=== PATIENT | female | born 1975 | race Caucasian/White ===

== ENCOUNTER 2018-06-30 14:21 | Emergency (ER) | payer MEDICARE, MEDICAID, SELFPAY ==
[2018-06-30 14:31] VITALS: BP 161/104; PULSE 105; RESP 24; TEMP 36.1; O2SAT 94; BMI 70.4
--- NOTE | 2018-06-30 14:44 | ED.URI ---
HPI - URI/Sore Throat General Chief Complaint: Upper Respiratory Symptoms Stated Complaint: TROUBLE BREATHIG,CONGESTION Time Seen by Provider: 06/30/18 14:44 Source: patient Mode of arrival: ambulatory Limitations: no limitations History of Present Illness HPI Narrative: The patient complains of difficulty breathing. She has had dyspnea for 4 days, with a nonproductive cough. She has no sinus congestion or sore throat. She denies chest pain. She has asthma. She is on diuretics, she has morbid obesity and peripheral edema. She has no known history of CHF. She has no history of hemoptysis, she denies orthopnea. She has no associated abdominal pain. She has severe lower extremity edema, perhaps worse. She does have tenderness in both lower extremities. She denies fever chills with the above complaints. Related Data Home Medications Medication Instructions Recorded Confirmed [PROBIOTIC] 1 tab PO QDAY #0 01/18/16 05/08/18 Proventil HFA 90 mcg See Rx Instructions .ROUTE .COMPLEX 03/05/18 05/08/18 cholecalciferol (vitamin D3) 5,000 5,000 unit PO DAILY 05/08/18 05/08/18 unit capsule Previous Rx's Medication Instructions Recorded Disabled Parking Permit dev #1 02/21/16 fluticasone-salmeterol [Advair 1 puff INH BID #60 dose 04/17/16 Diskus] ipratropium-albuterol 3 ml INH Q6HP PRN #90 ea 04/17/16 propranolol 20 mg PO BID #60 tab 07/17/16 chlorthalidone 25 mg tablet See Rx Instructions PO DAILY #30 03/05/18 tab ibuprofen 800 mg tablet 800 mg PO .QDAY PRN #90 tab 03/05/18 fenofibrate 160 mg tablet 160 mg PO DAILY #30 tab 03/27/18 QUAD CANE #1 ea 05/08/18 spironolactone 25 mg tablet 25 mg PO DAILY #30 tab 05/08/18 tramadol 50 mg tablet 50 mg PO QID #40 tab 05/08/18 Allergies Allergy/AdvReac Type Severity Reaction Status Date / Time latex Allergy Rash Verified 06/30/18 14:35 oxycodone [OXYCODONE] AdvReac Intermediate Irritabilit Verified 06/30/18 14:34 y Review of Systems Review of Systems ROS Unobtainable: All systems reviewed & are unremarkable except as noted in HPI and below Constitutional Denies chills, Denies fever(s), Denies lethargy and Denies weakness Eyes Denies change in vision, Denies eye discharge and Denies irritation ENT Ears, Nose, Mouth, and Throat: Denies change in voice, Denies neck pain, Denies sinus pressure and Denies sore throat Cardiovascular Denies chest pain, Denies irregular heart rhythm, Denies lightheadedness, Denies palpitations, Reports dyspnea and Denies orthopnea Respiratory Reports cough (Nonproductive), Reports dyspnea and Denies wheezing Gastrointestinal Gastrointestinal: Denies abdominal pain, Denies change in bowel habits, Denies diarrhea, Denies nausea and Denies vomiting Musculoskeletal Denies joint swelling and Denies neck pain Integumentary/Breasts Denies erythema, Denies rash and Denies wounds Neurologic Denies weakness Endocrine Denies palpitations Allergic/Immunologic Denies wheezing [facility] Medical History Hypertension (Chronic) Migraines (Chronic) Sleep apnea (Chronic) Ovarian cyst (Resolved 03/28/15) Pneumonia (Resolved 2008) Surgical History History of laparoscopic appendectomy (Resolved 03/28/15) History of ovarian cystectomy (Resolved) History of placement of ear tubes (Resolved) History of tonsillectomy (Resolved) Family History Father No problems noted. Mother No problems noted. Grandfather No problems noted. Grandmother No problems noted. Grandfather No problems noted. Grandmother No problems noted. Sister No problems noted. Social History Smoking Status: Former smoker Tobacco: How many years used: 17 second hand exposure: No alcohol intake: former (I only drank occasionally. I haven't had anything for over 10 years. ) Family History Father No problems noted. Mother No problems noted. Grandfather No problems noted. Grandmother No problems noted. Grandfather No problems noted. Grandmother No problems noted. Sister No problems noted. Social History Smoking Status: Former smoker Tobacco: How many years used: 17 second hand exposure: No alcohol intake: former (I only drank occasionally. I haven't had anything for over 10 years. ) Exam Initial Vital Signs Initial Vital Signs: Vital Signs Temperature 97.0 F L 06/30/18 14:31 Pulse Rate 105 H 06/30/18 14:31 Respiratory Rate 24 06/30/18 14:31 Blood Pressure 161/104 H 06/30/18 14:31 Pulse Oximetry 94 06/30/18 14:31 Const General: cooperative and well developed Nutritional Appearance: well nourished Orientation: alert, awake, oriented x3 and not confused HENMT Head: normocephalic and atraumatic Nose: No nasal discharge Face and sinus: sinuses nontender and face symmetric Mouth: oral mucosae normal and moist mucous membranes Throat: posterior oropharynx normal, tonsils normal and uvula midline Neck Neck: No JVD Chest Chest: normal inspection of the chest Resp Effort & Inspection: normal respiratory effort, able to speak in complete sentences, no respiratory distress and no use of accessory muscles Auscultation: clear to auscultation bilaterally, no rales, no rhonchi and wheezes scattered wheezes Cardio Rate: regular rate Rhythm: regular rhythm Heart Sounds: no click, no gallops, no murmurs and no rubs Pulses: normal peripheral pulses GI Inspection: non-distended Palpation: soft, no hepatosplenomegaly, No guarding, No pulsatile mass and No tender Auscultation: normal bowel sounds Skin General: no rashes or lesions noted, No jaundice and No petechiae Neuro General: alert, oriented x3, gait normal and no focal motor deficits Speech: speech normal Extrem General: full ROM, no clubbing, cyanosis or edema, calf tenderness (Mild, bilateral) and edema (4+ bilateral lower extremities) Course Orders Ordered: ED Orders 06/30/18 14:38 Consult to Respiratory Therapy Evaluate & Treat 06/30/18 14:49 EKG-12 Lead Stat 06/30/18 14:51 Chest [XR chest 2V] Stat 06/30/18 14:52 US periph venous low extrem bi Stat 06/30/18 15:08 B Type Natriuretic Peptide Stat Basic Metabolic Panel Stat Complete Blood Count AUTO DIFF Stat D Dimer Stat Troponin & CK Cardiac Panel Stat Discontinued Medications Albuterol (Ventolin) 2.5 mg INH NOW PRN PRN Reason: Shortness Of Breath Or Wheezing Last Admin: 06/30/18 15:06 Dose: 2.5 mg Albuterol/Ipratropium (Duoneb) 3 ml INH NOW ONE Stop: 06/30/18 14:48 Last Admin: 06/30/18 14:54 Dose: 3 ml Amoxicillin/Clavulanate Potassium (Augmentin 875-125 Mg) 1 tab PO NOW ONE Stop: 06/30/18 17:04 Last Admin: 06/30/18 17:08 Dose: 1 tab Vital Signs - 8 hr 06/30/18 14:31 06/30/18 14:54 06/30/18 15:06 Temperature 97.0 F L Pulse Rate 105 H 96 H 96 H Respiratory Rate 24 20 20 Blood Pressure 161/104 H Blood Pressure [Right Arm] Pulse Oximetry 94 92 93 06/30/18 17:11 Temperature Pulse Rate 84 Respiratory Rate 22 Blood Pressure Blood Pressure [Right Arm] 145/68 H Pulse Oximetry 97 MDM - URI/Sore Throat Lab Data Result diagrams: 06/30/18 15:08 06/30/18 15:08 Lab Results 06/30/18 06/30/18 06/30/18 Range/Units 15:08 15:08 15:08 WBC 9.4 (4.5-11.0) X10^3/uL RBC 4.71 (4.0-5.2) X10^6/uL Hgb 12.9 (12.0-16.0) g/dL Hct 39.1 (36-46) % MCV 83.0 (80-100) fL MCH 27.4 (26-34) PG MCHC 33.1 (30-36) % RDW 15.4 H (11.6-14.8) % Plt Count 244 (150-400) X10^3/uL Neut % (Auto) 66.6 (50-75) % Lymph % (Auto) 24.3 L (25-40) % [place] % (Auto) 6.9 (3-14) % Eos % (Auto) 1.7 L (2-4) % Baso % (Auto) 0.5 (0-2) % Neut # (Auto) 6200 (3004-5459) /uL Lymph # (Auto) 2300 (6622-9664) /uL [place] # (Auto) 600 (0-900) /uL Eos # (Auto) 200 (0-450) /uL Baso # (Auto) 0 (0-100) /uL D-Dimer 324 H (<230) ng/mL Sodium 139 (137-145) mmol/L Potassium 3.8 (3.4-5.1) mmol/L Chloride 100 (98-107) mmol/L Carbon Dioxide 29 (22-32) mmol/L BUN 10 (7-17) mg/dL Creatinine 0.60 (0.52-1.04) mg/dL Estimated GFR > 60.0 (>60) mL/min BUN/Creatinine Ratio 16.7 (6-22) Glucose 125 H (70-100) mg/dL Calcium 9.3 (8.4-10.2) mg/dL Total Creatine Kinase 119 (30-135) U/L CK-MB (CK-2) 0.28 (<2.37) ng/mL CK-MB (CK-2) Rel Index 0.2 L (1.5-5.0) % Troponin I < 0.012 (0.01-0.034) ng/mL B-Natriuretic Peptide < 100 (<100) Imaging Data Chest x-ray: Radiologist's impression: [place] [address] XRay Report Signed Patient: Cady Castillo MMR#: [id number] : 1975Acct:[id number] Age/Sex: 42 / FDate of Service: 06/30/18 Loc: ED Accession Number: [id number] Procedure: XR chest 2V Ordering Provider: Niels Eason M.D. PROCEDURE: XR CHEST 2V INDICATIONS: sob, coughing, wheezing TECHNIQUE: 2 views of the chest were acquired. COMPARISON: None. FINDINGS: Surgical changes and devices: None. Lungs and pleura: Lung volumes are slightly decreased with minimal left to right streaky opacities favored to represent atelectasis. No pleural effusions or pneumothorax. Mediastinum: Mediastinal contours are normal. Heart size is normal. Bones and chest wall: No suspicious bony abnormalities. Soft tissues appear unremarkable. IMPRESSION: Slightly diminished lung volumes with minimal left greater than right streaky opacities which are favored to represent atelectasis. Developing airspace disease/pneumonia not excluded if clinically appropriate. Dictated by: Kamlesh Osman M.D. on 06/30/2018 at 15:53 Approved by: Kamlesh Osman M.D. on 06/30/2018 at 15:54 Bilateral lower extremity Doppler ultrasound:: Radiologist's impression: [address] [address] Ultrasound Report Signed Patient: Cady Castillo [facility]#: [id number] : 1975Acct:[id number] Age/Sex: 42 / FDate of Service: 06/30/18 Loc: ED Accession Number: [id number] Procedure: US periph venous low extrem bi Ordering Provider: Niels Eason M.D. PROCEDURE: US PERIPH VENOUS LOW EXTREM BI INDICATIONS: EDEMA TECHNIQUE: Real-time imaging, as well as color and pulse Doppler interrogation, were performed of the deep veins of both legs from the inguinal ligament to the popliteal fossa. COMPARISON: None. FINDINGS: The deep veins are normally compressible, and free of intraluminal thrombus. Color and pulse Doppler demonstrate normal phasic intravascular flow. There is normal augmentation response to distal compression maneuver. IMPRESSION: Negative for deep venous thrombosis of the bilateral lower extremities. Dictated by: Kamlesh Osman M.D. on 06/30/2018 at 15:49 Approved by: Kamlesh Osman M.D. on 06/30/2018 at 15:50 ECG Data Attestation: I personally reviewed and interpreted this ECG as follows: (Normal sinus rhythm rate 92 bpm. Low-voltage QRS in the precordial leads. Minimal voltage criteria for LVH. No ectopy. Normal intervals. No acute ST T wave changes.) Discharge Plan Departure Patient Disposition: Home Clinical Impression: Bronchitis, Dependent edema Discharge Date/Time: 06/30/18 17:28 Interventions: ED Discharge Assessment Last Done: 06/30/18 17:28 Instructions: DI for Acute Bronchitis Activity Restrictions/Additional Instructions: Continue your current medications. Use your inhalers as needed. Respiratory therapy will start you on incentive spirometer to help keep your lungs clear. I called in Augmentin to [facility] in [place], [place]. The medication will be ready today. Talk to your doctor about the peripheral swelling. You need medication to help decrease the swelling. Return to the ER as needed. Prescriptions: No Action Proventil HFA 90 mcg See Patient Comments .ROUTE .COMPLEX RF: 0 chlorthalidone 25 mg tablet See Rx Instructions PO DAILY Qty: 30 RF: 1 ibuprofen 800 mg tablet 800 mg PO .QDAY PRN (Reason: pain) Qty: 90 RF: 3 fenofibrate 160 mg tablet 160 mg PO DAILY Qty: 30 RF: 6 cholecalciferol (vitamin D3) 5,000 unit capsule 5,000 unit PO DAILY RF: 0 tramadol 50 mg tablet 50 mg PO QID Qty: 40 RF: 0 QUAD CANE Qty: 1 RF: 0 spironolactone 25 mg tablet 25 mg PO DAILY Qty: 30 RF: 1 [PROBIOTIC] 1 tab PO QDAY Qty: 0 RF: 0 Disabled Parking Permit Qty: 1 RF: 0 ipratropium-albuterol 3 ML solution for nebulization 3 ml INH Q6HP PRNQty: 90 RF: 1 fluticasone-salmeterol [Advair Diskus] 500 MCG/50 MCG blister with device 1 puff INH BID Qty: 60 RF: 1 propranolol 20 MG tablet 20 mg PO BID Qty: 60 RF: 12 Referrals: Mayda Mars PA-C [Primary Care Provider] -
--- NOTE | 2018-06-30 14:51 | DI.RAD.S_ITS ---
PROCEDURE: XR CHEST 2V INDICATIONS: sob, coughing, wheezing TECHNIQUE: 2 views of the chest were acquired. COMPARISON: None. FINDINGS: Surgical changes and devices: None. Lungs and pleura: Lung volumes are slightly decreased with minimal left to right streaky opacities favored to represent atelectasis. No pleural effusions or pneumothorax. Mediastinum: Mediastinal contours are normal. Heart size is normal. Bones and chest wall: No suspicious bony abnormalities. Soft tissues appear unremarkable. IMPRESSION: Slightly diminished lung volumes with minimal left greater than right streaky opacities which are favored to represent atelectasis. Developing airspace disease/pneumonia not excluded if clinically appropriate. Dictated by: Kamlesh Osman M.D. on 06/30/2018 at 15:53 Approved by: Kamlesh Osman M.D. on 06/30/2018 at 15:54
--- NOTE | 2018-06-30 14:52 | DI.US.S_ITS ---
PROCEDURE: US PERIPH VENOUS LOW EXTREM BI INDICATIONS: EDEMA TECHNIQUE: Real-time imaging, as well as color and pulse Doppler interrogation, were performed of the deep veins of both legs from the inguinal ligament to the popliteal fossa. COMPARISON: None. FINDINGS: The deep veins are normally compressible, and free of intraluminal thrombus. Color and pulse Doppler demonstrate normal phasic intravascular flow. There is normal augmentation response to distal compression maneuver. IMPRESSION: Negative for deep venous thrombosis of the bilateral lower extremities. Dictated by: Kamlesh Osman M.D. on 06/30/2018 at 15:49 Approved by: Kamlesh Osman M.D. on 06/30/2018 at 15:50
[2018-06-30 14:54] VITALS: PULSE 96; RESP 20; O2SAT 92
[2018-06-30] MEDS: ALBUTEROL/IPRATROPIUM 3 ML AMPUL INH (14:54)
[2018-06-30 15:06] VITALS: PULSE 96; RESP 20; O2SAT 93
[2018-06-30] MEDS: ALBUTEROL 2.5 MG/3 ML NEB (ADULT) INH (15:06)
[2018-06-30 15:18] LABS: Add Manual Diff / Slide Review NO; Basophils Absolute Auto 0 /uL (0-100); Basophils Percent Auto 0.5 % (0-2); Eosinophils Absolute Auto 200 /uL (0-450); Eosinophils Percent Auto 1.7 % (2-4); Hematocrit 39.1 % (36-46); Hemoglobin 12.9 g/dL (12.0-16.0); Lymphocytes Absolute Auto 2300 /uL (1100-4500); Lymphocytes Percent Auto 24.3 % (25-40); Mean Corpuscular HGB Conc 33.1 % (30-36); Mean Corpuscular Hemoglobin 27.4 PG (26-34); Monocytes Absolute Auto 600 /uL (0-900); Monocytes Percent Auto 6.9 % (3-14); Neutrophils Absolute Auto 6200 /uL (1500-7000); Neutrophils Percent Auto 66.6 % (50-75); Platelet Count 244 X10^3/uL (150-400); Red Blood Cell Count 4.71 X10^6/uL (4.0-5.2); Red Cell Distribution Width 15.4 % (11.6-14.8); White Blood Cell Count 9.4 X10^3/uL (4.5-11.0)
[2018-06-30 15:25] LABS: D Dimer 324 ng/mL (<230)
[2018-06-30 15:26] LABS: BUN Creatinine Ratio 16.7 (6-22); Blood Urea Nitrogen 10 mg/dL (7-17); Calcium 9.3 mg/dL (8.4-10.2); Carbon Dioxide 29 mmol/L (22-32); Chloride 100 mmol/L (98-107); Creatine Kinase 119 U/L (30-135); Estimated Glomerular Filt Rate > 60.0 mL/min (>60); Glucose 125 mg/dL (70-100); HEMOLYSIS < 15 (0-50); Potassium 3.8 mmol/L (3.4-5.1); Sodium 139 mmol/L (137-145)
--- NOTE | 2018-06-30 15:28 | ED_ITS ---
HPI - URI/Sore Throat General Chief Complaint: Upper Respiratory Symptoms Stated Complaint: TROUBLE BREATHIG,CONGESTION Time Seen by Provider: 06/30/18 14:44 Source: patient Mode of arrival: ambulatory Limitations: no limitations History of Present Illness HPI Narrative: The patient complains of difficulty breathing. She has had dyspnea for 4 days, with a nonproductive cough. She has no sinus congestion or sore throat. She denies chest pain. She has asthma. She is on diuretics, she has morbid obesity and peripheral edema. She has no known history of CHF. She has no history of hemoptysis, she denies orthopnea. She has no associated abdominal pain. She has severe lower extremity edema, perhaps worse. She does have tenderness in both lower extremities. She denies fever chills with the above complaints. Related Data Home Medications Medication Instructions Recorded Confirmed [PROBIOTIC] 1 tab PO QDAY #0 01/18/16 05/08/18 Proventil HFA 90 mcg See Rx Instructions .ROUTE .COMPLEX 03/05/18 05/08/18 cholecalciferol (vitamin D3) 5,000 5,000 unit PO DAILY 05/08/18 05/08/18 unit capsule Previous Rx's Medication Instructions Recorded Disabled Parking Permit dev #1 02/21/16 fluticasone-salmeterol [Advair 1 puff INH BID #60 dose 04/17/16 Diskus] ipratropium-albuterol 3 ml INH Q6HP PRN #90 ea 04/17/16 propranolol 20 mg PO BID #60 tab 07/17/16 chlorthalidone 25 mg tablet See Rx Instructions PO DAILY #30 03/05/18 tab ibuprofen 800 mg tablet 800 mg PO .QDAY PRN #90 tab 03/05/18 fenofibrate 160 mg tablet 160 mg PO DAILY #30 tab 03/27/18 QUAD CANE #1 ea 05/08/18 spironolactone 25 mg tablet 25 mg PO DAILY #30 tab 05/08/18 tramadol 50 mg tablet 50 mg PO QID #40 tab 05/08/18 Allergies Allergy/AdvReac Type Severity Reaction Status Date / Time latex Allergy Rash Verified 06/30/18 14:35 oxycodone [OXYCODONE] AdvReac Intermediate Irritabilit Verified 06/30/18 14:34 y Review of Systems Review of Systems ROS Unobtainable: All systems reviewed & are unremarkable except as noted in HPI and below Constitutional Denies chills, Denies fever(s), Denies lethargy and Denies weakness Eyes Denies change in vision, Denies eye discharge and Denies irritation ENT Ears, Nose, Mouth, and Throat: Denies change in voice, Denies neck pain, Denies sinus pressure and Denies sore throat Cardiovascular Denies chest pain, Denies irregular heart rhythm, Denies lightheadedness, Denies palpitations, Reports dyspnea and Denies orthopnea Respiratory Reports cough (Nonproductive), Reports dyspnea and Denies wheezing Gastrointestinal Gastrointestinal: Denies abdominal pain, Denies change in bowel habits, Denies diarrhea, Denies nausea and Denies vomiting Musculoskeletal Denies joint swelling and Denies neck pain Integumentary/Breasts Denies erythema, Denies rash and Denies wounds Neurologic Denies weakness Endocrine Denies palpitations Allergic/Immunologic Denies wheezing [facility] Medical History Hypertension (Chronic) Migraines (Chronic) Sleep apnea (Chronic) Ovarian cyst (Resolved 03/28/15) Pneumonia (Resolved 2008) Surgical History History of laparoscopic appendectomy (Resolved 03/28/15) History of ovarian cystectomy (Resolved) History of placement of ear tubes (Resolved) History of tonsillectomy (Resolved) Family History Father No problems noted. Mother No problems noted. Grandfather No problems noted. Grandmother No problems noted. Grandfather No problems noted. Grandmother No problems noted. Sister No problems noted. Social History Smoking Status: Former smoker Tobacco: How many years used: 17 second hand exposure: No alcohol intake: former (I only drank occasionally. I haven't had anything for over 10 years. ) Family History Father No problems noted. Mother No problems noted. Grandfather No problems noted. Grandmother No problems noted. Grandfather No problems noted. Grandmother No problems noted. Sister No problems noted. Social History Smoking Status: Former smoker Tobacco: How many years used: 17 second hand exposure: No alcohol intake: former (I only drank occasionally. I haven't had anything for over 10 years. ) Exam Initial Vital Signs Initial Vital Signs: Vital Signs Temperature 97.0 F L 06/30/18 14:31 Pulse Rate 105 H 06/30/18 14:31 Respiratory Rate 24 06/30/18 14:31 Blood Pressure 161/104 H 06/30/18 14:31 Pulse Oximetry 94 06/30/18 14:31 Const General: cooperative and well developed Nutritional Appearance: well nourished Orientation: alert, awake, oriented x3 and not confused HENMT Head: normocephalic and atraumatic Nose: No nasal discharge Face and sinus: sinuses nontender and face symmetric Mouth: oral mucosae normal and moist mucous membranes Throat: posterior oropharynx normal, tonsils normal and uvula midline Neck Neck: No JVD Chest Chest: normal inspection of the chest Resp Effort & Inspection: normal respiratory effort, able to speak in complete sentences, no respiratory distress and no use of accessory muscles Auscultation: clear to auscultation bilaterally, no rales, no rhonchi and wheezes scattered wheezes Cardio Rate: regular rate Rhythm: regular rhythm Heart Sounds: no click, no gallops, no murmurs and no rubs Pulses: normal peripheral pulses GI Inspection: non-distended Palpation: soft, no hepatosplenomegaly, No guarding, No pulsatile mass and No tender Auscultation: normal bowel sounds Skin General: no rashes or lesions noted, No jaundice and No petechiae Neuro General: alert, oriented x3, gait normal and no focal motor deficits Speech: speech normal Extrem General: full ROM, no clubbing, cyanosis or edema, calf tenderness (Mild, bilateral) and edema (4+ bilateral lower extremities) Course Orders Ordered: ED Orders 06/30/18 14:38 Consult to Respiratory Therapy Evaluate & Treat 06/30/18 14:49 EKG-12 Lead Stat 06/30/18 14:51 Chest [XR chest 2V] Stat 06/30/18 14:52 US periph venous low extrem bi Stat 06/30/18 15:08 B Type Natriuretic Peptide Stat Basic Metabolic Panel Stat Complete Blood Count AUTO DIFF Stat D Dimer Stat Troponin & CK Cardiac Panel Stat Discontinued Medications Albuterol (Ventolin) 2.5 mg INH NOW PRN PRN Reason: Shortness Of Breath Or Wheezing Last Admin: 06/30/18 15:06 Dose: 2.5 mg Albuterol/Ipratropium (Duoneb) 3 ml INH NOW ONE Stop: 06/30/18 14:48 Last Admin: 06/30/18 14:54 Dose: 3 ml Amoxicillin/Clavulanate Potassium (Augmentin 875-125 Mg) 1 tab PO NOW ONE Stop: 06/30/18 17:04 Last Admin: 06/30/18 17:08 Dose: 1 tab Vital Signs - 8 hr 06/30/18 14:31 06/30/18 14:54 06/30/18 15:06 Temperature 97.0 F L Pulse Rate 105 H 96 H 96 H Respiratory Rate 24 20 20 Blood Pressure 161/104 H Blood Pressure [Right Arm] Pulse Oximetry 94 92 93 06/30/18 17:11 Temperature Pulse Rate 84 Respiratory Rate 22 Blood Pressure Blood Pressure [Right Arm] 145/68 H Pulse Oximetry 97 MDM - URI/Sore Throat Lab Data Result diagrams: 06/30/18 15:08 06/30/18 15:08 Lab Results 06/30/18 06/30/18 06/30/18 Range/Units 15:08 15:08 15:08 WBC 9.4 (4.5-11.0) X10^3/uL RBC 4.71 (4.0-5.2) X10^6/uL Hgb 12.9 (12.0-16.0) g/dL Hct 39.1 (36-46) % MCV 83.0 (80-100) fL MCH 27.4 (26-34) PG MCHC 33.1 (30-36) % RDW 15.4 H (11.6-14.8) % Plt Count 244 (150-400) X10^3/uL Neut % (Auto) 66.6 (50-75) % Lymph % (Auto) 24.3 L (25-40) % Blair % (Auto) 6.9 (3-14) % Eos % (Auto) 1.7 L (2-4) % Baso % (Auto) 0.5 (0-2) % Neut # (Auto) 6200 (9800-4993) /uL Lymph # (Auto) 2300 (3395-1747) /uL Blair # (Auto) 600 (0-900) /uL Eos # (Auto) 200 (0-450) /uL Baso # (Auto) 0 (0-100) /uL D-Dimer 324 H (<230) ng/mL Sodium 139 (137-145) mmol/L Potassium 3.8 (3.4-5.1) mmol/L Chloride 100 (98-107) mmol/L Carbon Dioxide 29 (22-32) mmol/L BUN 10 (7-17) mg/dL Creatinine 0.60 (0.52-1.04) mg/dL Estimated GFR > 60.0 (>60) mL/min BUN/Creatinine Ratio 16.7 (6-22) Glucose 125 H (70-100) mg/dL Calcium 9.3 (8.4-10.2) mg/dL Total Creatine Kinase 119 (30-135) U/L CK-MB (CK-2) 0.28 (<2.37) ng/mL CK-MB (CK-2) Rel Index 0.2 L (1.5-5.0) % Troponin I < 0.012 (0.01-0.034) ng/mL B-Natriuretic Peptide < 100 (<100) Imaging Data Chest x-ray: Radiologist's impression: [place] [address] XRay Report Signed Patient: Cady Castillo MMR#: [id number] : 1975Acct:[id number] Age/Sex: 42 / FDate of Service: 06/30/18 Loc: ED Accession Number: [id number] Procedure: XR chest 2V Ordering Provider: Niels Eason M.D. PROCEDURE: XR CHEST 2V INDICATIONS: sob, coughing, wheezing TECHNIQUE: 2 views of the chest were acquired. COMPARISON: None. FINDINGS: Surgical changes and devices: None. Lungs and pleura: Lung volumes are slightly decreased with minimal left to right streaky opacities favored to represent atelectasis. No pleural effusions or pneumothorax. Mediastinum: Mediastinal contours are normal. Heart size is normal. Bones and chest wall: No suspicious bony abnormalities. Soft tissues appear unremarkable. IMPRESSION: Slightly diminished lung volumes with minimal left greater than right streaky opacities which are favored to represent atelectasis. Developing airspace disease/pneumonia not excluded if clinically appropriate. Dictated by: Kamlesh Osman M.D. on 06/30/2018 at 15:53 Approved by: Kamlesh Osman M.D. on 06/30/2018 at 15:54 Bilateral lower extremity Doppler ultrasound:: Radiologist's impression: [address] [address] Ultrasound Report Signed Patient: Cady Castillo [facility]#: [id number] : 1975Acct:[id number] Age/Sex: 42 / FDate of Service: 06/30/18 Loc: ED Accession Number: [id number] Procedure: US periph venous low extrem bi Ordering Provider: Niels Eason M.D. PROCEDURE: US PERIPH VENOUS LOW EXTREM BI INDICATIONS: EDEMA TECHNIQUE: Real-time imaging, as well as color and pulse Doppler interrogation, were performed of the deep veins of both legs from the inguinal ligament to the popliteal fossa. COMPARISON: None. FINDINGS: The deep veins are normally compressible, and free of intraluminal thrombus. Color and pulse Doppler demonstrate normal phasic intravascular flow. There is normal augmentation response to distal compression maneuver. IMPRESSION: Negative for deep venous thrombosis of the bilateral lower extremities. Dictated by: Kamlesh Osman M.D. on 06/30/2018 at 15:49 Approved by: Kamlesh Osman M.D. on 06/30/2018 at 15:50 ECG Data Attestation: I personally reviewed and interpreted this ECG as follows: (Normal sinus rhythm rate 92 bpm. Low-voltage QRS in the precordial leads. Minimal voltage criteria for LVH. No ectopy. Normal intervals. No acute ST T wave changes.) Discharge Plan Departure Patient Disposition: Home Clinical Impression: Bronchitis, Dependent edema Discharge Date/Time: 06/30/18 17:28 Interventions: ED Discharge Assessment Last Done: 06/30/18 17:28 Instructions: DI for Acute Bronchitis Activity Restrictions/Additional Instructions: Continue your current medications. Use your inhalers as needed. Respiratory therapy will start you on incentive spirometer to help keep your lungs clear. I called in Augmentin to [facility] in [place], [place]. The medication will be ready today. Talk to your doctor about the peripheral swelling. You need medication to help decrease the swelling. Return to the ER as needed. Prescriptions: No Action Proventil HFA 90 mcg See Patient Comments .ROUTE .COMPLEX RF: 0 chlorthalidone 25 mg tablet See Rx Instructions PO DAILY Qty: 30 RF: 1 ibuprofen 800 mg tablet 800 mg PO .QDAY PRN (Reason: pain) Qty: 90 RF: 3 fenofibrate 160 mg tablet 160 mg PO DAILY Qty: 30 RF: 6 cholecalciferol (vitamin D3) 5,000 unit capsule 5,000 unit PO DAILY RF: 0 tramadol 50 mg tablet 50 mg PO QID Qty: 40 RF: 0 QUAD CANE Qty: 1 RF: 0 spironolactone 25 mg tablet 25 mg PO DAILY Qty: 30 RF: 1 [PROBIOTIC] 1 tab PO QDAY Qty: 0 RF: 0 Disabled Parking Permit Qty: 1 RF: 0 ipratropium-albuterol 3 ML solution for nebulization 3 ml INH Q6HP PRNQty: 90 RF: 1 fluticasone-salmeterol [Advair Diskus] 500 MCG/50 MCG blister with device 1 puff INH BID Qty: 60 RF: 1 propranolol 20 MG tablet 20 mg PO BID Qty: 60 RF: 12 Referrals: Mayda Mars PA-C [Primary Care Provider] -
[2018-06-30 15:37] LABS: B Type Natriuretic Peptide < 100 (<100)
[2018-06-30 15:38] LABS: Troponin I < 0.012 ng/mL (0.01-0.034)
[2018-06-30 15:41] LABS: CKMB % Relative Index 0.2 % (1.5-5.0); Creatine Kinase MB 0.28 ng/mL (<2.37)
[2018-06-30] MEDS: AMOXICILLIN/CLAV 875/125 MG 1 TAB PO (17:08)
[2018-06-30 17:11] VITALS: BP 145/68; PULSE 84; RESP 22; O2SAT 97
== END 2018-06-30 17:28 | disposition home or self-care (01) ==
PROVIDERS: Emergency Provider Emergency Medicine; PCP Physician Assistant
DX: J40 Bronchitis, not specified as acute or chronic (principal); R60.9 Edema, unspecified; R06.09 Other forms of dyspnea; I10 Essential (primary) hypertension
CPT/HCPCS: 36415; 71046; 80048; 82550; 82553; 83880; 84484; 85025; 85379; 93005; 93010; 93970; 94640; 99282; 99285; J7613

== ENCOUNTER 2018-10-18 08:39 | Emergency (ER) | payer MEDICARE, MEDICAID, SELFPAY ==
[2018-10-18 08:40] VITALS: BP 142/98; PULSE 96; RESP 24; TEMP 36.7; O2SAT 94; BMI 74.2
--- NOTE | 2018-10-18 09:19 | ED.FEMALEGU ---
HPI - Female Genitourinary General Chief complaint: Urogenital-Female Stated complaint: bad pain in right side kidney area,nausea Time Seen by Provider: 10/18/18 09:15 Source: patient Mode of arrival: ambulatory Limitations: no limitations History of Present Illness HPI Narrative: Patient is a 43-year-old female with right flank pain. She said it started last night it comes and goes radiates to her abdomen. She has been feeling nauseated no vomiting. sHe says she has felt hot and cold at times. This is happened to her before when she has had UTI. However not been this bad. She denies any history of kidney stone Female Urogenital Radiation: R Flank Related Data Home Medications Medication Instructions Recorded Confirmed [PROBIOTIC] 1 tab PO QDAY #0 01/18/16 05/08/18 Proventil HFA 90 mcg See Rx Instructions .ROUTE .COMPLEX 03/05/18 05/08/18 cholecalciferol (vitamin D3) 5,000 5,000 unit PO DAILY 05/08/18 05/08/18 unit capsule ibuprofen 800 mg PO DAILY 10/18/18 10/18/18 Previous Rx's Medication Instructions Recorded Disabled Parking Permit dev #1 02/21/16 fluticasone propion-salmeterol 1 puff INH BID #60 dose 04/17/16 [Advair Diskus] ipratropium-albuterol 3 ml INH Q6HP PRN #90 ea 04/17/16 propranolol 20 mg PO BID #60 tab 07/17/16 chlorthalidone 25 mg tablet See Rx Instructions PO DAILY #30 03/05/18 tab fenofibrate 160 mg tablet 160 mg PO DAILY #30 tab 03/27/18 QUAD CANE #1 ea 05/08/18 spironolactone 25 mg tablet 25 mg PO DAILY #30 tab 05/08/18 tramadol 50 mg tablet 50 mg PO QID #40 tab 05/08/18 hydrocodone-acetaminophen [Skandia] 1 tab PO Q6H PRN #10 tab 10/18/18 Allergies Allergy/AdvReac Type Severity Reaction Status Date / Time latex Allergy Rash Verified 10/18/18 08:54 oxycodone [OXYCODONE] AdvReac Intermediate Irritabilit Verified 10/18/18 08:54 y Review of Systems Review of Systems ROS Unobtainable: All systems reviewed & are unremarkable except as noted in HPI and below Constitutional Reports body ache(s), Reports chills, Denies fever(s), Denies lethargy and Denies weakness Eyes Denies change in vision, Denies eye discharge, Denies irritation and Denies loss of vision ENT Ears, Nose, Mouth, and Throat: Denies change in voice, Denies neck pain and Denies sore throat Cardiovascular Denies chest pain, Denies irregular heart rhythm, Denies lightheadedness, Denies palpitations, Denies dyspnea, Denies dyspnea on exertion and Denies orthopnea Respiratory Denies cough, Denies dyspnea, Denies dyspnea on exertion and Denies wheezing Gastrointestinal Gastrointestinal: Denies abdominal pain, Denies diarrhea, Reports nausea and Denies vomiting Genitourinary Denies hematuria, Reports flank pain, Denies urinary incontinence and Denies urinary urgency Musculoskeletal Denies neck pain Integumentary/Breasts Denies pruritus, Denies erythema, Denies rash and Denies wounds Neurologic Denies loss of vision and Denies weakness Endocrine Denies palpitations Allergic/Immunologic Denies wheezing [facility] Medical History Hypertension (Chronic) Migraines (Chronic) Sleep apnea (Chronic) Ovarian cyst (Resolved 03/28/15) Pneumonia (Resolved 2008) Surgical History History of laparoscopic appendectomy (Resolved 03/28/15) History of ovarian cystectomy (Resolved) History of placement of ear tubes (Resolved) History of tonsillectomy (Resolved) Family History Father No problems noted. Mother No problems noted. Grandfather No problems noted. Grandmother No problems noted. Grandfather No problems noted. Grandmother No problems noted. Sister No problems noted. Social History Smoking Status: Former smoker Tobacco: How many years used: 17 second hand exposure: No alcohol intake: former (I only drank occasionally. I haven't had anything for over 10 years. ) Family History Father No problems noted. Mother No problems noted. Grandfather No problems noted. Grandmother No problems noted. Grandfather No problems noted. Grandmother No problems noted. Sister No problems noted. Social History Smoking Status: Former smoker Tobacco: How many years used: 17 second hand exposure: No alcohol intake: former (I only drank occasionally. I haven't had anything for over 10 years. ) Exam Initial Vital Signs Initial Vital Signs: Vital Signs Temperature 98.0 F 10/18/18 08:40 Pulse Rate 96 H 10/18/18 08:40 Respiratory Rate 24 10/18/18 08:40 Blood Pressure 142/98 H 10/18/18 08:40 Pulse Oximetry 94 10/18/18 08:40 GENERAL: Overweight female appears in pain appears in mild pain HEENT: Head atraumatic,EOMI, pupils reactive, face symmetric, CARDIOVASCULAR: Regular rate and rhythm without murmurs, rubs or gallops. RESPIRATORY: Breath sounds equal bilaterally, no wheezes rales or rhonchi. ABDOMEN: Soft, nontender. Normoactive bowel sounds all 4 quadrants. No guarding or rebound. : Right CVA tenderness EXTREMITIES: Normal range of motion, no clubbing or edema. Neurovascularly intact NEUROLOGICAL: Alert and oriented x4.Normal gait and speech. Cranial nerves II through XII grossly intact. SKIN: Warm, dry, no laceration, no petechiae, no rashes or lesions. Course Orders Ordered: ED Orders 10/18/18 10:35 Cancer Antigen 125 Stat Complete Blood Count AUTO DIFF Stat Comprehensive Metabolic Panel Stat Lipase Stat Discontinued Medications Ketorolac Tromethamine (Toradol) 30 mg IV NOW ONE Stop: 10/18/18 09:21 Last Admin: 10/18/18 10:43 Dose: 30 mg Morphine Sulfate (Morphine) 4 mg IV NOW ONE Stop: 10/18/18 12:07 Last Admin: 10/18/18 13:02 Dose: 4 mg Ondansetron HCl (Zofran) 4 mg IV NOW ONE Stop: 10/18/18 09:21 Last Admin: 10/18/18 10:43 Dose: 4 mg Vital Signs - 8 hr 10/18/18 12:30 10/18/18 13:51 Pulse Rate 78 74 Respiratory Rate 20 20 Blood Pressure [Left Wrist] 137/93 H 102/65 Pulse Oximetry 95 93 MDM - Female Genitourinary Lab Data Attestation: I reviewed the patient's lab results. Result diagrams: 10/18/18 10:35 10/18/18 10:35 Lab Results 10/18/18 10/18/18 10/18/18 Range/Units 09:25 10:35 10:35 WBC 10.4 (4.5-11.0) X10^3/uL RBC 4.98 (4.0-5.2) X10^6/uL Hgb 13.5 (12.0-16.0) g/dL Hct 40.9 (36-46) % MCV 82.0 (80-100) fL MCH 27.1 (26-34) PG MCHC 33.0 (30-36) % RDW 15.1 H (11.6-14.8) % Plt Count 241 (150-400) X10^3/uL Neut % (Auto) 74.5 (50-75) % Lymph % (Auto) 18.4 L (25-40) % Bourbon % (Auto) 5.2 (3-14) % Eos % (Auto) 1.0 L (2-4) % Baso % (Auto) 0.9 (0-2) % Neut # (Auto) 7800 H (5665-6872) /uL Lymph # (Auto) 1900 (6697-3849) /uL Bourbon # (Auto) 500 (0-900) /uL Eos # (Auto) 100 (0-450) /uL Baso # (Auto) 100 (0-100) /uL Sodium 142 (137-145) mmol/L Potassium 4.5 (3.4-5.1) mmol/L Chloride 103 (98-107) mmol/L Carbon Dioxide 28 (22-32) mmol/L BUN 14 (7-17) mg/dL Creatinine 0.70 (0.52-1.04) mg/dL Estimated GFR > 60.0 (>60) mL/min BUN/Creatinine Ratio 20.0 (6-22) Glucose 115 H (70-100) mg/dL Calcium 9.9 (8.4-10.2) mg/dL Total Bilirubin 0.9 (0.2-1.3) mg/dL AST 48 H (14-36) IU/L ALT 44 (9-52) IU/L Alkaline Phosphatase 53 (38-126) U/L Total Protein 8.1 (6.3-8.2) g/dL Albumin 4.5 (3.5-5.0) g/dL Globulin 3.6 (1.7-4.1) g/dL Albumin/Globulin Ratio 1.3 (1.0-2.8) Lipase 57 (23-300) U/L CA 125 Antigen (0-35) U/mL Urine RBC 5-10/hpf H (0-5/HPF) Urine WBC 10-30/hpf H (0-5/HPF) Ur Squamous Epith Cells 5-10 /hpf H (0-5/HPF) Amorphous Sediment 2+ Urine Bacteria Many (>30) H (None) Ur Culture Indicated? Cult not indicated 10/18/18 Range/Units 10:35 WBC (4.5-11.0) X10^3/uL RBC (4.0-5.2) X10^6/uL Hgb (12.0-16.0) g/dL Hct (36-46) % MCV (80-100) fL MCH (26-34) PG MCHC (30-36) % RDW (11.6-14.8) % Plt Count (150-400) X10^3/uL Neut % (Auto) (50-75) % Lymph % (Auto) (25-40) % Bourbon % (Auto) (3-14) % Eos % (Auto) (2-4) % Baso % (Auto) (0-2) % Neut # (Auto) (5546-5864) /uL Lymph # (Auto) (7454-6176) /uL Bourbon # (Auto) (0-900) /uL Eos # (Auto) (0-450) /uL Baso # (Auto) (0-100) /uL Sodium (137-145) mmol/L Potassium (3.4-5.1) mmol/L Chloride (98-107) mmol/L Carbon Dioxide (22-32) mmol/L BUN (7-17) mg/dL Creatinine (0.52-1.04) mg/dL Estimated GFR (>60) mL/min BUN/Creatinine Ratio (6-22) Glucose (70-100) mg/dL Calcium (8.4-10.2) mg/dL Total Bilirubin (0.2-1.3) mg/dL AST (14-36) IU/L ALT (9-52) IU/L Alkaline Phosphatase (38-126) U/L Total Protein (6.3-8.2) g/dL Albumin (3.5-5.0) g/dL Globulin (1.7-4.1) g/dL Albumin/Globulin Ratio (1.0-2.8) Lipase (23-300) U/L CA 125 Antigen 29 (0-35) U/mL Urine RBC (0-5/HPF) Urine WBC (0-5/HPF) Ur Squamous Epith Cells (0-5/HPF) Amorphous Sediment Urine Bacteria (None) Ur Culture Indicated? Point of Care Testing Test Results Negative Urine Dip Bedside Urine Glucose Negative Bedside Urine Bilirubin - Negative Bedside Urine Ketone - Negative Urine Specific Manley 1.020 Bedside Urine Occult Blood +++ Bedside Urine pH 6.0 Bedside Urine Protein +/- 15 Bedside Urine Urobilinogen - Negative Bedside Urine Nitrite - Negative Bedside Urine Leukocytes + [address] scan - abdomen: Radiologist's impression: PROCEDURE: CT KIDNEY URETER BLADDER (KUB) INDICATIONS: right flank pain TECHNIQUE: Noncontrast 5 mm thick sections acquired from the diaphragms to the symphysis. 5 mm thick coronal and sagittal reformats were then performed. For radiation dose reduction, the following was used: automated exposure control, adjustment of mA and/or kV according to patient size. COMPARISON: [facility], CT, KIDNEY/ URETER/BLADDER, 03/27/2015, 22:48. FINDINGS: Image quality: Excellent. Lung bases: There is a left lower lobe pulmonary nodule measuring up to 6 mm on series 5 image 12 which appears stable from the prior study. Linear scarring is redemonstrated in the left base. Heart size is normal. Urinary system: There is high density within the right renal collecting system consistent with multiple nonobstructing stones including calcifications in the renal pelvis. The largest aggregate calcifications measure up to 1.3 cm within an inferior pole calyx. There is perinephric stranding without hydronephrosis. There is also mild right periureteral fat stranding without abnormal dilatation. Left kidney demonstrates no left renal stones or hydronephrosis. Left ureter is normal caliber. The urinary bladder is partially distended. No calcified bladder stones. No bladder wall thickening. Other solid organs: There is hypoattenuation of the liver compatible with fatty infiltration with relative sparing along the gallbladder fossa. The gallbladder demonstrates a small dependent stones measuring up to 0.6 cm without wall thickening or pericholecystic fluid. Pancreas is normal in contours. Spleen is normal in size. No adrenal nodules. Peritoneum and bowel: Unenhanced bowel loops demonstrate normal wall thickness and caliber. No free fluid or air. There is a large cystic mass measuring up to 30.2 x 18.2 x 17.1 cm in the lower abdomen and pelvis with thick internal septations. This appears increased in size from the prior study. The mass likely originates from the left adnexa. There is a 2nd cystic septated mass which appears to originate from the right adnexa measuring up to approximately 8.4 x 8.5 x 9.8 cm. This abuts the larger mass. Nodes and vessels: No retroperitoneal or mesenteric adenopathy by size criteria. Aorta and inferior vena cava are normal in caliber. Abdominal wall: No ventral hernias. Pelvis: No free pelvic fluid. No inguinal hernias or adenopathy. Bones: No suspicious bony lesions. No vertebral body compression fractures. IMPRESSION: 1. Right nephrolithiasis without evidence of obstructive uropathy. Nonspecific right perinephric and perirenal stranding is demonstrated which may reflect sequelae of a recently passed stone or possibly a urinary tract infection. Recommend correlation with urinalysis. 2. Large septated cystic masses within the lower abdomen and pelvis likely originating from bilateral adnexa, with the largest on the left measuring up to 30.2 cm. 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 Findings were discussed with Dr. Bridges on 10/18/18 at 10:20 AM. Dictated by: Carlos Miles M.D. on 10/18/2018 at 10:13 MDM Narrative Medical decision making narrative: Dr. Gonzalez- get CA 125 due to obesity would be better if went to [facility] in [place] CA 125 is negative for chills at axilla reassuring. Ari reddy agrees with out patient follow up. I called to schedule , but there given patient's information they will call to schedule her. Images have been pushed to [place] patient is also given a copy of labs and disc. The patient does have kidney stones she likely just passed a kidney stone as well. I believe this to actually be causing her acute pain and a large cyst with found incidentally. This is unlikely to be emergent, and unlikely to be causing her pain. Patient states they are hesitant to remove her left ovary for fear of putting her into menopause. Overall her pain is improved with Toradol but it started to come back and she did get a dose of morphine. Discharge Plan Departure Patient Disposition: Home Clinical Impression: Kidney stones Ovarian cyst Qualifiers: Laterality: unspecified laterality Qualified Code(s): N83.209 - Unspecified ovarian cyst, unspecified side Discharge Date/Time: 10/18/18 13:51 Interventions: ED Discharge Assessment Last Done: 10/18/18 13:51 Instructions: DI for Kidney Stones, DI for Ovarian Cyst Activity Restrictions/Additional Instructions: *You have been diagnosed with ovarian cyst, kidney stone *What to do: It will need surgery on year ovarian cyst. [facility] should call you to scheduled follow-up appointment *Continue to take medications as directed Skandia 1 tablet every 6 hours as needed for severe pain *Follow up with your primary care provider in 2-3 days Call [phone], if you do not hear from them by Sunday afternoon *Return to ER if you should have increasing pain persistent vomiting or any new, worsening or concerning symptoms Prescriptions: New hydrocodone-acetaminophen [Skandia] 5-325 mg tablet 1 tab PO Q6H PRN (Reason: pain) Qty: 10 RF: 0 No Action Proventil HFA 90 mcg See Patient Comments .ROUTE .COMPLEX RF: 0 chlorthalidone 25 mg tablet See Rx Instructions PO DAILY Qty: 30 RF: 1 fenofibrate 160 mg tablet 160 mg PO DAILY Qty: 30 RF: 6 cholecalciferol (vitamin D3) 5,000 unit capsule 5,000 unit PO DAILY RF: 0 tramadol 50 mg tablet 50 mg PO QID Qty: 40 RF: 0 QUAD CANE Qty: 1 RF: 0 spironolactone 25 mg tablet 25 mg PO DAILY Qty: 30 RF: 1 [PROBIOTIC] 1 tab PO QDAY Qty: 0 RF: 0 Disabled Parking Permit Qty: 1 RF: 0 ipratropium-albuterol 3 ML solution for nebulization 3 ml INH Q6HP PRNQty: 90 RF: 1 fluticasone propion-salmeterol [Advair Diskus] 500 MCG/50 MCG blister with device 1 puff INH BID Qty: 60 RF: 1 propranolol 20 MG tablet 20 mg PO BID Qty: 60 RF: 12 ibuprofen 800 mg tablet 800 mg PO DAILY RF: 0 Referrals: Mayda Mars PA-C [Primary Care Provider] -
--- NOTE | 2018-10-18 09:24 | ED_ITS ---
HPI - Female Genitourinary General Chief complaint: Urogenital-Female Stated complaint: bad pain in right side kidney area,nausea Time Seen by Provider: 10/18/18 09:15 Source: patient Mode of arrival: ambulatory Limitations: no limitations History of Present Illness HPI Narrative: Patient is a 43-year-old female with right flank pain. She said it started last night it comes and goes radiates to her abdomen. She has been feeling nauseated no vomiting. sHe says she has felt hot and cold at times. This is happened to her before when she has had UTI. However not been this bad. She denies any history of kidney stone Female Urogenital Radiation: R Flank Related Data Home Medications Medication Instructions Recorded Confirmed [PROBIOTIC] 1 tab PO QDAY #0 01/18/16 05/08/18 Proventil HFA 90 mcg See Rx Instructions .ROUTE .COMPLEX 03/05/18 05/08/18 cholecalciferol (vitamin D3) 5,000 5,000 unit PO DAILY 05/08/18 05/08/18 unit capsule ibuprofen 800 mg PO DAILY 10/18/18 10/18/18 Previous Rx's Medication Instructions Recorded Disabled Parking Permit dev #1 02/21/16 fluticasone propion-salmeterol 1 puff INH BID #60 dose 04/17/16 [Advair Diskus] ipratropium-albuterol 3 ml INH Q6HP PRN #90 ea 04/17/16 propranolol 20 mg PO BID #60 tab 07/17/16 chlorthalidone 25 mg tablet See Rx Instructions PO DAILY #30 03/05/18 tab fenofibrate 160 mg tablet 160 mg PO DAILY #30 tab 03/27/18 QUAD CANE #1 ea 05/08/18 spironolactone 25 mg tablet 25 mg PO DAILY #30 tab 05/08/18 tramadol 50 mg tablet 50 mg PO QID #40 tab 05/08/18 hydrocodone-acetaminophen [Cypress] 1 tab PO Q6H PRN #10 tab 10/18/18 Allergies Allergy/AdvReac Type Severity Reaction Status Date / Time latex Allergy Rash Verified 10/18/18 08:54 oxycodone [OXYCODONE] AdvReac Intermediate Irritabilit Verified 10/18/18 08:54 y Review of Systems Review of Systems ROS Unobtainable: All systems reviewed & are unremarkable except as noted in HPI and below Constitutional Reports body ache(s), Reports chills, Denies fever(s), Denies lethargy and Denies weakness Eyes Denies change in vision, Denies eye discharge, Denies irritation and Denies loss of vision ENT Ears, Nose, Mouth, and Throat: Denies change in voice, Denies neck pain and Denies sore throat Cardiovascular Denies chest pain, Denies irregular heart rhythm, Denies lightheadedness, Denies palpitations, Denies dyspnea, Denies dyspnea on exertion and Denies orthopnea Respiratory Denies cough, Denies dyspnea, Denies dyspnea on exertion and Denies wheezing Gastrointestinal Gastrointestinal: Denies abdominal pain, Denies diarrhea, Reports nausea and Denies vomiting Genitourinary Denies hematuria, Reports flank pain, Denies urinary incontinence and Denies urinary urgency Musculoskeletal Denies neck pain Integumentary/Breasts Denies pruritus, Denies erythema, Denies rash and Denies wounds Neurologic Denies loss of vision and Denies weakness Endocrine Denies palpitations Allergic/Immunologic Denies wheezing [facility] Medical History Hypertension (Chronic) Migraines (Chronic) Sleep apnea (Chronic) Ovarian cyst (Resolved 03/28/15) Pneumonia (Resolved 2008) Surgical History History of laparoscopic appendectomy (Resolved 03/28/15) History of ovarian cystectomy (Resolved) History of placement of ear tubes (Resolved) History of tonsillectomy (Resolved) Family History Father No problems noted. Mother No problems noted. Grandfather No problems noted. Grandmother No problems noted. Grandfather No problems noted. Grandmother No problems noted. Sister No problems noted. Social History Smoking Status: Former smoker Tobacco: How many years used: 17 second hand exposure: No alcohol intake: former (I only drank occasionally. I haven't had anything for over 10 years. ) Family History Father No problems noted. Mother No problems noted. Grandfather No problems noted. Grandmother No problems noted. Grandfather No problems noted. Grandmother No problems noted. Sister No problems noted. Social History Smoking Status: Former smoker Tobacco: How many years used: 17 second hand exposure: No alcohol intake: former (I only drank occasionally. I haven't had anything for over 10 years. ) Exam Initial Vital Signs Initial Vital Signs: Vital Signs Temperature 98.0 F 10/18/18 08:40 Pulse Rate 96 H 10/18/18 08:40 Respiratory Rate 24 10/18/18 08:40 Blood Pressure 142/98 H 10/18/18 08:40 Pulse Oximetry 94 10/18/18 08:40 GENERAL: Overweight female appears in pain appears in mild pain HEENT: Head atraumatic,EOMI, pupils reactive, face symmetric, CARDIOVASCULAR: Regular rate and rhythm without murmurs, rubs or gallops. RESPIRATORY: Breath sounds equal bilaterally, no wheezes rales or rhonchi. ABDOMEN: Soft, nontender. Normoactive bowel sounds all 4 quadrants. No guarding or rebound. : Right CVA tenderness EXTREMITIES: Normal range of motion, no clubbing or edema. Neurovascularly intact NEUROLOGICAL: Alert and oriented x4.Normal gait and speech. Cranial nerves II through XII grossly intact. SKIN: Warm, dry, no laceration, no petechiae, no rashes or lesions. Course Orders Ordered: ED Orders 10/18/18 10:35 Cancer Antigen 125 Stat Complete Blood Count AUTO DIFF Stat Comprehensive Metabolic Panel Stat Lipase Stat Discontinued Medications Ketorolac Tromethamine (Toradol) 30 mg IV NOW ONE Stop: 10/18/18 09:21 Last Admin: 10/18/18 10:43 Dose: 30 mg Morphine Sulfate (Morphine) 4 mg IV NOW ONE Stop: 10/18/18 12:07 Last Admin: 10/18/18 13:02 Dose: 4 mg Ondansetron HCl (Zofran) 4 mg IV NOW ONE Stop: 10/18/18 09:21 Last Admin: 10/18/18 10:43 Dose: 4 mg Vital Signs - 8 hr 10/18/18 12:30 10/18/18 13:51 Pulse Rate 78 74 Respiratory Rate 20 20 Blood Pressure [Left Wrist] 137/93 H 102/65 Pulse Oximetry 95 93 MDM - Female Genitourinary Lab Data Attestation: I reviewed the patient's lab results. Result diagrams: 10/18/18 10:35 10/18/18 10:35 Lab Results 10/18/18 10/18/18 10/18/18 Range/Units 09:25 10:35 10:35 WBC 10.4 (4.5-11.0) X10^3/uL RBC 4.98 (4.0-5.2) X10^6/uL Hgb 13.5 (12.0-16.0) g/dL Hct 40.9 (36-46) % MCV 82.0 (80-100) fL MCH 27.1 (26-34) PG MCHC 33.0 (30-36) % RDW 15.1 H (11.6-14.8) % Plt Count 241 (150-400) X10^3/uL Neut % (Auto) 74.5 (50-75) % Lymph % (Auto) 18.4 L (25-40) % [place] % (Auto) 5.2 (3-14) % Eos % (Auto) 1.0 L (2-4) % Baso % (Auto) 0.9 (0-2) % Neut # (Auto) 7800 H (6920-6164) /uL Lymph # (Auto) 1900 (2552-4853) /uL [place] # (Auto) 500 (0-900) /uL Eos # (Auto) 100 (0-450) /uL Baso # (Auto) 100 (0-100) /uL Sodium 142 (137-145) mmol/L Potassium 4.5 (3.4-5.1) mmol/L Chloride 103 (98-107) mmol/L Carbon Dioxide 28 (22-32) mmol/L BUN 14 (7-17) mg/dL Creatinine 0.70 (0.52-1.04) mg/dL Estimated GFR > 60.0 (>60) mL/min BUN/Creatinine Ratio 20.0 (6-22) Glucose 115 H (70-100) mg/dL Calcium 9.9 (8.4-10.2) mg/dL Total Bilirubin 0.9 (0.2-1.3) mg/dL AST 48 H (14-36) IU/L ALT 44 (9-52) IU/L Alkaline Phosphatase 53 (38-126) U/L Total Protein 8.1 (6.3-8.2) g/dL Albumin 4.5 (3.5-5.0) g/dL Globulin 3.6 (1.7-4.1) g/dL Albumin/Globulin Ratio 1.3 (1.0-2.8) Lipase 57 (23-300) U/L CA 125 Antigen (0-35) U/mL Urine RBC 5-10/hpf H (0-5/HPF) Urine WBC 10-30/hpf H (0-5/HPF) Ur Squamous Epith Cells 5-10 /hpf H (0-5/HPF) Amorphous Sediment 2+ Urine Bacteria Many (>30) H (None) Ur Culture Indicated? Cult not indicated 10/18/18 Range/Units 10:35 WBC (4.5-11.0) X10^3/uL RBC (4.0-5.2) X10^6/uL Hgb (12.0-16.0) g/dL Hct (36-46) % MCV (80-100) fL MCH (26-34) PG MCHC (30-36) % RDW (11.6-14.8) % Plt Count (150-400) X10^3/uL Neut % (Auto) (50-75) % Lymph % (Auto) (25-40) % [place] % (Auto) (3-14) % Eos % (Auto) (2-4) % Baso % (Auto) (0-2) % Neut # (Auto) (1817-6004) /uL Lymph # (Auto) (0188-9956) /uL [place] # (Auto) (0-900) /uL Eos # (Auto) (0-450) /uL Baso # (Auto) (0-100) /uL Sodium (137-145) mmol/L Potassium (3.4-5.1) mmol/L Chloride (98-107) mmol/L Carbon Dioxide (22-32) mmol/L BUN (7-17) mg/dL Creatinine (0.52-1.04) mg/dL Estimated GFR (>60) mL/min BUN/Creatinine Ratio (6-22) Glucose (70-100) mg/dL Calcium (8.4-10.2) mg/dL Total Bilirubin (0.2-1.3) mg/dL AST (14-36) IU/L ALT (9-52) IU/L Alkaline Phosphatase (38-126) U/L Total Protein (6.3-8.2) g/dL Albumin (3.5-5.0) g/dL Globulin (1.7-4.1) g/dL Albumin/Globulin Ratio (1.0-2.8) Lipase (23-300) U/L CA 125 Antigen 29 (0-35) U/mL Urine RBC (0-5/HPF) Urine WBC (0-5/HPF) Ur Squamous Epith Cells (0-5/HPF) Amorphous Sediment Urine Bacteria (None) Ur Culture Indicated? Point of Care Testing Test Results Negative Urine Dip Bedside Urine Glucose Negative Bedside Urine Bilirubin - Negative Bedside Urine Ketone - Negative Urine Specific [place] 1.020 Bedside Urine Occult Blood +++ Bedside Urine pH 6.0 Bedside Urine Protein +/- 15 Bedside Urine Urobilinogen - Negative Bedside Urine Nitrite - Negative Bedside Urine Leukocytes + [address] scan - abdomen: Radiologist's impression: PROCEDURE: CT KIDNEY URETER BLADDER (KUB) INDICATIONS: right flank pain TECHNIQUE: Noncontrast 5 mm thick sections acquired from the diaphragms to the symphysis. 5 mm thick coronal and sagittal reformats were then performed. For radiation dose reduction, the following was used: automated exposure control, adjustment of mA and/or kV according to patient size. COMPARISON: [facility], CT, KIDNEY/ URETER/BLADDER, 03/27/2015, 22:48. FINDINGS: Image quality: Excellent. Lung bases: There is a left lower lobe pulmonary nodule measuring up to 6 mm on series 5 image 12 which appears stable from the prior study. Linear scarring is redemonstrated in the left base. Heart size is normal. Urinary system: There is high density within the right renal collecting system consistent with multiple nonobstructing stones including calcifications in the renal pelvis. The largest aggregate calcifications measure up to 1.3 cm within an inferior pole calyx. There is perinephric stranding without hydronephrosis. There is also mild right periureteral fat stranding without abnormal dilatation. Left kidney demonstra marivel no left renal stones or hydronephrosis. Left ureter is normal caliber. The urinary bladder is partially distended. No calcified bladder stones. No bladder wall thickening. Other solid organs: There is hypoattenuation of the liver compatible with fatty infiltration with relative sparing along the gallbladder fossa. The gallbladder demonstrates a small dependent stones measuring up to 0.6 cm without wall thickening or pericholecystic fluid. Pancreas is normal in contours. Spleen is normal in size. No adrenal nodules. Peritoneum and bowel: Unenhanced bowel loops demonstrate normal wall thickness and caliber. No free fluid or air. There is a large cystic mass measuring up to 30.2 x 18.2 x 17.1 cm in the lower abdomen and pelvis with thick internal septations. This appears increased in size from the prior study. The mass likely originates from the left adnexa. There is a 2nd cystic septated mass which appears to originate from the right adnexa measuring up to approximately 8.4 x 8.5 x 9.8 cm. This abuts the larger mass. Nodes and vessels: No retroperitoneal or mesenteric adenopathy by size criteria. Aorta and inferior vena cava are normal in caliber. Abdominal wall: No ventral hernias. Pelvis: No free pelvic fluid. No inguinal hernias or adenopathy. Bones: No suspicious bony lesions. No vertebral body compression fractures. IMPRESSION: 1. Right nephrolithiasis without evidence of obstructive uropathy. Nonspecific right perinephric and perirenal stranding is demonstrated which may reflect sequelae of a recently passed stone or possibly a urinary tract infection. Recommend correlation with urinalysis. 2. Large septated cystic masses within the lower abdomen and pelvis likely originating from bilateral adnexa, with the largest on the left measuring up to 30.2 cm. 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 Findings were discussed with Dr. Bridges on 10/18/18 at 10:20 AM. Dictated by: Carlos Miles M.D. on 10/18/2018 at 10:13 MDM Narrative Medical decision making narrative: Dr. Gonzalez- get CA 125 due to obesity would be better if went to [facility] in [place] 125 is negative for chills at axilla reassuring. Ari reddy agrees with out patient follow up. I called to schedule , but there given patient's information they will call to schedule her. Images have been pushed to [place] patient is also given a copy of labs and disc. The patient does have kidney stones she likely just passed a kidney stone as well. I believe this to actually be causing her acute pain and a large cyst with found incidentally. This is unlikely to be emergent, and unlikely to be causing her pain. Patient states they are hesitant to remove her left ovary for fear of putting her into menopause. Overall her pain is improved with Toradol but it started to come back and she did get a dose of morphine. Discharge Plan Departure Patient Disposition: Home Clinical Impression: Kidney stones Ovarian cyst Qualifiers: Laterality: unspecified laterality Qualified Code(s): N83.209 - Unspecified ovarian cyst, unspecified side Discharge Date/Time: 10/18/18 13:51 Interventions: ED Discharge Assessment Last Done: 10/18/18 13:51 Instructions: DI for Kidney Stones, DI for Ovarian Cyst Activity Restrictions/Additional Instructions: *You have been diagnosed with ovarian cyst, kidney stone *What to do: It will need surgery on year ovarian cyst. [facility] should call you to scheduled follow-up yadi ointment *Continue to take medications as directed Cypress 1 tablet every 6 hours as needed for severe pain *Follow up with your primary care provider in 2-3 days Call [phone], if you do not hear from them by Sunday afternoon *Return to ER if you should have increasing pain persistent vomiting or any new, worsening or concerning symptoms Prescriptions: New hydrocodone-acetaminophen [Cypress] 5-325 mg tablet 1 tab PO Q6H PRN (Reason: pain) Qty: 10 RF: 0 No Action Proventil HFA 90 mcg See Patient Comments .ROUTE .COMPLEX RF: 0 chlorthalidone 25 mg tablet See Rx Instructions PO DAILY Qty: 30 RF: 1 fenofibrate 160 mg tablet 160 mg PO DAILY Qty: 30 RF: 6 cholecalciferol (vitamin D3) 5,000 unit capsule 5,000 unit PO DAILY RF: 0 tramadol 50 mg tablet 50 mg PO QID Qty: 40 RF: 0 QUAD CANE Qty: 1 RF: 0 spironolactone 25 mg tablet 25 mg PO DAILY Qty: 30 RF: 1 [PROBIOTIC] 1 tab PO QDAY Qty: 0 RF: 0 Disabled Parking Permit Qty: 1 RF: 0 ipratropium-albuterol 3 ML solution for nebulization 3 ml INH Q6HP PRNQty: 90 RF: 1 fluticasone propion-salmeterol [Advair Diskus] 500 MCG/50 MCG blister with device 1 puff INH BID Qty: 60 RF: 1 propranolol 20 MG tablet 20 mg PO BID Qty: 60 RF: 12 ibuprofen 800 mg tablet 800 mg PO DAILY RF: 0 Referrals: Mayda Mars PA-C [Primary Care Provider] -
[2018-10-18 10:04] LABS: Amorphous Sediment Urine 2+; Bacteria Urine Many (>30); Culture Indicated Urine Cult Not Indicated; RBC Urine 5-10/HPF (0-5/HPF); Squamous Epithelial Cell Urine 5-10 /HPF (0-5/HPF); WBC Urine 10-30/HPF (0-5/HPF)
--- NOTE | 2018-10-18 10:27 | PC.NURSE ---
Attempts x2 for IV, unsuccessful
[2018-10-18 10:42] VITALS: BP 135/103; PULSE 72; RESP 14; O2SAT 94
[2018-10-18] MEDS: KETOROLAC 60 MG/2 ML VIAL 30 MG IV (10:43)
[2018-10-18] MEDS: ONDANSETRON 4 MG/2 ML INJ IV (10:43)
[2018-10-18 10:45] LABS: Add Manual Diff / Slide Review NO; Basophils Absolute Auto 100 /uL (0-100); Basophils Percent Auto 0.9 % (0-2); Eosinophils Absolute Auto 100 /uL (0-450); Hematocrit 40.9 % (36-46); Hemoglobin 13.5 g/dL (12.0-16.0); Lymphocytes Absolute Auto 1900 /uL (1100-4500); Lymphocytes Percent Auto 18.4 % (25-40); Mean Corpuscular Hemoglobin 27.1 PG (26-34); Monocytes Absolute Auto 500 /uL (0-900); Monocytes Percent Auto 5.2 % (3-14); Neutrophils Absolute Auto 7800 /uL (1500-7000); Neutrophils Percent Auto 74.5 % (50-75); Platelet Count 241 X10^3/uL (150-400); Red Blood Cell Count 4.98 X10^6/uL (4.0-5.2); Red Cell Distribution Width 15.1 % (11.6-14.8); White Blood Cell Count 10.4 X10^3/uL (4.5-11.0)
--- NOTE | 2018-10-18 10:54 | PC.NURSE ---
to room 3 as she is not comfortable on stretcher r/t body habitus. Very comfortable in recliner. continues to take sips po fluids.
[2018-10-18 10:58] LABS: Potassium 4.5 mmol/L (3.4-5.1)
[2018-10-18 10:59] LABS: Alanine Aminotransferase 44 IU/L (9-52); Albumin 4.5 g/dL (3.5-5.0); Albumin Globulin Ratio 1.3 (1.0-2.8); Alkaline Phosphatase 53 U/L (38-126); Aspartate Aminotransferase 48 IU/L (14-36); Bilirubin Total 0.9 mg/dL (0.2-1.3); Blood Urea Nitrogen 14 mg/dL (7-17); Calcium 9.9 mg/dL (8.4-10.2); Carbon Dioxide 28 mmol/L (22-32); Chloride 103 mmol/L (98-107); Estimated Glomerular Filt Rate > 60.0 mL/min (>60); Globulin 3.6 g/dL (1.7-4.1); Glucose 115 mg/dL (70-100); HEMOLYSIS 45 (0-50); Lipase 57 U/L (23-300); Sodium 142 mmol/L (137-145); Total Protein 8.1 g/dL (6.3-8.2)
[2018-10-18 11:29] LABS: Cancer Antigen 125 29 U/mL (0-35)
[2018-10-18 12:30] VITALS: BP 137/93; PULSE 78; RESP 20; O2SAT 95
[2018-10-18] MEDS: MORPHINE 4 MG/ML INJ IV (13:02)
[2018-10-18 13:51] VITALS: BP 102/65; PULSE 74; RESP 20; O2SAT 93
== END 2018-10-18 13:51 | disposition home or self-care (01) ==
PROVIDERS: Emergency Provider Emergency Medicine; PCP Physician Assistant
DX: N20.0 Calculus of kidney (principal); N83.209 Unspecified ovarian cyst, unspecified side
CPT/HCPCS: 36591; 74176; 80053; 81003; 81015; 81025; 83690; 85025; 86304; 96374; 96375; 99283; 99284; J1885; J2270; J2405

== ENCOUNTER 2018-12-29 17:22 | Emergency (ER) | payer MEDICARE, MEDICAID, SELFPAY ==
[2018-12-29 18:20] VITALS: BP 150/87; PULSE 72; RESP 24; TEMP 36.5; O2SAT 96; BMI 74.2
--- NOTE | 2018-12-29 18:22 | PC.NURSE ---
Attempts x2 for IV start. Un successful
--- NOTE | 2018-12-29 18:36 | ED_ITS ---
HPI - Abdominal Pain General Chief Complaint: Abdominal Pain Stated Complaint: severe nausea and extreme pain on rt side and stom Time Seen by Provider: 12/29/18 18:19 Source: patient Mode of arrival: ambulatory Limitations: no limitations History of Present Illness HPI narrative: Patient comes emergency department complaining of right-sided abdominal pain that started last night. Patient states she has been nauseated and has nearly vomited, but has had only dry heaves. Patient denies any left- sided pain. She denies any dysuria or hematuria. No diarrhea or constipation. No cough, chest pain, or shortness of breath. No fevers. Patient states she has a history of kidney stones, but this does not feel like that. Patient states that her father may have had some gallbladder issues, and also had pancreatitis, but she is not sure if the father had his gallbladder removed. Patient denies any sick contacts. No other complaints at this time. The patient has a distant history of ulcers. Related Data Home Medications Medication Instructions Recorded Confirmed [PROBIOTIC] 1 tab PO QDAY #0 01/18/16 05/08/18 Proventil HFA 90 mcg See Rx Instructions .ROUTE .COMPLEX 03/05/18 05/08/18 cholecalciferol (vitamin D3) 5,000 5,000 unit PO DAILY 05/08/18 05/08/18 unit capsule ibuprofen 800 mg PO DAILY 10/18/18 10/18/18 Previous Rx's Medication Instructions Recorded Disabled Parking Permit dev #1 02/21/16 fluticasone propion-salmeterol 1 puff INH BID #60 dose 04/17/16 [Advair Diskus] ipratropium-albuterol 3 ml INH Q6HP PRN #90 ea 04/17/16 propranolol 20 mg PO BID #60 tab 07/17/16 chlorthalidone 25 mg tablet See Rx Instructions PO DAILY #30 03/05/18 tab fenofibrate 160 mg tablet 160 mg PO DAILY #30 tab 03/27/18 QUAD CANE #1 ea 05/08/18 spironolactone 25 mg tablet 25 mg PO DAILY #30 tab 05/08/18 tramadol 50 mg tablet 50 mg PO QID #40 tab 05/08/18 hydrocodone-acetaminophen [[place]] 1 tab PO Q6H PRN #10 tab 10/18/18 ondansetron HCl 8 mg tablet 8 mg PO TID PRN #30 tab 10/21/18 ondansetron 4 mg PO Q6H PRN #10 tab 12/29/18 Allergies Allergy/AdvReac Type Severity Reaction Status Date / Time latex Allergy Rash Verified 12/29/18 18:19 oxycodone [OXYCODONE] AdvReac Intermediate Irritabilit Verified 12/29/18 18:19 y Review of Systems Review of Systems ROS Unobtainable: All systems reviewed & are unremarkable except as noted in HPI and below Constitutional Constitutional: Denies chills, Denies fatigue, Denies fever(s), Denies frequent falls, Denies lethargy and Denies weakness Eyes Eyes: Denies change in vision, Denies eye discharge, Denies irritation and Denies loss of vision ENT Ears, Nose, Mouth, and Throat: Denies change in voice, Denies dizziness, Denies neck pain, Denies sore throat and Denies throat swelling Cardiovascular Cardiovascular: Denies chest pain, Denies irregular heart rhythm, Denies lightheadedness, Denies palpitations, Denies dyspnea, Denies dyspnea on exertion and Denies orthopnea Respiratory Respiratory: Denies cough, Denies dyspnea, Denies dyspnea on exertion and Denies wheezing Gastrointestinal Gastrointestinal: Reports abdominal pain, Denies change in bowel habits, Denies diarrhea, Reports nausea and Denies vomiting Genitourinary Genitourinary: Denies hematuria, Denies flank pain, Denies urinary incontinence and Denies urinary urgency Musculoskeletal Musculoskeletal: Denies back pain, Denies muscle weakness, Denies neck pain, Denies numbness and Denies tingling Integumentary/Breasts Skin/Breast: Denies pruritus, Denies erythema, Denies rash and Denies wounds Neurologic Neurologic: Denies behavioral changes, Denies confusion, Denies dizziness, Denies frequent falls, Denies loss of vision, Denies numbness, Denies tingling and Denies weakness Psychiatric Psychiatric: Denies anxiety, Denies behavioral changes, Denies confusion, Denies depression, Denies homicidal ideation and Denies suicidal ideation Endocrine Endocrine: Denies fatigue, Denies flushing and Denies palpitations Hematologic/Lymphatic Hematologic/Lymphatic: Denies easy bruising Allergic/Immunologic Allergic/Immunologic: Denies urticaria, Denies throat swelling and Denies wh eezing [facility] Medical History Hypertension (Chronic) Migraines (Chronic) Ovarian cyst (Resolved 03/28/15) Pneumonia (Resolved 2008) Sleep apnea (Chronic) Surgical History History of laparoscopic appendectomy (Resolved 03/28/15) History of ovarian cystectomy (Resolved) History of placement of ear tubes (Resolved) History of tonsillectomy (Resolved) Family History Father No problems noted. Mother No problems noted. Grandfather No problems noted. Grandmother No problems noted. Grandfather No problems noted. Grandmother No problems noted. Sister No problems noted. Social History Smoking Status: Former smoker Tobacco: How many years used: 17 second hand exposure: No alcohol intake: former (I only drank occasionally. I haven't had anything for over 10 years. ) Family History Father No problems noted. Mother No problems noted. Grandfather No problems noted. Grandmother No problems noted. Grandfather No problems noted. Grandmother No problems noted. Sister No problems noted. Social History Smoking Status: Former smoker Tobacco: How many years used: 17 second hand exposure: No alcohol intake: former (I only drank occasionally. I haven't had anything for over 10 years. ) Exam Initial Vital Signs Initial Vital Signs: Vital Signs Temperature 97.7 F 12/29/18 18:20 Pulse Rate 72 12/29/18 18:20 Respiratory Rate 24 12/29/18 18:20 Blood Pressure 150/87 H 12/29/18 18:20 Pulse Oximetry 96 12/29/18 18:20 Const General: cooperative and well developed Nutritional Appearance: well nourished Orientation: alert, awake, oriented x3 and not confused Other: Patient appears moderately uncomfortable. HENMT Head: normocephalic and atraumatic Ears: external ears normal and TM's normal bilaterally Nose: external nose normal and No nasal discharge Face and sinus: sinuses nontender, face symmetric, no sinus tenderness and No dry mucous membranes Mouth: oral mucosae normal and moist mucous membranes Teeth and gingiva: dentition normal Throat: tonsils normal and uvula midline Eyes General: appearance normal, both eyes and all related structures Eyelids: eyelids normal Conjunctivae: conjunctivae normal Sclera: sclerae normal Pupils: PERRL EOM: EOM intact bilaterally Neck Neck: normal visual inspection, trachea midline, No lymphadenopathy, No midline deformity and No JVD Lymphatic: No lymphedema Chest Chest: normal inspection of the chest Resp Effort & Inspection: normal respiratory effort, able to speak in complete sentences, no respiratory distress and no use of accessory muscles Auscultation: clear to auscultation bilaterally, no rales, no rhonchi and no wheezes Cardio Rate: regular rate Rhythm: regular rhythm Heart Sounds: no click, no gallops, no murmurs and no rubs Pulses: normal peripheral pulses GI Inspection: non-distended, large pannus and obesity (Severe) Palpation: soft, no hepatosplenomegaly, No guarding, No pulsatile mass and tender (Moderate, right upper quadrant) Auscultation: normal bowel sounds Back/Spine/Pelvis Back: No CVA tenderness Cervical Spine: cervical ROM normal and No pain with cervical ROM Thoracic/Lumbar Spine: thoracic and lumbar spine normal to inspection Skin General: no rashes or lesions noted, No jaundice and No petechiae Neuro General: alert, oriented x3, gait normal and no focal motor deficits Speech: speech normal Extrem General: full ROM, no clubbing, cyanosis or edema, no pedal edema and no calf tenderness Psych Appearance: well kempt Mental Status: mental status grossly normal Attitude: cooperative Thought Content: normal and suicidality Judgment: judgment good Course Course Course Narrative: Patient was worked up with labs, and treated symptomatically with Zofran, Toradol, and Dilaudid. She was also worked up with abdominal ultrasound. Workup was unremarkable. Patient was found to be feeling better after symptomatic intervention. She has already had multiple CT scans, and I did not feel that further CT scans would be helpful or theodore. We have discussed home management of symptoms, as well as the usual indications for return. Orders Ordered: Discontinued Medications Hydromorphone HCl (Dilaudid) 1 mg IV NOW ONE Stop: 12/29/18 18:36 Last Admin: 12/29/18 19:43 Dose: 1 mg Documented by: KAHLIL Hydromorphone HCl (Dilaudid) 1 mg IV NOW ONE Stop: 12/29/18 20:04 Last Admin: 12/29/18 20:10 Dose: 1 mg Documented by: KAHLIL Sodium Chloride (Normal Saline 0.9%) 1,000 mls @ 1,000 mls/hr IV BOLUS ONE Stop: 12/29/18 21:01 Last Infusion: 12/29/18 21:03 Dose: 0 mls/hr Documented by: Admin: 12/29/18 20:10 Dose: 1,000 mls/hr Documented by: KAHLIL Ondansetron HCl (Zofran) 4 mg IV NOW ONE Stop: 12/29/18 18:36 Last Admin: 12/29/18 19:44 Dose: 4 mg Documented by: KAHLIL Vital Signs Vital signs: Vital Signs - 8 hr 12/29/18 18:20 Temperature 97.7 F Pulse Rate 72 Respiratory Rate 24 Blood Pressure 150/87 H Pulse Oximetry 96 MDM - Abdominal Pain Medical Records Attestation: I reviewed the patient's medical records. Lab Data Attestation: I reviewed the patient's lab results. Result diagrams: 12/29/18 19:15 12/29/18 19:15 Labs: Lab Results 12/29/18 12/29/18 Range/Units 19:15 19:15 WBC 11.2 H (4.5-11.0) X10^3/uL RBC 4.68 (4.0-5.2) X10^6/uL Hgb 12.5 (12.0-16.0) g/dL Hct 38.3 (36-46) % MCV 81.7 (80-100) fL MCH 26.8 (26-34) PG MCHC 32.8 (30-36) % RDW 15.5 H (11.6-14.8) % Plt Count 214 (150-400) X10^3/uL Neut % (Auto) 77.0 H (50-75) % Lymph % (Auto) 15.0 L (25-40) % [place] % (Auto) 6.4 (3-14) % Eos % (Auto) 0.6 L (2-4) % Baso % (Auto) 1.0 (0-2) % Neut # (Auto) 8600 H (4013-8014) /uL Lymph # (Auto) 1700 (5132-0825) /uL [place] # (Auto) 700 (0-900) /uL Eos # (Auto) 100 (0-450) /uL Baso # (Auto) 100 (0-100) /uL Sodium 140 (137-145) mmol/L Potassium 4.3 (3.4-5.1) mmol/L Chloride 104 (98-107) mmol/L Carbon Dioxide 25 (22-32) mmol/L BUN 12 (7-17) mg/dL Creatinine 0.70 (0.52-1.04) mg/dL Estimated GFR > 60.0 (>60) mL/min BUN/Creatinine Ratio 17.1 (6-22) Glucose 110 H (70-100) mg/dL Calcium 9.2 (8.4-10.2) mg/dL Total Bilirubin 0.7 (0.2-1.3) mg/dL AST 38 H (14-36) IU/L ALT 38 (9-52) IU/L Alkaline Phosphatase 49 (38-126) U/L Total Protein 6.9 (6.3-8.2) g/dL Albumin 4.0 (3.5-5.0) g/dL Globulin 2.9 (1.7-4.1) g/dL Albumin/Globulin Ratio 1.4 (1.0-2.8) Lipase 67 (23-300) U/L Imaging Data US - abdomen: Radiologist's impression: PROCEDURE: US ABDOMEN LIMITED INDICATIONS: RIGHT UPPER QUADRANT PAIN TECHNIQUE: Real-time scanning was performed of the abdominal and retroperitoneal organs, with image documentation. COMPARISON: [facility], CT, CT KIDNEY URETER BLADDER (KUB), 10/18/2018, 9:57. FINDINGS: Liver: The liver is enlarged with steatosis. Gallbladder: Gallbladder is unremarkable. Wall thickness is within normal limits measuring 2 mm. Biliary ducts: Intrahepatic bile ducts are non-dilated. Extrahepatic bile duct caliber measures 7.1 mm. Normal is 6-7 mm or less in diameter, or 10 mm or less post-cholecystectomy. Pancreas: Visualized portions of the pancreas are sonographically normal. Spleen: Spleen is normal in size and homogeneous in echotexture. Kidneys: Kidneys are normal in size and echotexture. Right kidney measures 13.5 cm long. Multiple stones are identified without obstruction. IMPRESSION: 1. Hepatomegaly steatosis. 2. Gallbladder is unremarkable. 3. Persistent appearance of right renal calcifications without obstruction. Dictated by: Christine Spain M.D. on 12/29/2018 at 21:14 Approved by: Christine Spain M.D. on 12/29/2018 at 21:15 Discharge Plan Departure Patient Disposition: Home Clinical Impression: Nausea Abdominal pain Qualifiers: Abdominal location: right upper quadrant Qualified Code(s): R10.11 - Right upper quadrant pain Discharge Date/Time: 12/29/18 21:04 Instructions: DI for Abdominal Pain-Adult Activity Restrictions/Additional Instructions: Your labs and ultrasound look good. There is no evidence of gallbladder stones or of pancreatitis. You have some infiltration of fat anterior liver, which is related to your obesity. This has caused a very slight elevation of one of your liver enzymes. This is a reversible condition with weight loss. You most likely have a viral syndrome that is causing your nausea and abdominal pain. There is no evidence of a more serious condition. The should blow over on its own in the next few days. Please take the medication prescribed, as needed for symptoms. Please follow up with your primary care physician if symptoms are not improved in the next 3 days. Prescriptions: New ondansetron 4 mg tablet,disintegrating 4 mg PO Q6H PRN (Reason: nausea and vomiting) Qty: 10 RF: 0 No Action Proventil HFA 90 mcg See Rx Instructions .ROUTE .COMPLEX RF: 0 chlorthalidone 25 mg tablet See Rx Instructions PO DAILY Qty: 30 RF: 1 fenofibrate 160 mg tablet 160 mg PO DAILY Qty: 30 RF: 6 cholecalciferol (vitamin D3) 5,000 unit capsule 5,000 unit PO DAILY RF: 0 tramadol 50 mg tablet 50 mg PO QID Qty: 40 RF: 0 (DME) QUAD CANE Qty: 1 RF: 0 spironolactone 25 mg tablet 25 mg PO DAILY Qty: 30 RF: 1 [PROBIOTIC] 1 tab PO QDAY Qty: 0 RF: 0 Disabled Parking Permit Qty: 1 RF: 0 ipratropium-albuterol 3 ML solution for nebulization 3 ml INH Q6HP PRNQty: 90 RF: 1 fluticasone propion-salmeterol [Advair Diskus] 500 MCG/50 MCG blister with device 1 puff INH BID Qty: 60 RF: 1 propranolol 20 MG tablet 20 mg PO BID Qty: 60 RF: 12 ondansetron HCl 8 mg tablet 8 mg PO TID PRN (Reason: nausea and vomiting) Qty: 30 RF: 1 ibuprofen 800 mg tablet 800 mg PO DAILY RF: 0 hydrocodone-acetaminophen [[place]] 5-325 mg tablet 1 tab PO Q6H PRN (Reason: pain) Qty: 10 RF: 0 Referrals: Mayda Mars PA-C [Primary Care Provider] -
--- NOTE | 2018-12-29 18:51 | PC.NURSE ---
attempt by another RN for IV start. Unsuccessful
--- NOTE | 2018-12-29 19:18 | DI.US.S_ITS ---
PROCEDURE: US ABDOMEN LIMITED INDICATIONS: RIGHT UPPER QUADRANT PAIN TECHNIQUE: Real-time scanning was performed of the abdominal and retroperitoneal organs, with image documentation. COMPARISON: [facility], CT, CT KIDNEY URETER BLADDER (KUB), 10/18/2018, 9:57. FINDINGS: Liver: The liver is enlarged with steatosis. Gallbladder: Gallbladder is unremarkable. Wall thickness is within normal limits measuring 2 mm. Biliary ducts: Intrahepatic bile ducts are non-dilated. Extrahepatic bile duct caliber measures 7.1 mm. Normal is 6-7 mm or less in diameter, or 10 mm or less post-cholecystectomy. Pancreas: Visualized portions of the pancreas are sonographically normal. Spleen: Spleen is normal in size and homogeneous in echotexture. Kidneys: Kidneys are normal in size and echotexture. Right kidney measures 13.5 cm long. Multiple stones are identified without obstruction. IMPRESSION: 1. Hepatomegaly steatosis. 2. Gallbladder is unremarkable. 3. Persistent appearance of right renal calcifications without obstruction. Dictated by: Christine Spain M.D. on 12/29/2018 at 21:14 Approved by: Christine Spain M.D. on 12/29/2018 at 21:15
[2018-12-29 19:33] LABS: Add Manual Diff / Slide Review NO; Basophils Absolute Auto 100 /uL (0-100); Eosinophils Absolute Auto 100 /uL (0-450); Eosinophils Percent Auto 0.6 % (2-4); Hematocrit 38.3 % (36-46); Hemoglobin 12.5 g/dL (12.0-16.0); Lymphocytes Absolute Auto 1700 /uL (1100-4500); Mean Corpuscular HGB Conc 32.8 % (30-36); Mean Corpuscular Hemoglobin 26.8 PG (26-34); Mean Corpuscular Volume 81.7 fL (80-100); Monocytes Absolute Auto 700 /uL (0-900); Monocytes Percent Auto 6.4 % (3-14); Neutrophils Absolute Auto 8600 /uL (1500-7000); Platelet Count 214 X10^3/uL (150-400); Red Blood Cell Count 4.68 X10^6/uL (4.0-5.2); Red Cell Distribution Width 15.5 % (11.6-14.8); White Blood Cell Count 11.2 X10^3/uL (4.5-11.0)
[2018-12-29] MEDS: HYDROMORPHONE 1 MG INJ IV ×2 (19:43→20:10)
[2018-12-29] MEDS: ONDANSETRON 4 MG/2 ML INJ IV (19:44)
[2018-12-29 19:48] LABS: Sodium 140 mmol/L (137-145)
[2018-12-29 19:51] LABS: Alanine Aminotransferase 38 IU/L (9-52); Albumin Globulin Ratio 1.4 (1.0-2.8); Alkaline Phosphatase 49 U/L (38-126); Aspartate Aminotransferase 38 IU/L (14-36); BUN Creatinine Ratio 17.1 (6-22); Bilirubin Total 0.7 mg/dL (0.2-1.3); Blood Urea Nitrogen 12 mg/dL (7-17); Calcium 9.2 mg/dL (8.4-10.2); Carbon Dioxide 25 mmol/L (22-32); Chloride 104 mmol/L (98-107); Estimated Glomerular Filt Rate > 60.0 mL/min (>60); Globulin 2.9 g/dL (1.7-4.1); Glucose 110 mg/dL (70-100); HEMOLYSIS 26 (0-50); Lipase 67 U/L (23-300); Potassium 4.3 mmol/L (3.4-5.1); Total Protein 6.9 g/dL (6.3-8.2)
[2018-12-29 20:06] VITALS: BP 142/62; PULSE 73; RESP 18; O2SAT 93
[2018-12-29] MEDS: SODIUM CHLORIDE 0.9% 1,000 ML 1000 ML IV (20:10)
[2018-12-29 21:04] VITALS: BP 138/52; PULSE 71; RESP 17; O2SAT 97
== END 2018-12-29 21:04 | disposition home or self-care (01) ==
PROVIDERS: Emergency Provider Emergency Medicine; PCP Physician Assistant
DX: R10.11 Right upper quadrant pain (principal); R11.0 Nausea
CPT/HCPCS: 36591; 76705; 80053; 83690; 85025; 96361; 96374; 96375; 96376; 99283; 99284; J1170; J2405

== ENCOUNTER 2019-02-06 09:30 | Emergency (ER) | payer MEDICARE, MEDICAID, OTHER, SELFPAY ==
[2019-02-06] VITALS (7 sets, daily range): BP systolic 126–142; BP diastolic 71–119; PULSE 90–135; RESP 17–24; O2SAT 92–96; BMI 74.0
--- NOTE | 2019-02-06 09:53 | ED_ITS ---
HPI - SOB/Dyspnea General Chief Complaint: Shortness of Breath/Dyspnea Stated Complaint: cp/shortness of breath x2day Time Seen by Provider: 02/06/19 09:32 Source: patient Mode of arrival: Wheelchair Limitations: no limitations History of Present Illness HPI Narrative: 43-year-old female nonsmoker with history of morbid obesity chronic bilateral lower extremity edema presents with a chief complaint of 2 days of worsening shortness of breath and pleuritic chest pain. She complains of a sharp and stabbing anterior chest pain with radiation to her back that is worse with a deep breath and palpation. She is more short of breath with exertion and with lying flat. She denies much in the way of cough. She has no fever, chills nor nausea or vomiting. She denies recent travel, injury or surgery. She denies any history of blood clot the use of exogenous estrogens but does states that because of her lower extremity edema she often does not move around much MD Complaint: shortness of breath and chest pain Onset (ago): day(s) Severity: moderate Consistency/Duration: constant Relieving factors: rest Exacerbating factors: lying flat and exertion Associated symptoms: chest pain and pain with inspiration Treatment prior to arrival: none Related Data Home oxygen amount: none Home Medications Medication Instructions Recorded Confirmed Probiotic 1 tab PO DAILY #0 01/18/16 02/06/19 Proventil HFA 90 mcg See Rx Instructions .ROUTE .COMPLEX 03/05/18 02/06/19 cholecalciferol (vitamin D3) 5,000 5,000 unit PO DAILY 05/08/18 02/06/19 unit capsule ibuprofen 800 mg PO DAILY 10/18/18 02/06/19 Disabled Parking Permit 1 dev MISCELLANEOUS DIRECTED 02/06/19 02/06/19 albuterol sulfate [Ventolin HFA] 2 puff INHALATION Q4-6H PRN 02/06/19 02/06/19 Previous Rx's Medication Instructions Recorded fluticasone propion-salmeterol 1 puff INH BID #60 dose 04/17/16 [Advair Diskus] ipratropium-albuterol 3 ml INH Q6HP PRN #90 ea 04/17/16 propranolol 20 mg PO BID #60 tab 07/17/16 chlorthalidone 25 mg tablet See Rx Instructions PO DAILY #30 03/05/18 tab fenofibrate 160 mg tablet 160 mg PO DAILY #30 tab 03/27/18 QUAD CANE #1 ea 05/08/18 spironolactone 25 mg tablet 25 mg PO DAILY #30 tab 05/08/18 tramadol 50 mg tablet 50 mg PO QID #40 tab 05/08/18 hydrocodone-acetaminophen [[place]] 1 tab PO Q6H PRN #10 tab 10/18/18 ondansetron HCl 8 mg tablet 8 mg PO TID PRN #30 tab 10/21/18 ondansetron 4 mg PO Q6H PRN #10 tab 12/29/18 Allergies Allergy/AdvReac Type Severity Reaction Status Date / Time latex Allergy Rash Verified 12/29/18 18:19 oxycodone [OXYCODONE] AdvReac Intermediate Irritabilit Verified 12/29/18 18:19 y Review of Systems Constitutional Constitutional: Denies chills, Denies fatigue, Denies fever(s), Denies frequent falls, Denies lethargy and Denies weakness Eyes Eyes: Denies change in vision, Denies eye discharge, Denies irritation and Denies loss of vision ENT Ears, Nose, Mouth, and Throat: Denies change in voice, Denies dizziness, Denies neck pain, Denies sore throat and Denies throat swelling Cardiovascular Cardiovascular: Reports chest pain, Denies irregular heart rhythm, Denies lightheadedness, Denies palpitations, Reports dyspnea, Reports dyspnea on exertion and Reports orthopnea Respiratory Respiratory: Reports dyspnea, Reports dyspnea on exertion and Denies wheezing Gastrointestinal Gastrointestinal: Denies abdominal pain, Denies change in bowel habits, Denies diarrhea, Denies nausea and Denies vomiting Genitourinary Genitourinary: Denies hematuria, Denies flank pain, Denies urinary incontinence and Denies urinary urgency Musculoskeletal Musculoskeletal: Denies back pain, Denies muscle weakness, Denies neck pain, Denies numbness and Denies tingling Integumentary/Breasts Skin/Breast: Denies pruritus, Denies erythema, Denies rash and Denies wounds Neurologic Neurologic: Denies behavioral changes, Denies confusion, Denies dizziness, Denies frequent falls, Denies loss of vision, Denies numbness, Denies tingling and Denies weakness Psychiatric Psychiatric: Denies anxiety, Denies behavioral changes, Denies confusion, Denies depression, Denies homicidal ideation and Denies suicidal ideation Endocrine Endocrine: Denies fatigue, Denies flushing and Denies palpitations Hematologic/Lymphatic Hematologic/Lymphatic: Denies easy bruising Allergic/Immunologic Allergic/Immunologic: Denies urticaria, Denies throat swelling and Denies wheezing [facility] Medical History Hypertension (Chronic) Migraines (Chronic) Ovarian cyst (Resolved 03/28/15) Pneumonia (Resolved 2008) Sleep apnea (Chronic) Surgical History History of laparoscopic appendectomy (Resolved 03/28/15) History of ovarian cystectomy (Resolved) History of placement of ear tubes (Resolved) History of tonsillectomy (Resolved) Family History Father No problems noted. Mother No problems noted. Grandfather No problems noted. Grandmother No problems noted. Grandfather No problems noted. Grandmother No problems noted. Sister No problems noted. Social History Smoking Status: Former smoker Tobacco: How many years used: 17 second hand exposure: No alcohol intake: former (I only drank occasionally. I haven't had anything for over 10 years. ) Family History Father No problems noted. Mother No problems noted. Grandfather No problems noted. Grandmother No problems noted. Grandfather No problems noted. Grandmother No problems noted. Sister No problems noted. Social History Smoking Status: Former smoker Tobacco: How many years used: 17 second hand exposure: No alcohol intake: former (I only drank occasionally. I haven't had anything for over 10 years. ) Exam Narrative Exam Narrative: GENERAL: [43] year old patient appears stated age. Morbidly obese, obviously uncomfortable, in distress with increased work of breathing, anxious HEAD: Atraumatic. Normocephalic. EYES: Pupils equal round and reactive. Extraocular motions intact. No scleral ic terus. No injection or drainage. ENT: Nose without bleeding, purulent drainage. Throat without erythema, tonsillar hypertrophy or exudate. Airway patent. NECK: Trachea midline. Non tender CARDIOVASCULAR: Tachycardic but regular rhythm without murmurs, gallops, or rubs. Sharp and stabbing anterior chest pain reproducible to palpation RESPIRATORY: Increased work of breathing but no obvious rhonchi or wheeze, there is some faint crackles in bilateral bases. GASTROINTESTINAL: Abdomen soft, non-tender, nondistended. EXTREMITIES: No edema or joint tenderness. BACK: Nontender without deformity or crepitance. No flank tenderness. NEURO: AOx3. SKIN: No rash or erythema of visible areas Initial Vital Signs Initial Vital Signs: Vital Signs Pulse Rate 101 H 02/06/19 09:36 Respiratory Rate 22 02/06/19 09:36 Pulse Oximetry 96 02/06/19 09:36 Scores ABCD2 Citation: Simplified PESI (Pulmonary Embolism Severity Index) from [address] on 02/06/2019 All calculations should be rechecked by clinician prior to use RESULT SUMMARY: High risk 8.9% risk of in the ?High? risk group (>0 points) INPUTS: Age, years ?> 0 = ?82 History of cancer ?> 0 = No History of chronic cardiopulmonary disease ?> 0 = No Heart rate, bpm ?> 1 = ?110 Systolic BP, mmHg ?> 0 = ?100 O? saturation ?> 0 = ?90% Course Course Course Narrative: immediately upon receipt of elevated troponin and BNP patient given bolus of heparin given concern for PE Orders Ordered: ED Orders 02/06/19 12:15 B Type Natriuretic Peptide Stat Complete Blood Count AUTO DIFF Stat Comprehensive Metabolic Panel Stat D Dimer Stat Lactate (Lactic Acid) Stat Lipase Stat Procalcitonin Stat Troponin & CK Cardiac Panel Stat 02/06/19 13:00 Blood Culture Stat 02/06/19 13:48 CT angio chest PE protocol Stat Discontinued Medications Heparin Sodium (Porcine) (Heparin) 7,500 unit 80 unit/kg (20161 unit) IV NOW ONE Stop: 02/06/19 14:01 Last Admin: 02/06/19 13:54 Dose: 7,500 unit Documented by: HFARRINGTO Sodium Chloride (Normal Saline 0.9%) 1,000 mls @ 150 mls/hr IV CONT CHANDA Last Admin: 02/06/19 12:14 Dose: 150 mls/hr Documented by: ARRINGTO Heparin Sodium/Dextrose (Heparin Drip) 25,000 unit in 500 mls @ 24 mls/hr IV CONT CHANDA; Protocol Last Admin: 02/06/19 14:49 Dose: 1,200 units/hr, 24 mls/hr Documented by: ARRINGTO Consultations Consultation #1: Dr. Mora ([place] [facility]) happy to accept Vital Signs Vital signs: Vital Signs - 8 hr 02/06/19 12:18 02/06/19 15:03 02/06/19 16:09 Pulse Rate 93 H 135 H 95 H Respiratory Rate 20 17 24 Blood Pressure Blood Pressure [Left Wrist] 129/82 132/119 H Pulse Oximetry 94 93 92 02/06/19 17:11 Pulse Rate 134 H Respiratory Rate 24 Blood Pressure 126/71 Blood Pressure [Left Wrist] Pulse Oximetry 96 MDM - SOB/Dyspnea Lab Data Result diagrams: 02/06/19 12:15 02/06/19 12:15 Labs: Lab Results 02/06/19 02/06/19 02/06/19 Range/Units 12:15 12:15 12:15 WBC 9.7 (4.5-11.0) X10^3/uL RBC 4.64 (4.0-5.2) X10^6/uL Hgb 12.2 (12.0-16.0) g/dL Hct 37.4 (36-46) % MCV 80.7 (80-100) fL MCH 26.4 (26-34) PG MCHC 32.7 (30-36) % RDW 15.3 H (11.6-14.8) % Plt Count 210 (150-400) X10^3/uL Neut % (Auto) 66.1 (50-75) % Lymph % (Auto) 25.7 (25-40) % Hodgeman % (Auto) 5.9 (3-14) % Eos % (Auto) 1.5 L (2-4) % Baso % (Auto) 0.8 (0-2) % Neut # (Auto) 6400 (1787-1965) /uL Lymph # (Auto) 2500 (4723-7453) /uL Hodgeman # (Auto) 600 (0-900) /uL Eos # (Auto) 100 (0-450) /uL Baso # (Auto) 100 (0-100) /uL D-Dimer 898 H (<230) ng/mL Sodium 141 (137-145) mmol/L Potassium 4.1 (3.4-5.1) mmol/L Chloride 104 (98-107) mmol/L Carbon Dioxide 26 (22-32) mmol/L BUN 10 (7-17) mg/dL Creatinine 0.60 (0.52-1.04) mg/dL Estimated GFR > 60.0 (>60) mL/min BUN/Creatinine Ratio 16.7 (6-22) Glucose 103 H (70-100) mg/dL Lactate (0.7-2.1) mmol/L Calcium 9.5 (8.4-10.2) mg/dL Total Bilirubin 0.7 (0.2-1.3) mg/dL AST 30 (14-36) IU/L ALT 31 (9-52) IU/L Alkaline Phosphatase 52 (38-126) U/L Total Creatine Kinase 70 (30-135) U/L CK-MB (CK-2) TNP CK-MB (CK-2) Rel Index TNP Troponin I 0.129 H* (0.01-0.034) ng/mL B-Natriuretic Peptide 118 H (<100) Total Protein 7.2 (6.3-8.2) g/dL Albumin 4.0 (3.5-5.0) g/dL Globulin 3.2 (1.7-4.1) g/dL Albumin/Globulin Ratio 1.3 (1.0-2.8) Lipase 50 (23-300) U/L Procalcitonin (<0.5) ng/mL 02/06/19 02/06/19 Range/Units 12:15 12:15 WBC (4.5-11.0) X10^3/uL RBC (4.0-5.2) X10^6/uL Hgb (12.0-16.0) g/dL Hct (36-46) % MCV (80-100) fL MCH (26-34) PG MCHC (30-36) % RDW (11.6-14.8) % Plt Count (150-400) X10^3/uL Neut % (Auto) (50-75) % Lymph % (Auto) (25-40) % Hodgeman % (Auto) (3-14) % Eos % (Auto) (2-4) % Baso % (Auto) (0-2) % Neut # (Auto) (9434-2931) /uL Lymph # (Auto) (2501-5448) /uL Hodgeman # (Auto) (0-900) /uL Eos # (Auto) (0-450) /uL Baso # (Auto) (0-100) /uL D-Dimer (<230) ng/mL Sodium (137-145) mmol/L Potassium (3.4-5.1) mmol/L Chloride (98-107) mmol/L Carbon Dioxide (22-32) mmol/L BUN (7-17) mg/dL Creatinine (0.52-1.04) mg/dL Estimated GFR (>60) mL/min BUN/Creatinine Ratio (6-22) Glucose (70-100) mg/dL Lactate 1.5 (0.7-2.1) mmol/L Calcium (8.4-10.2) mg/dL Total Bilirubin (0.2-1.3) mg/dL AST (14-36) IU/L ALT (9-52) IU/L Alkaline Phosphatase (38-126) U/L Total Creatine Kinase (30-135) U/L CK-MB (CK-2) CK-MB (CK-2) Rel Index Troponin I (0.01-0.034) ng/mL B-Natriuretic Peptide (<100) Total Protein (6.3-8.2) g/dL Albumin (3.5-5.0) g/dL Globulin (1.7-4.1) g/dL Albumin/Globulin Ratio (1.0-2.8) Lipase (23-300) U/L Procalcitonin < 0.05 (<0.5) ng/mL Imaging Data CT scan - chest: Radiologist's impression: [address] [address] [address] Scan Report Signed Patient: Cady Castillo [facility]#: [id number] : 1975Acct:[id number] Age/Sex: 43 / FDate of Service: 02/06/19 Loc: ED Accession Number: [id number] Procedure: CT angio chest PE protocol Ordering Provider: Bimal Britt D.O. PROCEDURE: CT ANGIO CHEST PE PROTOCOL INDICATIONS: CP, SOB, critical dimer, troponin, BNP TECHNIQUE: After the administration of intravenous contrast, 2 mm thick sections acquired from the pulmonary apices to the posterior costophrenic angles. 3-dimensional maximum intensity projection (MIP) coronal and sagittal reformats were then acquired through the thorax. For radiation dose reduction, the following was used: automated exposure control, adjustment of mA and/or kV according to patient size. COMPARISON: None. FINDINGS: Image quality: Excellent. Pulmonary arteries: Large filling defects noted in the pulmonary arteries bilate rally compatible with pulmonary emboli. No pulmonary emboli include a large saddle embolus in the right main pulmonary artery which extends into the middle lobe and lower lobe lobar, segmental and subsegmental pulmonary arteries as well as large saddle embolus in the left main pulmonary artery which extends into the left upper lobe and lobar, segmental and subsegmental pulmonary arteries. Lungs and pleura: Lungs are clear. No pleural effusions or pneumothorax. Central and peripheral airways are patent. Mediastinum: Heart is enlarged, without pericardial effusion. CT evidence of mild right heart strain noted with RV/LV ratio of 1.1. No mediastinal or hilar adenopathy. Thoracic aorta is normal in caliber and enhancement. Esophagus is normal in caliber, without hiatal hernia. Bones and chest wall: No suspicious bony lesions. Ribs and thoracic spine appear intact throughout. Thyroid gland is within normal limits.. No axillary or supraclavicular adenopathy. Abdomen: Liver is enlarged. Diffuse fatty infiltration of the liver. Spleen is enlarged. IMPRESSION: 1. Abnormal study demonstrating large bilateral pulmonary emboli with CT evidence of right heart strain. 2. Findings telephoned to Dr. Bimal Britt on 02/06/2019 at 1426 hrs PDST. Dictated by: Lia Garcia MD, PhD on 02/06/2019 at 13:19 Approved by: Lia Garcia MD, PhD on 02/06/2019 at 13:28 [facility] Narrative Medical decision making narrative: 43F in respiratory distress with large bi lateral PE and evidence of R heart strain based on biochemical markers and imaging. sPESI 1. Cannot keep patient here given large, bilateral PEs, severity of illness, potential to decompensate and potential for intervention such as catheter directed lysis. Critical Care Time Critical Care Time Critical Care Time: Yes Total Critical Care Time: 30 Attestation: The high probability of a clinically significant, sudden or life threatening deterioration of the [CV] system(s) required my full and direct attention, intervention and personal management. The aggregate critical care time was [30] minutes. This time is in addition to time spent performing reported procedures but includes the following: [x] Data Review and interpretation [x] Patient assessment and monitoring of vital signs [x] Documentation [x] Medication orders and management Discharge Plan Departure Patient Disposition: [facility] Clinical Impression: Bilateral pulmonary embolism Discharge Date/Time: 02/06/19 17:12 Prescriptions: No Action Proventil HFA 90 mcg See Rx Instructions .ROUTE .COMPLEX RF: 0 chlorthalidone 25 mg tablet See Rx Instructions PO DAILY Qty: 30 RF: 1 fenofibrate 160 mg tablet 160 mg PO DAILY Qty: 30 RF: 6 cholecalciferol (vitamin D3) 5,000 unit capsule 5,000 unit PO DAILY RF: 0 tramadol 50 mg tablet 50 mg PO QID Qty: 40 RF: 0 (DME) QUAD CANE Qty: 1 RF: 0 spironolactone 25 mg tablet 25 mg PO DAILY Qty: 30 RF: 1 Probiotic 1 tab PO DAILY Qty: 0 RF: 0 ipratropium-albuterol 3 ML solution for nebulization 3 ml INH Q6HP PRNQty: 90 RF: 1 fluticasone propion-salmeterol [Advair Diskus] 500 MCG/50 MCG blister with device 1 puff INH BID Qty: 60 RF: 1 propranolol 20 MG tablet 20 mg PO BID Qty: 60 RF: 12 ondansetron HCl 8 mg tablet 8 mg PO TID PRN (Reason: nausea and vomiting) Qty: 30 RF: 1 ondansetron 4 mg tablet,disintegrating 4 mg PO Q6H PRN (Reason: nausea and vomiting) Qty: 10 RF: 0 ibuprofen 800 mg tablet 800 mg PO DAILY RF: 0 hydrocodone-acetaminophen [[place]] 5-325 mg tablet 1 tab PO Q6H PRN (Reason: pain) Qty: 10 RF: 0 albuterol sulfate [Ventolin HFA] 90 mcg/actuation HFA aerosol inhaler 2 puff INHALATION Q4-6H PRN (Reason: Shortness Of Breath) RF: 0 Disabled Parking Permit 1 dev miscellaneous DIRECTED RF: 0 Referrals: Mayda Mars PA-C [Primary Care Provider] -
--- NOTE | 2019-02-06 10:21 | DI.RAD.S_ITS ---
PROCEDURE: XR CHEST 1V INDICATIONS: chest pain, SOB TECHNIQUE: One view of the chest was acquired. COMPARISON: [facility], CR, XR CHEST 2V, 06/30/2018, 15:42. FINDINGS: Surgical changes and devices: None. Lungs and pleura: Long volumes are low. Bilateral perihilar density is present. No pleural effusions or pneumothorax. Mediastinum: Mediastinal contours appear normal. Heart size is normal. Bones and chest wall: No suspicious bony lesions. Overlying soft tissues appear unremarkable. IMPRESSION: Low lung volumes with bilateral perihilar atelectasis versus pneumonia. Dictated by: Julissa Estrella M.D. on 02/06/2019 at 10:51 Approved by: Julissa Estrella M.D. on 02/06/2019 at 10:52
[2019-02-06] MEDS: SODIUM CHLORIDE 0.9% 1,000 ML 150 ML IV (12:14)
[2019-02-06 12:48] LABS: Add Manual Diff / Slide Review NO; Basophils Absolute Auto 100 /uL (0-100); Basophils Percent Auto 0.8 % (0-2); Eosinophils Absolute Auto 100 /uL (0-450); Eosinophils Percent Auto 1.5 % (2-4); Hematocrit 37.4 % (36-46); Hemoglobin 12.2 g/dL (12.0-16.0); Lymphocytes Absolute Auto 2500 /uL (1100-4500); Lymphocytes Percent Auto 25.7 % (25-40); Mean Corpuscular HGB Conc 32.7 % (30-36); Mean Corpuscular Hemoglobin 26.4 PG (26-34); Mean Corpuscular Volume 80.7 fL (80-100); Monocytes Absolute Auto 600 /uL (0-900); Monocytes Percent Auto 5.9 % (3-14); Neutrophils Absolute Auto 6400 /uL (1500-7000); Neutrophils Percent Auto 66.1 % (50-75); Platelet Count 210 X10^3/uL (150-400); Red Blood Cell Count 4.64 X10^6/uL (4.0-5.2); Red Cell Distribution Width 15.3 % (11.6-14.8); White Blood Cell Count 9.7 X10^3/uL (4.5-11.0)
[2019-02-06 12:58] LABS: D Dimer 898 ng/mL (<230)
[2019-02-06 13:01] LABS: Lactate (Lactic Acid) 1.5 mmol/L (0.7-2.1)
[2019-02-06 13:02] LABS: Alanine Aminotransferase 31 IU/L (9-52); Albumin Globulin Ratio 1.3 (1.0-2.8); Alkaline Phosphatase 52 U/L (38-126); Aspartate Aminotransferase 30 IU/L (14-36); BUN Creatinine Ratio 16.7 (6-22); Bilirubin Total 0.7 mg/dL (0.2-1.3); Blood Urea Nitrogen 10 mg/dL (7-17); Calcium 9.5 mg/dL (8.4-10.2); Carbon Dioxide 26 mmol/L (22-32); Chloride 104 mmol/L (98-107); Creatine Kinase 70 U/L (30-135); Estimated Glomerular Filt Rate > 60.0 mL/min (>60); Globulin 3.2 g/dL (1.7-4.1); Glucose 103 mg/dL (70-100); Lipase 50 U/L (23-300); Potassium 4.1 mmol/L (3.4-5.1); Sodium 141 mmol/L (137-145); Total Protein 7.2 g/dL (6.3-8.2)
[2019-02-06 13:08] LABS: B Type Natriuretic Peptide 118 (<100)
[2019-02-06 13:24] LABS: Procalcitonin < 0.05 ng/mL (<0.5)
[2019-02-06 13:36] LABS: HEMOLYSIS 36 (0-50)
[2019-02-06 13:38] LABS: Troponin I 0.129 ng/mL (0.01-0.034)
--- NOTE | 2019-02-06 13:48 | DI.CT.S_ITS ---
PROCEDURE: CT ANGIO CHEST PE PROTOCOL INDICATIONS: CP, SOB, critical dimer, troponin, BNP TECHNIQUE: After the administration of intravenous contrast, 2 mm thick sections acquired from the pulmonary apices to the posterior costophrenic angles. 3-dimensional maximum intensity projection (MIP) coronal and sagittal reformats were then acquired through the thorax. For radiation dose reduction, the following was used: automated exposure control, adjustment of mA and/or kV according to patient size. COMPARISON: None. FINDINGS: Image quality: Excellent. Pulmonary arteries: Large filling defects noted in the pulmonary arteries bilaterally compatible with pulmonary emboli. No pulmonary emboli include a large saddle embolus in the right main pulmonary artery which extends into the middle lobe and lower lobe lobar, segmental and subsegmental pulmonary arteries as well as large saddle embolus in the left main pulmonary artery which extends into the left upper lobe and lobar, segmental and subsegmental pulmonary arteries. Lungs and pleura: Lungs are clear. No pleural effusions or pneumothorax. Central and peripheral airways are patent. Mediastinum: Heart is enlarged, without pericardial effusion. CT evidence of mild right heart strain noted with RV/LV ratio of 1.1. No mediastinal or hilar adenopathy. Thoracic aorta is normal in caliber and enhancement. Esophagus is normal in caliber, without hiatal hernia. Bones and chest wall: No suspicious bony lesions. Ribs and thoracic spine appear intact throughout. Thyroid gland is within normal limits.. No axillary or supraclavicular adenopathy. Abdomen: Liver is enlarged. Diffuse fatty infiltration of the liver. Spleen is enlarged. IMPRESSION: 1. Abnormal study demonstrating large bilateral pulmonary emboli with CT evidence of right heart strain. 2. Findings telephoned to Dr. Bimal Britt on 02/06/2019 at 1426 hrs PDST. Dictated by: Lia Garcia MD, PhD on 02/06/2019 at 13:19 Approved by: Lia Garcia MD, PhD on 02/06/2019 at 13:28
[2019-02-06] MEDS: HEPARIN 5,000 UNIT/ML VIAL 7500 UNIT IV (13:54)
[2019-02-06] MEDS: HEPARIN DRIP 25,000 UNIT/500 ML IV.SOLN 24 UNIT IV (14:49)
--- NOTE | 2019-02-06 15:39 | PC.NURSE ---
report called to Prov. Jimmy HILL, [place]
--- NOTE | 2019-02-19 00:45 | PC.NURSE ---
Patient transferred to [facility] Heparin infused from [id number]: 24mL/hr approximately 60mL infused NS infused from 1214 until 1711: 150mL/hr approximately 750mL infused
== END 2019-02-06 17:12 | disposition short-term general hospital (02) ==
PROVIDERS: Emergency Provider Emergency Medicine; PCP Physician Assistant
DX: I26.99 Other pulmonary embolism without acute cor pulmonale (principal); R06.02 Shortness of breath; R07.9 Chest pain, unspecified
CPT/HCPCS: 36415; 71045; 71275; 80053; 82550; 83605; 83690; 83880; 84145; 84484; 85025; 85379; 87040; 93005; 96361; 96365; 96375; 99283; 99291; J1644

== ENCOUNTER → 2019-03-26 13:43 | Outpatient (CLI) | payer MEDICARE, OTHER, MEDICAID, SELFPAY ==
--- NOTE | 2019-03-26 13:45 | DI.ECHO.S_ITS ---
[facility] +---------+ [facility] +---------+ : : [address] [address] : : : : [id number] : : : : Phone: [phone] Echocardiogram Report + + :Name: NIEVES MOLINA Study Date: 03/26/2019 Height: 67 in : :[facility] Weight: 465 lb : : Gender: Female BSA: 2.9 m2 : :: 1975 Age: 43 yrs BP: 152/82 mmHg: :Reason For Study: Pulmonary- Embolism : : Performed By: [facility] Staff : :Referring: SKY BARDALES : + + Interpretation Summary 1) Mildly increased left ventricular thickness (concentric) with normal size, normal wall motion, and normal systolic function (EF 60-65%). 2) Normal right ventricular size and function. 3) No significant valvular abnormalities. 4) Hypertension present during the study (BP 152/82mmHg). 5) Compared to the Echo done , no significant change. Procedure: A two-dimensional transthoracic echocardiogram with color flow and Doppler was performed. The study quality was technically difficult. Prior echo performed on 06/08/17. The patient was in normal sinus rhythm during the exam. Left Ventricle: The left ventricle is borderline dilated. There is mild concentric left ventricular hypertrophy. Left ventricular systolic function is normal. The ejection fraction is estimated to be 60-65%. Left ventricular wall motion is normal. Right Ventricle: The right ventricle is normal in size and function. Atria: The left atrial size is normal. Right atrial size is normal. The interatrial septum is intact with no evidence for an atrial septal defect. Mitral Valve: The mitral valve is normal in structure and function. There is no mitral regurgitation noted. Aortic Valve: The aortic valve is trileaflet. The aortic valve opens well. There is no aortic valve stenosis. No aortic regurgitation is present. Tricuspid Valve: The tricuspid valve is normal in structure and function. There is trace tricuspid regurgitation. The right ventricular systolic pressure is estimated to be at least 27 mmHg based on an estimated right atrial pressure of 3 mm Hg. Pulmonic Valve: The pulmonic valve is not well visualized. There is trace pulmonic regurgitation. Great Vessels: The aortic root is normal size. The dimensions of the ascending aorta are normal. The pulmonary artery is normal size. The IVC is of normal diameter and collapses greater than 50% with a sniff. This suggests a low right atrial pressure of 3 mm Hg. Pericardium/ Pleura There is no pericardial effusion. There is no pleural effusion. MMode/2D Measurements & Calculations LVIDd: 5.1 cm LVOT diam: 2.3 cm LVIDs: 3.4 cm Ao root diam: 2.7 cm FS: 34.6 % Aortic Jxn: 2.4 cm EPSS: 0.70 cm asc Aorta Diam: 2.7 cm IVSd: 1.2 cm LVPWd: 1.2 cm LV benítez. diameter/BSA (cm/m^2): 1.8 LV sys. diameter/BSA (cm/m^2): 1.2 LA A2 area: 22.5 cm2 RA long axis: 4.9 cm LA A4 area: 16.9 cm2 RA area: 15.0 cm2 LA length (vol): 4.6 cm RA vol: 39.0 ml LA vol: 69.7 ml RA : 13.5 ml/m2 LA vol index: 24.1 ml/m2 TAPSE: 1.8 cm Doppler Measurements & Calculations Ao V2 max: 181.0 cm/sec LVOT Max Daniel: 112.2 cm/sec Ao V2 mean: 125.2 cm/sec LV V1 max P.0 mmHg Ao max P.1 mmHg LV V1 VTI: 19.4 cm Ao mean P.0 mmHg LORRI(I,D): 2.6 cm2 Ao V2 VTI: 31.0 cm LORRI(V,D): 2.5 cm2 sev ratio: 0.63 LORRI indexed to BSA (cm^2/m^2): 0.89 MV E max daniel: 66.2 cm/sec TR max daniel: 242.8 cm/sec MV A max daniel: 79.6 cm/sec TR max P.6 mmHg MV E/A: 0.83 PA V2 max: 105.2 cm/sec Med Peak E' Daniel: 7.2 cm/sec PA V2 mean: 87.1 cm/sec E/E' med: 9.2 PA mean P.2 mmHg Lat Peak E' Daniel: 13.5 cm/sec PA Accel Time: 0.08 sec E/E' lat: 4.9 E/e' average: 7.0 MV dec time: 0.12 sec SV(LVOT): 79.8 ml Reading Physician:04:09 PM
== END ==
PROVIDERS: PCP Physician Assistant; Visit Provider Physician Assistant
DX: I26.99 Other pulmonary embolism without acute cor pulmonale (principal); G47.33 Obstructive sleep apnea (adult) (pediatric)
CPT/HCPCS: 93306

== ENCOUNTER → 2019-05-22 09:18 | Outpatient (CLI) | payer MEDICARE, MEDICAID, SELFPAY | PROVIDERS: PCP Physician Assistant; Visit Provider Family Medicine | DX: I89.0 Lymphedema, not elsewhere classified (principal); L97.811 Non-pressure chronic ulcer of other part of right lower leg limited to breakdown of skin; R60.0 Localized edema; L08.9 Local infection of the skin and subcutaneous tissue, unspecified; E66.01 Morbid (severe) obesity due to excess calories; Z79.52 Long term (current) use of systemic steroids; Z79.01 Long term (current) use of anticoagulants | CPT/HCPCS: 87070; 87075; 87077; 87186; 87205; 97597; 97598; 99203; 99214 ==

== ENCOUNTER → 2019-05-26 10:14 | Outpatient (CLI) | payer MEDICARE, MEDICAID, OTHER, SELFPAY | PROVIDERS: PCP Physician Assistant; Visit Provider Family Medicine | DX: I89.0 Lymphedema, not elsewhere classified (principal); L97.811 Non-pressure chronic ulcer of other part of right lower leg limited to breakdown of skin | CPT/HCPCS: 97597; 97598; 99213 ==

== ENCOUNTER → 2019-05-28 13:51 | Outpatient (CLI) | payer MEDICARE, MEDICAID, OTHER, SELFPAY | PROVIDERS: PCP Physician Assistant; Visit Provider Family Medicine | DX: I89.0 Lymphedema, not elsewhere classified (principal); L97.811 Non-pressure chronic ulcer of other part of right lower leg limited to breakdown of skin | CPT/HCPCS: 99214 ==

== ENCOUNTER → 2019-06-02 12:38 | Outpatient (CLI) | payer MEDICARE, MEDICAID, SELFPAY | PROVIDERS: PCP Physician Assistant; Referring Provider Physician Assistant; Visit Provider Family Medicine | DX: I89.0 Lymphedema, not elsewhere classified (principal); L97.811 Non-pressure chronic ulcer of other part of right lower leg limited to breakdown of skin; E66.01 Morbid (severe) obesity due to excess calories; R60.0 Localized edema | CPT/HCPCS: 97597 ==

== ENCOUNTER → 2019-06-13 10:56 | Outpatient (CLI) | payer MEDICARE, MEDICAID, SELFPAY | PROVIDERS: PCP Family Medicine; Referring Provider Family Medicine; Visit Provider Family Medicine | DX: I89.0 Lymphedema, not elsewhere classified (principal); L97.811 Non-pressure chronic ulcer of other part of right lower leg limited to breakdown of skin; Z79.01 Long term (current) use of anticoagulants; Z79.52 Long term (current) use of systemic steroids; E66.8 Other obesity | CPT/HCPCS: 97597 ==

== ENCOUNTER → 2019-06-23 11:12 | Outpatient (CLI) | payer MEDICARE, MEDICAID, SELFPAY | PROVIDERS: PCP Family Medicine; Referring Provider Family Medicine; Visit Provider Family Medicine | DX: I89.0 Lymphedema, not elsewhere classified (principal); L97.811 Non-pressure chronic ulcer of other part of right lower leg limited to breakdown of skin; Z79.01 Long term (current) use of anticoagulants; Z79.52 Long term (current) use of systemic steroids | CPT/HCPCS: 97597; 97598; 99213 ==

== ENCOUNTER → 2019-06-30 12:11 | Outpatient (CLI) | payer MEDICARE, OTHER, MEDICAID, SELFPAY | PROVIDERS: PCP Family Medicine; Referring Provider Family Medicine; Visit Provider Family Medicine | DX: I89.0 Lymphedema, not elsewhere classified (principal) | CPT/HCPCS: 29581 ==

== ENCOUNTER → 2019-07-02 10:07 | Outpatient (CLI) | payer MEDICARE, OTHER, MEDICAID, SELFPAY | PROVIDERS: PCP Physician Assistant; Referring Provider Physician Assistant; Visit Provider Family Medicine | DX: I89.0 Lymphedema, not elsewhere classified (principal) | CPT/HCPCS: 29581 ==

== ENCOUNTER → 2019-07-04 10:02 | Outpatient (CLI) | payer MEDICARE, OTHER, MEDICAID, SELFPAY | PROVIDERS: PCP Family Medicine; Referring Provider Family Medicine; Visit Provider Family Medicine | DX: I89.0 Lymphedema, not elsewhere classified (principal) | CPT/HCPCS: 29581 ==

== ENCOUNTER → 2019-07-07 14:11 | Outpatient (CLI) | payer MEDICARE, MEDICAID, SELFPAY | PROVIDERS: PCP Family Medicine; Referring Provider Family Medicine; Visit Provider Family Medicine | DX: I89.0 Lymphedema, not elsewhere classified (principal); L97.811 Non-pressure chronic ulcer of other part of right lower leg limited to breakdown of skin; Z79.01 Long term (current) use of anticoagulants; Z79.52 Long term (current) use of systemic steroids; E66.8 Other obesity; L03.116 Cellulitis of left lower limb | CPT/HCPCS: 87070; 87075; 87077; 87147; 87186; 87205; 97597; 97598; 99213; 99214 ==

== ENCOUNTER → 2019-07-09 11:00 | Outpatient (CLI) | payer MEDICARE, OTHER, MEDICAID, SELFPAY | PROVIDERS: PCP Family Medicine; Referring Provider Family Medicine; Visit Provider Family Medicine | DX: I89.0 Lymphedema, not elsewhere classified (principal); R60.0 Localized edema | CPT/HCPCS: 29581 ==

== ENCOUNTER → 2019-07-11 11:51 | Outpatient (CLI) | payer MEDICARE, MEDICAID, SELFPAY | PROVIDERS: PCP Family Medicine; Referring Provider Family Medicine; Visit Provider Family Medicine | DX: I89.0 Lymphedema, not elsewhere classified (principal) | CPT/HCPCS: 29581 ==

== ENCOUNTER → 2019-07-16 10:41 | Outpatient (CLI) | payer MEDICARE, OTHER, MEDICAID, SELFPAY ==
[2019-07-16 11:41] LABS: Influenza A - CEPHEID Flu A NEGATIVE (NEGATIVE); Influenza B - CEPHEID Flu B NEGATIVE (NEGATIVE)
[2019-07-25 04:05] LABS: COVID19 Sendout Not Detected (Not Detected)
== END ==
PROVIDERS: PCP Family Medicine; Visit Provider Family Medicine
DX: R05 Cough (principal); R50.9 Fever, unspecified
CPT/HCPCS: 87502; 87635

== ENCOUNTER → 2019-08-07 11:06 | Outpatient (CLI) | payer MEDICARE, OTHER, MEDICAID, SELFPAY | PROVIDERS: PCP Family Medicine; Referring Provider Family Medicine; Visit Provider Family Medicine | DX: I89.0 Lymphedema, not elsewhere classified (principal); L97.811 Non-pressure chronic ulcer of other part of right lower leg limited to breakdown of skin; L08.9 Local infection of the skin and subcutaneous tissue, unspecified | CPT/HCPCS: 87070; 87077; 87147; 87185; 87186; 87205; 97597; 99214 ==

== ENCOUNTER → 2019-08-25 09:20 | Outpatient (CLI) | payer MEDICARE, MEDICAID, SELFPAY | PROVIDERS: PCP Family Medicine; Referring Provider Family Medicine; Visit Provider Family Medicine | DX: I89.0 Lymphedema, not elsewhere classified (principal); L97.811 Non-pressure chronic ulcer of other part of right lower leg limited to breakdown of skin; L08.9 Local infection of the skin and subcutaneous tissue, unspecified | CPT/HCPCS: 29581; 87070; 87075; 87077; 87186; 87205; 99213; 99214 ==

== ENCOUNTER → 2019-09-15 11:35 | Outpatient (CLI) | payer MEDICARE, MEDICAID, SELFPAY | PROVIDERS: PCP Family Medicine; Referring Provider Family Medicine; Visit Provider Family Medicine | DX: I89.0 Lymphedema, not elsewhere classified (principal); L97.811 Non-pressure chronic ulcer of other part of right lower leg limited to breakdown of skin; L08.9 Local infection of the skin and subcutaneous tissue, unspecified; R60.0 Localized edema | CPT/HCPCS: 29581; 99214 ==

== ENCOUNTER → 2019-10-06 08:50 | Outpatient (CLI) | payer MEDICARE, MEDICAID, SELFPAY ==
[2019-10-06 10:13] LABS: Add Manual Diff / Slide Review NO; Basophils Absolute Auto 100 /uL (0-100); Eosinophils Absolute Auto 100 /uL (0-450); Eosinophils Percent Auto 1.4 % (2-4); Hematocrit 36.1 % (36-46); Hemoglobin 11.8 g/dL (12.0-16.0); Lymphocytes Absolute Auto 2500 /uL (1100-4500); Lymphocytes Percent Auto 30.2 % (25-40); Mean Corpuscular HGB Conc 32.8 % (30-36); Mean Corpuscular Hemoglobin 23.6 PG (26-34); Mean Corpuscular Volume 72.1 fL (80-100); Monocytes Absolute Auto 600 /uL (0-900); Monocytes Percent Auto 6.8 % (3-14); Neutrophils Absolute Auto 5000 /uL (1500-7000); Neutrophils Percent Auto 60.6 % (50-75); Platelet Count 272 X10^3/uL (150-400); Red Blood Cell Count 5.01 X10^6/uL (4.0-5.2); Red Cell Distribution Width 18.5 % (11.6-14.8); White Blood Cell Count 8.3 X10^3/uL (4.5-11.0)
[2019-10-06 10:17] LABS: Alanine Aminotransferase 19 IU/L (<35); Albumin 4.1 g/dL (3.5-5.0); Albumin Globulin Ratio 1.1 (1.0-2.8); Alkaline Phosphatase 56 U/L (38-126); Aspartate Aminotransferase 28 IU/L (14-36); BUN Creatinine Ratio 24.6 (6-22); Bilirubin Total 0.5 mg/dL (0.2-1.3); Blood Urea Nitrogen 14 mg/dL (7-17); Calcium 9.4 mg/dL (8.4-10.2); Carbon Dioxide 23 mmol/L (22-32); Chloride 105 mmol/L (98-107); Cholesterol 179 mg/dL (140-199); Estimated Glomerular Filt Rate > 60.0 mL/min (>60); Globulin 3.7 g/dL (1.7-4.1); Glucose 108 mg/dL (70-100); HDL Cholesterol 29 mg/dL (40-60); HEMOLYSIS 16 (0-50); LDL Cholesterol Calculated 83 mg/dL (<100); Potassium 4.3 mmol/L (3.4-5.1); Sodium 139 mmol/L (137-145); Total Protein 7.8 g/dL (6.3-8.2); Triglycerides 334 mg/dL (35-150)
== END ==
PROVIDERS: PCP Family Medicine; Referring Provider Family Medicine; Visit Provider Family Medicine
DX: E66.01 Morbid (severe) obesity due to excess calories (principal); E78.1 Pure hyperglyceridemia; I10 Essential (primary) hypertension; I89.0 Lymphedema, not elsewhere classified; R73.01 Impaired fasting glucose; S81.801A Unspecified open wound, right lower leg, initial encounter; Z68.45 Body mass index [BMI] 70 or greater, adult
CPT/HCPCS: 36415; 80053; 80061; 85025

== ENCOUNTER → 2019-10-06 10:06 | Outpatient (CLI) | payer MEDICARE, MEDICAID, SELFPAY | PROVIDERS: PCP Family Medicine; Referring Provider Family Medicine; Visit Provider Family Medicine | DX: I89.0 Lymphedema, not elsewhere classified (principal); L97.811 Non-pressure chronic ulcer of other part of right lower leg limited to breakdown of skin; B96.5 Pseudomonas (aeruginosa) (mallei) (pseudomallei) as the cause of diseases classified elsewhere; E66.01 Morbid (severe) obesity due to excess calories; E78.1 Pure hyperglyceridemia; I10 Essential (primary) hypertension; R73.01 Impaired fasting glucose; Z68.45 Body mass index [BMI] 70 or greater, adult; Z79.01 Long term (current) use of anticoagulants | CPT/HCPCS: 36415; 80053; 80061; 85025; 99214 ==

== ENCOUNTER → 2019-10-27 10:25 | Outpatient (CLI) | payer MEDICARE, MEDICAID, SELFPAY | PROVIDERS: PCP Family Medicine; Referring Provider Family Medicine; Visit Provider Family Medicine | DX: I89.0 Lymphedema, not elsewhere classified (principal); L97.811 Non-pressure chronic ulcer of other part of right lower leg limited to breakdown of skin; Z79.01 Long term (current) use of anticoagulants; E66.8 Other obesity | CPT/HCPCS: 99213 ==

== ENCOUNTER → 2019-11-05 09:10 | Outpatient (CLI) | payer MEDICARE, MEDICAID, SELFPAY ==
[2019-11-05 09:59] LABS: INR 1.9 (0.9-1.3)
== END ==
PROVIDERS: PCP Family Medicine; Referring Provider Family Medicine; Visit Provider Family Medicine
DX: L08.9 Local infection of the skin and subcutaneous tissue, unspecified (principal); Z79.01 Long term (current) use of anticoagulants
CPT/HCPCS: 36415; 85610

== ENCOUNTER 2019-11-16 20:02 | Inpatient (IN) | payer MEDICARE, MEDICAID, SELFPAY ==
[2019-11-16 20:14] VITALS: BP 143/65; PULSE 101; RESP 20; TEMP 37.1; O2SAT 94; BMI 72.0
--- NOTE | 2019-11-16 21:40 | ED.WOUNDLAC ---
HPI - Wound/Laceration General Chief Complaint: Wound/Laceration Stated Complaint: lymphadema, states getting worse, dizzy,lighthead Time Seen by Provider: 11/16/19 21:00 History of Present Illness HPI narrative: Morbidly obese woman with a history of lymphedema and wound to the posterior portion of the right leg that continues to worsen, asthma and pulmonary embolism for which she is anticoagulated with Coumadin presents with worsening pain and drainage from the wound on the right leg. She finished a course of amoxicillin 4 days ago did not feel that it was all that effective however since stopping it she felt that she has gotten progressively worse. There is a open skin crack at the base of the edema medial aspect of the ankle folds that has again cracked open and is painful. Increasing redness to the ankle and heel and increasing swelling to the entire calf with increased seepage from the wound overall. She describes feeling general malaise, she is tachycardic, complains of dizziness and feeling lightheaded. She denies chest pain, cough, fevers, abdominal pain, dysuria, diarrhea. Related Data Home Medications Medication Instructions Recorded Confirmed Disabled Parking Permit 1 dev MISCELLANEOUS DIRECTED 02/06/19 10/17/19 fluticasone furoate 200 1 inhalation INHALATION DAILY 08/21/19 10/17/19 mcg-vilanterol 25 mcg/dose inhalation powder multivitamin 1 tab PO DAILY 08/21/19 10/17/19 Previous Rx's Medication Instructions Recorded ipratropium-albuterol 3 ml INH Q6HP PRN #90 ea 04/17/16 QUAD CANE #1 ea 05/08/18 propranolol 20 mg tablet 20 mg PO BID #60 tab 02/18/19 GRAB BARS FOR SHOWER #3 each 04/21/19 nystatin 100,000 unit/gram topical 1 applictn TOP TID #60 gram 08/21/19 powder warfarin 5 mg tablet 5 mg PO DAILY #60 tab 10/13/19 montelukast 10 mg tablet 10 mg PO DAILY #30 tab 11/10/19 albuterol sulfate 90 mcg/actuation 2 puff INHALATION Q4-6H PRN #18 11/12/19 aerosol inhaler gram hydrocodone 5 mg-acetaminophen 325 1 tab PO Q8H PRN #15 tab 11/12/19 mg tablet Allergies Allergy/AdvReac Type Severity Reaction Status Date / Time latex Allergy Rash Verified 10/17/19 08:57 oxycodone [OXYCODONE] AdvReac Intermediate Irritabilit Verified 10/17/19 08:57 y Review of Systems Review of Systems Narrative: Pertinent positive and negative findings as per HPI Remainder of review of systems is otherwise unremarkable for ENT: No sore throat, neck pain, ear pain CV: Chest pain, palpitations, Respiratory: Cough, wheeze, dyspnea GI: Nausea, vomiting, diarrhea, change in bowel habits, black or bloody stools : Dysuria, hematuria, flank pain MS: Muscle weakness, numbness, joint swelling or warmth Skin: Rashes, Patient History Medical History Concentric left ventricular hypertrophy (Acute ~05/2017) Hypertension (Chronic) Kidney stones (Acute) Migraines (Chronic) Moderate intermittent asthma (Inactive) Ovarian cyst (Resolved 03/28/15) Pneumonia (Resolved 2008) Severe persistent asthma (Acute) Sleep apnea (Chronic) Surgical History History of (Acute) History of esophagogastroduodenoscopy (EGD) (Acute ~04/2015) History of hernia repair (Acute) History of laparoscopic appendectomy (Resolved 03/28/15) History of ovarian cystectomy (Resolved) History of placement of ear tubes (Resolved) History of tonsillectomy (Resolved) Family History Father No problems noted. Mother Atrial fibrillation Grandfather No problems noted. Grandmother No problems noted. Grandfather No problems noted. Grandmother No problems noted. Sister No problems noted. Social History Smoking Status: Former smoker Tobacco: How many years used: 17 second hand exposure: No alcohol intake: former (I only drank occasionally. I haven't had anything for over 10 years. ) Smoking Status: Former smoker alcohol intake frequency: 0-2 drinks per day Substance Use Type: does not use Exam Narrative Exam Narrative: General: Morbidly obese woman in discomfort from the right leg Able to give a complete and coherent history. Well-nourished well-developed HEENT: Moist mucous membranes, normal sclera with reactive pupils, Neck: supple Respiratory: Lungs are clear to auscultation, no wheezing no rales no rhonchi. Full and symmetrical air movement Cardiac: Mild tachycardia but regular rate and rhythm no murmurs no bruits Abdomen: Soft, obese, nontender good bowel tones, no flank pain Neurologic: Grossly neurologically intact with no obvious asymmetries or abnormalities Extremities: No trauma, significant lymphedema bilaterally right obviously worse than the left. The entire posterior calf is covered with a nonhealing shallow ulceration with seepage. There is a slight amount of erythema around the area and the calf is swollen around that area as well. There is a 4 cm skin crack on the medial aspect of the ankle that has reopened that is not draining anything at this time. There is erythema on the posterior portion of the ankle extending onto the foot. There is no erythema extending superiorly, no lymphangitic spread and no obvious inguinal adenopathy (exam is challenging due to body habitus) Skin, no overall rashes and good perfusion distally Psych: Cooperative, appropriate insight and affect Initial Vital Signs Initial Vital Signs: Vital Signs Temperature 98.7 F 11/16/19 20:14 Pulse Rate 101 H 11/16/19 20:14 Respiratory Rate 20 11/16/19 20:14 Blood Pressure 143/65 H 11/16/19 20:14 Pulse Oximetry 94 11/16/19 20:14 Course Orders Ordered: ED Orders 11/16/19 21:29 Urinalysis and Microscopic Stat 11/16/19 21:31 C-Reactive Protein Quant Routine Complete Blood Count AUTO DIFF Stat Comprehensive Metabolic Panel Stat Lactate (Lactic Acid) Stat Partial Thromboplastin Time Routine Procalcitonin Stat Prothrombin Time INR Routine 11/16/19 21:45 Blood Culture Stat Levofloxacin (Levaquin) 750 mg in 150 mls @ 100 mls/hr IV NOW ONE Stop: 11/17/19 01:11 Discontinued Medications Hydrocodone Bitart/Acetaminophen ([place] 5/325) 1 tab PO NOW ONE Stop: 11/16/19 21:40 Last Admin: 11/16/19 21:50 Dose: 1 tab Documented by: TARUN Vancomycin HCl (Vancomycin Per Pharmacy) 1 request MISC NOW ONE Stop: 11/16/19 23:43 Vital Signs Vital signs: Vital Signs - 8 hr 11/16/19 20:14 11/16/19 23:43 Temperature 98.7 F 99.4 F Pulse Rate 101 H 89 Respiratory Rate 20 20 Blood Pressure 143/65 H 134/80 Pulse Oximetry 94 96 MDM - Wound/Laceration Medical Records Attestation: I reviewed the patient's medical records. Lab Data Attestation: I reviewed the patient's lab results. Result diagrams: 11/16/19 21:31 11/16/19 21:31 Labs: Lab Results 11/16/19 11/16/19 11/16/19 Range/Units 21:31 21:31 21:31 WBC 8.5 (4.5-11.0) X10^3/uL RBC 4.96 (4.0-5.2) X10^6/uL Hgb 12.7 (12.0-16.0) g/dL Hct 38.1 (36-46) % MCV 76.8 L (80-100) fL MCH 25.5 L (26-34) PG MCHC 33.2 (30-36) % RDW 22.2 H (11.6-14.8) % Plt Count 288 (150-400) X10^3/uL Neut % (Auto) 65.8 (50-75) % Lymph % (Auto) 26.4 (25-40) % [place] % (Auto) 5.7 (3-14) % Eos % (Auto) 1.2 L (2-4) % Baso % (Auto) 0.9 (0-2) % Neut # (Auto) 5600 (2107-2004) /uL Lymph # (Auto) 2300 (0114-9477) /uL [place] # (Auto) 500 (0-900) /uL Eos # (Auto) 100 (0-450) /uL Baso # (Auto) 100 (0-100) /uL RBC Morphology See below Anisocytosis 3+ H Sodium 138 (137-145) mmol/L Potassium 4.3 (3.4-5.1) mmol/L Chloride 103 (98-107) mmol/L Carbon Dioxide 24 (22-32) mmol/L BUN 15 (7-17) mg/dL Creatinine 0.72 (0.52-1.04) mg/dL Estimated GFR > 60.0 (>60) mL/min BUN/Creatinine Ratio 20.8 (6-22) Glucose 120 H (70-100) mg/dL Lactate (0.7-2.1) mmol/L Calcium 9.5 (8.4-10.2) mg/dL Total Bilirubin 0.4 (0.2-1.3) mg/dL AST 31 (14-36) IU/L ALT 27 (<35) IU/L Alkaline Phosphatase 66 (38-126) U/L Total Protein 7.5 (6.3-8.2) g/dL Albumin 4.3 (3.5-5.0) g/dL Globulin 3.2 (1.7-4.1) g/dL Albumin/Globulin Ratio 1.3 (1.0-2.8) Procalcitonin < 0.05 (<0.5) ng/mL COVID-19 PCR (Negative) 11/16/19 11/16/19 Range/Units 21:31 21:52 WBC (4.5-11.0) X10^3/uL RBC (4.0-5.2) X10^6/uL Hgb (12.0-16.0) g/dL Hct (36-46) % MCV (80-100) fL MCH (26-34) PG MCHC (30-36) % RDW (11.6-14.8) % Plt Count (150-400) X10^3/uL Neut % (Auto) (50-75) % Lymph % (Auto) (25-40) % [place] % (Auto) (3-14) % Eos % (Auto) (2-4) % Baso % (Auto) (0-2) % Neut # (Auto) (0019-4713) /uL Lymph # (Auto) (2689-0468) /uL [place] # (Auto) (0-900) /uL Eos # (Auto) (0-450) /uL Baso # (Auto) (0-100) /uL RBC Morphology Anisocytosis Sodium (137-145) mmol/L Potassium (3.4-5.1) mmol/L Chloride (98-107) mmol/L Carbon Dioxide (22-32) mmol/L BUN (7-17) mg/dL Creatinine (0.52-1.04) mg/dL Estimated GFR (>60) mL/min BUN/Creatinine Ratio (6-22) Glucose (70-100) mg/dL Lactate 1.7 (0.7-2.1) mmol/L Calcium (8.4-10.2) mg/dL Total Bilirubin (0.2-1.3) mg/dL AST (14-36) IU/L ALT (<35) IU/L Alkaline Phosphatase (38-126) U/L Total Protein (6.3-8.2) g/dL Albumin (3.5-5.0) g/dL Globulin (1.7-4.1) g/dL Albumin/Globulin Ratio (1.0-2.8) Procalcitonin (<0.5) ng/mL COVID-19 PCR Negative (Negative) Wound culture from 08/26 grew Pseudomonas 08/09 had Citrobacter Pseudomonas Staph aureus (MSSA) and Enterococcus 07/10 had Alcaligenes Klebsiella MSSA All bacteria are sensitive to levofloxacin with the exception of the light growth of Enterococcus noted on08/09 She recently finished a course amoxicillin on 11/12 MDM Narrative Medical decision making narrative: 44-year-old woman with morbid obesity and lymphedema with a nonhealing ulcer over the entire right posterior calf that has been problematic since February. She has had multiple courses of antibiotics and recently finished a course of amoxicillin. Continuing to worsen with seeping drainage increasing pain and swelling as well as general malaise worsening over the last couple of days. In looking at cultures that have been done since June the bacteria that have grown out include Pseudomonas twice, and SSA twice, Enterococcus twice, Citrobacter, Klebsiella and Alcaligenes. She has little resistance that is developed and all but the Enterococcus her sensitive to Levaquin. For that reason she started on Levaquin IV and vancomycin is added for secondary coverage. She is also on Coumadin and did not receive her evening dose. Knowing that Levaquin will likely increase her INR the evening dose will not be administered. She will be admitted for IV antibiotics, help with keeping her legs elevated as well as wound care. Care is reviewed with SAE Valdez. Patient is safe to transfer to the floor. Discharge Plan Departure Patient Disposition: Admitted As Inpatient Clinical Impression: Wound infection, Morbid obesity with body mass index of 70 and over in adult, Lymphedema Discharge Date/Time: 11/16/19 23:55 Admit Date/Time: 11/16/19 23:54 Admit Provider: Ayaz Villavicencio
[2019-11-16 21:46] LABS: Add Manual Diff / Slide Review NO; Basophils Absolute Auto 100 /uL (0-100); Basophils Percent Auto 0.9 % (0-2); Eosinophils Absolute Auto 100 /uL (0-450); Eosinophils Percent Auto 1.2 % (2-4); Hematocrit 38.1 % (36-46); Hemoglobin 12.7 g/dL (12.0-16.0); Lymphocytes Absolute Auto 2300 /uL (1100-4500); Lymphocytes Percent Auto 26.4 % (25-40); Mean Corpuscular HGB Conc 33.2 % (30-36); Mean Corpuscular Hemoglobin 25.5 PG (26-34); Mean Corpuscular Volume 76.8 fL (80-100); Monocytes Absolute Auto 500 /uL (0-900); Monocytes Percent Auto 5.7 % (3-14); Neutrophils Absolute Auto 5600 /uL (1500-7000); Neutrophils Percent Auto 65.8 % (50-75); Platelet Count 288 X10^3/uL (150-400); Red Blood Cell Count 4.96 X10^6/uL (4.0-5.2); Red Cell Distribution Width 22.2 % (11.6-14.8); White Blood Cell Count 8.5 X10^3/uL (4.5-11.0)
[2019-11-16] MEDS: HYDROCODONE/ACET 5/325 TABLET 1 TAB PO (21:50)
[2019-11-16 21:52] LABS: Lactate (Lactic Acid) 1.7 mmol/L (0.7-2.1)
[2019-11-16 21:55] LABS: Alanine Aminotransferase 27 IU/L (<35); Albumin 4.3 g/dL (3.5-5.0); Albumin Globulin Ratio 1.3 (1.0-2.8); Alkaline Phosphatase 66 U/L (38-126); Aspartate Aminotransferase 31 IU/L (14-36); BUN Creatinine Ratio 20.8 (6-22); Bilirubin Total 0.4 mg/dL (0.2-1.3); Blood Urea Nitrogen 15 mg/dL (7-17); Calcium 9.5 mg/dL (8.4-10.2); Carbon Dioxide 24 mmol/L (22-32); Chloride 103 mmol/L (98-107); Estimated Glomerular Filt Rate > 60.0 mL/min (>60); Globulin 3.2 g/dL (1.7-4.1); Glucose 120 mg/dL (70-100); HEMOLYSIS 17 (0-50); Potassium 4.3 mmol/L (3.4-5.1); Sodium 138 mmol/L (137-145); Total Protein 7.5 g/dL (6.3-8.2)
[2019-11-16 22:17] LABS: Procalcitonin < 0.05 ng/mL (<0.5)
[2019-11-16 22:59] LABS: Anisocytosis 3+
[2019-11-16 23:12] LABS: COVID19 -Nasal RAPID Negative (Negative)
[2019-11-16 23:43] VITALS: BP 134/80; PULSE 89; RESP 20; TEMP 37.4; O2SAT 96
[2019-11-16] MEDS: levoFLOXacin 750 MG/150 ML PIGGYBACK 100 MG IV (23:56)
[2019-11-16 23:57] LABS: INR 1.9 (0.9-1.3); Prothrombin Time 21.3 SECONDS (10.1-12.7)
[2019-11-16 23:59] LABS: PTT Partial Thromboplastin Tim 43 SECONDS (26.4-36.2)
[2019-11-17] VITALS (11 sets, daily range): BP systolic 131–161; BP diastolic 58–72; PULSE 76–91; RESP 14–26; TEMP 36.1–37.1; O2SAT 85–98; BMI 71.8
[2019-11-17 00:28] LABS: C-Reactive Protein Quant 2.1 mg/dL (<1.0)
[2019-11-17 02:02] LABS: WBC Urine None Seen (0-5/HPF)
[2019-11-17 02:04] LABS: Bilirubin Urine UA NEGATIVE (NEGATIVE); Color Urine UA YELLOW; Glucose Urine UA NEGATIVE (Negative); Ketones Urine UA NEGATIVE (NEGATIVE); Leukocyte Esterase Urine UA NEGATIVE (NEGATIVE); Nitrite Urine UA NEGATIVE (Negative); Occult Blood Urine UA 3+ (Negative); Protein Urine UA NEGATIVE (Negative); Urobilinogen Urine UA 0.2 E.U./dL (0.2)
[2019-11-17 02:06] LABS: Appearance Urine UA Slightly Cloudy
[2019-11-17 02:20] LABS: Bacteria Urine Occasional (0-1); Culture Indicated Urine Cult Not Indicated; RBC Urine >100/HPF (0-5/HPF); Squamous Epithelial Cell Urine 0-1 /HPF (0-5/HPF)
[2019-11-17] MEDS: VANCOMYCIN 2,000 MG/400 ML PIGGYBACK 200 MG IV (02:39)
[2019-11-17] MEDS: HYDROCODONE/ACET 5/325 TABLET 1 TAB PO ×2 (02:39→06:21)
--- NOTE | 2019-11-17 02:40 | P.HP_ITS ---
History of Present Illness History of Present Illness Date Patient Seen: 11/17/19 Time Patient Seen: 02:27 Chief complaint: lymphadema, states getting worse, dizzy,lighthead Narrative: Ms. Cady Castillo is a 44-year-old female with a history significant for super morbid obesity, lymphedema, concentric LV hypertrophy, bilateral pulmonary embolism on long-term anticoagulation with warfarin, hypertension, migraines, moderate persistent asthma and obstructive sleep apnea who presents to the ER with worsening lymphedema increasing and pain in the right lower extremity. The patient reports over the last 2-3 days she has developed redness swelling and more pain in the right foot. She has a chronic wound to the posterior lateral aspect of her right lower leg for which she has been seen by wound care. She reports associated symptoms of fevers and chills and dizziness and transient diarrhea that has since resolved. She has been on multiple courses of antibiotic and recently completed a course of amoxicillin. The patient reports that she works with PT and has lymphedema garments at home. The patient denies complaints of headaches, nasal congestion or sore throat. She reports no chest pain or palpitations. She has moderate persistent asthma and reports using her albuterol inhaler daily in uses albuterol Atrovent nebulizer as needed. She denies complaints of shortness of breath cough or wheezing presently. She denies complaints of epigastric or abdominal pain, nausea vomiting. She had diarrhea as noted above and denies urinary symptoms. She is presently on her menstrual cycle. Upon arrival to the ER the patient has a temperature of 99.4?, heart rate of 89, blood pressure 134/80, respirations 20 saturating 96% on room air. No imaging was completed. On laboratory analysis white count is 8.5, hemoglobin is 12.7, hematocrit of 38.1 and platelets of 288. Her electrolytes are all within normal limits. She has a BUN is 15 and creatinine 0.72. Her nonfasting glucose is 120. Her liver functions are all within normal limits she has an albumin of 4.3. Procalcitonin is less than 0.05, lactic acid is 1.7. COVID-19 screening is negative. In the ER the patient received 1 [place] 5 mg/325, levofloxacin 750 mg IV and vancomycin 1500 mg. The patient is admitted to the medicine service for cellulitis of the right lower extremity. Patient History Medical History (Updated 11/17/19 @ 04:24 by SAE Wallis) Concentric left ventricular hypertrophy (Acute ~05/2017) Hypertension (Chronic) Hypertriglyceridemia (Inactive) Kidney stones (Acute) Lymphedema (Inactive) Migraines (Chronic) Moderate persistent asthma (Acute) Ovarian cyst (Resolved 03/28/15) Pneumonia (Resolved 2008) Sleep apnea (Chronic) Wound of right lower extremity (Inactive) Surgical History History of (Acute) History of esophagogastroduodenoscopy (EGD) (Acute ~04/2015) History of hernia repair (Acute) History of laparoscopic appendectomy (Resolved 03/28/15) History of ovarian cystectomy (Resolved) History of placement of ear tubes (Resolved) History of tonsillectomy (Resolved) Family & Social History Family History Father No problems noted. Mother Atrial fibrillation Grandfather No problems noted. Grandmother No problems noted. Grandfather No problems noted. Grandmother No problems noted. Sister No problems noted. Safety & Behavioral: Feels Safe in Current Yes Environment Been Physically Hurt or No Threatened By a Person Tobacco & Substance use: Smoking Status Former smoker alcohol intake former alcohol intake frequency 0-2 drinks per day Substance Use Type does not use Meds Home Medications and Allergies Home Medications Medication Instructions Recorded Confirmed Type ipratropium-albuterol 3 ml INH Q6HP PRN #90 ea 04/17/16 11/17/19 Rx QUAD CANE #1 ea 05/08/18 11/17/19 Rx Disabled Parking Permit 1 dev MISCELLANEOUS DIRECTED 02/06/19 11/17/19 History propranolol 20 mg tablet 20 mg PO BID #60 tab 02/18/19 11/17/19 Rx GRAB BARS FOR SHOWER #3 each 04/21/19 11/17/19 Rx fluticasone furoate 200 1 inhalation INHALATION DAILY 08/21/19 11/17/19 History mcg-vilanterol 25 mcg/dose inhalation powder multivitamin 1 tab PO DAILY 08/21/19 11/17/19 History nystatin 100,000 unit/gram topical 1 applictn TOP TID #60 gram 08/21/19 11/17/19 Rx powder warfarin 5 mg tablet 5 mg PO DAILY #60 tab 10/13/19 11/17/19 Rx montelukast 10 mg tablet 10 mg PO DAILY #30 tab 11/10/19 11/17/19 Rx albuterol sulfate 90 mcg/actuation 2 puff INHALATION Q4-6H PRN #18 11/12/19 11/17/19 Rx aerosol inhaler gram hydrocodone 5 mg-acetaminophen 325 1 tab PO Q8H PRN #15 tab 11/12/19 11/17/19 Rx mg tablet Allergies Allergy/AdvReac Type Severity Reaction Status Date / Time latex Allergy Rash Verified 10/17/19 08:57 oxycodone [OXYCODONE] AdvReac Intermediate Irritabilit Verified 10/17/19 08:57 y Review of Systems Review of Systems ROS: Yes All systems reviewed with the patient and are negative except as otherwise documented Exam Vital Signs (past 8 hours): - 11/16/19 20:14 11/16/19 23:43 11/17/19 01:50 Temperature 98.7 F 99.4 F 98.8 F Pulse Rate 101 H 89 89 Respiratory Rate 20 20 18 Blood Pressure 143/65 H 134/80 161/71 H Pulse Oximetry 94 96 93 11/17/19 02:18 Temperature Pulse Rate Respiratory Rate Blood Pressure Pulse Oximetry 95 Oxygen Delivery Method Room Air Oxygen Flow Rate 0 Narrative Exam Narrative: GENERAL APPEARANCE: well developed, super morbidly obese female with BMI of 71.8, alert and conversant in no acute distress. HEENT: Normocephalic, PERRLA, conjunctiva clear, EOMs intact without nystagmus, no rhinorrhea, mucous membranes are moist and pink without lesions or exudate. NECK/THYROID: neck supple, no JVD, no thyromegaly, trachea midline. LYMPH NODES: no cervical or supraclavicular lymphadenopathy. SKIN: [place], warm and dry, skin changes bilateral lower extremities with approximately 10 cm x 8 cm excoriated area posterior lateral left lower leg weeping clear fluid, crack in the skin fold, redness and warmth the distal 3rd of the right lower extremity. HEART: regular rate and rhythm, S1-S2, systolic murmur right upper sternal border, no rubs or gallops, brisk capillary refill, severe bilateral lower extremity lymphedema. LUNGS: Breath sounds distant and clear to auscultation bilaterally, no coarseness crackles or wheezing, no cough present CHEST: Symmetrical movement, no accessory muscle use, good tidal volume. ABDOMEN: Soft, round and obese, tympanic to percussion upper dull lower abdomen, no epigastric or abdominal tenderness, no organomegaly but exam limited by body habitus, no flank or suprapubic tenderness, active bowel tones. EXTREMITIES: moves all extremities, BLE strength is 2/5, patient with difficulty lifting leg off the bed. NEUROLOGIC: AAO x4, no focal neurologic deficits, cranial nerves II-XII grossly intact, sensation grossly intact light touch, hearing grossly normal to speech. PSYCH: Good judgment, linear thought process, cooperative, appropriate with stable behavior Objective Labs Result Diagrams: 11/17/19 04:30 11/17/19 04:30 Labs: Laboratory Results - last 24 hr 11/16/19 11/16/19 11/16/19 21:31 21:31 21:31 WBC 8.5 RBC 4.96 Hgb 12.7 Hct 38.1 MCV 76.8 L MCH 25.5 L MCHC 33.2 RDW 22.2 H Plt Count 288 Neut % (Auto) 65.8 Lymph % (Auto) 26.4 [place] % (Auto) 5.7 Eos % (Auto) 1.2 L Baso % (Auto) 0.9 Neut # (Auto) 5600 Lymph # (Auto) 2300 [place] # (Auto) 500 Eos # (Auto) 100 Baso # (Auto) 100 RBC Morphology See below Anisocytosis 3+ H PT INR APTT Sodium 138 Potassium 4.3 Chloride 103 Carbon Dioxide 24 BUN 15 Creatinine 0.72 Estimated GFR > 60.0 BUN/Creatinine Ratio 20.8 Glucose 120 H Lactate Calcium 9.5 Total Bilirubin 0.4 AST 31 ALT 27 Alkaline Phosphatase 66 C-Reactive Protein Total Protein 7.5 Albumin 4.3 Globulin 3.2 Albumin/Globulin Ratio 1.3 Procalcitonin < 0.05 Urine Color Urine Appearance Urine pH Ur Specific [place] Urine Protein Urine Glucose (UA) Urine Ketones Urine Occult Blood Urine Nitrate Urine Bilirubin Urine Urobilinogen Ur Leukocyte Esterase Urine RBC Urine WBC Ur Squamous Epith Cells Urine Bacteria Ur Culture Indicated? COVID-19 PCR 11/16/19 11/16/19 11/16/19 21:31 21:31 21:31 WBC RBC Hgb Hct MCV MCH MCHC RDW Plt Count Neut % (Auto) Lymph % (Auto) [place] % (Auto) Eos % (Auto) Baso % (Auto) Neut # (Auto) Lymph # (Auto) [place] # (Auto) Eos # (Auto) Baso # (Auto) RBC Morphology Anisocytosis PT 21.3 H INR 1.9 H APTT 43 H Sodium Potassium Chloride Carbon Dioxide BUN Creatinine Estimated GFR BUN/Creatinine Ratio Glucose Lactate 1.7 Calcium Total Bilirubin AST ALT Alkaline Phosphatase C-Reactive Protein 2.1 H Total Protein Albumin Globulin Albumin/Globulin Ratio Procalcitonin Urine Color Urine Appearance Urine pH Ur Specific [place] Urine Protein Urine Glucose (UA) Urine Ketones Urine Occult Blood Urine Nitrate Urine Bilirubin Urine Urobilinogen Ur Leukocyte Esterase Urine RBC Urine WBC Ur Squamous Epith Cells Urine Bacteria Ur Culture Indicated? COVID-19 PCR 11/16/19 11/17/19 21:52 01:51 WBC RBC Hgb Hct MCV MCH MCHC RDW Plt Count Neut % (Auto) Lymph % (Auto) [place] % (Auto) Eos % (Auto) Baso % (Auto) Neut # (Auto) Lymph # (Auto) [place] # (Auto) Eos # (Auto) Baso # (Auto) RBC Morphology Anisocytosis PT INR APTT Sodium Potassium Chloride Carbon Dioxide BUN Creatinine Estimated GFR BUN/Creatinine Ratio Glucose Lactate Calcium Total Bilirubin AST ALT Alkaline Phosphatase C-Reactive Protein Total Protein Albumin Globulin Albumin/Globulin Ratio Procalcitonin Urine Color Yellow Urine Appearance Slightly cloudy Urine pH 5.0 Ur Specific [place] 1.020 Urine Protein Negative Urine Glucose (UA) Negative Urine Ketones Negative Urine Occult Blood 3+ H Urine Nitrate Negative Urine Bilirubin Negative Urine Urobilinogen 0.2 Ur Leukocyte Esterase Negative Urine RBC >100/hpf H Urine WBC None seen Ur Squamous Epith Cells 0-1 /hpf Urine Bacteria Occasional (0-1) D Ur Culture Indicated? Cult not indicated COVID-19 PCR Negative Assessment & Plan Assessment & Plan narrative: This is a 44-year-old female patient with history of super morbid obesity, hypertension with concentric LV hypertrophy, history of bilateral PE in January of 2019, migraines asthma and obstructive sleep apnea who presents to the ER for worsening lymphedema, chronic wound right lower extremity and found to have cellulitis of the right lower extremity. 1. Cellulitis right lower extremity, present on admission, active -patient with new onset redness warmth and swelling of the right lower extremity and foot over the last 2 3 days, skin is red and warm to the touch surrounding nonhealing wound described below. -white blood count is 8.5, procalcitonin is less than 0.05, and lactic acid is 1.7. Will obtain a CRP. -multiple cultures revealed: 08/26 grew Pseudomonas 4/ had Citrobacter Pseudomonas Staph aureus (MSSA) and Enterococcus 07/10 had Alcaligenes Klebsiella MSSA -Review of sensitivities finds all are sensitive to levofloxacin except for Enterococcus described as light growth. -the patient just completed a 10 day course of amoxicillin clavulanate on 11/09/2019. -ordered levofloxacin 750 mg IV daily, 1st dose administered in the ER. -ordered vancomycin pharmacy to dose, patient received 1500 mg vancomycin in the ER. -will follow CBC and CRP. 2. Nonhealing wound right lower extremity, chronic, present on admission, active -Patient is followed at the wound clinic for large nonhealing wound posterior lateral right lower leg, 8 x 10 cm weeping superficial skin breakdown without exposure underlying tissues. -will apply Silvadene thin layer and cover with Telfa daily and change as needed. -wound culture of skin cracking in the skin folds of the right lower extremity obtained in the emergency department. -requested wound care consult has an existing patient. 3. Lymphedema bilateral lower extremities, chronic, stable. -Patient with severe lymphedema bilateral lower extremities with skin discoloration changes and resulting in skin breakdown. -patient has lymphedema garments at home, requested family to bring in, until then will use Silvio wrap compression bilateral lower extremities. -request PT and OT to consult evaluate and treat for both mobility and lymphedema mobilization. 4. Moderate persistent asthma, chronic, stable. -patient without complaints of shortness of breath and has no wheezing on exam. Oxygen saturation is 90/6% on room air. -patient reports using albuterol MDI daily and albuterol Atrovent nebulizer on an as-needed basis. -requested RT to consult evaluate and treat. -will continue patient's home regimen of inhaler and nebulizer therapy. 5. Essential hypertension, chronic, stable. -blood pressure upon arrival is well controlled at 134/80. -continue present home regimen of propranolol 20 mg twice daily. 6. History of bilateral pulmonary embolism, on long-term anticoagulation, stable -patient is on warfarin 5 mg daily since large bilateral pulmonary embolism treated at [facility] in January of 2019. No complaints of chest pain or shortness of breath. -will obtain coagulation studies on admission labs since the patient has been started on levofloxacin. -will monitor INR daily with anticipation of elevation of INR with antibiotic treatment. 7. Obstructive sleep apnea, chronic, stable. -patient with LUCAS secondary to body habitus, uses CPAP at home. -requested respiratory therapy consult evaluate and treat. -ordered CPAP per protocol. 8. Supra morbid obesity, BMI 71.8, chronic, stable. -[facility]2019 patient has lost 4 lb. -patient with Betty in skin folds, ordered nystatin powder topically 3 times a day as needed. -patient is working on a dietary plan, requested dietitian consult. VTE prophylaxis: Silvio wrap bilateral lower extremities, anticoagulated on warfarin IV fluid: Saline lock Diet: Heart healthy Code status: FULL CODE, she designates her sister Sri Castillo to be her surrogate decision maker. The patient is admitted to the hospital for worsening lymphedema and nonhealing wound resulting in cellulitis. The patient is admitted as an inpatient with expected length of stay to be greater than 2 midnights. COVID-19 COVID-19 status: Negative Result date/Date tested (Pos, Neg/Pending): 11/17/19 Scores GCS Bety coma scale eye opening: Spontaneous [place] coma scale verbal response: Orientated Bety coma scale motor response: Obey commands Bety coma scale total score: 15
[2019-11-17 05:09] LABS: INR 2.2 (0.9-1.3); Prothrombin Time 25.4 SECONDS (10.1-12.7)
[2019-11-17 05:11] LABS: Add Manual Diff / Slide Review NO; Basophils Absolute Auto 100 /uL (0-100); Basophils Percent Auto 1.1 % (0-2); Eosinophils Absolute Auto 100 /uL (0-450); Eosinophils Percent Auto 1.5 % (2-4); Hematocrit 33.5 % (36-46); Hemoglobin 10.6 g/dL (12.0-16.0); Lymphocytes Absolute Auto 2200 /uL (1100-4500); Lymphocytes Percent Auto 27.5 % (25-40); Mean Corpuscular HGB Conc 31.7 % (30-36); Mean Corpuscular Hemoglobin 24.4 PG (26-34); Mean Corpuscular Volume 76.9 fL (80-100); Monocytes Absolute Auto 500 /uL (0-900); Monocytes Percent Auto 6.7 % (3-14); Neutrophils Absolute Auto 5000 /uL (1500-7000); Neutrophils Percent Auto 63.2 % (50-75); Platelet Count 225 X10^3/uL (150-400); Red Blood Cell Count 4.36 X10^6/uL (4.0-5.2); Red Cell Distribution Width 22.1 % (11.6-14.8)
[2019-11-17 05:19] LABS: BUN Creatinine Ratio 23.7 (6-22); Blood Urea Nitrogen 14 mg/dL (7-17); Calcium 8.8 mg/dL (8.4-10.2); Carbon Dioxide 26 mmol/L (22-32); Chloride 104 mmol/L (98-107); Estimated Glomerular Filt Rate > 60.0 mL/min (>60); Glucose 105 mg/dL (70-100); HEMOLYSIS 18 (0-50); Potassium 3.7 mmol/L (3.4-5.1); Sodium 137 mmol/L (137-145)
--- NOTE | 2019-11-17 05:44 | PC.NURSE ---
Admit Note-Patient brought to room 227 via WC, she was able to transfer to bed with cane and SBA. 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 Vancomycin infused, 1 [place] given for pain per prn. Placed on ETCO2 monitoring r/t sleep apnea, required 0-2L O2 while sleeping on her back to keep SpO2 >92%
[2019-11-17 05:58] LABS: Hemoglobin A1C% w Est Avg Glu 5.1 % (4.0-6.0)
[2019-11-17 06:34] LABS: Anisocytosis 3+
[2019-11-17] MEDS: NYSTATIN POWDER 15GM 1 APPLIC TOP ×3 (08:46→22:40)
[2019-11-17] MEDS: HYDROCODONE/ACET 10/325 TABLET 2 TAB PO ×2 (08:46→19:17)
[2019-11-17] MEDS: SILVER SULFADIAZINE 1% CREAM 25 GM 1 APPLIC TOP (08:47)
[2019-11-17] MEDS: SODIUM CHLORIDE 0.9% FLUSH 10 ML IV ×2 (08:47→22:38)
--- NOTE | 2019-11-17 10:57 | PC.NURSE ---
Pt c/o pain 9/10 on current pain regimen. Pt requiring dsg change to RLE and unable to tolerate due to pain. Called to Dr. Gibson. Reported pain assessment. Orders received. Post med administration pt was able to tolerate dsg change and rated pain 5/10 after dsg change completed. She states that normally pain is 7-9/10 so 5/10 pain score is tolerable. Wound was cleansed with soap and water, rinsed with sterile water, pat dry. Applied silvadene ointment and covered with telfa. Wrapped with kerlix and secured with tape. Applied coban over kerlix per pt request. Pt declined cong wraps to legs stating that her lymphedema specialist instructed her not to use them. The wound itself is erythemic/macerated. There is a moderate amount of yellow to white exudate within the erythemic borders. The odor is moderate and fungal. The wound is weeping moderately and drainage is white to sun. There are some areas of intact blistering melquiades wound. Pt states that the drainage feels acidic and graves when it drains on the macerated areas of the wound. Did call to wound clinic prior to dsg change to inquire about approximate timing of rounds. Elizabeth states that they will likely just see her in wound clinic at her previously scheduled appt on Sunday and that no changes in wound care regimen are expected. Updated Dr. Gibson on team rounds.
[2019-11-17] MEDS: VANCOMYCIN 1,500 MG/300 ML FROZ.PIGGY 200 MG IV ×2 (11:26→19:17)
[2019-11-17] MEDS: MONTELUKAST 10 MG TABLET PO (11:26)
--- NOTE | 2019-11-17 11:37 | CM.DANOTE ---
DCP Assessment: EMR reviewed: Patient is a 44 yr old female who was admitted for Cellulitis right lower extremity. Patients PCP is Dr. Crystal. CM/RN met with patient at the bedside and explained role. patient was alert and oriented x3 during CM/Rn visit. Patient stated she lives at home with her mother Heike who helps care for her. her mother does the driving, food prep and grocery shopping for the patient. Patient stated she currently goes to OP PT and OP OT during the week and has OP wound care at the wound care clinic here at [facility] PT and OT evaluations pending. I: Medicare and Medicaid P: D/C home with her mother who will help patient get to and from OP appointments for OT and PT as well as wound care once patient is stable for D/C Jaqui Holden RN Discharge Planning/Care Management CM Discharge Assessment Start: 11/17/19 11:35 Freq: Status: Active Protocol: Document 11/17/19 11:35 HS (Rec: 11/17/19 11:37 HS [id number]) Discharge Planning Assessment Assigned Farm Field Manager Jaqui Holden RN DPOA/Assigned Designee Name Heike Marquez ( Mother) Contact Information [phone] Advance Directives? No Advance Directives on File No History Provided By Patient Has Patient been admitted in last 30 No days? Prior Living Arrangements House Household Members family Type of transporation used prior to Relies on Others admit Independent with ADL's No Is patient alert and oriented? Yes Needs Assistance With Grooming,Home Chores / Shopping Caregiver for Another No Community Services used prior to Physical Therapy,Occupational admission: Therapy,Wound Care DME Already Rented / Owned FWW / Walker,Cane Patient/Family Preference OP PT Therapy,OP OT Therapy Discharge Plan Home Community Services Physical Therapy,Occupational Therapy,Wound Care Referrals Initiated None needed Whiteboard Updated in Patient Room with Yes name and ext. # of Farm Field Manager Review Status In Process Next Review Type Continued Stay Review
[2019-11-17] MEDS: ALBUTEROL/IPRATROPIUM 3 ML AMPUL INH (11:39)
--- NOTE | 2019-11-17 12:09 | PT.IIE ---
Current Diagnoses Cellulitis of right lower limb (11/16/19) Surgical History (Last Reviewed 11/17/19 @ 02:40 by SAE Wallis) History of (Acute) History of esophagogastroduodenoscopy (EGD) (Acute ~04/2015) History of hernia repair (Acute) History of laparoscopic appendectomy (Resolved 03/28/15) History of ovarian cystectomy (Resolved) History of placement of ear tubes (Resolved) History of tonsillectomy (Resolved) Medical History (Last Updated 11/17/19 @ 04:24 by SAE Wallis) Concentric left ventricular hypertrophy (Acute ~05/2017) Hypertension (Chronic) Hypertriglyceridemia (Inactive) Kidney stones (Acute) Lymphedema (Inactive) Migraines (Chronic) Moderate persistent asthma (Acute) Ovarian cyst (Resolved 03/28/15) Pneumonia (Resolved 2008) Sleep apnea (Chronic) Wound of right lower extremity (Inactive) Physical Therapy Inpatient Evaluation/Re-Eval M1 PT/OT-IP Prior Functional Status Start: 11/17/19 10:35 Freq: NEEDED Status: Active Protocol: Document 11/17/19 11:31 AW (Rec: 11/17/19 12:08 AW [id number]) Medical Review Prior Functional Status Medical History Reviewed Yes Communication WNL. Pt is an effective verbal communicator. Mobility and Gait Pt has lymphedema at baseline and is followed by outpatient PT and wound care at this hospital. She uses a SPC 100% of the time to walk household and short community distances up to ~50 feet. She often requires some assist to move her legs in and out of the bed . She states she has felt increased dizziness since Sunday night. Pt denies any falls during the last 15 years . She has fibromyalgia and bilateral knee pain (R more affected than left). Activities of Daily Living and IADL's Pt's 14 and 20-yo children assist with lower body dressing. She has been unable to shower due to her wound dressings so has been taking sponge baths. When she does shower, she uses a deep tub/ shower and stands. She uses her cane or the counter next to the toilet to assist with toilet transfers and does her best with toilet hygiene. Pt sleeps in bed or upright in a chair ~50/50. She exits the bed to her left side. Prior Functional Level (Other details) Pt has been unable to drive secondary to her R LE wound. She has an agency (unable to name) take her to PT appointments and her daughter drives her to wound care appointments. Social History Household Members family,children Living Arrangements House Number of Floors (Floors) One Floor Number of Stairs To Enter/Railing? Short threshhold to enter. Home Environment Standard Height Toilet,Tub/ Shower Home Equipment Front Wheel Walker,Straight Cane,Grab Bars In Shower Additional Social History Comment Pt lives with her mother and her 2 children - ages 14 and 20 years. Per care management note, pt's mother assists with grocery shopping and food prep. M2 PT-IP Current Condition Start: 11/17/19 10:35 Freq: NEEDED Status: Active Protocol: Document 11/17/19 11:31 AW (Rec: 11/17/19 12:08 AW [id number]) Physical Therapy Current Condition Current Condition Evaluation Date 11/17/19 Treatment Diagnosis RLE cellulitis; difficulty in walking Onset Date 11/15/19 M3 PT-IP Subjective Start: 11/17/19 10:35 Freq: NEEDED Status: Active Protocol: Document 11/17/19 11:31 AW (Rec: 11/17/19 12:08 AW [id number]) Subjective Physical Therapy Visit Type Type Initial Evaluation Visit Start Time 10:59 Visit Stop Time 11:26 Total Visit Minutes 27 Physical Therapy Visit Comments Patient Comments Pt just returned from the toilet but is willing to participate with PT Patient Goals To return home Therapy Pain Assessment Pain When Pain Assessed At Rest Pain Present Pain Present Pain Reported Location Right Lower Posterior Leg Intensity 4 Scale Used Numeric (0 - 10) Pain Management Techniques Distraction,Re-positioning M4 PT-IP Mobility and Gait Start: 11/17/19 10:35 Freq: NEEDED Status: Active Protocol: Document 11/17/19 11:31 AW (Rec: 11/17/19 12:08 AW [id number]) PT-Bed Mobility Assessment Supine to Sit Supine to Sit Minimal Assistance,1 Person Assistance Sit to Supine Sit to Supine Standby Assistance Scooting Scooting to Edge of Bed Standby Assistance Scooting Up and Down in Bed Standby Assistance PT-Transfer Assessment Sit to and From Stand Sit to and from Stand Standby Assistance,Use of Upper Extremities Equipment Transfer Assistive Device Gait Belt,Straight Cane Transfers Transfer Destination Bed,Chair Transfer Technique pt ambulated with SPC Transfer Ability Level of Assist Standby Assistance Comments Mobility Comments Pt completed supine to sit with min A x 1 to move her right leg, exiting the bed to her left side as she would at home. She was able to sit EOB with and without UE support. She completed sit to stand SBA using SPC. BP in sitting was 146/72. Pt reported mild dizziness consistent with symptoms since Sunday night which cleared within 2 minutes . Pt stood with SPC SBA and ambulated around the bed to the chair ~20 feet. She transferred to and from the chair SBA for seated rest break. She ambulated back to the left side of the bed with SPC SBA and transferred sit to supine SBA by using momentum to swing her right leg into the bed. She was able to roll side to side and bridge her hips in order to reposition herself. Pt was positioned comfortably on the bed with call light and all needs within reach. Gait Assessment Gait Gait Assistance Required: Standby Assistance Distance (Feet) 20 Assistive Devices Assistive Device Gait Belt,Straight Cane Gait Deviations General Gait Pattern Antalgic,Decreased Stride Length,Decreased Feet Clearance,Flexed Trunk,Lateral Trunk Lean,Wide Based Gait Factors Limiting Gait Function Factors Limiting Gait Function Decreased Activity Tolerance, Decreased Sensation,Decreased Strength,Pain,Poor Balance Comments Gait Comments Pt ambulated around the room 20' x 2 using SPC SBA. Her ipsilateral lean in stance phase shows increased amplitude due to B LE pain. Stair Climbing Assessment Comments Stair Climbing Comments Not assessed. Threshhold only at home. PT-Balance Assessment Sitting Balance and Reactions Static Sitting Balance Ability Good Dynamic Sitting Balance Ability Good Standing Balance and Reactions Static Standing Balance Ability Good Dynamic Standing Balance Ability Fair Device Used SPC M5 PT-IP Objective Assessments Start: 11/17/19 10:35 Freq: NEEDED Status: Active Protocol: Document 11/17/19 11:31 AW (Rec: 11/17/19 12:08 AW [id number]) Orientation Orientation/Cognition Level of Alertness Alert Orientation Name,Day of Week,Place, Situation Language Function Ability No Deficits Noted Safety Awareness Understands Safety Issues Memory Description No Deficits Noted Strength Lower Extremity Strength Assessment Bilaterally Impaired Hip 3-/5 Knee 4-/5 Ankle 4/5 Coordination Assessment Gross Coordination Gross Coordination WNL Sensation Assessment Sensation Gross Sensation Right LE Impaired,Left LE Impaired Sensation Description Hyperesthesia,Tingling Comments Sensation Comments Pt reports B LE tingling and hyperesthesia associated with fibromyalgia. M6 PT-IP Treatment Start: 11/17/19 10:35 Freq: NEEDED Status: Active Protocol: Document 11/17/19 11:31 AW (Rec: 11/17/19 12:08 AW [id number]) Physical Therapy Treatment Exercises Exercises Ankle Pumps,Gluteal Sets Education Education Provided Precautions,Safety M7 PT-IP Assessment and Plan Start: 11/17/19 10:35 Freq: NEEDED Status: Active Protocol: Document 11/17/19 11:31 AW (Rec: 11/17/19 12:08 AW [id number]) PT Summary Assessment and Plan Potential Rehabilitation Potential Good Status of Condition at Evaluation Stable Summary Impairments Pain,ROM,Strength,Balance, Sensation,Bed Mobility, Transfers,Gait,Activity Tolerance Assessment Summary Kiersten is a 44 to woman admitted with R LE wound/ cellulitis secondary to 1.5 year history of lymphedema. She is followed by PT and wound care at this hospital. At baseline, she requires some assist for bed mobility and is modified independent for short distance ambulation with a SPC. On evaluation, she required min assist for bed mobility and SBA for transfers and ambulation with SPC. She is likely near her baseline mobility status but would benefit from at least one more acute PT session to ensure safe mobility progression. Goals Bed Mobility Goal Contact Guard Assistance Transfer Goal Standby Assistance,Cane Gait Goal Standby Assistance,Cane Gait Distance 50 feet Days to Meet Goals 2 Frequency of Treatment Frequency Of Treatment Once a Day Treatment Plan Physical Therapy Treatment Plan Bed Mobility Training,Transfer Training,Gait Training, Therapeutic Exercise,Balance Retraining,Discharge Planning, Neuromuscular Re-ed,Manual Therapy Other Recommendations and Next Treatment bed mobility; ther ex for BLE Focus strength; progress gait with SPC (with chair follow as needed) Recommendations To Nursing Amount of Assist Needed 1 Person Assist Discharge Recommendations PT Discharge Recommendations Home with Assistance, Outpatient PT Other Discharge Recommendations resume OP PT for lymphedema management Transportation Needs at Discharge Private Vehicle
--- NOTE | 2019-11-17 12:38 | OT.IP.TRT ---
Current Diagnoses Cellulitis of right lower limb (11/16/19) Occupational Therapy Treatment Note M2 OT-IP Current Condition Start: 11/17/19 12:37 Freq: Status: Active Protocol: Document 11/17/19 12:37 [facility] (Rec: 11/17/19 12:46 [facility] [id number]) Occupational Therapy Current Condition Current Condition Treatment Diagnosis RLE cellulitis M3 OT- IP Subjective and Pain Start: 11/17/19 12:37 Freq: Status: Active Protocol: Document 11/17/19 12:37 [facility] (Rec: 11/17/19 12:46 [facility] [id number]) OT- Subjective Occupational Therapy Visit Type Type Treatment Note Visit Start Time 12:29 Visit Stop Time 12:38 Total Visit Minutes 9 Occupational Therapy Visit Comments Patient Comments Pt will to talk to OT regarding possible needs. Patient/Caregiver Goals TO go home when medically stable. OT Pain Assessment Pain When Pain Assessed At Rest Pain Present Pain Present Denied Pain M4 OT- IP ADL's Start: 11/17/19 12:37 Freq: Status: Active Protocol: Document 11/17/19 12:37 [facility] (Rec: 11/17/19 12:46 [facility] [id number]) OT NAM-Sruu-Vevarul General Evaluation Self-Feeding Ability Independent OT ADL-Grooming Comments OT Grooming Comments Not at this time. OT ADL-Dressing General Eval Lower Body Dressing Ability Maximum Assistance Comments OT Dressing Comments Pt states that her family assists with her LB dressing needs. Educated pt on LB dressing equipment and not interested at this time and content on her family to assist her for her needs. OT ADL-Toileting Comments OT Toileting Comments Pt states only time needing assist for toileting is when she is on her menstrual cycle. Pt states her family is able and willing to help her. Educated on toilet paper aid that may help to increase her independence and completeness, and bidet if able to afford. Pt again insistent that her family will be able to assist with all her ADL needs as needed. OT ADL-Bathing Comments OT Bathing Comments Pt sponge bath due to unable to get into the deep tub/ shower with her right leg wound. M5 OT- IP IADL's Start: 11/17/19 12:37 Freq: Status: Active Protocol: Document 11/17/19 12:37 [facility] (Rec: 11/17/19 12:46 [facility] [id number]) OT-Instrumental Activities of Daily Living Money Management Money Management No Deficits Identified Meal Preparation Meal Preparation Caregiver Provides Assist Evaporator Repairer Evaporator Repairer No Deficits Identified M9 OT- IP Assessment and Plan Start: 11/17/19 12:37 Freq: Status: Active Protocol: Document 11/17/19 12:37 [facility] (Rec: 11/17/19 12:46 [facility] [id number]) OT Summary Assessment and Plan Potential Rehabilitation Potential Good Analytic Complexity at Evaluation Low Summary Assessment Summary At this time, pt not wanting or needing OT for needs and states her family will be able to continue to assist for LB dressing, toileting , and IADL needs. Pt not wanting any LB dressing equipment or open to suggestions of toilet paper aid and/or bidet at this time. Therefore discharge pt for OT services at this time. PT to continue to follow pt for mobility needs. Discharge Recommendations OT Discharge Recommendations Home with Assistance Transportation Needs at Discharge Private Vehicle
--- NOTE | 2019-11-17 14:30 | DIET.PN ---
Dietary Progress Note Assessment: Ms. Castillo is a 44 YOF with a history significant for super morbid obesity, lymphedema, bilateral pulmonary embolism on long-term anticoagulation with warfarin, hypertension, moderate persistent asthma and obstructive sleep apnea who presents to the ER with worsening lymphedema with pain in the right lower extremity over the last 2-3 days. She has a chronic wound to her right lower leg for which she has been seen by wound care. She reports associated symptoms of fevers, chills and dizziness and diarrhea that has since resolved. She has been following a modified ketogenic diet with intermittent fasting for a few weeks and reports 4 lb weight loss. She endorses swimming regularly for exercise, but has not been able to because of lymphedema. Usual intake: Salad, lean protein, veg, fruit, eggs, some pasta. Cut out all breads and most other starches. HT: 170.18cm WT: 208kg UBW: 205kg (per pt report) BMI: 71.8 (morbid obese class III) Labs: Gluc: 120, 105 A1c: 5.1 CRP: 2.1 PT: 25.4 INR: 2.2 MNA: 13 Teddy: 15 Nutrition Diagnosis: Super morbid obesity r/t pt not ready for diet/lifestyle change aeb BMI more than normative standards (obese class III), overconsumption of high-fat and/or energy dense foods/beverages, estimated excessive energy intake, physical inactivity. Interventions: 1. Discussed barriers to weight loss. 2. Reviewed modified ketogenic meal plan and restrictions. Recommend f/u with outpatient nutrition therapy after discharge. 3. Discussed importance of physical activity for weight loss and maintenance. Pt agreeable. 4. Alli BID for wound healing. Diet Order: heart healthy (modified keto) EER: 2400 gale (12cal/kg for extreme weight loss), 166g pro (0.8g/kg) Monitoring/Evaluations: wt, PO's, lab, f/u for outpatient dietitian referral.
[2019-11-17] MEDS: WARFARIN 5 MG TABLET PO (17:05)
[2019-11-17] MEDS: levoFLOXacin 750 MG/150 ML PIGGYBACK 100 MG IV (22:38)
[2019-11-18] VITALS (8 sets, daily range): BP systolic 118–157; BP diastolic 56–67; PULSE 65–86; RESP 16–22; TEMP 36.1–36.8; O2SAT 92–97
[2019-11-18] MEDS: VANCOMYCIN 1,500 MG/300 ML FROZ.PIGGY 200 MG IV ×4 (02:37→21:08)
[2019-11-18 07:07] LABS: INR 2.2 (0.9-1.3); Prothrombin Time 25.4 SECONDS (10.1-12.7)
[2019-11-18] MEDS: HYDROCODONE/ACET 10/325 TABLET 2 TAB PO ×2 (08:12→19:24)
[2019-11-18] MEDS: SODIUM CHLORIDE 0.9% FLUSH 10 ML IV (08:13)
[2019-11-18] MEDS: MONTELUKAST 10 MG TABLET PO (08:13)
[2019-11-18] MEDS: NYSTATIN POWDER 15GM 1 APPLIC TOP ×3 (08:13→21:13)
[2019-11-18] MEDS: SILVER SULFADIAZINE 1% CREAM 25 GM 1 APPLIC TOP (08:15)
[2019-11-18] MEDS: ALBUTEROL/IPRATROPIUM 3 ML AMPUL INH (08:16)
[2019-11-18 11:50] LABS: Vancomycin Trough 11.7 ug/mL (10-20)
[2019-11-18] MEDS: PROPRANOLOL 10 MG TABLET 20 MG PO ×2 (13:42→21:52)
--- NOTE | 2019-11-18 14:02 | CM.DPC ---
DCP Continued: WENCESLAO/RN spoke with patient today about Care givers at home. patient states her mother helps her and her daughters help get her around. She utilizes par[facility]ransit for PT and OT appointments here at [facility] but needs help with rides to and from her wound care appointments. WENCESLAO/RN talked with patient about [employer] application and she stated she is interested in getting help with caregivers services. WENCESLAO/Rn sent in an expedited miller application for patient to have an assessment through home and community services. Patient updated and stated understanding that home and community services will either meet with patient here tomorrow or at home after d/c patient stated understanding. Jaqui Holden RN
[2019-11-18] MEDS: HYDROCODONE/ACET 10/325 TABLET 1 TAB PO (14:39)
--- NOTE | 2019-11-18 17:03 | PT-IP ANOTE ---
Pt not seen today due to staffing. Will follow up morning of 11/18.
--- NOTE | 2019-11-18 17:43 | P.PN_ITS ---
Subjective Subjective Date Patient Seen: 11/18/19 Interval history: Patient is a 44-year-old female admitted to the hospital with persistent lower extremity edema, right lower extremity cellulitis, and ulceration of the right posterior calf. She continues to have significant pain. However the pain medications are making her somewhat ?loopy?. She has tolerated the antibiotics without difficulty. Exam Vital Signs (past 8 hours): - 11/18/19 12:00 11/18/19 16:00 Temperature 97.9 F 97.6 F Pulse Rate 81 69 Respiratory Rate 17 20 Blood Pressure 157/67 H 135/60 Pulse Oximetry 93 97 Oxygen Delivery Method Room Air Oxygen Flow Rate 0 Narrative Exam Narrative: Morbidly obese female lying in bed in no obvious distress Lungs: Clear to auscultation Cardiac exam: Regular rate and rhythm normal S1-S2 Abdomen: Soft nontender nondistended Extremities: 4+ pitting edema bilaterally, the right posterior calf reveals an open ulcerated lesion that is wet, measures 21 x 16 cm, this does not penetrate to the bone, some area of fat identify however no muscle or bone identified Objective Labs Result Diagrams: 11/17/19 04:30 11/17/19 04:30 Labs: Laboratory Results - last 24 hr 11/18/19 11/18/19 06:47 11:15 PT 25.4 H INR 2.2 H Vancomycin Trough 11.7 Assessment & Plan Assessment & Plan narrative: Assessment & Plan narrative: This is a 44-year-old female patient with history of super morbid obesity, hypertension with concentric LV hypertrophy, history of bilateral PE in January of 2019, migraines asthma and obstructive sleep apnea who presents to the ER for worsening lymphedema, chronic wound right lower extremity and found to have cellulitis of the right lower extremity. 1. Cellulitis right lower extremity, present on admission, active -patient with new onset redness warmth and swelling of the right lower extremity and foot over the last 2 3 days, skin is red and warm to the touch surrounding nonhealing wound described below. -white blood count is 8.5, procalcitonin is less than 0.05, and lactic acid is 1.7. Will obtain a CRP. -multiple cultures revealed: / grew Pseudomonas 4/12 had Citrobacter Pseudomonas Staph aureus (MSSA) and Enterococcus 3/13 had Alcaligenes Klebsiella MSSA -repeat cultures obtained in the ED are unable to be identified -will repeat cultures this evening -based on prior sensitivities and infections will cover for both Pseudomonas and MSSA -Will refined antibiotics based on his culture and sensitivity -will place a PICC line for long-term IV antibiotic as this continues to be problematic and does not appear to heal -patient needs lymph uneven treatment which she is working on with the wound care clinic -if no significant improved would consider surgical consultation for possible intraoperative debridement of the wound 2. Nonhealing wound right lower extremity, chronic, ulcer present on admission, active -Patient is followed at the wound clinic for large nonhealing wound posterior lateral right lower leg, 8 x 10 cm weeping superficial skin breakdown without exposure underlying tissues. -will apply Silvadene thin layer and cover with Telfa daily and change as needed. -continue wound care as outlined by Dr. lane -will repeat culture as above 3. Lymphedema bilateral lower extremities, chronic, stable. -Patient with severe lymphedema bilateral lower extremities with skin discoloration changes and resulting in skin breakdown. -patient is scheduled for lymphedema clinic as an outpatient 4. Moderate persistent asthma, chronic, stable. -patient without complaints of shortness of breath and has no wheezing on exam. Oxygen saturation is 90/6% on room air. -patient reports using albuterol MDI daily and albuterol Atrovent nebulizer on an as-needed basis. -requested RT to consult evaluate and treat. -will continue patient's home regimen of inhaler and nebulizer therapy. 5. Essential hypertension, chronic, stable. -blood pressure upon arrival is well controlled at 134/80. -the patient takes propanolol for head which can improved blood pressure control as well.. 6. History of bilateral pulmonary embolism, on long-term anticoagulation, stable -patient is on warfarin 5 mg daily since large bilateral pulmonary embolism treated at [facility] in January of 2019. No complaints of chest pain or shortness of breath. -will obtain coagulation studies on admission labs since the patient has been started on levofloxacin. -will monitor INR daily with anticipation of elevation of INR with antibiotic treatment. -is the patient will be getting up PICC placement will hold Coumadin tonight, resume Coumadin at 5 mg daily after PICC placed 7. Obstructive sleep apnea, chronic, stable. -patient with LUCAS secondary to body habitus, uses CPAP at home. -requested respiratory therapy consult evaluate and treat. -ordered CPAP per protocol. 8. Supra morbid obesity, BMI 71.8, chronic, stable. -per documentation from family practice visit on 11/12/2019 patient has lost 4 lb. -patient with Betty in skin folds, ordered nystatin powder topically 3 times a day as needed. -patient is working on a dietary plan, requested dietitian consult. VTE prophylaxis: Silvio wrap bilateral lower extremities, anticoagulated on warfarin IV fluid: Saline lock Diet: Heart healthy Code status: FULL CODE, she designates her sister Sri Castillo to be her adrian rogate decision maker. The patient is admitted to the hospital for worsening lymphedema and nonhealing wound resulting in cellulitis. The patient is admitted as an inpatient with expected length of stay to be greater than 2 midnights. COVID-19 COVID-19 status: Negative Quality VTE Deep Vein Thrombosis/Pulmonary Embolism Present on Admission: Yes
[2019-11-18] MEDS: MEROPENEM 1 GM/50 ML PIGGYBACK IV (18:34)
[2019-11-19] VITALS (7 sets, daily range): BP systolic 112–130; BP diastolic 54–64; PULSE 59–68; RESP 16–21; TEMP 36.3–36.9; O2SAT 92–98
--- NOTE | 2019-11-19 00:57 | DI.RAD.S_ITS ---
PROCEDURE: XR CHEST FOR PICC 1V INDICATIONS: PICC line placement COMPARISON: [facility], CR, XR CHEST 1V, 02/06/2019, 10:32. FINDINGS: PICC was placed by the intravenous therapy team from the left side. Fluoroscopic spot film demonstrates the tip of PICC projecting to the area of left brachiocephalic vein. IMPRESSION: Tip of PICC projects to the area of left brachiocephalic vein and could be advanced approximately 8 centimeters. Dictated by: Lia Garcia MD, PhD on 11/19/2019 at 8:19 Approved by: Lia Garcia MD, PhD on 11/19/2019 at 8:20
[2019-11-19] MEDS: HYDROCODONE/ACET 10/325 TABLET 2 TAB PO (01:10)
[2019-11-19] MEDS: MEROPENEM 1 GM/50 ML PIGGYBACK IV ×2 (02:39→12:32)
[2019-11-19] MEDS: SODIUM CHLORIDE 0.9% FLUSH 10 ML IV ×2 (02:40→08:30)
[2019-11-19] MEDS: ALBUTEROL/IPRATROPIUM 3 ML AMPUL INH ×2 (02:42→08:12)
[2019-11-19] MEDS: VANCOMYCIN 1,500 MG/300 ML FROZ.PIGGY 200 MG IV (05:02)
[2019-11-19 05:31] LABS: Add Manual Diff / Slide Review NO; Basophils Absolute Auto 100 /uL (0-100); Basophils Percent Auto 1.3 % (0-2); Eosinophils Absolute Auto 100 /uL (0-450); Eosinophils Percent Auto 1.6 % (2-4); Hematocrit 32.3 % (36-46); Hemoglobin 10.2 g/dL (12.0-16.0); Lymphocytes Absolute Auto 2300 /uL (1100-4500); Lymphocytes Percent Auto 32.9 % (25-40); Mean Corpuscular HGB Conc 31.5 % (30-36); Mean Corpuscular Hemoglobin 24.2 PG (26-34); Mean Corpuscular Volume 76.7 fL (80-100); Monocytes Absolute Auto 500 /uL (0-900); Monocytes Percent Auto 7.5 % (3-14); Neutrophils Absolute Auto 4000 /uL (1500-7000); Neutrophils Percent Auto 56.7 % (50-75); Platelet Count 229 X10^3/uL (150-400); Red Blood Cell Count 4.22 X10^6/uL (4.0-5.2); Red Cell Distribution Width 22.1 % (11.6-14.8); White Blood Cell Count 7.1 X10^3/uL (4.5-11.0)
[2019-11-19 05:32] LABS: INR 2.2 (0.9-1.3); Prothrombin Time 25.4 SECONDS (10.1-12.7)
[2019-11-19 05:35] LABS: Blood Urea Nitrogen 11 mg/dL (7-17); Calcium 8.9 mg/dL (8.4-10.2); Carbon Dioxide 30 mmol/L (22-32); Chloride 102 mmol/L (98-107); Estimated Glomerular Filt Rate > 60.0 mL/min (>60); Glucose 109 mg/dL (70-100); HEMOLYSIS < 15 (0-50); Sodium 136 mmol/L (137-145)
[2019-11-19 07:08] LABS: Anisocytosis 3+
[2019-11-19] MEDS: PROPRANOLOL 10 MG TABLET 20 MG PO (08:34)
[2019-11-19] MEDS: SILVER SULFADIAZINE 1% CREAM 25 GM 1 APPLIC TOP (08:34)
[2019-11-19] MEDS: MONTELUKAST 10 MG TABLET PO (08:34)
[2019-11-19] MEDS: NYSTATIN POWDER 15GM 1 APPLIC TOP (08:35)
[2019-11-19] MEDS: ACETAMINOPHEN 325 MG TABLET 650 MG PO (08:36)
[2019-11-19] MEDS: HYDROCODONE/ACET 10/325 TABLET 1 TAB PO ×2 (09:28→10:38)
--- NOTE | 2019-11-19 10:31 | PT.IPTN ---
Current Diagnoses Cellulitis of right lower limb (11/16/19) Physical Therapy Treatment Note M2 PT-IP Current Condition Start: 11/17/19 10:35 Freq: NEEDED Status: Active Protocol: Document 11/17/19 11:31 AW (Rec: 11/17/19 12:08 AW [id number]) Physical Therapy Current Condition Current Condition Evaluation Date 11/17/19 Treatment Diagnosis RLE cellulitis; difficulty in walking Onset Date 11/15/19 M3 PT-IP Subjective Start: 11/17/19 10:35 Freq: NEEDED Status: Active Protocol: Document 11/19/19 09:58 MB (Rec: 11/19/19 10:30 MB [id number]) Subjective Physical Therapy Visit Type Type Treatment Note Visit Start Time 09:58 Visit Stop Time 10:21 Total Visit Minutes 23 Physical Therapy Visit Comments Patient Comments Rounds finishing up, PT checks on pt twice, cleared by nursing to see pt the second time. Pt on the phone upon arrival and then agreeable to PT. Therapy Pain Assessment Pain When Pain Assessed At Rest Pain Present Pain Present Pain Reported Location Right Lower Posterior Leg Intensity 7 Scale Used Numeric (0 - 10) Pain Management Techniques Distraction,Re-positioning, Timing of Activity with Medications M4 PT-IP Mobility and Gait Start: 11/17/19 10:35 Freq: NEEDED Status: Active Protocol: Document 11/19/19 09:58 MB (Rec: 11/19/19 10:30 MB [id number]) PT-Bed Mobility Assessment Supine to Sit Supine to Sit Moderate Assistance,1 Person Assistance Sit to Supine Sit to Supine Standby Assistance Scooting Scooting to Edge of Bed Standby Assistance PT-Transfer Assessment Sit to and From Stand Sit to and from Stand Contact Guard Assistance,2 Person Assistance,Use of Upper Extremities Transfer Ability Level of Assist Contact Guard Assistance Comments Mobility Comments Pt reports 6-7/10 right leg pain at rest in the bed. Her pain increases to 8/10 in right leg once standing to check orthostatics given low BP at rest and adm for light- headedness. Son assists with scooting pt's legs out to EOB and this is mod A. PT holds right arm so that forearm BP cuff does not move. Pt stands with left UE supported by sone and right supported by PT so that PT can get BP reading. Negative orthostatic BP but positive mild light-headedness getting up. Supine 116/56, 84 and standing 159/61, 97. Gait Assessment Gait Gait Assistance Required: Standby Assistance Distance (Feet) 20 Assistive Devices Assistive Device Straight Cane Gait Deviations General Gait Pattern Antalgic,Decreased Stride Length,Decreased Feet Clearance,Flexed Trunk,Lateral Trunk Lean,Wide Based Gait Factors Limiting Gait Function Factors Limiting Gait Function Decreased Activity Tolerance, Decreased Sensation,Decreased Strength,Pain,Poor Balance Comments Gait Comments Pt refuses socks, gait belt. Asks for cane. She can move sit to stand from EOB and gait train to BR for BM with superv to SBA. She is I for toileting. PT must step out to return to outpatient and nsg clears pt to stay on commode and pull help cord when done toileting. Pt agrees to pull cord and wait for nsg asst when done with toileting. PT-Balance Assessment Sitting Balance and Reactions Static Sitting Balance Ability Good Dynamic Sitting Balance Ability Good Standing Balance and Reactions Static Standing Balance Ability Fair Dynamic Standing Balance Ability Fair Device Used SPC M5 PT-IP Objective Assessments Start: 11/17/19 10:35 Freq: NEEDED Status: Active Protocol: Document 11/17/19 11:31 AW (Rec: 11/17/19 12:08 AW [id number]) Orientation Orientation/Cognition Level of Alertness Alert Orientation Name,Day of Week,Place, Situation Language Function Ability No Deficits Noted Safety Awareness Understands Safety Issues Memory Description No Deficits Noted Strength Lower Extremity Strength Assessment Bilaterally Impaired Hip 3-/5 Knee 4-/5 Ankle 4/5 Coordination Assessment Gross Coordination Gross Coordination WNL Sensation Assessment Sensation Gross Sensation Right LE Impaired,Left LE Impaired Sensation Description Hyperesthesia,Tingling Comments Sensation Comments Pt reports B LE tingling and hyperesthesia associated with fibromyalgia. M6 PT-IP Treatment Start: 11/17/19 10:35 Freq: NEEDED Status: Active Protocol: Document 11/19/19 09:58 MB (Rec: 11/19/19 10:31 MB [id number]) Physical Therapy Treatment Other Treatments Other Treatment Performed Therapeutic activities as described with bed mobility, orthostatic assessment, gait to BR and toileting M7 PT-IP Assessment and Plan Start: 11/17/19 10:35 Freq: NEEDED Status: Active Protocol: Document 11/19/19 09:58 MB (Rec: 07/22/20 10:30 MB [id number]) PT Summary Assessment and Plan Potential Rehabilitation Potential Fair Status of Condition at Evaluation Evolving Summary Impairments Pain,ROM,Strength,Balance, Sensation,Bed Mobility, Transfers,Gait,Activity Tolerance Assessment Summary Negative orthostatic testing today. Her mobility is limited but close to baseline. Plan is for her to d/c with her family. She states there are no stairs to enter home. Goals Bed Mobility Goal Contact Guard Assistance Transfer Goal Standby Assistance,Cane Gait Goal Standby Assistance,Cane Gait Distance 50 feet Days to Meet Goals 2 Frequency of Treatment Frequency Of Treatment Once a Day Treatment Plan Physical Therapy Treatment Plan Bed Mobility Training,Transfer Training,Gait Training, Therapeutic Exercise,Balance Retraining,Discharge Planning, Neuromuscular Re-ed,Manual Therapy Other Recommendations and Next Treatment bed mobility; ther ex for BLE Focus strength; progress gait with SPC (with chair follow as needed) Recommendations To Nursing Amount of Assist Needed 1 Person Assist Discharge Recommendations PT Discharge Recommendations Home with Assistance, Outpatient PT Other Discharge Recommendations resume OP PT for lymphedema management Transportation Needs at Discharge Private Vehicle
--- NOTE | 2019-11-19 11:42 | CM.DPNOTE ---
Addendum entered by PEGGY Hawk 11/19/19 14:21: ADD: Return call from [facility] stating that pt is covered for her IV-Abx for home infusion without need for prior auth and no out of pocket expense. PER confirmed with MD and calling [facility] that Dr. Roblero will follow pt after discharge for IV-Abx needs and for Merepenum 1g Q8 now for 2 weeks to start. Spoke to Rn and pt just receiving dose at 1300ish. PER got the script for orders for IV-Abx and faxed to [facility] and met with pt bedside who had just spoken to [facility] and she is agreeable with plan to d/c home with family assist and home infusion today and sister can provide transport around 1600 to home to be there in plenty of time for next dose around [phone]. SW updated RN and [facility]. PER called [facility] and updated that SNF not needed now and pt to go home. Plan: Patient to d/c home via family POV today around 1600 with [facility] to follow after d/c for next IV-Abx dosing and pt to continue with outpt Wound Clinic and PT/OT outpt. PEGGY Hawk Original Note: DCP IV-Abx planning Per MD, per Dr. Roblero Wound Consult he is recommending 3 weeks IV-Abx Merpenum 1g Q12 at discharge. Per MD, pt medically stable to d/c today to either home with infusion vs SNF. PER met bedside with pt and explained role and she confirms she lives at home with 11 yo son and preference would be home with home infusion if no out pocket expense but would be agreeable to PER making referrals to SNF and [facility] to determine best d/c plan. PER faxed clinicals and called [facility] with new referral and they will run pt's insurance and med to determine if they can get Medicare denial so that pt's Medicaid would cover the cost and will call SW back. PER called [facility] and made new referral and updated on pt needs and faxed clinicals to review as back up plan. Plan: SW to follow closely for [facility] and [facility] to review to determine home with home infusion vs SNF. PEGGY Hawk
--- NOTE | 2019-11-19 13:57 | PM.DS.1 ---
History of Present Illness History of Present Illness Date Patient Seen: 11/17/19 Chief complaint: lymphadema, states getting worse, dizzy,lighthead Narrative: Written by Ayaz QUEVEDO: Ms. Cady Castillo is a 44-year-old female with a history significant for super morbid obesity, lymphedema, concentric LV hypertrophy, bilateral pulmonary embolism on long-term anticoagulation with warfarin, hypertension, migraines, moderate persistent asthma and obstructive sleep apnea who presents to the ER with worsening lymphedema increasing and pain in the right lower extremity. The patient reports over the last 2-3 days she has developed redness swelling and more pain in the right foot. She has a chronic wound to the posterior lateral aspect of her right lower leg for which she has been seen by wound care. She reports associated symptoms of fevers and chills and dizziness and transient diarrhea that has since resolved. She has been on multiple courses of antibiotic and recently completed a course of amoxicillin. The patient reports that she works with PT and has lymphedema garments at home. The patient denies complaints of headaches, nasal congestion or sore throat. She reports no chest pain or palpitations. She has moderate persistent asthma and reports using her albuterol inhaler daily in uses albuterol Atrovent nebulizer as needed. She denies complaints of shortness of breath cough or wheezing presently. She denies complaints of epigastric or abdominal pain, nausea vomiting. She had diarrhea as noted above and denies urinary symptoms. She is presently on her menstrual cycle. Upon arrival to the ER the patient has a temperature of 99.4?, heart rate of 89, blood pressure 134/80, respirations 20 saturating 96% on room air. No imaging was completed. On laboratory analysis white count is 8.5, hemoglobin is 12.7, hematocrit of 38.1 and platelets of 288. Her electrolytes are all within normal limits. She has a BUN is 15 and creatinine 0.72. Her nonfasting glucose is 120. Her liver functions are all within normal limits she has an albumin of 4.3. Procalcitonin is less than 0.05, lactic acid is 1.7. COVID-19 screening is negative. In the ER the patient received 1 [place] 5 mg/325, levofloxacin 750 mg IV and vancomycin 1500 mg. The patient is admitted to the medicine service for cellulitis of the right lower extremity. Discharge Providers Provider Date of admission: 07/19/20 23:54 Discharge Date: 11/19/19 Primary care physician: Ivy Crystal DO Consults: 11/17/19 02:00 Consult to Dietitian, Adult Routine Comment: Reason For Exam: Super morbid obesity, BMI 72 Consult to Discharge Planning Routine Comment: Consult to Occupational Therapy Evaluate & Treat Comment: Super morbid obesity, lymphedema, impaired mobilit Physician Instructions: Evaluate and treat Consult to Physical Therapy Evaluate & Treat Comment: Super morbid obesity, lymphedema, impaired mobilit Physician Instructions: Evaluate and Treat 11/17/19 02:01 Consult to Respiratory Therapy Evaluate & Treat Comment: LUCAS, asthma Physician Instructions: Evaluate and treat 11/17/19 04:43 Consult to Wound Care Routine Comment: Current patient, RLE wound with cellulitis. Consulting Provider: [facility] Discharge provider: Roslyn Stiles DO Summary Hospital Course Discharge Diagnosis: 1. Chronic nonhealing wound of right lower extremity with surrounding cellulitis, secondary to lymphedema, present on admission. Active. 2. Moderate persistent asthma, chronic, present on admission. Stable. 3. Hypertension, chronic, present on admission. Stable. 4. History of bilateral pulmonary embolism on long-term anticoagulation, chronic, present on admission. Stable. 5. Obstructive sleep apnea, chronic, present on admission. Stable. 6. Supra morbid obesity, chronic, present on admission. Stable. Hospital Course: Cady Castillo is a 44-year-old female with a past medical history significant for super morbid obesity with secondary LUCAS on CPAP and probable OHS, hypertension with concentric LV hypertrophy, history of bilateral PE in January of 2019, migraine headaches, and asthma who presented to the ED for worsening lymphedema, chronic wound right lower extremity and surrounding cellulitis of the right lower extremity. 1. Chronic nonhealing wound of right lower extremity with surrounding cellulitis, secondary to lymphedema, present on admission. Active. -Patient with new onset erythema, warmth, and edema of right lower extremity surrounding nonhealing wound/ulceration for 2-3 days. -Initial WBC 8.5, procalcitonin is less than 0.05, and lactic acid is 1.7. -Previous multiple cultures revealed: 08/27/19 Pseudomonas 08/10/19 Citrobacter Pseudomonas, Staph aureus (MSSA) and Enterococcus 07/11/19 Alcaligenes Klebsiella MSSA -Repeat cultures obtained in the ED have no growth to date. Repeat cultures preliminarily have no growth. -Discussed case including wound care and further antibiotic treatment with wound care physician, Dr. Roblero, and will plan to cover for previous infectious organisms and continued meropenem 1 g every 8 hours for 2 weeks. Continue close outpatient wound care follow-up and lymphedema treatment with physical therapy (patient has not been compliant and has rescheduled frequently). If no significant improvement with long-term antibiotics may need to consider surgical debridement of the wound. 2. Moderate persistent asthma, chronic, present on admission. Stable. -Patient without complaints of shortness of breath or wheezing. -Continued respiratory therapy evaluation and treatment. Continued home albuterol and fluticasone inhalers. Ordered albuterol/ipratropium as needed every 6 hours for shortness of breath or wheezing. 3. Hypertension, chronic, present on admission. Stable. -Blood pressure upon arrival is well controlled at 134/80. -Continued home propanolol 20 mg twice daily. 4. History of bilateral pulmonary embolism on long-term anticoagulation, chronic, present on admission. Stable. -Patient has history of large bilateral pulmonary embolism treated at [facility] in January of 2019. No complaints of chest pain or shortness of breath. -Continued home warfarin 5 mg daily. Held warfarin day of PICC line placement and day of discharge. Continued to monitor INR closely. INR currently therapeutic at 2.2. -Recommend continued Coumadin clinic follow-up. 5. Obstructive sleep apnea, chronic, present on admission. Stable. -Patient with LUCAS and likely OHS secondary to body habitus, uses CPAP at home. -Continued respiratory therapy consult evaluation and treatment. Continued CPAP per RT protocol. 6. Supra morbid obesity, chronic, present on admission. Stable. -BMI 71.8. Per documentation from family medicine visit on 11/12/2019 the patient has lost 4 lbs. Although patient reports she is willing to change lifestyle including diet and exercise she was rather non-compliant throughout hospitalization with diet orders and discussion with wound care physician reveals that patient is noncompliant with overall care and would likely benefit from long-term nursing home for wound management. However, patient has a young 14-year-old son at home and would like to try to avoid long-term nursing home for now. -Patient with Betty intertrigo in skin folds and started and continued nystatin powder topically 3 times a day as needed. -Consulted dietitian we appreciate her time and recommendations. Exam Vital Signs (past 8 hours): - 11/19/19 08:00 11/19/19 08:12 11/19/19 08:17 Temperature 97.5 F L Pulse Rate 62 60 Respiratory Rate 19 18 Blood Pressure 122/58 L Pulse Oximetry 97 96 94 11/19/19 12:37 Temperature 98.4 F Pulse Rate 59 L Respiratory Rate 21 Blood Pressure 117/54 L Pulse Oximetry 98 Oxygen Delivery Method Room Air Oxygen Flow Rate 0 Narrative Exam Narrative: General: Middle-aged super obese female lying in bed and in no acute distress, well-developed, well-nourished, depressed mood, withdrawn, otherwise appropriately interactive. HEENT: Normocephalic, atraumatic. External ears without defect. Pupils equal, round, and reactive to light. Anicteric sclerae, moist conjunctivae, and no lid lag. Oropharynx free of erythema and cobble stoning with moist mucosa. Neck: Supple with full range of motion. No jugular venous distension. No bruits. No lymphadenopathy or thyromegaly. Cardiovascular: Regular rate and rhythm without murmurs, rubs, or gallops appreciated Pulmonary: Clear to auscultation bilaterally without crackles, wheezes, or rhonchi. Normal respiratory effort with no use of accessory muscles. Abdomen: Soft obese, panniculus, nontender, nondistended. No hepatosplenomegaly or masses appreciated. Betty intertrigo within skin folds. Extremities: No clubbing, cyanosis, or edema. Right lower extremity on posterior and distal 3rd of leg with large lesion that is indurated, erythematous, purple, and hemorrhagic appearing and now cool without warmth with serous drainage. Neurological: Cranial nerves grossly intact. Psychiatric: Depressed mood and flat affect. Withdrawn. Alert and oriented to person, place, and time. Objective Labs Result Diagrams: 11/19/19 05:00 11/19/19 05:00 Labs: Laboratory Results - last 24 hr 11/19/19 11/19/19 11/19/19 05:00 05:00 05:00 WBC 7.1 RBC 4.22 Hgb 10.2 L Hct 32.3 L MCV 76.7 L MCH 24.2 L MCHC 31.5 RDW 22.1 H Plt Count 229 Neut % (Auto) 56.7 Lymph % (Auto) 32.9 [place] % (Auto) 7.5 Eos % (Auto) 1.6 L Baso % (Auto) 1.3 Neut # (Auto) 4000 Lymph # (Auto) 2300 [place] # (Auto) 500 Eos # (Auto) 100 Baso # (Auto) 100 RBC Morphology See below Anisocytosis 3+ H PT 25.4 H INR 2.2 H Sodium 136 L Potassium 4.0 Chloride 102 Carbon Dioxide 30 BUN 11 Creatinine 0.58 Estimated GFR > 60.0 BUN/Creatinine Ratio 19.0 Glucose 109 H Calcium 8.9 Discharge Plan Discharge Plan Patient Disposition: Home Discharge comment: You are being discharged home. You have cellulitis of your right lower extremity and have been prescribed meropenem 1 g three times daily for 2 weeks. Please continue wound care dressing changes as instructed by your nurse. Please follow-up with wound care physician, Dr. Roblero, for continued treatment of your right leg. Please follow-up with physical therapy for treatment of lymphedema Sunday through as previously scheduled. Please follow-up with your primary care provider, Dr. Crystal, in the next 1 week regarding your hospitalization. Discharge orders & Medications Prescriptions: New meropenem-0.9% sodium chloride 1 gram/50 mL Piggyback 1 gm IV Q8H Qty: 42 RF: 0 clotrimazole 1 % cream 1 applictn TOP BID Qty: 14 RF: 0 Continued (DME) QUAD CANE Qty: 1 RF: 0 ipratropium-albuterol 3 ML solution for nebulization 3 ml INH Q6HP PRNQty: 90 RF: 1 warfarin 5 mg tablet 5 mg PO DAILY Qty: 60 RF: 3 montelukast 10 mg tablet 10 mg PO DAILY Qty: 30 RF: 1 propranolol 20 mg tablet 20 mg PO BID Qty: 60 RF: 5 (DME) GRAB BARS FOR SHOWER Qty: 3 RF: 0 Breo Ellipta 200-25 mcg/dose blister with device 1 inhalation INHALATION DAILY RF: 0 multivitamin Tablet 1 tab PO DAILY RF: 0 hydrocodone-acetaminophen 5-325 mg tablet 1 tab PO Q8H PRN (Reason: pain) Qty: 15 RF: 0 albuterol sulfate [Ventolin HFA] 90 mcg/actuation HFA aerosol inhaler 2 puff INHALATION Q4-6H PRN (Reason: Shortness Of Breath) Qty: 18 RF: 0 Disabled Parking Permit 1 dev miscellaneous DIRECTED RF: 0 nystatin 100,000 unit/gram powder 1 applictn TOP TID Qty: 60 RF: 3 Follow up/Referrals: Chidi Roblero MD [Physician] - 11/24/19 10:45 am Ivy Crystal DO [Primary Care Provider] - 1 Week (Office will call patient with f/u appointment) Diet/Activity/Treatments Diet: Carb-consistent/Diabetic, Low-fat, Low-sodium and Low-cholesterol Activity: Activity as tolerated with cane and physical therapy Skin/Wound/Dressing Care Report to your healthcare provider any signs of infection, such as:: chills, fever, night sweats, increased pain, unusual drainage and unusual redness Dressing: Right lower leg wound: 1. Clean wound with 0.9% saline solution and pat dry. Apply clotrimazole (antifungal cream) to wound. 2. Cut Aquacel Ag dressing to a size that is a little larger than the wound. Lay Aquacel Ag dressing directly on top of wound. 3. Secure in place with rolled gauze such as Kerlix or equivalent. 4. Retain dressings with a suitable lightweight stretch tubular bandage such as Tubifast or equivalent. 5. Change daily and prn saturation, leakage, detachment. Visit Report/Discharge Packet Instructions: DI for Cellulitis -- Adult, The Mediterranean Diet and Good Health, How To Perform RICE (Rest, Ice, Compress, Elevate) Visit Report Forms: Patient Portal/API, Stroke Signs & Symptoms Discharge Data Primary Care Provider: Ivy Crystal Discharges patient from system. Discharge Date/Time: 11/19/19 16:24 Quality VTE Deep Vein Thrombosis/Pulmonary Embolism Present on Admission: Yes
--- NOTE | 2019-11-19 16:19 | PC.NURSE ---
Patient given discharge instructions and instructed to follow up with PCP and wound care MD. Patient understands that she will be getting ABX infusions at home and doing daily or PRN dressing changes on RLE. Patient had no further questions. PICC dressing was changed and extra supplies for wound care sent with patient. Accompanied by daughter, belongings gathered and taken home by daughter.
== END 2019-11-19 16:24 | disposition home or self-care (01) | DRG 603 ==
LOC: ED 21:16 → AC 23:55 → ICU 11-17 02:10
PROVIDERS: Internal Medicine; Admitting Provider Nurse Practitioner Adult Health; Emergency Provider Emergency Medicine; PCP Family Medicine; Referring Provider Family Medicine; Visit Provider Nurse Practitioner Adult Health
DX: L03.115 Cellulitis of right lower limb (principal); Z68.45 Body mass index [BMI] 70 or greater, adult; L97.212 Non-pressure chronic ulcer of right calf with fat layer exposed; E66.01 Morbid (severe) obesity due to excess calories; J45.40 Moderate persistent asthma, uncomplicated; Z79.01 Long term (current) use of anticoagulants; I10 Essential (primary) hypertension; E78.1 Pure hyperglyceridemia; G47.33 Obstructive sleep apnea (adult) (pediatric); I89.0 Lymphedema, not elsewhere classified; Z87.891 Personal history of nicotine dependence; Z86.711 Personal history of pulmonary embolism
CPT/HCPCS: 36415; 36569; 36592; 80048; 80053; 80202; 81001; 83036; 83605; 84145; 85025; 85610; 85730; 86140; 87040; 87070; 87075; 87077; 87147; 87185; 87186; 87205; 87635; 87797; 94640; 94760; 94762; 94770; 96365; 96366; 97161; 97530; 97535; 99284; A9270; J1642; J1956

== ENCOUNTER → 2019-11-24 11:59 | Outpatient (CLI) | payer MEDICARE, MEDICAID, SELFPAY ==
[2019-11-17 02:44] VITALS: BMI 71.8
== END ==
PROVIDERS: PCP Family Medicine; Referring Provider Family Medicine; Visit Provider Family Medicine
DX: I89.0 Lymphedema, not elsewhere classified (principal); L97.811 Non-pressure chronic ulcer of other part of right lower leg limited to breakdown of skin; Z79.01 Long term (current) use of anticoagulants; E66.8 Other obesity; L03.115 Cellulitis of right lower limb
CPT/HCPCS: 99214

== ENCOUNTER → 2019-12-01 13:49 | Outpatient (CLI) | payer MEDICARE, MEDICAID, SELFPAY ==
[2019-11-17 02:44] VITALS: BMI 71.8
== END ==
PROVIDERS: PCP Family Medicine; Referring Provider Family Medicine; Visit Provider Family Medicine
DX: I89.0 Lymphedema, not elsewhere classified (principal); L97.811 Non-pressure chronic ulcer of other part of right lower leg limited to breakdown of skin; Z79.01 Long term (current) use of anticoagulants; E66.8 Other obesity; L08.9 Local infection of the skin and subcutaneous tissue, unspecified; Z79.2 Long term (current) use of antibiotics
CPT/HCPCS: 99213

== ENCOUNTER 2019-12-03 14:36 | Emergency (ER) | payer MEDICARE, MEDICAID, SELFPAY ==
[2019-11-17 02:44] VITALS: BMI 71.8
[2019-12-03 15:02] VITALS: BP 156/69; PULSE 77; RESP 20; TEMP 36.6; O2SAT 98; BMI 72.6
--- NOTE | 2019-12-03 15:08 | DI.US.S_ITS ---
PROCEDURE: US PERIPH VENOUS UP EXTREM LT INDICATIONS: PICC SWELLING TECHNIQUE: Real-time imaging, as well as color and pulse Doppler interrogation, was performed of the left upper extremity deep veins from the inferior neck to the antecubital fossa. COMPARISON: [facility], CR, XR CHEST FOR PICC 1V, 11/19/2019, 2:20. FINDINGS: The internal jugular vein, visualized portions of the subclavian vein, axillary, veins are free of intraluminal thrombus. Left basilic vein is not well seen. The brachial vein is probably seen and appears patent. The cephalic vein is patent. Where physically possible, the veins are normally compressible. Color and pulse Doppler demonstrate normal intraluminal flow, with expected phasicity and pulsatility. IMPRESSION: Limited exam due to acoustic windows. Limited visibility of the brachial vein and basilic vein is not visualized. No deep venous thrombosis is identified in the left upper extremity. Dictated by: Reid Kirby M.D. on 12/03/2019 at 16:01 Approved by: Reid Kirby M.D. on 12/03/2019 at 16:04
[2019-12-03 15:10] VITALS: PULSE 74; RESP 17; O2SAT 96
--- NOTE | 2019-12-03 15:16 | ED.UPPEXIN ---
HPI - Extremity Injury (Upper) General Chief Complaint: Shortness of Breath/Dyspnea Stated Complaint: concerns of a blood clot Time Seen by Provider: 12/03/19 14:49 Source: patient Mode of arrival: Wheelchair Limitations: no limitations History of Present Illness HPI narrative: The patient is a morbidly obese female with history of pulmonary embolisms on Coumadin presenting with left arm swelling. She is currently being treated for lymphedema of her right leg by wound care and has a PICC line in her left arm. She has noticed some swelling in her left arm for the past couple of days. She also feels like she might be more short of breath but denies any chest pain. She continues to receive IV antibiotics for her lymphedema which she says is improving MD complaint: injury to: left Onset (ago): day(s) Related Data Home Medications Medication Instructions Recorded Confirmed Disabled Parking Permit 1 dev MISCELLANEOUS DIRECTED 02/06/19 11/17/19 fluticasone furoate 200 1 inhalation INHALATION DAILY 08/21/19 11/17/19 mcg-vilanterol 25 mcg/dose inhalation powder multivitamin 1 tab PO DAILY 08/21/19 11/17/19 Previous Rx's Medication Instructions Recorded ipratropium-albuterol 3 ml INH Q6HP PRN #90 ea 04/17/16 QUAD CANE #1 ea 05/08/18 propranolol 20 mg tablet 20 mg PO BID #60 tab 02/18/19 GRAB BARS FOR SHOWER #3 each 04/21/19 warfarin 5 mg tablet 5 mg PO DAILY #60 tab 10/13/19 montelukast 10 mg tablet 10 mg PO DAILY #30 tab 11/10/19 albuterol sulfate 90 mcg/actuation 2 puff INHALATION Q4-6H PRN #18 11/12/19 aerosol inhaler gram hydrocodone 5 mg-acetaminophen 325 1 tab PO Q8H PRN #15 tab 11/12/19 mg tablet clotrimazole 1 applictn TOP BID #14 gram 11/19/19 meropenem-0.9% sodium chloride 1 gm IV Q8H #42 ea 11/19/19 nystatin 1 applictn TOP TID #60 gram 11/19/19 Allergies Allergy/AdvReac Type Severity Reaction Status Date / Time latex Allergy Rash Verified 10/17/19 08:57 oxycodone [OXYCODONE] AdvReac Intermediate Irritabilit Verified 10/17/19 08:57 y Review of Systems Review of Systems ROS Unobtainable: All systems reviewed & are unremarkable except as noted in HPI and below Constitutional Constitutional: Denies chills, Denies fever(s), Denies lethargy and Denies weakness ENT Ears, Nose, Mouth, and Throat: Denies dizziness Cardiovascular Cardiovascular: Denies chest pain, Denies syncope, Denies irregular heart rhythm, Denies lightheadedness, Denies palpitations, Reports dyspnea on exertion and Denies orthopnea Respiratory Respiratory: Denies cough, Denies hemoptysis, Denies pain on inspiration, Denies pain with cough and Reports dyspnea on exertion Gastrointestinal Gastrointestinal: Denies abdominal pain, Denies change in bowel habits, Denies diarrhea, Denies nausea and Denies vomiting Musculoskeletal Musculoskeletal: Reports as per HPI Integumentary/Breasts Skin/Breast: Denies pruritus, Denies erythema, Denies rash and Denies wounds Neurologic Neurologic: Denies dizziness, Denies syncope and Denies weakness Endocrine Endocrine: Denies palpitations Patient History Medical History Concentric left ventricular hypertrophy (Acute ~05/2017) Hypertension (Chronic) Hypertriglyceridemia (Inactive) Kidney stones (Acute) Lymphedema (Inactive) Migraines (Chronic) Moderate persistent asthma (Acute) Ovarian cyst (Resolved 03/28/15) Pneumonia (Resolved 2008) Sleep apnea (Chronic) Wound of right lower extremity (Inactive) Surgical History History of (Acute) History of esophagogastroduodenoscopy (EGD) (Acute ~04/2015) History of hernia repair (Acute) History of laparoscopic appendectomy (Resolved 03/28/15) History of ovarian cystectomy (Resolved) History of placement of ear tubes (Resolved) History of tonsillectomy (Resolved) Family History Father No problems noted. Mother Atrial fibrillation Grandfather No problems noted. Grandmother No problems noted. Grandfather No problems noted. Grandmother No problems noted. Sister No problems noted. Social History household members: family Smoking Status: Former smoker Tobacco: How many years used: 17 second hand exposure: No alcohol intake: former Smoking Status: Former smoker alcohol intake frequency: 0-2 drinks per day Substance Use Type: does not use Exam Initial Vital Signs Initial Vital Signs: Vital Signs Temperature 97.9 F 12/03/19 15:02 Pulse Rate 77 12/03/19 15:02 Respiratory Rate 20 12/03/19 15:02 Blood Pressure 156/69 H 12/03/19 15:02 Pulse Oximetry 98 12/03/19 15:02 GENERAL: Obese female in no acute distress and in no acute distress. HEENT: Head atraumatic,EOMI, pupils reactive, face symmetric, moist mucous membranes CARDIOVASCULAR: Regular rate and rhythm without murmurs, rubs or gallops. RESPIRATORY: Breath sounds equal bilaterally, no wheezes rales or rhonchi. ABDOMEN: Soft, nontender. Normoactive bowel sounds all 4 quadrants. No guarding or rebound. EXTREMITIES: Normal range of motion, no clubbing or edema. Neurovascularly intact. PICC line noted in left arm no erythema or sign of infection swelling is noted of the left arm NEUROLOGICAL: Alert and oriented x4.Normal gait and speech. Seed Packer strength equal bilaterally SKIN: Warm, dry, no laceration, no petechiae, no rashes or lesions. No erythema of left arm right leg is covered in dressing Course Orders Ordered: ED Orders 12/03/19 15:08 periph venous up extrem lt Stat 12/03/19 15:24 Basic Metabolic Panel Stat Complete Blood Count AUTO DIFF Stat Prothrombin Time INR Stat Vital Signs Vital signs: Vital Signs - 8 hr 12/03/19 15:02 12/03/19 15:10 12/03/19 15:30 Temperature 97.9 F Pulse Rate 77 74 73 Respiratory Rate 20 17 24 Blood Pressure 156/69 H Pulse Oximetry 98 96 94 12/03/19 16:00 12/03/19 16:23 12/03/19 16:30 Temperature Pulse Rate 72 75 74 Respiratory Rate 19 22 23 Blood Pressure 145/65 H Pulse Oximetry 96 95 95 MDM - Extremity Injury (Upper) Lab Data Attestation: I reviewed the patient's lab results. Result diagrams: 12/03/19 15:24 12/03/19 15:24 Labs: Lab Results 12/03/19 12/03/19 12/03/19 Range/Units 15:24 15:24 15:24 WBC 8.1 (4.5-11.0) X10^3/uL RBC 4.94 (4.0-5.2) X10^6/uL Hgb 12.4 (12.0-16.0) g/dL Hct 38.3 (36-46) % MCV 77.5 L (80-100) fL MCH 25.0 L (26-34) PG MCHC 32.3 (30-36) % RDW 21.3 H (11.6-14.8) % Plt Count 227 (150-400) X10^3/uL Neut % (Auto) 63.6 (50-75) % Lymph % (Auto) 27.3 (25-40) % [place] % (Auto) 6.4 (3-14) % Eos % (Auto) 2.6 (2-4) % Baso % (Auto) 0.1 (0-2) % Neut # (Auto) 5200 (0677-8113) /uL Lymph # (Auto) 2200 (6522-9203) /uL [place] # (Auto) 500 (0-900) /uL Eos # (Auto) 200 (0-450) /uL Baso # (Auto) 0 (0-100) /uL RBC Morphology Not Reportable Anisocytosis 1+ H PT 26.2 H (10.1-12.7) SECONDS INR 2.3 H (0.9-1.3) Sodium 137 (137-145) mmol/L Potassium 4.4 (3.4-5.1) mmol/L Chloride 102 (98-107) mmol/L Carbon Dioxide 28 (22-32) mmol/L BUN 14 (7-17) mg/dL Creatinine 0.61 (0.52-1.04) mg/dL Estimated GFR > 60.0 (>60) mL/min BUN/Creatinine Ratio 23.0 H (6-22) Glucose 97 (70-100) mg/dL Calcium 9.9 (8.4-10.2) mg/dL Imaging Data US - DVT: Radiologist's Impression: PROCEDURE: US PERIPH VENOUS UP EXTREM LT INDICATIONS: PICC SWELLING TECHNIQUE: Real-time imaging, as well as color and pulse Doppler interrogation, was performed of the left upper extremity deep veins from the inferior neck to the antecubital fossa. COMPARISON: [facility], CR, XR CHEST FOR PICC 1V, 11/19/2019, 2:20. FINDINGS: The internal jugular vein, visualized portions of the subclavian vein, axillary, veins are free of intraluminal thrombus. Left basilic vein is not well seen. The brachial vein is probably seen and appears patent. The cephalic vein is patent. Where physically possible, the veins are normally compressible. Color and pulse Doppler demonstrate normal intraluminal flow, with expected phasicity and pulsatility. IMPRESSION: Limited exam due to acoustic windows. Limited visibility of the brachial vein and basilic vein is not visualized. No deep venous thrombosis is identified in the left upper extremity. Dictated by: Reid Kirby M.D. on 12/03/2019 at 16:01 Approved by: Reid Kirby M.D. on 12/03/2019 at 16:04 [facility] Narrative Medical decision making narrative: Patient's INR is therapeutic ultrasound does not show any deep vein thrombosis although not all veins are thoroughly visualized. Arm does not appear to be infected. At this time recommend continuing Coumadin no need to pull PICC line follow-up with PCP. Discharge Plan Departure Patient Disposition: Home Clinical Impression: Left arm swelling Discharge Date/Time: 12/03/19 16:55 Activity Restrictions/Additional Instructions: *You have been diagnosed with left arm swelling *What to do: No blood clot is noted. Your Coumadin level is therapeutic and no adjustments need to be made. No sign of infection of your arm this time either no need for further antibiotics *Continue to take medications as directed *Follow up with your primary care provider in 2-3 days *Return to ER if you should have increased swelling pain, or shortness of breath or any new, worsening or concerning symptoms Prescriptions: No Action (DME) QUAD CANE Qty: 1 RF: 0 ipratropium-albuterol 3 ML solution for nebulization 3 ml INH Q6HP PRNQty: 90 RF: 1 warfarin 5 mg tablet 5 mg PO DAILY Qty: 60 RF: 3 montelukast 10 mg tablet 10 mg PO DAILY Qty: 30 RF: 1 propranolol 20 mg tablet 20 mg PO BID Qty: 60 RF: 5 (DME) GRAB BARS FOR SHOWER Qty: 3 RF: 0 Breo Ellipta 200-25 mcg/dose blister with device 1 inhalation INHALATION DAILY RF: 0 multivitamin Tablet 1 tab PO DAILY RF: 0 hydrocodone-acetaminophen 5-325 mg tablet 1 tab PO Q8H PRN (Reason: pain) Qty: 15 RF: 0 albuterol sulfate [Ventolin HFA] 90 mcg/actuation HFA aerosol inhaler 2 puff INHALATION Q4-6H PRN (Reason: Shortness Of Breath) Qty: 18 RF: 0 Disabled Parking Permit 1 dev miscellaneous DIRECTED RF: 0 meropenem-0.9% sodium chloride 1 gram/50 mL Piggyback 1 gm IV Q8H Qty: 42 RF: 0 nystatin 100,000 unit/gram powder 1 applictn TOP TID Qty: 60 RF: 3 clotrimazole 1 % cream 1 applictn TOP BID Qty: 14 RF: 0 Referrals: Ivy Crystal DO [Primary Care Provider] -
[2019-12-03 15:30] VITALS: PULSE 73; RESP 24; O2SAT 94
[2019-12-03 15:30] LABS: Add Manual Diff / Slide Review NO; Basophils Absolute Auto 0 /uL (0-100); Basophils Percent Auto 0.1 % (0-2); Eosinophils Absolute Auto 200 /uL (0-450); Eosinophils Percent Auto 2.6 % (2-4); Hematocrit 38.3 % (36-46); Hemoglobin 12.4 g/dL (12.0-16.0); Lymphocytes Absolute Auto 2200 /uL (1100-4500); Lymphocytes Percent Auto 27.3 % (25-40); Mean Corpuscular HGB Conc 32.3 % (30-36); Mean Corpuscular Volume 77.5 fL (80-100); Monocytes Absolute Auto 500 /uL (0-900); Monocytes Percent Auto 6.4 % (3-14); Neutrophils Absolute Auto 5200 /uL (1500-7000); Neutrophils Percent Auto 63.6 % (50-75); Platelet Count 227 X10^3/uL (150-400); Red Blood Cell Count 4.94 X10^6/uL (4.0-5.2); Red Cell Distribution Width 21.3 % (11.6-14.8); White Blood Cell Count 8.1 X10^3/uL (4.5-11.0)
[2019-12-03 15:37] LABS: INR 2.3 (0.9-1.3); Prothrombin Time 26.2 SECONDS (10.1-12.7)
[2019-12-03 15:42] LABS: Blood Urea Nitrogen 14 mg/dL (7-17); Calcium 9.9 mg/dL (8.4-10.2); Carbon Dioxide 28 mmol/L (22-32); Chloride 102 mmol/L (98-107); Estimated Glomerular Filt Rate > 60.0 mL/min (>60); Glucose 97 mg/dL (70-100); HEMOLYSIS 16 (0-50); Potassium 4.4 mmol/L (3.4-5.1); Sodium 137 mmol/L (137-145)
[2019-12-03 15:43] LABS: Anisocytosis 1+
[2019-12-03 16:00] VITALS: PULSE 72; RESP 19; O2SAT 96
[2019-12-03 16:23] VITALS: BP 145/65; PULSE 75; RESP 22; O2SAT 95
[2019-12-03 16:30] VITALS: PULSE 74; RESP 23; O2SAT 95
== END 2019-12-03 16:55 | disposition home or self-care (01) ==
PROVIDERS: Emergency Provider Emergency Medicine; PCP Family Medicine
DX: R22.32 Localized swelling, mass and lump, left upper limb (principal); E66.01 Morbid (severe) obesity due to excess calories; Z79.01 Long term (current) use of anticoagulants; Z86.711 Personal history of pulmonary embolism
CPT/HCPCS: 36415; 80048; 85025; 85610; 93971; 99284; J1642

== ENCOUNTER → 2019-12-09 12:51 | Outpatient (CLI) | payer MEDICARE, MEDICAID, SELFPAY ==
[2019-11-17 02:44] VITALS: BMI 71.8
== END ==
PROVIDERS: PCP Family Medicine; Referring Provider Family Medicine; Visit Provider Family Medicine
DX: I89.0 Lymphedema, not elsewhere classified (principal); L97.811 Non-pressure chronic ulcer of other part of right lower leg limited to breakdown of skin; Z79.01 Long term (current) use of anticoagulants; E66.8 Other obesity; R19.7 Diarrhea, unspecified
CPT/HCPCS: 97597; 97598; 99213

== ENCOUNTER → 2019-12-16 13:17 | Outpatient (CLI) | payer MEDICARE, MEDICAID, SELFPAY ==
[2019-11-17 02:44] VITALS: BMI 71.8
== END ==
PROVIDERS: PCP Family Medicine; Referring Provider Family Medicine; Visit Provider Family Medicine
DX: I89.0 Lymphedema, not elsewhere classified (principal)
CPT/HCPCS: 87070; 87075; 87077; 87147; 87186; 87205; 99214

== ENCOUNTER 2019-12-16 14:26 | Emergency (ER) | payer MEDICARE, MEDICAID, SELFPAY ==
[2019-11-17 02:44] VITALS: BMI 71.8
[2019-12-16] VITALS (14 sets, daily range): BP systolic 113–150; BP diastolic 54–93; PULSE 74–82; RESP 17–25; TEMP 36.6; O2SAT 90–95
--- NOTE | 2019-12-16 14:55 | DI.RAD.S_ITS ---
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 Please wait for call. TECHNIQUE: One view of the chest was acquired. COMPARISON: [facility], ELVIRA, XR CHEST FOR PICC 1V, 11/19/2019, 2:20. [facility], CR, XR CHEST 1V, 02/06/2019, 10:32. FINDINGS: Surgical changes and devices: Right-sided PICC with the catheter tip terminating at the lower 3rd of the SVC. Left-sided PICC has been removed. Visualized lungs and pleura: Decrease in the perihilar opacity visualized. No pleural effusions or pneumothorax. Mediastinum: Mediastinal contours appear normal. Heart size is normal. Bones and chest wall: No suspicious bony lesions. Overlying soft tissues appear unremarkable. IMPRESSION: Right-sided PICC terminates in the lower 3rd of the SVC. No pneumothorax. Dictated by: Reid Kirby M.D. on 12/16/2019 at 16:50 Approved by: Reid Kirby M.D. on 12/16/2019 at 16:51
[2019-12-16 17:02] LABS: Add Manual Diff / Slide Review NO; Basophils Absolute Auto 100 /uL (0-100); Basophils Percent Auto 1.2 % (0-2); Eosinophils Absolute Auto 100 /uL (0-450); Eosinophils Percent Auto 1.6 % (2-4); Hematocrit 39.1 % (36-46); Hemoglobin 12.6 g/dL (12.0-16.0); Lymphocytes Absolute Auto 2100 /uL (1100-4500); Lymphocytes Percent Auto 25.1 % (25-40); Mean Corpuscular HGB Conc 32.3 % (30-36); Mean Corpuscular Hemoglobin 25.3 PG (26-34); Mean Corpuscular Volume 78.3 fL (80-100); Monocytes Absolute Auto 500 /uL (0-900); Monocytes Percent Auto 6.1 % (3-14); Neutrophils Absolute Auto 5600 /uL (1500-7000); Platelet Count 251 X10^3/uL (150-400); Red Blood Cell Count 4.99 X10^6/uL (4.0-5.2); White Blood Cell Count 8.5 X10^3/uL (4.5-11.0)
[2019-12-16 17:10] LABS: INR 2.5 (0.9-1.3); Prothrombin Time 28.6 SECONDS (10.1-12.7)
[2019-12-16 17:12] LABS: PTT Partial Thromboplastin Tim 46 SECONDS (26.4-36.2)
[2019-12-16 17:17] LABS: Alanine Aminotransferase 32 IU/L (<35); Albumin 4.3 g/dL (3.5-5.0); Albumin Globulin Ratio 1.2 (1.0-2.8); Alkaline Phosphatase 60 U/L (38-126); Aspartate Aminotransferase 34 IU/L (14-36); Bilirubin Total 0.5 mg/dL (0.2-1.3); Blood Urea Nitrogen 12 mg/dL (7-17); Calcium 9.7 mg/dL (8.4-10.2); Carbon Dioxide 29 mmol/L (22-32); Chloride 101 mmol/L (98-107); Estimated Glomerular Filt Rate > 60.0 mL/min (>60); Globulin 3.5 g/dL (1.7-4.1); Glucose 96 mg/dL (70-100); HEMOLYSIS < 15 (0-50); Lactate (Lactic Acid) 1.3 mmol/L (0.7-2.1); Lipase 68 U/L (23-300); Potassium 4.2 mmol/L (3.4-5.1); Sodium 138 mmol/L (137-145); Total Protein 7.8 g/dL (6.3-8.2)
[2019-12-16 17:39] LABS: Procalcitonin < 0.05 ng/mL (<0.5)
[2019-12-16 18:07] LABS: Amorphous Sediment Urine 1+; Bacteria Urine Few (2-10); RBC Urine 10-30/HPF (0-5/HPF); Squamous Epithelial Cell Urine 1-5 /HPF (0-5/HPF); WBC Urine 5-10/HPF (0-5/HPF)
[2019-12-16 18:08] LABS: Culture Indicated Urine Specimen Cultured; Mucus Urine 1+ (Negative)
--- NOTE | 2019-12-16 18:11 | ED_ITS ---
HPI - Skin/Abscess/Foreign Bdy General Chief complaint: Skin/Abscess/Foreign Body Stated complaint: wound that isn't healing,lymphodema Time Seen by Provider: 12/16/19 18:02 Source: patient Mode of arrival: Ambulatory Limitations: no limitations History of Present Illness HPI narrative: Patient is a 44-year-old female. Obese. To 110 kg. Was sent to the emergency department today from her wound care clinic visit for concerns of recurrent/worsening of cellulitis in the posterior aspect of her right lower extremity. Patient has been dealing with a cellulitis in this area for the past several months. Has had multiple cultures of the area that have grown out multiple different bacteria to include Klebsiella, Citrobacter, Pseudomonas among others. Most recently she was admitted to our facility here from 11/16 through 11/19 2019 where she was subsequently discharged home with 2 weeks of IV meropenem through a PICC line. She completed this course of antibiotics. She has been followed by wound care. She has been off antibiotics now for approximately 1 week. Her PICC line was subsequently removed. She has been using triple antibiotic ointment over the area. Over the past several days she has developed severe wound pain, increasing edema, redness and drainage and warmth from the area. This is similar to what she had experienced prior to at last admission. Patient denies any fevers. 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 Related Data Home Medications Medication Instructions Recorded Confirmed Disabled Parking Permit 1 dev MISCELLANEOUS DIRECTED 02/06/19 12/16/19 fluticasone furoate 200 1 inhalation INHALATION DAILY 08/21/19 12/16/19 mcg-vilanterol 25 mcg/dose inhalation powder multivitamin 1 tab PO DAILY 08/21/19 12/16/19 ipratropium-albuterol 3 ml INH Q6HP PRN 12/16/19 12/16/19 warfarin See Rx Instructions .ROUTE .COMPLEX 12/16/19 12/16/19 Previous Rx's Medication Instructions Recorded QUAD CANE #1 ea 05/08/18 propranolol 20 mg tablet 20 mg PO BID #60 tab 02/18/19 GRAB BARS FOR SHOWER #3 each 04/21/19 montelukast 10 mg tablet 10 mg PO DAILY #30 tab 11/10/19 albuterol sulfate 90 mcg/actuation 2 puff INHALATION Q4-6H PRN #18 11/12/19 aerosol inhaler gram hydrocodone 5 mg-acetaminophen 325 1 tab PO Q8H PRN #15 tab 11/12/19 mg tablet clotrimazole 1 applictn TOP BID #14 gram 11/19/19 nystatin 1 applictn TOP TID #60 gram 11/19/19 Allergies Allergy/AdvReac Type Severity Reaction Status Date / Time latex Allergy Rash Verified 10/17/19 08:57 oxycodone [OXYCODONE] AdvReac Intermediate Irritabilit Verified 10/17/19 08:57 y Review of Systems Constitutional Constitutional: Denies fever(s) ENT Ears, Nose, Mouth, and Throat: Denies sore throat Cardiovascular Cardiovascular: Denies chest pain and Denies dyspnea Respiratory Respiratory: Denies dyspnea Gastrointestinal Gastrointestinal: Denies abdominal pain, Denies nausea and Denies vomiting Musculoskeletal Comments: Right leg pain Integumentary/Breasts Comments: Redness and swelling right lower extremity Neurologic Neurologic: Denies behavioral changes Psychiatric Psychiatric: Denies behavioral changes Hematologic/Lymphatic Comments: Is on anticoagulation secondary to history of pulmonary embolism Allergic/Immunologic Allergic/Immunologic: Denies urticaria Patient History Medical History Concentric left ventricular hypertrophy (Acute ~05/2017) Hypertension (Chronic) Hypertriglyceridemia (Inactive) Kidney stones (Acute) Lymphedema (Inactive) Migraines (Chronic) Moderate persistent asthma (Acute) Ovarian cyst (Resolved 03/28/15) Pneumonia (Resolved 2008) Restrictive lung disease (Acute) Sleep apnea (Chronic) Wound of right lower extremity (Inactive) Surgical History History of (Acute) History of esophagogastroduodenoscopy (EGD) (Acute ~04/2015) History of hernia repair (Acute) History of laparoscopic appendectomy (Resolved 03/28/15) History of ovarian cystectomy (Resolved) History of placement of ear tubes (Resolved) History of tonsillectomy (Resolved) Family History Father No problems noted. Mother Atrial fibrillation Grandfather No problems noted. Grandmother No problems noted. Grandfather No problems noted. Grandmother No problems noted. Sister No problems noted. Social History household members: family Smoking Status: Former smoker Tobacco: How many years used: 17 second hand exposure: No alcohol intake: former Smoking Status: Former smoker alcohol intake frequency: other Substance Use Type: does not use Exam Initial Vital Signs Initial Vital Signs: Vital Signs Temperature 97.9 F 12/16/19 14:31 Pulse Rate 79 12/16/19 14:31 Respiratory Rate 18 12/16/19 14:31 Blood Pressure 113/54 L 12/16/19 14:31 Pulse Oximetry 95 12/16/19 14:31 Const General: cooperative Nutritional Appearance: obese Limitations: mental status not altered HENMT Head: normal to inspection and normocephalic Resp Effort & Inspection: normal respiratory effort Cardio Rate: regular rate GI Inspection: non-distended Palpation: soft Skin Other: Patient has a wound approximately 10 cm x 15 cm on the posterior distal aspect of the right lower extremity over the area of the Achilles tendon. There is excoriation, warmth, drainage and surrounding erythema. Neuro General: patient alert, patient awake and patient oriented x3 Speech: speech normal Sensory Exam: no sensory deficits noted Extrem General: capillary refill normal Psych Appearance: grossly normal Course Orders Ordered: ED Orders 12/16/19 14:54 RT Consult Eval and Treat Now 12/16/19 14:55 XR chest for PICC 1V Stat 12/16/19 16:45 Complete Blood Count AUTO DIFF Stat Comprehensive Metabolic Panel Stat Lactate (Lactic Acid) Stat Lipase Stat Partial Thromboplastin Time Stat Procalcitonin Stat Prothrombin Time INR Stat 12/16/19 17:22 Urine Culture Stat Urine Microscopic Stat 12/16/19 18:14 Blood Culture Stat Discontinued Medications Hydromorphone HCl (Dilaudid) 1 mg IV NOW ONE Stop: 12/16/19 19:45 Last Admin: 12/16/19 19:54 Dose: 1 mg Documented by: SYLVAIN Meropenem (Merrem) 1 gm in 50 mls @ 100 mls/hr IV NOW ONE Stop: 12/16/19 18:48 Last Infusion: 12/16/19 19:14 Dose: 0 mls/hr Documented by: Admin: 12/16/19 18:31 Dose: 100 mls/hr Documented by: GLEN Morphine Sulfate (Morphine) 4 mg IV NOW ONE Stop: 12/16/19 23:17 Last Admin: 12/16/19 23:28 Dose: 4 mg Documented by: SYLVAIN Vital Signs Vital signs: Vital Signs - 8 hr 12/16/19 18:27 12/16/19 18:30 12/16/19 18:31 Pulse Rate 79 76 77 Respiratory Rate 17 23 21 Blood Pressure 137/63 Pulse Oximetry 95 95 95 12/16/19 19:00 12/16/19 19:30 12/16/19 20:00 Pulse Rate 78 75 77 Respiratory Rate 23 25 H 22 Blood Pressure 123/74 126/85 124/93 H Pulse Oximetry 94 94 91 12/16/19 20:30 12/16/19 21:00 Pulse Rate 74 78 Respiratory Rate 24 22 Blood Pressure 135/61 136/90 Pulse Oximetry 91 92 MDM - Skin/Abscess/Foreign Bdy Medical Records Attestation: I reviewed the patient's medical records. Lab Data Attestation: I reviewed the patient's lab results. Result diagrams: 12/16/19 16:45 12/16/19 16:45 Labs: Lab Results 12/16/19 12/16/19 12/16/19 Range/Units 16:45 16:45 16:45 WBC 8.5 (4.5-11.0) X10^3/uL RBC 4.99 (4.0-5.2) X10^6/uL Hgb 12.6 (12.0-16.0) g/dL Hct 39.1 (36-46) % MCV 78.3 L (80-100) fL MCH 25.3 L (26-34) PG MCHC 32.3 (30-36) % RDW 20.0 H (11.6-14.8) % Plt Count 251 (150-400) X10^3/uL Neut % (Auto) 66.0 (50-75) % Lymph % (Auto) 25.1 (25-40) % Moffat % (Auto) 6.1 (3-14) % Eos % (Auto) 1.6 L (2-4) % Baso % (Auto) 1.2 (0-2) % Neut # (Auto) 5600 (3723-6659) /uL Lymph # (Auto) 2100 (1499-2446) /uL Moffat # (Auto) 500 (0-900) /uL Eos # (Auto) 100 (0-450) /uL Baso # (Auto) 100 (0-100) /uL PT 28.6 H (10.1-12.7) SECONDS INR 2.5 H (0.9-1.3) APTT 46 H D (26.4-36.2) SECONDS Sodium (137-145) mmol/L Potassium (3.4-5.1) mmol/L Chloride (98-107) mmol/L Carbon Dioxide (22-32) mmol/L BUN (7-17) mg/dL Creatinine (0.52-1.04) mg/dL Estimated GFR (>60) mL/min BUN/Creatinine Ratio (6-22) Glucose (70-100) mg/dL Lactate (0.7-2.1) mmol/L Calcium (8.4-10.2) mg/dL Total Bilirubin (0.2-1.3) mg/dL AST (14-36) IU/L ALT (<35) IU/L Alkaline Phosphatase (38-126) U/L Total Protein (6.3-8.2) g/dL Albumin (3.5-5.0) g/dL Globulin (1.7-4.1) g/dL Albumin/Globulin Ratio (1.0-2.8) Lipase (23-300) U/L Procalcitonin < 0.05 (<0.5) ng/mL Urine RBC (0-5/HPF) Urine WBC (0-5/HPF) Ur Squamous Epith Cells (0-5/HPF) Amorphous Sediment Urine Bacteria (None) Urine Mucus (Negative) Ur Culture Indicated? COVID-19 PCR (Negative) 12/16/19 12/16/19 12/16/19 Range/Units 16:45 16:45 17:22 WBC (4.5-11.0) X10^3/uL RBC (4.0-5.2) X10^6/uL Hgb (12.0-16.0) g/dL Hct (36-46) % MCV (80-100) fL MCH (26-34) PG MCHC (30-36) % RDW (11.6-14.8) % Plt Count (150-400) X10^3/uL Neut % (Auto) (50-75) % Lymph % (Auto) (25-40) % Moffat % (Auto) (3-14) % Eos % (Auto) (2-4) % Baso % (Auto) (0-2) % Neut # (Auto) (7985-7889) /uL Lymph # (Auto) (1284-8506) /uL Moffat # (Auto) (0-900) /uL Eos # (Auto) (0-450) /uL Baso # (Auto) (0-100) /uL PT (10.1-12.7) SECONDS INR (0.9-1.3) APTT (26.4-36.2) SECONDS Sodium 138 (137-145) mmol/L Potassium 4.2 (3.4-5.1) mmol/L Chloride 101 (98-107) mmol/L Carbon Dioxide 29 (22-32) mmol/L BUN 12 (7-17) mg/dL Creatinine 0.63 (0.52-1.04) mg/dL Estimated GFR > 60.0 (>60) mL/min BUN/Creatinine Ratio 19.0 (6-22) Glucose 96 (70-100) mg/dL Lactate 1.3 (0.7-2.1) mmol/L Calcium 9.7 (8.4-10.2) mg/dL Total Bilirubin 0.5 (0.2-1.3) mg/dL AST 34 (14-36) IU/L ALT 32 (<35) IU/L Alkaline Phosphatase 60 (38-126) U/L Total Protein 7.8 (6.3-8.2) g/dL Albumin 4.3 (3.5-5.0) g/dL Globulin 3.5 (1.7-4.1) g/dL Albumin/Globulin Ratio 1.2 (1.0-2.8) Lipase 68 (23-300) U/L Procalcitonin (<0.5) ng/mL Urine RBC 10-30/hpf H (0-5/HPF) Urine WBC 5-10/hpf H (0-5/HPF) Ur Squamous Epith Cells 1-5 /hpf (0-5/HPF) Amorphous Sediment 1+ Urine Bacteria Few (2-10) H (None) Urine Mucus 1+ H (Negative) Ur Culture Indicated? Specimen cultured COVID-19 PCR (Negative) 12/16/19 Range/Units 18:35 WBC (4.5-11.0) X10^3/uL RBC (4.0-5.2) X10^6/uL Hgb (12.0-16.0) g/dL Hct (36-46) % MCV (80-100) fL MCH (26-34) PG MCHC (30-36) % RDW (11.6-14.8) % Plt Count (150-400) X10^3/uL Neut % (Auto) (50-75) % Lymph % (Auto) (25-40) % Moffat % (Auto) (3-14) % Eos % (Auto) (2-4) % Baso % (Auto) (0-2) % Neut # (Auto) (5018-0648) /uL Lymph # (Auto) (7374-0262) /uL Moffat # (Auto) (0-900) /uL Eos # (Auto) (0-450) /uL Baso # (Auto) (0-100) /uL PT (10.1-12.7) SECONDS INR (0.9-1.3) APTT (26.4-36.2) SECONDS Sodium (137-145) mmol/L Potassium (3.4-5.1) mmol/L Chloride (98-107) mmol/L Carbon Dioxide (22-32) mmol/L BUN (7-17) mg/dL Creatinine (0.52-1.04) mg/dL Estimated GFR (>60) mL/min BUN/Creatinine Ratio (6-22) Glucose (70-100) mg/dL Lactate (0.7-2.1) mmol/L Calcium (8.4-10.2) mg/dL Total Bilirubin (0.2-1.3) mg/dL AST (14-36) IU/L ALT (<35) IU/L Alkaline Phosphatase (38-126) U/L Total Protein (6.3-8.2) g/dL Albumin (3.5-5.0) g/dL Globulin (1.7-4.1) g/dL Albumin/Globulin Ratio (1.0-2.8) Lipase (23-300) U/L Procalcitonin (<0.5) ng/mL Urine RBC (0-5/HPF) Urine WBC (0-5/HPF) Ur Squamous Epith Cells (0-5/HPF) Amorphous Sediment Urine Bacteria (None) Urine Mucus (Negative) Ur Culture Indicated? COVID-19 PCR Negative (Negative) Urine Dip Bedside Urine Glucose Negative Bedside Urine Bilirubin - Negative Bedside Urine Ketone - Negative Urine Specific [place] 1.020 Bedside Urine Occult Blood +++ Bedside Urine pH 5.5 Bedside Urine Protein - Negative Bedside Urine Urobilinogen - Negative Bedside Urine Nitrite - Negative Bedside Urine Leukocytes +/- 15 Esterase MDM Narrative Medical decision making narrative: Patient is afebrile, has no leukocytosis, normal lactate, COVID-19 negative. She is not tachycardic. She does have what appears to be cellulitis on the posterior aspect her right lower extremity. We were able to place a right-sided PICC line. Given the reports of improvement of her symptoms with meropenem in the past patient was administered a dose of this medication. Blood cultures were obtained. I discussed the case with Dr Stiles with Internal Medicine at this facility who stated that the patient should be transferred to a facility that has infectious disease. I discussed the case wit h Infectious Disease on-call provider at [facility] who agreed that the patient should be evaluated by infectious disease given the fact this is the 2nd incident of an infection that required meropenem however [facility] has no bed availability and they do not for see any availability in a reasonable amount of time. We contacted [facility] who also stated that they had no bed availability. I then discussed the case with Dr Reed hospitalist at [facility] who agreed to accept the patient in transport I did discuss the transfer with the patient. Discussed the need for consultation with Infectious Disease. Patient expressed understanding agreemen t. Patient is stable for transport. All of her prior cultures performed at this facility, discharge summary from her last hospital stay, note from marine habitat resource specialist from today are all included in information packet sent to receiving facility Discharge Plan Departure Patient Disposition: [facility] Clinical Impression: Cellulitis Prescriptions: No Action (DME) QUAD CANE Qty: 1 RF: 0 montelukast 10 mg tablet 10 mg PO DAILY Qty: 30 RF: 1 propranolol 20 mg tablet 20 mg PO BID Qty: 60 RF: 5 (DME) GRAB BARS FOR SHOWER Qty: 3 RF: 0 Breo Ellipta 200-25 mcg/dose blister with device 1 inhalation INHALATION DAILY RF: 0 multivitamin Tablet 1 tab PO DAILY RF: 0 hydrocodone-acetaminophen 5-325 mg tablet 1 tab PO Q8H PRN (Reason: pain) Qty: 15 RF: 0 albuterol sulfate [Ventolin HFA] 90 mcg/actuation HFA aerosol inhaler 2 puff INHALATION Q4-6H PRN (Reason: Shortness Of Breath) Qty: 18 RF: 0 Disabled Parking Permit 1 dev miscellaneous DIRECTED RF: 0 nystatin 100,000 unit/gram powder 1 applictn TOP TID Qty: 60 RF: 3 clotrimazole 1 % cream 1 applictn TOP BID Qty: 14 RF: 0 ipratropium-albuterol 3 ML solution for nebulization 3 ml INH Q6HP PRN (Reason: wheezing/ shortness of breath) RF: 0 warfarin 5 mg tablet See Rx Instructions .ROUTE .COMPLEX RF: 0 Referrals: Ivy Crystal DO [Primary Care Provider] -
[2019-12-16] MEDS: MEROPENEM 1 GM/50 ML PIGGYBACK IV (18:31)
[2019-12-16] MEDS: HYDROMORPHONE 1 MG INJ IV (19:54)
[2019-12-16 20:02] LABS: COVID19 -Nasal RAPID Negative (Negative)
[2019-12-16] MEDS: MORPHINE 4 MG/ML INJ IV (23:28)
== END 2019-12-17 00:25 | disposition short-term general hospital (02) ==
PROVIDERS: Emergency Medicine; Emergency Provider Emergency Medicine; PCP Family Medicine
DX: L03.115 Cellulitis of right lower limb (principal); Z11.59 Encounter for screening for other viral diseases; E66.9 Obesity, unspecified; Z95.828 Presence of other vascular implants and grafts; I89.0 Lymphedema, not elsewhere classified
CPT/HCPCS: 36569; 80053; 81003; 81015; 83605; 83690; 84145; 85025; 85610; 85730; 87040; 87070; 87077; 87086; 87147; 87186; 87205; 87635; 96365; 96375; 99214; 99283; 99285; J1170; J2270

== ENCOUNTER → 2019-12-29 15:03 | Outpatient (CLI) | payer MEDICARE, MEDICAID, SELFPAY ==
[2019-11-17 02:44] VITALS: BMI 71.8
== END ==
PROVIDERS: PCP Family Medicine; Referring Provider Family Medicine; Visit Provider Family Medicine
DX: I89.0 Lymphedema, not elsewhere classified (principal); L97.811 Non-pressure chronic ulcer of other part of right lower leg limited to breakdown of skin; Z79.01 Long term (current) use of anticoagulants; E66.8 Other obesity; Z79.2 Long term (current) use of antibiotics; L08.9 Local infection of the skin and subcutaneous tissue, unspecified
CPT/HCPCS: 99213; 99214

== ENCOUNTER → 2020-01-07 10:24 | Outpatient (CLI) | payer MEDICARE, MEDICAID, SELFPAY ==
[2019-11-17 02:44] VITALS: BMI 71.8
== END ==
PROVIDERS: PCP Family Medicine; Referring Provider Family Medicine; Visit Provider Family Medicine
DX: I89.0 Lymphedema, not elsewhere classified (principal); L97.811 Non-pressure chronic ulcer of other part of right lower leg limited to breakdown of skin; L08.9 Local infection of the skin and subcutaneous tissue, unspecified; Z79.01 Long term (current) use of anticoagulants; Z79.2 Long term (current) use of antibiotics
CPT/HCPCS: 99212; 99213

== ENCOUNTER → 2020-01-12 12:07 | Outpatient (ROUT) | payer MEDICARE, MEDICAID, SELFPAY ==
[2019-11-17 02:44] VITALS: BMI 71.8
[2020-01-12 12:26] LABS: Add Manual Diff / Slide Review NO; Basophils Absolute Auto 100 /uL (0-100); Basophils Percent Auto 0.8 % (0-2); Eosinophils Absolute Auto 200 /uL (0-450); Eosinophils Percent Auto 2.3 % (2-4); Hematocrit 36.4 % (36-46); Hemoglobin 11.6 g/dL (12.0-16.0); Lymphocytes Absolute Auto 1600 /uL (1100-4500); Lymphocytes Percent Auto 20.5 % (25-40); Mean Corpuscular Hemoglobin 25.6 PG (26-34); Mean Corpuscular Volume 80.2 fL (80-100); Monocytes Absolute Auto 500 /uL (0-900); Monocytes Percent Auto 6.5 % (3-14); Neutrophils Absolute Auto 5600 /uL (1500-7000); Neutrophils Percent Auto 69.9 % (50-75); Platelet Count 247 X10^3/uL (150-400); Red Blood Cell Count 4.54 X10^6/uL (4.0-5.2); Red Cell Distribution Width 16.9 % (11.6-14.8)
[2020-01-12 12:46] LABS: Prothrombin Time 22.4 SECONDS (10.1-12.7)
[2020-01-12 12:47] LABS: BUN Creatinine Ratio 22.6 (6-22); Blood Urea Nitrogen 12 mg/dL (7-17); Calcium 9.3 mg/dL (8.4-10.2); Carbon Dioxide 31 mmol/L (22-32); Chloride 101 mmol/L (98-107); Estimated Glomerular Filt Rate > 60.0 mL/min (>60); Glucose 106 mg/dL (70-100); HEMOLYSIS < 15 (0-50); Potassium 4.4 mmol/L (3.4-5.1); Sodium 141 mmol/L (137-145)
== END ==
PROVIDERS: PCP Family Medicine; Visit Provider Internal Medicine Infectious Disease
DX: L03.115 Cellulitis of right lower limb (principal)
CPT/HCPCS: 80048; 85025; 85610

== ENCOUNTER → 2020-01-15 09:53 | Outpatient (CLI) | payer MEDICARE, MEDICAID, SELFPAY ==
[2019-11-17 02:44] VITALS: BMI 71.8
== END ==
PROVIDERS: PCP Family Medicine; Referring Provider Family Medicine; Visit Provider Family Medicine
DX: I89.0 Lymphedema, not elsewhere classified (principal); L97.811 Non-pressure chronic ulcer of other part of right lower leg limited to breakdown of skin
CPT/HCPCS: 99214

== ENCOUNTER → 2020-02-03 10:01 | Outpatient (CLI) | payer MEDICARE, MEDICAID, SELFPAY ==
[2019-11-17 02:44] VITALS: BMI 71.8
== END ==
PROVIDERS: PCP Family Medicine; Referring Provider Family Medicine; Visit Provider Family Medicine
DX: I89.0 Lymphedema, not elsewhere classified (principal); L97.811 Non-pressure chronic ulcer of other part of right lower leg limited to breakdown of skin; L08.9 Local infection of the skin and subcutaneous tissue, unspecified; Z79.01 Long term (current) use of anticoagulants; E66.8 Other obesity; Z79.2 Long term (current) use of antibiotics
CPT/HCPCS: 99213; 99215

== ENCOUNTER → 2020-02-25 11:20 | Outpatient (CLI) | payer MEDICARE, MEDICAID, SELFPAY ==
[2019-11-17 02:44] VITALS: BMI 71.8
== END ==
PROVIDERS: PCP Family Medicine; Referring Provider Family Medicine; Visit Provider Family Medicine
DX: I89.0 Lymphedema, not elsewhere classified (principal); L97.811 Non-pressure chronic ulcer of other part of right lower leg limited to breakdown of skin; Z79.01 Long term (current) use of anticoagulants; E66.8 Other obesity; Z79.2 Long term (current) use of antibiotics; T36.8X5A Adverse effect of other systemic antibiotics, initial encounter
CPT/HCPCS: 99213

== ENCOUNTER → 2020-03-17 09:34 | Outpatient (CLI) | payer MEDICARE, MEDICAID, SELFPAY ==
[2019-11-17 02:44] VITALS: BMI 71.8
== END ==
PROVIDERS: PCP Family Medicine; Referring Provider Family Medicine; Visit Provider Family Medicine
DX: I89.0 Lymphedema, not elsewhere classified (principal); L97.811 Non-pressure chronic ulcer of other part of right lower leg limited to breakdown of skin; Z79.01 Long term (current) use of anticoagulants; E66.8 Other obesity
CPT/HCPCS: 97597

== ENCOUNTER → 2020-04-08 09:02 | Outpatient (CLI) | payer MEDICARE, MEDICAID, SELFPAY ==
[2019-11-17 02:44] VITALS: BMI 71.8
== END ==
PROVIDERS: PCP Family Medicine; Referring Provider Family Medicine; Visit Provider Family Medicine
DX: I89.0 Lymphedema, not elsewhere classified (principal); R60.0 Localized edema
CPT/HCPCS: 99213

== ENCOUNTER → 2020-04-10 12:05 | Outpatient (CLI) | payer MEDICARE, MEDICAID, SELFPAY ==
[2019-11-17 02:44] VITALS: BMI 71.8
[2020-04-10 13:40] LABS: Add Manual Diff / Slide Review NO; Basophils Absolute Auto 100 /uL (0-100); Eosinophils Absolute Auto 100 /uL (0-450); Eosinophils Percent Auto 1.6 % (2-4); Lymphocytes Absolute Auto 1900 /uL (1100-4500); Lymphocytes Percent Auto 23.5 % (25-40); Mean Corpuscular HGB Conc 33.3 % (30-36); Mean Corpuscular Hemoglobin 27.5 PG (26-34); Mean Corpuscular Volume 82.4 fL (80-100); Monocytes Absolute Auto 600 /uL (0-900); Monocytes Percent Auto 6.8 % (3-14); Neutrophils Absolute Auto 5600 /uL (1500-7000); Neutrophils Percent Auto 67.1 % (50-75); Platelet Count 238 X10^3/uL (150-400); Red Cell Distribution Width 16.5 % (11.6-14.8); White Blood Cell Count 8.3 X10^3/uL (4.5-11.0)
[2020-04-10 13:56] LABS: Alanine Aminotransferase 30 IU/L (<35); Albumin 4.4 g/dL (3.5-5.0); Albumin Globulin Ratio 1.2 (1.0-2.8); Alkaline Phosphatase 57 U/L (38-126); Aspartate Aminotransferase 36 IU/L (14-36); BUN Creatinine Ratio 19.6 (6-22); Bilirubin Total 0.6 mg/dL (0.2-1.3); Blood Urea Nitrogen 11 mg/dL (7-17); Calcium 9.7 mg/dL (8.4-10.2); Carbon Dioxide 25 mmol/L (22-32); Chloride 104 mmol/L (98-107); Estimated Glomerular Filt Rate > 60.0 mL/min (>60); Globulin 3.6 g/dL (1.7-4.1); Glucose 128 mg/dL (70-100); HEMOLYSIS < 15 (0-50); INR 1.5 (0.9-1.3); Prothrombin Time 17.6 SECONDS (10.1-12.7); Sodium 139 mmol/L (137-145)
== END ==
PROVIDERS: PCP Family Medicine; Referring Provider Family Medicine; Visit Provider Family Medicine
DX: T14.8XXA Other injury of unspecified body region, initial encounter (principal); Z51.81 Encounter for therapeutic drug level monitoring; L08.9 Local infection of the skin and subcutaneous tissue, unspecified; Z79.01 Long term (current) use of anticoagulants; B37.2 Candidiasis of skin and nail; E66.01 Morbid (severe) obesity due to excess calories; Z68.45 Body mass index [BMI] 70 or greater, adult; I10 Essential (primary) hypertension; R73.01 Impaired fasting glucose; D50.9 Iron deficiency anemia, unspecified
CPT/HCPCS: 36415; 80053; 85025; 85610

== ENCOUNTER 2020-04-12 10:30 | Outpatient (RCR) | payer MEDICARE, MEDICAID, SELFPAY ==
--- NOTE | 2019-07-03 15:14 | PT.OPPOC ---
Physical, Occupational & Speech Therapy At [facility] Current Diagnoses Lymphedema, not elsewhere classified (07/03/19) Pain in right lower leg (07/03/19) Pain in left lower leg (07/03/19) Difficulty in walking, not elsewhere classified (07/03/19) Weakness (07/03/19) Visit Care Team Role Provider Type Ivy Crystal DO Primary Care Provider Physician Specialty: Family Practice Address: [address] [place] [address], [address], [address] Email: [email or web address] Chidi Roblero MD Attending Provider Physician Referring Provider Specialty: Wound Care Address: [address] [place] [address], [address] Email: [email or web address] Plan Of Care PT-OP-T Assessment and Plan Start: 07/03/19 10:30 Freq: Status: Active Protocol: Document 07/03/19 10:36 SAK (Rec: 07/06/19 14:41 SAK [id number]) Physical Therapy Assessment Rehab Potential Rehabilitation Potential Good Evaluation Complexity Number of Personal Factors/Comorbidities 1-2 Number of Body Systems Impaired 3 Clinical Presentation at Evaluation Evolving Impairments Impairments Activity Tolerance,Edema,Pain, Strength Other Concerns Barriers to Rehabilitation Low activity level Fibromyalgia, hernia, arthritis Goals 4 Impairment weakness bilateral LE's Outreach Librarian Goal (LTG) Patient to demonstrate improvement in LE strength to at least 4/5 throughout LTG Duration 10/04/19 3 Impairment difficulty walking community distances Custodial Goal (LTG) Patient able to consistently ambulate community distances wearing appropriate compression to bilateral LEs LTG Duration 10/04/19 2 Impairment pain bilateral LE's Outreach Librarian Goal (LTG) Decrease pain to no greater than 3/10 with decrease in lymphedema. LTG Duration 10/04/19 1 Impairment function-limiting lymphedema bilateral LE's Short Term Goal (STG) Educate patient in all aspects of lymphedema self-care including self-bandaging, skin care, self-MLD, exercise. STG Duration 07/17/19 Custodial Goal (LTG) Decrease edema to stable level to allow patient to be able to be fit with appropriate compression for home management. Patient to be independent with all components of self-care to include skin care, self MLD, exercise, and compression use. LTG Duration 10/04/19 Assessment Summary Assessment Patient presents to PT with 1 1/2 year history of progressively worsening edema, no treatment beneficial so far. Has tried to wear compression stockings but reports they are difficult to don and don't seem to help much. At this time she has a wound on the back of her right LE which has occurred due to the chronic lymphedema and her mobility is very limited. She would benefit from physical therapy to help her decrease her lymphedema and learn to self-manage at home addressing all PT goals as noted above. Due to the current shape of her legs feel she may require custom compression stockings and/or compression alternatives such as Circ Aid or Ready Wrap. garments, will depend on amount of reduction we are able to achieve in her legs. She also may benefit from use of a home lymphedema pump. Physical Therapy Plan Frequency and Duration Frequency of Treatment 4x/Week Duration of Treatment 8 wks Plan of Care Start Date 07/03/19 Plan of Care End Date 10/04/19 Therapeutic Interventions Therapeutic Interventions Lymphedema Management,Self- Care/Home Management, Therapeutic Exercises Next Visit Focus/Plan Next Note Type Treatment Note Next Visit Plan Initiate MLD, discuss tolerance to bandaging with short stretch bandages last session, lymphedema wrapping if tolerated, lymphedema exercises, skin care. Plan of Care Dates Plan of Care Start Date 07/03/19 Plan of Care End Date 10/04/19 Electronically Signed by: Julia Herrera, PT 07/06/19 [id number] Please Sign and Return: I have reviewed this Plan of Care and certify that the skilled therapy services above are required to meet the patient?s needs. Physician Signature Date Printed Name and Credentials Clinical Instructor Signature Printed Name and Credentials
--- NOTE | 2019-07-03 15:14 | PT.OIE ---
Current Diagnoses Lymphedema, not elsewhere classified (07/03/19) Pain in right lower leg (07/03/19) Pain in left lower leg (07/03/19) Difficulty in walking, not elsewhere classified (07/03/19) Weakness (07/03/19) Past Medical History (Last Reviewed 02/06/19 @ 15:25 by Bimal Britt DO) Hypertension (Chronic) Migraines (Chronic) Ovarian cyst (Resolved 03/28/15) Pneumonia (Resolved 2008) Sleep apnea (Chronic) Past Surgical History (Last Reviewed 02/06/19 @ 15:25 by Bimal Britt DO) History of laparoscopic appendectomy (Resolved 03/28/15) History of ovarian cystectomy (Resolved) History of placement of ear tubes (Resolved) History of tonsillectomy (Resolved) Visit Care Team Role Provider Type Ivy Crystal DO Primary Care Provider Physician Specialty: Family Practice Address: [address] [place] [address], [address], [facility] Email: [email or web address] Chidi Roblero MD Attending Provider Physician Referring Provider Specialty: Wound Care Address: [address] [place] [address], [facility] Email: [email or web address] Physical Therapy Initial Evaluation PT-OP-A Visit Information Start: 07/03/19 10:30 Freq: Status: Active Protocol: Document 07/03/19 10:36 SAK (Rec: 07/03/19 12:00 SAK [id number]) Out-Patient Physical Therapy Visit Information Visit Information Visit Type Initial Evaluation Visit Start Time 09:00 Visit Stop Time 10:30 Total Visit Minutes 90 Visit Number 1 Number of ANTIQUE DEALER Visits 0 Evaluation Information Evaluation Date 07/03/19 Precautions Precautions wound right LE PT-OP-B Current Condition Start: 07/03/19 10:30 Freq: Status: Active Protocol: Document 07/03/19 10:36 SAK (Rec: 07/03/19 12:00 SAK [id number]) Current Condition History of Current Condition Onset Date 1 1/2 years Current Complaints bilateral LE's History of Current Condition Prior to 1 1/2 years ago, legs would swell sometimes but it would go down, never stayed. Gradual worsening, swelling would stay longer periods of time, then got to the point didn't go away, just got worse and worse. States physician kept putting her on diuretics, not helpful. In ER in January for wound posterior right LE; continues with wound care department at [facility]. Has PE, on Warfarin. History of hernia surgery, appendix removal, 2 C sections , several ovarian cysts states noone wants to touch it. Right ovary removed due to a cyst. Compression stockings hard to get on and she states they don't seem to be helpful, not sure of compression level , doesn't have stockings with her this date. Very limited mobility, reports difficult to get to the bathroom at times. Prior Treatments and Tests diuretics compression stockings Treatment Goals Patient/Caregiver Goals Decrease swelling, be able to self-managel. Prior Functional Status Baseline Function- ADL's Independent Baseline Function- Mobility Independent Baseline Function- Gait independent no device Baseline Function- Recreation/Hobbies no limitations Current Functional Impairments (Reported) Functional Limitations- ADL's takes increased time Functional Limitations- Mobility/Gait decreased tolerance due to heaviness of her legs as well as pain Functional Limitations- Work/School unable Functional Limitations- Recreation/ limited to seated Hobbies Personal Factors Other Personal Factors That May Effect PMH: fibromyalgia Therapy/Recovery PT-OP-C Subjective Start: 07/03/19 10:30 Freq: Status: Active Protocol: Document 07/03/19 10:36 [facility] (Rec: 07/06/19 14:41 [facility] [id number]) OP-PT Pain Assessment Pain Assessment Grid Paper Pain Assessment Grid Completed Yes Location bilateral LE Intensity 6 PT-OP-E Functional Tests Start: 07/03/19 10:30 Freq: Status: Active Protocol: Document 07/03/19 10:36 [facility] (Rec: 07/06/19 14:41 [facility] [id number]) Functional Tests 2 Minute Walk Test Distance 75 ft PT-OP-J Posture/Palpation/Skin Start: 07/03/19 10:30 Freq: Status: Active Protocol: Document 07/03/19 10:36 [facility] (Rec: 07/06/19 14:41 [facility] [id number]) Palpation Assessment Location bilateral LE Palpation Findings Edema,Soft Tissue Tightness Palpation Details Fibrosis bilateral distal LE's between knee and ankles, though difficult to fully assess due to Coban on right LE Skin Assessment Other Assessments Skin Assessment Comments Right LE covered with Coban from knee to foot by wound care, not removed this date Mild hemosideran staining noted on left lower leg. PT-OP-K Range of Motion Start: 07/03/19 10:30 Freq: Status: Active Protocol: Document 07/03/19 10:36 [facility] (Rec: 07/06/19 14:41 [facility] [id number]) Hip Goniometric Range of Motion Hip ernestine Hip ROM WFL Yes Knee Goniometric Range of Motion Knee ernestine Knee ROM WFL Yes Ankle and Foot Goniometric Range of Motion Ankle and Foot ernestine Ankle/Foot ROM WFL Yes PT-OP-M Strength Start: 07/03/19 10:30 Freq: Status: Active Protocol: Document 07/03/19 10:36 [facility] (Rec: 07/06/19 14:41 [facility] [id number]) Hip Strength Hip Manual Muscle Testing ernestine Flexion (L2) 3- Fair- Extension (S1) 3- Fair- Abduction 3 Fair External Rotation 3+ Fair+ Internal Rotation 3+ Fair+ Knee Strength Knee Manual Muscle Testing erenstine Flexion (S2) 4- Good- Extension (L3) 4- Good- Ankle/Foot Strength Ankle and Foot Manual Muscle Testing ernestine Dorsiflexion (L4) 4 Good Plantarflexion (S1) 4 Good PT-OP-N Lymphedema Start: 07/03/19 10:30 Freq: Status: Active Protocol: Document 07/03/19 10:36 [facility] (Rec: 07/06/19 14:41 [facility] [id number]) Lymphedema Measurements Lower Extremity Circumference Measurements Left Affected MT Heads 28 cm Medial Malleolus 28.7 cm 10 cm From Medial Malleolus 39.8 cm 20 cm From Medial Malleolus 45.6 cm 30 cm From Medial Malleolus 67 cm 40 cm From Medial Malleolus 72.8 cm 50 cm From Medial Malleolus 69.2 cm 60 cm From Medial Malleolus 86 cm 70 cm From Medial Malleolus 90.1 cm 80 cm From Medial Malleolus 90 cm Right Affected MT Heads 28 cm Medial Malleolus 37.3 cm 10 cm From Medial Malleolus 59.2 cm 20 cm From Medial Malleolus 73.2 cm 30 cm From Medial Malleolus 80.4 cm 40 cm From Medial Malleolus 75.5 cm 50 cm From Medial Malleolus 86.4 cm 60 cm From Medial Malleolus 87.6 cm 70 cm From Medial Malleolus 90 cm Comments Lymphedema Comments midfoot 28.1 cm right, 28.7 cm left toes mildly swollen bilaterally. PT-OP-Q Treatments Start: 07/03/19 10:30 Freq: Status: Active Protocol: Document 07/03/19 10:36 [facility] (Rec: 07/06/19 14:41 [facility] [id number]) Lymphedema Treatment Lymphedema Wrapping Body Location right LE Materials Artiflex and Comprilan right LE, extra Artiflex at achilles and back of knee Sequential Lymphedema Exercises Comments Biodex recumbant elliptical x 5 min Patient Education Lymphedema Pathology verbal instructtion Lymphedema Prevention verbal instruction Lymphedema Precautions verbal instruction Compression Garments verbal discussion including showing patient compression alternatives PT-OP-T Assessment and Plan Start: 07/03/19 10:30 Freq: Status: Active Protocol: Document 07/03/19 10:36 [facility] (Rec: 07/06/19 14:41 [facility] [id number]) Physical Therapy Assessment Rehab Potential Rehabilitation Potential Good Evaluation Complexity Number of Personal Factors/Comorbidities 1-2 Number of Body Systems Impaired 3 Clinical Presentation at Evaluation Evolving Impairments Impairments Activity Tolerance,Edema,Pain, Strength Other Concerns Barriers to Rehabilitation Low activity level Fibromyalgia, hernia, arthritis Goals 4 Impairment weakness bilateral LE's Residential Goal (LTG) Patient to demonstrate improvement in LE strength to at least 4/5 throughout LTG Duration 10/04/19 3 Impairment difficulty walking community distances Hospital Nurse Goal (LTG) Patient able to consistently ambulate community distances wearing appropriate compression to bilateral LEs LTG Duration 10/04/19 2 Impairment pain bilateral LE's Hospital Nurse Goal (LTG) Decrease pain to no greater than 3/10 with decrease in lymphedema. LTG Duration 10/04/19 1 Impairment function-limiting lymphedema bilateral LE's Short Term Goal (STG) Educate patient in all aspects of lymphedema self-care including self-bandaging, skin care, self-MLD, exercise. STG Duration 07/17/19 Hospital Nurse Goal (LTG) Decrease edema to stable level to allow patient to be able to be fit with appropriate compression for home management. Patient to be independent with all components of self-care to include skin care, self MLD, exercise, and compression use. LTG Duration 10/04/19 Assessment Summary Assessment Patient presents to PT with 1 1/2 year history of progressively worsening edema, no treatment beneficial so far. Has tried to wear compression stockings but reports they are difficult to don and don't seem to help much. At this time she has a wound on the back of her right LE which has occurred due to the chronic lymphedema and her mobility is very limited. She would benefit from physical therapy to help her decrease her lymphedema and learn to self-manage at home addressing all PT goals as noted above. Due to the current shape of her legs feel she may require custom compression stockings and/or compression alternatives such as Circ Aid or Ready Wrap. garments, will depend on amount of reduction we are able to achieve in her legs. She also may benefit from use of a home lymphedema pump. Physical Therapy Plan Frequency and Duration Frequency of Treatment 4x/Week Duration of Treatment 8 wks Plan of Care Start Date 07/03/19 Plan of Care End Date 10/04/19 Therapeutic Interventions Therapeutic Interventions Lymphedema Management,Self- Care/Home Management, Therapeutic Exercises Next Visit Focus/Plan Next Note Type Treatment Note Next Visit Plan Initiate MLD, discuss tolerance to bandaging with short stretch bandages last session, lymphedema wrapping if tolerated, lymphedema exercises, skin care.
--- NOTE | 2019-07-06 14:42 | PT.OIE ---
Current Diagnoses Lymphedema, not elsewhere classified (07/03/19) Pain in right lower leg (07/03/19) Pain in left lower leg (07/03/19) Difficulty in walking, not elsewhere classified (07/03/19) Weakness (07/03/19) Past Medical History (Last Reviewed 02/06/19 @ 15:25 by Bimal Britt DO) Hypertension (Chronic) Migraines (Chronic) Ovarian cyst (Resolved 03/28/15) Pneumonia (Resolved 2008) Sleep apnea (Chronic) Past Surgical History (Last Reviewed 02/06/19 @ 15:25 by Bimal Britt DO) History of laparoscopic appendectomy (Resolved 03/28/15) History of ovarian cystectomy (Resolved) History of placement of ear tubes (Resolved) History of tonsillectomy (Resolved) Visit Care Team Role Provider Type Ivy Crystal DO Primary Care Provider Physician Specialty: Family Practice Address: [address] [place] [address], [address], [facility] Email: [email or web address] Chidi Roblero MD Attending Provider Physician Referring Provider Specialty: Wound Care Address: [address] [place] [address], [facility] Email: [email or web address] Physical Therapy Initial Evaluation PT-OP-A Visit Information Start: 07/03/19 10:30 Freq: Status: Active Protocol: Document 07/03/19 10:36 [facility] (Rec: 07/03/19 12:00 [facility] [id number]) Out-Patient Physical Therapy Visit Information Visit Information Visit Type Initial Evaluation Visit Start Time 09:00 Visit Stop Time 10:30 Total Visit Minutes 90 Visit Number 1 Number of CENTER RECEPTIONIST Visits 0 Evaluation Information Evaluation Date 07/03/19 Precautions Precautions wound right LE PT-OP-B Current Condition Start: 07/03/19 10:30 Freq: Status: Active Protocol: Document 07/03/19 10:36 [facility] (Rec: 07/03/19 12:00 [facility] [id number]) Current Condition History of Current Condition Onset Date 1 1/2 years Current Complaints bilateral LE's History of Current Condition Prior to 1 1/2 years ago, legs would swell sometimes but it would go down, never stayed. Gradual worsening, swelling would stay longer periods of time, then got to the point didn't go away, just got worse and worse. States physician kept putting her on diuretics, not helpful. In ER in January for wound posterior right LE; continues with wound care department at [facility]. Has PE, on Warfarin. History of hernia surgery, appendix removal, 2 C sections , several ovarian cysts states noone wants to touch it. Right ovary removed due to a cyst. Compression stockings hard to get on and she states they don't seem to be helpful, not sure of compression level , doesn't have stockings with her this date. Very limited mobility, reports difficult to get to the bathroom at times. Prior Treatments and Tests diuretics compression stockings Treatment Goals Patient/Caregiver Goals Decrease swelling, be able to self-managel. Prior Functional Status Baseline Function- ADL's Independent Baseline Function- Mobility Independent Baseline Function- Gait independent no device Baseline Function- Recreation/Hobbies no limitations Current Functional Impairments (Reported) Functional Limitations- ADL's takes increased time Functional Limitations- Mobility/Gait decreased tolerance due to heaviness of her legs as well as pain Functional Limitations- Work/School unable Functional Limitations- Recreation/ limited to seated Hobbies Personal Factors Other Personal Factors That May Effect PMH: fibromyalgia Therapy/Recovery PT-OP-C Subjective Start: 07/03/19 10:30 Freq: Status: Active Protocol: Document 07/03/19 10:36 [facility] (Rec: 07/06/19 14:41 [facility] [id number]) OP-PT Pain Assessment Pain Assessment Grid Paper Pain Assessment Grid Completed Yes Location bilateral LE Intensity 6 PT-OP-E Functional Tests Start: 07/03/19 10:30 Freq: Status: Active Protocol: Document 07/03/19 10:36 [facility] (Rec: 07/06/19 14:41 [facility] [id number]) Functional Tests 2 Minute Walk Test Distance 75 ft PT-OP-J Posture/Palpation/Skin Start: 07/03/19 10:30 Freq: Status: Active Protocol: Document 07/03/19 10:36 [facility] (Rec: 07/06/19 14:41 [facility] [id number]) Palpation Assessment Location bilateral LE Palpation Findings Edema,Soft Tissue Tightness Palpation Details Fibrosis bilateral distal LE's between knee and ankles, though difficult to fully assess due to Coban on right LE Skin Assessment Other Assessments Skin Assessment Comments Right LE covered with Coban from knee to foot by wound care, not removed this date Mild hemosideran staining noted on left lower leg. PT-OP-K Range of Motion Start: 07/03/19 10:30 Freq: Status: Active Protocol: Document 07/03/19 10:36 [facility] (Rec: 07/06/19 14:41 [facility] [id number]) Hip Goniometric Range of Motion Hip ernestine Hip ROM WFL Yes Knee Goniometric Range of Motion Knee ernestine Knee ROM WFL Yes Ankle and Foot Goniometric Range of Motion Ankle and Foot ernestine Ankle/Foot ROM WFL Yes PT-OP-M Strength Start: 07/03/19 10:30 Freq: Status: Active Protocol: Document 07/03/19 10:36 [facility] (Rec: 07/06/19 14:41 [facility] [id number]) Hip Strength Hip Manual Muscle Testing ernestine Flexion (L2) 3- Fair- Extension (S1) 3- Fair- Abduction 3 Fair External Rotation 3+ Fair+ Internal Rotation 3+ Fair+ Knee Strength Knee Manual Muscle Testing ernestine Flexion (S2) 4- Good- Extension (L3) 4- Good- Ankle/Foot Strength Ankle and Foot Manual Muscle Testing ernestine Dorsiflexion (L4) 4 Good Plantarflexion (S1) 4 Good PT-OP-N Lymphedema Start: 07/03/19 10:30 Freq: Status: Active Protocol: Document 07/03/19 10:36 [facility] (Rec: 07/06/19 14:41 [facility] [id number]) Lymphedema Measurements Lower Extremity Circumference Measurements Left Affected MT Heads 28 cm Medial Malleolus 28.7 cm 10 cm From Medial Malleolus 39.8 cm 20 cm From Medial Malleolus 45.6 cm 30 cm From Medial Malleolus 67 cm 40 cm From Medial Malleolus 72.8 cm 50 cm From Medial Malleolus 69.2 cm 60 cm From Medial Malleolus 86 cm 70 cm From Medial Malleolus 90.1 cm 80 cm From Medial Malleolus 90 cm Right Affected MT Heads 28 cm Medial Malleolus 37.3 cm 10 cm From Medial Malleolus 59.2 cm 20 cm From Medial Malleolus 73.2 cm 30 cm From Medial Malleolus 80.4 cm 40 cm From Medial Malleolus 75.5 cm 50 cm From Medial Malleolus 86.4 cm 60 cm From Medial Malleolus 87.6 cm 70 cm From Medial Malleolus 90 cm Comments Lymphedema Comments midfoot 28.1 cm right, 28.7 cm left toes mildly swollen bilaterally. PT-OP-Q Treatments Start: 07/03/19 10:30 Freq: Status: Active Protocol: Document 07/03/19 10:36 [facility] (Rec: 07/06/19 14:41 [facility] [id number]) Lymphedema Treatment Lymphedema Wrapping Body Location right LE Materials Artiflex and Comprilan right LE, extra Artiflex at achilles and back of knee Sequential Lymphedema Exercises Comments Biodex recumbant elliptical x 5 min Patient Education Lymphedema Pathology verbal instructtion Lymphedema Prevention verbal instruction Lymphedema Precautions verbal instruction Compression Garments verbal discussion including showing patient compression alternatives PT-OP-T Assessment and Plan Start: 07/03/19 10:30 Freq: Status: Active Protocol: Document 07/03/19 10:36 [facility] (Rec: 07/06/19 14:41 [facility] [id number]) Physical Therapy Assessment Rehab Potential Rehabilitation Potential Good Evaluation Complexity Number of Personal Factors/Comorbidities 1-2 Number of Body Systems Impaired 3 Clinical Presentation at Evaluation Evolving Impairments Impairments Activity Tolerance,Edema,Pain, Strength Other Concerns Barriers to Rehabilitation Low activity level Fibromyalgia, hernia, arthritis Goals 4 Impairment weakness bilateral LE's Mcfp Goal (LTG) Patient to demonstrate improvement in LE strength to at least 4/5 throughout LTG Duration 10/04/19 3 Impairment difficulty walking community distances Data Entry Processor Goal (LTG) Patient able to consistently ambulate community distances wearing appropriate compression to bilateral LEs LTG Duration 10/04/19 2 Impairment pain bilateral LE's Data Entry Processor Goal (LTG) Decrease pain to no greater than 3/10 with decrease in lymphedema. LTG Duration 10/04/19 1 Impairment function-limiting lymphedema bilateral LE's Short Term Goal (STG) Educate patient in all aspects of lymphedema self-care including self-bandaging, skin care, self-MLD, exercise. STG Duration 07/17/19 Data Entry Processor Goal (LTG) Decrease edema to stable level to allow patient to be able to be fit with appropriate compression for home management. Patient to be independent with all components of self-care to include skin care, self MLD, exercise, and compression use. LTG Duration 10/04/19 Assessment Summary Assessment Patient presents to PT with 1 1/2 year history of progressively worsening edema, no treatment beneficial so far. Has tried to wear compression stockings but reports they are difficult to don and don't seem to help much. At this time she has a wound on the back of her right LE which has occurred due to the chronic lymphedema and her mobility is very limited. She would benefit from physical therapy to help her decrease her lymphedema and learn to self-manage at home addressing all PT goals as noted above. Due to the current shape of her legs feel she may require custom compression stockings and/or compression alternatives such as Circ Aid or Ready Wrap. garments, will depend on amount of reduction we are able to achieve in her legs. She also may benefit from use of a home lymphedema pump. Physical Therapy Plan Frequency and Duration Frequency of Treatment 4x/Week Duration of Treatment 8 wks Plan of Care Start Date 07/03/19 Plan of Care End Date 10/04/19 Therapeutic Interventions Therapeutic Interventions Lymphedema Management,Self- Care/Home Management, Therapeutic Exercises Next Visit Focus/Plan Next Note Type Treatment Note Next Visit Plan Initiate MLD, discuss tolerance to bandaging with short stretch bandages last session, lymphedema wrapping if tolerated, lymphedema exercises, skin care.
--- NOTE | 2019-07-06 14:42 | PT.OPPOC ---
Physical, Occupational & Speech Therapy At [facility] Current Diagnoses Lymphedema, not elsewhere classified (07/03/19) Pain in right lower leg (07/03/19) Pain in left lower leg (07/03/19) Difficulty in walking, not elsewhere classified (07/03/19) Weakness (07/03/19) Visit Care Team Role Provider Type Ivy Crystal DO Primary Care Provider Physician Specialty: Family Practice Address: [address] [place] [address], [address], [address] Email: [email or web address] Chidi Roblero MD Attending Provider Physician Referring Provider Specialty: Wound Care Address: [address] [place] [address], [address] Email: [email or web address] Plan Of Care PT-OP-T Assessment and Plan Start: 07/03/19 10:30 Freq: Status: Active Protocol: Document 07/03/19 10:36 [facility] (Rec: 07/06/19 14:41 [facility] [id number]) Physical Therapy Assessment Rehab Potential Rehabilitation Potential Good Evaluation Complexity Number of Personal Factors/Comorbidities 1-2 Number of Body Systems Impaired 3 Clinical Presentation at Evaluation Evolving Impairments Impairments Activity Tolerance,Edema,Pain, Strength Other Concerns Barriers to Rehabilitation Low activity level Fibromyalgia, hernia, arthritis Goals 4 Impairment weakness bilateral LE's Sweeper Operator Highways Goal (LTG) Patient to demonstrate improvement in LE strength to at least 4/5 throughout LTG Duration 10/04/19 3 Impairment difficulty walking community distances [facility] Goal (LTG) Patient able to consistently ambulate community distances wearing appropriate compression to bilateral LEs LTG Duration 10/04/19 2 Impairment pain bilateral LE's Sweeper Operator Highways Goal (LTG) Decrease pain to no greater than 3/10 with decrease in lymphedema. LTG Duration 10/04/19 1 Impairment function-limiting lymphedema bilateral LE's Short Term Goal (STG) Educate patient in all aspects of lymphedema self-care including self-bandaging, skin care, self-MLD, exercise. STG Duration 07/17/19 [facility] Goal (LTG) Decrease edema to stable level to allow patient to be able to be fit with appropriate compression for home management. Patient to be independent with all components of self-care to include skin care, self MLD, exercise, and compression use. LTG Duration 10/04/19 Assessment Summary Assessment Patient presents to PT with 1 1/2 year history of progressively worsening edema, no treatment beneficial so far. Has tried to wear compression stockings but reports they are difficult to don and don't seem to help much. At this time she has a wound on the back of her right LE which has occurred due to the chronic lymphedema and her mobility is very limited. She would benefit from physical therapy to help her decrease her lymphedema and learn to self-manage at home addressing all PT goals as noted above. Due to the current shape of her legs feel she may require custom compression stockings and/or compression alternatives such as Circ Aid or Ready Wrap. garments, will depend on amount of reduction we are able to achieve in her legs. She also may benefit from use of a home lymphedema pump. Physical Therapy Plan Frequency and Duration Frequency of Treatment 4x/Week Duration of Treatment 8 wks Plan of Care Start Date 07/03/19 Plan of Care End Date 10/04/19 Therapeutic Interventions Therapeutic Interventions Lymphedema Management,Self- Care/Home Management, Therapeutic Exercises Next Visit Focus/Plan Next Note Type Treatment Note Next Visit Plan Initiate MLD, discuss tolerance to bandaging with short stretch bandages last session, lymphedema wrapping if tolerated, lymphedema exercises, skin care. Plan of Care Dates Plan of Care Start Date 07/03/19 Plan of Care End Date 10/04/19 Electronically Signed by: Julia Herrera, PT 07/06/19 [id number] Please Sign and Return: I have reviewed this Plan of Care and certify that the skilled therapy services above are required to meet the patient?s needs. Physician Signature Date Printed Name and Credentials Clinical Instructor Signature Printed Name and Credentials
--- NOTE | 2019-09-23 18:13 | PT.OTN ---
Current Diagnoses Lymphedema, not elsewhere classified (09/23/19) Pain in right lower leg (09/23/19) Pain in left lower leg (09/23/19) Difficulty in walking, not elsewhere classified (09/23/19) Weakness (09/23/19) Physical Therapy Treatment Note PT-OP-A Visit Information Start: 07/03/19 10:30 Freq: Status: Active Protocol: Document 09/23/19 16:01 [facility] (Rec: 09/23/19 17:20 [facility] [id number]) Out-Patient Physical Therapy Visit Information Visit Information Visit Type Treatment Note Visit Start Time 16:00 Visit Stop Time 17:16 Total Visit Minutes 75 Visit Number 2 Number of MANAGER FLEET Visits 0 Precautions Precautions wound right LE PT-OP-B Current Condition Start: 07/03/19 10:30 Freq: Status: Active Protocol: Document 07/03/19 10:36 [facility] (Rec: 07/03/19 12:00 [facility] [id number]) Current Condition History of Current Condition Onset Date 1 1/2 years Current Complaints bilateral LE's History of Current Condition Prior to 1 1/2 years ago, legs would swell sometimes but it would go down, never stayed. Gradual worsening, swelling would stay longer periods of time, then got to the point didn't go away, just got worse and worse. States physician kept putting her on diuretics, not helpful. In ER in January for wound posterior right LE; continues with wound care department at [facility]. Has PE, on Warfarin. History of hernia surgery, appendix removal, 2 C sections , several ovarian cysts states noone wants to touch it. Right ovary removed due to a cyst. Compression stockings hard to get on and she states they don't seem to be helpful, not sure of compression level , doesn't have stockings with her this date. Very limited mobility, reports difficult to get to the bathroom at times. Prior Treatments and Tests diuretics compression stockings Treatment Goals Patient/Caregiver Goals Decrease swelling, be able to self-managel. Prior Functional Status Baseline Function- ADL's Independent Baseline Function- Mobility Independent Baseline Function- Gait independent no device Baseline Function- Recreation/Hobbies no limitations Current Functional Impairments (Reported) Functional Limitations- ADL's takes increased time Functional Limitations- Mobility/Gait decreased tolerance due to heaviness of her legs as well as pain Functional Limitations- Work/School unable Functional Limitations- Recreation/ limited to seated Hobbies Personal Factors Other Personal Factors That May Effect PMH: fibromyalgia Therapy/Recovery PT-OP-C Subjective Start: 07/03/19 10:30 Freq: Status: Active Protocol: Document 09/23/19 16:01 [facility] (Rec: 09/23/19 17:20 [facility] [id number]) OP-PT Subjective Patient Comments Patient Comments Reports her wound status and drainage has gotten worse, is not healing. Has been on multiple antibiotics both topical and internal. LE lymphedema wraps didn't even make it home, slid down, forgot to bring wraps. Coban on right foot and distal lower leg, otherwise no compression . PT-OP-E Functional Tests Start: 07/03/19 10:30 Freq: Status: Active Protocol: Document 07/03/19 10:36 [facility] (Rec: 07/06/19 14:41 [facility] [id number]) Functional Tests 2 Minute Walk Test Distance 75 ft PT-OP-J Posture/Palpation/Skin Start: 07/03/19 10:30 Freq: Status: Active Protocol: Document 07/03/19 10:36 [facility] (Rec: 07/06/19 14:41 [facility] [id number]) Palpation Assessment Location bilateral LE Palpation Findings Edema,Soft Tissue Tightness Palpation Details Fibrosis bilateral distal LE's between knee and ankles, though difficult to fully assess due to Coban on right LE Skin Assessment Other Assessments Skin Assessment Comments Right LE covered with Coban from knee to foot by wound care, not removed this date Mild hemosideran staining noted on left lower leg. PT-OP-K Range of Motion Start: 07/03/19 10:30 Freq: Status: Active Protocol: Document 07/03/19 10:36 [facility] (Rec: 07/06/19 14:41 [facility] [id number]) Hip Goniometric Range of Motion Hip ernestine Hip ROM WFL Yes Knee Goniometric Range of Motion Knee ernestine Knee ROM WFL Yes Ankle and Foot Goniometric Range of Motion Ankle and Foot ernestine Ankle/Foot ROM WFL Yes PT-OP-M Strength Start: 07/03/19 10:30 Freq: Status: Active Protocol: Document 07/03/19 10:36 [facility] (Rec: 07/06/19 14:41 [facility] [id number]) Hip Strength Hip Manual Muscle Testing ernestine Flexion (L2) 3- Fair- Extension (S1) 3- Fair- Abduction 3 Fair External Rotation 3+ Fair+ Internal Rotation 3+ Fair+ Knee Strength Knee Manual Muscle Testing ernestine Flexion (S2) 4- Good- Extension (L3) 4- Good- Ankle/Foot Strength Ankle and Foot Manual Muscle Testing ernestine Dorsiflexion (L4) 4 Good Plantarflexion (S1) 4 Good PT-OP-N Lymphedema Start: 07/03/19 10:30 Freq: Status: Active Protocol: Document 07/03/19 10:36 [facility] (Rec: 07/06/19 14:41 [facility] [id number]) Lymphedema Measurements Lower Extremity Circumference Measurements Left Affected MT Heads 28 cm Medial Malleolus 28.7 cm 10 cm From Medial Malleolus 39.8 cm 20 cm From Medial Malleolus 45.6 cm 30 cm From Medial Malleolus 67 cm 40 cm From Medial Malleolus 72.8 cm 50 cm From Medial Malleolus 69.2 cm 60 cm From Medial Malleolus 86 cm 70 cm From Medial Malleolus 90.1 cm 80 cm From Medial Malleolus 90 cm Right Affected MT Heads 28 cm Medial Malleolus 37.3 cm 10 cm From Medial Malleolus 59.2 cm 20 cm From Medial Malleolus 73.2 cm 30 cm From Medial Malleolus 80.4 cm 40 cm From Medial Malleolus 75.5 cm 50 cm From Medial Malleolus 86.4 cm 60 cm From Medial Malleolus 87.6 cm 70 cm From Medial Malleolus 90 cm Comments Lymphedema Comments midfoot 28.1 cm right, 28.7 cm left toes mildly swollen bilaterally. PT-OP-Q Treatments Start: 07/03/19 10:30 Freq: Status: Active Protocol: Document 09/23/19 16:01 [facility] (Rec: 09/23/19 18:10 [facility] [id number]) Lymphedema Treatment Manual Lymphatic Drainage Location Trunk and right LE Duration 40 Lymphedema Wrapping Body Location ernestine LE's Materials Tubigrip (patient didn't bring wraps previously issued, and c/o sliding down, may try again next session). Right LE: size K (Coban on foot and lower leg) Left LE: size G for foot, size J for lower leg Patient Education Lymphedema Pathology issued written handout Lymphedema Prevention issued written handout Lymphedema Precautions issued written handout Compression Garments discussion PT-OP-T Assessment and Plan Start: 07/03/19 10:30 Freq: Status: Active Protocol: Document 09/23/19 16:01 [facility] (Rec: 09/23/19 18:10 [facility] [id number]) Physical Therapy Assessment Goals 4 Impairment weakness bilateral LE's Senior Care Goal (LTG) Patient to demonstrate improvement in LE strength to at least 4/5 throughout LTG Duration 10/04/19 3 Impairment difficulty walking community distances Senior Care Goal (LTG) Patient able to consistently ambulate community distances wearing appropriate compression to bilateral LEs LTG Duration 10/04/19 2 Impairment pain bilateral LE's Senior Care Goal (LTG) Decrease pain to no greater than 3/10 with decrease in lymphedema. LTG Duration 10/04/19 1 Impairment function-limiting lymphedema bilateral LE's Short Term Goal (STG) Educate patient in all aspects of lymphedema self-care including self-bandaging, skin care, self-MLD, exercise. STG Duration 07/17/19 Senior Care Goal (LTG) Decrease edema to stable level to allow patient to be able to be fit with appropriate compression for home management. Patient to be independent with all components of self-care to include skin care, self MLD, exercise, and compression use. LTG Duration 10/04/19 Assessment Summary Assessment No progress due to patient on hold due to Covid19 with PT clinic shut-down. Returned for PT today with worsening edema and multiple medical issues complicating her edema and overall function. She has very low activity tolerance, obesity, asthma, ovarian cysts , right LE wound, hernia, has very poor tolerance for exercise or activity. Physical Therapy Plan Frequency and Duration Frequency of Treatment 4x/Week Duration of Treatment 8 wks Plan of Care Start Date 07/03/19 Plan of Care End Date 10/04/19 Therapeutic Interventions Therapeutic Interventions Lymphedema Management,Self- Care/Home Management, Therapeutic Exercises Next Visit Focus/Plan Next Note Type Treatment Note Next Visit Plan Continue lymphedema management , Review lymphedema materials issued to patient, further discussion of compression options, feel compression alternative may be best option though cost may be prohibitive.
--- NOTE | 2019-09-30 17:18 | PT.OTN ---
Current Diagnoses Lymphedema, not elsewhere classified (09/30/19) Pain in right lower leg (09/30/19) Pain in left lower leg (09/30/19) Difficulty in walking, not elsewhere classified (09/30/19) Weakness (09/30/19) Physical Therapy Treatment Note PT-OP-A Visit Information Start: 07/03/19 10:30 Freq: Status: Active Protocol: Document 09/30/19 09:44 SAK (Rec: 09/30/19 09:56 SAK [id number]) Out-Patient Physical Therapy Visit Information Visit Information Visit Type Treatment Note Visit Start Time 09:45 Visit Stop Time 11:15 Total Visit Minutes 90 Visit Number 3 Number of [employer] MANAGER Visits 0 Evaluation Information Evaluation Date 07/03/19 Precautions Precautions wound right LE PT-OP-B Current Condition Start: 07/03/19 10:30 Freq: Status: Active Protocol: Document 07/03/19 10:36 SAK (Rec: 07/03/19 12:00 SAK [id number]) Current Condition History of Current Condition Onset Date 1 1/2 years Current Complaints bilateral LE's History of Current Condition Prior to 1 1/2 years ago, legs would swell sometimes but it would go down, never stayed. Gradual worsening, swelling would stay longer periods of time, then got to the point didn't go away, just got worse and worse. States physician kept putting her on diuretics, not helpful. In ER in January for wound posterior right LE; continues with wound care department at [facility]. Has PE, on Warfarin. History of hernia surgery, appendix removal, 2 C sections , several ovarian cysts states noone wants to touch it. Right ovary removed due to a cyst. Compression stockings hard to get on and she states they don't seem to be helpful, not sure of compression level , doesn't have stockings with her this date. Very limited mobility, reports difficult to get to the bathroom at times. Prior Treatments and Tests diuretics compression stockings Treatment Goals Patient/Caregiver Goals Decrease swelling, be able to self-managel. Prior Functional Status Baseline Function- ADL's Independent Baseline Function- Mobility Independent Baseline Function- Gait independent no device Baseline Function- Recreation/Hobbies no limitations Current Functional Impairments (Reported) Functional Limitations- ADL's takes increased time Functional Limitations- Mobility/Gait decreased tolerance due to heaviness of her legs as well as pain Functional Limitations- Work/School unable Functional Limitations- Recreation/ limited to seated Hobbies Personal Factors Other Personal Factors That May Effect PMH: fibromyalgia Therapy/Recovery PT-OP-C Subjective Start: 07/03/19 10:30 Freq: Status: Active Protocol: Document 09/30/19 09:44 SAK (Rec: 09/30/19 09:56 SAK [id number]) OP-PT Subjective Patient Comments Patient Comments Has been prescribed a new, topical antibiotic for her right LE wound. Tried to do more exercises as instructed. Did not get through all the information issued last session regarding lymphedema exercises and other information. Did not call [facility] yet regarding compression options. PT-OP-E Functional Tests Start: 07/03/19 10:30 Freq: Status: Active Protocol: Document 07/03/19 10:36 [facility] (Rec: 07/06/19 14:41 [facility] [id number]) Functional Tests 2 Minute Walk Test Distance 75 ft PT-OP-J Posture/Palpation/Skin Start: 07/03/19 10:30 Freq: Status: Active Protocol: Document 07/03/19 10:36 [facility] (Rec: 07/06/19 14:41 [facility] [id number]) Palpation Assessment Location bilateral LE Palpation Findings Edema,Soft Tissue Tightness Palpation Details Fibrosis bilateral distal LE's between knee and ankles, though difficult to fully assess due to Coban on right LE Skin Assessment Other Assessments Skin Assessment Comments Right LE covered with Coban from knee to foot by wound care, not removed this date Mild hemosideran staining noted on left lower leg. PT-OP-K Range of Motion Start: 07/03/19 10:30 Freq: Status: Active Protocol: Document 07/03/19 10:36 [facility] (Rec: 07/06/19 14:41 [facility] [id number]) Hip Goniometric Range of Motion Hip ernestine Hip ROM WFL Yes Knee Goniometric Range of Motion Knee ernestine Knee ROM WFL Yes Ankle and Foot Goniometric Range of Motion Ankle and Foot ernestine Ankle/Foot ROM WFL Yes PT-OP-M Strength Start: 07/03/19 10:30 Freq: Status: Active Protocol: Document 07/03/19 10:36 SAK (Rec: 07/06/19 14:41 [facility] [id number]) Hip Strength Hip Manual Muscle Testing ernestine Flexion (L2) 3- Fair- Extension (S1) 3- Fair- Abduction 3 Fair External Rotation 3+ Fair+ Internal Rotation 3+ Fair+ Knee Strength Knee Manual Muscle Testing ernestine Flexion (S2) 4- Good- Extension (L3) 4- Good- Ankle/Foot Strength Ankle and Foot Manual Muscle Testing ernestine Dorsiflexion (L4) 4 Good Plantarflexion (S1) 4 Good PT-OP-N Lymphedema Start: 07/03/19 10:30 Freq: Status: Active Protocol: Document 07/03/19 10:36 [facility] (Rec: 07/06/19 14:41 [facility] [id number]) Lymphedema Measurements Lower Extremity Circumference Measurements Left Affected MT Heads 28 cm Medial Malleolus 28.7 cm 10 cm From Medial Malleolus 39.8 cm 20 cm From Medial Malleolus 45.6 cm 30 cm From Medial Malleolus 67 cm 40 cm From Medial Malleolus 72.8 cm 50 cm From Medial Malleolus 69.2 cm 60 cm From Medial Malleolus 86 cm 70 cm From Medial Malleolus 90.1 cm 80 cm From Medial Malleolus 90 cm Right Affected MT Heads 28 cm Medial Malleolus 37.3 cm 10 cm From Medial Malleolus 59.2 cm 20 cm From Medial Malleolus 73.2 cm 30 cm From Medial Malleolus 80.4 cm 40 cm From Medial Malleolus 75.5 cm 50 cm From Medial Malleolus 86.4 cm 60 cm From Medial Malleolus 87.6 cm 70 cm From Medial Malleolus 90 cm Comments Lymphedema Comments midfoot 28.1 cm right, 28.7 cm left toes mildly swollen bilaterally. PT-OP-Q Treatments Start: 07/03/19 10:30 Freq: Status: Active Protocol: Document 09/30/19 09:44 [facility] (Rec: 09/30/19 09:56 [facility] [id number]) Lymphedema Treatment Manual Lymphatic Drainage Location Trunk and right LE Duration 40 Lymphedema Wrapping Body Location ernestine LE's Materials right: Tubigrip size J lower leg, size G for foot (no wrapping due to patient needing to change her dressing on her wound when she gets home after PT today. (given wrapping materials and has instructions for self-wrapping ) left: Artiflex and Comprilan toes to knee Patient Education Compression Garments given picture, discussed compression alternative Other finances will be a limiting factor for purchasing compression garment PT-OP-T Assessment and Plan Start: 07/03/19 10:30 Freq: Status: Active Protocol: Document 09/30/19 09:44 EDGAR (Rec: 09/30/19 09:56 [facility] [id number]) Physical Therapy Assessment Other Concerns Barriers to Rehabilitation Low activity level Fibromyalgia, hernia, arthritis Goals 4 Impairment weakness bilateral LE's [facility] Goal (LTG) Patient to demonstrate improvement in LE strength to at least 4/5 throughout 09/30/19: No progress due to Covid19 LTG Duration 12/29/19 3 Impairment difficulty walking community distances [facility] Goal (LTG) Patient able to consistently ambulate community distances wearing appropriate compression to bilateral LEs 09/30/19: no progress due to patient on hold due to Covid19 LTG Duration 12/29/19 2 Impairment pain bilateral LE's [facility] Goal (LTG) Decrease pain to no greater than 3/10 with decrease in lymphedema. 09/30/19: no progress due to patient on hold due to Covid19 LTG Duration 12/29/19 1 Impairment function-limiting lymphedema bilateral LE's Short Term Goal (STG) Educate patient in all aspects of lymphedema self-care including self-bandaging, skin care, self-MLD, exercise. 09/30/19: good goal progress STG Duration 10/14/19 [facility] Goal (LTG) Decrease edema to stable level to allow patient to be able to be fit with appropriate compression for home management. Patient to be independent with all components of self-care to include skin care, self MLD, exercise, and compression use. LTG Duration 11/30/19 Assessment Summary Assessment No progress due to patient on hold due to Covid19 with PT clinic shut-down. Returned for PT today with worsening edema and multiple medical issues complicating her edema and overall function. She has very low activity tolerance, obesity, asthma, ovarian cysts , right LE wound, hernia, has very poor tolerance for exercise or activity Physical Therapy Plan Frequency and Duration Frequency of Treatment 3x/Week Duration of Treatment 12 wks Plan of Care Start Date 09/30/19 Plan of Care End Date 12/29/19 Therapeutic Interventions Therapeutic Interventions Lymphedema Management,Self- Care/Home Management, Therapeutic Exercises Next Visit Focus/Plan Next Note Type Treatment Note Next Visit Plan Continue lymphedema management , Review lymphedema materials issued to patient, further discussion of compression options, feel compression alternative may be best option though cost may be prohibitive.
--- NOTE | 2019-10-07 17:32 | PT.OTN ---
Current Diagnoses Lymphedema, not elsewhere classified (10/07/19) Pain in right lower leg (10/07/19) Pain in left lower leg (10/07/19) Difficulty in walking, not elsewhere classified (10/07/19) Weakness (10/07/19) Physical Therapy Treatment Note PT-OP-A Visit Information Start: 07/03/19 10:30 Freq: Status: Active Protocol: Document 10/07/19 17:20 [facility] (Rec: 10/07/19 17:32 [facility] [id number]) Out-Patient Physical Therapy Visit Information Visit Information Visit Type Treatment Note Visit Start Time 13:00 Visit Stop Time 14:30 Total Visit Minutes 90 Visit Number 4 Number of GAME ADVISOR Visits 0 Evaluation Information Evaluation Date 07/03/19 Precautions Precautions wound right LE PT-OP-B Current Condition Start: 07/03/19 10:30 Freq: Status: Active Protocol: Document 07/03/19 10:36 SAK (Rec: 07/03/19 12:00 [facility] [id number]) Current Condition History of Current Condition Onset Date 1 1/2 years Current Complaints bilateral LE's History of Current Condition Prior to 1 1/2 years ago, legs would swell sometimes but it would go down, never stayed. Gradual worsening, swelling would stay longer periods of time, then got to the point didn't go away, just got worse and worse. States physician kept putting her on diuretics, not helpful. In ER in January for wound posterior right LE; continues with wound care department at [facility]. Has PE, on Warfarin. History of hernia surgery, appendix removal, 2 C sections , several ovarian cysts states noone wants to touch it. Right ovary removed due to a cyst. Compression stockings hard to get on and she states they don't seem to be helpful, not sure of compression level , doesn't have stockings with her this date. Very limited mobility, reports difficult to get to the bathroom at times. Prior Treatments and Tests diuretics compression stockings Treatment Goals Patient/Caregiver Goals Decrease swelling, be able to self-managel. Prior Functional Status Baseline Function- ADL's Independent Baseline Function- Mobility Independent Baseline Function- Gait independent no device Baseline Function- Recreation/Hobbies no limitations Current Functional Impairments (Reported) Functional Limitations- ADL's takes increased time Functional Limitations- Mobility/Gait decreased tolerance due to heaviness of her legs as well as pain Functional Limitations- Work/School unable Functional Limitations- Recreation/ limited to seated Hobbies Personal Factors Other Personal Factors That May Effect PMH: fibromyalgia Therapy/Recovery PT-OP-C Subjective Start: 07/03/19 10:30 Freq: Status: Active Protocol: Document 10/07/19 17:20 SAK (Rec: 10/07/19 17:32 [facility] [id number]) OP-PT Subjective Patient Comments Patient Comments Patient reports her daughter has been unable to wrap her leg or help much even with putting tubigrip on her due to having some strange neurological symptoms including tremors and falls which resulted in ER visit and a referral to a neurologist. Patient comes to PT with 1 layer tubigrip right lower leg but not foot, nothing on left LE. PT-OP-E Functional Tests Start: 07/03/19 10:30 Freq: Status: Active Protocol: Document 07/03/19 10:36 [facility] (Rec: 07/06/19 14:41 [facility] [id number]) Functional Tests 2 Minute Walk Test Distance 75 ft PT-OP-J Posture/Palpation/Skin Start: 07/03/19 10:30 Freq: Status: Active Protocol: Document 07/03/19 10:36 [facility] (Rec: 07/06/19 14:41 [facility] [id number]) Palpation Assessment Location bilateral LE Palpation Findings Edema,Soft Tissue Tightness Palpation Details Fibrosis bilateral distal LE's between knee and ankles, though difficult to fully assess due to Coban on right LE Skin Assessment Other Assessments Skin Assessment Comments Right LE covered with Coban from knee to foot by wound care, not removed this date Mild hemosideran staining noted on left lower leg. PT-OP-K Range of Motion Start: 07/03/19 10:30 Freq: Status: Active Protocol: Document 07/03/19 10:36 SAK (Rec: 07/06/19 14:41 [facility] [id number]) Hip Goniometric Range of Motion Hip ernestine Hip ROM WFL Yes Knee Goniometric Range of Motion Knee ernestine Knee ROM WFL Yes Ankle and Foot Goniometric Range of Motion Ankle and Foot ernestine Ankle/Foot ROM WFL Yes PT-OP-M Strength Start: 07/03/19 10:30 Freq: Status: Active Protocol: Document 07/03/19 10:36 SAK (Rec: 07/06/19 14:41 [facility] [id number]) Hip Strength Hip Manual Muscle Testing ernestine Flexion (L2) 3- Fair- Extension (S1) 3- Fair- Abduction 3 Fair External Rotation 3+ Fair+ Internal Rotation 3+ Fair+ Knee Strength Knee Manual Muscle Testing ernestine Flexion (S2) 4- Good- Extension (L3) 4- Good- Ankle/Foot Strength Ankle and Foot Manual Muscle Testing ernestine Dorsiflexion (L4) 4 Good Plantarflexion (S1) 4 Good PT-OP-N Lymphedema Start: 07/03/19 10:30 Freq: Status: Active Protocol: Document 07/03/19 10:36 [facility] (Rec: 07/06/19 14:41 [facility] [id number]) Lymphedema Measurements Lower Extremity Circumference Measurements Left Affected MT Heads 28 cm Medial Malleolus 28.7 cm 10 cm From Medial Malleolus 39.8 cm 20 cm From Medial Malleolus 45.6 cm 30 cm From Medial Malleolus 67 cm 40 cm From Medial Malleolus 72.8 cm 50 cm From Medial Malleolus 69.2 cm 60 cm From Medial Malleolus 86 cm 70 cm From Medial Malleolus 90.1 cm 80 cm From Medial Malleolus 90 cm Right Affected MT Heads 28 cm Medial Malleolus 37.3 cm 10 cm From Medial Malleolus 59.2 cm 20 cm From Medial Malleolus 73.2 cm 30 cm From Medial Malleolus 80.4 cm 40 cm From Medial Malleolus 75.5 cm 50 cm From Medial Malleolus 86.4 cm 60 cm From Medial Malleolus 87.6 cm 70 cm From Medial Malleolus 90 cm Comments Lymphedema Comments midfoot 28.1 cm right, 28.7 cm left toes mildly swollen bilaterally. PT-OP-Q Treatments Start: 07/03/19 10:30 Freq: Status: Active Protocol: Document 10/07/19 17:20 [facility] (Rec: 10/07/19 17:32 [facility] [id number]) Cardio Equipment Recumbent Stepper (Sci-Fit) Duration (Minutes) 3 Resistance 1 Seat Position 9 Self-Care/Home Management Treatment Education Other Education Need for consistent compression Need for increased exercise and activity at home Compression garment for right LE should be covered due to wound. Lymphedema Treatment Manual Lymphatic Drainage Location Trunk and right LE Duration 40 Comments *was going to do trial pneumatic pump but unable due to pump sleeve not large enough Lymphedema Wrapping Body Location ernestine LE's Materials right: Artiflex and Comprilan toes to knee left: Tubigrip size J lower leg, size G for foot (due to time constraints.) Sequential Lymphedema Exercises Location bilateral LE's Comments 10 reps ea Patient Education Compression Garments discussion PT-OP-T Assessment and Plan Start: 07/03/19 10:30 Freq: Status: Active Protocol: Document 10/07/19 17:20 [facility] (Rec: 10/07/19 17:32 [facility] [id number]) Physical Therapy Assessment Goals 4 Impairment weakness bilateral LE's [employer] Goal (LTG) Patient to demonstrate improvement in LE strength to at least 4/5 throughout 09/30/19: No progress due to Covid19 LTG Duration 12/29/19 3 Impairment difficulty walking community distances [employer] Goal (LTG) Patient able to consistently ambulate community distances wearing appropriate compression to bilateral LEs 09/30/19: no progress due to patient on hold due to Covid19 LTG Duration 12/29/19 2 Impairment pain bilateral LE's [employer] Goal (LTG) Decrease pain to no greater than 3/10 with decrease in lymphedema. 09/30/19: no progress due to patient on hold due to Covid19 LTG Duration 12/29/19 1 Impairment function-limiting lymphedema bilateral LE's Short Term Goal (STG) Educate patient in all aspects of lymphedema self-care including self-bandaging, skin care, self-MLD, exercise. 09/30/19: good goal progress STG Duration 10/14/19 [employer] Goal (LTG) Decrease edema to stable level to allow patient to be able to be fit with appropriate compression for home management. Patient to be independent with all components of self-care to include skin care, self MLD, exercise, and compression use. LTG Duration 11/30/19 Assessment Summary Assessment Patient poorly compliant with compression due to low activity tolerance and daughter unable to help. Unable to use pneumatic pump due to size of patient's leg. Patient's weight 472.6 today. Poor tolerance for Sci-Fit recumbant elliptical today due to c/o knee pain Physical Therapy Plan Frequency and Duration Frequency of Treatment 3x/Week Duration of Treatment 12 wks Plan of Care Start Date 09/30/19 Plan of Care End Date 12/29/19 Therapeutic Interventions Therapeutic Interventions Lymphedema Management,Self- Care/Home Management, Therapeutic Exercises Next Visit Focus/Plan Next Note Type Treatment Note Next Visit Plan Primary focus will be compression with wrapping of both LE's including toes. Contact [facility] with patient measurements and discuss compression options and insurance coverage possibilities due to financial constraints of patient.
--- NOTE | 2019-10-09 16:27 | PT.OTN ---
Current Diagnoses Lymphedema, not elsewhere classified (10/09/19) Pain in right lower leg (10/09/19) Pain in left lower leg (10/09/19) Difficulty in walking, not elsewhere classified (10/09/19) Weakness (10/09/19) Physical Therapy Treatment Note PT-OP-A Visit Information Start: 07/03/19 10:30 Freq: Status: Active Protocol: Document 10/09/19 16:15 SAK (Rec: 10/09/19 16:27 [facility] [id number]) Out-Patient Physical Therapy Visit Information Visit Information Visit Type Treatment Note Visit Start Time 13:00 Visit Stop Time 14:30 Total Visit Minutes 90 Visit Number 5 Number of HEAD USHER Visits 0 Evaluation Information Evaluation Date 07/03/19 Precautions Precautions wound right LE PT-OP-B Current Condition Start: 07/03/19 10:30 Freq: Status: Active Protocol: Document 07/03/19 10:36 SAK (Rec: 07/03/19 12:00 [facility] [id number]) Current Condition History of Current Condition Onset Date 1 1/2 years Current Complaints bilateral LE's History of Current Condition Prior to 1 1/2 years ago, legs would swell sometimes but it would go down, never stayed. Gradual worsening, swelling would stay longer periods of time, then got to the point didn't go away, just got worse and worse. States physician kept putting her on diuretics, not helpful. In ER in January for wound posterior right LE; continues with wound care department at [facility]. Has PE, on Warfarin. History of hernia surgery, appendix removal, 2 C sections , several ovarian cysts states noone wants to touch it. Right ovary removed due to a cyst. Compression stockings hard to get on and she states they don't seem to be helpful, not sure of compression level , doesn't have stockings with her this date. Very limited mobility, reports difficult to get to the bathroom at times. Prior Treatments and Tests diuretics compression stockings Treatment Goals Patient/Caregiver Goals Decrease swelling, be able to self-managel. Prior Functional Status Baseline Function- ADL's Independent Baseline Function- Mobility Independent Baseline Function- Gait independent no device Baseline Function- Recreation/Hobbies no limitations Current Functional Impairments (Reported) Functional Limitations- ADL's takes increased time Functional Limitations- Mobility/Gait decreased tolerance due to heaviness of her legs as well as pain Functional Limitations- Work/School unable Functional Limitations- Recreation/ limited to seated Hobbies Personal Factors Other Personal Factors That May Effect PMH: fibromyalgia Therapy/Recovery PT-OP-C Subjective Start: 07/03/19 10:30 Freq: Status: Active Protocol: Document 10/09/19 16:15 SAK (Rec: 10/09/19 16:27 SAK [id number]) OP-PT Subjective Patient Comments Patient Comments Reports she felt her leg reduced in size with the lymphedema wraps, had to remove after 1 day due to drainage from wound, daughter didn't feel comfortable rewrapping, though able to do wound dressing covered by Coban PT-OP-E Functional Tests Start: 07/03/19 10:30 Freq: Status: Active Protocol: Document 07/03/19 10:36 SAK (Rec: 07/06/19 14:41 [facility] [id number]) Functional Tests 2 Minute Walk Test Distance 75 ft PT-OP-J Posture/Palpation/Skin Start: 07/03/19 10:30 Freq: Status: Active Protocol: Document 07/03/19 10:36 SAK (Rec: 07/06/19 14:41 [facility] [id number]) Palpation Assessment Location bilateral LE Palpation Findings Edema,Soft Tissue Tightness Palpation Details Fibrosis bilateral distal LE's between knee and ankles, though difficult to fully assess due to Coban on right LE Skin Assessment Other Assessments Skin Assessment Comments Right LE covered with Coban from knee to foot by wound care, not removed this date Mild hemosideran staining noted on left lower leg. PT-OP-K Range of Motion Start: 07/03/19 10:30 Freq: Status: Active Protocol: Document 07/03/19 10:36 SAK (Rec: 07/06/19 14:41 [facility] [id number]) Hip Goniometric Range of Motion Hip erik Hip ROM WFL Yes Knee Goniometric Range of Motion Knee erik Knee ROM WFL Yes Ankle and Foot Goniometric Range of Motion Ankle and Foot erik Ankle/Foot ROM WFL Yes PT-OP-M Strength Start: 07/03/19 10:30 Freq: Status: Active Protocol: Document 07/03/19 10:36 SAK (Rec: 07/06/19 14:41 [facility] [id number]) Hip Strength Hip Manual Muscle Testing erik Flexion (L2) 3- Fair- Extension (S1) 3- Fair- Abduction 3 Fair External Rotation 3+ Fair+ Internal Rotation 3+ Fair+ Knee Strength Knee Manual Muscle Testing erik Flexion (S2) 4- Good- Extension (L3) 4- Good- Ankle/Foot Strength Ankle and Foot Manual Muscle Testing erik Dorsiflexion (L4) 4 Good Plantarflexion (S1) 4 Good PT-OP-N Lymphedema Start: 07/03/19 10:30 Freq: Status: Active Protocol: Document 07/03/19 10:36 [facility] (Rec: 07/06/19 14:41 [facility] [id number]) Lymphedema Measurements Lower Extremity Circumference Measurements Left Affected MT Heads 28 cm Medial Malleolus 28.7 cm 10 cm From Medial Malleolus 39.8 cm 20 cm From Medial Malleolus 45.6 cm 30 cm From Medial Malleolus 67 cm 40 cm From Medial Malleolus 72.8 cm 50 cm From Medial Malleolus 69.2 cm 60 cm From Medial Malleolus 86 cm 70 cm From Medial Malleolus 90.1 cm 80 cm From Medial Malleolus 90 cm Right Affected MT Heads 28 cm Medial Malleolus 37.3 cm 10 cm From Medial Malleolus 59.2 cm 20 cm From Medial Malleolus 73.2 cm 30 cm From Medial Malleolus 80.4 cm 40 cm From Medial Malleolus 75.5 cm 50 cm From Medial Malleolus 86.4 cm 60 cm From Medial Malleolus 87.6 cm 70 cm From Medial Malleolus 90 cm Comments Lymphedema Comments midfoot 28.1 cm right, 28.7 cm left toes mildly swollen bilaterally. PT-OP-Q Treatments Start: 07/03/19 10:30 Freq: Status: Active Protocol: Document 10/09/19 16:15 [facility] (Rec: 10/09/19 16:27 [facility] [id number]) Cardio Equipment Recumbent Stepper (Sci-Fit) Other didn't feel up to trying due to asthma attack Lymphedema Treatment Manual Lymphatic Drainage Location Trunk and erik LE Duration 40 Lymphedema Wrapping Body Location erik LE's Materials Erik: toe wraps, Artiflex and Comprilan toes to knee Sequential Lymphedema Exercises Location bilateral LE's Comments 10 reps ea PT-OP-T Assessment and Plan Start: 07/03/19 10:30 Freq: Status: Active Protocol: Document 10/09/19 16:15 EDGAR (Rec: 10/09/19 16:27 [facility] [id number]) Physical Therapy Assessment Other Concerns Barriers to Rehabilitation Low activity level Fibromyalgia, hernia, arthritis, asthma Goals 4 Impairment weakness bilateral LE's Employee Relations Director Goal (LTG) Patient to demonstrate improvement in LE strength to at least 4/5 throughout 09/30/19: No progress due to Covid19 LTG Duration 12/29/19 3 Impairment difficulty walking community distances Snf Goal (LTG) Patient able to consistently ambulate community distances wearing appropriate compression to bilateral LEs 09/30/19: no progress due to patient on hold due to Covid19 LTG Duration 12/29/19 2 Impairment pain bilateral LE's Employee Relations Director Goal (LTG) Decrease pain to no greater than 3/10 with decrease in lymphedema. 09/30/19: no progress due to patient on hold due to Covid19 LTG Duration 12/29/19 1 Impairment function-limiting lymphedema bilateral LE's Short Term Goal (STG) Educate patient in all aspects of lymphedema self-care including self-bandaging, skin care, self-MLD, exercise. 09/30/19: good goal progress STG Duration 10/14/19 Employee Relations Director Goal (LTG) Decrease edema to stable level to allow patient to be able to be fit with appropriate compression for home management. Patient to be independent with all components of self-care to include skin care, self MLD, exercise, and compression use. LTG Duration 11/30/19 Assessment Summary Assessment patient pleased she was able to transfer sit to supine without assist for her right LE today. Some decrease in right LE measurements, Tubigrip not adequat for left LE and showing some increase, lymphedema wrapping done on left leg as well today. Physical Therapy Plan Frequency and Duration Frequency of Treatment 3x/Week Duration of Treatment 12 wks Plan of Care Start Date 09/30/19 Plan of Care End Date 12/29/19 Therapeutic Interventions Therapeutic Interventions Lymphedema Management,Self- Care/Home Management, Therapeutic Exercises Next Visit Focus/Plan Next Note Type Treatment Note Next Visit Plan Send full measurements erik LE' s to [facility], continue Lymphedema management. Train daughter to do lymphedema wrapping as possible.
--- NOTE | 2019-10-14 16:56 | PT.OTN ---
Current Diagnoses Lymphedema, not elsewhere classified (10/14/19) Pain in right lower leg (10/14/19) Pain in left lower leg (10/14/19) Difficulty in walking, not elsewhere classified (10/14/19) Weakness (10/14/19) Physical Therapy Treatment Note PT-OP-A Visit Information Start: 07/03/19 10:30 Freq: Status: Active Protocol: Document 10/14/19 12:57 SAK (Rec: 10/14/19 13:10 SAK [id number]) Out-Patient Physical Therapy Visit Information Visit Information Visit Type Treatment Note Visit Start Time 13:00 Visit Stop Time 14:30 Total Visit Minutes 90 Visit Number 6 Number of OIL AND GAS WELL TREATMENT OPERATOR Visits 0 Evaluation Information Evaluation Date 07/03/19 Precautions Precautions wound right LE PT-OP-B Current Condition Start: 07/03/19 10:30 Freq: Status: Active Protocol: Document 07/03/19 10:36 SAK (Rec: 07/03/19 12:00 SAK [id number]) Current Condition History of Current Condition Onset Date 1 1/2 years Current Complaints bilateral LE's History of Current Condition Prior to 1 1/2 years ago, legs would swell sometimes but it would go down, never stayed. Gradual worsening, swelling would stay longer periods of time, then got to the point didn't go away, just got worse and worse. States physician kept putting her on diuretics, not helpful. In ER in January for wound posterior right LE; continues with wound care department at [facility]. Has PE, on Warfarin. History of hernia surgery, appendix removal, 2 C sections , several ovarian cysts states noone wants to touch it. Right ovary removed due to a cyst. Compression stockings hard to get on and she states they don't seem to be helpful, not sure of compression level , doesn't have stockings with her this date. Very limited mobility, reports difficult to get to the bathroom at times. Prior Treatments and Tests diuretics compression stockings Treatment Goals Patient/Caregiver Goals Decrease swelling, be able to self-managel. Prior Functional Status Baseline Function- ADL's Independent Baseline Function- Mobility Independent Baseline Function- Gait independent no device Baseline Function- Recreation/Hobbies no limitations Current Functional Impairments (Reported) Functional Limitations- ADL's takes increased time Functional Limitations- Mobility/Gait decreased tolerance due to heaviness of her legs as well as pain Functional Limitations- Work/School unable Functional Limitations- Recreation/ limited to seated Hobbies Personal Factors Other Personal Factors That May Effect PMH: fibromyalgia Therapy/Recovery PT-OP-C Subjective Start: 07/03/19 10:30 Freq: Status: Active Protocol: Document 10/14/19 12:57 SAK (Rec: 10/14/19 13:10 SAK [id number]) OP-PT Subjective Patient Comments Patient Comments Reports poor sleep due to pain and continued drainage right LE. Has hard time leavingwraps on for very long, becomes saturated with drainage. Reports her daughter not home much to wrap her LE's. Hasn't heard from [facility] yet. PT-OP-E Functional Tests Start: 07/03/19 10:30 Freq: Status: Active Protocol: Document 07/03/19 10:36 SAK (Rec: 07/06/19 14:41 [facility] [id number]) Functional Tests 2 Minute Walk Test Distance 75 ft PT-OP-J Posture/Palpation/Skin Start: 07/03/19 10:30 Freq: Status: Active Protocol: Document 07/03/19 10:36 SAK (Rec: 07/06/19 14:41 [facility] [id number]) Palpation Assessment Location bilateral LE Palpation Findings Edema,Soft Tissue Tightness Palpation Details Fibrosis bilateral distal LE's between knee and ankles, though difficult to fully assess due to Coban on right LE Skin Assessment Other Assessments Skin Assessment Comments Right LE covered with Coban from knee to foot by wound care, not removed this date Mild hemosideran staining noted on left lower leg. PT-OP-K Range of Motion Start: 07/03/19 10:30 Freq: Status: Active Protocol: Document 07/03/19 10:36 SAK (Rec: 07/06/19 14:41 [facility] [id number]) Hip Goniometric Range of Motion Hip erik Hip ROM WFL Yes Knee Goniometric Range of Motion Knee erik Knee ROM WFL Yes Ankle and Foot Goniometric Range of Motion Ankle and Foot erik Ankle/Foot ROM WFL Yes PT-OP-M Strength Start: 07/03/19 10:30 Freq: Status: Active Protocol: Document 07/03/19 10:36 SAK (Rec: 07/06/19 14:41 [facility] [id number]) Hip Strength Hip Manual Muscle Testing erik Flexion (L2) 3- Fair- Extension (S1) 3- Fair- Abduction 3 Fair External Rotation 3+ Fair+ Internal Rotation 3+ Fair+ Knee Strength Knee Manual Muscle Testing erik Flexion (S2) 4- Good- Extension (L3) 4- Good- Ankle/Foot Strength Ankle and Foot Manual Muscle Testing erik Dorsiflexion (L4) 4 Good Plantarflexion (S1) 4 Good PT-OP-N Lymphedema Start: 07/03/19 10:30 Freq: Status: Active Protocol: Document 07/03/19 10:36 [facility] (Rec: 07/06/19 14:41 [facility] [id number]) Lymphedema Measurements Lower Extremity Circumference Measurements Left Affected MT Heads 28 cm Medial Malleolus 28.7 cm 10 cm From Medial Malleolus 39.8 cm 20 cm From Medial Malleolus 45.6 cm 30 cm From Medial Malleolus 67 cm 40 cm From Medial Malleolus 72.8 cm 50 cm From Medial Malleolus 69.2 cm 60 cm From Medial Malleolus 86 cm 70 cm From Medial Malleolus 90.1 cm 80 cm From Medial Malleolus 90 cm Right Affected MT Heads 28 cm Medial Malleolus 37.3 cm 10 cm From Medial Malleolus 59.2 cm 20 cm From Medial Malleolus 73.2 cm 30 cm From Medial Malleolus 80.4 cm 40 cm From Medial Malleolus 75.5 cm 50 cm From Medial Malleolus 86.4 cm 60 cm From Medial Malleolus 87.6 cm 70 cm From Medial Malleolus 90 cm Comments Lymphedema Comments midfoot 28.1 cm right, 28.7 cm left toes mildly swollen bilaterally. PT-OP-Q Treatments Start: 07/03/19 10:30 Freq: Status: Active Protocol: Document 10/14/19 12:57 [facility] (Rec: 10/14/19 13:10 [facility] [id number]) Cardio Equipment Recumbent Stepper (Sci-Fit) Other didn't feel up to trying due to asthma attack Self-Care/Home Management Treatment Education Other Education Need for consistent compression Need for increased exercise and activity at home Lymphedema Treatment Manual Lymphatic Drainage Location Trunk and erik LE Duration 40 Lymphedema Wrapping Body Location erik LE's Materials Erik: toe wraps, Artiflex and Comprilan toes to knee Sequential Lymphedema Exercises Location bilateral LE's Comments 10 reps ea PT-OP-T Assessment and Plan Start: 07/03/19 10:30 Freq: Status: Active Protocol: Document 10/14/19 12:57 EDGAR (Rec: 10/14/19 16:56 [facility] [id number]) Physical Therapy Assessment Other Concerns Barriers to Rehabilitation Low activity level Fibromyalgia, hernia, arthritis, asthma Goals 4 Impairment weakness bilateral LE's Personnel Clerks Supervisor Goal (LTG) Patient to demonstrate improvement in LE strength to at least 4/5 throughout 09/30/19: No progress due to Covid19 LTG Duration 12/29/19 3 Impairment difficulty walking community distances Jail Goal (LTG) Patient able to consistently ambulate community distances wearing appropriate compression to bilateral LEs 09/30/19: no progress due to patient on hold due to Covid19 LTG Duration 12/29/19 2 Impairment pain bilateral LE's Personnel Clerks Supervisor Goal (LTG) Decrease pain to no greater than 3/10 with decrease in lymphedema. 09/30/19: no progress due to patient on hold due to Covid19 LTG Duration 12/29/19 1 Impairment function-limiting lymphedema bilateral LE's Short Term Goal (STG) Educate patient in all aspects of lymphedema self-care including self-bandaging, skin care, self-MLD, exercise. 09/30/19: good goal progress STG Duration 10/14/19 Personnel Clerks Supervisor Goal (LTG) Decrease edema to stable level to allow patient to be able to be fit with appropriate compression for home management. Patient to be independent with all components of self-care to include skin care, self MLD, exercise, and compression use. LTG Duration 11/30/19 Assessment Summary Assessment Patient weight 474.7 today. Poor ability to comply with consistent compression of LE's at home. Poor sleep, patient not feeling well and verbalizes frustration with her lack of healing and difficulty with compression at home. Physical Therapy Plan Frequency and Duration Frequency of Treatment 3x/Week Duration of Treatment 12 wks Plan of Care Start Date 09/30/19 Plan of Care End Date 12/29/19 Therapeutic Interventions Therapeutic Interventions Lymphedema Management,Self- Care/Home Management, Therapeutic Exercises Next Visit Focus/Plan Next Note Type Treatment Note Next Visit Plan Patient to contact [facility] as she hasn't heard back yet. Discuss patient case with physician regarding lack of ability to comply at home.
--- NOTE | 2019-10-16 11:34 | PT-OP ANOTE ---
cancelled PT appointment
--- NOTE | 2019-10-21 12:12 | PT.OTN ---
Current Diagnoses Lymphedema, not elsewhere classified (10/21/19) Pain in right lower leg (10/21/19) Pain in left lower leg (10/21/19) Difficulty in walking, not elsewhere classified (10/21/19) Weakness (10/21/19) Physical Therapy Treatment Note PT-OP-A Visit Information Start: 07/03/19 10:30 Freq: Status: Active Protocol: Document 10/21/19 10:31 SAK (Rec: 10/21/19 10:43 SAK [id number]) Out-Patient Physical Therapy Visit Information Visit Information Visit Type Treatment Note Precautions Precautions wound right LE PT-OP-B Current Condition Start: 07/03/19 10:30 Freq: Status: Active Protocol: Document 07/03/19 10:36 SAK (Rec: 07/03/19 12:00 SAK [id number]) Current Condition History of Current Condition Onset Date 1 1/2 years Current Complaints bilateral LE's History of Current Condition Prior to 1 1/2 years ago, legs would swell sometimes but it would go down, never stayed. Gradual worsening, swelling would stay longer periods of time, then got to the point didn't go away, just got worse and worse. States physician kept putting her on diuretics, not helpful. In ER in January for wound posterior right LE; continues with wound care department at [facility]. Has PE, on Warfarin. History of hernia surgery, appendix removal, 2 C sections , several ovarian cysts states noone wants to touch it. Right ovary removed due to a cyst. Compression stockings hard to get on and she states they don't seem to be helpful, not sure of compression level , doesn't have stockings with her this date. Very limited mobility, reports difficult to get to the bathroom at times. Prior Treatments and Tests diuretics compression stockings Treatment Goals Patient/Caregiver Goals Decrease swelling, be able to self-managel. Prior Functional Status Baseline Function- ADL's Independent Baseline Function- Mobility Independent Baseline Function- Gait independent no device Baseline Function- Recreation/Hobbies no limitations Current Functional Impairments (Reported) Functional Limitations- ADL's takes increased time Functional Limitations- Mobility/Gait decreased tolerance due to heaviness of her legs as well as pain Functional Limitations- Work/School unable Functional Limitations- Recreation/ limited to seated Hobbies Personal Factors Other Personal Factors That May Effect PMH: fibromyalgia Therapy/Recovery PT-OP-C Subjective Start: 07/03/19 10:30 Freq: Status: Active Protocol: Document 10/21/19 10:31 SAK (Rec: 10/21/19 10:43 SAK [id number]) OP-PT Subjective Patient Comments Patient Comments Doing intermittant fasting and modified Keto diet. Weight down to 470.3. Saw GP, was anemic, put on iron pills. Helping get a case technician for her insurance. Was put on Vicodin for pain; takes at night PRN. Tylenol during day . Ran out of supplies for her dressing her leg. Has been using compression (Tubigrip) on both. PT-OP-E Functional Tests Start: 07/03/19 10:30 Freq: Status: Active Protocol: Document 07/03/19 10:36 SAK (Rec: 07/06/19 14:41 [facility] [id number]) Functional Tests 2 Minute Walk Test Distance 75 ft PT-OP-J Posture/Palpation/Skin Start: 07/03/19 10:30 Freq: Status: Active Protocol: Document 07/03/19 10:36 SAK (Rec: 07/06/19 14:41 [facility] [id number]) Palpation Assessment Location bilateral LE Palpation Findings Edema,Soft Tissue Tightness Palpation Details Fibrosis bilateral distal LE's between knee and ankles, though difficult to fully assess due to Coban on right LE Skin Assessment Other Assessments Skin Assessment Comments Right LE covered with Coban from knee to foot by wound care, not removed this date Mild hemosideran staining noted on left lower leg. PT-OP-K Range of Motion Start: 07/03/19 10:30 Freq: Status: Active Protocol: Document 07/03/19 10:36 SAK (Rec: 07/06/19 14:41 [facility] [id number]) Hip Goniometric Range of Motion Hip erik Hip ROM WFL Yes Knee Goniometric Range of Motion Knee erik Knee ROM WFL Yes Ankle and Foot Goniometric Range of Motion Ankle and Foot erik Ankle/Foot ROM WFL Yes PT-OP-M Strength Start: 07/03/19 10:30 Freq: Status: Active Protocol: Document 07/03/19 10:36 SAK (Rec: 07/06/19 14:41 [facility] [id number]) Hip Strength Hip Manual Muscle Testing erik Flexion (L2) 3- Fair- Extension (S1) 3- Fair- Abduction 3 Fair External Rotation 3+ Fair+ Internal Rotation 3+ Fair+ Knee Strength Knee Manual Muscle Testing erik Flexion (S2) 4- Good- Extension (L3) 4- Good- Ankle/Foot Strength Ankle and Foot Manual Muscle Testing erik Dorsiflexion (L4) 4 Good Plantarflexion (S1) 4 Good PT-OP-N Lymphedema Start: 07/03/19 10:30 Freq: Status: Active Protocol: Document 07/03/19 10:36 [facility] (Rec: 07/06/19 14:41 [facility] [id number]) Lymphedema Measurements Lower Extremity Circumference Measurements Left Affected MT Heads 28 cm Medial Malleolus 28.7 cm 10 cm From Medial Malleolus 39.8 cm 20 cm From Medial Malleolus 45.6 cm 30 cm From Medial Malleolus 67 cm 40 cm From Medial Malleolus 72.8 cm 50 cm From Medial Malleolus 69.2 cm 60 cm From Medial Malleolus 86 cm 70 cm From Medial Malleolus 90.1 cm 80 cm From Medial Malleolus 90 cm Right Affected MT Heads 28 cm Medial Malleolus 37.3 cm 10 cm From Medial Malleolus 59.2 cm 20 cm From Medial Malleolus 73.2 cm 30 cm From Medial Malleolus 80.4 cm 40 cm From Medial Malleolus 75.5 cm 50 cm From Medial Malleolus 86.4 cm 60 cm From Medial Malleolus 87.6 cm 70 cm From Medial Malleolus 90 cm Comments Lymphedema Comments midfoot 28.1 cm right, 28.7 cm left toes mildly swollen bilaterally. PT-OP-Q Treatments Start: 07/03/19 10:30 Freq: Status: Active Protocol: Document 10/21/19 10:31 [facility] (Rec: 10/21/19 10:43 [facility] [id number]) Self-Care/Home Management Treatment Education Other Education Patient took video of PT doing LE wrapping for instruction of daughter due to her not being able to come for appointments with her mother due to work schedule Lymphedema Treatment Manual Lymphatic Drainage Location Trunk and erik LE Duration 40 Lymphedema Wrapping Body Location erik LE's Materials Erik: toe wraps, Artiflex and Comprilan toes to knee Sequential Lymphedema Exercises Location bilateral LE's Comments 10 reps ea Patient Education Compression Garments patient to return call from [facility]; PT spoke with Hellen at [employer] yesterday PT-OP-R Modalities Start: 07/03/19 10:30 Freq: Status: Active Protocol: Document 10/21/19 10:31 SAK (Rec: 10/21/19 12:08 [facility] [id number]) Compression Pump Treatment Treatment Location Left Leg Pressure Amount (mmHg) (mmHG) 45 Inflation Time (Seconds) 10 Deflation Time (Seconds) 10 Treatment Duration (minutes) 30 Treatment Tolerance Good Treatment Comments patient right LE too large to fit even with mash tub cooker. Pump used during MLD to right LE. PT-OP-T Assessment and Plan Start: 07/03/19 10:30 Freq: Status: Active Protocol: Document 10/21/19 10:31 SAK (Rec: 10/21/19 10:43 [facility] [id number]) Physical Therapy Assessment Other Concerns Barriers to Rehabilitation Low activity level Fibromyalgia, hernia, arthritis, asthma Goals 4 Impairment weakness bilateral LE's Medical Staffing Coordinator Goal (LTG) Patient to demonstrate improvement in LE strength to at least 4/5 throughout 09/30/19: No progress due to Covid19 LTG Duration 12/29/19 3 Impairment difficulty walking community distances Long-Term Goal (LTG) Patient able to consistently ambulate community distances wearing appropriate compression to bilateral LEs 09/30/19: no progress due to patient on hold due to Covid19 LTG Duration 12/29/19 2 Impairment pain bilateral LE's Medical Staffing Coordinator Goal (LTG) Decrease pain to no greater than 3/10 with decrease in lymphedema. 09/30/19: no progress due to patient on hold due to Covid19 LTG Duration 12/29/19 1 Impairment function-limiting lymphedema bilateral LE's Short Term Goal (STG) Educate patient in all aspects of lymphedema self-care including self-bandaging, skin care, self-MLD, exercise. 09/30/19: good goal progress STG Duration 10/14/19 Long-Term Goal (LTG) Decrease edema to stable level to allow patient to be able to be fit with appropriate compression for home management. Patient to be independent with all components of self-care to include skin care, self MLD, exercise, and compression use. LTG Duration 11/30/19 Assessment Summary Assessment Patient weight down to 470.3 today, reports trying to compression on more. Circumferential measurements decreased bilateral LE's today . Physical Therapy Plan Frequency and Duration Frequency of Treatment 3x/Week Duration of Treatment 12 wks Plan of Care Start Date 09/30/19 Plan of Care End Date 12/29/19 Therapeutic Interventions Therapeutic Interventions Lymphedema Management,Self- Care/Home Management, Therapeutic Exercises Next Visit Focus/Plan Next Note Type Treatment Note Next Visit Plan Continue lymphedema management , assess daughter's ability to wrap pt LE's at home with use of video from today. Work to schedule patient for intensive daily PT x 2 wks to further decrease lymphedema and facilitate her being fit with appropriate compression garment.
--- NOTE | 2019-10-28 12:29 | PT.OTN ---
Current Diagnoses Lymphedema, not elsewhere classified (10/28/19) Pain in right lower leg (10/28/19) Pain in left lower leg (10/28/19) Difficulty in walking, not elsewhere classified (10/28/19) Weakness (10/28/19) Physical Therapy Treatment Note PT-OP-A Visit Information Start: 07/03/19 10:30 Freq: Status: Active Protocol: Document 10/28/19 12:24 [facility] (Rec: 10/28/19 12:29 [facility] [id number]) Out-Patient Physical Therapy Visit Information Visit Information Visit Type Treatment Note Visit Start Time 10:30 Visit Stop Time 12:00 Total Visit Minutes 90 Visit Number 8 Number of WOODENWARE ASSEMBLER Visits 0 Evaluation Information Evaluation Date 07/03/19 Precautions Precautions wound right LE PT-OP-B Current Condition Start: 07/03/19 10:30 Freq: Status: Active Protocol: Document 07/03/19 10:36 SAK (Rec: 07/03/19 12:00 [facility] [id number]) Current Condition History of Current Condition Onset Date 1 1/2 years Current Complaints bilateral LE's History of Current Condition Prior to 1 1/2 years ago, legs would swell sometimes but it would go down, never stayed. Gradual worsening, swelling would stay longer periods of time, then got to the point didn't go away, just got worse and worse. States physician kept putting her on diuretics, not helpful. In ER in January for wound posterior right LE; continues with wound care department at [facility]. Has PE, on Warfarin. History of hernia surgery, appendix removal, 2 C sections , several ovarian cysts states noone wants to touch it. Right ovary removed due to a cyst. Compression stockings hard to get on and she states they don't seem to be helpful, not sure of compression level , doesn't have stockings with her this date. Very limited mobility, reports difficult to get to the bathroom at times. Prior Treatments and Tests diuretics compression stockings Treatment Goals Patient/Caregiver Goals Decrease swelling, be able to self-managel. Prior Functional Status Baseline Function- ADL's Independent Baseline Function- Mobility Independent Baseline Function- Gait independent no device Baseline Function- Recreation/Hobbies no limitations Current Functional Impairments (Reported) Functional Limitations- ADL's takes increased time Functional Limitations- Mobility/Gait decreased tolerance due to heaviness of her legs as well as pain Functional Limitations- Work/School unable Functional Limitations- Recreation/ limited to seated Hobbies Personal Factors Other Personal Factors That May Effect PMH: fibromyalgia Therapy/Recovery PT-OP-C Subjective Start: 07/03/19 10:30 Freq: Status: Active Protocol: Document 10/28/19 12:24 SAK (Rec: 10/28/19 12:29 [facility] [id number]) OP-PT Subjective Patient Comments Patient Comments Weight 470.1. Wound care yesterday, another culture taken. States her daughter tried the wrapping of her leg 1x and had difficulty, son tried 1x and did better, stayed on 24hrs. Used video from last session. Didn't wrap yesterday due to wound care, fatigue, family busy. Hasn't been able to connect yet with [employer] regarding compresison garment. PT-OP-E Functional Tests Start: 07/03/19 10:30 Freq: Status: Active Protocol: Document 07/03/19 10:36 [facility] (Rec: 07/06/19 14:41 [facility] [id number]) Functional Tests 2 Minute Walk Test Distance 75 ft PT-OP-J Posture/Palpation/Skin Start: 07/03/19 10:30 Freq: Status: Active Protocol: Document 07/03/19 10:36 SAK (Rec: 07/06/19 14:41 [facility] [id number]) Palpation Assessment Location bilateral LE Palpation Findings Edema,Soft Tissue Tightness Palpation Details Fibrosis bilateral distal LE's between knee and ankles, though difficult to fully assess due to Coban on right LE Skin Assessment Other Assessments Skin Assessment Comments Right LE covered with Coban from knee to foot by wound care, not removed this date Mild hemosideran staining noted on left lower leg. PT-OP-K Range of Motion Start: 07/03/19 10:30 Freq: Status: Active Protocol: Document 07/03/19 10:36 SAK (Rec: 07/06/19 14:41 [facility] [id number]) Hip Goniometric Range of Motion Hip erik Hip ROM WFL Yes Knee Goniometric Range of Motion Knee erik Knee ROM WFL Yes Ankle and Foot Goniometric Range of Motion Ankle and Foot erik Ankle/Foot ROM WFL Yes PT-OP-M Strength Start: 07/03/19 10:30 Freq: Status: Active Protocol: Document 07/03/19 10:36 [facility] (Rec: 07/06/19 14:41 [facility] [id number]) Hip Strength Hip Manual Muscle Testing erik Flexion (L2) 3- Fair- Extension (S1) 3- Fair- Abduction 3 Fair External Rotation 3+ Fair+ Internal Rotation 3+ Fair+ Knee Strength Knee Manual Muscle Testing erik Flexion (S2) 4- Good- Extension (L3) 4- Good- Ankle/Foot Strength Ankle and Foot Manual Muscle Testing erik Dorsiflexion (L4) 4 Good Plantarflexion (S1) 4 Good PT-OP-N Lymphedema Start: 07/03/19 10:30 Freq: Status: Active Protocol: Document 07/03/19 10:36 [facility] (Rec: 07/06/19 14:41 [facility] [id number]) Lymphedema Measurements Lower Extremity Circumference Measurements Left Affected MT Heads 28 cm Medial Malleolus 28.7 cm 10 cm From Medial Malleolus 39.8 cm 20 cm From Medial Malleolus 45.6 cm 30 cm From Medial Malleolus 67 cm 40 cm From Medial Malleolus 72.8 cm 50 cm From Medial Malleolus 69.2 cm 60 cm From Medial Malleolus 86 cm 70 cm From Medial Malleolus 90.1 cm 80 cm From Medial Malleolus 90 cm Right Affected MT Heads 28 cm Medial Malleolus 37.3 cm 10 cm From Medial Malleolus 59.2 cm 20 cm From Medial Malleolus 73.2 cm 30 cm From Medial Malleolus 80.4 cm 40 cm From Medial Malleolus 75.5 cm 50 cm From Medial Malleolus 86.4 cm 60 cm From Medial Malleolus 87.6 cm 70 cm From Medial Malleolus 90 cm Comments Lymphedema Comments midfoot 28.1 cm right, 28.7 cm left toes mildly swollen bilaterally. PT-OP-Q Treatments Start: 07/03/19 10:30 Freq: Status: Active Protocol: Document 10/28/19 12:24 [facility] (Rec: 10/28/19 12:29 [facility] [id number]) Cardio Equipment Recumbent Stepper (Sci-Fit) Other didn't feel up to trying due to fatigue Lymphedema Treatment Manual Lymphatic Drainage Location Trunk and erik LE Duration 40 Lymphedema Wrapping Body Location erik LE's Materials Erik: toe wraps, Artiflex and Comprilan toes to knee Sequential Lymphedema Exercises Location bilateral LE's Comments 10 reps ea Patient Education Compression Garments patient to email [employer] ( already left phone message) PT-OP-R Modalities Start: 07/03/19 10:30 Freq: Status: Active Protocol: Document 10/28/19 12:24 [facility] (Rec: 10/28/19 12:29 [facility] [id number]) Compression Pump Treatment Treatment Location Left Leg Pressure Amount (mmHg) (mmHG) 45 Inflation Time (Seconds) 10 Deflation Time (Seconds) 10 Treatment Duration (minutes) 30 Treatment Tolerance Good Treatment Comments patient right LE too large to fit even with trip follower. Pump used during MLD to right LE. PT-OP-T Assessment and Plan Start: 07/03/19 10:30 Freq: Status: Active Protocol: Document 10/28/19 12:24 [facility] (Rec: 10/28/19 12:29 [facility] [id number]) Physical Therapy Assessment Other Concerns Barriers to Rehabilitation Low activity level Fibromyalgia, hernia, arthritis, asthma Goals 4 Impairment weakness bilateral LE's Wrong Address Clerk Goal (LTG) Patient to demonstrate improvement in LE strength to at least 4/5 throughout 09/30/19: No progress due to Covid19 LTG Duration 12/29/19 3 Impairment difficulty walking community distances Wrong Address Clerk Goal (LTG) Patient able to consistently ambulate community distances wearing appropriate compression to bilateral LEs 09/30/19: no progress due to patient on hold due to Covid19 LTG Duration 12/29/19 2 Impairment pain bilateral LE's [facility] Goal (LTG) Decrease pain to no greater than 3/10 with decrease in lymphedema. 09/30/19: no progress due to patient on hold due to Covid19 LTG Duration 12/29/19 1 Impairment function-limiting lymphedema bilateral LE's Short Term Goal (STG) Educate patient in all aspects of lymphedema self-care including self-bandaging, skin care, self-MLD, exercise. 09/30/19: good goal progress STG Duration 10/14/19 [facility] Goal (LTG) Decrease edema to stable level to allow patient to be able to be fit with appropriate compression for home management. Patient to be independent with all components of self-care to include skin care, self MLD, exercise, and compression use. LTG Duration 11/30/19 Assessment Summary Assessment No significant change in circumferential measurements today ( see paper chart), patient not wrapped consistently. Physical Therapy Plan Frequency and Duration Frequency of Treatment 3x/Week Duration of Treatment 12 wks Plan of Care Start Date 09/30/19 Plan of Care End Date 12/29/19 Therapeutic Interventions Therapeutic Interventions Lymphedema Management,Self- Care/Home Management, Therapeutic Exercises Next Visit Focus/Plan Next Note Type Treatment Note Next Visit Plan Continue lymphedema management , assess daughter's ability to wrap pt LE's at home with use of video from today. Work to schedule patient for intensive daily PT x 2 wks to further decrease lymphedema and facilitate her being fit with appropriate compression garment.
--- NOTE | 2019-11-03 16:20 | PT.OTN ---
Current Diagnoses Lymphedema, not elsewhere classified (11/03/19) Pain in right lower leg (11/03/19) Pain in left lower leg (11/03/19) Difficulty in walking, not elsewhere classified (11/03/19) Weakness (11/03/19) Physical Therapy Treatment Note PT-OP-A Visit Information Start: 07/03/19 10:30 Freq: Status: Active Protocol: Document 11/03/19 13:48 SAK (Rec: 11/03/19 14:01 SAK [id number]) Out-Patient Physical Therapy Visit Information Visit Information Visit Type Treatment Note Visit Start Time 13:45 Visit Stop Time 15:15 Total Visit Minutes 90 Visit Number 9 Number of CONSTRUCTION SERVICES TECHNICIAN Visits 0 Evaluation Information Evaluation Date 07/03/19 Precautions Precautions wound right LE PT-OP-B Current Condition Start: 07/03/19 10:30 Freq: Status: Active Protocol: Document 07/03/19 10:36 SAK (Rec: 07/03/19 12:00 SAK [id number]) Current Condition History of Current Condition Onset Date 1 1/2 years Current Complaints bilateral LE's History of Current Condition Prior to 1 1/2 years ago, legs would swell sometimes but it would go down, never stayed. Gradual worsening, swelling would stay longer periods of time, then got to the point didn't go away, just got worse and worse. States physician kept putting her on diuretics, not helpful. In ER in January for wound posterior right LE; continues with wound care department at [facility]. Has PE, on Warfarin. History of hernia surgery, appendix removal, 2 C sections , several ovarian cysts states noone wants to touch it. Right ovary removed due to a cyst. Compression stockings hard to get on and she states they don't seem to be helpful, not sure of compression level , doesn't have stockings with her this date. Very limited mobility, reports difficult to get to the bathroom at times. Prior Treatments and Tests diuretics compression stockings Treatment Goals Patient/Caregiver Goals Decrease swelling, be able to self-managel. Prior Functional Status Baseline Function- ADL's Independent Baseline Function- Mobility Independent Baseline Function- Gait independent no device Baseline Function- Recreation/Hobbies no limitations Current Functional Impairments (Reported) Functional Limitations- ADL's takes increased time Functional Limitations- Mobility/Gait decreased tolerance due to heaviness of her legs as well as pain Functional Limitations- Work/School unable Functional Limitations- Recreation/ limited to seated Hobbies Personal Factors Other Personal Factors That May Effect PMH: fibromyalgia Therapy/Recovery PT-OP-C Subjective Start: 07/03/19 10:30 Freq: Status: Active Protocol: Document 11/03/19 13:48 SAK (Rec: 11/03/19 14:01 SAK [id number]) OP-PT Subjective Patient Comments Patient Comments Put on an oral antibiotic, wound continues to drain copiously. Has been unable to get her leg wrapped. 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 Has made contact with Hellen at [facility] regarding garments. Requests no wrapping of toes, too uncomfortable. PT-OP-E Functional Tests Start: 07/03/19 10:30 Freq: Status: Active Protocol: Document 07/03/19 10:36 SAK (Rec: 07/06/19 14:41 [facility] [id number]) Functional Tests 2 Minute Walk Test Distance 75 ft PT-OP-J Posture/Palpation/Skin Start: 07/03/19 10:30 Freq: Status: Active Protocol: Document 07/03/19 10:36 SAK (Rec: 07/06/19 14:41 [facility] [id number]) Palpation Assessment Location bilateral LE Palpation Findings Edema,Soft Tissue Tightness Palpation Details Fibrosis bilateral distal LE's between knee and ankles, though difficult to fully assess due to Coban on right LE Skin Assessment Other Assessments Skin Assessment Comments Right LE covered with Coban from knee to foot by wound care, not removed this date Mild hemosideran staining noted on left lower leg. PT-OP-K Range of Motion Start: 07/03/19 10:30 Freq: Status: Active Protocol: Document 07/03/19 10:36 SAK (Rec: 07/06/19 14:41 [facility] [id number]) Hip Goniometric Range of Motion Hip erik Hip ROM WFL Yes Knee Goniometric Range of Motion Knee erik Knee ROM WFL Yes Ankle and Foot Goniometric Range of Motion Ankle and Foot erik Ankle/Foot ROM WFL Yes PT-OP-M Strength Start: 07/03/19 10:30 Freq: Status: Active Protocol: Document 07/03/19 10:36 SAK (Rec: 07/06/19 14:41 [facility] [id number]) Hip Strength Hip Manual Muscle Testing erik Flexion (L2) 3- Fair- Extension (S1) 3- Fair- Abduction 3 Fair External Rotation 3+ Fair+ Internal Rotation 3+ Fair+ Knee Strength Knee Manual Muscle Testing erik Flexion (S2) 4- Good- Extension (L3) 4- Good- Ankle/Foot Strength Ankle and Foot Manual Muscle Testing erik Dorsiflexion (L4) 4 Good Plantarflexion (S1) 4 Good PT-OP-N Lymphedema Start: 07/03/19 10:30 Freq: Status: Active Protocol: Document 07/03/19 10:36 [facility] (Rec: 07/06/19 14:41 [facility] [id number]) Lymphedema Measurements Lower Extremity Circumference Measurements Left Affected MT Heads 28 cm Medial Malleolus 28.7 cm 10 cm From Medial Malleolus 39.8 cm 20 cm From Medial Malleolus 45.6 cm 30 cm From Medial Malleolus 67 cm 40 cm From Medial Malleolus 72.8 cm 50 cm From Medial Malleolus 69.2 cm 60 cm From Medial Malleolus 86 cm 70 cm From Medial Malleolus 90.1 cm 80 cm From Medial Malleolus 90 cm Right Affected MT Heads 28 cm Medial Malleolus 37.3 cm 10 cm From Medial Malleolus 59.2 cm 20 cm From Medial Malleolus 73.2 cm 30 cm From Medial Malleolus 80.4 cm 40 cm From Medial Malleolus 75.5 cm 50 cm From Medial Malleolus 86.4 cm 60 cm From Medial Malleolus 87.6 cm 70 cm From Medial Malleolus 90 cm Comments Lymphedema Comments midfoot 28.1 cm right, 28.7 cm left toes mildly swollen bilaterally. PT-OP-Q Treatments Start: 07/03/19 10:30 Freq: Status: Active Protocol: Document 11/03/19 13:48 [facility] (Rec: 11/03/19 14:01 [facility] [id number]) Cardio Equipment Recumbent Stepper (Sci-Fit) Other unable due to time Lymphedema Treatment Manual Lymphatic Drainage Location Trunk and erik LE Duration 40 Lymphedema Wrapping Body Location erik LE's Materials Erik: toe wraps, Artiflex and Comprilan MTP to knees Sequential Lymphedema Exercises Location bilateral LE's Comments 10 reps ea Patient Education Compression Garments patient to follow-up, make appointment with [facility] Other Other Kinesiotape fan technique for edema reduction anterior right lower leg. PT-OP-R Modalities Start: 07/03/19 10:30 Freq: Status: Active Protocol: Document 11/03/19 13:48 SAK (Rec: 11/03/19 14:01 SAK [id number]) Compression Pump Treatment Treatment Location Left Leg Pressure Amount (mmHg) (mmHG) 45 Inflation Time (Seconds) 10 Deflation Time (Seconds) 10 Treatment Duration (minutes) 30 Treatment Tolerance Good Treatment Comments patient right LE too large to fit even with gyroscopic instrument tester. Pump used during MLD to right LE. PT-OP-T Assessment and Plan Start: 07/03/19 10:30 Freq: Status: Active Protocol: Document 11/03/19 13:48 [facility] (Rec: 11/03/19 14:01 SAK [id number]) Physical Therapy Assessment Other Concerns Barriers to Rehabilitation Low activity level Fibromyalgia, hernia, arthritis, asthma Goals 4 Impairment weakness bilateral LE's Penitentiary Goal (LTG) Patient to demonstrate improvement in LE strength to at least 4/5 throughout 09/30/19: No progress due to Covid19 LTG Duration 12/29/19 3 Impairment difficulty walking community distances It Consulting Manager Goal (LTG) Patient able to consistently ambulate community distances wearing appropriate compression to bilateral LEs 09/30/19: no progress due to patient on hold due to Covid19 LTG Duration 12/29/19 2 Impairment pain bilateral LE's It Consulting Manager Goal (LTG) Decrease pain to no greater than 3/10 with decrease in lymphedema. 09/30/19: no progress due to patient on hold due to Covid19 LTG Duration 12/29/19 1 Impairment function-limiting lymphedema bilateral LE's Short Term Goal (STG) Educate patient in all aspects of lymphedema self-care including self-bandaging, skin care, self-MLD, exercise. 09/30/19: good goal progress STG Duration 10/14/19 It Consulting Manager Goal (LTG) Decrease edema to stable level to allow patient to be able to be fit with appropriate compression for home management. Patient to be independent with all components of self-care to include skin care, self MLD, exercise, and compression use. LTG Duration 11/30/19 Assessment Summary Assessment Patient demonstrated improved walking today, compliant with HEP. Continues to struggle with getting wrapped at home, encouraged if nothing else at least get right LE wrapped, use tubigrip on left. Trial kinesiotape today to right lower leg Physical Therapy Plan Frequency and Duration Frequency of Treatment 3x/Week Duration of Treatment 12 wks Plan of Care Start Date 09/30/19 Plan of Care End Date 12/29/19 Therapeutic Interventions Therapeutic Interventions Lymphedema Management,Self- Care/Home Management, Therapeutic Exercises
--- NOTE | 2019-11-06 09:08 | PT-OP ANOTE ---
patient cancelled PT apointment
--- NOTE | 2019-11-10 16:38 | PT.OTN ---
Current Diagnoses Lymphedema, not elsewhere classified (11/10/19) Pain in right lower leg (11/10/19) Pain in left lower leg (11/10/19) Difficulty in walking, not elsewhere classified (11/10/19) Weakness (11/10/19) Physical Therapy Treatment Note PT-OP-A Visit Information Start: 07/03/19 10:30 Freq: Status: Active Protocol: Document 11/10/19 16:32 [facility] (Rec: 11/10/19 16:38 [facility] [id number]) Out-Patient Physical Therapy Visit Information Visit Information Visit Type Treatment Note Visit Start Time 13:45 Visit Stop Time 15:15 Total Visit Minutes 90 Visit Number 10 Number of ENGLISH LANGUAGE LEARNER TEACHER Visits 0 Evaluation Information Evaluation Date 07/03/19 Precautions Precautions wound right LE PT-OP-B Current Condition Start: 07/03/19 10:30 Freq: Status: Active Protocol: Document 07/03/19 10:36 SAK (Rec: 07/03/19 12:00 [facility] [id number]) Current Condition History of Current Condition Onset Date 1 1/2 years Current Complaints bilateral LE's History of Current Condition Prior to 1 1/2 years ago, legs would swell sometimes but it would go down, never stayed. Gradual worsening, swelling would stay longer periods of time, then got to the point didn't go away, just got worse and worse. States physician kept putting her on diuretics, not helpful. In ER in January for wound posterior right LE; continues with wound care department at [facility]. Has PE, on Warfarin. History of hernia surgery, appendix removal, 2 C sections , several ovarian cysts states noone wants to touch it. Right ovary removed due to a cyst. Compression stockings hard to get on and she states they don't seem to be helpful, not sure of compression level , doesn't have stockings with her this date. Very limited mobility, reports difficult to get to the bathroom at times. Prior Treatments and Tests diuretics compression stockings Treatment Goals Patient/Caregiver Goals Decrease swelling, be able to self-managel. Prior Functional Status Baseline Function- ADL's Independent Baseline Function- Mobility Independent Baseline Function- Gait independent no device Baseline Function- Recreation/Hobbies no limitations Current Functional Impairments (Reported) Functional Limitations- ADL's takes increased time Functional Limitations- Mobility/Gait decreased tolerance due to heaviness of her legs as well as pain Functional Limitations- Work/School unable Functional Limitations- Recreation/ limited to seated Hobbies Personal Factors Other Personal Factors That May Effect PMH: fibromyalgia Therapy/Recovery PT-OP-C Subjective Start: 07/03/19 10:30 Freq: Status: Active Protocol: Document 11/10/19 16:32 SAK (Rec: 11/10/19 16:38 SAK [id number]) OP-PT Subjective Patient Comments Patient Comments Patient reports she has an appointment with her GP this week to discuss the leg wound, any further options. Has appointment with Hellen Dang for consultation regarding compression garment 11/15/19. States her son tried wrapping her legs 1x since last seen but had difficulty. PT-OP-E Functional Tests Start: 07/03/19 10:30 Freq: Status: Active Protocol: Document 07/03/19 10:36 [facility] (Rec: 07/06/19 14:41 [facility] [id number]) Functional Tests 2 Minute Walk Test Distance 75 ft PT-OP-J Posture/Palpation/Skin Start: 07/03/19 10:30 Freq: Status: Active Protocol: Document 07/03/19 10:36 [facility] (Rec: 07/06/19 14:41 [facility] [id number]) Palpation Assessment Location bilateral LE Palpation Findings Edema,Soft Tissue Tightness Palpation Details Fibrosis bilateral distal LE's between knee and ankles, though difficult to fully assess due to Coban on right LE Skin Assessment Other Assessments Skin Assessment Comments Right LE covered with Coban from knee to foot by wound care, not removed this date Mild hemosideran staining noted on left lower leg. PT-OP-K Range of Motion Start: 07/03/19 10:30 Freq: Status: Active Protocol: Document 07/03/19 10:36 [facility] (Rec: 07/06/19 14:41 [facility] [id number]) Hip Goniometric Range of Motion Hip erik Hip ROM WFL Yes Knee Goniometric Range of Motion Knee erik Knee ROM WFL Yes Ankle and Foot Goniometric Range of Motion Ankle and Foot erik Ankle/Foot ROM WFL Yes PT-OP-M Strength Start: 07/03/19 10:30 Freq: Status: Active Protocol: Document 07/03/19 10:36 [facility] (Rec: 07/06/19 14:41 [facility] [id number]) Hip Strength Hip Manual Muscle Testing erik Flexion (L2) 3- Fair- Extension (S1) 3- Fair- Abduction 3 Fair External Rotation 3+ Fair+ Internal Rotation 3+ Fair+ Knee Strength Knee Manual Muscle Testing erik Flexion (S2) 4- Good- Extension (L3) 4- Good- Ankle/Foot Strength Ankle and Foot Manual Muscle Testing erik Dorsiflexion (L4) 4 Good Plantarflexion (S1) 4 Good PT-OP-N Lymphedema Start: 07/03/19 10:30 Freq: Status: Active Protocol: Document 07/03/19 10:36 [facility] (Rec: 07/06/19 14:41 [facility] [id number]) Lymphedema Measurements Lower Extremity Circumference Measurements Left Affected MT Heads 28 cm Medial Malleolus 28.7 cm 10 cm From Medial Malleolus 39.8 cm 20 cm From Medial Malleolus 45.6 cm 30 cm From Medial Malleolus 67 cm 40 cm From Medial Malleolus 72.8 cm 50 cm From Medial Malleolus 69.2 cm 60 cm From Medial Malleolus 86 cm 70 cm From Medial Malleolus 90.1 cm 80 cm From Medial Malleolus 90 cm Right Affected MT Heads 28 cm Medial Malleolus 37.3 cm 10 cm From Medial Malleolus 59.2 cm 20 cm From Medial Malleolus 73.2 cm 30 cm From Medial Malleolus 80.4 cm 40 cm From Medial Malleolus 75.5 cm 50 cm From Medial Malleolus 86.4 cm 60 cm From Medial Malleolus 87.6 cm 70 cm From Medial Malleolus 90 cm Comments Lymphedema Comments midfoot 28.1 cm right, 28.7 cm left toes mildly swollen bilaterally. PT-OP-Q Treatments Start: 07/03/19 10:30 Freq: Status: Active Protocol: Document 11/10/19 16:32 [facility] (Rec: 11/10/19 16:38 [facility] [id number]) Cardio Equipment Recumbent Stepper (Sci-Fit) Duration (Minutes) 3 Resistance 1 Seat Position 13 Other stopped due to left knee pain Lymphedema Treatment Manual Lymphatic Drainage Location Trunk and right LE Duration 40 Comments Sequential pneumatic pump to left LE during MLD to right LE . Lymphedema Wrapping Body Location erik LE's Materials Erik: Artiflex and Comprilan MTP to knees (refuses toe wraps or wraps above knees) Sequential Lymphedema Exercises Location bilateral LE's Comments 10 reps ea PT-OP-R Modalities Start: 07/03/19 10:30 Freq: Status: Active Protocol: Document 11/10/19 16:32 SAK (Rec: 11/10/19 16:38 SAK [id number]) Compression Pump Treatment Treatment Location Left Leg Pressure Amount (mmHg) (mmHG) 45 Inflation Time (Seconds) 10 Deflation Time (Seconds) 10 Treatment Duration (minutes) 30 Treatment Tolerance Good Treatment Comments patient right LE too large to fit 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 Pump used during MLD to right LE. PT-OP-T Assessment and Plan Start: 07/03/19 10:30 Freq: Status: Active Protocol: Document 11/10/19 16:32 SAK (Rec: 11/10/19 16:38 [facility] [id number]) Physical Therapy Assessment Other Concerns Barriers to Rehabilitation Low activity level Fibromyalgia, hernia, arthritis, asthma, lack of lymphedema wrapping at home. Goals 4 Impairment weakness bilateral LE's Bondactor Machine Operator Goal (LTG) Patient to demonstrate improvement in LE strength to at least 4/5 throughout 09/30/19: No progress due to Covid19 LTG Duration 12/29/19 3 Impairment difficulty walking community distances Bondactor Machine Operator Goal (LTG) Patient able to consistently ambulate community distances wearing appropriate compression to bilateral LEs 09/30/19: no progress due to patient on hold due to Covid19 LTG Duration 12/29/19 2 Impairment pain bilateral LE's Bondactor Machine Operator Goal (LTG) Decrease pain to no greater than 3/10 with decrease in lymphedema. 09/30/19: no progress due to patient on hold due to Covid19 LTG Duration 12/29/19 1 Impairment function-limiting lymphedema bilateral LE's Short Term Goal (STG) Educate patient in all aspects of lymphedema self-care including self-bandaging, skin care, self-MLD, exercise. 09/30/19: good goal progress STG Duration 10/14/19 Bondactor Machine Operator Goal (LTG) Decrease edema to stable level to allow patient to be able to be fit with appropriate compression for home management. Patient to be independent with all components of self-care to include skin care, self MLD, exercise, and compression use. LTG Duration 11/30/19 Assessment Summary Assessment Patient having more difficulty walking today, pain left knee which limited ability to tolerate recumbant elliptical. Only trial of wrapping 1x at home since she was last seen. Physical Therapy Plan Frequency and Duration Frequency of Treatment 3x/Week Duration of Treatment 12 wks Plan of Care Start Date 09/30/19 Plan of Care End Date 12/29/19 Therapeutic Interventions Therapeutic Interventions Lymphedema Management,Self- Care/Home Management, Therapeutic Exercises
--- NOTE | 2019-11-24 16:45 | PT.OTN ---
Current Diagnoses Lymphedema, not elsewhere classified (11/24/19) Pain in right lower leg (11/24/19) Pain in left lower leg (11/24/19) Difficulty in walking, not elsewhere classified (11/24/19) Weakness (11/24/19) Physical Therapy Treatment Note PT-OP-A Visit Information Start: 07/03/19 10:30 Freq: Status: Active Protocol: Document 11/24/19 13:01 SAK (Rec: 11/24/19 13:11 SAK [id number]) Out-Patient Physical Therapy Visit Information Visit Information Visit Type Treatment Note Visit Start Time 13:00 Visit Stop Time 14:28 Total Visit Minutes 88 Visit Number 11 Number of RESIDENTIAL PROPERTY TAX APPRAISER Visits 0 Evaluation Information Evaluation Date 07/03/19 Precautions Precautions wound right LE PT-OP-B Current Condition Start: 07/03/19 10:30 Freq: Status: Active Protocol: Document 07/03/19 10:36 SAK (Rec: 07/03/19 12:00 SAK [id number]) Current Condition History of Current Condition Onset Date 1 1/2 years Current Complaints bilateral LE's History of Current Condition Prior to 1 1/2 years ago, legs would swell sometimes but it would go down, never stayed. Gradual worsening, swelling would stay longer periods of time, then got to the point didn't go away, just got worse and worse. States physician kept putting her on diuretics, not helpful. In ER in January for wound posterior right LE; continues with wound care department at [facility]. Has PE, on Warfarin. History of hernia surgery, appendix removal, 2 C sections , several ovarian cysts states noone wants to touch it. Right ovary removed due to a cyst. Compression stockings hard to get on and she states they don't seem to be helpful, not sure of compression level , doesn't have stockings with her this date. Very limited mobility, reports difficult to get to the bathroom at times. Prior Treatments and Tests diuretics compression stockings Treatment Goals Patient/Caregiver Goals Decrease swelling, be able to self-managel. Prior Functional Status Baseline Function- ADL's Independent Baseline Function- Mobility Independent Baseline Function- Gait independent no device Baseline Function- Recreation/Hobbies no limitations Current Functional Impairments (Reported) Functional Limitations- ADL's takes increased time Functional Limitations- Mobility/Gait decreased tolerance due to heaviness of her legs as well as pain Functional Limitations- Work/School unable Functional Limitations- Recreation/ limited to seated Hobbies Personal Factors Other Personal Factors That May Effect PMH: fibromyalgia Therapy/Recovery PT-OP-C Subjective Start: 07/03/19 10:30 Freq: Status: Active Protocol: Document 11/24/19 13:01 SAK (Rec: 11/24/19 13:11 SAK [id number]) OP-PT Subjective Patient Comments Patient Comments Went into hospital 11/17/19 due to cellulitis right LE. In hospital 3 days. On IV antibiotics. Just was at wound care just prior to PT today. Obtained compression wraps knee high, foot componenet right too big and has been reordered. Didn't have any compression while in hospital. Weight decreased to 466. PT-OP-E Functional Tests Start: 07/03/19 10:30 Freq: Status: Active Protocol: Document 07/03/19 10:36 SAK (Rec: 07/06/19 14:41 [facility] [id number]) Functional Tests 2 Minute Walk Test Distance 75 ft PT-OP-J Posture/Palpation/Skin Start: 07/03/19 10:30 Freq: Status: Active Protocol: Document 07/03/19 10:36 [facility] (Rec: 07/06/19 14:41 [facility] [id number]) Palpation Assessment Location bilateral LE Palpation Findings Edema,Soft Tissue Tightness Palpation Details Fibrosis bilateral distal LE's between knee and ankles, though difficult to fully assess due to Coban on right LE Skin Assessment Other Assessments Skin Assessment Comments Right LE covered with Coban from knee to foot by wound care, not removed this date Mild hemosideran staining noted on left lower leg. PT-OP-K Range of Motion Start: 07/03/19 10:30 Freq: Status: Active Protocol: Document 07/03/19 10:36 SAK (Rec: 07/06/19 14:41 [facility] [id number]) Hip Goniometric Range of Motion Hip ernestine Hip ROM WFL Yes Knee Goniometric Range of Motion Knee ernestine Knee ROM WFL Yes Ankle and Foot Goniometric Range of Motion Ankle and Foot ernestine Ankle/Foot ROM WFL Yes PT-OP-M Strength Start: 07/03/19 10:30 Freq: Status: Active Protocol: Document 07/03/19 10:36 SAK (Rec: 07/06/19 14:41 SAK [id number]) Hip Strength Hip Manual Muscle Testing ernestine Flexion (L2) 3- Fair- Extension (S1) 3- Fair- Abduction 3 Fair External Rotation 3+ Fair+ Internal Rotation 3+ Fair+ Knee Strength Knee Manual Muscle Testing ernestine Flexion (S2) 4- Good- Extension (L3) 4- Good- Ankle/Foot Strength Ankle and Foot Manual Muscle Testing ernestine Dorsiflexion (L4) 4 Good Plantarflexion (S1) 4 Good PT-OP-N Lymphedema Start: 07/03/19 10:30 Freq: Status: Active Protocol: Document 11/24/19 13:01 [facility] (Rec: 11/24/19 16:45 [facility] [id number]) Lymphedema Measurements Lower Extremity Circumference Measurements Left Affected MT Heads 26 cm Medial Malleolus 36.2 cm 10 cm From Medial Malleolus 49.8 cm 20 cm From Medial Malleolus 66.2 cm 30 cm From Medial Malleolus 72.2 cm 40 cm From Medial Malleolus 76.3 cm Right Affected MT Heads 28 cm Medial Malleolus 39.2 cm 10 cm From Medial Malleolus 54.5 cm 20 cm From Medial Malleolus 69.9 cm 30 cm From Medial Malleolus 78.7 cm 40 cm From Medial Malleolus 73.1 cm PT-OP-Q Treatments Start: 07/03/19 10:30 Freq: Status: Active Protocol: Document 11/24/19 13:01 [facility] (Rec: 11/24/19 13:11 [facility] [id number]) Lymphedema Treatment Manual Lymphatic Drainage Location Trunk and bilateral LE's Duration 65 Lymphedema Wrapping Materials applied Size F tubigrip to right foot, compression alternative wrap to right lower leg, left lower leg and left foot Sequential Lymphedema Exercises Location bilateral LE's Comments 10 reps ea Other Other circumferential measurements bilateral LE's application of lotion bilateral LE's: Phytoplex for skin care PT-OP-R Modalities Start: 07/03/19 10:30 Freq: Status: Active Protocol: Document 11/10/19 16:32 [facility] (Rec: 11/10/19 16:38 [facility] [id number]) Compression Pump Treatment Treatment Location Left Leg Pressure Amount (mmHg) (mmHG) 45 Inflation Time (Seconds) 10 Deflation Time (Seconds) 10 Treatment Duration (minutes) 30 Treatment Tolerance Good Treatment Comments patient right LE too large to fit even with watch parts inspector. Pump used during MLD to right LE. PT-OP-T Assessment and Plan Start: 07/03/19 10:30 Freq: Status: Active Protocol: Document 11/24/19 13:01 EDGAR (Rec: 11/24/19 13:11 [facility] [id number]) Physical Therapy Assessment Other Concerns Barriers to Rehabilitation Low activity level Fibromyalgia, hernia, arthritis, asthma, lack of lymphedema wrapping at home. Goals 4 Impairment weakness bilateral LE's Fpc Goal (LTG) Patient to demonstrate improvement in LE strength to at least 4/5 throughout 09/30/19: No progress due to Covid19 LTG Duration 12/29/19 3 Impairment difficulty walking community distances Fpc Goal (LTG) Patient able to consistently ambulate community distances wearing appropriate compression to bilateral LEs 09/30/19: no progress due to patient on hold due to Covid19 LTG Duration 12/29/19 2 Impairment pain bilateral LE's Fpc Goal (LTG) Decrease pain to no greater than 3/10 with decrease in lymphedema. 09/30/19: no progress due to patient on hold due to Covid19 LTG Duration 12/29/19 1 Impairment function-limiting lymphedema bilateral LE's Short Term Goal (STG) Educate patient in all aspects of lymphedema self-care including self-bandaging, skin care, self-MLD, exercise. 09/30/19: good goal progress STG Duration 10/14/19 Fpc Goal (LTG) Decrease edema to stable level to allow patient to be able to be fit with appropriate compression for home management. Patient to be independent with all components of self-care to include skin care, self MLD, exercise, and compression use. LTG Duration 11/30/19 Assessment Summary Assessment Decreased circumference bilateral LE's, good fit of bilateral lower leg and left foot wrap. New wrap was ordered for right foot. Physical Therapy Plan Frequency and Duration Frequency of Treatment 3x/Week Duration of Treatment 12 wks Plan of Care Start Date 09/30/19 Plan of Care End Date 12/29/19 Therapeutic Interventions Therapeutic Interventions Lymphedema Management,Self- Care/Home Management, Therapeutic Exercises
--- NOTE | 2019-11-25 16:56 | PT.OTN ---
Current Diagnoses Lymphedema, not elsewhere classified (11/25/19) Pain in right lower leg (11/25/19) Pain in left lower leg (11/25/19) Difficulty in walking, not elsewhere classified (11/25/19) Weakness (11/25/19) Physical Therapy Treatment Note PT-OP-A Visit Information Start: 07/03/19 10:30 Freq: Status: Active Protocol: Document 11/25/19 16:35 SAK (Rec: 11/25/19 16:45 [facility] [id number]) Out-Patient Physical Therapy Visit Information Visit Information Visit Type Treatment Note Visit Start Time 13:00 Visit Stop Time 14:30 Total Visit Minutes 90 Visit Number 12 Number of AGRICULTURAL PURCHASING AGENT Visits 0 Evaluation Information Evaluation Date 11/25/19 Precautions Precautions wound right LE PT-OP-B Current Condition Start: 07/03/19 10:30 Freq: Status: Active Protocol: Document 07/03/19 10:36 SAK (Rec: 07/03/19 12:00 [facility] [id number]) Current Condition History of Current Condition Onset Date 1 1/2 years Current Complaints bilateral LE's History of Current Condition Prior to 1 1/2 years ago, legs would swell sometimes but it would go down, never stayed. Gradual worsening, swelling would stay longer periods of time, then got to the point didn't go away, just got worse and worse. States physician kept putting her on diuretics, not helpful. In ER in January for wound posterior right LE; continues with wound care department at [facility]. Has PE, on Warfarin. History of hernia surgery, appendix removal, 2 C sections , several ovarian cysts states noone wants to touch it. Right ovary removed due to a cyst. Compression stockings hard to get on and she states they don't seem to be helpful, not sure of compression level , doesn't have stockings with her this date. Very limited mobility, reports difficult to get to the bathroom at times. Prior Treatments and Tests diuretics compression stockings Treatment Goals Patient/Caregiver Goals Decrease swelling, be able to self-managel. Prior Functional Status Baseline Function- ADL's Independent Baseline Function- Mobility Independent Baseline Function- Gait independent no device Baseline Function- Recreation/Hobbies no limitations Current Functional Impairments (Reported) Functional Limitations- ADL's takes increased time Functional Limitations- Mobility/Gait decreased tolerance due to heaviness of her legs as well as pain Functional Limitations- Work/School unable Functional Limitations- Recreation/ limited to seated Hobbies Personal Factors Other Personal Factors That May Effect PMH: fibromyalgia Therapy/Recovery PT-OP-C Subjective Start: 07/03/19 10:30 Freq: Status: Active Protocol: Document 11/25/19 16:35 SAK (Rec: 11/25/19 16:45 [facility] [id number]) OP-PT Subjective Patient Comments Patient Comments No new c/o. reports improved ability to be compliant with compression alternative wraps (Solaris ready-wrap) vs short stretch bandages. Pleased she sees some progress with her lymphedema. PT-OP-E Functional Tests Start: 07/03/19 10:30 Freq: Status: Active Protocol: Document 07/03/19 10:36 SAK (Rec: 07/06/19 14:41 [facility] [id number]) Functional Tests 2 Minute Walk Test Distance 75 ft PT-OP-J Posture/Palpation/Skin Start: 07/03/19 10:30 Freq: Status: Active Protocol: Document 07/03/19 10:36 [facility] (Rec: 07/06/19 14:41 [facility] [id number]) Palpation Assessment Location bilateral LE Palpation Findings Edema,Soft Tissue Tightness Palpation Details Fibrosis bilateral distal LE's between knee and ankles, though difficult to fully assess due to Coban on right LE Skin Assessment Other Assessments Skin Assessment Comments Right LE covered with Coban from knee to foot by wound care, not removed this date Mild hemosideran staining noted on left lower leg. PT-OP-K Range of Motion Start: 07/03/19 10:30 Freq: Status: Active Protocol: Document 07/03/19 10:36 SAK (Rec: 07/06/19 14:41 [facility] [id number]) Hip Goniometric Range of Motion Hip ernestine Hip ROM WFL Yes Knee Goniometric Range of Motion Knee ernestine Knee ROM WFL Yes Ankle and Foot Goniometric Range of Motion Ankle and Foot ernestine Ankle/Foot ROM WFL Yes PT-OP-M Strength Start: 07/03/19 10:30 Freq: Status: Active Protocol: Document 07/03/19 10:36 SAK (Rec: 07/06/19 14:41 [facility] [id number]) Hip Strength Hip Manual Muscle Testing ernestine Flexion (L2) 3- Fair- Extension (S1) 3- Fair- Abduction 3 Fair External Rotation 3+ Fair+ Internal Rotation 3+ Fair+ Knee Strength Knee Manual Muscle Testing ernestine Flexion (S2) 4- Good- Extension (L3) 4- Good- Ankle/Foot Strength Ankle and Foot Manual Muscle Testing ernestine Dorsiflexion (L4) 4 Good Plantarflexion (S1) 4 Good PT-OP-N Lymphedema Start: 07/03/19 10:30 Freq: Status: Active Protocol: Document 11/25/19 16:35 [facility] (Rec: 11/25/19 16:45 [facility] [id number]) Lymphedema Measurements Lower Extremity Circumference Measurements Left Affected MT Heads 26.5 cm Medial Malleolus 36.3 cm 10 cm From Medial Malleolus 44.5 cm 20 cm From Medial Malleolus 68.3 cm 30 cm From Medial Malleolus 73.5 cm 40 cm From Medial Malleolus 74.8 cm Right Affected MT Heads 27.7 cm Medial Malleolus 40.2 cm 10 cm From Medial Malleolus 56.2 cm 20 cm From Medial Malleolus 72.7 cm 30 cm From Medial Malleolus 79 cm 40 cm From Medial Malleolus 72.9 cm PT-OP-Q Treatments Start: 07/03/19 10:30 Freq: Status: Active Protocol: Document 11/25/19 16:35 [facility] (Rec: 11/25/19 16:45 [facility] [id number]) Cardio Equipment Recumbent Stepper (Sci-Fit) Duration (Minutes) 5 Resistance 1 Seat Position 13 Lymphedema Treatment Manual Lymphatic Drainage Location Trunk and bilateral LE's Duration 65 Lymphedema Wrapping Materials applied Size F tubigrip to right foot, compression alternative wrap to right lower leg, left lower leg and left foot Sequential Lymphedema Exercises Location bilateral LE's Comments 10 reps ea Other Other circumferential measurements bilateral LE's application of lotion bilateral LE's: Phytoplex for skin care PT-OP-R Modalities Start: 07/03/19 10:30 Freq: Status: Active Protocol: Document 11/10/19 16:32 SAK (Rec: 11/10/19 16:38 [facility] [id number]) Compression Pump Treatment Treatment Location Left Leg Pressure Amount (mmHg) (mmHG) 45 Inflation Time (Seconds) 10 Deflation Time (Seconds) 10 Treatment Duration (minutes) 30 Treatment Tolerance Good Treatment Comments patient right LE too large to fit even with associate creative director. Pump used during MLD to right LE. PT-OP-T Assessment and Plan Start: 07/03/19 10:30 Freq: Status: Active Protocol: Document 11/25/19 16:35 [facility] (Rec: 11/25/19 16:45 [facility] [id number]) Physical Therapy Assessment Other Concerns Barriers to Rehabilitation Low activity level Fibromyalgia, hernia, arthritis, asthma, lack of lymphedema wrapping at home. Goals 4 Impairment weakness bilateral LE's Pull Socket Assembler Goal (LTG) Patient to demonstrate improvement in LE strength to at least 4/5 throughout 09/30/19: No progress due to Covid19 11/24/28: Goal progress, improvement in exercise tolerance LTG Duration 12/29/19 3 Impairment difficulty walking community distances Alf Goal (LTG) Patient able to consistently ambulate community distances wearing appropriate compression to bilateral LEs 09/30/19: no progress due to patient on hold due to Covid19 11/25/19:min improvement LTG Duration 12/29/19 2 Impairment pain bilateral LE's Pull Socket Assembler Goal (LTG) Decrease pain to no greater than 3/10 with decrease in lymphedema. 09/30/19: no progress due to patient on hold due to Covid19 11/25/19: mild goal progress LTG Duration 12/29/19 1 Impairment function-limiting lymphedema bilateral LE's Short Term Goal (STG) Educate patient in all aspects of lymphedema self-care including self-bandaging, skin care, self-MLD, exercise. 09/30/19: good goal progress 11/25/19: patient has now obtained Solaris ready-wrap compression alternatives with good tolerance, now able to be compliant with application of compression. Relies on children to help with application and with skin care due to obesity. Pull Socket Assembler Goal (LTG) Decrease edema to stable level to allow patient to be able to be fit with appropriate compression for home management. Patient to be independent with all components of self-care to include skin care, self MLD, exercise, and compression use. 11/25/19: good goal progress, especially with use of Solaris Ready-wrap LTG Duration 12/29/19 Assessment Summary Assessment Lymphedema showing improvement . Patient able to tolerate increased ther ex today; 5 min on Sci-Fit recumbant elliptical, added ther ex supine during MLD. noted improvement in dorsal foot swelling today. Good compliance to compression bilateral LE's now with use of Solaris ready-wraps, awaiting correct size for right foot so continues with use of Tubigrip Patient has 1 week left on IV antibiotics s/p diagnosis of cellulitis. Physical Therapy Plan Frequency and Duration Frequency of Treatment 3x/Week Duration of Treatment 12 wks Plan of Care Start Date 09/30/19 Plan of Care End Date 12/29/19 Therapeutic Interventions Therapeutic Interventions Lymphedema Management,Self- Care/Home Management, Therapeutic Exercises Next Visit Focus/Plan Next Note Type Treatment Note Next Visit Plan Continue lymphedema management for maximal reduction and facilitate patient obtaining long-term compression garments .
--- NOTE | 2019-11-26 16:25 | PT.OTN ---
Current Diagnoses Lymphedema, not elsewhere classified (11/26/19) Pain in right lower leg (11/26/19) Pain in left lower leg (11/26/19) Difficulty in walking, not elsewhere classified (11/26/19) Weakness (11/26/19) Physical Therapy Treatment Note PT-OP-A Visit Information Start: 07/03/19 10:30 Freq: Status: Active Protocol: Document 11/26/19 14:36 SAK (Rec: 11/26/19 14:38 SAK [id number]) Out-Patient Physical Therapy Visit Information Visit Information Visit Type Treatment Note Visit Note patient late due to construction traffic Visit Start Time 13:15 Visit Stop Time 14:30 Total Visit Minutes 75 Visit Number 12 Number of SENIOR GRADUATE ADVISOR Visits 0 Evaluation Information Evaluation Date 11/25/19 Precautions Precautions wound right LE PT-OP-B Current Condition Start: 07/03/19 10:30 Freq: Status: Active Protocol: Document 07/03/19 10:36 SAK (Rec: 07/03/19 12:00 SAK [id number]) Current Condition History of Current Condition Onset Date 1 1/2 years Current Complaints bilateral LE's History of Current Condition Prior to 1 1/2 years ago, legs would swell sometimes but it would go down, never stayed. Gradual worsening, swelling would stay longer periods of time, then got to the point didn't go away, just got worse and worse. States physician kept putting her on diuretics, not helpful. In ER in January for wound posterior right LE; continues with wound care department at [facility]. Has PE, on Warfarin. History of hernia surgery, appendix removal, 2 C sections , several ovarian cysts states noone wants to touch it. Right ovary removed due to a cyst. Compression stockings hard to get on and she states they don't seem to be helpful, not sure of compression level , doesn't have stockings with her this date. Very limited mobility, reports difficult to get to the bathroom at times. Prior Treatments and Tests diuretics compression stockings Treatment Goals Patient/Caregiver Goals Decrease swelling, be able to self-managel. Prior Functional Status Baseline Function- ADL's Independent Baseline Function- Mobility Independent Baseline Function- Gait independent no device Baseline Function- Recreation/Hobbies no limitations Current Functional Impairments (Reported) Functional Limitations- ADL's takes increased time Functional Limitations- Mobility/Gait decreased tolerance due to heaviness of her legs as well as pain Functional Limitations- Work/School unable Functional Limitations- Recreation/ limited to seated Hobbies Personal Factors Other Personal Factors That May Effect PMH: fibromyalgia Therapy/Recovery PT-OP-C Subjective Start: 07/03/19 10:30 Freq: Status: Active Protocol: Document 11/26/19 14:36 SAK (Rec: 11/26/19 16:24 SAK [id number]) OP-PT Subjective Patient Comments Patient Comments reports her son is getting good at applying the compression wraps. Open to trying toe and distal foot wrap to better compress distal foot on left. Still awaiting ankle component of her Solaris ready-wrap. PT-OP-E Functional Tests Start: 07/03/19 10:30 Freq: Status: Active Protocol: Document 07/03/19 10:36 SAK (Rec: 07/06/19 14:41 [facility] [id number]) Functional Tests 2 Minute Walk Test Distance 75 ft PT-OP-J Posture/Palpation/Skin Start: 07/03/19 10:30 Freq: Status: Active Protocol: Document 07/03/19 10:36 SAK (Rec: 07/06/19 14:41 [facility] [id number]) Palpation Assessment Location bilateral LE Palpation Findings Edema,Soft Tissue Tightness Palpation Details Fibrosis bilateral distal LE's between knee and ankles, though difficult to fully assess due to Coban on right LE Skin Assessment Other Assessments Skin Assessment Comments Right LE covered with Coban from knee to foot by wound care, not removed this date Mild hemosideran staining noted on left lower leg. PT-OP-K Range of Motion Start: 07/03/19 10:30 Freq: Status: Active Protocol: Document 07/03/19 10:36 SAK (Rec: 07/06/19 14:41 [facility] [id number]) Hip Goniometric Range of Motion Hip ernestine Hip ROM WFL Yes Knee Goniometric Range of Motion Knee ernestine Knee ROM WFL Yes Ankle and Foot Goniometric Range of Motion Ankle and Foot ernestine Ankle/Foot ROM WFL Yes PT-OP-M Strength Start: 07/03/19 10:30 Freq: Status: Active Protocol: Document 07/03/19 10:36 SAK (Rec: 07/06/19 14:41 [facility] [id number]) Hip Strength Hip Manual Muscle Testing ernestine Flexion (L2) 3- Fair- Extension (S1) 3- Fair- Abduction 3 Fair External Rotation 3+ Fair+ Internal Rotation 3+ Fair+ Knee Strength Knee Manual Muscle Testing ernestine Flexion (S2) 4- Good- Extension (L3) 4- Good- Ankle/Foot Strength Ankle and Foot Manual Muscle Testing ernestine Dorsiflexion (L4) 4 Good Plantarflexion (S1) 4 Good PT-OP-N Lymphedema Start: 07/03/19 10:30 Freq: Status: Active Protocol: Document 11/25/19 16:35 [facility] (Rec: 11/25/19 16:45 [facility] [id number]) Lymphedema Measurements Lower Extremity Circumference Measurements Left Affected MT Heads 26.5 cm Medial Malleolus 36.3 cm 10 cm From Medial Malleolus 44.5 cm 20 cm From Medial Malleolus 68.3 cm 30 cm From Medial Malleolus 73.5 cm 40 cm From Medial Malleolus 74.8 cm Right Affected MT Heads 27.7 cm Medial Malleolus 40.2 cm 10 cm From Medial Malleolus 56.2 cm 20 cm From Medial Malleolus 72.7 cm 30 cm From Medial Malleolus 79 cm 40 cm From Medial Malleolus 72.9 cm PT-OP-Q Treatments Start: 07/03/19 10:30 Freq: Status: Active Protocol: Document 11/26/19 14:36 [facility] (Rec: 11/26/19 16:24 [facility] [id number]) Cardio Equipment Recumbent Stepper (Sci-Fit) Duration (Minutes) 2 Resistance 1 Seat Position 13 Lymphedema Treatment Manual Lymphatic Drainage Location Trunk and bilateral LE's Duration 60 Lymphedema Wrapping Materials applied elastic 1 bandages to left toes and distal foot, Size F tubigrip to ernestine feet, size G ankle to right mid lower calf compression alternative wrap (Solaris ready wrap) to right lower leg, left lower leg and left foot. Sequential Lymphedema Exercises Location bilateral LE's Comments 10 reps ea Other Other application of lotion bilateral LE's: Phytoplex for skin care PT-OP-R Modalities Start: 07/03/19 10:30 Freq: Status: Active Protocol: Document 11/10/19 16:32 [facility] (Rec: 11/10/19 16:38 [facility] [id number]) Compression Pump Treatment Treatment Location Left Leg Pressure Amount (mmHg) (mmHG) 45 Inflation Time (Seconds) 10 Deflation Time (Seconds) 10 Treatment Duration (minutes) 30 Treatment Tolerance Good Treatment Comments patient right LE too large to fit even with paperhanger pipe. Pump used during MLD to right LE. PT-OP-T Assessment and Plan Start: 07/03/19 10:30 Freq: Status: Active Protocol: Document 11/26/19 14:36 SAK (Rec: 11/26/19 14:38 SAK [id number]) Physical Therapy Assessment Other Concerns Barriers to Rehabilitation Low activity level Fibromyalgia, hernia, arthritis, asthma, lack of lymphedema wrapping at home. Goals 4 Impairment weakness bilateral LE's Miner Assistant Goal (LTG) Patient to demonstrate improvement in LE strength to at least 4/5 throughout 09/30/19: No progress due to Covid19 11/24/28: Goal progress, improvement in exercise tolerance LTG Duration 12/29/19 3 Impairment difficulty walking community distances Miner Assistant Goal (LTG) Patient able to consistently ambulate community distances wearing appropriate compression to bilateral LEs 09/30/19: no progress due to patient on hold due to Covid19 11/25/19:min improvement LTG Duration 12/29/19 2 Impairment pain bilateral LE's Miner Assistant Goal (LTG) Decrease pain to no greater than 3/10 with decrease in lymphedema. 09/30/19: no progress due to patient on hold due to Covid19 11/25/19: mild goal progress LTG Duration 12/29/19 1 Impairment function-limiting lymphedema bilateral LE's Short Term Goal (STG) Educate patient in all aspects of lymphedema self-care including self-bandaging, skin care, self-MLD, exercise. 09/30/19: good goal progress 11/25/19: patient has now obtained Solaris ready-wrap compression alternatives with good tolerance, now able to be compliant with application of compression. Relies on children to help with application and with skin care due to obesity. Care Home Goal (LTG) Decrease edema to stable level to allow patient to be able to be fit with appropriate compression for home management. Patient to be independent with all components of self-care to include skin care, self MLD, exercise, and compression use. 11/25/19: good goal progress, especially with use of Solaris Ready-wrap LTG Duration 12/29/19 Assessment Summary Assessment Did not measure today due to time constraints, will measure circumference tomorrow. Due to no ankle component of right compression wraps added additional Tubigrip size G at ankle and lower calf. Wrapped toes and distal foot to better capture dorsal foot edema. Low tolerance for Sci- Fit due to pain, but patient willing to do 2 min. Physical Therapy Plan Frequency and Duration Frequency of Treatment 4x/Week Duration of Treatment 2 wks Therapeutic Interventions Therapeutic Interventions Lymphedema Management,Self- Care/Home Management, Therapeutic Exercises Next Visit Focus/Plan Next Note Type Treatment Note Next Visit Plan Continue lymphedema management for maximal reduction and facilitate patient obtaining long-term compression garments .
--- NOTE | 2019-11-27 13:26 | PT.OTN ---
Current Diagnoses Lymphedema, not elsewhere classified (11/27/19) Pain in right lower leg (11/27/19) Pain in left lower leg (11/27/19) Difficulty in walking, not elsewhere classified (11/27/19) Weakness (11/27/19) Physical Therapy Treatment Note PT-OP-A Visit Information Start: 07/03/19 10:30 Freq: Status: Active Protocol: Document 11/27/19 10:35 SAK (Rec: 11/27/19 10:46 SAK [id number]) Out-Patient Physical Therapy Visit Information Visit Information Visit Type Treatment Note Visit Start Time 10:30 Visit Stop Time 12:00 Total Visit Minutes 90 Visit Number 13 Number of HARVEST WORKER FIELD CROP Visits 0 Evaluation Information Evaluation Date 11/25/19 Precautions Precautions wound right LE PT-OP-B Current Condition Start: 07/03/19 10:30 Freq: Status: Active Protocol: Document 07/03/19 10:36 SAK (Rec: 07/03/19 12:00 SAK [id number]) Current Condition History of Current Condition Onset Date 1 1/2 years Current Complaints bilateral LE's History of Current Condition Prior to 1 1/2 years ago, legs would swell sometimes but it would go down, never stayed. Gradual worsening, swelling would stay longer periods of time, then got to the point didn't go away, just got worse and worse. States physician kept putting her on diuretics, not helpful. In ER in January for wound posterior right LE; continues with wound care department at [facility]. Has PE, on Warfarin. History of hernia surgery, appendix removal, 2 C sections , several ovarian cysts states noone wants to touch it. Right ovary removed due to a cyst. Compression stockings hard to get on and she states they don't seem to be helpful, not sure of compression level , doesn't have stockings with her this date. Very limited mobility, reports difficult to get to the bathroom at times. Prior Treatments and Tests diuretics compression stockings Treatment Goals Patient/Caregiver Goals Decrease swelling, be able to self-managel. Prior Functional Status Baseline Function- ADL's Independent Baseline Function- Mobility Independent Baseline Function- Gait independent no device Baseline Function- Recreation/Hobbies no limitations Current Functional Impairments (Reported) Functional Limitations- ADL's takes increased time Functional Limitations- Mobility/Gait decreased tolerance due to heaviness of her legs as well as pain Functional Limitations- Work/School unable Functional Limitations- Recreation/ limited to seated Hobbies Personal Factors Other Personal Factors That May Effect PMH: fibromyalgia Therapy/Recovery PT-OP-C Subjective Start: 07/03/19 10:30 Freq: Status: Active Protocol: Document 11/26/19 14:36 SAK (Rec: 11/26/19 16:24 [facility] [id number]) OP-PT Subjective Patient Comments Patient Comments reports her son is getting good at applying the compression wraps. Open to trying toe and distal foot wrap to better compress distal foot on left. Still awaiting ankle component of her Solaris ready-wrap. PT-OP-E Functional Tests Start: 07/03/19 10:30 Freq: Status: Active Protocol: Document 07/03/19 10:36 SAK (Rec: 07/06/19 14:41 [facility] [id number]) Functional Tests 2 Minute Walk Test Distance 75 ft PT-OP-J Posture/Palpation/Skin Start: 07/03/19 10:30 Freq: Status: Active Protocol: Document 07/03/19 10:36 SAK (Rec: 07/06/19 14:41 [facility] [id number]) Palpation Assessment Location bilateral LE Palpation Findings Edema,Soft Tissue Tightness Palpation Details Fibrosis bilateral distal LE's between knee and ankles, though difficult to fully assess due to Coban on right LE Skin Assessment Other Assessments Skin Assessment Comments Right LE covered with Coban from knee to foot by wound care, not removed this date Mild hemosideran staining noted on left lower leg. PT-OP-K Range of Motion Start: 07/03/19 10:30 Freq: Status: Active Protocol: Document 07/03/19 10:36 SAK (Rec: 07/06/19 14:41 [facility] [id number]) Hip Goniometric Range of Motion Hip ernestine Hip ROM WFL Yes Knee Goniometric Range of Motion Knee ernestine Knee ROM WFL Yes Ankle and Foot Goniometric Range of Motion Ankle and Foot ernestine Ankle/Foot ROM WFL Yes PT-OP-M Strength Start: 07/03/19 10:30 Freq: Status: Active Protocol: Document 07/03/19 10:36 SAK (Rec: 07/06/19 14:41 [facility] [id number]) Hip Strength Hip Manual Muscle Testing ernestine Flexion (L2) 3- Fair- Extension (S1) 3- Fair- Abduction 3 Fair External Rotation 3+ Fair+ Internal Rotation 3+ Fair+ Knee Strength Knee Manual Muscle Testing ernestine Flexion (S2) 4- Good- Extension (L3) 4- Good- Ankle/Foot Strength Ankle and Foot Manual Muscle Testing ernestine Dorsiflexion (L4) 4 Good Plantarflexion (S1) 4 Good PT-OP-N Lymphedema Start: 07/03/19 10:30 Freq: Status: Active Protocol: Document 11/25/19 16:35 [facility] (Rec: 11/25/19 16:45 [facility] [id number]) Lymphedema Measurements Lower Extremity Circumference Measurements Left Affected MT Heads 26.5 cm Medial Malleolus 36.3 cm 10 cm From Medial Malleolus 44.5 cm 20 cm From Medial Malleolus 68.3 cm 30 cm From Medial Malleolus 73.5 cm 40 cm From Medial Malleolus 74.8 cm Right Affected MT Heads 27.7 cm Medial Malleolus 40.2 cm 10 cm From Medial Malleolus 56.2 cm 20 cm From Medial Malleolus 72.7 cm 30 cm From Medial Malleolus 79 cm 40 cm From Medial Malleolus 72.9 cm PT-OP-Q Treatments Start: 07/03/19 10:30 Freq: Status: Active Protocol: Document 11/27/19 10:35 [facility] (Rec: 11/27/19 10:46 [facility] [id number]) Cardio Equipment Recumbent Stepper (Sci-Fit) Duration (Minutes) 3 Resistance 1 Seat Position 13 Lymphedema Treatment Manual Lymphatic Drainage Location Trunk and bilateral LE's Duration 60 Lymphedema Wrapping Materials applied elastic 1 bandages to left toes and distal foot, Size F tubigrip to ernestine feet, size G ankle to right mid lower calf compression alternative wrap (Solaris ready wrap) to right lower leg, left lower leg and left foot. Sequential Lymphedema Exercises Location bilateral LE's Comments 10 reps ea Other Other application of lotion bilateral LE's: Phytoplex for skin care PT-OP-R Modalities Start: 07/03/19 10:30 Freq: Status: Active Protocol: Document 11/10/19 16:32 SAK (Rec: 11/10/19 16:38 SAK [id number]) Compression Pump Treatment Treatment Location Left Leg Pressure Amount (mmHg) (mmHG) 45 Inflation Time (Seconds) 10 Deflation Time (Seconds) 10 Treatment Duration (minutes) 30 Treatment Tolerance Good Treatment Comments patient right LE too large to fit even with senior sql server database developer. Pump used during MLD to right LE. PT-OP-T Assessment and Plan Start: 07/03/19 10:30 Freq: Status: Active Protocol: Document 11/27/19 10:35 SAK (Rec: 11/27/19 10:46 [facility] [id number]) Physical Therapy Assessment Other Concerns Barriers to Rehabilitation Low activity level Fibromyalgia, hernia, arthritis, asthma, lack of lymphedema wrapping at home. Goals 4 Impairment weakness bilateral LE's Machine Inker Goal (LTG) Patient to demonstrate improvement in LE strength to at least 4/5 throughout 09/30/19: No progress due to Covid19 11/24/28: Goal progress, improvement in exercise tolerance LTG Duration 12/29/19 3 Impairment difficulty walking community distances Machine Inker Goal (LTG) Patient able to consistently ambulate community distances wearing appropriate compression to bilateral LEs 09/30/19: no progress due to patient on hold due to Covid19 11/25/19:min improvement LTG Duration 12/29/19 2 Impairment pain bilateral LE's Intermediate Goal (LTG) Decrease pain to no greater than 3/10 with decrease in lymphedema. 09/30/19: no progress due to patient on hold due to Covid19 11/25/19: mild goal progress LTG Duration 12/29/19 1 Impairment function-limiting lymphedema bilateral LE's Short Term Goal (STG) Educate patient in all aspects of lymphedema self-care including self-bandaging, skin care, self-MLD, exercise. 09/30/19: good goal progress 11/25/19: patient has now obtained Solaris ready-wrap compression alternatives with good tolerance, now able to be compliant with application of compression. Relies on children to help with application and with skin care due to obesity. Machine Inker Goal (LTG) Decrease edema to stable level to allow patient to be able to be fit with appropriate compression for home management. Patient to be independent with all components of self-care to include skin care, self MLD, exercise, and compression use. 11/25/19: good goal progress, especially with use of Solaris Ready-wrap LTG Duration 12/29/19 Assessment Summary Assessment Noting decrease in fibrosis in patient calves. Circumferential measurements decreased significantly, good progress. Knee pain limited Sci-Fit to 3 min. Physical Therapy Plan Frequency and Duration Frequency of Treatment 4x/Week Duration of Treatment 2 wks Therapeutic Interventions Therapeutic Interventions Lymphedema Management,Self- Care/Home Management, Therapeutic Exercises Next Visit Focus/Plan Next Note Type Treatment Note Next Visit Plan Continue lymphedema management for maximal reduction and facilitate patient obtaining long-term compression garments .
--- NOTE | 2019-12-01 16:57 | PT.OTN ---
Current Diagnoses Lymphedema, not elsewhere classified (12/01/19) Pain in right lower leg (12/01/19) Pain in left lower leg (12/01/19) Difficulty in walking, not elsewhere classified (12/01/19) Weakness (12/01/19) Physical Therapy Treatment Note PT-OP-A Visit Information Start: 07/03/19 10:30 Freq: Status: Active Protocol: Document 12/01/19 16:44 SAK (Rec: 12/01/19 16:57 [facility] [id number]) Out-Patient Physical Therapy Visit Information Visit Information Visit Type Treatment Note Visit Start Time 14:30 Visit Stop Time 16:02 Total Visit Minutes 92 Visit Number 14 Number of SFDC DEVELOPER Visits 0 Evaluation Information Evaluation Date 11/25/19 Precautions Precautions wound right LE PT-OP-B Current Condition Start: 07/03/19 10:30 Freq: Status: Active Protocol: Document 07/03/19 10:36 SAK (Rec: 07/03/19 12:00 SAK [id number]) Current Condition History of Current Condition Onset Date 1 1/2 years Current Complaints bilateral LE's History of Current Condition Prior to 1 1/2 years ago, legs would swell sometimes but it would go down, never stayed. Gradual worsening, swelling would stay longer periods of time, then got to the point didn't go away, just got worse and worse. States physician kept putting her on diuretics, not helpful. In ER in January for wound posterior right LE; continues with wound care department at [facility]. Has PE, on Warfarin. History of hernia surgery, appendix removal, 2 C sections , several ovarian cysts states noone wants to touch it. Right ovary removed due to a cyst. Compression stockings hard to get on and she states they don't seem to be helpful, not sure of compression level , doesn't have stockings with her this date. Very limited mobility, reports difficult to get to the bathroom at times. Prior Treatments and Tests diuretics compression stockings Treatment Goals Patient/Caregiver Goals Decrease swelling, be able to self-managel. Prior Functional Status Baseline Function- ADL's Independent Baseline Function- Mobility Independent Baseline Function- Gait independent no device Baseline Function- Recreation/Hobbies no limitations Current Functional Impairments (Reported) Functional Limitations- ADL's takes increased time Functional Limitations- Mobility/Gait decreased tolerance due to heaviness of her legs as well as pain Functional Limitations- Work/School unable Functional Limitations- Recreation/ limited to seated Hobbies Personal Factors Other Personal Factors That May Effect PMH: fibromyalgia Therapy/Recovery PT-OP-C Subjective Start: 07/03/19 10:30 Freq: Status: Active Protocol: Document 12/01/19 16:44 SAK (Rec: 12/01/19 16:57 SAK [id number]) OP-PT Subjective Patient Comments Patient Comments States she feels more swollen over the past couple days, has not yet received ankle and foot component of her Solaris Ready Wraps. Unsure of reason for increase in edema, reports good compliance to compression, exercises, no change in diet or activity. Does report feeling very hot with weather. PT-OP-E Functional Tests Start: 07/03/19 10:30 Freq: Status: Active Protocol: Document 07/03/19 10:36 [facility] (Rec: 07/06/19 14:41 [facility] [id number]) Functional Tests 2 Minute Walk Test Distance 75 ft PT-OP-J Posture/Palpation/Skin Start: 07/03/19 10:30 Freq: Status: Active Protocol: Document 07/03/19 10:36 [facility] (Rec: 07/06/19 14:41 [facility] [id number]) Palpation Assessment Location bilateral LE Palpation Findings Edema,Soft Tissue Tightness Palpation Details Fibrosis bilateral distal LE's between knee and ankles, though difficult to fully assess due to Coban on right LE Skin Assessment Other Assessments Skin Assessment Comments Right LE covered with Coban from knee to foot by wound care, not removed this date Mild hemosideran staining noted on left lower leg. PT-OP-K Range of Motion Start: 07/03/19 10:30 Freq: Status: Active Protocol: Document 07/03/19 10:36 [facility] (Rec: 07/06/19 14:41 [facility] [id number]) Hip Goniometric Range of Motion Hip ernestine Hip ROM WFL Yes Knee Goniometric Range of Motion Knee ernestine Knee ROM WFL Yes Ankle and Foot Goniometric Range of Motion Ankle and Foot ernestine Ankle/Foot ROM WFL Yes PT-OP-M Strength Start: 07/03/19 10:30 Freq: Status: Active Protocol: Document 07/03/19 10:36 SAK (Rec: 07/06/19 14:41 [facility] [id number]) Hip Strength Hip Manual Muscle Testing ernestine Flexion (L2) 3- Fair- Extension (S1) 3- Fair- Abduction 3 Fair External Rotation 3+ Fair+ Internal Rotation 3+ Fair+ Knee Strength Knee Manual Muscle Testing ernestine Flexion (S2) 4- Good- Extension (L3) 4- Good- Ankle/Foot Strength Ankle and Foot Manual Muscle Testing ernestine Dorsiflexion (L4) 4 Good Plantarflexion (S1) 4 Good PT-OP-N Lymphedema Start: 07/03/19 10:30 Freq: Status: Active Protocol: Document 12/01/19 16:44 [facility] (Rec: 12/01/19 16:57 [facility] [id number]) Lymphedema Measurements Lower Extremity Circumference Measurements Left Affected MT Heads 26.9 cm Medial Malleolus 38.1 cm 10 cm From Medial Malleolus 45.1 cm 20 cm From Medial Malleolus 67.7 cm 30 cm From Medial Malleolus 72.4 cm 40 cm From Medial Malleolus 76.2 cm Right Affected MT Heads 27.5 cm Medial Malleolus 26.7 cm 10 cm From Medial Malleolus 39.4 cm 20 cm From Medial Malleolus 55.6 cm 30 cm From Medial Malleolus 71.6 cm 40 cm From Medial Malleolus 79.8 cm 50 cm From Medial Malleolus 75.2 cm PT-OP-Q Treatments Start: 07/03/19 10:30 Freq: Status: Active Protocol: Document 12/01/19 16:44 [facility] (Rec: 12/01/19 16:57 [facility] [id number]) Cardio Equipment Recumbent Stepper (Sci-Fit) Duration (Minutes) 4 Resistance 1 Seat Position 15 Other unable to tolerate closer distance d/t left knee pain Therapeutic Exercises Supine Exercises hamstring stretch Reps/Minutes 2x30 Comments manual Lymphedema Treatment Manual Lymphatic Drainage Location Trunk and bilateral LE's Duration 60 Lymphedema Wrapping Body Location ernestine LE's Materials elastic 1 bandages bilateral toes and distal feet, size F tubigrip ernestine feet, size H ankle to left mid lower calf, foot ankle Solaris Ready wrap applied to right as trial, lower leg Ready wraps applied bilateral LE's Sequential Lymphedema Exercises Location bilateral LE's Comments 10 reps ea Other Other application of lotion bilateral LE's: Phytoplex for skin care Patient given [facility] clinic information as possible option for medical weight loss. Instrsucted patient in increasing activity level at home for increased muscle pump for lymphedema control. 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 Pump used during MLD to right LE. PT-OP-T Assessment and Plan Start: 07/03/19 10:30 Freq: Status: Active Protocol: Document 12/01/19 16:44 SAK (Rec: 12/01/19 16:57 [facility] [id number]) Physical Therapy Assessment Other Concerns Barriers to Rehabilitation Low activity level Fibromyalgia, hernia, arthritis, asthma, obesity Goals 4 Impairment weakness bilateral LE's Piggery Worker Goal (LTG) Patient to demonstrate improvement in LE strength to at least 4/5 throughout 09/30/19: No progress due to Covid19 11/24/28: Goal progress, improvement in exercise tolerance LTG Duration 12/29/19 3 Impairment difficulty walking community distances [facility] Goal (LTG) Patient able to consistently ambulate community distances wearing appropriate compression to bilateral LEs 09/30/19: no progress due to patient on hold due to Covid19 11/25/19:min improvement LTG Duration 12/29/19 2 Impairment pain bilateral LE's [facility] Goal (LTG) Decrease pain to no greater than 3/10 with decrease in lymphedema. 09/30/19: no progress due to patient on hold due to Covid19 11/25/19: mild goal progress LTG Duration 12/29/19 1 Impairment function-limiting lymphedema bilateral LE's Short Term Goal (STG) Educate patient in all aspects of lymphedema self-care including self-bandaging, skin care, self-MLD, exercise. 09/30/19: good goal progress 11/25/19: patient has now obtained Solaris ready-wrap compression alternatives with good tolerance, now able to be compliant with application of compression. Relies on children to help with application and with skin care due to obesity. Piggery Worker Goal (LTG) Decrease edema to stable level to allow patient to be able to be fit with appropriate compression for home management. Patient to be independent with all components of self-care to include skin care, self MLD, exercise, and compression use. 11/25/19: good goal progress, especially with use of Solaris Ready-wrap LTG Duration 12/29/19 Assessment Summary Assessment Increase in circumferential measurements noted today, cause uncertain, though still awaiting ankle/foot comoponent of the Solaris Ready Wraps for right foot and ankle Physical Therapy Plan Frequency and Duration Frequency of Treatment 4x/Week Duration of Treatment 2 wks Therapeutic Interventions Therapeutic Interventions Lymphedema Management,Self- Care/Home Management, Therapeutic Exercises Next Visit Focus/Plan Next Note Type Treatment Note Next Visit Plan Continue daily treatments 3 more sessions, then decrease to 2x/wk. Help patient find compression tights recommend vikram length to further facilitate lymphatic flow out of LE's. Problem solve foot and ankle compression as await Ready wraps.
--- NOTE | 2019-12-02 10:57 | PT.OTN ---
Current Diagnoses Lymphedema, not elsewhere classified (12/02/19) Pain in right lower leg (12/02/19) Pain in left lower leg (12/02/19) Difficulty in walking, not elsewhere classified (12/02/19) Weakness (12/02/19) Physical Therapy Treatment Note PT-OP-A Visit Information Start: 07/03/19 10:30 Freq: Status: Active Protocol: Document 12/02/19 10:49 SAK (Rec: 12/02/19 10:57 [facility] [id number]) Out-Patient Physical Therapy Visit Information Visit Information Visit Type Treatment Note Visit Start Time 09:00 Visit Stop Time 10:30 Total Visit Minutes 90 Visit Number 15 Number of AMUSEMENT OR RECREATION CARD CHECKER Visits 0 Evaluation Information Evaluation Date 11/25/19 Precautions Precautions wound right LE PT-OP-B Current Condition Start: 07/03/19 10:30 Freq: Status: Active Protocol: Document 07/03/19 10:36 SAK (Rec: 07/03/19 12:00 [facility] [id number]) Current Condition History of Current Condition Onset Date 1 1/2 years Current Complaints bilateral LE's History of Current Condition Prior to 1 1/2 years ago, legs would swell sometimes but it would go down, never stayed. Gradual worsening, swelling would stay longer periods of time, then got to the point didn't go away, just got worse and worse. States physician kept putting her on diuretics, not helpful. In ER in January for wound posterior right LE; continues with wound care department at [facility]. Has PE, on Warfarin. History of hernia surgery, appendix removal, 2 C sections , several ovarian cysts states noone wants to touch it. Right ovary removed due to a cyst. Compression stockings hard to get on and she states they don't seem to be helpful, not sure of compression level , doesn't have stockings with her this date. Very limited mobility, reports difficult to get to the bathroom at times. Prior Treatments and Tests diuretics compression stockings Treatment Goals Patient/Caregiver Goals Decrease swelling, be able to self-managel. Prior Functional Status Baseline Function- ADL's Independent Baseline Function- Mobility Independent Baseline Function- Gait independent no device Baseline Function- Recreation/Hobbies no limitations Current Functional Impairments (Reported) Functional Limitations- ADL's takes increased time Functional Limitations- Mobility/Gait decreased tolerance due to heaviness of her legs as well as pain Functional Limitations- Work/School unable Functional Limitations- Recreation/ limited to seated Hobbies Personal Factors Other Personal Factors That May Effect PMH: fibromyalgia Therapy/Recovery PT-OP-C Subjective Start: 07/03/19 10:30 Freq: Status: Active Protocol: Document 12/02/19 10:49 SAK (Rec: 12/02/19 10:57 SAK [id number]) OP-PT Subjective Patient Comments Patient Comments Some better after yesterday. Hasn't received foot/ankle component of wrap yet, tubigrip did not work well. PT-OP-E Functional Tests Start: 07/03/19 10:30 Freq: Status: Active Protocol: Document 07/03/19 10:36 SAK (Rec: 07/06/19 14:41 SAK [id number]) Functional Tests 2 Minute Walk Test Distance 75 ft PT-OP-J Posture/Palpation/Skin Start: 07/03/19 10:30 Freq: Status: Active Protocol: Document 07/03/19 10:36 SAK (Rec: 07/06/19 14:41 [facility] [id number]) Palpation Assessment Location bilateral LE Palpation Findings Edema,Soft Tissue Tightness Palpation Details Fibrosis bilateral distal LE's between knee and ankles, though difficult to fully assess due to Coban on right LE Skin Assessment Other Assessments Skin Assessment Comments Right LE covered with Coban from knee to foot by wound care, not removed this date Mild hemosideran staining noted on left lower leg. PT-OP-K Range of Motion Start: 07/03/19 10:30 Freq: Status: Active Protocol: Document 07/03/19 10:36 SAK (Rec: 07/06/19 14:41 [facility] [id number]) Hip Goniometric Range of Motion Hip ernestine Hip ROM WFL Yes Knee Goniometric Range of Motion Knee ernestine Knee ROM WFL Yes Ankle and Foot Goniometric Range of Motion Ankle and Foot ernestine Ankle/Foot ROM WFL Yes PT-OP-M Strength Start: 07/03/19 10:30 Freq: Status: Active Protocol: Document 07/03/19 10:36 SAK (Rec: 07/06/19 14:41 SAK [id number]) Hip Strength Hip Manual Muscle Testing ernestine Flexion (L2) 3- Fair- Extension (S1) 3- Fair- Abduction 3 Fair External Rotation 3+ Fair+ Internal Rotation 3+ Fair+ Knee Strength Knee Manual Muscle Testing ernestine Flexion (S2) 4- Good- Extension (L3) 4- Good- Ankle/Foot Strength Ankle and Foot Manual Muscle Testing ernestine Dorsiflexion (L4) 4 Good Plantarflexion (S1) 4 Good PT-OP-N Lymphedema Start: 07/03/19 10:30 Freq: Status: Active Protocol: Document 12/01/19 16:44 [facility] (Rec: 12/01/19 16:57 [facility] [id number]) Lymphedema Measurements Lower Extremity Circumference Measurements Left Affected MT Heads 26.9 cm Medial Malleolus 38.1 cm 10 cm From Medial Malleolus 45.1 cm 20 cm From Medial Malleolus 67.7 cm 30 cm From Medial Malleolus 72.4 cm 40 cm From Medial Malleolus 76.2 cm Right Affected MT Heads 27.5 cm Medial Malleolus 26.7 cm 10 cm From Medial Malleolus 39.4 cm 20 cm From Medial Malleolus 55.6 cm 30 cm From Medial Malleolus 71.6 cm 40 cm From Medial Malleolus 79.8 cm 50 cm From Medial Malleolus 75.2 cm PT-OP-Q Treatments Start: 07/03/19 10:30 Freq: Status: Active Protocol: Document 12/02/19 10:49 [facility] (Rec: 12/02/19 10:57 [facility] [id number]) Cardio Equipment Recumbent Stepper (Sci-Fit) Other increased supine ex instead Therapeutic Exercises Supine Exercises hamstring stretch Reps/Minutes 2x30 Comments manual Lymphedema Treatment Manual Lymphatic Drainage Location Trunk and bilateral LE's Duration 60 Comments knees on 12 roll Lymphedema Wrapping Body Location ernestine LE's Materials Right: Tricofix, toe wraps, Artiflex and Comprilan toes to above ankle, Solaris Ready wrap Left: Tricofix, Tubigrip F to foot, Solaris Ready wrap toes to knee Sequential Lymphedema Exercises Location bilateral LE's Comments 10 reps ea added SAQ, assisted hip abd Compression Garment Assessment Compression Garment Assessment Details Recommended patient obtain vikram length compression tights to facilitate further lymphatic flow; found on [employer] up to 5XL Other Other application of lotion bilateral LE's: Phytoplex for skin care Patient given [facility] clinic information as possible option for medical weight loss. Instrsucted patient in increasing activity level at home for increased muscle pump for lymphedema control. 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 Pump used during MLD to right LE. PT-OP-T Assessment and Plan Start: 07/03/19 10:30 Freq: Status: Active Protocol: Document 12/02/19 10:49 SAK (Rec: 12/02/19 10:57 SAK [id number]) Physical Therapy Assessment Other Concerns Barriers to Rehabilitation Low activity level Fibromyalgia, hernia, arthritis, asthma, obesity Goals 4 Impairment weakness bilateral LE's [facility] Goal (LTG) Patient to demonstrate improvement in LE strength to at least 4/5 throughout 09/30/19: No progress due to Covid19 11/24/28: Goal progress, improvement in exercise tolerance LTG Duration 12/29/19 3 Impairment difficulty walking community distances [facility] Goal (LTG) Patient able to consistently ambulate community distances wearing appropriate compression to bilateral LEs 09/30/19: no progress due to patient on hold due to Covid19 11/25/19:min improvement LTG Duration 12/29/19 2 Impairment pain bilateral LE's Senior Java 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 09/30/19: no progress due to patient on hold due to Covid19 11/25/19: mild goal progress LTG Duration 12/29/19 1 Impairment function-limiting lymphedema bilateral LE's Short Term Goal (STG) Educate patient in all aspects of lymphedema self-care including self-bandaging, skin care, self-MLD, exercise. 09/30/19: good goal progress 11/25/19: patient has now obtained Solaris ready-wrap compression alternatives with good tolerance, now able to be compliant with application of compression. Relies on children to help with application and with skin care due to obesity. Senior Java Programmer Goal (LTG) Decrease edema to stable level to allow patient to be able to be fit with appropriate compression for home management. Patient to be independent with all components of self-care to include skin care, self MLD, exercise, and compression use. 11/25/19: good goal progress, especially with use of Solaris Ready-wrap LTG Duration 12/29/19 Assessment Summary Assessment Increase in circumferential measurements noted today, cause uncertain, though still awaiting ankle/foot comoponent of the Solaris Ready Wraps for right foot and ankle Physical Therapy Plan Frequency and Duration Frequency of Treatment 4x/Week Duration of Treatment 2 wks Therapeutic Interventions Therapeutic Interventions Lymphedema Management,Self- Care/Home Management, Therapeutic Exercises Next Visit Focus/Plan Next Note Type Treatment Note Next Visit Plan Assess response to Artiflex and Comprilan application today with ready wraps. Continue daily treatments 2 more sessions, then decrease to 2x/wk. Help patient find compression tights recommend vikram length to further facilitate lymphatic flow out of LE's.
--- NOTE | 2019-12-03 14:46 | PT-OP ANOTE ---
cancelled PT appointment due to problems with pic line. Showed up for appointment, but prior to PT wound care nurse assessed left UE and recommended ER. PT transported patient to ER via w/c.
--- NOTE | 2019-12-04 17:24 | PT.OTN ---
Current Diagnoses Lymphedema, not elsewhere classified (12/04/19) Pain in right lower leg (12/04/19) Pain in left lower leg (12/04/19) Difficulty in walking, not elsewhere classified (12/04/19) Weakness (12/04/19) Physical Therapy Treatment Note PT-OP-A Visit Information Start: 07/03/19 10:30 Freq: Status: Active Protocol: Document 12/04/19 09:00 SAK (Rec: 12/04/19 17:23 [facility] [id number]) Out-Patient Physical Therapy Visit Information Visit Information Visit Type Treatment Note Visit Start Time 09:00 Visit Stop Time 10:30 Total Visit Minutes 90 Visit Number 16 Number of LIVESTOCK RANCH HAND Visits 0 Evaluation Information Evaluation Date 11/25/19 Precautions Precautions wound right LE PT-OP-B Current Condition Start: 07/03/19 10:30 Freq: Status: Active Protocol: Document 07/03/19 10:36 SAK (Rec: 07/03/19 12:00 [facility] [id number]) Current Condition History of Current Condition Onset Date 1 1/2 years Current Complaints bilateral LE's History of Current Condition Prior to 1 1/2 years ago, legs would swell sometimes but it would go down, never stayed. Gradual worsening, swelling would stay longer periods of time, then got to the point didn't go away, just got worse and worse. States physician kept putting her on diuretics, not helpful. In ER in January for wound posterior right LE; continues with wound care department at [facility]. Has PE, on Warfarin. History of hernia surgery, appendix removal, 2 C sections , several ovarian cysts states noone wants to touch it. Right ovary removed due to a cyst. Compression stockings hard to get on and she states they don't seem to be helpful, not sure of compression level , doesn't have stockings with her this date. Very limited mobility, reports difficult to get to the bathroom at times. Prior Treatments and Tests diuretics compression stockings Treatment Goals Patient/Caregiver Goals Decrease swelling, be able to self-managel. Prior Functional Status Baseline Function- ADL's Independent Baseline Function- Mobility Independent Baseline Function- Gait independent no device Baseline Function- Recreation/Hobbies no limitations Current Functional Impairments (Reported) Functional Limitations- ADL's takes increased time Functional Limitations- Mobility/Gait decreased tolerance due to heaviness of her legs as well as pain Functional Limitations- Work/School unable Functional Limitations- Recreation/ limited to seated Hobbies Personal Factors Other Personal Factors That May Effect PMH: fibromyalgia Therapy/Recovery PT-OP-C Subjective Start: 07/03/19 10:30 Freq: Status: Active Protocol: Document 12/04/19 09:00 SAK (Rec: 12/04/19 17:23 [facility] [id number]) OP-PT Subjective Patient Comments Patient Comments Patient reports nothing was done for her left UE; no clot found, no other diagnosis. Advised to follow-up with her physician regarding her left UE. Disappointed to have missed her PT appointment yesterday. PT-OP-E Functional Tests Start: 07/03/19 10:30 Freq: Status: Active Protocol: Document 07/03/19 10:36 [facility] (Rec: 07/06/19 14:41 [facility] [id number]) Functional Tests 2 Minute Walk Test Distance 75 ft PT-OP-J Posture/Palpation/Skin Start: 07/03/19 10:30 Freq: Status: Active Protocol: Document 07/03/19 10:36 [facility] (Rec: 07/06/19 14:41 [facility] [id number]) Palpation Assessment Location bilateral LE Palpation Findings Edema,Soft Tissue Tightness Palpation Details Fibrosis bilateral distal LE's between knee and ankles, though difficult to fully assess due to Coban on right LE Skin Assessment Other Assessments Skin Assessment Comments Right LE covered with Coban from knee to foot by wound care, not removed this date Mild hemosideran staining noted on left lower leg. PT-OP-K Range of Motion Start: 07/03/19 10:30 Freq: Status: Active Protocol: Document 07/03/19 10:36 [facility] (Rec: 07/06/19 14:41 [facility] [id number]) Hip Goniometric Range of Motion Hip ernestine Hip ROM WFL Yes Knee Goniometric Range of Motion Knee ernestine Knee ROM WFL Yes Ankle and Foot Goniometric Range of Motion Ankle and Foot ernestine Ankle/Foot ROM WFL Yes PT-OP-M Strength Start: 07/03/19 10:30 Freq: Status: Active Protocol: Document 07/03/19 10:36 [facility] (Rec: 07/06/19 14:41 [facility] [id number]) Hip Strength Hip Manual Muscle Testing ernestien Flexion (L2) 3- Fair- Extension (S1) 3- Fair- Abduction 3 Fair External Rotation 3+ Fair+ Internal Rotation 3+ Fair+ Knee Strength Knee Manual Muscle Testing ernestine Flexion (S2) 4- Good- Extension (L3) 4- Good- Ankle/Foot Strength Ankle and Foot Manual Muscle Testing ernestine Dorsiflexion (L4) 4 Good Plantarflexion (S1) 4 Good PT-OP-N Lymphedema Start: 07/03/19 10:30 Freq: Status: Active Protocol: Document 12/01/19 16:44 [facility] (Rec: 12/01/19 16:57 [facility] [id number]) Lymphedema Measurements Lower Extremity Circumference Measurements Left Affected MT Heads 26.9 cm Medial Malleolus 38.1 cm 10 cm From Medial Malleolus 45.1 cm 20 cm From Medial Malleolus 67.7 cm 30 cm From Medial Malleolus 72.4 cm 40 cm From Medial Malleolus 76.2 cm Right Affected MT Heads 27.5 cm Medial Malleolus 26.7 cm 10 cm From Medial Malleolus 39.4 cm 20 cm From Medial Malleolus 55.6 cm 30 cm From Medial Malleolus 71.6 cm 40 cm From Medial Malleolus 79.8 cm 50 cm From Medial Malleolus 75.2 cm PT-OP-Q Treatments Start: 07/03/19 10:30 Freq: Status: Active Protocol: Document 12/04/19 09:00 [facility] (Rec: 12/04/19 17:23 [facility] [id number]) Cardio Equipment Recumbent Stepper (Sci-Fit) Duration (Minutes) 6 Resistance 1 Seat Position 15 Lymphedema Treatment Manual Lymphatic Drainage Location Trunk and bilateral LE's Duration 60 Comments knees on 12 roll Lymphedema Wrapping Body Location ernestine LE's Materials Right: Tricofix, toe wraps, Artiflex and Comprilan toes to above ankle, Solaris Ready wrap Left: Tricofix, Tubigrip F to foot, Solaris Ready wrap toes to knee Sequential Lymphedema Exercises Location bilateral LE's Comments 10 reps ea added SAQ, assisted hip abd Compression Garment Assessment Compression Garment Assessment Details Recommended patient obtain vikram length compression tights to facilitate further lymphatic flow; found on [employer] up to 5XL Other Other application of lotion bilateral LE's: Phytoplex for skin care Patient given [facility] clinic information as possible option for medical weight loss. Instrsucted patient in increasing activity level at home for increased muscle pump for lymphedema control. PT-OP-R Modalities Start: 07/03/19 10:30 Freq: Status: Active Protocol: Document 11/10/19 16:32 SAK (Rec: 11/10/19 16:38 [facility] [id number]) Compression Pump Treatment Treatment Location Left Leg Pressure Amount (mmHg) (mmHG) 45 Inflation Time (Seconds) 10 Deflation Time (Seconds) 10 Treatment Duration (minutes) 30 Treatment Tolerance Good Treatment Comments patient right LE too large to fit even with legal coordinator. Pump used during MLD to right LE. PT-OP-T Assessment and Plan Start: 07/03/19 10:30 Freq: Status: Active Protocol: Document 12/04/19 09:00 [facility] (Rec: 12/04/19 17:23 [facility] [id number]) Physical Therapy Assessment Other Concerns Barriers to Rehabilitation Low activity level Fibromyalgia, hernia, arthritis, asthma, obesity Goals 4 Impairment weakness bilateral LE's Mcc Goal (LTG) Patient to demonstrate improvement in LE strength to at least 4/5 throughout 09/30/19: No progress due to Covid19 11/24/28: Goal progress, improvement in exercise tolerance LTG Duration 12/29/19 3 Impairment difficulty walking community distances Mcc Goal (LTG) Patient able to consistently ambulate community distances wearing appropriate compression to bilateral LEs 09/30/19: no progress due to patient on hold due to Covid19 11/25/19:min improvement LTG Duration 12/29/19 2 Impairment pain bilateral LE's Coordinator Of Library Services Goal (LTG) Decrease pain to no greater than 3/10 with decrease in lymphedema. 09/30/19: no progress due to patient on hold due to Covid19 11/25/19: mild goal progress LTG Duration 12/29/19 1 Impairment function-limiting lymphedema bilateral LE's Short Term Goal (STG) Educate patient in all aspects of lymphedema self-care including self-bandaging, skin care, self-MLD, exercise. 09/30/19: good goal progress 11/25/19: patient has now obtained Solaris ready-wrap compression alternatives with good tolerance, now able to be compliant with application of compression. Relies on children to help with application and with skin care due to obesity. Coordinator Of Library Services Goal (LTG) Decrease edema to stable level to allow patient to be able to be fit with appropriate compression for home management. Patient to be independent with all components of self-care to include skin care, self MLD, exercise, and compression use. 11/25/19: good goal progress, especially with use of Solaris Ready-wrap LTG Duration 12/29/19 Assessment Summary Assessment Decrease in circumferential measurements bilateral LE's today. Good progress. Physical Therapy Plan Frequency and Duration Frequency of Treatment 2x/wk Duration of Treatment 12 Plan of Care Start Date 09/30/19 Plan of Care End Date 12/29/19 Therapeutic Interventions Therapeutic Interventions Lymphedema Management,Self- Care/Home Management, Therapeutic Exercises Next Visit Focus/Plan Next Note Type Treatment Note Next Visit Plan Returning to 2x/wk PT at this time. Depending on progress may need to do another round of daily treatments x 2 wks, will assess progress.
--- NOTE | 2019-12-09 16:28 | PT.OTN ---
Current Diagnoses Lymphedema, not elsewhere classified (12/09/19) Pain in right lower leg (12/09/19) Pain in left lower leg (12/09/19) Difficulty in walking, not elsewhere classified (12/09/19) Weakness (12/09/19) Physical Therapy Treatment Note PT-OP-A Visit Information Start: 07/03/19 10:30 Freq: Status: Active Protocol: Document 12/09/19 16:20 [facility] (Rec: 12/09/19 16:26 [facility] [id number]) Out-Patient Physical Therapy Visit Information Visit Information Visit Type Treatment Note Visit Start Time 14:35 Visit Stop Time 16:10 Total Visit Minutes 95 Visit Number 17 Number of LEAD INFRASTRUCTURE ARCHITECT Visits 0 Evaluation Information Evaluation Date 11/25/19 Precautions Precautions wound right LE PT-OP-B Current Condition Start: 07/03/19 10:30 Freq: Status: Active Protocol: Document 07/03/19 10:36 [facility] (Rec: 07/03/19 12:00 [facility] [id number]) Current Condition History of Current Condition Onset Date 1 1/2 years Current Complaints bilateral LE's History of Current Condition Prior to 1 1/2 years ago, legs would swell sometimes but it would go down, never stayed. Gradual worsening, swelling would stay longer periods of time, then got to the point didn't go away, just got worse and worse. States physician kept putting her on diuretics, not helpful. In ER in January for wound posterior right LE; continues with wound care department at [facility]. Has PE, on Warfarin. History of hernia surgery, appendix removal, 2 C sections , several ovarian cysts states noone wants to touch it. Right ovary removed due to a cyst. Compression stockings hard to get on and she states they don't seem to be helpful, not sure of compression level , doesn't have stockings with her this date. Very limited mobility, reports difficult to get to the bathroom at times. Prior Treatments and Tests diuretics compression stockings Treatment Goals Patient/Caregiver Goals Decrease swelling, be able to self-managel. Prior Functional Status Baseline Function- ADL's Independent Baseline Function- Mobility Independent Baseline Function- Gait independent no device Baseline Function- Recreation/Hobbies no limitations Current Functional Impairments (Reported) Functional Limitations- ADL's takes increased time Functional Limitations- Mobility/Gait decreased tolerance due to heaviness of her legs as well as pain Functional Limitations- Work/School unable Functional Limitations- Recreation/ limited to seated Hobbies Personal Factors Other Personal Factors That May Effect PMH: fibromyalgia Therapy/Recovery PT-OP-C Subjective Start: 07/03/19 10:30 Freq: Status: Active Protocol: Document 12/09/19 16:20 [facility] (Rec: 12/09/19 16:26 [facility] [id number]) OP-PT Subjective Patient Comments Patient Comments Patient reports doing better today with swelling, but right LE very sore because she just finished in wound care and they did some debridement. Still hasn't gotten compression for right ankle yet. PT-OP-E Functional Tests Start: 07/03/19 10:30 Freq: Status: Active Protocol: Document 07/03/19 10:36 [facility] (Rec: 07/06/19 14:41 [facility] [id number]) Functional Tests 2 Minute Walk Test Distance 75 ft PT-OP-J Posture/Palpation/Skin Start: 07/03/19 10:30 Freq: Status: Active Protocol: Document 07/03/19 10:36 [facility] (Rec: 07/06/19 14:41 [facility] [id number]) Palpation Assessment Location bilateral LE Palpation Findings Edema,Soft Tissue Tightness Palpation Details Fibrosis bilateral distal LE's between knee and ankles, though difficult to fully assess due to Coban on right LE Skin Assessment Other Assessments Skin Assessment Comments Right LE covered with Coban from knee to foot by wound care, not removed this date Mild hemosideran staining noted on left lower leg. PT-OP-K Range of Motion Start: 07/03/19 10:30 Freq: Status: Active Protocol: Document 07/03/19 10:36 [facility] (Rec: 07/06/19 14:41 [facility] [id number]) Hip Goniometric Range of Motion Hip ernestine Hip ROM WFL Yes Knee Goniometric Range of Motion Knee ernestine Knee ROM WFL Yes Ankle and Foot Goniometric Range of Motion Ankle and Foot ernestine Ankle/Foot ROM WFL Yes PT-OP-M Strength Start: 07/03/19 10:30 Freq: Status: Active Protocol: Document 07/03/19 10:36 [facility] (Rec: 07/06/19 14:41 [facility] [id number]) Hip Strength Hip Manual Muscle Testing ernestine Flexion (L2) 3- Fair- Extension (S1) 3- Fair- Abduction 3 Fair External Rotation 3+ Fair+ Internal Rotation 3+ Fair+ Knee Strength Knee Manual Muscle Testing ernestine Flexion (S2) 4- Good- Extension (L3) 4- Good- Ankle/Foot Strength Ankle and Foot Manual Muscle Testing ernestine Dorsiflexion (L4) 4 Good Plantarflexion (S1) 4 Good PT-OP-N Lymphedema Start: 07/03/19 10:30 Freq: Status: Active Protocol: Document 12/09/19 14:35 [facility] (Rec: 12/09/19 16:28 [facility] [id number]) Lymphedema Measurements Lower Extremity Circumference Measurements Left Affected MT Heads 24.2 cm Medial Malleolus 32.4 cm 10 cm From Medial Malleolus 44.1 cm 20 cm From Medial Malleolus 64 cm 30 cm From Medial Malleolus 66.2 cm 40 cm From Medial Malleolus 75.1 cm Right Affected MT Heads 26.5 cm Medial Malleolus 38.4 cm 10 cm From Medial Malleolus 48.3 cm 20 cm From Medial Malleolus 68 cm 30 cm From Medial Malleolus 74.8 cm 40 cm From Medial Malleolus 69.9 cm PT-OP-Q Treatments Start: 07/03/19 10:30 Freq: Status: Active Protocol: Document 12/09/19 16:20 [facility] (Rec: 12/09/19 16:26 [facility] [id number]) Cardio Equipment Recumbent Stepper (Sci-Fit) Duration (Minutes) 5 Resistance 1 Seat Position 15 Lymphedema Treatment Manual Lymphatic Drainage Location Trunk and bilateral LE's Duration 60 Comments knees on 12 roll Lymphedema Wrapping Body Location ernestine LE's Materials Right: Tricofix, toe wraps, Artiflex and Comprilan toes to above ankle, Solaris Ready wrap Left: Tricofix, Tubigrip F to foot, Solaris Ready wrap toes to knee Sequential Lymphedema Exercises Location bilateral LE's Comments 10 reps ea added SAQ, assisted hip abd Compression Garment Assessment Compression Garment Assessment Details Patient continues to try to find best vikram length compression for her; exploring online. Other Other application of lotion bilateral LE's: Phytoplex for skin care Patient given [facility] clinic information as possible option for medical weight loss. Instrsucted patient in increasing activity level at home for increased muscle pump for lymphedema control. PT-OP-R Modalities Start: 07/03/19 10:30 Freq: Status: Active Protocol: Document 11/10/19 16:32 [facility] (Rec: 11/10/19 16:38 [facility] [id number]) Compression Pump Treatment Treatment Location Left Leg Pressure Amount (mmHg) (mmHG) 45 Inflation Time (Seconds) 10 Deflation Time (Seconds) 10 Treatment Duration (minutes) 30 Treatment Tolerance Good Treatment Comments patient right LE too large to fit even with student. Pump used during MLD to right LE. PT-OP-T Assessment and Plan Start: 07/03/19 10:30 Freq: Status: Active Protocol: Document 12/09/19 16:20 [facility] (Rec: 12/09/19 16:26 [facility] [id number]) Physical Therapy Assessment Other Concerns Barriers to Rehabilitation Low activity level Fibromyalgia, hernia, arthritis, asthma, obesity Goals 4 Impairment weakness bilateral LE's Cane Burner Goal (LTG) Patient to demonstrate improvement in LE strength to at least 4/5 throughout 09/30/19: No progress due to Covid19 11/24/28: Goal progress, improvement in exercise tolerance LTG Duration 12/29/19 3 Impairment difficulty walking community distances Cane Burner Goal (LTG) Patient able to consistently ambulate community distances wearing appropriate compression to bilateral LEs 09/30/19: no progress due to patient on hold due to Covid19 11/25/19:min improvement LTG Duration 12/29/19 2 Impairment pain bilateral LE's Cane Burner Goal (LTG) Decrease pain to no greater than 3/10 with decrease in lymphedema. 09/30/19: no progress due to patient on hold due to Covid19 11/25/19: mild goal progress LTG Duration 12/29/19 1 Impairment function-limiting lymphedema bilateral LE's Short Term Goal (STG) Educate patient in all aspects of lymphedema self-care including self-bandaging, skin care, self-MLD, exercise. 09/30/19: good goal progress 11/25/19: patient has now obtained Solaris ready-wrap compression alternatives with good tolerance, now able to be compliant with application of compression. Relies on children to help with application and with skin care due to obesity. Snf Goal (LTG) Decrease edema to stable level to allow patient to be able to be fit with appropriate compression for home management. Patient to be independent with all components of self-care to include skin care, self MLD, exercise, and compression use. 11/25/19: good goal progress, especially with use of Solaris Ready-wrap LTG Duration 12/29/19 Assessment Summary Assessment Good reduction in circumferential measurements noted today, continues to progress. Tolerating increased exercise. Physical Therapy Plan Frequency and Duration Frequency of Treatment 2x/wk Duration of Treatment 12 Plan of Care Start Date 09/30/19 Plan of Care End Date 12/29/19 Therapeutic Interventions Therapeutic Interventions Lymphedema Management,Self- Care/Home Management, Therapeutic Exercises Next Visit Focus/Plan Next Note Type Treatment Note Next Visit Plan Returning to 2x/wk PT at this time. Depending on progress may need to do another round of daily treatments x 2 wks, will assess progress.
--- NOTE | 2019-12-11 12:20 | PT.OTN ---
Current Diagnoses Lymphedema, not elsewhere classified (12/11/19) Pain in right lower leg (12/11/19) Pain in left lower leg (12/11/19) Difficulty in walking, not elsewhere classified (12/11/19) Weakness (12/11/19) Physical Therapy Treatment Note PT-OP-A Visit Information Start: 07/03/19 10:30 Freq: Status: Active Protocol: Document 12/11/19 11:14 [facility] (Rec: 12/11/19 11:36 [facility] [id number]) Out-Patient Physical Therapy Visit Information Visit Information Visit Type Treatment Note Visit Start Time 11:14 Visit Stop Time 12:03 Total Visit Minutes 49 Visit Number [address] Visits 0 Evaluation Information Evaluation Date 11/25/19 Precautions Precautions wound right LE PT-OP-B Current Condition Start: 07/03/19 10:30 Freq: Status: Active Protocol: Document 07/03/19 10:36 [facility] (Rec: 07/03/19 12:00 [facility] [id number]) Current Condition History of Current Condition Onset Date 1 1/2 years Current Complaints bilateral LE's History of Current Condition Prior to 1 1/2 years ago, legs would swell sometimes but it would go down, never stayed. Gradual worsening, swelling would stay longer periods of time, then got to the point didn't go away, just got worse and worse. States physician kept putting her on diuretics, not helpful. In ER in January for wound posterior right LE; continues with wound care department at [facility]. Has PE, on Warfarin. History of hernia surgery, appendix removal, 2 C sections , several ovarian cysts states noone wants to touch it. Right ovary removed due to a cyst. Compression stockings hard to get on and she states they don't seem to be helpful, not sure of compression level , doesn't have stockings with her this date. Very limited mobility, reports difficult to get to the bathroom at times. Prior Treatments and Tests diuretics compression stockings Treatment Goals Patient/Caregiver Goals Decrease swelling, be able to self-managel. Prior Functional Status Baseline Function- ADL's Independent Baseline Function- Mobility Independent Baseline Function- Gait independent no device Baseline Function- Recreation/Hobbies no limitations Current Functional Impairments (Reported) Functional Limitations- ADL's takes increased time Functional Limitations- Mobility/Gait decreased tolerance due to heaviness of her legs as well as pain Functional Limitations- Work/School unable Functional Limitations- Recreation/ limited to seated Hobbies Personal Factors Other Personal Factors That May Effect PMH: fibromyalgia Therapy/Recovery PT-OP-C Subjective Start: 07/03/19 10:30 Freq: Status: Active Protocol: Document 12/11/19 11:14 [facility] (Rec: 12/11/19 11:36 [facility] [id number]) OP-PT Subjective Patient Comments Patient Comments No new c/o, didn't realize today was shorter scheduled treatment. Finally able to talk with Hellen from [facility] who will check about ankle foot compression. Limited with activity by right knee pain but willing to try some standing today PT-OP-E Functional Tests Start: 07/03/19 10:30 Freq: Status: Active Protocol: Document 07/03/19 10:36 [facility] (Rec: 07/06/19 14:41 [facility] [id number]) Functional Tests 2 Minute Walk Test Distance 75 ft PT-OP-J Posture/Palpation/Skin Start: 07/03/19 10:30 Freq: Status: Active Protocol: Document 07/03/19 10:36 [facility] (Rec: 07/06/19 14:41 [facility] [id number]) Palpation Assessment Location bilateral LE Palpation Findings Edema,Soft Tissue Tightness Palpation Details Fibrosis bilateral distal LE's between knee and ankles, though difficult to fully assess due to Coban on right LE Skin Assessment Other Assessments Skin Assessment Comments Right LE covered with Coban from knee to foot by wound care, not removed this date Mild hemosideran staining noted on left lower leg. PT-OP-K Range of Motion Start: 07/03/19 10:30 Freq: Status: Active Protocol: Document 07/03/19 10:36 [facility] (Rec: 07/06/19 14:41 [facility] [id number]) Hip Goniometric Range of Motion Hip ernestine Hip ROM WFL Yes Knee Goniometric Range of Motion Knee ernestine Knee ROM WFL Yes Ankle and Foot Goniometric Range of Motion Ankle and Foot ernestine Ankle/Foot ROM WFL Yes PT-OP-M Strength Start: 07/03/19 10:30 Freq: Status: Active Protocol: Document 07/03/19 10:36 [facility] (Rec: 07/06/19 14:41 [facility] [id number]) Hip Strength Hip Manual Muscle Testing ernestine Flexion (L2) 3- Fair- Extension (S1) 3- Fair- Abduction 3 Fair External Rotation 3+ Fair+ Internal Rotation 3+ Fair+ Knee Strength Knee Manual Muscle Testing ernestine Flexion (S2) 4- Good- Extension (L3) 4- Good- Ankle/Foot Strength Ankle and Foot Manual Muscle Testing ernestine Dorsiflexion (L4) 4 Good Plantarflexion (S1) 4 Good PT-OP-N Lymphedema Start: 07/03/19 10:30 Freq: Status: Active Protocol: Document 12/09/19 14:35 [facility] (Rec: 12/09/19 16:28 [facility] [id number]) Lymphedema Measurements Lower Extremity Circumference Measurements Left Affected MT Heads 24.2 cm Medial Malleolus 32.4 cm 10 cm From Medial Malleolus 44.1 cm 20 cm From Medial Malleolus 64 cm 30 cm From Medial Malleolus 66.2 cm 40 cm From Medial Malleolus 75.1 cm Right Affected MT Heads 26.5 cm Medial Malleolus 38.4 cm 10 cm From Medial Malleolus 48.3 cm 20 cm From Medial Malleolus 68 cm 30 cm From Medial Malleolus 74.8 cm 40 cm From Medial Malleolus 69.9 cm PT-OP-Q Treatments Start: 07/03/19 10:30 Freq: Status: Active Protocol: Document 12/11/19 11:14 [facility] (Rec: 12/11/19 11:36 [facility] [id number]) Cardio Equipment Recumbent Stepper (Sci-Fit) Duration (Minutes) 5 Resistance 1 Seat Position 13 Therapeutic Exercises Sitting Exercises LAQ Reps/Minutes 5x2 Comments (modified with slider sheet right) seated crunch Reps/Minutes 10x hip ab/ad Reps/Minutes 10x Standing Exercises sidestep Reps/Minutes 5'x2 walk in [address] Reps/Minutes 10x heel toe raise Reps/Minutes 10x Comments small amplitude Other Exercises walk Equipment Used straight cane Reps/Minutes 65' Lymphedema Treatment Lymphedema Wrapping Body Location ernestine LE's Materials Right: Tricofix, toe wraps, Artiflex and Comprilan toes to above ankle, Solaris Ready wrap Left: Tricofix, Tubigrip F to foot, Solaris Ready wrap toes to knee Sequential Lymphedema Exercises Location bilateral LE's Comments 10 reps ea Compression Garment Assessment Compression Garment Assessment Details Patient continues to try to find best vikram length compression for her; exploring online. Other Other application of lotion bilateral LE's: Phytoplex for skin care Patient given [facility] clinic information as possible option for medical weight loss. Instrsucted patient in increasing activity level at home for increased muscle pump for lymphedema control. 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 Pump used during MLD to right LE. PT-OP-T Assessment and Plan Start: 07/03/19 10:30 Freq: Status: Active Protocol: Document 12/11/19 11:14 [facility] (Rec: 12/11/19 11:36 [facility] [id number]) Physical Therapy Assessment Other Concerns Barriers to Rehabilitation Low activity level Fibromyalgia, hernia, arthritis, asthma, obesity Goals 4 Impairment weakness bilateral LE's Edge Brusher Goal (LTG) Patient to demonstrate improvement in LE strength to at least 4/5 throughout 09/30/19: No progress due to Covid19 11/24/28: Goal progress, improvement in exercise tolerance LTG Duration 12/29/19 3 Impairment difficulty walking community distances Shelter Goal (LTG) Patient able to consistently ambulate community distances wearing appropriate compression to bilateral LEs 09/30/19: no progress due to patient on hold due to Covid19 11/25/19:min improvement LTG Duration 12/29/19 2 Impairment pain bilateral LE's Edge Brusher Goal (LTG) Decrease pain to no greater than 3/10 with decrease in lymphedema. 09/30/19: no progress due to patient on hold due to Covid19 11/25/19: mild goal progress LTG Duration 12/29/19 1 Impairment function-limiting lymphedema bilateral LE's Short Term Goal (STG) Educate patient in all aspects of lymphedema self-care including self-bandaging, skin care, self-MLD, exercise. 09/30/19: good goal progress 11/25/19: patient has now obtained Solaris ready-wrap compression alternatives with good tolerance, now able to be compliant with application of compression. Relies on children to help with application and with skin care due to obesity. Edge Brusher Goal (LTG) Decrease edema to stable level to allow patient to be able to be fit with appropriate compression for home management. Patient to be independent with all components of self-care to include skin care, self MLD, exercise, and compression use. 11/25/19: good goal progress, especially with use of Solaris Ready-wrap LTG Duration 12/29/19 Assessment Summary Assessment no measurements taken today due to shortened treatment, increased emphasis on exercise . Patient highly motivated to continue with ther ex to improve strength, activity tolerance, and lymphatic flow. Physical Therapy Plan Frequency and Duration Frequency of Treatment 2x/wk Duration of Treatment 12 Plan of Care Start Date 09/30/19 Plan of Care End Date 12/29/19 Therapeutic Interventions Therapeutic Interventions Lymphedema Management,Self- Care/Home Management, Therapeutic Exercises Next Visit Focus/Plan Next Note Type Treatment Note Next Visit Plan No PT next week due to therapist gone. Patient has multiple medical appointments as well. Will resume the following week.
--- NOTE | 2019-12-29 16:00 | PT.OTRE ---
Current Diagnoses Lymphedema, not elsewhere classified (12/29/19) Pain in right lower leg (12/29/19) Pain in left lower leg (12/29/19) Difficulty in walking, not elsewhere classified (12/29/19) Weakness (12/29/19) Past Medical History (Last Updated 12/22/19 @ 14:01 by Ivy Crystal DO) Concentric left ventricular hypertrophy (Acute ~05/2017) Hypertension (Chronic) Hypertriglyceridemia (Inactive) Kidney stones (Acute) Lymphedema (Acute) Migraines (Chronic) Moderate persistent asthma (Acute) Ovarian cyst (Resolved 03/28/15) Pneumonia (Resolved 2008) Restrictive lung disease (Acute) Sleep apnea (Chronic) Wound of right lower extremity (Inactive) Surgical History (Last Reviewed 12/16/19 @ 23:21 by Ernesto Foreman DO) History of (Acute) History of esophagogastroduodenoscopy (EGD) (Acute ~04/2015) History of hernia repair (Acute) History of laparoscopic appendectomy (Resolved 03/28/15) History of ovarian cystectomy (Resolved) History of placement of ear tubes (Resolved) History of tonsillectomy (Resolved) Visit Care Team Role Provider Type Ivy Crystal DO Primary Care Provider Physician Specialty: Family Practice Address: [address] [place] [address], [address], [address] Email: [email or web address] Chidi Roblero MD Attending Provider Physician Referring Provider Specialty: Wound Care Address: [address] [place] [address], [address] Email: [email or web address] Physical Therapy Re-Evaluation PT-OP-A Visit Information Start: 07/03/19 10:30 Freq: Status: Active Protocol: Document 12/29/19 16:19 [facility] (Rec: 12/29/19 16:26 [facility] [id number]) Out-Patient Physical Therapy Visit Information Visit Information Visit Type Treatment Note Visit Start Time 14:30 Visit Stop Time 16:05 Total Visit Minutes 95 Visit Number 19 Evaluation Information Evaluation Date 11/25/19 PT-OP-B Current Condition Start: 07/03/19 10:30 Freq: Status: Active Protocol: Document 07/03/19 10:36 [facility] (Rec: 07/03/19 12:00 [facility] [id number]) Current Condition History of Current Condition Onset Date 1 1/2 years Current Complaints bilateral LE's History of Current Condition Prior to 1 1/2 years ago, legs would swell sometimes but it would go down, never stayed. Gradual worsening, swelling would stay longer periods of time, then got to the point didn't go away, just got worse and worse. States physician kept putting her on diuretics, not helpful. In ER in January for wound posterior right LE; continues with wound care department at [facility]. Has PE, on Warfarin. History of hernia surgery, appendix removal, 2 C sections , several ovarian cysts states noone wants to touch it. Right ovary removed due to a cyst. Compression stockings hard to get on and she states they don't seem to be helpful, not sure of compression level , doesn't have stockings with her this date. Very limited mobility, reports difficult to get to the bathroom at times. Prior Treatments and Tests diuretics compression stockings Treatment Goals Patient/Caregiver Goals Decrease swelling, be able to self-managel. Prior Functional Status Baseline Function- ADL's Independent Baseline Function- Mobility Independent Baseline Function- Gait independent no device Baseline Function- Recreation/Hobbies no limitations Current Functional Impairments (Reported) Functional Limitations- ADL's takes increased time Functional Limitations- Mobility/Gait decreased tolerance due to heaviness of her legs as well as pain Functional Limitations- Work/School unable Functional Limitations- Recreation/ limited to seated Hobbies Personal Factors Other Personal Factors That May Effect PMH: fibromyalgia Therapy/Recovery PT-OP-C Subjective Start: 07/03/19 10:30 Freq: Status: Active Protocol: Document 12/29/19 16:19 [facility] (Rec: 12/29/19 16:26 [facility] [id number]) OP-PT Subjective Patient Comments Patient Comments States she had a rough weekend , is seeing infectious disease specialist tomorrow in [place]. Very painful and swollen. Just finished with wound care. PT-OP-E Functional Tests Start: 07/03/19 10:30 Freq: Status: Active Protocol: Document 07/03/19 10:36 [facility] (Rec: 07/06/19 14:41 [facility] [id number]) Functional Tests 2 Minute Walk Test Distance 75 ft PT-OP-J Posture/Palpation/Skin Start: 07/03/19 10:30 Freq: Status: Active Protocol: Document 07/03/19 10:36 [facility] (Rec: 07/06/19 14:41 [facility] [id number]) Palpation Assessment Location bilateral LE Palpation Findings Edema,Soft Tissue Tightness Palpation Details Fibrosis bilateral distal LE's between knee and ankles, though difficult to fully assess due to Coban on right LE Skin Assessment Other Assessments Skin Assessment Comments Right LE covered with Coban from knee to foot by wound care, not removed this date Mild hemosideran staining noted on left lower leg. PT-OP-K Range of Motion Start: 07/03/19 10:30 Freq: Status: Active Protocol: Document 07/03/19 10:36 [facility] (Rec: 07/06/19 14:41 [facility] [id number]) Hip Goniometric Range of Motion Hip Measured in Degrees ernestine Hip ROM WFL Yes Knee Goniometric Range of Motion Knee Measured in Degrees ernestine Knee ROM WFL Yes Ankle and Foot Goniometric Range of Motion Ankle and Foot Measured in Degrees ernestine Ankle/Foot ROM WFL Yes PT-OP-M Strength Start: 07/03/19 10:30 Freq: Status: Active Protocol: Document 07/03/19 10:36 [facility] (Rec: 07/06/19 14:41 [facility] [id number]) Hip Strength Hip Manual Muscle Testing ernestine Flexion (L2) 3- Fair- Extension (S1) 3- Fair- Abduction 3 Fair External Rotation 3+ Fair+ Internal Rotation 3+ Fair+ Knee Strength Knee Manual Muscle Testing ernestine Flexion (S2) 4- Good- Extension (L3) 4- Good- Ankle/Foot Strength Ankle and Foot Manual Muscle Testing ernestine Dorsiflexion (L4) 4 Good Plantarflexion (S1) 4 Good PT-OP-N Lymphedema Start: 07/03/19 10:30 Freq: Status: Active Protocol: Document 12/29/19 16:19 [facility] (Rec: 12/29/19 16:26 [facility] [id number]) Lymphedema Measurements Lower Extremity Circumference Measurements Left Affected MT Heads 24.5 cm Medial Malleolus 37.9 cm 10 cm From Medial Malleolus 45.7 cm 20 cm From Medial Malleolus 65 cm 30 cm From Medial Malleolus 73.4 cm 40 cm From Medial Malleolus 77.9 cm Right Affected MT Heads 27.7 cm Medial Malleolus 40.9 cm 10 cm From Medial Malleolus 56.4 cm 20 cm From Medial Malleolus 73.4 cm 30 cm From Medial Malleolus 81.5 cm 40 cm From Medial Malleolus 81 cm PT-OP-Q Treatments Start: 07/03/19 10:30 Freq: Status: Active Protocol: Document 12/29/19 16:19 [facility] (Rec: 12/29/19 16:26 [facility] [id number]) Cardio Equipment Recumbent Stepper (Sci-Fit) Other refused; too painful and fatigued today. Lymphedema Treatment Lymphedema Wrapping Body Location ernestine LE's Materials Right: Tricofix, toe wraps, Artiflex and Comprilan toes to knee due to increase in swelling Left: Tricofix, toe wraps, Tubigrip F to foot, Solaris Ready wrap toes to knee Sequential Lymphedema Exercises Location bilateral LE's Comments 10 reps ea Compression Garment Assessment Compression Garment Assessment Details has ordered vikram tights Other Other application of lotion bilateral LE's: Phytoplex for skin care PT-OP-R Modalities Start: 07/03/19 10:30 Freq: Status: Active Protocol: Document 11/10/19 16:32 [facility] (Rec: 11/10/19 16:38 [facility] [id number]) Compression Pump Treatment Treatment Location Left Leg Pressure Amount (mmHg) (mmHG) 45 Inflation Time (Seconds) 10 Deflation Time (Seconds) 10 Treatment Duration (minutes) 30 Treatment Tolerance Good Treatment Comments patient right LE too large to fit even with client relation specialist. Pump used during MLD to right LE. PT-OP-T Assessment and Plan Start: 07/03/19 10:30 Freq: Status: Active Protocol: Document 12/29/19 16:19 [facility] (Rec: 12/29/19 16:26 [facility] [id number]) Physical Therapy Assessment Other Concerns Barriers to Rehabilitation Low activity level Fibromyalgia, hernia, arthritis, asthma, obesity Goals 4 Impairment weakness bilateral LE's Director Building Goal (LTG) Patient to demonstrate improvement in LE strength to at least 4/5 throughout 09/30/19: No progress due to Covid19 11/24/28: Goal progress, improvement in exercise tolerance 12/29/19: Had been making gains but due to recent exacerbation with cellulitis, activity level very limited again, unable to tolerate MMT. LTG Duration 03/31/20 3 Impairment difficulty walking community distances Care Home Goal (LTG) Patient able to consistently ambulate community distances wearing appropriate compression to bilateral LEs 09/30/19: no progress due to patient on hold due to Covid19 11/25/19:min improvement 12/29/19: Had been making improvements until recent cellulitis with lymphedema exacerbation, legs heavy, minimal ability to ambulate LTG Duration 03/31/20 2 Impairment pain bilateral LE's Care Home Goal (LTG) Decrease pain to no greater than 3/10 with decrease in lymphedema. 09/30/19: no progress due to patient on hold due to Covid19 11/25/19: mild goal progress 12/29/19: again worsened due to recent cellulitis with increased pain LTG Duration 03/31/20 1 Impairment function-limiting lymphedema bilateral LE's Short Term Goal (STG) Educate patient in all aspects of lymphedema self-care including self-bandaging, skin care, self-MLD, exercise. 09/30/19: good goal progress 11/25/19: patient has now obtained Solaris ready-wrap compression alternatives with good tolerance, now able to be compliant with application of compression. Relies on children to help with application and with skin care due to obesity. 12/29/19: good goal progress with use of compression alternatives, though still awaiting delievery of appropriate size foot component right. STG Duration 01/28/20 Care Home Goal (LTG) Decrease edema to stable level to allow patient to be able to be fit with appropriate compression for home management. Patient to be independent with all components of self-care to include skin care, self MLD, exercise, and compression use. 11/25/19: good goal progress, especially with use of Solaris Ready-wrap 12/29/19: good goal progress though with adjustments needing to be made due to recent exacerbation LTG Duration 03/31/20 Assessment Summary Assessment Minimal changes in LE circumference, patient continues on antibiotics and sees infectious disease specialist tomorrow. Patient had been making good progress toward all goals, but with recent cellulitis with exacerbation of lymphedema, status in all goals has declined with patient having difficulty functioning and self-managing. Physical Therapy Plan Frequency and Duration Frequency of Treatment 2x/wk Duration of Treatment 12 Plan of Care Start Date 12/29/19 Plan of Care End Date 03/31/20 Therapeutic Interventions Therapeutic Interventions Lymphedema Management,Self- Care/Home Management, Therapeutic Exercises Next Visit Focus/Plan Next Note Type Treatment Note Next Visit Plan continue lymphedema management pending any further recommendations from infectious disease specialist.
--- NOTE | 2019-12-29 16:00 | PT.OPPOC ---
Physical, Occupational & Speech Therapy At [facility] Current Diagnoses Lymphedema, not elsewhere classified (12/29/19) Pain in right lower leg (12/29/19) Pain in left lower leg (12/29/19) Difficulty in walking, not elsewhere classified (12/29/19) Weakness (12/29/19) Visit Care Team Role Provider Type Ivy Crystal DO Primary Care Provider Physician Specialty: Family Practice Address: [address] [place] [address], [address], [address] Email: [email or web address] Chidi Roblero MD Attending Provider Physician Referring Provider Specialty: Wound Care Address: [address] [place] [address], [address] Email: [email or web address] Plan Of Care PT-OP-T Assessment and Plan Start: 07/03/19 10:30 Freq: Status: Active Protocol: Document 12/29/19 16:19 [facility] (Rec: 12/29/19 16:26 [facility] [id number]) Physical Therapy Assessment Other Concerns Barriers to Rehabilitation Low activity level Fibromyalgia, hernia, arthritis, asthma, obesity Goals 4 Impairment weakness bilateral LE's Tool Or Die Drawing Checker Goal (LTG) Patient to demonstrate improvement in LE strength to at least 4/5 throughout 09/30/19: No progress due to Covid19 11/24/28: Goal progress, improvement in exercise tolerance 12/29/19: Had been making gains but due to recent exacerbation with cellulitis, activity level very limited again, unable to tolerate MMT. LTG Duration 03/31/20 3 Impairment difficulty walking community distances [facility]pc Goal (LTG) Patient able to consistently ambulate community distances wearing appropriate compression to bilateral LEs 09/30/19: no progress due to patient on hold due to Covid19 11/25/19:min improvement 12/29/19: Had been making improvements until recent cellulitis with lymphedema exacerbation, legs heavy, minimal ability to ambulate LTG Duration 03/31/20 2 Impairment pain bilateral LE's Fpc Goal (LTG) Decrease pain to no greater than 3/10 with decrease in lymphedema. 09/30/19: no progress due to patient on hold due to Covid19 11/25/19: mild goal progress 12/29/19: again worsened due to recent cellulitis with increased pain LTG Duration 03/31/20 1 Impairment function-limiting lymphedema bilateral LE's Short Term Goal (STG) Educate patient in all aspects of lymphedema self-care including self-bandaging, skin care, self-MLD, exercise. 09/30/19: good goal progress 11/25/19: patient has now obtained Solaris ready-wrap compression alternatives with good tolerance, now able to be compliant with application of compression. Relies on children to help with application and with skin care due to obesity. 12/29/19: good goal progress with use of compression alternatives, though still awaiting delievery of appropriate size foot component right. STG Duration 01/28/20 [facility]pc Goal (LTG) Decrease edema to stable level to allow patient to be able to be fit with appropriate compression for home management. Patient to be independent with all components of self-care to include skin care, self MLD, exercise, and compression use. 11/25/19: good goal progress, especially with use of Solaris Ready-wrap 12/29/19: good goal progress though with adjustments needing to be made due to recent exacerbation LTG Duration 03/31/20 Assessment Summary Assessment Minimal changes in LE circumference, patient continues on antibiotics and sees infectious disease specialist tomorrow. Patient had been making good progress toward all goals, but with recent cellulitis with exacerbation of lymphedema, status in all goals has declined with patient having difficulty functioning and self-managing. Physical Therapy Plan Frequency and Duration Frequency of Treatment 2x/wk Duration of Treatment 12 Plan of Care Start Date 12/29/19 Plan of Care End Date 03/31/20 Therapeutic Interventions Therapeutic Interventions Lymphedema Management,Self- Care/Home Management, Therapeutic Exercises Next Visit Focus/Plan Next Note Type Treatment Note Next Visit Plan continue lymphedema management pending any further recommendations from infectious disease specialist. Plan of Care Dates Plan of Care Start Date 12/29/19 Plan of Care End Date 03/31/20 Electronically Signed by: Julia Herrera, PT 01/01/20 0812 Please Sign and Return: I have reviewed this Plan of Care and certify that the skilled therapy services above are required to meet the patient?s needs. Physician Signature Date Printed Name and Credentials Clinical Instructor Signature Printed Name and Credentials
--- NOTE | 2019-12-29 16:00 | PT.OPPOC ---
Physical, Occupational & Speech Therapy At [facility] Current Diagnoses Lymphedema, not elsewhere classified (12/29/19) Pain in right lower leg (12/29/19) Pain in left lower leg (12/29/19) Difficulty in walking, not elsewhere classified (12/29/19) Weakness (12/29/19) Visit Care Team Role Provider Type Ivy Crystal DO Primary Care Provider Physician Specialty: Family Practice Address: [address] [place] [address], [address], [address] Email: [email or web address] Chidi Roblero MD Attending Provider Physician Referring Provider Specialty: Wound Care Address: [address] [place] [address], [address] Email: [email or web address] Plan Of Care PT-OP-T Assessment and Plan Start: 07/03/19 10:30 Freq: Status: Active Protocol: Document 12/29/19 16:19 [facility] (Rec: 12/29/19 16:26 [facility] [id number]) Physical Therapy Assessment Other Concerns Barriers to Rehabilitation Low activity level Fibromyalgia, hernia, arthritis, asthma, obesity Goals 4 Impairment weakness bilateral LE's Respiratory Care Program Director Goal (LTG) Patient to demonstrate improvement in LE strength to at least 4/5 throughout 09/30/19: No progress due to Covid19 11/24/28: Goal progress, improvement in exercise tolerance 12/29/19: Had been making gains but due to recent exacerbation with cellulitis, activity level very limited again, unable to tolerate MMT. LTG Duration 03/31/20 3 Impairment difficulty walking community distances Senior Living Goal (LTG) Patient able to consistently ambulate community distances wearing appropriate compression to bilateral LEs 09/30/19: no progress due to patient on hold due to Covid19 11/25/19:min improvement 12/29/19: Had been making improvements until recent cellulitis with lymphedema exacerbation, legs heavy, minimal ability to ambulate LTG Duration 03/31/20 2 Impairment pain bilateral LE's Senior Living Goal (LTG) Decrease pain to no greater than 3/10 with decrease in lymphedema. 09/30/19: no progress due to patient on hold due to Covid19 11/25/19: mild goal progress 12/29/19: again worsened due to recent cellulitis with increased pain LTG Duration 03/31/20 1 Impairment function-limiting lymphedema bilateral LE's Short Term Goal (STG) Educate patient in all aspects of lymphedema self-care including self-bandaging, skin care, self-MLD, exercise. 09/30/19: good goal progress 11/25/19: patient has now obtained Solaris ready-wrap compression alternatives with good tolerance, now able to be compliant with application of compression. Relies on children to help with application and with skin care due to obesity. 12/29/19: good goal progress with use of compression alternatives, though still awaiting delievery of appropriate size foot component right. STG Duration 01/28/20 Senior Living Goal (LTG) Decrease edema to stable level to allow patient to be able to be fit with appropriate compression for home management. Patient to be independent with all components of self-care to include skin care, self MLD, exercise, and compression use. 11/25/19: good goal progress, especially with use of Solaris Ready-wrap 12/29/19: good goal progress though with adjustments needing to be made due to recent exacerbation LTG Duration 03/31/20 Assessment Summary Assessment Minimal changes in LE circumference, patient continues on antibiotics and sees infectious disease specialist tomorrow. Patient had been making good progress toward all goals, but with recent cellulitis with exacerbation of lymphedema, status in all goals has declined with patient having difficulty functioning and self-managing. Physical Therapy Plan Frequency and Duration Frequency of Treatment 2x/wk Duration of Treatment 12 Plan of Care Start Date 12/29/19 Plan of Care End Date 03/31/20 Therapeutic Interventions Therapeutic Interventions Lymphedema Management,Self- Care/Home Management, Therapeutic Exercises Next Visit Focus/Plan Next Note Type Treatment Note Next Visit Plan continue lymphedema management pending any further recommendations from infectious disease specialist. Plan of Care Dates Plan of Care Start Date 12/29/19 Plan of Care End Date 03/31/20 Electronically Signed by: Julia Herrera, PT 01/01/20 0810 Please Sign and Return: I have reviewed this Plan of Care and certify that the skilled therapy services above are required to meet the patient?s needs. Physician Signature Date Printed Name and Credentials Clinical Instructor Signature Printed Name and Credentials
--- NOTE | 2019-12-29 16:26 | PT.OTN ---
Current Diagnoses Lymphedema, not elsewhere classified (12/29/19) Pain in right lower leg (12/29/19) Pain in left lower leg (12/29/19) Difficulty in walking, not elsewhere classified (12/29/19) Weakness (12/29/19) Physical Therapy Treatment Note PT-OP-A Visit Information Start: 07/03/19 10:30 Freq: Status: Active Protocol: Document 12/29/19 16:19 SAK (Rec: 12/29/19 16:26 [facility] [id number]) Out-Patient Physical Therapy Visit Information Visit Information Visit Type Treatment Note Visit Start Time 14:30 Visit Stop Time 16:05 Total Visit Minutes 95 Visit Number 19 Evaluation Information Evaluation Date 11/25/19 PT-OP-B Current Condition Start: 07/03/19 10:30 Freq: Status: Active Protocol: Document 07/03/19 10:36 SAK (Rec: 07/03/19 12:00 [facility] [id number]) Current Condition History of Current Condition Onset Date 1 1/2 years Current Complaints bilateral LE's History of Current Condition Prior to 1 1/2 years ago, legs would swell sometimes but it would go down, never stayed. Gradual worsening, swelling would stay longer periods of time, then got to the point didn't go away, just got worse and worse. States physician kept putting her on diuretics, not helpful. In ER in January for wound posterior right LE; continues with wound care department at [facility]. Has PE, on Warfarin. History of hernia surgery, appendix removal, 2 C sections , several ovarian cysts states noone wants to touch it. Right ovary removed due to a cyst. Compression stockings hard to get on and she states they don't seem to be helpful, not sure of compression level , doesn't have stockings with her this date. Very limited mobility, reports difficult to get to the bathroom at times. Prior Treatments and Tests diuretics compression stockings Treatment Goals Patient/Caregiver Goals Decrease swelling, be able to self-managel. Prior Functional Status Baseline Function- ADL's Independent Baseline Function- Mobility Independent Baseline Function- Gait independent no device Baseline Function- Recreation/Hobbies no limitations Current Functional Impairments (Reported) Functional Limitations- ADL's takes increased time Functional Limitations- Mobility/Gait decreased tolerance due to heaviness of her legs as well as pain Functional Limitations- Work/School unable Functional Limitations- Recreation/ limited to seated Hobbies Personal Factors Other Personal Factors That May Effect PMH: fibromyalgia Therapy/Recovery PT-OP-C Subjective Start: 07/03/19 10:30 Freq: Status: Active Protocol: Document 12/29/19 16:19 SAK (Rec: 12/29/19 16:26 [facility] [id number]) OP-PT Subjective Patient Comments Patient Comments States she had a rough weekend , is seeing infectious disease specialist tomorrow in [place]. Very painful and swollen. Just finished with wound care. PT-OP-E Functional Tests Start: 07/03/19 10:30 Freq: Status: Active Protocol: Document 07/03/19 10:36 SAK (Rec: 07/06/19 14:41 [facility] [id number]) Functional Tests 2 Minute Walk Test Distance 75 ft PT-OP-J Posture/Palpation/Skin Start: 07/03/19 10:30 Freq: Status: Active Protocol: Document 07/03/19 10:36 [facility] (Rec: 07/06/19 14:41 [facility] [id number]) Palpation Assessment Location bilateral LE Palpation Findings Edema,Soft Tissue Tightness Palpation Details Fibrosis bilateral distal LE's between knee and ankles, though difficult to fully assess due to Coban on right LE Skin Assessment Other Assessments Skin Assessment Comments Right LE covered with Coban from knee to foot by wound care, not removed this date Mild hemosideran staining noted on left lower leg. PT-OP-K Range of Motion Start: 07/03/19 10:30 Freq: Status: Active Protocol: Document 07/03/19 10:36 [facility] (Rec: 07/06/19 14:41 [facility] [id number]) Hip Goniometric Range of Motion Hip ernestine Hip ROM WFL Yes Knee Goniometric Range of Motion Knee ernestine Knee ROM WFL Yes Ankle and Foot Goniometric Range of Motion Ankle and Foot ernestine Ankle/Foot ROM WFL Yes PT-OP-M Strength Start: 07/03/19 10:30 Freq: Status: Active Protocol: Document 07/03/19 10:36 SAK (Rec: 07/06/19 14:41 [facility] [id number]) Hip Strength Hip Manual Muscle Testing ernestine Flexion (L2) 3- Fair- Extension (S1) 3- Fair- Abduction 3 Fair External Rotation 3+ Fair+ Internal Rotation 3+ Fair+ Knee Strength Knee Manual Muscle Testing ernestine Flexion (S2) 4- Good- Extension (L3) 4- Good- Ankle/Foot Strength Ankle and Foot Manual Muscle Testing ernestine Dorsiflexion (L4) 4 Good Plantarflexion (S1) 4 Good PT-OP-N Lymphedema Start: 07/03/19 10:30 Freq: Status: Active Protocol: Document 12/29/19 16:19 [facility] (Rec: 12/29/19 16:26 [facility] [id number]) Lymphedema Measurements Lower Extremity Circumference Measurements Left Affected MT Heads 24.5 cm Medial Malleolus 37.9 cm 10 cm From Medial Malleolus 45.7 cm 20 cm From Medial Malleolus 65 cm 30 cm From Medial Malleolus 73.4 cm 40 cm From Medial Malleolus 77.9 cm Right Affected MT Heads 27.7 cm Medial Malleolus 40.9 cm 10 cm From Medial Malleolus 56.4 cm 20 cm From Medial Malleolus 73.4 cm 30 cm From Medial Malleolus 81.5 cm 40 cm From Medial Malleolus 81 cm PT-OP-Q Treatments Start: 07/03/19 10:30 Freq: Status: Active Protocol: Document 12/29/19 16:19 [facility] (Rec: 12/29/19 16:26 [facility] [id number]) Cardio Equipment Recumbent Stepper (Sci-Fit) Other refused; too painful and fatigued today. Lymphedema Treatment Lymphedema Wrapping Body Location ernestine LE's Materials Right: Tricofix, toe wraps, Artiflex and Comprilan toes to knee due to increase in swelling Left: Tricofix, toe wraps, Tubigrip F to foot, Solaris Ready wrap toes to knee Sequential Lymphedema Exercises Location bilateral LE's Comments 10 reps ea Compression Garment Assessment Compression Garment Assessment Details has ordered vikram tights Other Other application of lotion bilateral LE's: Phytoplex for skin care PT-OP-R Modalities Start: 07/03/19 10:30 Freq: Status: Active Protocol: Document 11/10/19 16:32 SAK (Rec: 11/10/19 16:38 [facility] [id number]) Compression Pump Treatment Treatment Location Left Leg Pressure Amount (mmHg) (mmHG) 45 Inflation Time (Seconds) 10 Deflation Time (Seconds) 10 Treatment Duration (minutes) 30 Treatment Tolerance Good Treatment Comments patient right LE too large to fit even with licensed architect. Pump used during MLD to right LE. PT-OP-T Assessment and Plan Start: 07/03/19 10:30 Freq: Status: Active Protocol: Document 12/29/19 16:19 [facility] (Rec: 12/29/19 16:26 [facility] [id number]) Physical Therapy Assessment Other Concerns Barriers to Rehabilitation Low activity level Fibromyalgia, hernia, arthritis, asthma, obesity Goals 4 Impairment weakness bilateral LE's [place] Goal (LTG) Patient to demonstrate improvement in LE strength to at least 4/5 throughout 09/30/19: No progress due to Covid19 11/24/28: Goal progress, improvement in exercise tolerance LTG Duration 12/29/19 3 Impairment difficulty walking community distances [facility] Goal (LTG) Patient able to consistently ambulate community distances wearing appropriate compression to bilateral LEs 09/30/19: no progress due to patient on hold due to Covid19 11/25/19:min improvement LTG Duration 12/29/19 2 Impairment pain bilateral LE's [place] Goal (LTG) Decrease pain to no greater than 3/10 with decrease in lymphedema. 09/30/19: no progress due to patient on hold due to Covid19 11/25/19: mild goal progress LTG Duration 12/29/19 1 Impairment function-limiting lymphedema bilateral LE's Short Term Goal (STG) Educate patient in all aspects of lymphedema self-care including self-bandaging, skin care, self-MLD, exercise. 09/30/19: good goal progress 11/25/19: patient has now obtained Solaris ready-wrap compression alternatives with good tolerance, now able to be compliant with application of compression. Relies on children to help with application and with skin care due to obesity. [facility] Goal (LTG) Decrease edema to stable level to allow patient to be able to be fit with appropriate compression for home management. Patient to be independent with all components of self-care to include skin care, self MLD, exercise, and compression use. 11/25/19: good goal progress, especially with use of Solaris Ready-wrap LTG Duration 12/29/19 Assessment Summary Assessment Minimal changes in LE circumference, patient continues on antibiotics and sees infectious disease specialist tomorrow. Physical Therapy Plan Frequency and Duration Frequency of Treatment 2x/wk Duration of Treatment 12 Plan of Care Start Date 09/30/19 Plan of Care End Date 12/29/19 Therapeutic Interventions Therapeutic Interventions Lymphedema Management,Self- Care/Home Management, Therapeutic Exercises Next Visit Focus/Plan Next Note Type Treatment Note Next Visit Plan continue lymphedema management pending any further recommendations from infectious disease specialist.
--- NOTE | 2020-01-01 13:26 | PT.OTN ---
Current Diagnoses Lymphedema, not elsewhere classified (01/01/20) Pain in right lower leg (01/01/20) Pain in left lower leg (01/01/20) Difficulty in walking, not elsewhere classified (01/01/20) Weakness (01/01/20) Physical Therapy Treatment Note PT-OP-A Visit Information Start: 07/03/19 10:30 Freq: Status: Active Protocol: Document 01/01/20 13:10 SAK (Rec: 01/01/20 13:26 [facility] [id number]) Out-Patient Physical Therapy Visit Information Visit Information Visit Type Treatment Note Visit Start Time 11:15 Visit Stop Time 12:30 Total Visit Minutes 75 Visit Number 20 Evaluation Information Evaluation Date 11/25/19 PT-OP-B Current Condition Start: 07/03/19 10:30 Freq: Status: Active Protocol: Document 07/03/19 10:36 SAK (Rec: 07/03/19 12:00 [facility] [id number]) Current Condition History of Current Condition Onset Date 1 1/2 years Current Complaints bilateral LE's History of Current Condition Prior to 1 1/2 years ago, legs would swell sometimes but it would go down, never stayed. Gradual worsening, swelling would stay longer periods of time, then got to the point didn't go away, just got worse and worse. States physician kept putting her on diuretics, not helpful. In ER in January for wound posterior right LE; continues with wound care department at [facility]. Has PE, on Warfarin. History of hernia surgery, appendix removal, 2 C sections , several ovarian cysts states noone wants to touch it. Right ovary removed due to a cyst. Compression stockings hard to get on and she states they don't seem to be helpful, not sure of compression level , doesn't have stockings with her this date. Very limited mobility, reports difficult to get to the bathroom at times. Prior Treatments and Tests diuretics compression stockings Treatment Goals Patient/Caregiver Goals Decrease swelling, be able to self-managel. Prior Functional Status Baseline Function- ADL's Independent Baseline Function- Mobility Independent Baseline Function- Gait independent no device Baseline Function- Recreation/Hobbies no limitations Current Functional Impairments (Reported) Functional Limitations- ADL's takes increased time Functional Limitations- Mobility/Gait decreased tolerance due to heaviness of her legs as well as pain Functional Limitations- Work/School unable Functional Limitations- Recreation/ limited to seated Hobbies Personal Factors Other Personal Factors That May Effect PMH: fibromyalgia Therapy/Recovery PT-OP-C Subjective Start: 07/03/19 10:30 Freq: Status: Active Protocol: Document 01/01/20 13:10 [facility] (Rec: 01/01/20 13:26 [facility] [id number]) OP-PT Subjective Patient Comments Patient Comments Patient states she saw the infectious disease physician Dr. Montoya yesterday and felt good about the visit. Going to continue on current antibiotic for 2 weeks then follow up with him; he was indicating a need for long- term antibiotic possibly over the course of 1 year. No other recommendations for PT. Encouraged patient to continue with PT, compression, exercise,elevation. States she received the 5XL tights she ordered but they did not work for her. Will need to look at other options. PT-OP-E Functional Tests Start: 07/03/19 10:30 Freq: Status: Active Protocol: Document 07/03/19 10:36 [facility] (Rec: 07/06/19 14:41 [facility] [id number]) Functional Tests 2 Minute Walk Test Distance 75 ft PT-OP-J Posture/Palpation/Skin Start: 07/03/19 10:30 Freq: Status: Active Protocol: Document 07/03/19 10:36 [facility] (Rec: 07/06/19 14:41 [facility] [id number]) Palpation Assessment Location bilateral LE Palpation Findings Edema,Soft Tissue Tightness Palpation Details Fibrosis bilateral distal LE's between knee and ankles, though difficult to fully assess due to Coban on right LE Skin Assessment Other Assessments Skin Assessment Comments Right LE covered with Coban from knee to foot by wound care, not removed this date Mild hemosideran staining noted on left lower leg. PT-OP-K Range of Motion Start: 07/03/19 10:30 Freq: Status: Active Protocol: Document 07/03/19 10:36 [facility] (Rec: 07/06/19 14:41 [facility] [id number]) Hip Goniometric Range of Motion Hip erik Hip ROM WFL Yes Knee Goniometric Range of Motion Knee erik Knee ROM WFL Yes Ankle and Foot Goniometric Range of Motion Ankle and Foot erik Ankle/Foot ROM WFL Yes PT-OP-M Strength Start: 07/03/19 10:30 Freq: Status: Active Protocol: Document 07/03/19 10:36 [facility] (Rec: 07/06/19 14:41 [facility] [id number]) Hip Strength Hip Manual Muscle Testing erik Flexion (L2) 3- Fair- Extension (S1) 3- Fair- Abduction 3 Fair External Rotation 3+ Fair+ Internal Rotation 3+ Fair+ Knee Strength Knee Manual Muscle Testing erik Flexion (S2) 4- Good- Extension (L3) 4- Good- Ankle/Foot Strength Ankle and Foot Manual Muscle Testing erik Dorsiflexion (L4) 4 Good Plantarflexion (S1) 4 Good PT-OP-N Lymphedema Start: 07/03/19 10:30 Freq: Status: Active Protocol: Document 01/01/20 13:10 [facility] (Rec: 01/01/20 13:26 [facility] [id number]) Lymphedema Measurements Lower Extremity Circumference Measurements Left Affected MT Heads 24.7 cm Medial Malleolus 36.7 cm 10 cm From Medial Malleolus 45.4 cm 20 cm From Medial Malleolus 67 cm 30 cm From Medial Malleolus 75.7 cm 40 cm From Medial Malleolus 75.9 cm Right Affected MT Heads 28.1 cm Medial Malleolus 39.7 cm 10 cm From Medial Malleolus 55.7 cm 20 cm From Medial Malleolus 73 cm 30 cm From Medial Malleolus 83.9 cm 40 cm From Medial Malleolus 80.4 cm PT-OP-Q Treatments Start: 07/03/19 10:30 Freq: Status: Active Protocol: Document 01/01/20 13:10 [facility] (Rec: 01/01/20 13:26 [facility] [id number]) Cardio Equipment Recumbent Stepper (Sci-Fit) Duration (Minutes) 4 Resistance 1 Seat Position 13 Lymphedema Treatment Manual Lymphatic Drainage Location Erik LE's Lymphedema Wrapping Body Location erik LE's Materials Right: Tricofix, toe wraps, Artiflex and Comprilan toes to knee due to increase in swelling Left: Tricofix, toe wraps, Tubigrip F to foot, Solaris Ready wrap toes to knee Sequential Lymphedema Exercises Location bilateral LE's Comments 10 reps ea Compression Garment Assessment Compression Garment Assessment Details María tights did not work. Need to explore other options. May need to consider toe caps due to difficulty with reducing distal foot lymphedema Other Other application of lotion bilateral LE's: Phytoplex for skin care PT-OP-R Modalities Start: 07/03/19 10:30 Freq: Status: Active Protocol: Document 11/10/19 16:32 [facility] (Rec: 11/10/19 16:38 [facility] [id number]) Compression Pump Treatment Treatment Location Left Leg Pressure Amount (mmHg) (mmHG) 45 Inflation Time (Seconds) 10 Deflation Time (Seconds) 10 Treatment Duration (minutes) 30 Treatment Tolerance Good Treatment Comments patient right LE too large to fit even with honey grader and blender. Pump used during MLD to right LE. PT-OP-T Assessment and Plan Start: 07/03/19 10:30 Freq: Status: Active Protocol: Document 01/01/20 13:10 [facility] (Rec: 01/01/20 13:26 [facility] [id number]) Physical Therapy Assessment Other Concerns Barriers to Rehabilitation Low activity level Fibromyalgia, hernia, arthritis, asthma, obesity Goals 4 Impairment weakness bilateral LE's [employer] Goal (LTG) Patient to demonstrate improvement in LE strength to at least 4/5 throughout 09/30/19: No progress due to Covid19 11/24/28: Goal progress, improvement in exercise tolerance 12/29/19: Had been making gains but due to recent exacerbation with cellulitis, activity level very limited again, unable to tolerate MMT. LTG Duration 03/31/20 3 Impairment difficulty walking community distances [employer] Chair Goal (LTG) Patient able to consistently ambulate community distances wearing appropriate compression to bilateral LEs 09/30/19: no progress due to patient on hold due to Covid19 11/25/19:min improvement 12/29/19: Had been making improvements until recent cellulitis with lymphedema exacerbation, legs heavy, minimal ability to ambulate LTG Duration 03/31/20 2 Impairment pain bilateral LE's [facility] Goal (LTG) Decrease pain to no greater than 3/10 with decrease in lymphedema. 09/30/19: no progress due to patient on hold due to Covid19 11/25/19: mild goal progress 12/29/19: again worsened due to recent cellulitis with increased pain LTG Duration 03/31/20 1 Impairment function-limiting lymphedema bilateral LE's Short Term Goal (STG) Educate patient in all aspects of lymphedema self-care including self-bandaging, skin care, self-MLD, exercise. 09/30/19: good goal progress 11/25/19: patient has now obtained Solaris ready-wrap compression alternatives with good tolerance, now able to be compliant with application of compression. Relies on children to help with application and with skin care due to obesity. 12/29/19: good goal progress with use of compression alternatives, though still awaiting delievery of appropriate size foot component right. STG Duration 01/28/20 [employer] Chair Goal (LTG) Decrease edema to stable level to allow patient to be able to be fit with appropriate compression for home management. Patient to be independent with all components of self-care to include skin care, self MLD, exercise, and compression use. 11/25/19: good goal progress, especially with use of Solaris Ready-wrap 12/29/19: good goal progress though with adjustments needing to be made due to recent exacerbation LTG Duration 03/31/20 Assessment Summary Assessment Patient circumferential measurements with variable changes throughout her LE's. Decision to put left foot component of Solaris Ready wrap compression alternative on right foot due to greater need and inability to adequately use short stretch bandages to wrap right foot at home. Continues to await delivery of foot component for right. Physical Therapy Plan Frequency and Duration Frequency of Treatment 2x/wk Duration of Treatment 12 Plan of Care Start Date 12/29/19 Plan of Care End Date 03/31/20 Therapeutic Interventions Therapeutic Interventions Lymphedema Management,Self- Care/Home Management, Therapeutic Exercises Next Visit Focus/Plan Next Note Type Treatment Note Next Visit Plan Next PT visit, lymphedema specialist gone so PT will focus on ther ex to improve strength, mobility, activity and facilitate lymphatic flow. Patient to continue with self-management, wound care next week.
--- NOTE | 2020-01-07 12:20 | PT.OTN ---
Current Diagnoses Lymphedema, not elsewhere classified (01/07/20) Pain in right lower leg (01/07/20) Pain in left lower leg (01/07/20) Difficulty in walking, not elsewhere classified (01/07/20) Weakness (01/07/20) Physical Therapy Treatment Note PT-OP-A Visit Information Start: 07/03/19 10:30 Freq: Status: Active Protocol: Document 01/07/20 12:04 AW (Rec: 01/07/20 12:20 AW [id number]) Out-Patient Physical Therapy Visit Information Visit Information Visit Type Treatment Note Visit Note Pt seen for ther ex only today . No lymphedema treatment this session. Visit Start Time 09:00 Visit Stop Time 09:45 Total Visit Minutes 45 Visit Number 21 Evaluation Information Evaluation Date 11/25/19 PT-OP-B Current Condition Start: 07/03/19 10:30 Freq: Status: Active Protocol: Document 07/03/19 10:36 SAK (Rec: 07/03/19 12:00 SAK [id number]) Current Condition History of Current Condition Onset Date 1 1/2 years Current Complaints bilateral LE's History of Current Condition Prior to 1 1/2 years ago, legs would swell sometimes but it would go down, never stayed. Gradual worsening, swelling would stay longer periods of time, then got to the point didn't go away, just got worse and worse. States physician kept putting her on diuretics, not helpful. In ER in January for wound posterior right LE; continues with wound care department at [facility]. Has PE, on Warfarin. History of hernia surgery, appendix removal, 2 C sections , several ovarian cysts states noone wants to touch it. Right ovary removed due to a cyst. Compression stockings hard to get on and she states they don't seem to be helpful, not sure of compression level , doesn't have stockings with her this date. Very limited mobility, reports difficult to get to the bathroom at times. Prior Treatments and Tests diuretics compression stockings Treatment Goals Patient/Caregiver Goals Decrease swelling, be able to self-managel. Prior Functional Status Baseline Function- ADL's Independent Baseline Function- Mobility Independent Baseline Function- Gait independent no device Baseline Function- Recreation/Hobbies no limitations Current Functional Impairments (Reported) Functional Limitations- ADL's takes increased time Functional Limitations- Mobility/Gait decreased tolerance due to heaviness of her legs as well as pain Functional Limitations- Work/School unable Functional Limitations- Recreation/ limited to seated Hobbies Personal Factors Other Personal Factors That May Effect PMH: fibromyalgia Therapy/Recovery PT-OP-C Subjective Start: 07/03/19 10:30 Freq: Status: Active Protocol: Document 01/07/20 12:04 AW (Rec: 01/07/20 12:20 AW [id number]) OP-PT Subjective Patient Comments Patient Comments Pt states she has been sleeping poorly. With her bed broken, she has been sleeping upright in a chair and has difficulty getting comfortable . Her right shoulder continues to bother her. PT-OP-E Functional Tests Start: 07/03/19 10:30 Freq: Status: Active Protocol: Document 07/03/19 10:36 SAK (Rec: 07/06/19 14:41 SAK [id number]) Functional Tests 2 Minute Walk Test Distance 75 ft PT-OP-J Posture/Palpation/Skin Start: 07/03/19 10:30 Freq: Status: Active Protocol: Document 07/03/19 10:36 SAK (Rec: 07/06/19 14:41 SAK [id number]) Palpation Assessment Location bilateral LE Palpation Findings Edema,Soft Tissue Tightness Palpation Details Fibrosis bilateral distal LE's between knee and ankles, though difficult to fully assess due to Coban on right LE Skin Assessment Other Assessments Skin Assessment Comments Right LE covered with Coban from knee to foot by wound care, not removed this date Mild hemosideran staining noted on left lower leg. PT-OP-K Range of Motion Start: 07/03/19 10:30 Freq: Status: Active Protocol: Document 07/03/19 10:36 SAK (Rec: 07/06/19 14:41 SAK [id number]) Hip Goniometric Range of Motion Hip ernestine Hip ROM WFL Yes Knee Goniometric Range of Motion Knee ernestine Knee ROM WFL Yes Ankle and Foot Goniometric Range of Motion Ankle and Foot ernestine Ankle/Foot ROM WFL Yes PT-OP-M Strength Start: 07/03/19 10:30 Freq: Status: Active Protocol: Document 07/03/19 10:36 SAK (Rec: 07/06/19 14:41 SAK [id number]) Hip Strength Hip Manual Muscle Testing ernestine Flexion (L2) 3- Fair- Extension (S1) 3- Fair- Abduction 3 Fair External Rotation 3+ Fair+ Internal Rotation 3+ Fair+ Knee Strength Knee Manual Muscle Testing ernestine Flexion (S2) 4- Good- Extension (L3) 4- Good- Ankle/Foot Strength Ankle and Foot Manual Muscle Testing ernestine Dorsiflexion (L4) 4 Good Plantarflexion (S1) 4 Good PT-OP-N Lymphedema Start: 07/03/19 10:30 Freq: Status: Active Protocol: Document 01/01/20 13:10 SAK (Rec: 01/01/20 13:26 SAK [id number]) Lymphedema Measurements Lower Extremity Circumference Measurements Left Affected MT Heads 24.7 cm Medial Malleolus 36.7 cm 10 cm From Medial Malleolus 45.4 cm 20 cm From Medial Malleolus 67 cm 30 cm From Medial Malleolus 75.7 cm 40 cm From Medial Malleolus 75.9 cm Right Affected MT Heads 28.1 cm Medial Malleolus 39.7 cm 10 cm From Medial Malleolus 55.7 cm 20 cm From Medial Malleolus 73 cm 30 cm From Medial Malleolus 83.9 cm 40 cm From Medial Malleolus 80.4 cm PT-OP-Q Treatments Start: 07/03/19 10:30 Freq: Status: Active Protocol: Document 01/07/20 12:04 AW (Rec: 01/07/20 12:20 AW [id number]) Cardio Equipment Recumbent Stepper (Sci-Fit) Other unable to tolerate today Therapeutic Exercises Supine Exercises heel slides Supine Exercise Name heel slides Side bilateral Reps/Minutes 5 reps x 2 sets Comments PT assist for RLE hip abduction Supine Exercise Name hip abduction Side bilateral Reps/Minutes 6 reps x 2 sets Comments PT assist for RLE glute sets Supine Exercise Name glute sets Side bilateral Reps/Minutes 5 sec hold x 10; 2 sets quad sets Supine Exercise Name quad sets Side bilateral Reps/Minutes 5 sec hold x 10; 3 sets ankle inversion/eversion Supine Exercise Name ankle inversion/eversion Side bilateral Resistance manual Reps/Minutes 10 reps x 3 ankle pumps Supine Exercise Name ankle pumps Side bilateral Resistance manual Reps/Minutes 10 reps x 3 diaphragmatic breathing Supine Exercise Name diaphragmatic breathing Reps/Minutes 5 min total Comments cues for rate and depth Sitting Exercises trunk rotation Side bilateral Reps/Minutes 8 reps each direction Comments cues for deep breathing hip ab/ad Sitting Exercise Name adduction Side bilateral Resistance manual Reps/Minutes 10x PT-OP-R Modalities Start: 07/03/19 10:30 Freq: Status: Active Protocol: Document 11/10/19 16:32 SAK (Rec: 11/10/19 16:38 SAK [id number]) Compression Pump Treatment Treatment Location Left Leg Pressure Amount (mmHg) (mmHG) 45 Inflation Time (Seconds) 10 Deflation Time (Seconds) 10 Treatment Duration (minutes) 30 Treatment Tolerance Good Treatment Comments patient right LE too large to fit even with director audience marketing. Pump used during MLD to right LE. PT-OP-T Assessment and Plan Start: 07/03/19 10:30 Freq: Status: Active Protocol: Document 01/07/20 12:04 AW (Rec: 01/07/20 12:20 AW [id number]) Physical Therapy Assessment Other Concerns Barriers to Rehabilitation Low activity level Fibromyalgia, hernia, arthritis, asthma, obesity Goals 4 Impairment weakness bilateral LE's Long-Term Goal (LTG) Patient to demonstrate improvement in LE strength to at least 4/5 throughout 09/30/19: No progress due to Covid19 11/24/28: Goal progress, improvement in exercise tolerance 12/29/19: Had been making gains but due to recent exacerbation with cellulitis, activity level very limited again, unable to tolerate MMT. LTG Duration 03/31/20 3 Impairment difficulty walking community distances Long-Term Goal (LTG) Patient able to consistently ambulate community distances wearing appropriate compression to bilateral LEs 09/30/19: no progress due to patient on hold due to Covid19 11/25/19:min improvement 12/29/19: Had been making improvements until recent cellulitis with lymphedema exacerbation, legs heavy, minimal ability to ambulate LTG Duration 03/31/20 2 Impairment pain bilateral LE's Long-Term Goal (LTG) Decrease pain to no greater than 3/10 with decrease in lymphedema. 09/30/19: no progress due to patient on hold due to Covid19 11/25/19: mild goal progress 12/29/19: again worsened due to recent cellulitis with increased pain LTG Duration 03/31/20 1 Impairment function-limiting lymphedema bilateral LE's Short Term Goal (STG) Educate patient in all aspects of lymphedema self-care including self-bandaging, skin care, self-MLD, exercise. 09/30/19: good goal progress 11/25/19: patient has now obtained Solaris ready-wrap compression alternatives with good tolerance, now able to be compliant with application of compression. Relies on children to help with application and with skin care due to obesity. 12/29/19: good goal progress with use of compression alternatives, though still awaiting delievery of appropriate size foot component right. STG Duration 01/28/20 Investment Banking Manager Goal (LTG) Decrease edema to stable level to allow patient to be able to be fit with appropriate compression for home management. Patient to be independent with all components of self-care to include skin care, self MLD, exercise, and compression use. 11/25/19: good goal progress, especially with use of Solaris Ready-wrap 12/29/19: good goal progress though with adjustments needing to be made due to recent exacerbation LTG Duration 03/31/20 Assessment Summary Assessment Pt tolerated supine and seated ther ex with concurrent cold pack to right shoulder. Heavy focus today on diaphragmatic breathing as a stand alone exercise and throughout ther ex activities. Physical Therapy Plan Frequency and Duration Frequency of Treatment 2x/wk Duration of Treatment 12 Plan of Care Start Date 12/29/19 Plan of Care End Date 03/31/20 Therapeutic Interventions Therapeutic Interventions Lymphedema Management,Self- Care/Home Management, Therapeutic Exercises Next Visit Focus/Plan Next Note Type Treatment Note Next Visit Plan continue lymphedema management
--- NOTE | 2020-01-13 15:13 | PT.OTN ---
Current Diagnoses Lymphedema, not elsewhere classified (01/13/20) Pain in right lower leg (01/13/20) Pain in left lower leg (01/13/20) Difficulty in walking, not elsewhere classified (01/13/20) Weakness (01/13/20) Physical Therapy Treatment Note PT-OP-A Visit Information Start: 07/03/19 10:30 Freq: Status: Active Protocol: Document 01/13/20 15:07 SAK (Rec: 01/13/20 15:13 [facility] [id number]) Out-Patient Physical Therapy Visit Information Visit Information Visit Type Treatment Note Visit Start Time 10:30 Visit Stop Time 12:05 Total Visit Minutes 95 Visit Number 22 Evaluation Information Evaluation Date 11/25/19 PT-OP-B Current Condition Start: 07/03/19 10:30 Freq: Status: Active Protocol: Document 07/03/19 10:36 SAK (Rec: 07/03/19 12:00 SAK [id number]) Current Condition History of Current Condition Onset Date 1 1/2 years Current Complaints bilateral LE's History of Current Condition Prior to 1 1/2 years ago, legs would swell sometimes but it would go down, never stayed. Gradual worsening, swelling would stay longer periods of time, then got to the point didn't go away, just got worse and worse. States physician kept putting her on diuretics, not helpful. In ER in January for wound posterior right LE; continues with wound care department at [facility]. Has PE, on Warfarin. History of hernia surgery, appendix removal, 2 C sections , several ovarian cysts states noone wants to touch it. Right ovary removed due to a cyst. Compression stockings hard to get on and she states they don't seem to be helpful, not sure of compression level , doesn't have stockings with her this date. Very limited mobility, reports difficult to get to the bathroom at times. Prior Treatments and Tests diuretics compression stockings Treatment Goals Patient/Caregiver Goals Decrease swelling, be able to self-managel. Prior Functional Status Baseline Function- ADL's Independent Baseline Function- Mobility Independent Baseline Function- Gait independent no device Baseline Function- Recreation/Hobbies no limitations Current Functional Impairments (Reported) Functional Limitations- ADL's takes increased time Functional Limitations- Mobility/Gait decreased tolerance due to heaviness of her legs as well as pain Functional Limitations- Work/School unable Functional Limitations- Recreation/ limited to seated Hobbies Personal Factors Other Personal Factors That May Effect PMH: fibromyalgia Therapy/Recovery PT-OP-C Subjective Start: 07/03/19 10:30 Freq: Status: Active Protocol: Document 01/13/20 15:07 [facility] (Rec: 01/13/20 15:13 [facility] [id number]) OP-PT Subjective Patient Comments Patient Comments Patient reports she sees infectious disease specialist tomorrow in [place]. States her swelling is worse, has still gotten foot component of her compression wrap for right foot. C/o increased swelling, has developed another wound on her right leg . Hopeful infectious disease specialist will be helpful. States PT session with exercise only very difficulty for her last session, did not tolerate well. c/o increased pain. PT-OP-E Functional Tests Start: 07/03/19 10:30 Freq: Status: Active Protocol: Document 07/03/19 10:36 [facility] (Rec: 07/06/19 14:41 [facility] [id number]) Functional Tests 2 Minute Walk Test Distance 75 ft PT-OP-J Posture/Palpation/Skin Start: 07/03/19 10:30 Freq: Status: Active Protocol: Document 07/03/19 10:36 [facility] (Rec: 07/06/19 14:41 [facility] [id number]) Palpation Assessment Location bilateral LE Palpation Findings Edema,Soft Tissue Tightness Palpation Details Fibrosis bilateral distal LE's between knee and ankles, though difficult to fully assess due to Coban on right LE Skin Assessment Other Assessments Skin Assessment Comments Right LE covered with Coban from knee to foot by wound care, not removed this date Mild hemosideran staining noted on left lower leg. PT-OP-K Range of Motion Start: 07/03/19 10:30 Freq: Status: Active Protocol: Document 07/03/19 10:36 [facility] (Rec: 07/06/19 14:41 [facility] [id number]) Hip Goniometric Range of Motion Hip ernestine Hip ROM WFL Yes Knee Goniometric Range of Motion Knee ernestine Knee ROM WFL Yes Ankle and Foot Goniometric Range of Motion Ankle and Foot ernestine Ankle/Foot ROM WFL Yes PT-OP-M Strength Start: 07/03/19 10:30 Freq: Status: Active Protocol: Document 07/03/19 10:36 [facility] (Rec: 07/06/19 14:41 [facility] [id number]) Hip Strength Hip Manual Muscle Testing ernestine Flexion (L2) 3- Fair- Extension (S1) 3- Fair- Abduction 3 Fair External Rotation 3+ Fair+ Internal Rotation 3+ Fair+ Knee Strength Knee Manual Muscle Testing ernestine Flexion (S2) 4- Good- Extension (L3) 4- Good- Ankle/Foot Strength Ankle and Foot Manual Muscle Testing ernestine Dorsiflexion (L4) 4 Good Plantarflexion (S1) 4 Good PT-OP-N Lymphedema Start: 07/03/19 10:30 Freq: Status: Active Protocol: Document 01/01/20 13:10 [facility] (Rec: 01/01/20 13:26 [facility] [id number]) Lymphedema Measurements Lower Extremity Circumference Measurements Left Affected MT Heads 24.7 cm Medial Malleolus 36.7 cm 10 cm From Medial Malleolus 45.4 cm 20 cm From Medial Malleolus 67 cm 30 cm From Medial Malleolus 75.7 cm 40 cm From Medial Malleolus 75.9 cm Right Affected MT Heads 28.1 cm Medial Malleolus 39.7 cm 10 cm From Medial Malleolus 55.7 cm 20 cm From Medial Malleolus 73 cm 30 cm From Medial Malleolus 83.9 cm 40 cm From Medial Malleolus 80.4 cm PT-OP-Q Treatments Start: 07/03/19 10:30 Freq: Status: Active Protocol: Document 01/13/20 15:07 [facility] (Rec: 01/13/20 15:13 [facility] [id number]) Cardio Equipment Recumbent Stepper (Sci-Fit) Duration (Minutes) 4 Resistance 1 Seat Position 13 PT-OP-R Modalities Start: 07/03/19 10:30 Freq: Status: Active Protocol: Document 11/10/19 16:32 [facility] (Rec: 11/10/19 16:38 [facility] [id number]) Compression Pump Treatment Treatment Location Left Leg Pressure Amount (mmHg) (mmHG) 45 Inflation Time (Seconds) 10 Deflation Time (Seconds) 10 Treatment Duration (minutes) 30 Treatment Tolerance Good Treatment Comments patient right LE too large to fit even with insurance sales executive. Pump used during MLD to right LE. PT-OP-T Assessment and Plan Start: 07/03/19 10:30 Freq: Status: Active Protocol: Document 01/13/20 15:07 [facility] (Rec: 01/13/20 15:13 [facility] [id number]) Physical Therapy Assessment Other Concerns Barriers to Rehabilitation Low activity level Fibromyalgia, hernia, arthritis, asthma, obesity Goals 4 Impairment weakness bilateral LE's Halfway Goal (LTG) Patient to demonstrate improvement in LE strength to at least 4/5 throughout 09/30/19: No progress due to Covid19 11/24/28: Goal progress, improvement in exercise tolerance 12/29/19: Had been making gains but due to recent exacerbation with cellulitis, activity level very limited again, unable to tolerate MMT. LTG Duration 03/31/20 3 Impairment difficulty walking community distances Tooth Inspector Goal (LTG) Patient able to consistently ambulate community distances wearing appropriate compression to bilateral LEs 09/30/19: no progress due to patient on hold due to Covid19 11/25/19:min improvement 12/29/19: Had been making improvements until recent cellulitis with lymphedema exacerbation, legs heavy, minimal ability to ambulate LTG Duration 03/31/20 2 Impairment pain bilateral LE's Tooth Inspector Goal (LTG) Decrease pain to no greater than 3/10 with decrease in lymphedema. 09/30/19: no progress due to patient on hold due to Covid19 11/25/19: mild goal progress 12/29/19: again worsened due to recent cellulitis with increased pain LTG Duration 03/31/20 1 Impairment function-limiting lymphedema bilateral LE's Short Term Goal (STG) Educate patient in all aspects of lymphedema self-care including self-bandaging, skin care, self-MLD, exercise. 09/30/19: good goal progress 11/25/19: patient has now obtained Solaris ready-wrap compression alternatives with good tolerance, now able to be compliant with application of compression. Relies on children to help with application and with skin care due to obesity. 12/29/19: good goal progress with use of compression alternatives, though still awaiting delievery of appropriate size foot component right. STG Duration 01/28/20 Halfway Goal (LTG) Decrease edema to stable level to allow patient to be able to be fit with appropriate compression for home management. Patient to be independent with all components of self-care to include skin care, self MLD, exercise, and compression use. 11/25/19: good goal progress, especially with use of Solaris Ready-wrap 12/29/19: good goal progress though with adjustments needing to be made due to recent exacerbation LTG Duration 03/31/20 Physical Therapy Plan Frequency and Duration Frequency of Treatment 2x/wk Duration of Treatment 12 Plan of Care Start Date 12/29/19 Plan of Care End Date 03/31/20 Therapeutic Interventions Therapeutic Interventions Lymphedema Management,Self- Care/Home Management, Therapeutic Exercises Next Visit Focus/Plan Next Note Type Treatment Note Next Visit Plan continue lymphedema management pending any further recommendations from infectious disease specialist.
--- NOTE | 2020-01-15 13:26 | PT.OTN ---
Current Diagnoses Lymphedema, not elsewhere classified (01/15/20) Pain in right lower leg (01/15/20) Pain in left lower leg (01/15/20) Difficulty in walking, not elsewhere classified (01/15/20) Weakness (01/15/20) Physical Therapy Treatment Note PT-OP-A Visit Information Start: 07/03/19 10:30 Freq: Status: Active Protocol: Document 01/15/20 10:31 SAK (Rec: 01/15/20 10:48 SAK [id number]) Out-Patient Physical Therapy Visit Information Visit Information Visit Type Treatment Note Visit Start Time 10:30 Visit Stop Time 12:00 Total Visit Minutes 90 Visit Number 22 Evaluation Information Evaluation Date 11/25/19 PT-OP-B Current Condition Start: 07/03/19 10:30 Freq: Status: Active Protocol: Document 07/03/19 10:36 SAK (Rec: 07/03/19 12:00 SAK [id number]) Current Condition History of Current Condition Onset Date 1 1/2 years Current Complaints bilateral LE's History of Current Condition Prior to 1 1/2 years ago, legs would swell sometimes but it would go down, never stayed. Gradual worsening, swelling would stay longer periods of time, then got to the point didn't go away, just got worse and worse. States physician kept putting her on diuretics, not helpful. In ER in January for wound posterior right LE; continues with wound care department at [facility]. Has PE, on Warfarin. History of hernia surgery, appendix removal, 2 C sections , several ovarian cysts states noone wants to touch it. Right ovary removed due to a cyst. Compression stockings hard to get on and she states they don't seem to be helpful, not sure of compression level , doesn't have stockings with her this date. Very limited mobility, reports difficult to get to the bathroom at times. Prior Treatments and Tests diuretics compression stockings Treatment Goals Patient/Caregiver Goals Decrease swelling, be able to self-managel. Prior Functional Status Baseline Function- ADL's Independent Baseline Function- Mobility Independent Baseline Function- Gait independent no device Baseline Function- Recreation/Hobbies no limitations Current Functional Impairments (Reported) Functional Limitations- ADL's takes increased time Functional Limitations- Mobility/Gait decreased tolerance due to heaviness of her legs as well as pain Functional Limitations- Work/School unable Functional Limitations- Recreation/ limited to seated Hobbies Personal Factors Other Personal Factors That May Effect PMH: fibromyalgia Therapy/Recovery PT-OP-C Subjective Start: 07/03/19 10:30 Freq: Status: Active Protocol: Document 01/15/20 10:31 SAK (Rec: 01/15/20 10:48 SAK [id number]) OP-PT Subjective Patient Comments Patient Comments Infectious disease specialist going to put her on a different antibiotic, hasn't been able to start yet. New bed doesn't come until 01/20/20 so continues to not be able to elevate her legs. Goes back to infectious disease doctor 03/01/20. I feel broken, has had 4 medical appointments in 4 days. Had to take 2 pain meds yesterday. PT-OP-E Functional Tests Start: 07/03/19 10:30 Freq: Status: Active Protocol: Document 07/03/19 10:36 SAK (Rec: 07/06/19 14:41 SAK [id number]) Functional Tests 2 Minute Walk Test Distance 75 ft PT-OP-J Posture/Palpation/Skin Start: 07/03/19 10:30 Freq: Status: Active Protocol: Document 07/03/19 10:36 SAK (Rec: 07/06/19 14:41 SAK [id number]) Palpation Assessment Location bilateral LE Palpation Findings Edema,Soft Tissue Tightness Palpation Details Fibrosis bilateral distal LE's between knee and ankles, though difficult to fully assess due to Coban on right LE Skin Assessment Other Assessments Skin Assessment Comments Right LE covered with Coban from knee to foot by wound care, not removed this date Mild hemosideran staining noted on left lower leg. PT-OP-K Range of Motion Start: 07/03/19 10:30 Freq: Status: Active Protocol: Document 07/03/19 10:36 SAK (Rec: 07/06/19 14:41 SAK [id number]) Hip Goniometric Range of Motion Hip erik Hip ROM WFL Yes Knee Goniometric Range of Motion Knee erik Knee ROM WFL Yes Ankle and Foot Goniometric Range of Motion Ankle and Foot erik Ankle/Foot ROM WFL Yes PT-OP-M Strength Start: 07/03/19 10:30 Freq: Status: Active Protocol: Document 07/03/19 10:36 SAK (Rec: 07/06/19 14:41 SAK [id number]) Hip Strength Hip Manual Muscle Testing erik Flexion (L2) 3- Fair- Extension (S1) 3- Fair- Abduction 3 Fair External Rotation 3+ Fair+ Internal Rotation 3+ Fair+ Knee Strength Knee Manual Muscle Testing erik Flexion (S2) 4- Good- Extension (L3) 4- Good- Ankle/Foot Strength Ankle and Foot Manual Muscle Testing erik Dorsiflexion (L4) 4 Good Plantarflexion (S1) 4 Good PT-OP-N Lymphedema Start: 07/03/19 10:30 Freq: Status: Active Protocol: Document 01/15/20 10:31 [facility] (Rec: 01/15/20 13:21 [facility] [id number]) Lymphedema Measurements Comments Lymphedema Comments no measurements today as patient has not obtained new bed and bed frame yet, not able to elevate legs, does not appear to be any significant change PT-OP-Q Treatments Start: 07/03/19 10:30 Freq: Status: Active Protocol: Document 01/15/20 10:31 [facility] (Rec: 01/15/20 13:25 [facility] [id number]) Cardio Equipment Recumbent Stepper (Sci-Fit) Duration (Minutes) 3 Resistance 1 Seat Position 13 Lymphedema Treatment Manual Lymphatic Drainage Location Erik LE's Lymphedema Wrapping Body Location erik LE's PT-OP-R Modalities Start: 07/03/19 10:30 Freq: Status: Active Protocol: Document 11/10/19 16:32 [facility] (Rec: 11/10/19 16:38 [facility] [id number]) Compression Pump Treatment Treatment Location Left Leg Pressure Amount (mmHg) (mmHG) 45 Inflation Time (Seconds) 10 Deflation Time (Seconds) 10 Treatment Duration (minutes) 30 Treatment Tolerance Good Treatment Comments patient right LE too large to fit even with bean weigher. Pump used during MLD to right LE. PT-OP-T Assessment and Plan Start: 07/03/19 10:30 Freq: Status: Active Protocol: Document 01/15/20 10:31 [facility] (Rec: 01/15/20 10:48 [facility] [id number]) Physical Therapy Assessment Goals 4 Impairment weakness bilateral LE's Half-Way Goal (LTG) Patient to demonstrate improvement in LE strength to at least 4/5 throughout 09/30/19: No progress due to Covid19 7/28/29: Goal progress, improvement in exercise tolerance 12/29/19: Had been making gains but due to recent exacerbation with cellulitis, activity level very limited again, unable to tolerate MMT. LTG Duration 03/31/20 3 Impairment difficulty walking community distances [employer] Operator Goal (LTG) Patient able to consistently ambulate community distances wearing appropriate compression to bilateral LEs 09/30/19: no progress due to patient on hold due to Covid19 11/25/19:min improvement 12/29/19: Had been making improvements until recent cellulitis with lymphedema exacerbation, legs heavy, minimal ability to ambulate LTG Duration 03/31/20 2 Impairment pain bilateral LE's Half-Way Goal (LTG) Decrease pain to no greater than 3/10 with decrease in lymphedema. 09/30/19: no progress due to patient on hold due to Covid19 11/25/19: mild goal progress 12/29/19: again worsened due to recent cellulitis with increased pain LTG Duration 03/31/20 1 Impairment function-limiting lymphedema bilateral LE's Short Term Goal (STG) Educate patient in all aspects of lymphedema self-care including self-bandaging, skin care, self-MLD, exercise. 09/30/19: good goal progress 11/25/19: patient has now obtained Solaris ready-wrap compression alternatives with good tolerance, now able to be compliant with application of compression. Relies on children to help with application and with skin care due to obesity. 12/29/19: good goal progress with use of compression alternatives, though still awaiting delievery of appropriate size foot component right. STG Duration 01/28/20 Half-Way Goal (LTG) Decrease edema to stable level to allow patient to be able to be fit with appropriate compression for home management. Patient to be independent with all components of self-care to include skin care, self MLD, exercise, and compression use. 11/25/19: good goal progress, especially with use of Solaris Ready-wrap 12/29/19: good goal progress though with adjustments needing to be made due to recent exacerbation LTG Duration 03/31/20 Physical Therapy Plan Frequency and Duration Frequency of Treatment 2x/wk Duration of Treatment 12 Plan of Care Start Date 12/29/19 Plan of Care End Date 03/31/20 Therapeutic Interventions Therapeutic Interventions Lymphedema Management,Manual Therapy,Patient/Caregiver Education,Self-Care/Home Management,Soft Tissue Mobilization,Therapeutic Exercises
--- NOTE | 2020-01-20 16:11 | PT.OTN ---
Current Diagnoses Lymphedema, not elsewhere classified (01/20/20) Pain in right lower leg (01/20/20) Pain in left lower leg (01/20/20) Difficulty in walking, not elsewhere classified (01/20/20) Weakness (01/20/20) Physical Therapy Treatment Note PT-OP-A Visit Information Start: 07/03/19 10:30 Freq: Status: Active Protocol: Document 01/20/20 15:52 SAK (Rec: 01/20/20 16:10 [facility] [id number]) Out-Patient Physical Therapy Visit Information Visit Information Visit Type Treatment Note Visit Start Time 10:30 Visit Stop Time 12:02 Total Visit Minutes 92 Visit Number 24 Evaluation Information Evaluation Date 11/25/19 PT-OP-B Current Condition Start: 07/03/19 10:30 Freq: Status: Active Protocol: Document 07/03/19 10:36 SAK (Rec: 07/03/19 12:00 [facility] [id number]) Current Condition History of Current Condition Onset Date 1 1/2 years Current Complaints bilateral LE's History of Current Condition Prior to 1 1/2 years ago, legs would swell sometimes but it would go down, never stayed. Gradual worsening, swelling would stay longer periods of time, then got to the point didn't go away, just got worse and worse. States physician kept putting her on diuretics, not helpful. In ER in January for wound posterior right LE; continues with wound care department at [facility]. Has PE, on Warfarin. History of hernia surgery, appendix removal, 2 C sections , several ovarian cysts states noone wants to touch it. Right ovary removed due to a cyst. Compression stockings hard to get on and she states they don't seem to be helpful, not sure of compression level , doesn't have stockings with her this date. Very limited mobility, reports difficult to get to the bathroom at times. Prior Treatments and Tests diuretics compression stockings Treatment Goals Patient/Caregiver Goals Decrease swelling, be able to self-managel. Prior Functional Status Baseline Function- ADL's Independent Baseline Function- Mobility Independent Baseline Function- Gait independent no device Baseline Function- Recreation/Hobbies no limitations Current Functional Impairments (Reported) Functional Limitations- ADL's takes increased time Functional Limitations- Mobility/Gait decreased tolerance due to heaviness of her legs as well as pain Functional Limitations- Work/School unable Functional Limitations- Recreation/ limited to seated Hobbies Personal Factors Other Personal Factors That May Effect PMH: fibromyalgia Therapy/Recovery PT-OP-C Subjective Start: 07/03/19 10:30 Freq: Status: Active Protocol: Document 01/20/20 15:52 SAK (Rec: 01/20/20 16:10 [facility] [id number]) OP-PT Subjective Patient Comments Patient Comments Patient reports bedframe being put up tonight, finally received foot component of ready wrap. Feels swelling keeps getting worse as she is constantly sitting, unable to fully lay down, has been sleeping on love seat which is too small. Having a hard time walking today. PT-OP-E Functional Tests Start: 07/03/19 10:30 Freq: Status: Active Protocol: Document 07/03/19 10:36 [facility] (Rec: 07/06/19 14:41 [facility] [id number]) Functional Tests 2 Minute Walk Test Distance 75 ft PT-OP-J Posture/Palpation/Skin Start: 07/03/19 10:30 Freq: Status: Active Protocol: Document 07/03/19 10:36 [facility] (Rec: 07/06/19 14:41 [facility] [id number]) Palpation Assessment Location bilateral LE Palpation Findings Edema,Soft Tissue Tightness Palpation Details Fibrosis bilateral distal LE's between knee and ankles, though difficult to fully assess due to Coban on right LE Skin Assessment Other Assessments Skin Assessment Comments Right LE covered with Coban from knee to foot by wound care, not removed this date Mild hemosideran staining noted on left lower leg. PT-OP-K Range of Motion Start: 07/03/19 10:30 Freq: Status: Active Protocol: Document 07/03/19 10:36 [facility] (Rec: 07/06/19 14:41 [facility] [id number]) Hip Goniometric Range of Motion Hip erik Hip ROM WFL Yes Knee Goniometric Range of Motion Knee erik Knee ROM WFL Yes Ankle and Foot Goniometric Range of Motion Ankle and Foot erik Ankle/Foot ROM WFL Yes PT-OP-M Strength Start: 07/03/19 10:30 Freq: Status: Active Protocol: Document 07/03/19 10:36 [facility] (Rec: 07/06/19 14:41 [facility] [id number]) Hip Strength Hip Manual Muscle Testing erik Flexion (L2) 3- Fair- Extension (S1) 3- Fair- Abduction 3 Fair External Rotation 3+ Fair+ Internal Rotation 3+ Fair+ Knee Strength Knee Manual Muscle Testing erik Flexion (S2) 4- Good- Extension (L3) 4- Good- Ankle/Foot Strength Ankle and Foot Manual Muscle Testing erik Dorsiflexion (L4) 4 Good Plantarflexion (S1) 4 Good PT-OP-N Lymphedema Start: 07/03/19 10:30 Freq: Status: Active Protocol: Document 01/20/20 15:52 [facility] (Rec: 01/20/20 16:10 [facility] [id number]) Lymphedema Measurements Lower Extremity Circumference Measurements Left Affected MT Heads 27.7 cm Medial Malleolus 38.2 cm 10 cm From Medial Malleolus 45.1 cm 20 cm From Medial Malleolus 67.9 cm 30 cm From Medial Malleolus 74.9 cm 40 cm From Medial Malleolus 81.6 cm Right Affected MT Heads 26.3 cm Medial Malleolus 38.3 cm 10 cm From Medial Malleolus 58.4 cm 20 cm From Medial Malleolus 76.3 cm 30 cm From Medial Malleolus 85.9 cm 40 cm From Medial Malleolus 80.9 cm Comments Lymphedema Comments Increase in edema except for reduction right foot due to wearing ready-wrap. PT-OP-Q Treatments Start: 07/03/19 10:30 Freq: Status: Active Protocol: Document 01/20/20 15:52 [facility] (Rec: 01/20/20 16:10 [facility] [id number]) Cardio Equipment Recumbent Stepper (Sci-Fit) Other unable Lymphedema Treatment Manual Lymphatic Drainage Location Erik LE's Lymphedema Wrapping Body Location erik LE's Materials Erik: Size F Tubigrip toes to ankle, Size K ankle to knee, bilateral foot and lower leg ready wraps Sequential Lymphedema Exercises Location bilateral LE's Comments 10 reps ea Compression Garment Assessment Compression Garment Assessment Details States she has some stretchy jeans she previously wore, she will try as we further research other options for upper leg and abdominal compression to facilitate lymphatic flow. Ready-wrap fit to left foot ( too small for right) Other Other application of lotion bilateral LE's: Phytoplex for skin care PT-OP-R Modalities Start: 07/03/19 10:30 Freq: Status: Active Protocol: Document 11/10/19 16:32 [facility] (Rec: 11/10/19 16:38 [facility] [id number]) Compression Pump Treatment Treatment Location Left Leg Pressure Amount (mmHg) (mmHG) 45 Inflation Time (Seconds) 10 Deflation Time (Seconds) 10 Treatment Duration (minutes) 30 Treatment Tolerance Good Treatment Comments patient right LE too large to fit even with senior it architect. Pump used during MLD to right LE. PT-OP-T Assessment and Plan Start: 07/03/19 10:30 Freq: Status: Active Protocol: Document 01/20/20 15:52 [facility] (Rec: 01/20/20 16:10 [facility] [id number]) Physical Therapy Assessment Other Concerns Barriers to Rehabilitation Low activity level Fibromyalgia, hernia, arthritis, asthma, obesity Goals 4 Impairment weakness bilateral LE's Usp Goal (LTG) Patient to demonstrate improvement in LE strength to at least 4/5 throughout 09/30/19: No progress due to Covid19 11/24/28: Goal progress, improvement in exercise tolerance 12/29/19: Had been making gains but due to recent exacerbation with cellulitis, activity level very limited again, unable to tolerate MMT. LTG Duration 03/31/20 3 Impairment difficulty walking community distances Cell Stripper Final Goal (LTG) Patient able to consistently ambulate community distances wearing appropriate compression to bilateral LEs 09/30/19: no progress due to patient on hold due to Covid19 11/25/19:min improvement 12/29/19: Had been making improvements until recent cellulitis with lymphedema exacerbation, legs heavy, minimal ability to ambulate LTG Duration 03/31/20 2 Impairment pain bilateral LE's Cell Stripper Final Goal (LTG) Decrease pain to no greater than 3/10 with decrease in lymphedema. 09/30/19: no progress due to patient on hold due to Covid19 11/25/19: mild goal progress 12/29/19: again worsened due to recent cellulitis with increased pain LTG Duration 03/31/20 1 Impairment function-limiting lymphedema bilateral LE's Short Term Goal (STG) Educate patient in all aspects of lymphedema self-care including self-bandaging, skin care, self-MLD, exercise. 09/30/19: good goal progress 11/25/19: patient has now obtained Solaris ready-wrap compression alternatives with good tolerance, now able to be compliant with application of compression. Relies on children to help with application and with skin care due to obesity. 12/29/19: good goal progress with use of compression alternatives, though still awaiting delievery of appropriate size foot component right. STG Duration 01/28/20 Cell Stripper Final Goal (LTG) Decrease edema to stable level to allow patient to be able to be fit with appropriate compression for home management. Patient to be independent with all components of self-care to include skin care, self MLD, exercise, and compression use. 11/25/19: good goal progress, especially with use of Solaris Ready-wrap 12/29/19: good goal progress though with adjustments needing to be made due to recent exacerbation LTG Duration 03/31/20 Assessment Summary Assessment Worsened lymphedema bilateral LE's except for right foot reduction due to wearing ready -wrap foot component. Feel increase in lymphedema due to LE's in constant dependent position past few weeks. Patient will be able to sleep in her bed tonight. Also has received 2nd ready wrap for foot, so has full set bilaterally which should help. She has not yet been able to use compression on upper legs , has previously refused to be wrapped, but verbalized being open to this today. Postponed due to patient reporting previously able to wear stretchy jeans and found them helpful and easier to don and doff, didn't slide down as with wraps. Will continue to try to find upper leg compression alternative including potentially bike shorts. Physical Therapy Plan Frequency and Duration Frequency of Treatment 2x/wk Duration of Treatment 12 Plan of Care Start Date 12/29/19 Plan of Care End Date 03/31/20 Therapeutic Interventions Therapeutic Interventions Lymphedema Management,Manual Therapy,Patient/Caregiver Education,Self-Care/Home Management,Soft Tissue Mobilization,Therapeutic Exercises Next Visit Focus/Plan Next Note Type Treatment Note Next Visit Plan Circumferential measurements, assure good fit of ready wraps , continue complete decongestive therapy for lymphedema, evaluate response to use of jeans for upper leg compression and explore other options including wrapping.
--- NOTE | 2020-01-27 16:40 | PT.OTN ---
Current Diagnoses Lymphedema, not elsewhere classified (01/27/20) Pain in right lower leg (01/27/20) Pain in left lower leg (01/27/20) Difficulty in walking, not elsewhere classified (01/27/20) Weakness (01/27/20) Physical Therapy Treatment Note PT-OP-A Visit Information Start: 07/03/19 10:30 Freq: Status: Active Protocol: Document 01/27/20 10:31 SAK (Rec: 01/27/20 10:34 SAK [id number]) Out-Patient Physical Therapy Visit Information Visit Information Visit Type Treatment Note Visit Start Time 10:30 Visit Stop Time 12:02 Total Visit Minutes 92 Visit Number 25 Evaluation Information Evaluation Date 11/25/19 PT-OP-B Current Condition Start: 07/03/19 10:30 Freq: Status: Active Protocol: Document 07/03/19 10:36 SAK (Rec: 07/03/19 12:00 SAK [id number]) Current Condition History of Current Condition Onset Date 1 1/2 years Current Complaints bilateral LE's History of Current Condition Prior to 1 1/2 years ago, legs would swell sometimes but it would go down, never stayed. Gradual worsening, swelling would stay longer periods of time, then got to the point didn't go away, just got worse and worse. States physician kept putting her on diuretics, not helpful. In ER in January for wound posterior right LE; continues with wound care department at [facility]. Has PE, on Warfarin. History of hernia surgery, appendix removal, 2 C sections , several ovarian cysts states noone wants to touch it. Right ovary removed due to a cyst. Compression stockings hard to get on and she states they don't seem to be helpful, not sure of compression level , doesn't have stockings with her this date. Very limited mobility, reports difficult to get to the bathroom at times. Prior Treatments and Tests diuretics compression stockings Treatment Goals Patient/Caregiver Goals Decrease swelling, be able to self-managel. Prior Functional Status Baseline Function- ADL's Independent Baseline Function- Mobility Independent Baseline Function- Gait independent no device Baseline Function- Recreation/Hobbies no limitations Current Functional Impairments (Reported) Functional Limitations- ADL's takes increased time Functional Limitations- Mobility/Gait decreased tolerance due to heaviness of her legs as well as pain Functional Limitations- Work/School unable Functional Limitations- Recreation/ limited to seated Hobbies Personal Factors Other Personal Factors That May Effect PMH: fibromyalgia Therapy/Recovery PT-OP-C Subjective Start: 07/03/19 10:30 Freq: Status: Active Protocol: Document 01/27/20 10:31 SAK (Rec: 01/27/20 10:34 SAK [id number]) OP-PT Subjective Patient Comments Patient Comments Sees infectious disease specialist 01/30/20, wound care next 02/02/20. Doesn't feel wound healing. Did get bed frame, getting new mattress ; feels swelling maybe a little better, legs a little squishy. New foot wrap needs adjusting. Agreeable to try Coban on toes today. Hasn't gotten in touch with Hellen at [facility] or found any other tights on her own for compression of thighs due to pocketing of lymphedema now in her thighs due to her prior refusal to be wrapped. Now open to trial of wrapping one leg today. PT-OP-E Functional Tests Start: 07/03/19 10:30 Freq: Status: Active Protocol: Document 07/03/19 10:36 [facility] (Rec: 07/06/19 14:41 [facility] [id number]) Functional Tests 2 Minute Walk Test Distance 75 ft PT-OP-J Posture/Palpation/Skin Start: 07/03/19 10:30 Freq: Status: Active Protocol: Document 07/03/19 10:36 [facility] (Rec: 07/06/19 14:41 [facility] [id number]) Palpation Assessment Location bilateral LE Palpation Findings Edema,Soft Tissue Tightness Palpation Details Fibrosis bilateral distal LE's between knee and ankles, though difficult to fully assess due to Coban on right LE Skin Assessment Other Assessments Skin Assessment Comments Right LE covered with Coban from knee to foot by wound care, not removed this date Mild hemosideran staining noted on left lower leg. PT-OP-K Range of Motion Start: 07/03/19 10:30 Freq: Status: Active Protocol: Document 07/03/19 10:36 [facility] (Rec: 07/06/19 14:41 [facility] [id number]) Hip Goniometric Range of Motion Hip erik Hip ROM WFL Yes Knee Goniometric Range of Motion Knee erik Knee ROM WFL Yes Ankle and Foot Goniometric Range of Motion Ankle and Foot erik Ankle/Foot ROM WFL Yes PT-OP-M Strength Start: 07/03/19 10:30 Freq: Status: Active Protocol: Document 07/03/19 10:36 [facility] (Rec: 07/06/19 14:41 [facility] [id number]) Hip Strength Hip Manual Muscle Testing erik Flexion (L2) 3- Fair- Extension (S1) 3- Fair- Abduction 3 Fair External Rotation 3+ Fair+ Internal Rotation 3+ Fair+ Knee Strength Knee Manual Muscle Testing erik Flexion (S2) 4- Good- Extension (L3) 4- Good- Ankle/Foot Strength Ankle and Foot Manual Muscle Testing erik Dorsiflexion (L4) 4 Good Plantarflexion (S1) 4 Good PT-OP-N Lymphedema Start: 07/03/19 10:30 Freq: Status: Active Protocol: Document 01/20/20 15:52 [facility] (Rec: 01/20/20 16:10 [facility] [id number]) Lymphedema Measurements Lower Extremity Circumference Measurements Left Affected MT Heads 27.7 cm Medial Malleolus 38.2 cm 10 cm From Medial Malleolus 45.1 cm 20 cm From Medial Malleolus 67.9 cm 30 cm From Medial Malleolus 74.9 cm 40 cm From Medial Malleolus 81.6 cm Right Affected MT Heads 26.3 cm Medial Malleolus 38.3 cm 10 cm From Medial Malleolus 58.4 cm 20 cm From Medial Malleolus 76.3 cm 30 cm From Medial Malleolus 85.9 cm 40 cm From Medial Malleolus 80.9 cm Comments Lymphedema Comments Increase in edema except for reduction right foot due to wearing ready-wrap. PT-OP-Q Treatments Start: 07/03/19 10:30 Freq: Status: Active Protocol: Document 01/27/20 10:31 [facility] (Rec: 01/27/20 10:34 [facility] [id number]) Cardio Equipment Recumbent Stepper (Sci-Fit) Duration (Minutes) 3 Resistance 1 Seat Position 13 Lymphedema Treatment Manual Lymphatic Drainage Location Erik LE's Lymphedema Wrapping Body Location erik LE's Materials Erik:1 Coban for toe wraps, Size F Tubigrip toes to ankle, Size K ankle to knee, bilateral foot and lower leg ready wraps. Right thigh: Artiflex and Comprilan knee to groin. Sequential Lymphedema Exercises Location bilateral LE's Comments 10 reps ea Compression Garment Assessment Compression Garment Assessment Details States she has some stretchy jeans she previously wore, she will try as we further research other options for upper leg and abdominal compression to facilitate lymphatic flow. Ready-wrap fit to left foot ( too small for right) Patient Education Compression Garments patient to follow-up, make appointment with [facility] Other Discuss upper thigh compression options with [facility] Other Other application of lotion bilateral LE's: Phytoplex for skin care PT-OP-R Modalities Start: 07/03/19 10:30 Freq: Status: Active Protocol: Document 11/10/19 16:32 [facility] (Rec: 11/10/19 16:38 [facility] [id number]) Compression Pump Treatment Treatment Location Left Leg Pressure Amount (mmHg) (mmHG) 45 Inflation Time (Seconds) 10 Deflation Time (Seconds) 10 Treatment Duration (minutes) 30 Treatment Tolerance Good Treatment Comments patient right LE too large to fit even with scorer single. Pump used during MLD to right LE. PT-OP-T Assessment and Plan Start: 07/03/19 10:30 Freq: Status: Active Protocol: Document 01/27/20 10:31 [facility] (Rec: 01/27/20 10:34 [facility] [id number]) Physical Therapy Assessment Other Concerns Barriers to Rehabilitation Low activity level Fibromyalgia, hernia, arthritis, asthma, obesity Goals 4 Impairment weakness bilateral LE's Pen[facility]entiary Goal (LTG) Patient to demonstrate improvement in LE strength to at least 4/5 throughout 09/30/19: No progress due to Covid19 11/24/28: Goal progress, improvement in exercise tolerance 12/29/19: Had been making gains but due to recent exacerbation with cellulitis, activity level very limited again, unable to tolerate MMT. LTG Duration 03/31/20 3 Impairment difficulty walking community distances Roving Or Yarn Color Checker Goal (LTG) Patient able to consistently ambulate community distances wearing appropriate compression to bilateral LEs 09/30/19: no progress due to patient on hold due to Covid19 11/25/19:min improvement 12/29/19: Had been making improvements until recent cellulitis with lymphedema exacerbation, legs heavy, minimal ability to ambulate LTG Duration 03/31/20 2 Impairment pain bilateral LE's [facility]iary Goal (LTG) Decrease pain to no greater than 3/10 with decrease in lymphedema. 09/30/19: no progress due to patient on hold due to Covid19 11/25/19: mild goal progress 12/29/19: again worsened due to recent cellulitis with increased pain LTG Duration 03/31/20 1 Impairment function-limiting lymphedema bilateral LE's Short Term Goal (STG) Educate patient in all aspects of lymphedema self-care including self-bandaging, skin care, self-MLD, exercise. 09/30/19: good goal progress 11/25/19: patient has now obtained Solaris ready-wrap compression alternatives with good tolerance, now able to be compliant with application of compression. Relies on children to help with application and with skin care due to obesity. 12/29/19: good goal progress with use of compression alternatives, though still awaiting delievery of appropriate size foot component right. STG Duration 01/28/20 [facility]iary Goal (LTG) Decrease edema to stable level to allow patient to be able to be fit with appropriate compression for home management. Patient to be independent with all components of self-care to include skin care, self MLD, exercise, and compression use. 11/25/19: good goal progress, especially with use of Solaris Ready-wrap 12/29/19: good goal progress though with adjustments needing to be made due to recent exacerbation LTG Duration 03/31/20 Assessment Summary Assessment Noted reduction in lymphedema in lower legs, but appears to be pocketing now in thighs; patient encouraged to consult with [facility] regarding compression options. She has worn her stretchy jeans a few times, but not consistently, thinks they may have been some helpful. Physical Therapy Plan Frequency and Duration Frequency of Treatment 2x/wk Duration of Treatment 12 Plan of Care Start Date 12/29/19 Plan of Care End Date 03/31/20 Therapeutic Interventions Therapeutic Interventions Lymphedema Management,Manual Therapy,Patient/Caregiver Education,Self-Care/Home Management,Soft Tissue Mobilization,Therapeutic Exercises Next Visit Focus/Plan Next Note Type Treatment Note Next Visit Plan Evaluate response to wrapping of right knee to thigh, follow -up regarding any discussions with [facility] regarding compression for thighs, to facilitate further lymphatic flow out of legs, healing of wounds, improved mobility. Circumferential measurements of thighs.
--- NOTE | 2020-02-10 08:08 | PT-OP ANOTE ---
cancelled due to ill-upset stomach
--- NOTE | 2020-03-02 14:20 | PT.OTN ---
Current Diagnoses Lymphedema, not elsewhere classified (03/02/20) Pain in right lower leg (03/02/20) Pain in left lower leg (03/02/20) Difficulty in walking, not elsewhere classified (03/02/20) Weakness (03/02/20) Physical Therapy Treatment Note PT-OP-A Visit Information Start: 07/03/19 10:30 Freq: Status: Active Protocol: Document 03/02/20 08:58 SAK (Rec: 03/02/20 09:13 SAK [id number]) Out-Patient Physical Therapy Visit Information Visit Information Visit Type Treatment Note Visit Start Time 09:00 Visit Stop Time 10:25 Total Visit Minutes 85 Visit Number 26 Evaluation Information Evaluation Date 11/25/19 PT-OP-B Current Condition Start: 07/03/19 10:30 Freq: Status: Active Protocol: Document 07/03/19 10:36 SAK (Rec: 07/03/19 12:00 SAK [id number]) Current Condition History of Current Condition Onset Date 1 1/2 years Current Complaints bilateral LE's History of Current Condition Prior to 1 1/2 years ago, legs would swell sometimes but it would go down, never stayed. Gradual worsening, swelling would stay longer periods of time, then got to the point didn't go away, just got worse and worse. States physician kept putting her on diuretics, not helpful. In ER in January for wound posterior right LE; continues with wound care department at [facility]. Has PE, on Warfarin. History of hernia surgery, appendix removal, 2 C sections , several ovarian cysts states noone wants to touch it. Right ovary removed due to a cyst. Compression stockings hard to get on and she states they don't seem to be helpful, not sure of compression level , doesn't have stockings with her this date. Very limited mobility, reports difficult to get to the bathroom at times. Prior Treatments and Tests diuretics compression stockings Treatment Goals Patient/Caregiver Goals Decrease swelling, be able to self-managel. Prior Functional Status Baseline Function- ADL's Independent Baseline Function- Mobility Independent Baseline Function- Gait independent no device Baseline Function- Recreation/Hobbies no limitations Current Functional Impairments (Reported) Functional Limitations- ADL's takes increased time Functional Limitations- Mobility/Gait decreased tolerance due to heaviness of her legs as well as pain Functional Limitations- Work/School unable Functional Limitations- Recreation/ limited to seated Hobbies Personal Factors Other Personal Factors That May Effect PMH: fibromyalgia Therapy/Recovery PT-OP-C Subjective Start: 07/03/19 10:30 Freq: Status: Active Protocol: Document 03/02/20 08:58 SAK (Rec: 03/02/20 09:13 SAK [id number]) OP-PT Subjective Patient Comments Patient Comments Hasn't been able to get any tights, wearing stretchy jeans most of the time, feels they are helpful in combination with compression alternatives. Weight 464.9 last week, weight down. wound has stopped draining. Doing antibiotics for another week through infectious disease specialist. Will take one week off of antibiotics and see how she does. Patient reports she doesn't think she can afford any more compression items until after the new year as she has new bed to pay for. PT-OP-E Functional Tests Start: 07/03/19 10:30 Freq: Status: Active Protocol: Document 07/03/19 10:36 [facility] (Rec: 07/06/19 14:41 [facility] [id number]) Functional Tests 2 Minute Walk Test Distance 75 ft PT-OP-J Posture/Palpation/Skin Start: 07/03/19 10:30 Freq: Status: Active Protocol: Document 07/03/19 10:36 [facility] (Rec: 07/06/19 14:41 [facility] [id number]) Palpation Assessment Location bilateral LE Palpation Findings Edema,Soft Tissue Tightness Palpation Details Fibrosis bilateral distal LE's between knee and ankles, though difficult to fully assess due to Coban on right LE Skin Assessment Other Assessments Skin Assessment Comments Right LE covered with Coban from knee to foot by wound care, not removed this date Mild hemosideran staining noted on left lower leg. PT-OP-K Range of Motion Start: 07/03/19 10:30 Freq: Status: Active Protocol: Document 07/03/19 10:36 [facility]AK (Rec: 07/06/19 14:41 [facility] [id number]) Hip Goniometric Range of Motion Hip erik Hip ROM WFL Yes Knee Goniometric Range of Motion Knee erik Knee ROM WFL Yes Ankle and Foot Goniometric Range of Motion Ankle and Foot erik Ankle/Foot ROM WFL Yes PT-OP-M Strength Start: 07/03/19 10:30 Freq: Status: Active Protocol: Document 07/03/19 10:36 [facility] (Rec: 07/06/19 14:41 [facility] [id number]) Hip Strength Hip Manual Muscle Testing erik Flexion (L2) 3- Fair- Extension (S1) 3- Fair- Abduction 3 Fair External Rotation 3+ Fair+ Internal Rotation 3+ Fair+ Knee Strength Knee Manual Muscle Testing erik Flexion (S2) 4- Good- Extension (L3) 4- Good- Ankle/Foot Strength Ankle and Foot Manual Muscle Testing erik Dorsiflexion (L4) 4 Good Plantarflexion (S1) 4 Good PT-OP-N Lymphedema Start: 07/03/19 10:30 Freq: Status: Active Protocol: Document 01/20/20 15:52 [facility] (Rec: 01/20/20 16:10 [facility] [id number]) Lymphedema Measurements Lower Extremity Circumference Measurements Left Affected MT Heads 27.7 cm Medial Malleolus 38.2 cm 10 cm From Medial Malleolus 45.1 cm 20 cm From Medial Malleolus 67.9 cm 30 cm From Medial Malleolus 74.9 cm 40 cm From Medial Malleolus 81.6 cm Right Affected MT Heads 26.3 cm Medial Malleolus 38.3 cm 10 cm From Medial Malleolus 58.4 cm 20 cm From Medial Malleolus 76.3 cm 30 cm From Medial Malleolus 85.9 cm 40 cm From Medial Malleolus 80.9 cm Comments Lymphedema Comments Increase in edema except for reduction right foot due to wearing ready-wrap. PT-OP-Q Treatments Start: 07/03/19 10:30 Freq: Status: Active Protocol: Document 03/02/20 08:58 [facility] (Rec: 03/02/20 09:13 [facility] [id number]) Cardio Equipment Recumbent Stepper (Sci-Fit) Duration (Minutes) 3 Resistance 1 Seat Position 12 Other stopped due to knee pain. Lymphedema Treatment Manual Lymphatic Drainage Location Erik LE's Lymphedema Wrapping Body Location erik LE's Materials Erik:3 Coban for foot ankle compression, Size F Tubigrip toes to ankle, Size K ankle to knee, bilateral foot and lower leg ready wraps. Sequential Lymphedema Exercises Location bilateral LE's Comments 10 reps ea Other Other application of lotion bilateral LE's: Phytoplex for skin care PT-OP-R Modalities Start: 07/03/19 10:30 Freq: Status: Active Protocol: Document 11/10/19 16:32 [facility] (Rec: 11/10/19 16:38 [facility] [id number]) Compression Pump Treatment Treatment Location Left Leg Pressure Amount (mmHg) (mmHG) 45 Inflation Time (Seconds) 10 Deflation Time (Seconds) 10 Treatment Duration (minutes) 30 Treatment Tolerance Good Treatment Comments patient right LE too large to fit even with circuit breaker supervisor. Pump used during MLD to right LE. PT-OP-T Assessment and Plan Start: 07/03/19 10:30 Freq: Status: Active Protocol: Document 03/02/20 08:58 [facility] (Rec: 03/02/20 09:13 [facility] [id number]) Physical Therapy Assessment Goals 4 Impairment weakness bilateral LE's [facility] Goal (LTG) Patient to demonstrate improvement in LE strength to at least 4/5 throughout 09/30/19: No progress due to Covid19 11/24/28: Goal progress, improvement in exercise tolerance 12/29/19: Had been making gains but due to recent exacerbation with cellulitis, activity level very limited again, unable to tolerate MMT. LTG Duration 03/31/20 3 Impairment difficulty walking community distances [facility] Goal (LTG) Patient able to consistently ambulate community distances wearing appropriate compression to bilateral LEs 09/30/19: no progress due to patient on hold due to Covid19 11/25/19:min improvement 12/29/19: Had been making improvements until recent cellulitis with lymphedema exacerbation, legs heavy, minimal ability to ambulate LTG Duration 03/31/20 2 Impairment pain bilateral LE's Applied Mathematician Goal (LTG) Decrease pain to no greater than 3/10 with decrease in lymphedema. 09/30/19: no progress due to patient on hold due to Covid19 11/25/19: mild goal progress 12/29/19: again worsened due to recent cellulitis with increased pain LTG Duration 03/31/20 1 Impairment function-limiting lymphedema bilateral LE's Short Term Goal (STG) Educate patient in all aspects of lymphedema self-care including self-bandaging, skin care, self-MLD, exercise. 09/30/19: good goal progress 11/25/19: patient has now obtained Solaris ready-wrap compression alternatives with good tolerance, now able to be compliant with application of compression. Relies on children to help with application and with skin care due to obesity. 12/29/19: good goal progress with use of compression alternatives, though still awaiting delievery of appropriate size foot component right. STG Duration 01/28/20 [facility] Goal (LTG) Decrease edema to stable level to allow patient to be able to be fit with appropriate compression for home management. Patient to be independent with all components of self-care to include skin care, self MLD, exercise, and compression use. 11/25/19: good goal progress, especially with use of Solaris Ready-wrap 12/29/19: good goal progress though with adjustments needing to be made due to recent exacerbation LTG Duration 03/31/20 Assessment Summary Assessment Reduced lymphedema right LE, stable in left LE. Determine if Coban on foot and ankle sufficient or needs to return to use of ready wraps. Improved speed of gait. Physical Therapy Plan Frequency and Duration Frequency of Treatment 2x/wk Duration of Treatment 12 Plan of Care Start Date 12/29/19 Plan of Care End Date 03/31/20 Therapeutic Interventions Therapeutic Interventions Lymphedema Management,Manual Therapy,Patient/Caregiver Education,Self-Care/Home Management,Soft Tissue Mobilization,Therapeutic Exercises Next Visit Focus/Plan Next Note Type Treatment Note Next Visit Plan Continue lymphedema management .
--- NOTE | 2020-03-08 13:21 | PT.OTN ---
Current Diagnoses Lymphedema, not elsewhere classified (03/08/20) Pain in right lower leg (03/08/20) Pain in left lower leg (03/08/20) Difficulty in walking, not elsewhere classified (03/08/20) Weakness (03/08/20) Physical Therapy Treatment Note PT-OP-A Visit Information Start: 07/03/19 10:30 Freq: Status: Active Protocol: Document 03/08/20 13:11 SAK (Rec: 03/08/20 13:20 [facility] [id number]) Out-Patient Physical Therapy Visit Information Visit Information Visit Type Treatment Note Visit Start Time 10:30 Visit Stop Time 11:58 Total Visit Minutes 88 Visit Number 27 Evaluation Information Evaluation Date 11/25/19 PT-OP-B Current Condition Start: 07/03/19 10:30 Freq: Status: Active Protocol: Document 07/03/19 10:36 SAK (Rec: 07/03/19 12:00 SAK [id number]) Current Condition History of Current Condition Onset Date 1 1/2 years Current Complaints bilateral LE's History of Current Condition Prior to 1 1/2 years ago, legs would swell sometimes but it would go down, never stayed. Gradual worsening, swelling would stay longer periods of time, then got to the point didn't go away, just got worse and worse. States physician kept putting her on diuretics, not helpful. In ER in January for wound posterior right LE; continues with wound care department at [facility]. Has PE, on Warfarin. History of hernia surgery, appendix removal, 2 C sections , several ovarian cysts states noone wants to touch it. Right ovary removed due to a cyst. Compression stockings hard to get on and she states they don't seem to be helpful, not sure of compression level , doesn't have stockings with her this date. Very limited mobility, reports difficult to get to the bathroom at times. Prior Treatments and Tests diuretics compression stockings Treatment Goals Patient/Caregiver Goals Decrease swelling, be able to self-managel. Prior Functional Status Baseline Function- ADL's Independent Baseline Function- Mobility Independent Baseline Function- Gait independent no device Baseline Function- Recreation/Hobbies no limitations Current Functional Impairments (Reported) Functional Limitations- ADL's takes increased time Functional Limitations- Mobility/Gait decreased tolerance due to heaviness of her legs as well as pain Functional Limitations- Work/School unable Functional Limitations- Recreation/ limited to seated Hobbies Personal Factors Other Personal Factors That May Effect PMH: fibromyalgia Therapy/Recovery PT-OP-C Subjective Start: 07/03/19 10:30 Freq: Status: Active Protocol: Document 03/08/20 13:11 SAK (Rec: 03/08/20 13:21 [facility] [id number]) OP-PT Subjective Patient Comments Patient Comments Patient upset over mother having heart attack over the weekend and having spots found on her lungs. Not able to do as much exercise over the weekend. Patient Reported Progress Improving PT-OP-E Functional Tests Start: 07/03/19 10:30 Freq: Status: Active Protocol: Document 07/03/19 10:36 SAK (Rec: 07/06/19 14:41 [facility] [id number]) Functional Tests 2 Minute Walk Test Distance 75 ft PT-OP-J Posture/Palpation/Skin Start: 07/03/19 10:30 Freq: Status: Active Protocol: Document 07/03/19 10:36 SAK (Rec: 07/06/19 14:41 [facility] [id number]) Palpation Assessment Location bilateral LE Palpation Findings Edema,Soft Tissue Tightness Palpation Details Fibrosis bilateral distal LE's between knee and ankles, though difficult to fully assess due to Coban on right LE Skin Assessment Other Assessments Skin Assessment Comments Right LE covered with Coban from knee to foot by wound care, not removed this date Mild hemosideran staining noted on left lower leg. PT-OP-K Range of Motion Start: 07/03/19 10:30 Freq: Status: Active Protocol: Document 07/03/19 10:36 [facility] (Rec: 07/06/19 14:41 [facility] [id number]) Hip Goniometric Range of Motion Hip erik Hip ROM WFL Yes Knee Goniometric Range of Motion Knee erik Knee ROM WFL Yes Ankle and Foot Goniometric Range of Motion Ankle and Foot erik Ankle/Foot ROM WFL Yes PT-OP-M Strength Start: 07/03/19 10:30 Freq: Status: Active Protocol: Document 07/03/19 10:36 SAK (Rec: 07/06/19 14:41 [facility] [id number]) Hip Strength Hip Manual Muscle Testing erik Flexion (L2) 3- Fair- Extension (S1) 3- Fair- Abduction 3 Fair External Rotation 3+ Fair+ Internal Rotation 3+ Fair+ Knee Strength Knee Manual Muscle Testing erik Flexion (S2) 4- Good- Extension (L3) 4- Good- Ankle/Foot Strength Ankle and Foot Manual Muscle Testing erik Dorsiflexion (L4) 4 Good Plantarflexion (S1) 4 Good PT-OP-N Lymphedema Start: 07/03/19 10:30 Freq: Status: Active Protocol: Document 01/20/20 15:52 [facility] (Rec: 01/20/20 16:10 [facility] [id number]) Lymphedema Measurements Lower Extremity Circumference Measurements Left Affected MT Heads 27.7 cm Medial Malleolus 38.2 cm 10 cm From Medial Malleolus 45.1 cm 20 cm From Medial Malleolus 67.9 cm 30 cm From Medial Malleolus 74.9 cm 40 cm From Medial Malleolus 81.6 cm Right Affected MT Heads 26.3 cm Medial Malleolus 38.3 cm 10 cm From Medial Malleolus 58.4 cm 20 cm From Medial Malleolus 76.3 cm 30 cm From Medial Malleolus 85.9 cm 40 cm From Medial Malleolus 80.9 cm Comments Lymphedema Comments Increase in edema except for reduction right foot due to wearing ready-wrap. PT-OP-Q Treatments Start: 07/03/19 10:30 Freq: Status: Active Protocol: Document 03/08/20 13:11 [facility] (Rec: 03/08/20 13:20 [facility] [id number]) Cardio Equipment Recumbent Stepper (Sci-Fit) Duration (Minutes) 4 Resistance 1 Seat Position 12 Other stopped due to knee pain. Lymphedema Treatment Manual Lymphatic Drainage Location Erik LE's Lymphedema Wrapping Body Location erik LE's Materials Erik:3 Coban for foot ankle compression, Size K tubigrip calf to knee ankle with Artiflex and 1/2' black foam ankle to mid , bilateral foot and lower leg ready wraps. Sequential Lymphedema Exercises Location bilateral LE's Comments 10 reps ea Other Other application of lotion bilateral LE's: Phytoplex for skin care PT-OP-R Modalities Start: 07/03/19 10:30 Freq: Status: Active Protocol: Document 11/10/19 16:32 SAK (Rec: 11/10/19 16:38 [facility] [id number]) Compression Pump Treatment Treatment Location Left Leg Pressure Amount (mmHg) (mmHG) 45 Inflation Time (Seconds) 10 Deflation Time (Seconds) 10 Treatment Duration (minutes) 30 Treatment Tolerance Good Treatment Comments patient right LE too large to fit even with enrollment specialist. Pump used during MLD to right LE. PT-OP-T Assessment and Plan Start: 07/03/19 10:30 Freq: Status: Active Protocol: Document 03/08/20 13:11 [facility] (Rec: 03/08/20 13:20 [facility] [id number]) Physical Therapy Assessment Assessment Summary Assessment Improved edema today, patient feels Coban helpful for feet, ankles and lower legs. Trial black foam under Tubigrip to prevent Tubigrip from sliding into speces between skin folds . Physical Therapy Plan Frequency and Duration Frequency of Treatment 2x/wk Duration of Treatment 12 Plan of Care Start Date 12/29/19 Plan of Care End Date 03/31/20 Therapeutic Interventions Therapeutic Interventions Lymphedema Management,Manual Therapy,Patient/Caregiver Education,Self-Care/Home Management,Soft Tissue Mobilization,Therapeutic Exercises Next Visit Focus/Plan Next Note Type Treatment Note Next Visit Plan Assess response to use of black foam today. Continue lymphedema management.
--- NOTE | 2020-03-16 09:20 | PT.OTN ---
Current Diagnoses Lymphedema, not elsewhere classified (03/15/20) Pain in right lower leg (03/15/20) Pain in left lower leg (03/15/20) Difficulty in walking, not elsewhere classified (03/15/20) Weakness (03/15/20) Physical Therapy Treatment Note PT-OP-A Visit Information Start: 07/03/19 10:30 Freq: Status: Active Protocol: Document 03/15/20 10:31 SAK (Rec: 03/15/20 11:16 SAK [id number]) Out-Patient Physical Therapy Visit Information Visit Information Visit Type Treatment Note Visit Start Time 10:30 Visit Stop Time 11:58 Total Visit Minutes 88 Visit Number 28 Evaluation Information Evaluation Date 11/25/19 PT-OP-B Current Condition Start: 07/03/19 10:30 Freq: Status: Active Protocol: Document 07/03/19 10:36 SAK (Rec: 07/03/19 12:00 SAK [id number]) Current Condition History of Current Condition Onset Date 1 1/2 years Current Complaints bilateral LE's History of Current Condition Prior to 1 1/2 years ago, legs would swell sometimes but it would go down, never stayed. Gradual worsening, swelling would stay longer periods of time, then got to the point didn't go away, just got worse and worse. States physician kept putting her on diuretics, not helpful. In ER in January for wound posterior right LE; continues with wound care department at [facility]. Has PE, on Warfarin. History of hernia surgery, appendix removal, 2 C sections , several ovarian cysts states noone wants to touch it. Right ovary removed due to a cyst. Compression stockings hard to get on and she states they don't seem to be helpful, not sure of compression level , doesn't have stockings with her this date. Very limited mobility, reports difficult to get to the bathroom at times. Prior Treatments and Tests diuretics compression stockings Treatment Goals Patient/Caregiver Goals Decrease swelling, be able to self-managel. Prior Functional Status Baseline Function- ADL's Independent Baseline Function- Mobility Independent Baseline Function- Gait independent no device Baseline Function- Recreation/Hobbies no limitations Current Functional Impairments (Reported) Functional Limitations- ADL's takes increased time Functional Limitations- Mobility/Gait decreased tolerance due to heaviness of her legs as well as pain Functional Limitations- Work/School unable Functional Limitations- Recreation/ limited to seated Hobbies Personal Factors Other Personal Factors That May Effect PMH: fibromyalgia Therapy/Recovery PT-OP-C Subjective Start: 07/03/19 10:30 Freq: Status: Active Protocol: Document 03/15/20 10:31 SAK (Rec: 03/15/20 11:16 SAK [id number]) OP-PT Subjective Patient Comments Patient Comments Mother diagnosed with lung cancer, things stressful at home. Right foot did well with the extra foam, left one swelled up more. Bottom of both feet right greater than left being rubbed raw by compression wraps. States she has ordered some tights for compression of knees, upper legs, and abdomen as has been recommended. PT-OP-E Functional Tests Start: 07/03/19 10:30 Freq: Status: Active Protocol: Document 07/03/19 10:36 SAK (Rec: 07/06/19 14:41 [facility] [id number]) Functional Tests 2 Minute Walk Test Distance 75 ft PT-OP-J Posture/Palpation/Skin Start: 07/03/19 10:30 Freq: Status: Active Protocol: Document 07/03/19 10:36 SAK (Rec: 07/06/19 14:41 [facility] [id number]) Palpation Assessment Location bilateral LE Palpation Findings Edema,Soft Tissue Tightness Palpation Details Fibrosis bilateral distal LE's between knee and ankles, though difficult to fully assess due to Coban on right LE Skin Assessment Other Assessments Skin Assessment Comments Right LE covered with Coban from knee to foot by wound care, not removed this date Mild hemosideran staining noted on left lower leg. PT-OP-K Range of Motion Start: 07/03/19 10:30 Freq: Status: Active Protocol: Document 07/03/19 10:36 SAK (Rec: 07/06/19 14:41 [facility] [id number]) Hip Goniometric Range of Motion Hip erik Hip ROM WFL Yes Knee Goniometric Range of Motion Knee erik Knee ROM WFL Yes Ankle and Foot Goniometric Range of Motion Ankle and Foot erik Ankle/Foot ROM WFL Yes PT-OP-M Strength Start: 07/03/19 10:30 Freq: Status: Active Protocol: Document 07/03/19 10:36 SAK (Rec: 07/06/19 14:41 [facility] [id number]) Hip Strength Hip Manual Muscle Testing erik Flexion (L2) 3- Fair- Extension (S1) 3- Fair- Abduction 3 Fair External Rotation 3+ Fair+ Internal Rotation 3+ Fair+ Knee Strength Knee Manual Muscle Testing erik Flexion (S2) 4- Good- Extension (L3) 4- Good- Ankle/Foot Strength Ankle and Foot Manual Muscle Testing erik Dorsiflexion (L4) 4 Good Plantarflexion (S1) 4 Good PT-OP-N Lymphedema Start: 07/03/19 10:30 Freq: Status: Active Protocol: Document 01/20/20 15:52 [facility] (Rec: 01/20/20 16:10 [facility] [id number]) Lymphedema Measurements Lower Extremity Circumference Measurements Left Affected MT Heads 27.7 cm Medial Malleolus 38.2 cm 10 cm From Medial Malleolus 45.1 cm 20 cm From Medial Malleolus 67.9 cm 30 cm From Medial Malleolus 74.9 cm 40 cm From Medial Malleolus 81.6 cm Right Affected MT Heads 26.3 cm Medial Malleolus 38.3 cm 10 cm From Medial Malleolus 58.4 cm 20 cm From Medial Malleolus 76.3 cm 30 cm From Medial Malleolus 85.9 cm 40 cm From Medial Malleolus 80.9 cm Comments Lymphedema Comments Increase in edema except for reduction right foot due to wearing ready-wrap. PT-OP-Q Treatments Start: 07/03/19 10:30 Freq: Status: Active Protocol: Document 03/15/20 10:31 [facility] (Rec: 03/15/20 11:16 [facility] [id number]) Cardio Equipment Recumbent Stepper (Sci-Fit) Duration (Minutes) 4 Resistance 1 Seat Position 12 Other stopped due to knee pain. Lymphedema Treatment Manual Lymphatic Drainage Location Erik LE's Lymphedema Wrapping Body Location erik LE's Materials Erik:3 Coban for foot ankle compression, Size K soft tubigrip calf to knee ankle with Artiflex and 1/2' black foam ankle to mid , bilateral foot and lower leg ready wraps . Sequential Lymphedema Exercises Location bilateral LE's Comments 10 reps ea Compression Garment Assessment Compression Garment Assessment Details Don't feel patient getting adequate compression at times with wraps due to children donning. She needs compression at knees and above and have repeatedly discussed this. She has been wearing a pair of stretchy jeans at times which are somewhat helpful. She has ordered another pair of tights for trial (first fit poorly). 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 Pump used during MLD to right LE. PT-OP-T Assessment and Plan Start: 07/03/19 10:30 Freq: Status: Active Protocol: Document 03/15/20 10:31 [facility] (Rec: 03/15/20 11:16 [facility] [id number]) Physical Therapy Assessment Goals 4 Impairment weakness bilateral LE's Detention Goal (LTG) Patient to demonstrate improvement in LE strength to at least 4/5 throughout 09/30/19: No progress due to Covid19 11/24/28: Goal progress, improvement in exercise tolerance 12/29/19: Had been making gains but due to recent exacerbation with cellulitis, activity level very limited again, unable to tolerate MMT. LTG Duration 03/31/20 3 Impairment difficulty walking community distances [employer] Manager Architect Goal (LTG) Patient able to consistently ambulate community distances wearing appropriate compression to bilateral LEs 09/30/19: no progress due to patient on hold due to Covid19 11/25/19:min improvement 12/29/19: Had been making improvements until recent cellulitis with lymphedema exacerbation, legs heavy, minimal ability to ambulate LTG Duration 03/31/20 2 Impairment pain bilateral LE's [employer] Manager Architect Goal (LTG) Decrease pain to no greater than 3/10 with decrease in lymphedema. 09/30/19: no progress due to patient on hold due to Covid19 11/25/19: mild goal progress 12/29/19: again worsened due to recent cellulitis with increased pain LTG Duration 03/31/20 1 Impairment function-limiting lymphedema bilateral LE's Short Term Goal (STG) Educate patient in all aspects of lymphedema self-care including self-bandaging, skin care, self-MLD, exercise. 09/30/19: good goal progress 11/25/19: patient has now obtained [employer] ready-wrap compression alternatives with good tolerance, now able to be compliant with application of compression. Relies on children to help with application and with skin care due to obesity. 12/29/19: good goal progress with use of compression alternatives, though still awaiting delievery of appropriate size foot component right. STG Duration 01/28/20 Detention Goal (LTG) Decrease edema to stable level to allow patient to be able to be fit with appropriate compression for home management. Patient to be independent with all components of self-care to include skin care, self MLD, exercise, and compression use. 11/25/19: good goal progress, especially with use of [employer] Ready-wrap 12/29/19: good goal progress though with adjustments needing to be made due to recent exacerbation LTG Duration 03/31/20 Assessment Summary Assessment Measurements decreased in feet , but increased upper calves. Patient given further cues for helping her children to do better job wrapping at feet and ankles. Don't feel patient getting adequate compression at times with wraps due to children performing and donning. She needs compression at knees and above and have repeatedly discussed this. She has been wearing a pair of stretchy jeans at times which are somewhat helpful. She has ordered another pair of tights for trial (first fit poorly). Refuses lymphedema wraps above knees. Physical Therapy Plan Frequency and Duration Frequency of Treatment 2x/wk Duration of Treatment 12 Plan of Care Start Date 12/29/19 Plan of Care End Date 03/31/20 Therapeutic Interventions Therapeutic Interventions Lymphedema Management,Manual Therapy,Patient/Caregiver Education,Self-Care/Home Management,Soft Tissue Mobilization,Therapeutic Exercises Next Visit Focus/Plan Next Note Type Treatment Note Next Visit Plan Further problem solving of compression. Continue lymphedema management.
--- NOTE | 2020-03-17 15:10 | PT.OTN ---
Current Diagnoses Lymphedema, not elsewhere classified (03/17/20) Pain in right lower leg (03/17/20) Pain in left lower leg (03/17/20) Difficulty in walking, not elsewhere classified (03/17/20) Weakness (03/17/20) Physical Therapy Treatment Note PT-OP-A Visit Information Start: 07/03/19 10:30 Freq: Status: Active Protocol: Document 03/17/20 10:30 SAK (Rec: 03/17/20 10:43 SAK [id number]) Out-Patient Physical Therapy Visit Information Visit Information Visit Type Treatment Note Visit Start Time 10:30 Visit Stop Time 12:00 Total Visit Minutes 90 Visit Number 29 Evaluation Information Evaluation Date 11/25/19 PT-OP-B Current Condition Start: 07/03/19 10:30 Freq: Status: Active Protocol: Document 07/03/19 10:36 SAK (Rec: 07/03/19 12:00 SAK [id number]) Current Condition History of Current Condition Onset Date 1 1/2 years Current Complaints bilateral LE's History of Current Condition Prior to 1 1/2 years ago, legs would swell sometimes but it would go down, never stayed. Gradual worsening, swelling would stay longer periods of time, then got to the point didn't go away, just got worse and worse. States physician kept putting her on diuretics, not helpful. In ER in January for wound posterior right LE; continues with wound care department at [facility]. Has PE, on Warfarin. History of hernia surgery, appendix removal, 2 C sections , several ovarian cysts states noone wants to touch it. Right ovary removed due to a cyst. Compression stockings hard to get on and she states they don't seem to be helpful, not sure of compression level , doesn't have stockings with her this date. Very limited mobility, reports difficult to get to the bathroom at times. Prior Treatments and Tests diuretics compression stockings Treatment Goals Patient/Caregiver Goals Decrease swelling, be able to self-managel. Prior Functional Status Baseline Function- ADL's Independent Baseline Function- Mobility Independent Baseline Function- Gait independent no device Baseline Function- Recreation/Hobbies no limitations Current Functional Impairments (Reported) Functional Limitations- ADL's takes increased time Functional Limitations- Mobility/Gait decreased tolerance due to heaviness of her legs as well as pain Functional Limitations- Work/School unable Functional Limitations- Recreation/ limited to seated Hobbies Personal Factors Other Personal Factors That May Effect PMH: fibromyalgia Therapy/Recovery PT-OP-C Subjective Start: 07/03/19 10:30 Freq: Status: Active Protocol: Document 03/17/20 10:30 SAK (Rec: 03/17/20 10:43 SAK [id number]) OP-PT Subjective Patient Comments Patient Comments Hasn't ordered biker shorts yet. Just was at wound care; special wash for back of leg prescribed, no lotion on back of leg had to have sore debrided on right LE. Need to watch feet as irritated and concerned about opening up. Had pic line removed. Requests no Coban on toes as made them swell. PT-OP-E Functional Tests Start: 07/03/19 10:30 Freq: Status: Active Protocol: Document 07/03/19 10:36 SAK (Rec: 07/06/19 14:41 [facility] [id number]) Functional Tests 2 Minute Walk Test Distance 75 ft PT-OP-J Posture/Palpation/Skin Start: 07/03/19 10:30 Freq: Status: Active Protocol: Document 07/03/19 10:36 SAK (Rec: 07/06/19 14:41 [facility] [id number]) Palpation Assessment Location bilateral LE Palpation Findings Edema,Soft Tissue Tightness Palpation Details Fibrosis bilateral distal LE's between knee and ankles, though difficult to fully assess due to Coban on right LE Skin Assessment Other Assessments Skin Assessment Comments Right LE covered with Coban from knee to foot by wound care, not removed this date Mild hemosideran staining noted on left lower leg. PT-OP-K Range of Motion Start: 07/03/19 10:30 Freq: Status: Active Protocol: Document 07/03/19 10:36 SAK (Rec: 07/06/19 14:41 [facility] [id number]) Hip Goniometric Range of Motion Hip erik Hip ROM WFL Yes Knee Goniometric Range of Motion Knee erik Knee ROM WFL Yes Ankle and Foot Goniometric Range of Motion Ankle and Foot erik Ankle/Foot ROM WFL Yes PT-OP-M Strength Start: 07/03/19 10:30 Freq: Status: Active Protocol: Document 07/03/19 10:36 SAK (Rec: 07/06/19 14:41 [facility] [id number]) Hip Strength Hip Manual Muscle Testing erik Flexion (L2) 3- Fair- Extension (S1) 3- Fair- Abduction 3 Fair External Rotation 3+ Fair+ Internal Rotation 3+ Fair+ Knee Strength Knee Manual Muscle Testing erik Flexion (S2) 4- Good- Extension (L3) 4- Good- Ankle/Foot Strength Ankle and Foot Manual Muscle Testing erik Dorsiflexion (L4) 4 Good Plantarflexion (S1) 4 Good PT-OP-N Lymphedema Start: 07/03/19 10:30 Freq: Status: Active Protocol: Document 01/20/20 15:52 [facility] (Rec: 01/20/20 16:10 [facility] [id number]) Lymphedema Measurements Lower Extremity Circumference Measurements Left Affected MT Heads 27.7 cm Medial Malleolus 38.2 cm 10 cm From Medial Malleolus 45.1 cm 20 cm From Medial Malleolus 67.9 cm 30 cm From Medial Malleolus 74.9 cm 40 cm From Medial Malleolus 81.6 cm Right Affected MT Heads 26.3 cm Medial Malleolus 38.3 cm 10 cm From Medial Malleolus 58.4 cm 20 cm From Medial Malleolus 76.3 cm 30 cm From Medial Malleolus 85.9 cm 40 cm From Medial Malleolus 80.9 cm Comments Lymphedema Comments Increase in edema except for reduction right foot due to wearing ready-wrap. PT-OP-Q Treatments Start: 07/03/19 10:30 Freq: Status: Active Protocol: Document 03/17/20 10:30 [facility] (Rec: 03/17/20 15:10 [facility] [id number]) Lymphedema Treatment Manual Lymphatic Drainage Location Erik LE's Lymphedema Wrapping Body Location erik LE's Materials Erik:3 Coban for foot ankle compression, Size K soft tubigrip calf to knee ankle with Artiflex and 1/2' black foam ankle to mid , bilateral foot and lower leg ready wraps . Sequential Lymphedema Exercises Location bilateral LE's Comments 10 reps ea Compression Garment Assessment Compression Garment Assessment Details Don't feel patient getting adequate compression at times with wraps due to children donning. She needs compression at knees and above and have repeatedly discussed this. She has been wearing a pair of stretchy jeans at times which are somewhat helpful. She has ordered another pair of tights for trial (first fit poorly). 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 Pump used during MLD to right LE. PT-OP-T Assessment and Plan Start: 07/03/19 10:30 Freq: Status: Active Protocol: Document 03/17/20 10:30 [facility] (Rec: 03/17/20 10:43 [facility] [id number]) Physical Therapy Assessment Goals 4 Impairment weakness bilateral LE's Insurance Claim Auditor Goal (LTG) Patient to demonstrate improvement in LE strength to at least 4/5 throughout 09/30/19: No progress due to Covid19 11/24/28: Goal progress, improvement in exercise tolerance 12/29/19: Had been making gains but due to recent exacerbation with cellulitis, activity level very limited again, unable to tolerate MMT. LTG Duration 03/31/20 3 Impairment difficulty walking community distances Insurance Claim Auditor Goal (LTG) Patient able to consistently ambulate community distances wearing appropriate compression to bilateral LEs 09/30/19: no progress due to patient on hold due to Covid19 11/25/19:min improvement 12/29/19: Had been making improvements until recent cellulitis with lymphedema exacerbation, legs heavy, minimal ability to ambulate LTG Duration 03/31/20 2 Impairment pain bilateral LE's Insurance Claim Auditor Goal (LTG) Decrease pain to no greater than 3/10 with decrease in lymphedema. 09/30/19: no progress due to patient on hold due to Covid19 11/25/19: mild goal progress 12/29/19: again worsened due to recent cellulitis with increased pain LTG Duration 03/31/20 1 Impairment function-limiting lymphedema bilateral LE's Short Term Goal (STG) Educate patient in all aspects of lymphedema self-care including self-bandaging, skin care, self-MLD, exercise. 09/30/19: good goal progress 11/25/19: patient has now obtained Solaris ready-wrap compression alternatives with good tolerance, now able to be compliant with application of compression. Relies on children to help with application and with skin care due to obesity. 12/29/19: good goal progress with use of compression alternatives, though still awaiting delievery of appropriate size foot component right. STG Duration 01/28/20 M[facility] Goal (LTG) Decrease edema to stable level to allow patient to be able to be fit with appropriate compression for home management. Patient to be independent with all components of self-care to include skin care, self MLD, exercise, and compression use. 11/25/19: good goal progress, especially with use of Solaris Ready-wrap 12/29/19: good goal progress though with adjustments needing to be made due to recent exacerbation LTG Duration 03/31/20 Physical Therapy Plan Frequency and Duration Frequency of Treatment 2x/wk Duration of Treatment 12 Plan of Care Start Date 12/29/19 Plan of Care End Date 03/31/20 Therapeutic Interventions Therapeutic Interventions Lymphedema Management,Manual Therapy,Patient/Caregiver Education,Self-Care/Home Management,Soft Tissue Mobilization,Therapeutic Exercises Next Visit Focus/Plan Next Note Type Treatment Note Next Visit Plan Continue lymphedema management
--- NOTE | 2020-03-22 13:29 | PT.OTN ---
Current Diagnoses Lymphedema, not elsewhere classified (03/22/20) Pain in right lower leg (03/22/20) Pain in left lower leg (03/22/20) Difficulty in walking, not elsewhere classified (03/22/20) Weakness (03/22/20) Physical Therapy Treatment Note PT-OP-A Visit Information Start: 07/03/19 10:30 Freq: Status: Active Protocol: Document 03/22/20 13:10 [facility] (Rec: 03/22/20 13:20 [facility] [id number]) Out-Patient Physical Therapy Visit Information Visit Information Visit Type Treatment Note Visit Start Time 10:30 Visit Stop Time 12:02 Total Visit Minutes 92 Visit Number 30 Evaluation Information Evaluation Date 11/25/19 PT-OP-B Current Condition Start: 07/03/19 10:30 Freq: Status: Active Protocol: Document 07/03/19 10:36 SAK (Rec: 07/03/19 12:00 SAK [id number]) Current Condition History of Current Condition Onset Date 1 1/2 years Current Complaints bilateral LE's History of Current Condition Prior to 1 1/2 years ago, legs would swell sometimes but it would go down, never stayed. Gradual worsening, swelling would stay longer periods of time, then got to the point didn't go away, just got worse and worse. States physician kept putting her on diuretics, not helpful. In ER in January for wound posterior right LE; continues with wound care department at [facility]. Has PE, on Warfarin. History of hernia surgery, appendix removal, 2 C sections , several ovarian cysts states noone wants to touch it. Right ovary removed due to a cyst. Compression stockings hard to get on and she states they don't seem to be helpful, not sure of compression level , doesn't have stockings with her this date. Very limited mobility, reports difficult to get to the bathroom at times. Prior Treatments and Tests diuretics compression stockings Treatment Goals Patient/Caregiver Goals Decrease swelling, be able to self-managel. Prior Functional Status Baseline Function- ADL's Independent Baseline Function- Mobility Independent Baseline Function- Gait independent no device Baseline Function- Recreation/Hobbies no limitations Current Functional Impairments (Reported) Functional Limitations- ADL's takes increased time Functional Limitations- Mobility/Gait decreased tolerance due to heaviness of her legs as well as pain Functional Limitations- Work/School unable Functional Limitations- Recreation/ limited to seated Hobbies Personal Factors Other Personal Factors That May Effect PMH: fibromyalgia Therapy/Recovery PT-OP-C Subjective Start: 07/03/19 10:30 Freq: Status: Active Protocol: Document 03/22/20 13:10 [facility] (Rec: 03/22/20 13:20 [facility] [id number]) OP-PT Subjective Patient Comments Patient Comments Has been trying to order biker shorts, difficulty with web site. PT-OP-E Functional Tests Start: 07/03/19 10:30 Freq: Status: Active Protocol: Document 07/03/19 10:36 SAK (Rec: 07/06/19 14:41 [facility] [id number]) Functional Tests 2 Minute Walk Test Distance 75 ft PT-OP-J Posture/Palpation/Skin Start: 07/03/19 10:30 Freq: Status: Active Protocol: Document 07/03/19 10:36 [facility] (Rec: 07/06/19 14:41 [facility] [id number]) Palpation Assessment Location bilateral LE Palpation Findings Edema,Soft Tissue Tightness Palpation Details Fibrosis bilateral distal LE's between knee and ankles, though difficult to fully assess due to Coban on right LE Skin Assessment Other Assessments Skin Assessment Comments Right LE covered with Coban from knee to foot by wound care, not removed this date Mild hemosideran staining noted on left lower leg. PT-OP-K Range of Motion Start: 07/03/19 10:30 Freq: Status: Active Protocol: Document 07/03/19 10:36 [facility] (Rec: 07/06/19 14:41 [facility] [id number]) Hip Goniometric Range of Motion Hip erik Hip ROM WFL Yes Knee Goniometric Range of Motion Knee erik Knee ROM WFL Yes Ankle and Foot Goniometric Range of Motion Ankle and Foot erik Ankle/Foot ROM WFL Yes PT-OP-M Strength Start: 07/03/19 10:30 Freq: Status: Active Protocol: Document 07/03/19 10:36 [facility] (Rec: 07/06/19 14:41 [facility] [id number]) Hip Strength Hip Manual Muscle Testing erik Flexion (L2) 3- Fair- Extension (S1) 3- Fair- Abduction 3 Fair External Rotation 3+ Fair+ Internal Rotation 3+ Fair+ Knee Strength Knee Manual Muscle Testing erik Flexion (S2) 4- Good- Extension (L3) 4- Good- Ankle/Foot Strength Ankle and Foot Manual Muscle Testing erik Dorsiflexion (L4) 4 Good Plantarflexion (S1) 4 Good PT-OP-N Lymphedema Start: 07/03/19 10:30 Freq: Status: Active Protocol: Document 03/22/20 13:10 [facility] (Rec: 03/22/20 13:23 [facility] [id number]) Lymphedema Measurements Lower Extremity Circumference Measurements Left Affected MT Heads 25.3 cm Mid-foot 25.5 cm Medial Malleolus 37.3 cm 10 cm From Medial Malleolus 42.8 cm 20 cm From Medial Malleolus 66.9 cm 30 cm From Medial Malleolus 74 cm 40 cm From Medial Malleolus 81 cm Right Affected MT Heads 25 cm Mid-foot 24.9 cm Medial Malleolus 33.6 cm 10 cm From Medial Malleolus 57 cm 20 cm From Medial Malleolus 73.4 cm 30 cm From Medial Malleolus 77 cm 40 cm From Medial Malleolus 82.6 cm PT-OP-Q Treatments Start: 07/03/19 10:30 Freq: Status: Active Protocol: Document 03/22/20 13:10 [facility] (Rec: 03/22/20 13:20 [facility] [id number]) Cardio Equipment Recumbent Stepper (Sci-Fit) Duration (Minutes) 5 Resistance 1 Seat Position 12 Other stopped due to fatigue Lymphedema Treatment Manual Lymphatic Drainage Location Erik LE's Lymphedema Wrapping Body Location erik LE's Materials toe wraps, Erik:3 Coban and size F tubigrip for foot ankle compression ,Size H tubigrip bilateral foot and lower leg ready wraps. 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 Pump used during MLD to right LE. PT-OP-T Assessment and Plan Start: 07/03/19 10:30 Freq: Status: Active Protocol: Document 03/22/20 13:10 [facility] (Rec: 03/22/20 13:20 [facility] [id number]) Physical Therapy Assessment Goals 4 Impairment weakness bilateral LE's Longterm Goal (LTG) Patient to demonstrate improvement in LE strength to at least 4/5 throughout 09/30/19: No progress due to Covid19 11/24/28: Goal progress, improvement in exercise tolerance 12/29/19: Had been making gains but due to recent exacerbation with cellulitis, activity level very limited again, unable to tolerate MMT. 03/22/20: Good day today, first time since cellulitis treatment appears to be increasing functional strength and activity tolerance LTG Duration 03/31/20 3 Impairment difficulty walking community distances Longterm Goal (LTG) Patient able to consistently ambulate community distances wearing appropriate compression to bilateral LEs 09/30/19: no progress due to patient on hold due to Covid19 11/25/19:min improvement 12/29/19: Had been making improvements until recent cellulitis with lymphedema exacerbation, legs heavy, minimal ability to ambulate 03/22/20: Starting to improve again s/p cellulitis treatment . LTG Duration 03/31/20 2 Impairment pain bilateral LE's Display Decorator Goal (LTG) Decrease pain to no greater than 3/10 with decrease in lymphedema. 09/30/19: no progress due to patient on hold due to Covid19 11/25/19: mild goal progress 12/29/19: again worsened due to recent cellulitis with increased pain 03/22/20: pain 4-5/10 LTG Duration 03/31/20 1 Impairment function-limiting lymphedema bilateral LE's Short Term Goal (STG) Educate patient in all aspects of lymphedema self-care including self-bandaging, skin care, self-MLD, exercise. 09/30/19: good goal progress 11/25/19: patient has now obtained Solaris ready-wrap compression alternatives with good tolerance, now able to be compliant with application of compression. Relies on children to help with application and with skin care due to obesity. 12/29/19: good goal progress with use of compression alternatives, though still awaiting delievery of appropriate size foot component right. STG Duration 01/28/20 Display Decorator Goal (LTG) Decrease edema to stable level to allow patient to be able to be fit with appropriate compression for home management. Patient to be independent with all components of self-care to include skin care, self MLD, exercise, and compression use. 11/25/19: good goal progress, especially with use of Solaris Ready-wrap 12/29/19: good goal progress though with adjustments needing to be made due to recent exacerbation 03/23/20: Continue to make modifications for best tolerance, ability of family to wrap. Patient has continued to refuse wrapping of knees and thighs but is ordering compression capris for more proximal compression to facilitate lymphatic flow. LTG Duration 03/31/20 Assessment Summary Assessment Patient able to increase to 5 min on Sci-Fit and increase ther ex reps. Able to lift right UE up onto treatment table independently today for first time in months. decrease in measurements at feet and ankles today. Continues to need compression at knees and proximally but due to financial constrains and now difficulty with website has been unable to obtain. Hoping to be able to order this week which should assist with lymphatic flow. Physical Therapy Plan Frequency and Duration Frequency of Treatment 2x/wk Duration of Treatment 12 Plan of Care Start Date 12/29/19 Plan of Care End Date 03/31/20 Therapeutic Interventions Therapeutic Interventions Lymphedema Management,Manual Therapy,Patient/Caregiver Education,Self-Care/Home Management,Soft Tissue Mobilization,Therapeutic Exercises Next Visit Focus/Plan Next Note Type Treatment Note Next Visit Plan Continue lymphedema management . Patient to order vikram tights.
--- NOTE | 2020-03-24 10:54 | PT.OTN ---
Current Diagnoses Lymphedema, not elsewhere classified (03/24/20) Pain in right lower leg (03/24/20) Pain in left lower leg (03/24/20) Difficulty in walking, not elsewhere classified (03/24/20) Weakness (03/24/20) Physical Therapy Treatment Note PT-OP-A Visit Information Start: 07/03/19 10:30 Freq: Status: Active Protocol: Document 03/24/20 09:07 SAK (Rec: 03/24/20 09:14 SAK [id number]) Out-Patient Physical Therapy Visit Information Visit Information Visit Type Treatment Note Visit Start Time 10:30 Visit Stop Time 11:59 Total Visit Minutes 89 Visit Number 31 Evaluation Information Evaluation Date 11/25/19 PT-OP-B Current Condition Start: 07/03/19 10:30 Freq: Status: Active Protocol: Document 07/03/19 10:36 SAK (Rec: 07/03/19 12:00 SAK [id number]) Current Condition History of Current Condition Onset Date 1 1/2 years Current Complaints bilateral LE's History of Current Condition Prior to 1 1/2 years ago, legs would swell sometimes but it would go down, never stayed. Gradual worsening, swelling would stay longer periods of time, then got to the point didn't go away, just got worse and worse. States physician kept putting her on diuretics, not helpful. In ER in January for wound posterior right LE; continues with wound care department at [facility]. Has PE, on Warfarin. History of hernia surgery, appendix removal, 2 C sections , several ovarian cysts states noone wants to touch it. Right ovary removed due to a cyst. Compression stockings hard to get on and she states they don't seem to be helpful, not sure of compression level , doesn't have stockings with her this date. Very limited mobility, reports difficult to get to the bathroom at times. Prior Treatments and Tests diuretics compression stockings Treatment Goals Patient/Caregiver Goals Decrease swelling, be able to self-managel. Prior Functional Status Baseline Function- ADL's Independent Baseline Function- Mobility Independent Baseline Function- Gait independent no device Baseline Function- Recreation/Hobbies no limitations Current Functional Impairments (Reported) Functional Limitations- ADL's takes increased time Functional Limitations- Mobility/Gait decreased tolerance due to heaviness of her legs as well as pain Functional Limitations- Work/School unable Functional Limitations- Recreation/ limited to seated Hobbies Personal Factors Other Personal Factors That May Effect PMH: fibromyalgia Therapy/Recovery PT-OP-C Subjective Start: 07/03/19 10:30 Freq: Status: Active Protocol: Document 03/24/20 09:07 SAK (Rec: 03/24/20 09:14 SAK [id number]) OP-PT Subjective Patient Comments Patient Comments No new c/o. Dealing with her mother's needs and illness. PT-OP-E Functional Tests Start: 07/03/19 10:30 Freq: Status: Active Protocol: Document 07/03/19 10:36 SAK (Rec: 07/06/19 14:41 SAK [id number]) Functional Tests 2 Minute Walk Test Distance 75 ft PT-OP-J Posture/Palpation/Skin Start: 07/03/19 10:30 Freq: Status: Active Protocol: Document 07/03/19 10:36 SAK (Rec: 07/06/19 14:41 [facility] [id number]) Palpation Assessment Location bilateral LE Palpation Findings Edema,Soft Tissue Tightness Palpation Details Fibrosis bilateral distal LE's between knee and ankles, though difficult to fully assess due to Coban on right LE Skin Assessment Other Assessments Skin Assessment Comments Right LE covered with Coban from knee to foot by wound care, not removed this date Mild hemosideran staining noted on left lower leg. PT-OP-K Range of Motion Start: 07/03/19 10:30 Freq: Status: Active Protocol: Document 07/03/19 10:36 SAK (Rec: 07/06/19 14:41 [facility] [id number]) Hip Goniometric Range of Motion Hip erik Hip ROM WFL Yes Knee Goniometric Range of Motion Knee erik Knee ROM WFL Yes Ankle and Foot Goniometric Range of Motion Ankle and Foot erik Ankle/Foot ROM WFL Yes PT-OP-M Strength Start: 07/03/19 10:30 Freq: Status: Active Protocol: Document 07/03/19 10:36 SAK (Rec: 07/06/19 14:41 [facility] [id number]) Hip Strength Hip Manual Muscle Testing erik Flexion (L2) 3- Fair- Extension (S1) 3- Fair- Abduction 3 Fair External Rotation 3+ Fair+ Internal Rotation 3+ Fair+ Knee Strength Knee Manual Muscle Testing erik Flexion (S2) 4- Good- Extension (L3) 4- Good- Ankle/Foot Strength Ankle and Foot Manual Muscle Testing erik Dorsiflexion (L4) 4 Good Plantarflexion (S1) 4 Good PT-OP-N Lymphedema Start: 07/03/19 10:30 Freq: Status: Active Protocol: Document 03/24/20 09:07 [facility] (Rec: 03/24/20 10:53 [facility] [id number]) Lymphedema Measurements Lower Extremity Circumference Measurements Left Affected MT Heads 23.9 cm Mid-foot 23.9 cm Medial Malleolus 30.5 cm 10 cm From Medial Malleolus 42.4 cm 20 cm From Medial Malleolus 64 cm 30 cm From Medial Malleolus 68.3 cm 40 cm From Medial Malleolus 79.3 cm Right Affected MT Heads 25 cm Mid-foot 24.2 cm Medial Malleolus 32.9 cm 10 cm From Medial Malleolus 51.4 cm 20 cm From Medial Malleolus 71.3 cm 30 cm From Medial Malleolus 74.8 cm 40 cm From Medial Malleolus 80.2 cm PT-OP-Q Treatments Start: 07/03/19 10:30 Freq: Status: Active Protocol: Document 03/24/20 09:07 [facility] (Rec: 03/24/20 09:14 [facility] [id number]) Cardio Equipment Recumbent Stepper (Sci-Fit) Duration (Minutes) 5 Resistance 1 Seat Position 12 Other stopped due to fatigue, pain. 5 min 12 sec Lymphedema Treatment Manual Lymphatic Drainage Location Erik LE's Lymphedema Wrapping Body Location erik LE's Materials toe wraps, erik gauze wrap Erik: 3 Coban and size F tubigrip for foot ankle compression , Size J tubigrip left lower leg and Size K tubigrip right lower leg Sequential Lymphedema Exercises Location bilateral LE's Comments 20 reps ea Patient Education Other Remove Coban and wraps if anterior left ankle becomes too sore, monitor skin due to irritation, bruised appearance . Other Other application of lotion bilateral LE's: Cetaphil for skin care PT-OP-R Modalities Start: 07/03/19 10:30 Freq: Status: Active Protocol: Document 11/10/19 16:32 [facility] (Rec: 11/10/19 16:38 [facility] [id number]) Compression Pump Treatment Treatment Location Left Leg Pressure Amount (mmHg) (mmHG) 45 Inflation Time (Seconds) 10 Deflation Time (Seconds) 10 Treatment Duration (minutes) 30 Treatment Tolerance Good Treatment Comments patient right LE too large to fit even with manager corporate communications. Pump used during MLD to right LE. PT-OP-T Assessment and Plan Start: 07/03/19 10:30 Freq: Status: Active Protocol: Document 03/24/20 09:07 EDGAR (Rec: 03/24/20 09:14 [facility] [id number]) Physical Therapy Assessment Goals 4 Impairment weakness bilateral LE's Assisted Goal (LTG) Patient to demonstrate improvement in LE strength to at least 4/5 throughout 09/30/19: No progress due to Covid19 11/24/28: Goal progress, improvement in exercise tolerance 12/29/19: Had been making gains but due to recent exacerbation with cellulitis, activity level very limited again, unable to tolerate MMT. 03/22/20: Good day today, first time since cellulitis treatment appears to be increasing functional strength and activity tolerance LTG Duration 03/31/20 3 Impairment difficulty walking community distances Directory Operator Goal (LTG) Patient able to consistently ambulate community distances wearing appropriate compression to bilateral LEs 09/30/19: no progress due to patient on hold due to Covid19 11/25/19:min improvement 12/29/19: Had been making improvements until recent cellulitis with lymphedema exacerbation, legs heavy, minimal ability to ambulate 03/22/20: Starting to improve again s/p cellulitis treatment . LTG Duration 03/31/20 2 Impairment pain bilateral LE's Assisted Goal (LTG) Decrease pain to no greater than 3/10 with decrease in lymphedema. 09/30/19: no progress due to patient on hold due to Covid19 11/25/19: mild goal progress 12/29/19: again worsened due to recent cellulitis with increased pain 03/22/20: pain 4-5/10 LTG Duration 03/31/20 1 Impairment function-limiting lymphedema bilateral LE's Short Term Goal (STG) Educate patient in all aspects of lymphedema self-care including self-bandaging, skin care, self-MLD, exercise. 09/30/19: good goal progress 11/25/19: patient has now obtained Solaris ready-wrap compression alternatives with good tolerance, now able to be compliant with application of compression. Relies on children to help with application and with skin care due to obesity. 12/29/19: good goal progress with use of compression alternatives, though still awaiting delievery of appropriate size foot component right. STG Duration 01/28/20 Assisted Goal (LTG) Decrease edema to stable level to allow patient to be able to be fit with appropriate compression for home management. Patient to be independent with all components of self-care to include skin care, self MLD, exercise, and compression use. 11/25/19: good goal progress, especially with use of Solaris Ready-wrap 12/29/19: good goal progress though with adjustments needing to be made due to recent exacerbation 03/23/20: Continue to make modifications for best tolerance, ability of family to wrap. Patient has continued to refuse wrapping of knees and thighs but is ordering compression capris for more proximal compression to facilitate lymphatic flow. LTG Duration 03/31/20 Assessment Summary Assessment Best Le circumferential mesurements ever with patient leaving most of wraps on. Did note some skin irritation/ bruising anterior left ankle with patient instructed to remove Coban wrap by end of day if not sooner if remains tender. Physical Therapy Plan Frequency and Duration Frequency of Treatment 2x/wk Duration of Treatment 12 Plan of Care Start Date 12/29/19 Plan of Care End Date 03/31/20 Therapeutic Interventions Therapeutic Interventions Lymphedema Management,Manual Therapy,Patient/Caregiver Education,Self-Care/Home Management,Soft Tissue Mobilization,Therapeutic Exercises Next Visit Focus/Plan Next Note Type Treatment Note Next Visit Plan Continue lymphedema management . Patient to order vikram tights or understands we will need to use lymphedema wraps on thighs
--- NOTE | 2020-03-30 08:11 | PT-OP ANOTE ---
cancelled due to ill.
--- NOTE | 2020-04-01 10:36 | PT-OP ANOTE ---
cancelled due to ill
--- NOTE | 2020-04-06 14:24 | PT.OTN ---
Current Diagnoses Lymphedema, not elsewhere classified (04/06/20) Pain in right lower leg (04/06/20) Pain in left lower leg (04/06/20) Difficulty in walking, not elsewhere classified (04/06/20) Weakness (04/06/20) Physical Therapy Treatment Note PT-OP-A Visit Information Start: 07/03/19 10:30 Freq: Status: Active Protocol: Document 04/06/20 10:33 SAK (Rec: 04/06/20 10:58 SAK [id number]) Out-Patient Physical Therapy Visit Information Visit Information Visit Type Treatment Note Visit Start Time 10:32 Visit Stop Time 12:02 Total Visit Minutes 90 Visit Number 32 Evaluation Information Evaluation Date 11/25/19 PT-OP-B Current Condition Start: 07/03/19 10:30 Freq: Status: Active Protocol: Document 07/03/19 10:36 SAK (Rec: 07/03/19 12:00 SAK [id number]) Current Condition History of Current Condition Onset Date 1 1/2 years Current Complaints bilateral LE's History of Current Condition Prior to 1 1/2 years ago, legs would swell sometimes but it would go down, never stayed. Gradual worsening, swelling would stay longer periods of time, then got to the point didn't go away, just got worse and worse. States physician kept putting her on diuretics, not helpful. In ER in January for wound posterior right LE; continues with wound care department at [facility]. Has PE, on Warfarin. History of hernia surgery, appendix removal, 2 C sections , several ovarian cysts states noone wants to touch it. Right ovary removed due to a cyst. Compression stockings hard to get on and she states they don't seem to be helpful, not sure of compression level , doesn't have stockings with her this date. Very limited mobility, reports difficult to get to the bathroom at times. Prior Treatments and Tests diuretics compression stockings Treatment Goals Patient/Caregiver Goals Decrease swelling, be able to self-managel. Prior Functional Status Baseline Function- ADL's Independent Baseline Function- Mobility Independent Baseline Function- Gait independent no device Baseline Function- Recreation/Hobbies no limitations Current Functional Impairments (Reported) Functional Limitations- ADL's takes increased time Functional Limitations- Mobility/Gait decreased tolerance due to heaviness of her legs as well as pain Functional Limitations- Work/School unable Functional Limitations- Recreation/ limited to seated Hobbies Personal Factors Other Personal Factors That May Effect PMH: fibromyalgia Therapy/Recovery PT-OP-C Subjective Start: 07/03/19 10:30 Freq: Status: Active Protocol: Document 04/06/20 10:33 SAK (Rec: 04/06/20 10:58 SAK [id number]) OP-PT Subjective Patient Comments Patient Comments Patient reports sinus issues due to allergies, felt horrible last week. Is looking at a pair of thigh high compression stockings to order online; the vikram length tights she was previously looking at aren't available until April. Wants to show PT for approval. PT-OP-E Functional Tests Start: 07/03/19 10:30 Freq: Status: Active Protocol: Document 07/03/19 10:36 SAK (Rec: 07/06/19 14:41 [facility] [id number]) Functional Tests 2 Minute Walk Test Distance 75 ft PT-OP-J Posture/Palpation/Skin Start: 07/03/19 10:30 Freq: Status: Active Protocol: Document 07/03/19 10:36 SAK (Rec: 07/06/19 14:41 [facility] [id number]) Palpation Assessment Location bilateral LE Palpation Findings Edema,Soft Tissue Tightness Palpation Details Fibrosis bilateral distal LE's between knee and ankles, though difficult to fully assess due to Coban on right LE Skin Assessment Other Assessments Skin Assessment Comments Right LE covered with Coban from knee to foot by wound care, not removed this date Mild hemosideran staining noted on left lower leg. PT-OP-K Range of Motion Start: 07/03/19 10:30 Freq: Status: Active Protocol: Document 07/03/19 10:36 [facility] (Rec: 07/06/19 14:41 [facility] [id number]) Hip Goniometric Range of Motion Hip erik Hip ROM WFL Yes Knee Goniometric Range of Motion Knee erik Knee ROM WFL Yes Ankle and Foot Goniometric Range of Motion Ankle and Foot erik Ankle/Foot ROM WFL Yes PT-OP-M Strength Start: 07/03/19 10:30 Freq: Status: Active Protocol: Document 07/03/19 10:36 SAK (Rec: 07/06/19 14:41 [facility] [id number]) Hip Strength Hip Manual Muscle Testing erik Flexion (L2) 3- Fair- Extension (S1) 3- Fair- Abduction 3 Fair External Rotation 3+ Fair+ Internal Rotation 3+ Fair+ Knee Strength Knee Manual Muscle Testing erik Flexion (S2) 4- Good- Extension (L3) 4- Good- Ankle/Foot Strength Ankle and Foot Manual Muscle Testing erik Dorsiflexion (L4) 4 Good Plantarflexion (S1) 4 Good PT-OP-N Lymphedema Start: 07/03/19 10:30 Freq: Status: Active Protocol: Document 04/06/20 10:33 [facility] (Rec: 04/06/20 14:24 [facility] [id number]) Lymphedema Measurements Lower Extremity Circumference Measurements Left Affected MT Heads 24.5 cm Mid-foot 24.3 cm Medial Malleolus 35.8 cm 10 cm From Medial Malleolus 52.4 cm 20 cm From Medial Malleolus 66.2 cm 30 cm From Medial Malleolus 70.4 cm 40 cm From Medial Malleolus 81.6 cm Right Affected MT Heads 25.3 cm Mid-foot 24.9 cm Medial Malleolus 36.2 cm 10 cm From Medial Malleolus 60 cm 20 cm From Medial Malleolus 75.5 cm 30 cm From Medial Malleolus 74.9 cm 40 cm From Medial Malleolus 80.5 cm PT-OP-Q Treatments Start: 07/03/19 10:30 Freq: Status: Active Protocol: Document 04/06/20 10:33 [facility] (Rec: 04/06/20 14:24 [facility] [id number]) Lymphedema Treatment Manual Lymphatic Drainage Location Erik LE's Lymphedema Wrapping Body Location erik LE's Materials toe wraps, erik gauze wrap Erik: 3 Coban and size F tubigrip for foot ankle compression , Size J tubigrip left lower leg and Size K tubigrip right lower leg Sequential Lymphedema Exercises Location bilateral LE's Comments 20 reps ea Compression Garment Assessment Compression Garment Assessment Details Compression stockings patient looking at are 20-30 mmHg; advised patient 30-40 mm HG would be even better, but patient unable to find off the shelf at that compression level. The 20-30 may be better tolerated but not as effective. Other Other application of lotion bilateral LE's: Cetaphil for skin care PT-OP-R Modalities Start: 07/03/19 10:30 Freq: Status: Active Protocol: Document 11/10/19 16:32 SAK (Rec: 11/10/19 16:38 [facility] [id number]) Compression Pump Treatment Treatment Location Left Leg Pressure Amount (mmHg) (mmHG) 45 Inflation Time (Seconds) 10 Deflation Time (Seconds) 10 Treatment Duration (minutes) 30 Treatment Tolerance Good Treatment Comments patient right LE too large to fit even with senior research engineer. Pump used during MLD to right LE. PT-OP-T Assessment and Plan Start: 07/03/19 10:30 Freq: Status: Active Protocol: Document 04/06/20 10:33 [facility] (Rec: 04/06/20 10:58 [facility] [id number]) Physical Therapy Assessment Goals 4 Impairment weakness bilateral LE's [facility] Goal (LTG) Patient to demonstrate improvement in LE strength to at least 4/5 throughout 09/30/19: No progress due to Covid19 11/24/28: Goal progress, improvement in exercise tolerance 12/29/19: Had been making gains but due to recent exacerbation with cellulitis, activity level very limited again, unable to tolerate MMT. 03/22/20: Good day today, first time since cellulitis treatment appears to be increasing functional strength and activity tolerance LTG Duration 03/31/20 3 Impairment difficulty walking community distances [facility] Goal (LTG) Patient able to consistently ambulate community distances wearing appropriate compression to bilateral LEs 09/30/19: no progress due to patient on hold due to Covid19 11/25/19:min improvement 12/29/19: Had been making improvements until recent cellulitis with lymphedema exacerbation, legs heavy, minimal ability to ambulate 03/22/20: Starting to improve again s/p cellulitis treatment . LTG Duration 03/31/20 2 Impairment pain bilateral LE's [facility] Goal (LTG) Decrease pain to no greater than 3/10 with decrease in lymphedema. 09/30/19: no progress due to patient on hold due to Covid19 11/25/19: mild goal progress 12/29/19: again worsened due to recent cellulitis with increased pain 03/22/20: pain 4-5/10 LTG Duration 03/31/20 1 Impairment function-limiting lymphedema bilateral LE's Short Term Goal (STG) Educate patient in all aspects of lymphedema self-care including self-bandaging, skin care, self-MLD, exercise. 09/30/19: good goal progress 11/25/19: patient has now obtained Solaris ready-wrap compression alternatives with good tolerance, now able to be compliant with application of compression. Relies on children to help with application and with skin care due to obesity. 12/29/19: good goal progress with use of compression alternatives, though still awaiting delievery of appropriate size foot component right. STG Duration 01/28/20 [facility] Goal (LTG) Decrease edema to stable level to allow patient to be able to be fit with appropriate compression for home management. Patient to be independent with all components of self-care to include skin care, self MLD, exercise, and compression use. 11/25/19: good goal progress, especially with use of Solaris Ready-wrap 12/29/19: good goal progress though with adjustments needing to be made due to recent exacerbation 03/23/20: Continue to make modifications for best tolerance, ability of family to wrap. Patient has continued to refuse wrapping of knees and thighs but is ordering compression capris for more proximal compression to facilitate lymphatic flow. LTG Duration 03/31/20 Assessment Summary Assessment Patient measurements bilateral LE's increased after week with no PT. Wound remains closed, No redness. No recumbent elliptical due to patient not feeling well. Physical Therapy Plan Frequency and Duration Frequency of Treatment 2x/wk Duration of Treatment 12 Plan of Care Start Date 12/29/19 Plan of Care End Date 03/31/20 Therapeutic Interventions Therapeutic Interventions Lymphedema Management,Manual Therapy,Patient/Caregiver Education,Self-Care/Home Management,Soft Tissue Mobilization,Therapeutic Exercises Next Visit Focus/Plan Next Note Type Treatment Note Next Visit Plan Patient to order thigh-high compression stockings today. Evaluate fit if received. Continue lymphedema management . Resume recumbent elliptical if tolerated.
--- NOTE | 2020-04-08 15:46 | PT.OTN ---
Current Diagnoses Lymphedema, not elsewhere classified (04/08/20) Pain in right lower leg (04/08/20) Pain in left lower leg (04/08/20) Difficulty in walking, not elsewhere classified (04/08/20) Weakness (04/08/20) Physical Therapy Treatment Note PT-OP-A Visit Information Start: 07/03/19 10:30 Freq: Status: Active Protocol: Document 04/08/20 10:31 SAK (Rec: 04/08/20 10:44 SAK [id number]) Out-Patient Physical Therapy Visit Information Visit Information Visit Type Treatment Note Visit Start Time 10:32 Visit Stop Time 12:02 Total Visit Minutes 88 Visit Number 33 Evaluation Information Evaluation Date 11/25/19 PT-OP-B Current Condition Start: 07/03/19 10:30 Freq: Status: Active Protocol: Document 07/03/19 10:36 SAK (Rec: 07/03/19 12:00 SAK [id number]) Current Condition History of Current Condition Onset Date 1 1/2 years Current Complaints bilateral LE's History of Current Condition Prior to 1 1/2 years ago, legs would swell sometimes but it would go down, never stayed. Gradual worsening, swelling would stay longer periods of time, then got to the point didn't go away, just got worse and worse. States physician kept putting her on diuretics, not helpful. In ER in January for wound posterior right LE; continues with wound care department at [facility]. Has PE, on Warfarin. History of hernia surgery, appendix removal, 2 C sections , several ovarian cysts states noone wants to touch it. Right ovary removed due to a cyst. Compression stockings hard to get on and she states they don't seem to be helpful, not sure of compression level , doesn't have stockings with her this date. Very limited mobility, reports difficult to get to the bathroom at times. Prior Treatments and Tests diuretics compression stockings Treatment Goals Patient/Caregiver Goals Decrease swelling, be able to self-managel. Prior Functional Status Baseline Function- ADL's Independent Baseline Function- Mobility Independent Baseline Function- Gait independent no device Baseline Function- Recreation/Hobbies no limitations Current Functional Impairments (Reported) Functional Limitations- ADL's takes increased time Functional Limitations- Mobility/Gait decreased tolerance due to heaviness of her legs as well as pain Functional Limitations- Work/School unable Functional Limitations- Recreation/ limited to seated Hobbies Personal Factors Other Personal Factors That May Effect PMH: fibromyalgia Therapy/Recovery PT-OP-C Subjective Start: 07/03/19 10:30 Freq: Status: Active Protocol: Document 04/08/20 10:31 SAK (Rec: 04/08/20 10:44 SAK [id number]) OP-PT Subjective Patient Comments Patient Comments Just was at wound care, has been discharged wound healed. Weight decreased by 6 lbs. No longer taking antibiotics. Unsure about her mother's cancer treatment and surgery, may have to cancel some appointments. PT-OP-E Functional Tests Start: 07/03/19 10:30 Freq: Status: Active Protocol: Document 07/03/19 10:36 SAK (Rec: 07/06/19 14:41 [facility] [id number]) Functional Tests 2 Minute Walk Test Distance 75 ft PT-OP-J Posture/Palpation/Skin Start: 07/03/19 10:30 Freq: Status: Active Protocol: Document 07/03/19 10:36 SAK (Rec: 07/06/19 14:41 [facility] [id number]) Palpation Assessment Location bilateral LE Palpation Findings Edema,Soft Tissue Tightness Palpation Details Fibrosis bilateral distal LE's between knee and ankles, though difficult to fully assess due to Coban on right LE Skin Assessment Other Assessments Skin Assessment Comments Right LE covered with Coban from knee to foot by wound care, not removed this date Mild hemosideran staining noted on left lower leg. PT-OP-K Range of Motion Start: 07/03/19 10:30 Freq: Status: Active Protocol: Document 07/03/19 10:36 SAK (Rec: 07/06/19 14:41 [facility] [id number]) Hip Goniometric Range of Motion Hip erik Hip ROM WFL Yes Knee Goniometric Range of Motion Knee erik Knee ROM WFL Yes Ankle and Foot Goniometric Range of Motion Ankle and Foot erik Ankle/Foot ROM WFL Yes PT-OP-M Strength Start: 07/03/19 10:30 Freq: Status: Active Protocol: Document 07/03/19 10:36 SAK (Rec: 07/06/19 14:41 [facility] [id number]) Hip Strength Hip Manual Muscle Testing erik Flexion (L2) 3- Fair- Extension (S1) 3- Fair- Abduction 3 Fair External Rotation 3+ Fair+ Internal Rotation 3+ Fair+ Knee Strength Knee Manual Muscle Testing erik Flexion (S2) 4- Good- Extension (L3) 4- Good- Ankle/Foot Strength Ankle and Foot Manual Muscle Testing erik Dorsiflexion (L4) 4 Good Plantarflexion (S1) 4 Good PT-OP-N Lymphedema Start: 07/03/19 10:30 Freq: Status: Active Protocol: Document 04/06/20 10:33 SAK (Rec: 04/06/20 14:24 [facility] [id number]) Lymphedema Measurements Lower Extremity Circumference Measurements Left Affected MT Heads 24.5 cm Mid-foot 24.3 cm Medial Malleolus 35.8 cm 10 cm From Medial Malleolus 52.4 cm 20 cm From Medial Malleolus 66.2 cm 30 cm From Medial Malleolus 70.4 cm 40 cm From Medial Malleolus 81.6 cm Right Affected MT Heads 25.3 cm Mid-foot 24.9 cm Medial Malleolus 36.2 cm 10 cm From Medial Malleolus 60 cm 20 cm From Medial Malleolus 75.5 cm 30 cm From Medial Malleolus 74.9 cm 40 cm From Medial Malleolus 80.5 cm PT-OP-Q Treatments Start: 07/03/19 10:30 Freq: Status: Active Protocol: Document 04/08/20 10:31 [facility] (Rec: 04/08/20 10:44 [facility] [id number]) Cardio Equipment Recumbent Stepper (Sci-Fit) Resistance 1 Seat Position 12 Other stopped due to fatigue, pain. 5 min 35 sec Lymphedema Treatment Manual Lymphatic Drainage Location Erik LE's Lymphedema Wrapping Body Location erik LE's Materials toe wraps, erik gauze wrap Erik: 3 Coban and size F tubigrip for foot ankle compression , Size J tubigrip left lower leg and Size K tubigrip right lower leg Sequential Lymphedema Exercises Location bilateral LE's Comments 20 reps ea Compression Garment Assessment Compression Garment Assessment Details Arrived at patient's home after she left for her appointment today, should be waiting for her when she returns home. Other Other application of lotion bilateral LE's: Cetaphil for skin care PT-OP-R Modalities Start: 07/03/19 10:30 Freq: Status: Active Protocol: Document 11/10/19 16:32 EDGAR (Rec: 11/10/19 16:38 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 Pump used during MLD to right LE. PT-OP-T Assessment and Plan Start: 07/03/19 10:30 Freq: Status: Active Protocol: Document 04/08/20 10:31 [facility] (Rec: 04/08/20 10:44 [facility] [id number]) Physical Therapy Assessment Goals 4 Impairment weakness bilateral LE's Prison Goal (LTG) Patient to demonstrate improvement in LE strength to at least 4/5 throughout 09/30/19: No progress due to Covid19 11/24/28: Goal progress, improvement in exercise tolerance 12/29/19: Had been making gains but due to recent exacerbation with cellulitis, activity level very limited again, unable to tolerate MMT. 03/22/20: Good day today, first time since cellulitis treatment appears to be increasing functional strength and activity tolerance 04/08/20: ankles 5/5, knees 4- /5, hips 3-/5. Good progress LTG Duration 07/08/19 3 Impairment difficulty walking community distances Apartment Locator Goal (LTG) Patient able to consistently ambulate community distances wearing appropriate compression to bilateral LEs 09/30/19: no progress due to patient on hold due to Covid19 11/25/19:min improvement 12/29/19: Had been making improvements until recent cellulitis with lymphedema exacerbation, legs heavy, minimal ability to ambulate 03/22/20: Starting to improve again s/p cellulitis treatment . 04/08/20: Able to walk 75' without rest using single point cane today, improving pace, no need for wheelchair as previously LTG Duration 07/08/19 2 Impairment pain bilateral LE's Prison Goal (LTG) Decrease pain to no greater than 3/10 with decrease in lymphedema. 09/30/19: no progress due to patient on hold due to Covid19 11/25/19: mild goal progress 12/29/19: again worsened due to recent cellulitis with increased pain 03/22/20: pain 4-5/10 04/08/20: pain persists at 4-5 /10 LTG Duration 07/08/19 1 Impairment function-limiting lymphedema bilateral LE's Short Term Goal (STG) Educate patient in all aspects of lymphedema self-care including self-bandaging, skin care, self-MLD, exercise. 09/30/19: good goal progress 11/25/19: patient has now obtained Solaris ready-wrap compression alternatives with good tolerance, now able to be compliant with application of compression. Relies on children to help with application and with skin care due to obesity. 12/29/19: good goal progress with use of compression alternatives, though still awaiting delievery of appropriate size foot component right. STG Duration 06/06/19 Apartment Locator Goal (LTG) Decrease edema to stable level to allow patient to be able to be fit with appropriate compression for home management. Patient to be independent with all components of self-care to include skin care, self MLD, exercise, and compression use. 11/25/19: good goal progress, especially with use of Solaris Ready-wrap 12/29/19: good goal progress though with adjustments needing to be made due to recent exacerbation 03/23/20: Continue to make modifications for best tolerance, ability of family to wrap. Patient has continued to refuse wrapping of knees and thighs but is ordering compression capris for more proximal compression to facilitate lymphatic flow. 04/08/20: Wound has healed right LE, circumferential measurements decreased. Has compression alternative wraps for toes to knees, but needs proximal compression as well, has thigh-high compression stockings that were arriving today. Unable to obtain compression capris yet due to supply chain issues LTG Duration 07/08/19 Assessment Summary Assessment Decreased circumferential measurements bilateral LE's, improved gait, decrease in weight by 6#. Skin integrity improved. Will try thigh-high compression stockings that arrived today. Still needs compression higher into upper thigh and abdomen. Patient continues to benefit from skilled PT for lymphedema management and strengthening. Physical Therapy Plan Frequency and Duration Frequency of Treatment 20 visits Duration of Treatment 12 weeks Plan of Care Start Date 04/06/20 Plan of Care End Date 07/07/20 Therapeutic Interventions Therapeutic Interventions Lymphedema Management,Manual Therapy,Patient/Caregiver Education,Self-Care/Home Management,Soft Tissue Mobilization,Therapeutic Exercises Next Visit Focus/Plan Next Note Type Treatment Note Next Visit Plan Assess fit of compression stockings, progress ther ex, lymphedema management.
--- NOTE | 2020-04-08 15:46 | PT.OPPOC ---
Physical, Occupational & Speech Therapy At [facility] Current Diagnoses Lymphedema, not elsewhere classified (04/08/20) Pain in right lower leg (04/08/20) Pain in left lower leg (04/08/20) Difficulty in walking, not elsewhere classified (04/08/20) Weakness (04/08/20) Visit Care Team Role Provider Type Ivy Crystal DO Primary Care Provider Physician Specialty: Family Practice Address: [address] [place] [address], [address], [address] Email: [email or web address] Chidi Roblero MD Attending Provider Physician Referring Provider Specialty: Wound Care Address: [address] [place] [address], [address] Email: [email or web address] Plan Of Care PT-OP-T Assessment and Plan Start: 07/03/19 10:30 Freq: Status: Active Protocol: Document 04/08/20 10:31 SAK (Rec: 04/08/20 10:44 [facility] [id number]) Physical Therapy Assessment Goals 4 Impairment weakness bilateral LE's Custodial Goal (LTG) Patient to demonstrate improvement in LE strength to at least 4/5 throughout 09/30/19: No progress due to Covid19 11/24/28: Goal progress, improvement in exercise tolerance 12/29/19: Had been making gains but due to recent exacerbation with cellulitis, activity level very limited again, unable to tolerate MMT. 03/22/20: Good day today, first time since cellulitis treatment appears to be increasing functional strength and activity tolerance 04/08/20: ankles 5/5, knees 4- /5, hips 3-/5. Good progress LTG Duration 07/08/19 3 Impairment difficulty walking community distances Director Hardware Goal (LTG) Patient able to consistently ambulate community distances wearing appropriate compression to bilateral LEs 09/30/19: no progress due to patient on hold due to Covid19 11/25/19:min improvement 12/29/19: Had been making improvements until recent cellulitis with lymphedema exacerbation, legs heavy, minimal ability to ambulate 03/22/20: Starting to improve again s/p cellulitis treatment . 04/08/20: Able to walk 75' without rest using single point cane today, improving pace, no need for wheelchair as previously LTG Duration 07/08/19 2 Impairment pain bilateral LE's Custodial Goal (LTG) Decrease pain to no greater than 3/10 with decrease in lymphedema. 09/30/19: no progress due to patient on hold due to Covid19 11/25/19: mild goal progress 12/29/19: again worsened due to recent cellulitis with increased pain 03/22/20: pain 4-5/10 04/08/20: pain persists at 4-5 /10 LTG Duration 07/08/19 1 Impairment function-limiting lymphedema bilateral LE's Short Term Goal (STG) Educate patient in all aspects of lymphedema self-care including self-bandaging, skin care, self-MLD, exercise. 09/30/19: good goal progress 11/25/19: patient has now obtained Solaris ready-wrap compression alternatives with good tolerance, now able to be compliant with application of compression. Relies on children to help with application and with skin care due to obesity. 12/29/19: good goal progress with use of compression alternatives, though still awaiting delievery of appropriate size foot component right. STG Duration 06/06/19 Custodial Goal (LTG) Decrease edema to stable level to allow patient to be able to be fit with appropriate compression for home management. Patient to be independent with all components of self-care to include skin care, self MLD, exercise, and compression use. 11/25/19: good goal progress, especially with use of Solaris Ready-wrap 12/29/19: good goal progress though with adjustments needing to be made due to recent exacerbation 03/23/20: Continue to make modifications for best tolerance, ability of family to wrap. Patient has continued to refuse wrapping of knees and thighs but is ordering compression capris for more proximal compression to facilitate lymphatic flow. 04/08/20: Wound has healed right LE, circumferential measurements decreased. Has compression alternative wraps for toes to knees, but needs proximal compression as well, has thigh-high compression stockings that were arriving today. Unable to obtain compression capris yet due to supply chain issues LTG Duration 07/08/19 Assessment Summary Assessment Decreased circumferential measurements bilateral LE's, improved gait, decrease in weight by 6#. Skin integrity improved. Will try thigh-high compression stockings that arrived today. Still needs compression higher into upper thigh and abdomen. Patient continues to benefit from skilled PT for lymphedema management and strengthening. Physical Therapy Plan Frequency and Duration Frequency of Treatment 20 visits Duration of Treatment 12 weeks Plan of Care Start Date 04/06/20 Plan of Care End Date 07/07/20 Therapeutic Interventions Therapeutic Interventions Lymphedema Management,Manual Therapy,Patient/Caregiver Education,Self-Care/Home Management,Soft Tissue Mobilization,Therapeutic Exercises Next Visit Focus/Plan Next Note Type Treatment Note Next Visit Plan Assess fit of compression stockings, progress ther ex, lymphedema management. Plan of Care Dates Plan of Care Start Date 04/06/20 Plan of Care End Date 07/07/20 Electronically Signed by: Julia Herrera, PT 04/08/20 [id number] Please Sign and Return: I have reviewed this Plan of Care and certify that the skilled therapy services above are required to meet the patient?s needs. Physician Signature Date Printed Name and Credentials Clinical Instructor Signature Printed Name and Credentials
--- NOTE | 2020-04-12 14:28 | PT.OTN ---
Current Diagnoses Lymphedema, not elsewhere classified (04/12/20) Pain in right lower leg (04/12/20) Pain in left lower leg (04/12/20) Difficulty in walking, not elsewhere classified (04/12/20) Weakness (04/12/20) Physical Therapy Treatment Note PT-OP-A Visit Information Start: 07/03/19 10:30 Freq: Status: Active Protocol: Document 04/12/20 10:39 SAK (Rec: 04/12/20 10:43 SAK [id number]) Out-Patient Physical Therapy Visit Information Visit Information Visit Type Treatment Note Visit Start Time 10:32 Visit Stop Time 12:02 Total Visit Minutes 90 Visit Number 34 PT-OP-B Current Condition Start: 07/03/19 10:30 Freq: Status: Active Protocol: Document 07/03/19 10:36 SAK (Rec: 07/03/19 12:00 SAK [id number]) Current Condition History of Current Condition Onset Date 1 1/2 years Current Complaints bilateral LE's History of Current Condition Prior to 1 1/2 years ago, legs would swell sometimes but it would go down, never stayed. Gradual worsening, swelling would stay longer periods of time, then got to the point didn't go away, just got worse and worse. States physician kept putting her on diuretics, not helpful. In ER in January for wound posterior right LE; continues with wound care department at [facility]. Has PE, on Warfarin. History of hernia surgery, appendix removal, 2 C sections , several ovarian cysts states noone wants to touch it. Right ovary removed due to a cyst. Compression stockings hard to get on and she states they don't seem to be helpful, not sure of compression level , doesn't have stockings with her this date. Very limited mobility, reports difficult to get to the bathroom at times. Prior Treatments and Tests diuretics compression stockings Treatment Goals Patient/Caregiver Goals Decrease swelling, be able to self-managel. Prior Functional Status Baseline Function- ADL's Independent Baseline Function- Mobility Independent Baseline Function- Gait independent no device Baseline Function- Recreation/Hobbies no limitations Current Functional Impairments (Reported) Functional Limitations- ADL's takes increased time Functional Limitations- Mobility/Gait decreased tolerance due to heaviness of her legs as well as pain Functional Limitations- Work/School unable Functional Limitations- Recreation/ limited to seated Hobbies Personal Factors Other Personal Factors That May Effect PMH: fibromyalgia Therapy/Recovery PT-OP-C Subjective Start: 07/03/19 10:30 Freq: Status: Active Protocol: Document 04/12/20 10:39 SAK (Rec: 04/12/20 10:43 SAK [id number]) OP-PT Subjective Patient Comments Patient Comments Compression stockings able to get did not fit well, painful, increased swelling in ankles, unable to wear. States feeling frustrated. PT-OP-E Functional Tests Start: 07/03/19 10:30 Freq: Status: Active Protocol: Document 07/03/19 10:36 SAK (Rec: 07/06/19 14:41 SAK [id number]) Functional Tests 2 Minute Walk Test Distance 75 ft PT-OP-J Posture/Palpation/Skin Start: 07/03/19 10:30 Freq: Status: Active Protocol: Document 07/03/19 10:36 SAK (Rec: 07/06/19 14:41 SAK [id number]) Palpation Assessment Location bilateral LE Palpation Findings Edema,Soft Tissue Tightness Palpation Details Fibrosis bilateral distal LE's between knee and ankles, though difficult to fully assess due to Coban on right LE Skin Assessment Other Assessments Skin Assessment Comments Right LE covered with Coban from knee to foot by wound care, not removed this date Mild hemosideran staining noted on left lower leg. PT-OP-K Range of Motion Start: 07/03/19 10:30 Freq: Status: Active Protocol: Document 07/03/19 10:36 SAK (Rec: 07/06/19 14:41 SAK [id number]) Hip Goniometric Range of Motion Hip erik Hip ROM WFL Yes Knee Goniometric Range of Motion Knee erik Knee ROM WFL Yes Ankle and Foot Goniometric Range of Motion Ankle and Foot erik Ankle/Foot ROM WFL Yes PT-OP-M Strength Start: 07/03/19 10:30 Freq: Status: Active Protocol: Document 07/03/19 10:36 SAK (Rec: 07/06/19 14:41 [facility] [id number]) Hip Strength Hip Manual Muscle Testing erik Flexion (L2) 3- Fair- Extension (S1) 3- Fair- Abduction 3 Fair External Rotation 3+ Fair+ Internal Rotation 3+ Fair+ Knee Strength Knee Manual Muscle Testing erik Flexion (S2) 4- Good- Extension (L3) 4- Good- Ankle/Foot Strength Ankle and Foot Manual Muscle Testing erik Dorsiflexion (L4) 4 Good Plantarflexion (S1) 4 Good PT-OP-N Lymphedema Start: 07/03/19 10:30 Freq: Status: Active Protocol: Document 04/06/20 10:33 SAK (Rec: 04/06/20 14:24 SAK [id number]) Lymphedema Measurements Lower Extremity Circumference Measurements Left Affected MT Heads 24.5 cm Mid-foot 24.3 cm Medial Malleolus 35.8 cm 10 cm From Medial Malleolus 52.4 cm 20 cm From Medial Malleolus 66.2 cm 30 cm From Medial Malleolus 70.4 cm 40 cm From Medial Malleolus 81.6 cm Right Affected MT Heads 25.3 cm Mid-foot 24.9 cm Medial Malleolus 36.2 cm 10 cm From Medial Malleolus 60 cm 20 cm From Medial Malleolus 75.5 cm 30 cm From Medial Malleolus 74.9 cm 40 cm From Medial Malleolus 80.5 cm PT-OP-Q Treatments Start: 07/03/19 10:30 Freq: Status: Active Protocol: Document 04/12/20 10:39 SAK (Rec: 04/12/20 10:43 SAK [id number]) Cardio Equipment Recumbent Stepper (Sci-Fit) Duration (Minutes) 6 Resistance 1 Seat Position 12 Other stopped due to fatigue, pain. 5 min 35 sec Lymphedema Treatment Manual Lymphatic Drainage Comments Not done due to time constraints; doing more extensive LE wrapping Lymphedema Wrapping Body Location erik LE's Materials toe wraps, erik gauze wrap Erik: 3 Coban for foot ankle compression ,Size J tubigrip left lower leg and Size K tubigrip right lower leg, plus on right Artiflex and Comprilan (3 12 cm rolls) knee to upper thigh for further facilitation of lymphatic clearing. Sequential Lymphedema Exercises Location bilateral LE's Comments 20 reps ea Compression Garment Assessment Compression Garment Assessment Details Patient advised to consult further with [facility] or try [facility] to consult regarding compression for thighs and potentially abdomen as recommended by PT. Other Other application of lotion bilateral LE's: Cetaphil for skin care PT-OP-R Modalities Start: 07/03/19 10:30 Freq: Status: Active Protocol: Document 11/10/19 16:32 [facility] (Rec: 11/10/19 16:38 [facility] [id number]) Compression Pump Treatment Treatment Location Left Leg Pressure Amount (mmHg) (mmHG) 45 Inflation Time (Seconds) 10 Deflation Time (Seconds) 10 Treatment Duration (minutes) 30 Treatment Tolerance Good Treatment Comments patient right LE too large to fit even with finishing machine tender. Pump used during MLD to right LE. PT-OP-T Assessment and Plan Start: 07/03/19 10:30 Freq: Status: Active Protocol: Document 04/12/20 10:39 [facility] (Rec: 04/12/20 10:43 [facility] [id number]) Physical Therapy Assessment Goals 4 Impairment weakness bilateral LE's Senior Care Goal (LTG) Patient to demonstrate improvement in LE strength to at least 4/5 throughout 09/30/19: No progress due to Covid19 11/24/28: Goal progress, improvement in exercise tolerance 12/29/19: Had been making gains but due to recent exacerbation with cellulitis, activity level very limited again, unable to tolerate MMT. 03/22/20: Good day today, first time since cellulitis treatment appears to be increasing functional strength and activity tolerance 04/08/20: ankles 5/5, knees 4- /5, hips 3-/5. Good progress LTG Duration 07/08/19 3 Impairment difficulty walking community distances Interpreter Deaf Goal (LTG) Patient able to consistently ambulate community distances wearing appropriate compression to bilateral LEs 09/30/19: no progress due to patient on hold due to Covid19 11/25/19:min improvement 12/29/19: Had been making improvements until recent cellulitis with lymphedema exacerbation, legs heavy, minimal ability to ambulate 03/22/20: Starting to improve again s/p cellulitis treatment . 04/08/20: Able to walk 75' without rest using single point cane today, improving pace, no need for wheelchair as previously LTG Duration 07/08/19 2 Impairment pain bilateral LE's Interpreter Deaf Goal (LTG) Decrease pain to no greater than 3/10 with decrease in lymphedema. 09/30/19: no progress due to patient on hold due to Covid19 11/25/19: mild goal progress 12/29/19: again worsened due to recent cellulitis with increased pain 03/22/20: pain 4-5/10 04/08/20: pain persists at 4-5 /10 LTG Duration 07/08/19 1 Impairment function-limiting lymphedema bilateral LE's Short Term Goal (STG) Educate patient in all aspects of lymphedema self-care including self-bandaging, skin care, self-MLD, exercise. 09/30/19: good goal progress 11/25/19: patient has now obtained Solaris ready-wrap compression alternatives with good tolerance, now able to be compliant with application of compression. Relies on children to help with application and with skin care due to obesity. 12/29/19: good goal progress with use of compression alternatives, though still awaiting delievery of appropriate size foot component right. STG Duration 06/06/19 Interpreter Deaf Goal (LTG) Decrease edema to stable level to allow patient to be able to be fit with appropriate compression for home management. Patient to be independent with all components of self-care to include skin care, self MLD, exercise, and compression use. 11/25/19: good goal progress, especially with use of Solaris Ready-wrap 12/29/19: good goal progress though with adjustments needing to be made due to recent exacerbation 03/23/20: Continue to make modifications for best tolerance, ability of family to wrap. Patient has continued to refuse wrapping of knees and thighs but is ordering compression capris for more proximal compression to facilitate lymphatic flow. 04/08/20: Wound has healed right LE, circumferential measurements decreased. Has compression alternative wraps for toes to knees, but needs proximal compression as well, has thigh-high compression stockings that were arriving today. Unable to obtain compression capris yet due to supply chain issues LTG Duration 07/08/19 Assessment Summary Assessment Poor fit of thigh high compression stockings as anticipated, with circumferential measurements increased bilaterally all measurements except feet. Patient finally agreeable to being wrapped with combination compression alternatives and short stretch bandages toes to thighs on right. If goes well, will do trial on left as well. Physical Therapy Plan Frequency and Duration Frequency of Treatment 20 visits Duration of Treatment 12 weeks Plan of Care Start Date 04/06/20 Plan of Care End Date 07/07/20 Therapeutic Interventions Therapeutic Interventions Lymphedema Management,Manual Therapy,Patient/Caregiver Education,Self-Care/Home Management,Soft Tissue Mobilization,Therapeutic Exercises Next Visit Focus/Plan Next Note Type Treatment Note Next Visit Plan Assess tolerance to wrapping above the knee. Patient to consult with [facility] or [facility] regarding knee and above knee compression. progress ther ex, lymphedema management.
--- NOTE | 2020-04-15 10:39 | PT-OP ANOTE ---
Cancelled due to mother's illness (cancer)
--- NOTE | 2020-08-23 15:03 | PT.OPDS ---
Current Diagnoses Lymphedema, not elsewhere classified (04/12/20) Pain in right lower leg (04/12/20) Pain in left lower leg (04/12/20) Difficulty in walking, not elsewhere classified (04/12/20) Weakness (04/12/20) Visit Care Team Role Provider Type Ivy Crystal DO Primary Care Provider Physician Specialty: Family Practice Address: [address] [place] [address], [address], [place], [address] Email: [email or web address] Chidi Roblero MD Attending Provider Physician Referring Provider Specialty: Wound Care Address: [address] [place] [address], [place], [address] Email: [email or web address] Visit Number Visit Number [id number] Discharge Summary PT-OP-B Current Condition Start: 07/03/19 10:30 Freq: Status: Active Protocol: Document 07/03/19 10:36 SAK (Rec: 07/03/19 12:00 SAK [id number]) Current Condition History of Current Condition Onset Date 1 1/2 years Current Complaints bilateral LE's History of Current Condition Prior to 1 1/2 years ago, legs would swell sometimes but it would go down, never stayed. Gradual worsening, swelling would stay longer periods of time, then got to the point didn't go away, just got worse and worse. [facility] physician kept putting her on diuretics, not helpful. In ER in January for wound posterior right LE; continues with wound care department at [facility]. Has PE, on Warfarin. History of hernia surgery, appendix removal, 2 C sections , several ovarian cysts states noone wants to touch it. Right ovary removed due to a cyst. Compression stockings hard to get on and she states they don't seem to be helpful, not sure of compression level , doesn't have stockings with her this date. Very limited mobility, reports difficult to get to the bathroom at times. Prior Treatments and Tests diuretics compression stockings Treatment Goals Patient/Caregiver Goals Decrease swelling, be able to self-managel. Prior Functional Status Baseline Function- ADL's Independent Baseline Function- Mobility Independent Baseline Function- Gait independent no device Baseline Function- Recreation/Hobbies no limitations Current Functional Impairments (Reported) Functional Limitations- ADL's takes increased time Functional Limitations- Mobility/Gait decreased tolerance due to heaviness of her legs as well as pain Functional Limitations- Work/School unable Functional Limitations- Recreation/ limited to seated Hobbies Personal Factors Other Personal Factors That May Effect PMH: fibromyalgia Therapy/Recovery PT-OP-C Subjective Start: 07/03/19 10:30 Freq: Status: Active Protocol: Document 04/12/20 10:39 SAK (Rec: 04/12/20 10:43 SAK [id number]) OP-PT Subjective Patient Comments Patient Comments Compression stockings able to get did not fit well, painful, increased swelling in ankles, unable to wear. States feeling frustrated. PT-OP-E Functional Tests Start: 07/03/19 10:30 Freq: Status: Active Protocol: Document 07/03/19 10:36 SAK (Rec: 07/06/19 14:41 [facility] [id number]) Functional Tests 2 Minute Walk Test Distance 75 ft PT-OP-J Posture/Palpation/Skin Start: 07/03/19 10:30 Freq: Status: Active Protocol: Document 07/03/19 10:36 SAK (Rec: 07/06/19 14:41 [facility] [id number]) Palpation Assessment Location bilateral LE Palpation Findings Edema,Soft Tissue Tightness Palpation Details Fibrosis bilateral distal LE's between knee and ankles, though difficult to fully assess due to [place] on right LE Skin Assessment Other Assessments Skin Assessment Comments Right LE covered with [place] from knee to foot by wound care, not removed this date Mild hemosideran staining noted on left lower leg. PT-OP-K Range of Motion Start: 07/03/19 10:30 Freq: Status: Active Protocol: Document 07/03/19 10:36 SAK (Rec: 07/06/19 14:41 [facility] [id number]) Hip Goniometric Range of Motion Hip ernestine Hip ROM WFL Yes Knee Goniometric Range of Motion Knee ernestine Knee ROM WFL Yes Ankle and Foot Goniometric Range of Motion Ankle and Foot ernestine Ankle/Foot ROM WFL Yes PT-OP-M Strength Start: 07/03/19 10:30 Freq: Status: Active Protocol: Document 07/03/19 10:36 SAK (Rec: 07/06/19 14:41 SAK [id number]) Hip Strength Hip Manual Muscle Testing ernestine Flexion (L2) 3- Fair- Extension (S1) 3- Fair- Abduction 3 Fair External Rotation 3+ Fair+ Internal Rotation 3+ Fair+ Knee Strength Knee Manual Muscle Testing ernestine Flexion (S2) 4- Good- Extension (L3) 4- Good- Ankle/Foot Strength Ankle and Foot Manual Muscle Testing ernestine Dorsiflexion (L4) 4 Good Plantarflexion (S1) 4 Good PT-OP-N Lymphedema Start: 07/03/19 10:30 Freq: Status: Active Protocol: Document 04/12/20 10:39 [facility] (Rec: 04/12/20 14:33 [facility] [id number]) Lymphedema Measurements Lower Extremity Circumference Measurements Left Affected MT Heads 23.7 cm Mid-foot 24.2 cm Medial Malleolus 37.4 cm 10 cm From Medial Malleolus 44.7 cm 20 cm From Medial Malleolus 67.5 cm 30 cm From Medial Malleolus 71.8 cm 40 cm From Medial Malleolus 81.8 cm Right Affected [place] 24.8 cm Mid-foot 25.3 cm Medial Malleolus 36.1 cm 10 cm From Medial Malleolus 56.5 cm 20 cm From Medial Malleolus 70.3 cm 30 cm From Medial Malleolus 76.4 cm 40 cm From Medial Malleolus 87.3 cm PT-OP-T Assessment and Plan Start: 07/03/19 10:30 Freq: Status: Active Protocol: Document 08/23/20 15:02 [facility] (Rec: 08/23/20 15:03 [facility] [id number]) Physical Therapy Plan Discharge Physical Therapy Discharge Reasons No Longer Attending PT Discharge Comments see above
== END 2020-08-24 14:25 | disposition home or self-care (01) ==
LOC: PHYS 10:30
PROVIDERS: PCP Family Medicine; Referring Provider Family Medicine; Visit Provider Family Medicine
DX: I89.0 Lymphedema, not elsewhere classified (principal); R53.1 Weakness; M79.662 Pain in left lower leg; M79.661 Pain in right lower leg; R26.2 Difficulty in walking, not elsewhere classified
CPT/HCPCS: 97110; 97140; 97161; 97535

== ENCOUNTER → 2020-04-26 12:34 | Outpatient (CLI) | payer MEDICARE, MEDICAID, SELFPAY ==
[2019-11-17 02:44] VITALS: BMI 71.8
--- NOTE | 2020-04-26 12:36 | DI.RAD.S_ITS ---
PROCEDURE: XR SHOULDER RT MIN 2V INDICATIONS: RT Shoulder pain TECHNIQUE: 3 views of the shoulder were acquired. COMPARISON: None. FINDINGS: Bones: No fractures or dislocations. No suspicious bony lesions. Visualized ribs appear intact. Soft tissues: No suspicious soft tissue calcifications. IMPRESSION: No trauma found. Dictated by: Saud Grimm M.D. on 04/26/2020 at 14:05 Approved by: Saud Grimm M.D. on 04/26/2020 at 14:06
== END ==
PROVIDERS: PCP Family Medicine; Referring Provider Family Medicine; Visit Provider Family Medicine
DX: M25.511 Pain in right shoulder (principal)
CPT/HCPCS: 73030

== ENCOUNTER 2020-05-13 17:55 | Emergency (ER) | payer MEDICARE, MEDICAID, SELFPAY ==
[2019-11-17 02:44] VITALS: BMI 71.8
--- NOTE | 2020-05-13 18:03 | ED_ITS ---
HPI - GI Bleed General Chief complaint: Abdominal Pain Stated complaint: blood in stool, stomach pain, nausea Time Seen by Provider: 05/13/20 17:59 Source: patient and family Mode of arrival: Ambulatory Limitations: no limitations History of Present Illness HPI Narrative: 44F former smoker with history of lymphedema, pulmonary embolism, on Coumadin presents with a family friend and a chief complaint of 3 days of e pisodic lower abdominal cramping and pain along with bright red stool in the toilet. She denies any history of the same. She denies any melena or coffee- ground emesis. She has had nausea but denies any vomiting. She denies any heavy drinking. She has not had a colonoscopy in over 20 years. She states that about a week ago she had a few days of constipation but no significant straining and thinks had return to normal until 3 days ago when she started the above-stated issues. By and large her pain is better with rest and worsens with movement. She's had no fever or chills. She denies dizziness, weakness, or lightheadedness. MD complaint: gross hematochezia Onset (ago): day(s) Pain Consistency: intermittent Severity: moderate Relieving factors: rest Exacerbating factors: bowel movement and movement Context: anticoagulant use Associated symptoms: abdominal pain and nausea Treatments Prior to Arrival: none Related Data Home Medications Medication Instructions Recorded Confirmed Disabled Parking Permit 1 dev MISCELLANEOUS DIRECTED 02/06/19 05/10/20 fluticasone furoate 200 1 inhalation INHALATION DAILY 08/21/19 05/10/20 mcg-vilanterol 25 mcg/dose inhalation powder multivitamin 1 tab PO DAILY 08/21/19 05/10/20 ipratropium-albuterol 3 ml INH Q6HP PRN 12/16/19 05/10/20 loratadine 10 mg capsule 10 mg PO DAILY 04/26/20 05/10/20 Previous Rx's Medication Instructions Recorded QUAD CANE #1 ea 05/08/18 propranolol 20 mg tablet 20 mg PO BID #60 tab 02/18/19 GRAB BARS FOR SHOWER #3 each 04/21/19 albuterol sulfate 90 mcg/actuation 2 puff INHALATION Q4-6H PRN #18 11/12/19 aerosol inhaler gram clotrimazole 1 applictn TOP BID #14 gram 11/19/19 nystatin 1 applictn TOP TID #60 gram 11/19/19 ondansetron 4 mg disintegrating 4 mg PO Q6H PRN #20 tab 12/22/19 tablet montelukast 10 mg tablet 10 mg PO DAILY #30 tab 03/18/20 hydrocodone 5 mg-acetaminophen 325 1 tab PO Q8H PRN #30 tab 04/28/20 mg tablet fluconazole 150 mg tablet 150 mg PO QWEEK #4 tab 05/03/20 warfarin 5 mg tablet See Rx Instructions .ROUTE 05/03/20 .COMPLEX #90 tab ciprofloxacin 0.3 %-dexamethasone 4 drp EAR-RIGHT BID #7.5 ml 05/04/20 0.1 % ear drops,suspension [id number]-tgipefjjc-nproxpsxo 3.5 4 drp EAR-RIGHT BID #10 ml 05/05/20 mg-10,000 unit/mL-1 % ear drops,susp Allergies Allergy/AdvReac Type Severity Reaction Status Date / Time latex Allergy Rash Verified 05/10/20 11:44 oxycodone [OXYCODONE] AdvReac Intermediate Irritabilit Verified 05/10/20 11:44 y Review of Systems Constitutional Constitutional: Denies chills, Denies fatigue, Denies fever(s), Denies frequent falls, Denies lethargy and Denies weakness Eyes Eyes: Denies change in vision, Denies eye discharge, Denies irritation and Denies loss of vision ENT Ears, Nose, Mouth, and Throat: Denies change in voice, Denies dizziness, Denies neck pain, Denies sore throat and Denies throat swelling Cardiovascular Cardiovascular: Denies chest pain, Denies irregular heart rhythm, Denies lightheadedness, Denies palpitations, Denies dyspnea, Denies dyspnea on exertion and Denies orthopnea Respiratory Respiratory: Denies cough, Denies dyspnea, Denies dyspnea on exertion and Denies wheezing Gastrointestinal Gastrointestinal: Reports abdominal pain, Reports hematochezia, Denies change in bowel habits, Denies diarrhea, Reports nausea and Denies vomiting Musculoskeletal Musculoskeletal: Denies neck pain and Denies numbness Integumentary/Breasts Skin/Breast: Denies pruritus, Denies erythema, Denies rash and Denies wounds Neurologic Neurologic: Denies behavioral changes, Denies confusion, Denies dizziness, Denies frequent falls, Denies loss of vision, Denies numbness and Denies weakness Psychiatric Psychiatric: Denies anxiety, Denies behavioral changes, Denies confusion, Denies depression, Denies homicidal ideation and Denies suicidal ideation Endocrine Endocrine: Denies fatigue, Denies flushing and Denies palpitations Hematologic/Lymphatic Hematologic/Lymphatic: Denies easy bruising Allergic/Immunologic Allergic/Immunologic: Denies urticaria, Denies throat swelling and Denies wheezing Patient History Medical History Adnexal mass Concentric left ventricular hypertrophy (~05/2017) Hypertension Hypertriglyceridemia Kidney stones Lymphedema Migraines Moderate persistent asthma Ovarian cyst (03/28/15) Pneumonia (2008) Restrictive lung disease Sleep apnea Wound infection Wound of right lower extremity Surgical History History of History of esophagogastroduodenoscopy (EGD) (~04/2015) History of hernia repair History of laparoscopic appendectomy (03/28/15) History of ovarian cystectomy History of placement of ear tubes History of tonsillectomy Family History Father No problems noted. Mother Atrial fibrillation Grandfather No problems noted. Grandmother No problems noted. Grandfather No problems noted. Grandmother No problems noted. Sister No problems noted. Social History household members: family Smoking Status: Former smoker Tobacco: How many years used: 17 second hand exposure: No alcohol intake: former Smoking Status: Former smoker alcohol intake frequency: other Substance Use Type: does not use Exam Narrative Exam Narrative: GENERAL: [44] year old patient appears stated age. Well- nourished, well-developed patient, in mild distress. BMI 72 HEAD: Atraumatic. Normocephalic. EYES: Pupils equal round and reactive. Extraocular motions intact. ENT: Nose without bleeding, purulent drainage. Throat without erythema, tonsillar hypertrophy or exudate. Airway patent. NECK: Trachea midline. Non tender CARDIOVASCULAR: Regular rate and rhythm, no murmurs RESPIRATORY: Clear to auscultation. Breath sounds equal bilaterally GASTROINTESTINAL: Abdomen soft, tender across the lower abdomen, nondistended. Bowel sounds present in all 4 quadrants EXTREMITIES: Significant edema B/L BACK: Nontender without deformity or crepitance. No flank tenderness. NEURO: AOx3. SKIN: No rash or erythema of visible areas Initial Vital Signs Initial Vital Signs: Vital Signs Temperature 98.3 F 05/13/20 18:11 Pulse Rate 82 05/13/20 18:11 Respiratory Rate 20 05/13/20 18:11 Blood Pressure 164/105 H 05/13/20 18:11 Pulse Oximetry 97 05/13/20 18:11 Course Orders Ordered: ED Orders 05/13/20 19:15 Complete Blood Count AUTO DIFF Stat Comprehensive Metabolic Panel Stat Lipase Stat Prothrombin Time INR Stat 05/13/20 20:40 CT abdomen pelvis w con Stat Discontinued Medications Hydromorphone HCl (Hydromorphone 0.5 Mg Inj) 0.5 mg IV NOW ONE Stop: 05/13/20 18:57 Last Admin: 05/13/20 19:09 Dose: 0.5 mg Documented by: HEMALATHA Hydromorphone HCl (Hydromorphone 0.5 Mg Inj) 0.5 mg IV NOW ONE Stop: 05/13/20 21:13 Last Admin: 05/13/20 21:16 Dose: 0.5 mg Documented by: HEMALATHA Sodium Chloride (Normal Saline 0.9%) 1,000 mls @ 150 mls/hr IV CONT CHANDA Last Infusion: 05/13/20 22:50 Dose: 150 mls/hr Documented by: Admin: 05/13/20 19:08 Dose: 150 mls/hr Documented by: HEMALATHA Ondansetron HCl (Ondansetron 4 Mg/2 Ml Inj) 4 mg IV NOW ONE Stop: 05/13/20 18:57 Last Admin: 05/13/20 19:10 Dose: 4 mg Documented by: HEMALATHA Pantoprazole Sodium (Pantoprazole 40 Mg Vial) 40 mg IV NOW ONE Stop: 05/13/20 18:57 Last Admin: 05/13/20 19:14 Dose: 40 mg Documented by: HEMALATHA Vital Signs Vital signs: Vital Signs - 8 hr 05/13/20 18:11 05/13/20 23:07 Temperature 98.3 F 97.7 F Pulse Rate 82 69 Respiratory Rate 20 18 Blood Pressure 164/105 H 117/70 Pulse Oximetry 97 98 MDM - GI Bleed Lab Data Result diagrams: 05/13/20 19:15 05/13/20 19:15 Labs: Lab Results 05/13/20 05/13/20 05/13/20 Range/Units 19:15 19:15 19:15 WBC 8.4 (4.5-11.0) X10^3/uL RBC 5.27 H (4.0-5.2) X10^6/uL Hgb 14.7 (12.0-16.0) g/dL Hct 43.6 (36-46) % MCV 82.7 (80-100) fL MCH 27.8 (26-34) PG MCHC 33.6 (30-36) % RDW 15.4 H (11.6-14.8) % Plt Count 245 (150-400) X10^3/uL Neut % (Auto) 64.4 (50-75) % Lymph % (Auto) 27.1 (25-40) % [place] % (Auto) 5.3 (3-14) % Eos % (Auto) 1.5 L (2-4) % Baso % (Auto) 1.7 (0-2) % Neut # (Auto) 5400 (4741-0813) /uL Lymph # (Auto) 2300 (3202-4534) /uL [place] # (Auto) 500 (0-900) /uL Eos # (Auto) 100 (0-450) /uL Baso # (Auto) 100 (0-100) /uL PT 20.6 H (10.1-12.7) SECONDS INR 1.8 H (0.9-1.3) Sodium 137 (137-145) mmol/L Potassium 4.3 (3.4-5.1) mmol/L Chloride 103 (98-107) mmol/L Carbon Dioxide 27 (22-32) mmol/L BUN 12 (7-17) mg/dL Creatinine 0.57 (0.52-1.04) mg/dL Estimated GFR > 60.0 (>60) mL/min BUN/Creatinine Ratio 21.1 (6-22) Glucose 100 (70-100) mg/dL Calcium 9.8 (8.4-10.2) mg/dL Total Bilirubin 0.6 (0.2-1.3) mg/dL AST 32 (14-36) IU/L ALT 22 (<35) IU/L Alkaline Phosphatase 57 (38-126) U/L Total Protein 8.1 (6.3-8.2) g/dL Albumin 4.5 (3.5-5.0) g/dL Globulin 3.6 (1.7-4.1) g/dL Albumin/Globulin Ratio 1.3 (1.0-2.8) Lipase 75 (23-300) U/L Urine Dip Bedside Urine Glucose Negative Bedside Urine Bilirubin - Negative Bedside Urine Ketone - Negative Urine Specific [place] 1.020 Bedside Urine Occult Blood +++ Bedside Urine pH 5.5 Bedside Urine Protein - Negative Bedside Urine Urobilinogen - Negative Bedside Urine Nitrite + Positive Bedside Urine Leukocytes + [address] scan - abdomen/pelvis: Radiologist's Impression: [address] [id number] Scan ReportSigned Patient: Cady Castillo MMR#: [id number]: [id number]:[id number]/Sex: 44 / FDate of Service: 05/13/20Loc: EDAccession Number: [id number] Procedure: CT abdomen pelvis w con Ordering Provider: Bimal Britt D.O. PROCEDURE: CT ABDOMEN PELVIS W CON INDICATIONS: severe lower abdominal pain TECHNIQUE: After the administration of intravenous contrast, 5 mm thick sections acquired from the diaphragm to the symphysis. 5 mm coronal and sagittal reformats were acquired. For radiation dose reduction, the following was used: automated exposure control, adjustment of mA and/or kV according to patient size. COMPARISON: [facility], CT, CT KIDNEY URETER BLADDER (KUB), 10/18/2018, 9:57. FINDINGS: Image quality: Excellent. ABDOMEN: Lung bases: Lung bases are clear. Heart size is normal. Solid organs: Liver is normal in size and enhancement. Mild, diffuse fatty infiltration of the liver. Gallbladder is partially contracted, but within normal limits. Biliary system is non dilated. Pancreas enhances normally. Spleen is normal in size and enhancement. No adrenal nodules. Kidneys demonstrate normal size and enhancement. 1.1 centimeter stone noted in the right renal pelvis. 2 millimeter nonobstructing stone in the lower pole of the right kidney. No left-sided renal stones or hydronephrosis. Peritoneum and bowel: Bowel loops demonstrate normal wall thickness and caliber. Diverticulum involving 2nd portion of duodenum is stable. No free fluid or air. Multi-septated cystic mass involving the pelvis likely rising from the left adnexa has increased in size measuring 32.4 by 19.4 by 17.1 centimeters. Cystic mass likely [place] from the right adnexa is not significantly changed measuring 8.3 by 8.3 by 9.1 centimeters. Nodes and vessels: No retroperitoneal or mesenteric adenopathy by size criteria. Aorta and inferior vena cava are normal in size. Miscellaneous: Fat containing lower pelvic ventral midline hernia. PELVIS: Genitourinary: Bladder wall thickness is normal. Miscellaneous: No inguinal hernias or adenopathy. Bones: No suspicious bony lesions. No vertebral body compression fractures. Spine degenerative disc disease and facet arthropathy. IMPRESSION: 1. Large cystic masses involving the lower pelvis redemonstrated. Cystic mass likely rising from the left adnexa has increased in size compared to October 18, 2018. Cystic mass likely arising from the right adnexa is not significantly changed compared to the prior exam. Cystic masses remain suspicious for cystic ovarian neoplasms including serous and mucinous cystadenoma and cystadenocarcinoma. Recommend gynecology consultation. 2. 1.1 centimeter right renal pelvis renal stone. No hydronephrosis. 3. Hepatic steatosis. Dictated by: Lia Garcai MD, PhD on 05/13/2020 at 21:50 Approved by: Lia Garcia MD, PhD on 05/13/2020 at 21:50 [facility] [place] Narrative Medical decision making narrative: Multiple etiologies for patient's symptoms considered including: [Diverticular bleed versus diverticulitis versus Coumadin problem versus other] Patient's symptoms improved over duration of stay with above-stated therapies. No alterations in INR, given relatively benign findings on exam and with labs as well as sub therapeutic monitoring. Patient encouraged to follow-up closely with PCP Findings and discharge diagnosis discussed with patient/family followed by verbalization of understanding Return precautions discussed with patient/family whom verbalize understanding. Discharge Plan Departure Patient Disposition: Home Clinical Impression: Bright red rectal bleeding, Right shoulder pain Abdominal pain Qualifiers: Abdominal location: lower abdomen, unspecified Qualified Code(s): R10.30 - Lower abdominal pain, unspecified Instructions: DI for Abdominal Pain-Adult, DI for Rectal Bleeding Activity Restrictions/Additional Instructions: *You have been diagnosed with [abdominal pain and rectal bleeding, he had very reassuring lab work and imaging does not show any new findings] *What to do: *Take medications as directed *Follow up with your primary care provider in 2-3 days, call for an appointment. Let them know you were seen in the Emergency Department and that we ask that you be seen in follow up *Return to ER if you should have any new, worsening or concerning symptoms Prescriptions: No Action (DME) QUAD CANE Qty: 1 RF: 0 montelukast 10 mg tablet 10 mg PO DAILY Qty: 30 RF: 1 hydrocodone-acetaminophen 5-325 mg tablet 1 tab PO Q8H PRN (Reason: pain) Qty: 30 RF: 0 fluconazole 150 mg tablet 150 mg PO QWEEK Qty: 4 RF: 0 warfarin 5 mg tablet See Rx Instructions .ROUTE .COMPLEX Qty: 90 RF: 0 ciprofloxacin-dexamethasone 0.3-0.1 % drops,suspension 4 drp EAR-RIGHT BID Qty: 7.5 RF: 0 kitynrkb-ahqxlewgd-WG 3.5-10,000-1 mg/mL-unit/mL-% drops,suspension 4 drp EAR-RIGHT BID Qty: 10 RF: 0 propranolol 20 mg tablet 20 mg PO BID Qty: 60 RF: 5 (DME) GRAB BARS FOR SHOWER Qty: 3 RF: 0 ondansetron 4 mg tablet,disintegrating 4 mg PO Q6H PRN (Reason: nausea and vomiting) Qty: 20 RF: 0 loratadine 10 mg capsule 10 mg PO DAILY RF: 0 Breo Ellipta 200-25 mcg/dose blister with device 1 inhalation INHALATION DAILY RF: 0 multivitamin Tablet 1 tab PO DAILY RF: 0 albuterol sulfate [Ventolin HFA] 90 mcg/actuation HFA aerosol inhaler 2 puff INHALATION Q4-6H PRN (Reason: Shortness Of Breath) Qty: 18 RF: 0 Disabled Parking Permit 1 dev miscellaneous DIRECTED RF: 0 nystatin 100,000 unit/gram powder 1 applictn TOP TID Qty: 60 RF: 3 clotrimazole 1 % cream 1 applictn TOP BID Qty: 14 RF: 0 ipratropium-albuterol 3 ML solution for nebulization 3 ml INH Q6HP PRN (Reason: wheezing/ shortness of breath) RF: 0 Referrals: Ivy Crystal DO [Primary Care Provider] -
[2020-05-13 18:11] VITALS: BP 164/105; PULSE 82; RESP 20; TEMP 36.8; O2SAT 97; BMI 72.0
[2020-05-13] MEDS: SODIUM CHLORIDE 0.9% 1,000 ML 150 ML IV (19:08)
[2020-05-13] MEDS: HYDROMORPHONE 0.5 MG INJ IV ×2 (19:09→21:16)
[2020-05-13] MEDS: ONDANSETRON 4 MG/2 ML INJ IV (19:10)
[2020-05-13] MEDS: PANTOPRAZOLE 40 MG VIAL IV (19:14)
[2020-05-13 19:22] LABS: Add Manual Diff / Slide Review NO; Basophils Absolute Auto 100 /uL (0-100); Basophils Percent Auto 1.7 % (0-2); Eosinophils Absolute Auto 100 /uL (0-450); Eosinophils Percent Auto 1.5 % (2-4); Hematocrit 43.6 % (36-46); Hemoglobin 14.7 g/dL (12.0-16.0); Lymphocytes Absolute Auto 2300 /uL (1100-4500); Lymphocytes Percent Auto 27.1 % (25-40); Mean Corpuscular HGB Conc 33.6 % (30-36); Mean Corpuscular Hemoglobin 27.8 PG (26-34); Mean Corpuscular Volume 82.7 fL (80-100); Monocytes Absolute Auto 500 /uL (0-900); Monocytes Percent Auto 5.3 % (3-14); Neutrophils Absolute Auto 5400 /uL (1500-7000); Neutrophils Percent Auto 64.4 % (50-75); Platelet Count 245 X10^3/uL (150-400); Red Blood Cell Count 5.27 X10^6/uL (4.0-5.2); Red Cell Distribution Width 15.4 % (11.6-14.8); White Blood Cell Count 8.4 X10^3/uL (4.5-11.0)
[2020-05-13 19:35] LABS: INR 1.8 (0.9-1.3); Prothrombin Time 20.6 SECONDS (10.1-12.7)
[2020-05-13 19:43] LABS: Alanine Aminotransferase 22 IU/L (<35); Albumin 4.5 g/dL (3.5-5.0); Albumin Globulin Ratio 1.3 (1.0-2.8); Alkaline Phosphatase 57 U/L (38-126); Aspartate Aminotransferase 32 IU/L (14-36); BUN Creatinine Ratio 21.1 (6-22); Bilirubin Total 0.6 mg/dL (0.2-1.3); Blood Urea Nitrogen 12 mg/dL (7-17); Calcium 9.8 mg/dL (8.4-10.2); Carbon Dioxide 27 mmol/L (22-32); Chloride 103 mmol/L (98-107); Estimated Glomerular Filt Rate > 60.0 mL/min (>60); Globulin 3.6 g/dL (1.7-4.1); Glucose 100 mg/dL (70-100); HEMOLYSIS 42 (0-50); Lipase 75 U/L (23-300); Potassium 4.3 mmol/L (3.4-5.1); Sodium 137 mmol/L (137-145); Total Protein 8.1 g/dL (6.3-8.2)
--- NOTE | 2020-05-13 20:40 | DI.CT.S_ITS ---
PROCEDURE: CT ABDOMEN PELVIS W CON INDICATIONS: severe lower abdominal pain TECHNIQUE: After the administration of intravenous contrast, 5 mm thick sections acquired from the diaphragm to the symphysis. 5 mm coronal and sagittal reformats were acquired. For radiation dose reduction, the following was used: automated exposure control, adjustment of mA and/or kV according to patient size. COMPARISON: [facility], CT, CT KIDNEY URETER BLADDER (KUB), 10/18/2018, 9:57. FINDINGS: Image quality: Excellent. ABDOMEN: Lung bases: Lung bases are clear. Heart size is normal. Solid organs: Liver is normal in size and enhancement. Mild, diffuse fatty infiltration of the liver. Gallbladder is partially contracted, but within normal limits. Biliary system is non dilated. Pancreas enhances normally. Spleen is normal in size and enhancement. No adrenal nodules. Kidneys demonstrate normal size and enhancement. 1.1 centimeter stone noted in the right renal pelvis. 2 millimeter nonobstructing stone in the lower pole of the right kidney. No left-sided renal stones or hydronephrosis. Peritoneum and bowel: Bowel loops demonstrate normal wall thickness and caliber. Diverticulum involving 2nd portion of duodenum is stable. No free fluid or air. Multi-septated cystic mass involving the pelvis likely rising from the left adnexa has increased in size measuring 32.4 by 19.4 by 17.1 centimeters. Cystic mass likely [place] from the right adnexa is not significantly changed measuring 8.3 by 8.3 by 9.1 centimeters. Nodes and vessels: No retroperitoneal or mesenteric adenopathy by size criteria. Aorta and inferior vena cava are normal in size. Miscellaneous: Fat containing lower pelvic ventral midline hernia. PELVIS: Genitourinary: Bladder wall thickness is normal. Miscellaneous: No inguinal hernias or adenopathy. Bones: No suspicious bony lesions. No vertebral body compression fractures. Spine degenerative disc disease and facet arthropathy. IMPRESSION: 1. Large cystic masses involving the lower pelvis redemonstrated. Cystic mass likely rising from the left adnexa has increased in size compared to October 18, 2018. Cystic mass likely arising from the right adnexa is not significantly changed compared to the prior exam. Cystic masses remain suspicious for cystic ovarian neoplasms including serous and mucinous cystadenoma and cystadenocarcinoma. Recommend gynecology consultation. 2. 1.1 centimeter right renal pelvis renal stone. No hydronephrosis. 3. Hepatic steatosis. Dictated by: Lia Garcia MD, PhD on 05/13/2020 at 21:50 Approved by: Lia Garcia MD, PhD on 05/13/2020 at 21:50
[2020-05-13 23:07] VITALS: BP 117/70; PULSE 69; RESP 18; TEMP 36.5; O2SAT 98
== END 2020-05-13 23:04 | disposition home or self-care (01) ==
PROVIDERS: Emergency Provider Emergency Medicine; PCP Family Medicine
DX: K62.5 Hemorrhage of anus and rectum (principal); M25.511 Pain in right shoulder; R10.30 Lower abdominal pain, unspecified; Z87.2 Personal history of diseases of the skin and subcutaneous tissue; I26.99 Other pulmonary embolism without acute cor pulmonale; Z79.01 Long term (current) use of anticoagulants; I10 Essential (primary) hypertension
CPT/HCPCS: 36415; 74177; 80053; 81003; 83690; 85025; 85610; 96361; 96374; 96375; 96376; 99283; 99284; C9113; J1170; J2405

== ENCOUNTER → 2020-05-15 15:51 | Outpatient (CLI) | payer MEDICARE, MEDICAID, SELFPAY ==
[2019-11-17 02:44] VITALS: BMI 71.8
[2020-05-15 21:08] LABS: Appearance Urine UA Cloudy; Color Urine UA Yellow; Glucose Urine UA NEGATIVE (Negative); Ketones Urine UA NEGATIVE (NEGATIVE); Occult Blood Urine UA 3+ (Negative); Protein Urine UA TRACE (Negative); Specific Gravity Urine UA 1.025 (1.000-1.035)
[2020-05-15 21:09] LABS: Bacteria Urine Many (>30); Bilirubin Urine UA Negative (NEGATIVE); Culture Indicated Urine Specimen Cultured; Leukocyte Esterase Urine UA 2+ (NEGATIVE); Nitrite Urine UA POSITIVE (Negative); RBC Urine 30-100/HPF (0-5/HPF); Squamous Epithelial Cell Urine 1-5 /HPF (0-5/HPF); Urobilinogen Urine UA 0.2 E.U./dL (0.2); WBC Urine 30-100/HPF (0-5/HPF)
== END ==
PROVIDERS: PCP Family Medicine; Referring Provider Family Medicine; Visit Provider Family Medicine
DX: R10.30 Lower abdominal pain, unspecified (principal); N39.0 Urinary tract infection, site not specified
CPT/HCPCS: 81001; 87077; 87086; 87186

== ENCOUNTER → 2020-08-28 11:35 | Outpatient (CLI) | payer MEDICARE, MEDICAID, SELFPAY ==
[2019-11-17 02:44] VITALS: BMI 71.8
[2020-08-28 12:59] LABS: Add Manual Diff / Slide Review NO; Basophils Absolute Auto 100 /uL (0-100); Basophils Percent Auto 0.9 % (0-2); Eosinophils Absolute Auto 100 /uL (0-450); Eosinophils Percent Auto 1.4 % (2-4); Hematocrit 36.6 % (36-46); Lymphocytes Absolute Auto 2000 /uL (1100-4500); Lymphocytes Percent Auto 26.9 % (25-40); Mean Corpuscular HGB Conc 32.8 % (30-36); Mean Corpuscular Hemoglobin 25.6 PG (26-34); Monocytes Absolute Auto 500 /uL (0-900); Monocytes Percent Auto 6.3 % (3-14); Neutrophils Absolute Auto 4700 /uL (1500-7000); Neutrophils Percent Auto 64.5 % (50-75); Platelet Count 242 X10^3/uL (150-400); Red Cell Distribution Width 16.1 % (11.6-14.8); White Blood Cell Count 7.3 X10^3/uL (4.5-11.0)
[2020-08-28 13:10] LABS: Alanine Aminotransferase 22 IU/L (<35); Albumin 4.3 g/dL (3.5-5.0); Albumin Globulin Ratio 1.2 (1.0-2.8); Alkaline Phosphatase 66 U/L (38-126); Aspartate Aminotransferase 32 IU/L (14-36); BUN Creatinine Ratio 19.6 (6-22); Bilirubin Total 0.4 mg/dL (0.2-1.3); Blood Urea Nitrogen 11 mg/dL (7-17); Calcium 9.7 mg/dL (8.4-10.2); Carbon Dioxide 25 mmol/L (22-32); Chloride 104 mmol/L (98-107); Cholesterol 179 mg/dL (140-199); Estimated Glomerular Filt Rate > 60.0 mL/min (>60); Globulin 3.5 g/dL (1.7-4.1); Glucose 110 mg/dL (70-100); HDL Cholesterol 30 mg/dL (40-60); HEMOLYSIS < 15 (0-50); LDL Cholesterol Calculated 77 mg/dL (<100); Potassium 4.3 mmol/L (3.4-5.1); Sodium 139 mmol/L (137-145); Total Protein 7.8 g/dL (6.3-8.2); Triglycerides 361 mg/dL (35-150)
== END ==
PROVIDERS: PCP Family Medicine; Referring Provider Family Medicine; Visit Provider Family Medicine
DX: D50.9 Iron deficiency anemia, unspecified (principal); K76.0 Fatty (change of) liver, not elsewhere classified; R73.01 Impaired fasting glucose; I10 Essential (primary) hypertension; E66.01 Morbid (severe) obesity due to excess calories; Z68.45 Body mass index [BMI] 70 or greater, adult; D50.8 Other iron deficiency anemias
CPT/HCPCS: 36415; 80053; 80061; 85025

== ENCOUNTER → 2020-09-08 11:42 | Outpatient (CLI) | payer MEDICARE, MEDICAID, SELFPAY ==
[2019-11-17 02:44] VITALS: BMI 71.8
[2020-09-08 12:24] LABS: COVID19 -Nasal RAPID Negative (Negative)
== END ==
PROVIDERS: PCP Family Medicine; Referring Provider Internal Medicine; Visit Provider Internal Medicine
DX: Z20.822 Contact with and (suspected) exposure to COVID-19 (principal)
CPT/HCPCS: 87635

== ENCOUNTER → 2020-09-08 11:44 | Outpatient (CLI) | payer MEDICARE, MEDICAID, SELFPAY ==
[2019-11-17 02:44] VITALS: BMI 71.8
--- NOTE | 2020-09-15 08:42 | PM.PFT.1 ---
Pulmonary Function Test Referral & Results Date Patient Seen: 09/08/20 Requesting provider: Ivy Crystal Results: The spirometry demonstrates an FVC of 1.30 L which is 32% of predicted. The FEV1 was measured at 0.96 L which is 29% of predicted. The FEV1/FVC ratio was 74 which is 90% of predicted. Following the administration of bronchodilator there was no appreciable change. Lung volumes show an SVC of 1.49 L which is 40% of predicted. Patient was unable to do a diffusing capacity The maximum voluntary ventilation was severely reduced Interpretation: This study demonstrates severe obstructive lung disease with FEV1 of less than 1 L as above. There is no evidence of benefit following bronchodilator There is also moderately severe restrictive lung disease based on severe reduction in lung volumes There is a severe reduction in maximum voluntary ventilation Overall this suggest an element of perhaps restrictive lung disease in addition to the obstructive lung disease Compared to PFTs performed in September 2013, current study is significantly worse with prior FEV1 being 2.28 L current being less than 1 L as above. Clinical correlation suggested
== END ==
PROVIDERS: PCP Family Medicine; Referring Provider Family Medicine; Visit Provider Family Medicine
DX: I27.82 Chronic pulmonary embolism (principal); Z20.822 Contact with and (suspected) exposure to COVID-19
CPT/HCPCS: 87635; 94060

== ENCOUNTER → 2020-09-09 09:51 | Outpatient (CLI) | payer MEDICARE, MEDICAID, SELFPAY ==
[2019-11-17 02:44] VITALS: BMI 71.8
== END ==
PROVIDERS: PCP Family Medicine; Referring Provider Family Medicine; Visit Provider Family Medicine
DX: I89.0 Lymphedema, not elsewhere classified (principal); L97.811 Non-pressure chronic ulcer of other part of right lower leg limited to breakdown of skin; R60.0 Localized edema; L08.9 Local infection of the skin and subcutaneous tissue, unspecified
CPT/HCPCS: 11042; 87070; 87075; 87077; 87147; 87186; 87205; 99213; 99214

== ENCOUNTER → 2020-09-23 10:42 | Outpatient (CLI) | payer MEDICARE, MEDICAID, SELFPAY ==
[2019-11-17 02:44] VITALS: BMI 71.8
== END ==
PROVIDERS: PCP Family Medicine; Referring Provider Family Medicine; Visit Provider Family Medicine
DX: I89.0 Lymphedema, not elsewhere classified (principal); L97.211 Non-pressure chronic ulcer of right calf limited to breakdown of skin; R60.0 Localized edema; L08.9 Local infection of the skin and subcutaneous tissue, unspecified; B95.61 Methicillin susceptible Staphylococcus aureus infection as the cause of diseases classified elsewhere; R63.4 Abnormal weight loss; R63.0 Anorexia; R53.83 Other fatigue
CPT/HCPCS: 11042; 87070; 87075; 87077; 87147; 87186; 87205; 99214

== ENCOUNTER → 2020-09-25 11:26 | Outpatient (CLI) | payer MEDICARE, MEDICAID, SELFPAY ==
[2019-11-17 02:44] VITALS: BMI 71.8
[2020-09-25 13:06] LABS: Add Manual Diff / Slide Review NO; Basophils Absolute Auto 100 /uL (0-100); Basophils Percent Auto 0.9 % (0-2); Eosinophils Absolute Auto 100 /uL (0-450); Hematocrit 40.8 % (36-46); Hemoglobin 13.1 g/dL (12.0-16.0); Lymphocytes Absolute Auto 2000 /uL (1100-4500); Lymphocytes Percent Auto 27.7 % (25-40); Mean Corpuscular HGB Conc 32.2 % (30-36); Mean Corpuscular Hemoglobin 24.8 PG (26-34); Mean Corpuscular Volume 76.9 fL (80-100); Monocytes Absolute Auto 300 /uL (0-900); Monocytes Percent Auto 4.8 % (3-14); Neutrophils Absolute Auto 4700 /uL (1500-7000); Neutrophils Percent Auto 64.6 % (50-75); Platelet Count 216 X10^3/uL (150-400); Red Cell Distribution Width 16.2 % (11.6-14.8); White Blood Cell Count 7.3 X10^3/uL (4.5-11.0)
[2020-09-25 13:11] LABS: Reticulocyte Count, Percent 2.1 % (1.06-2.63)
[2020-09-25 13:17] LABS: HEMOLYSIS < 15 (0-50); Iron 59 ug/dL (37-170)
[2020-09-25 13:25] LABS: Alanine Aminotransferase 16 IU/L (<35); Albumin 4.3 g/dL (3.5-5.0); Albumin Globulin Ratio 1.3 (1.0-2.8); Alkaline Phosphatase 59 U/L (38-126); Aspartate Aminotransferase 25 IU/L (14-36); BUN Creatinine Ratio 26.4 (6-22); Bilirubin Total 0.6 mg/dL (0.2-1.3); Blood Urea Nitrogen 14 mg/dL (7-17); Calcium 9.9 mg/dL (8.4-10.2); Carbon Dioxide 25 mmol/L (22-32); Chloride 104 mmol/L (98-107); Estimated Glomerular Filt Rate > 60.0 mL/min (>60); Globulin 3.3 g/dL (1.7-4.1); Glucose 117 mg/dL (70-100); HEMOLYSIS < 15 (0-50); Lactate Dehydrogenase 446 U/L (313-618); Potassium 3.9 mmol/L (3.4-5.1); Sodium 139 mmol/L (137-145); Total Protein 7.6 g/dL (6.3-8.2)
[2020-09-25 13:29] LABS: Percent Iron Saturation 13 % (15-50); Total Iron Binding Capacity 445 ug/dL (265-497); Transferrin 348 mg/dL (206-381)
[2020-09-25 13:48] LABS: Thyroid Stimulating Hormone 1.88 uIU/mL (0.47-4.68)
[2020-09-25 13:54] LABS: Ferritin 12 ng/mL (6-137)
[2020-09-25 14:19] LABS: Erythrocyte Sedimentation Rate 23 MM/HR (0-20)
[2020-09-25 14:23] LABS: Folate 4.4 ng/mL (2.76-20.0); Vitamin B12 302 pg/mL (239-931)
[2020-09-26 20:32] LABS: Haptoglobin 220 mg/dL (42-296)
== END ==
PROVIDERS: PCP Family Medicine; Referring Provider Family Medicine; Visit Provider Family Medicine
DX: R63.4 Abnormal weight loss (principal); R71.8 Other abnormality of red blood cells; R53.83 Other fatigue; R63.0 Anorexia; G25.81 Restless legs syndrome
CPT/HCPCS: 36415; 80053; 82607; 82728; 82746; 83010; 83540; 83550; 83615; 84443; 85025; 85045; 85651; 86140

== ENCOUNTER → 2020-10-05 11:20 | Outpatient (CLI) | payer MEDICARE, MEDICAID, SELFPAY ==
[2019-11-17 02:44] VITALS: BMI 71.8
--- NOTE | 2020-10-05 11:30 | DI.CT.S_ITS ---
PROCEDURE: CT CHEST ABD PEL WO CON INDICATIONS: worsening PFTs TECHNIQUE: After the administration of oral contrast, 5 mm thick sections acquired from the lung apices to the symphysis pubis. 5 mm thick coronal and sagittal reformats acquired, with additional 7 mm coronal MIP reformats through the lungs. For radiation dose reduction, the following was used: automated exposure control, adjustment of mA and/or kV according to patient size. COMPARISON: [facility], CT, CT ABDOMEN PELVIS W CON, 05/13/2020, 20:48. FINDINGS: Image quality: Significantly limited by the absence of oral and intravenous contrast.. CHEST: Lungs and pleura: No acute pulmonary opacities. No pleural effusions or pneumothorax. Central and peripheral airways are patent are normal in caliber. Mediastinum: Heart size is normal. No pericardial effusion. No mediastinal adenopathy by CT size criteria. Thoracic aorta and central pulmonary arteries are normal in size. Esophagus is normal in caliber. No hiatal hernia. Chest wall: No axillary or supraclavicular adenopathy by size criteria. Thyroid gland appears normal where well visualized.. ABDOMEN: Solid organs: Liver is normal in size. Gallbladder appears normal . Pancreas is normal in contours. Spleen is normal in size. No adrenal nodules. Both kidneys are normal in size, without hydronephrosis or nephrolithiasis on the left.. A previously present 14 mm calculus is a again seen at the right renal pelvis, without definite obstruction. Peritoneum and bowel: Small and large bowel loops are normal in caliber and wall thickness. No free fluid or air. Nodes and vessels: No retroperitoneal or mesenteric adenopathy by size criteria. Aorta and inferior vena cava are normal in size. Miscellaneous: No ventral hernias. PELVIS: Genitourinary: Bladder wall thickness is normal. A large pelvic cystic and solid mass has diminished in size, with reference to the study from 05/13/20. This mass had measured up to 32 cm transverse and 17.5 cm AP and now measures 20.5 cm transverse and 11 point 1 cm AP. An ovoid cystic component of this mass is present at the right pericolic gutter at the axial level of the iliac crest. This had been previously present. Also, an additional mass effect from this structure has not developed, with displacement of bowel loops and the bladder below mildly from anatomic positioning. This also was previously present. Miscellaneous: No inguinal hernias or adenopathy. Bones: No suspicious bony lesions. No vertebral body compression fractures. IMPRESSION: Interval reduction in size of a large pelvic cystic and solid mass identified and detailed most recently 05/13/20. Both benign and malignant cystic lesions of the ovary should be considered as the likely cause. Gynecological consultation is recommended despite interval reduction in size of the large mass if this has not yet been performed.. 14 mm calculus at the renal pelvis on the right, without right-sided urinary tract obstruction at this time. This also was previously present. Dictated by: Saud Grimm M.D. on 10/05/2020 at 14:21 Approved by: Saud Grimm M.D. on 10/05/2020 at 14:39
== END ==
PROVIDERS: PCP Family Medicine; Referring Provider Family Medicine; Visit Provider Family Medicine
DX: J45.50 Severe persistent asthma, uncomplicated (principal); J98.4 Other disorders of lung; R19.00 Intra-abdominal and pelvic swelling, mass and lump, unspecified site; N20.0 Calculus of kidney
CPT/HCPCS: 71250; 74176

== ENCOUNTER → 2020-10-13 13:20 | Outpatient (CLI) | payer MEDICARE, MEDICAID, SELFPAY ==
[2019-11-17 02:44] VITALS: BMI 71.8
== END ==
PROVIDERS: PCP Family Medicine; Referring Provider Family Medicine; Visit Provider Family Medicine
DX: I89.0 Lymphedema, not elsewhere classified (principal); R63.4 Abnormal weight loss; R53.83 Other fatigue; L85.9 Epidermal thickening, unspecified; R60.0 Localized edema
CPT/HCPCS: 29581; 99183; 99213

== ENCOUNTER → 2022-05-27 10:12 | Outpatient (CLI) | payer MEDICARE, MEDICAID, SELFPAY ==
[2019-11-17 02:44] VITALS: BMI 71.8
[2022-05-27 11:48] LABS: Add Manual Diff / Slide Review NO; Basophils Absolute Auto 100 /uL (0-100); Basophils Percent Auto 1.1 % (0-2); Eosinophils Absolute Auto 100 /uL (0-450); Eosinophils Percent Auto 1.5 % (2-4); Hematocrit 36.5 % (36-46); Hemoglobin 11.2 g/dL (12.0-16.0); Hemoglobin A1C% w Est Avg Glu 5.6 % (4.0-6.0); Lymphocytes Absolute Auto 1800 /uL (1100-4500); Lymphocytes Percent Auto 22.5 % (25-40); Mean Corpuscular HGB Conc 30.7 % (30-36); Mean Corpuscular Volume 68.5 fL (80-100); Monocytes Absolute Auto 500 /uL (0-900); Monocytes Percent Auto 5.9 % (3-14); Neutrophils Absolute Auto 5600 /uL (1500-7000); Platelet Count 261 X10^3/uL (150-400); Red Blood Cell Count 5.32 X10^6/uL (4.0-5.2); Red Cell Distribution Width 19.8 % (11.6-14.8); White Blood Cell Count 8.1 X10^3/uL (4.5-11.0)
[2022-05-27 11:50] LABS: Alanine Aminotransferase 19 IU/L (<35); Albumin 4.3 g/dL (3.5-5.0); Albumin Globulin Ratio 1.3 (1.0-2.8); Alkaline Phosphatase 64 U/L (38-126); Aspartate Aminotransferase 23 IU/L (14-36); BUN Creatinine Ratio 18.6 (6-22); Bilirubin Total 0.7 mg/dL (0.2-1.3); Blood Urea Nitrogen 11 mg/dL (7-17); Calcium 9.1 mg/dL (8.4-10.2); Carbon Dioxide 23 mmol/L (22-32); Chloride 102 mmol/L (98-107); Cholesterol 184 mg/dL (140-199); Estimated Glomerular Filt Rate > 60 mL/min (>60); Globulin 3.4 g/dL (1.7-4.1); Glucose 104 mg/dL (70-100); HDL Cholesterol 33 mg/dL (40-60); HEMOLYSIS < 15 (0-50); LDL Cholesterol Calculated 89 mg/dL (<100); Potassium 4.2 mmol/L (3.4-5.1); Sodium 139 mmol/L (137-145); Total Protein 7.7 g/dL (6.3-8.2); Triglycerides 310 mg/dL (35-150)
[2022-05-27 12:06] LABS: Free T4, Direct Thyroxine 1.28 ng/dL (0.78-2.19)
[2022-05-27 12:20] LABS: Thyroid Stimulating Hormone 2.44 uIU/mL (0.47-4.68)
[2022-05-27 13:30] LABS: Microcytosis 2+
[2022-05-27 13:31] LABS: Anisocytosis 2+
== END ==
PROVIDERS: PCP Family Medicine; Referring Provider Family Medicine; Visit Provider Family Medicine
DX: I10 Essential (primary) hypertension (principal); R73.01 Impaired fasting glucose; I27.82 Chronic pulmonary embolism; J45.50 Severe persistent asthma, uncomplicated; M47.817 Spondylosis without myelopathy or radiculopathy, lumbosacral region; N83.209 Unspecified ovarian cyst, unspecified side
CPT/HCPCS: 36415; 80053; 80061; 83036; 84439; 84443; 85025

== ENCOUNTER → 2022-06-22 10:47 | Outpatient (CLI) | payer MEDICARE, MEDICAID, SELFPAY ==
[2019-11-17 02:44] VITALS: BMI 71.8
[2022-06-22 11:40] LABS: Add Manual Diff / Slide Review NO; Basophils Absolute Auto 100 /uL (0-100); Basophils Percent Auto 0.8 % (0-2); Eosinophils Absolute Auto 100 /uL (0-450); Eosinophils Percent Auto 1.2 % (2-4); Hematocrit 36.4 % (36-46); Hemoglobin 11.1 g/dL (12.0-16.0); Lymphocytes Absolute Auto 2300 /uL (1100-4500); Lymphocytes Percent Auto 25.7 % (25-40); Mean Corpuscular HGB Conc 30.6 % (30-36); Mean Corpuscular Hemoglobin 20.9 PG (26-34); Mean Corpuscular Volume 68.4 fL (80-100); Monocytes Absolute Auto 600 /uL (0-900); Monocytes Percent Auto 6.2 % (3-14); Neutrophils Absolute Auto 5900 /uL (1500-7000); Neutrophils Percent Auto 66.1 % (50-75); Platelet Count 273 X10^3/uL (150-400); Red Blood Cell Count 5.33 X10^6/uL (4.0-5.2); Red Cell Distribution Width 19.7 % (11.6-14.8); White Blood Cell Count 8.9 X10^3/uL (4.5-11.0)
[2022-06-22 11:53] LABS: Appearance Urine UA CLOUDY; Bilirubin Urine UA NEGATIVE (NEGATIVE); Color Urine UA YELLOW; Glucose Urine UA NEGATIVE (Negative); Ketones Urine UA NEGATIVE (NEGATIVE); Leukocyte Esterase Urine UA 2+ (NEGATIVE); Nitrite Urine UA POSITIVE (Negative); Occult Blood Urine UA TRACE-INTACT (Negative); Protein Urine UA NEGATIVE (Negative); Specific Gravity Urine UA >=1.030 (1.000-1.035); Urobilinogen Urine UA 0.2 E.U./dL (0.2)
[2022-06-22 12:04] LABS: Erythrocyte Sedimentation Rate 49 MM/HR (0-20); HEMOLYSIS < 15 (0-50); Iron 45 ug/dL (37-170)
[2022-06-22 12:10] LABS: Rheumatoid Factor < 8.6 IU/mL (<12.0)
[2022-06-22 12:12] LABS: Hypochromasia 1+; Microcytosis 1+
[2022-06-22 12:15] LABS: Percent Iron Saturation 10 % (15-50); Total Iron Binding Capacity 471 ug/dL (265-497); Transferrin 338 mg/dL (206-381)
[2022-06-22 12:27] LABS: Bacteria Urine Many (>30); Culture Indicated Urine Specimen Cultured; RBC Urine 1-5/HPF (0-5/HPF); Squamous Epithelial Cell Urine 10-30 /HPF (0-5/HPF); WBC Urine >100/HPF (0-5/HPF)
[2022-06-22 12:51] LABS: Vitamin B12 250 pg/mL (239-931)
[2022-06-26 12:06] LABS: ANA Screen, IFA Negative (.)
[2022-06-26 18:29] LABS: CCP Antibodies IgG/IgA 7 units (0-19)
== END ==
PROVIDERS: PCP Family Medicine; Referring Provider Family Medicine; Visit Provider Family Medicine
DX: D50.9 Iron deficiency anemia, unspecified (principal); I26.99 Other pulmonary embolism without acute cor pulmonale; N94.89 Other specified conditions associated with female genital organs and menstrual cycle; M79.7 Fibromyalgia
CPT/HCPCS: 36415; 81001; 82607; 83540; 83550; 85025; 85651; 86038; 86200; 86430; 87077; 87086; 87186

== ENCOUNTER → 2022-07-10 12:15 | Outpatient (CLI) | payer MEDICARE, MEDICAID, SELFPAY ==
[2019-11-17 02:44] VITALS: BMI 71.8
--- NOTE | 2022-07-10 12:17 | DI.RAD.S_ITS ---
PROCEDURE: XR KNEE RT 3V INDICATIONS: RIGHT KNEE PAIN TECHNIQUE: 3 views of the knee were acquired. COMPARISON: [facility], , KNEE 3V RIGHT, 12/10/2014, 9:35. FINDINGS: Bones: Moderately severe medial compartment joint space loss. Prominent medial and lateral compartment marginal spurring and mild patellofemoral compartment spurs. Soft tissues: No joint effusion. No suspicious soft tissue calcifications. No chondrocalcinosis. IMPRESSION: 1. Progressive, moderately severe tricompartment osteoarthritic changes, most severe in the medial compartment. Dictated by: Rossy Mora M.D. on 07/10/2022 at 14:38 Approved by: Rossy Mora M.D. on 07/10/2022 at 14:39
--- NOTE | 2022-07-10 12:17 | DI.RAD.S_ITS ---
PROCEDURE: XR KNEE LT 3V INDICATIONS: LEFT KNEE PAIN TECHNIQUE: 3 views of the knee were acquired. COMPARISON: [facility], , KNEE 3V LEFT, 12/10/2014, 9:35. [facility], , KNEE 3V RIGHT, 12/10/2014, 9:35. FINDINGS: Bones: There is severe medial compartment joint space loss with prominent marginal spurs, progressed since the prior study. Lateral compartment spurring has also progressed. Mild patellofemoral compartment spurring is new. There may be new subcortical cystic changes along the medial aspect of the medial tibial plateau. Soft tissues: No joint effusion. No suspicious soft tissue calcifications. IMPRESSION: 1. Tricompartment osteoarthritic changes, most significant in the medial compartment have progressed since the prior study, now severe. Dictated by: Rossy Mora M.D. on 07/10/2022 at 14:36 Approved by: Rossy Mora M.D. on 07/10/2022 at 14:38
--- NOTE | 2022-07-10 12:17 | DI.RAD.S_ITS ---
PROCEDURE: XR LUMBAR SPINE MIN 4V INDICATIONS: LOW BACK PAIN TECHNIQUE: 5 views of the lumbar spine were acquired, including bilateral oblique views. COMPARISON: [facility], , L-SPINE 2-3 VIEWS, 12/10/2014, 9:35. FINDINGS: Suboptimal imaging due to patient body habitus. Bones: 5 nonrib-bearing vertebrae are present. There is normal bony alignment. No vertebral body compression fractures. Normal lumbar disc spacing. Mild lower thoracic degenerative endplate spurring. No suspicious bony lesions. Soft tissues: Overlying bowel gas pattern is normal. No suspicious soft tissue calcifications. Oblique images: No pars defects. IMPRESSION: 1. Normal lumbar vertebral body height and alignment without pars defects on oblique images. Dictated by: Rossy Mora M.D. on 07/10/2022 at 14:40 Approved by: Rossy Mora M.D. on 07/10/2022 at 14:41
== END ==
PROVIDERS: PCP Family Medicine; Referring Provider Anesthesiology; Visit Provider Anesthesiology
DX: M17.0 Bilateral primary osteoarthritis of knee (principal); M54.50 Low back pain, unspecified; M25.562 Pain in left knee; M25.561 Pain in right knee; G89.29 Other chronic pain
CPT/HCPCS: 72110; 73562; 99214

== ENCOUNTER 2022-08-18 19:29 | Emergency (ER) | payer MEDICARE, MEDICAID, SELFPAY ==
[2019-11-17 02:44] VITALS: BMI 71.8
[2022-08-18 19:30] VITALS: BP 133/82; PULSE 96; RESP 18; TEMP 36.5; O2SAT 94; BMI 71.2
--- NOTE | 2022-08-18 22:06 | ED_ITS ---
HPI - Extremity Injury (Lower) General Chief Complaint: Extremity Injury, Lower Stated Complaint: Bilat knee pain, acute on chronic Time Seen by Provider: 08/18/22 21:27 Source: patient and EMS Mode of arrival: EMS History of Present Illness HPI Narrative: 47-year-old female who has chronic bilateral knee pain and arthritis and fibromyalgia. 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 Has known arthritis. States that today she started having increasing pain in her right knee. She states that it hurts so bad that she could not get up off of the toilet. Her left knee is hurting but she thinks that is because she is had to change how she walks because of the pain in her right knee. It was not 1 specific incident although when she was trying to get up off toilet she felt a ?pop? in her right leg. She is a cane to walk at baseline. Related Data Home Medications Medication Instructions Recorded Confirmed multivitamin 1 tab PO DAILY 08/21/19 07/10/22 ipratropium 0.5 mg-albuterol 3 mg 3 ml INH Q6HP PRN wheezing/ 12/16/19 07/10/22 (2.5 mg base)/3 mL nebulization shortness of breath soln loratadine 10 mg capsule 10 mg PO DAILY 04/26/20 07/10/22 doxycycline monohydrate 100 mg 100 mg PO BID 09/25/20 07/10/22 capsule Previous Rx's Medication Instructions Recorded QUAD CANE #1 ea 05/08/18 GRAB BARS FOR SHOWER #3 ea 04/21/19 nystatin 100,000 unit/gram topical 1 applictn topical TID #60 grams 11/19/19 powder [id number] 3.5 4 drp EAR-RIGHT BID #10 mL 05/05/20 mg-10,000 unit/mL-1 % ear drops,susp ondansetron 4 mg disintegrating 4 mg PO Q6H PRN nausea and 12/06/20 tablet vomiting #20 tabs albuterol sulfate 90 mcg/actuation 2 puff inhalation Q4-6H PRN 11/02/21 aerosol inhaler (Ventolin HFA) Shortness Of Breath #18 grams fluticasone furoate 200 1 inh inhalation DAILY #60 ea 11/02/21 mcg-vilanterol 25 mcg/dose inhalation powder (Breo Ellipta) montelukast 10 mg tablet 10 mg PO DAILY #90 tabs 11/02/21 propranolol 20 mg tablet 20 mg PO BID #60 tabs 11/02/21 Disabled Parking Permit #1 ea 05/24/22 hydrocodone 5 mg-acetaminophen 325 1 tab PO Q8H PRN pain #30 tabs 05/25/22 mg tablet diclofenac sodium 1 % topical gel 4 g topical QID #100 grams 07/10/22 Allergies Allergy/AdvReac Type Severity Reaction Status Date / Time shellfish derived Allergy Intermediate Rash Verified 08/18/22 19:39 latex Allergy Rash Verified 08/18/22 19:39 oxycodone [OXYCODONE] AdvReac Intermediate Irritabilit Verified 08/18/22 19:39 y Review of Systems Constitutional Constitutional: Reports system reviewed and no additional complaints, except as documented Musculoskeletal Musculoskeletal: Reports system reviewed and no additional complaints, except as documented Integumentary/Breasts Skin/Breast: Reports system reviewed and no additional complaints, except as documented Neurologic Neurologic: Reports system reviewed and no additional complaints, except as documented Patient History Medical History Adnexal mass Asthma Concentric left ventricular hypertrophy (~05/2017) Fibromyalgia Hypertension Hypertriglyceridemia Inflamed acrochordon Kidney stones Low back pain Lymphedema Migraines Moderate persistent asthma Ovarian cyst (03/28/15) Pneumonia (2008) RBC microcytosis Restless legs Restrictive lung disease Sleep apnea Strain of right biceps muscle Tympanic membrane perforation, nontraumatic UTI (urinary tract infection) Wound infection Wound of right lower extremity Surgical History History of History of esophagogastroduodenoscopy (EGD) (~04/2015) History of hernia repair History of laparoscopic appendectomy (03/28/15) History of ovarian cystectomy History of placement of ear tubes History of tonsillectomy Family History Father No problems noted. Mother Atrial fibrillation Grandfather No problems noted. Grandmother No problems noted. Grandfather No problems noted. Grandmother No problems noted. Sister No problems noted. Son Dyskeratosis congenita Social History household members: family Smoking Status: Former smoker Tobacco: How many years used: 17 second hand exposure: No alcohol intake: former Smoking Status: Former smoker alcohol intake frequency: other Substance Use Type: does not use Exam Initial Vital Signs Initial Vital Signs: Vital Signs Temperature 97.7 F 08/18/22 19:30 Pulse Rate 96 H 08/18/22 19:30 Respiratory Rate 18 08/18/22 19:30 Blood Pressure 133/82 08/18/22 19:30 Pulse Oximetry 94 08/18/22 19:30 Oxygen Delivery Method Room Air 08/18/22 19:30 HENMT Head: normal to inspection and normocephalic Skin General: no rashes or lesions noted Extrem Other: Difficult to examine the knee given her weight. There are no gross deformities. Course Orders Ordered: ED Orders 08/18/22 22:07 XR knee RT 1to2V Stat Discontinued Medications Hydrocodone Bitart/Acetaminophen (Hydrocodone/Acet 5/325 Tablet) 1 tab PO NOW ONE Stop: 08/18/22 22:08 Last Admin: 08/18/22 22:41 Dose: 1 tab Documented By: SRINI Hydrocodone Bitart/Acetaminophen (Hydrocodone/Acet 5/325 Prepack) 1 bottle MISC SEEINSTR ONE Stop: 08/18/22 22:47 Last Admin: 08/18/22 23:22 Dose: 1 bottle Documented By: SRINI Vital Signs Vital signs: Vital Signs - 8 hr 08/18/22 19:30 Temperature 97.7 F Pulse Rate 96 H Respiratory Rate 18 Blood Pressure 133/82 Pulse Oximetry 94 Oxygen Delivery Method Room Air MDM - Extremity Injury (Lower) Imaging Data Extremity x-ray #1: Radiologist's Impression: PROCEDURE:? XR KNEE RT 1TO2V ? INDICATIONS:? R knee pain after hearing a POP ? TECHNIQUE:? 2 views of the knee were acquired.? ? COMPARISON:? [facility], [place], XR KNEE RT 3V, 07[facility]10[facility]2022[facility] 12:17[facility], [facility]17[facility], 9:35. ? FINDINGS:? ? Bones:? Moderate to severe degenerative changes, particularly the medial compartment.? No displaced fracture or dislocation.? Evaluation is limited by body habitus. ? Soft tissues:? Lateral view is suboptimal to see the suprapatellar region. ? ? IMPRESSION:? Suboptimal two view radiographs without acute abnormality.? If there is high concern for further derangement, consider MRI evaluation. ? Moderate to severe degenerative changes.? MDM Narrative Medical decision making narrative: X-ray of the right knee does not show any acute pathology. Low suspicion for fracture. Low suspicion for infection. Low suspicion for gout. No skin changes over the area. Unfortunately other than trying to control the symptoms there is not much more we can do for her out of the emergency department. There is no indication for admission the hospital. She was able to stand from the wheelchair and move to the bed. Informed her that she can put weight on her legs despite the fact that it does hurt her. She does not need to follow-up with her primary doctor and also her clock and watch hands painter. Discharge Plan Departure Patient Disposition: Home Clinical Impression: Arthritis Instructions: How to Choose and Use a Walker, DI for Arthritis Activity Restrictions/Additional Instructions: The x-ray today did not show any signs of a fracture. Despite the discomfort you can walk on your knees as tolerated. You are going to need to follow-up with your primary care doctor, physical therapist and clock and watch hands painter. You may need to get a referral from your primary doctor to see Orthopedic surgery. Continue to take the rest of your medications as directed. Prescriptions: No Action (DME) QUAD CANE Qty: 1 0RF Dose Instruction: As directed Rx Instructions: Use to assist with walking [id number] 3.5-10,000-1 mg/mL-unit/mL-% drops,suspension 4 drp EAR-RIGHT BID Qty: 10 0RF ondansetron 4 mg tablet,disintegrating 4 mg PO Q6H PRN (Reason: nausea and vomiting) Qty: 20 1RF (DME) Disabled Parking Permit See Rx Instructions .Route .MEDSUPPLY Qty: 1 0RF Rx Instructions: I find this patient to be medically disabled and qualified for disabled parking as indicated, and signed, on the accompanying application hydrocodone-acetaminophen 5-325 mg tablet 1 tab PO Q8H PRN (Reason: pain) Qty: 30 0RF (DME) GRAB BARS FOR SHOWER Qty: 3 0RF Rx Instructions: 3 Grab bars needed for shower to prevent falls loratadine 10 mg capsule 10 mg PO DAILY doxycycline monohydrate 100 mg capsule 100 mg PO BID multivitamin Tablet 1 tab PO DAILY albuterol sulfate [Ventolin HFA] 90 mcg/actuation HFA aerosol inhaler 2 puff INHALATION Q4-6H PRN (Reason: Shortness Of Breath) Qty: 18 3RF Breo Ellipta 200-25 mcg/dose blister with device 1 inh INHALATION DAILY Qty: 60 5RF montelukast 10 mg tablet 10 mg PO DAILY Qty: 90 1RF propranolol 20 mg tablet 20 mg PO BID Qty: 60 5RF nystatin 100,000 unit/gram powder 1 applictn TOP TID Qty: 60 3RF Rx Instructions: Apply up to 3 times daily prn to underarms and in the a.m. to leg creases ipratropium-albuterol 3 ML solution for nebulization 3 ml INH Q6HP PRN (Reason: wheezing/ shortness of breath) diclofenac sodium 1 % gel 4 g topical QID Qty: 100 2RF Rx Instructions: apply to single knee, ankle, foot; for foot includes sole/toes/top of foot Referrals: Bandar Rees DO [Primary Care Provider] - Stand Alone Forms: Patient Portal/API
--- NOTE | 2022-08-18 22:07 | DI.RAD.S_ITS ---
PROCEDURE: XR KNEE RT 1TO2V INDICATIONS: R knee pain after hearing a POP TECHNIQUE: 2 views of the knee were acquired. COMPARISON: [facility], [place], XR KNEE RT 3V, 07/10/2022, 12:17. [facility], CR, XR KNEE LT 3V, 07/10/2022, 12:17. [facility], CR, KNEE 3V RIGHT, 12/10/2014, 9:35. FINDINGS: Bones: Moderate to severe degenerative changes, particularly the medial compartment. No displaced fracture or dislocation. Evaluation is limited by body habitus. Soft tissues: Lateral view is suboptimal to see the suprapatellar region. IMPRESSION: Suboptimal two view radiographs without acute abnormality. If there is high concern for further derangement, consider MRI evaluation. Moderate to severe degenerative changes. Dictated by: Shiv Babcock M.D. on 08/18/2022 at 22:37 Approved by: Shiv Babcock M.D. on 08/18/2022 at 22:38
[2022-08-18] MEDS: HYDROCODONE/ACET 5/325 TABLET 1 TAB PO (22:41)
[2022-08-18] MEDS: HYDROCODONE/ACET 5/325 PREPACK 1 BOTTLE MISC (23:22)
== END 2022-08-18 23:24 | disposition home or self-care (01) ==
PROVIDERS: Emergency Provider Emergency Medicine; PCP Family Medicine
DX: M17.0 Bilateral primary osteoarthritis of knee (principal)
CPT/HCPCS: 73560; 99283

== ENCOUNTER → 2022-09-02 10:41 | Outpatient (CLI) | payer MEDICARE, MEDICAID, SELFPAY ==
[2019-11-17 02:44] VITALS: BMI 71.8
--- NOTE | 2022-09-02 10:43 | DI.MRI.S_ITS ---
PROCEDURE: MR KNEE RT WO CON INDICATIONS: Progressive R knee pain TECHNIQUE: Noncontrast sagittal PD fast spin echo and T2 fast spin echo with fat saturation, sagittal 3-D FLASH with fat saturation; coronal T1 spin echo and PD fast spin echo with fat saturation, and axial PD fast spin echo with fat saturation through the knee. COMPARISON: [facility], CR, XR KNEE RT 3V, 07/10/2022, 12:17. FINDINGS: Image quality: Degraded by body habitus Menisci: Medial extrusion of the medial meniscus. Linear oblique high T2 signal intensity within the inner, middle, and peripheral thirds of the medial meniscal body, demonstrating inferior articular surface extension, indicating oblique tearing. There appears to be in anteroposterior bucket-handle type tear of the lateral meniscus with anterior displacement of the posterior horn. Cruciate ligaments: The anterior and posterior cruciate ligaments appear intact. Medial structures: The medial collateral ligament appears intact. Visualized portions of the pes anserinus tendons appear normal. No abnormal bursal fluid. Lateral structures: The lateral collateral ligament, long and short heads of the biceps femoris tendon appear intact. The popliteus tendon appears normal. Iliotibial band appears normal. Anterior structures: The quadriceps and patellar tendons appear intact. Patellar alignment is normal. No femoral trochlear dysplasia or ventral trochlear prominence. No edema in the infrapatellar fat pad. Bones and cartilage: No bone marrow contusions or fractures. Diffuse red marrow reconversion. Severe tricompartmental periarticular osteophyte formation. Severe articular cartilage loss diffusely overlies the weight-bearing aspects of the medial femoral condyle and medial tibial plateau. Severe articular cartilage loss overlies the posterior weight-bearing aspects of the lateral femoral condyle and lateral tibial plateau. Articular cartilage fibrillation overlies the medial and lateral patellar facets. Joint space: There is a small knee joint effusion and a trace Rodriguez's cyst. Normal appearing synovial plicae are incidentally noted. IMPRESSION: 1. Tricompartmental osteoarthritis with associated articular cartilage loss. 2. Medial meniscal tearing. 3. Anteroposterior bucket-handle type tear of lateral meniscus. 4. Knee joint effusion and Rodriguez's cyst. Dictated by: Julissa Estrella M.D. on 09/04/2022 at 10:08 Approved by: Julissa Estrella M.D. on 09/04/2022 at 10:11
== END ==
PROVIDERS: PCP Family Medicine; Referring Provider Family Medicine; Visit Provider Family Medicine
DX: S83.241A Other tear of medial meniscus, current injury, right knee, initial encounter (principal); S83.251A Bucket-handle tear of lateral meniscus, current injury, right knee, initial encounter; M25.561 Pain in right knee; M17.11 Unilateral primary osteoarthritis, right knee; M71.21 Synovial cyst of popliteal space [Baker], right knee
CPT/HCPCS: 73721

== ENCOUNTER 2023-03-30 13:33 | Emergency (ER) | payer MEDICARE, MEDICAID, SELFPAY ==
[2022-12-28 16:36] VITALS: BMI 71.8
[2023-03-30 13:41] VITALS: BP 141/67; PULSE 87; RESP 18; TEMP 36.2; O2SAT 96
[2023-03-30 13:49] VITALS: BMI 69.3
[2023-03-30 14:18] LABS: Basophils Absolute Auto 100 /uL (0-100); Basophils Percent Auto 0.7 % (0-2); Eosinophils Absolute Auto 100 /uL (0-450); Eosinophils Percent Auto 1.1 % (2-4); Hemoglobin 8.5 g/dL (12.0-16.0); Lymphocytes Absolute Auto 1600 /uL (1100-4500); Lymphocytes Percent Auto 14.1 % (25-40); Mean Corpuscular HGB Conc 30.5 % (30-36); Mean Corpuscular Hemoglobin 20.1 PG (26-34); Mean Corpuscular Volume 65.8 fL (80-100); Monocytes Absolute Auto 900 /uL (0-900); Monocytes Percent Auto 7.6 % (3-14); Neutrophils Absolute Auto 9000 /uL (1500-7000); Neutrophils Percent Auto 76.5 % (50-75); Platelet Count 211 X10^3/uL (150-400); Red Blood Cell Count 4.25 X10^6/uL (4.0-5.2); Red Cell Distribution Width 20.7 % (11.6-14.8); White Blood Cell Count 11.7 X10^3/uL (4.5-11.0)
[2023-03-30 14:21] LABS: Add Manual Diff / Slide Review SLIDE REVIEW
[2023-03-30 14:28] LABS: Alanine Aminotransferase 16 IU/L (<35); Albumin 3.8 g/dL (3.5-5.0); Albumin Globulin Ratio 1.1 (1.0-2.8); Alkaline Phosphatase 56 U/L (38-126); Aspartate Aminotransferase 20 IU/L (14-36); BUN Creatinine Ratio 20.8 (6-22); Bilirubin Total 0.6 mg/dL (0.2-1.3); Blood Urea Nitrogen 11 mg/dL (7-17); Calcium 9.6 mg/dL (8.4-10.2); Carbon Dioxide 27 mmol/L (22-32); Chloride 102 mmol/L (98-107); Estimated Glomerular Filt Rate > 60 mL/min (>60); Globulin 3.4 g/dL (1.7-4.1); Glucose 116 mg/dL (70-100); HEMOLYSIS < 15 (0-50); Lipase 44 U/L (23-300); Sodium 136 mmol/L (137-145); Total Protein 7.2 g/dL (6.3-8.2)
[2023-03-30 14:32] LABS: Anisocytosis 2+
--- NOTE | 2023-03-30 14:49 | ED_ITS ---
HPI - General Adult General Chief complaint: Abdominal Pain Stated complaint: SHARP R/ABD PAIN,NAUSEA Time Seen by Provider: 03/30/23 13:52 Source: patient Mode of arrival: Wheelchair History of Present Illness HPI narrative: Patient is a 47-year-old female. Has had a , appendectomy and has had her right ovary removed secondary to cysts. Is here for evaluation of right- sided abdominal pain. Is also having nausea. Has had diarrhea for the past week and a half. Having bowel movements does not change the pain. She is had kidney stones in the past but feels that this is not necessarily like prior stones. His quite a bit of nausea. Vomited 1 time. No fevers. She has tried nausea medication at home. Related Data Home Medications Medication Instructions Recorded Confirmed multivitamin 1 tab PO DAILY 08/21/19 01/11/23 Previous Rx's Medication Instructions Recorded QUAD CANE #1 ea 05/08/18 GRAB BARS FOR SHOWER #3 ea 04/21/19 nystatin 100,000 unit/gram topical 1 applictn topical TID #60 grams 11/19/19 powder [id number] 3.5 4 drp EAR-RIGHT BID #10 mL 05/05/20 mg-10,000 unit/mL-1 % ear drops,susp ondansetron 4 mg disintegrating 4 mg PO Q6H PRN nausea and 12/06/20 tablet vomiting #20 tabs fluticasone furoate 200 1 inh inhalation DAILY #60 ea 11/02/21 mcg-vilanterol 25 mcg/dose inhalation powder (Breo Ellipta) Disabled Parking Permit #1 ea 05/24/22 gabapentin 100 mg capsule 100 mg PO BID #180 caps 11/22/22 fluticasone 250 mcg-salmeterol 50 1 inh inhalation BID #60 ea 01/11/23 mcg/dose blistr powdr for inhalation (Advair Diskus) albuterol sulfate 90 mcg/actuation 2 puff inhalation Q4-6H PRN 02/26/23 aerosol inhaler (Ventolin HFA) Shortness Of Breath #18 grams hydrocodone 5 mg-acetaminophen 325 1 tab PO BID PRN pain #60 tabs 03/14/23 mg tablet loratadine 10 mg capsule 10 mg PO DAILY #90 caps 03/14/23 methocarbamol 500 mg tablet 500 mg PO TID PRN mm spasm #60 tabs 03/14/23 montelukast 10 mg tablet 10 mg PO DAILY #90 tabs 03/14/23 nebulizer #1 ea 03/14/23 omeprazole 20 mg capsule,delayed 20 mg PO DAILY #90 caps 03/14/23 release ondansetron HCl 8 mg tablet 8 mg PO Q12H PRN nausea and 03/14/23 vomiting #20 tabs propranolol 20 mg tablet 20 mg PO BID #60 tabs 03/14/23 ipratropium 0.5 mg-albuterol 3 mg 3 ml inhalation Q6HP PRN wheezing/ 03/20/23 (2.5 mg base)/3 mL nebulization shortness of breath #90 mL soln cephalexin 500 mg capsule 500 mg PO BID 5 days #10 caps 03/30/23 Allergies Allergy/AdvReac Type Severity Reaction Status Date / Time shellfish derived Allergy Intermediate Rash Verified 03/30/23 13:41 latex Allergy Rash Verified 03/30/23 13:41 oxycodone [OXYCODONE] AdvReac Intermediate Irritabilit Verified 03/30/23 13:41 y Review of Systems Review of Systems ROS Unobtainable: All systems reviewed & are unremarkable except as noted in HPI and below Patient History Medical History Reflux esophagitis Osteoarthritis of knees, bilateral Knee pain, bilateral Lateral meniscus tear Medial meniscus tear Low back pain Asthma Restless legs RBC microcytosis Fibromyalgia Inflamed acrochordon Strain of right biceps muscle Tympanic membrane perforation, nontraumatic UTI (urinary tract infection) Adnexal mass Restrictive lung disease Moderate persistent asthma Wound infection Concentric left ventricular hypertrophy (~05/2017) Kidney stones Wound of right lower extremity Lymphedema Ovarian cyst (03/28/15) Pneumonia (2008) Hypertension Migraines Sleep apnea Hypertriglyceridemia Surgical History History of esophagogastroduodenoscopy (EGD) (~04/2015) History of History of hernia repair History of laparoscopic appendectomy (03/28/15) History of ovarian cystectomy History of placement of ear tubes History of tonsillectomy Family History Father No problems noted. Mother Atrial fibrillation Grandfather No problems noted. Grandmother No problems noted. Grandfather No problems noted. Grandmother No problems noted. Sister No problems noted. Son Dyskeratosis congenita Social History household members: family Smoking Status: Former smoker Tobacco: How many years used: 17 second hand exposure: No alcohol intake: former Smoking Status: Former smoker alcohol intake frequency: other Substance Use Type: does not use Exam Initial Vital Signs Initial Vital Signs: Vital Signs Temperature 97.1 F L 03/30/23 13:41 Pulse Rate 87 03/30/23 13:41 Respiratory Rate 18 03/30/23 13:41 Blood Pressure 141/67 H 03/30/23 13:41 Pulse Oximetry 96 03/30/23 13:41 Oxygen Delivery Method Room Air 03/30/23 13:41 HENMT Head: normal to inspection and normocephalic Resp Effort & Inspection: normal respiratory effort Auscultation: clear to auscultation bilaterally Cardio Rate: regular rate Rhythm: regular rhythm GI Inspection: normal to inspection and non-distended Palpation: soft, No firm, No guarding and tender (Right-sided abdomen) Neuro General: patient alert, patient awake and moves all extremities Extrem General: capillary refill normal Course Orders Ordered: ED Orders 03/30/23 14:08 Complete Blood Count AUTO DIFF Stat Comprehensive Metabolic Panel Stat Lipase Stat 03/30/23 14:37 Urinalysis and Microscopic Stat Urine Culture Stat 03/30/23 14:52 CT abdomen pelvis w con Stat Discontinued Medications Cephalexin HCl (Cephalexin 250 Mg Capsule) 500 mg PO NOW ONE Stop: 03/30/23 16:11 Last Admin: 03/30/23 16:22 Dose: 500 mg Documented By: TATYANA Morphine Sulfate (Morphine 4 Mg/Ml Inj) 4 mg IV NOW ONE Stop: 03/30/23 14:52 Last Admin: 03/30/23 15:24 Dose: 4 mg Documented By: KENNY Ondansetron HCl (Ondansetron 4 Mg Odt) 4 mg PO NOW PRN PRN Reason: Nausea And Vomiting Ondansetron HCl (Ondansetron 4 Mg/2 Ml Inj) 4 mg IV NOW PRN PRN Reason: Nausea And Vomiting Ondansetron HCl (Ondansetron 4 Mg/2 Ml Inj) 4 mg IV NOW ONE Stop: 03/30/23 14:52 Last Admin: 03/30/23 15:24 Dose: 4 mg Documented By: [facility] Vital Signs Vital signs: Vital Signs - 8 hr 03/30/23 13:41 03/30/23 15:27 03/30/23 15:30 Temperature 97.1 F L Pulse Rate 87 84 84 Respiratory Rate 18 Blood Pressure 141/67 H Pulse Oximetry 96 94 91 Oxygen Delivery Method Room Air 03/30/23 15:35 03/30/23 15:35 03/30/23 16:33 Temperature Pulse Rate 86 89 Respiratory Rate 12 Blood Pressure 135/62 135/63 Pulse Oximetry 89 L 96 Oxygen Delivery Method Medical Decision Making Lab Data Lab results reviewed: Yes I reviewed the patient's lab results. 03/30/23 14:08 03/30/23 14:08 Labs: Lab Results 03/30/23 03/30/23 Range/Units 14:08 14:37 WBC 11.7 H (4.5-11.0) X10^3/uL RBC 4.25 (4.0-5.2) X10^6/uL Hgb 8.5 L (12.0-16.0) g/dL Hct 28.0 L (36-46) % MCV 65.8 L (80-100) fL MCH 20.1 L (26-34) PG MCHC 30.5 (30-36) % RDW 20.7 H (11.6-14.8) % Plt Count 211 (150-400) X10^3/uL Neut % (Auto) 76.5 H (50-75) % Lymph % (Auto) 14.1 L (25-40) % [place] % (Auto) 7.6 (3-14) % Eos % (Auto) 1.1 L (2-4) % Baso % (Auto) 0.7 (0-2) % Neut # (Auto) 9000 H (4769-7789) /uL Lymph # (Auto) 1600 (1367-4379) /uL [place] # (Auto) 900 (0-900) /uL Eos # (Auto) 100 (0-450) /uL Baso # (Auto) 100 (0-100) /uL RBC Morphology See below Anisocytosis 2+ H Sodium 136 L (137-145) mmol/L Potassium 4.0 (3.4-5.1) mmol/L Chloride 102 (98-107) mmol/L Carbon Dioxide 27 (22-32) mmol/L BUN 11 (7-17) mg/dL Creatinine 0.53 (0.52-1.04) mg/dL Estimated GFR > 60 (>60) mL/min BUN/Creatinine Ratio 20.8 (6-22) Glucose 116 H (70-100) mg/dL Calcium 9.6 (8.4-10.2) mg/dL Total Bilirubin 0.6 (0.2-1.3) mg/dL AST 20 (14-36) IU/L ALT 16 (<35) IU/L Alkaline Phosphatase 56 (38-126) U/L Total Protein 7.2 (6.3-8.2) g/dL Albumin 3.8 (3.5-5.0) g/dL Globulin 3.4 (1.7-4.1) g/dL Albumin/Globulin Ratio 1.1 (1.0-2.8) Lipase 44 (23-300) U/L Urine Color Yellow Urine Appearance Cloudy Urine pH 6.5 (4.5-8.0) Ur Specific [place] 1.020 (1.000-1.035) Urine Protein 1+ H (Negative) Urine Glucose (UA) Negative (Negative) g/dL Urine Ketones Negative (NEGATIVE) Urine Occult Blood 3+ H (Negative) Urine Nitrate Positive H (Negative) Urine Bilirubin Negative (NEGATIVE) Urine Urobilinogen 0.2 (0.2) E.U./dL Ur Leukocyte Esterase 2+ H (NEGATIVE) Urine RBC 5-10/hpf H (0-5/HPF) Urine WBC 30-100/hpf H (0-5/HPF) Ur Squamous Epith Cells 1-5 /hpf D (0-5/HPF) Urine Bacteria Many (>30) H (None) Ur Culture Indicated? Specimen cultured Point of Care Testing Test Results Negative Point of care testing: Point of Care Testing Test Results Negative Imaging Data CT scan - abdomen/pelvis: Radiologist's Impression: PROCEDURE: CT ABDOMEN PELVIS W CON INDICATIONS: Right-sided flank/abdominal pain. The patient reports prior right ovarian resection, no in large multi cystic left ovarian mass, prior appendectomy. TECHNIQUE: After the administration of intravenous contrast, axial sections acquired from the lung bases to the pubic symphysis. Coronal and sagittal reformats were performed. For radiation dose reduction, the following was used: automated exposure control, adjustment of mA and/or kV according to patient size. COMPARISON: [facility], CT, CT ABDOMEN PELVIS W CON, 05/13/2020, 20:48. FINDINGS: Image quality: Excellent. Lung bases: Unremarkable. Heart: No significant findings. ABDOMEN: Liver: Diffuse mildly heterogeneous fatty infiltration, hepatomegaly measuring up to 32 cm craniocaudad.. Gallbladder: Unremarkable. Biliary ducts: Unremarkable. Pancreas: Unremarkable. Spleen: Mildly enlarged at 13 cm craniocaudad.. Adrenal Glands: Unremarkable. Kidneys and Ureters: Unremarkable except for a punctate lower 3rd right renal collecting system calculus, nonobstructive. Stomach and Bowel: Stomach, small bowel loops, and colon are unremarkable. Peritoneum: No abnormal intraperitoneal fluid. No free air. Ventral Wall: No hernias. Abdominal Nodes: No retroperitoneal or mesenteric adenopathy by size criteria. Vessels: Aorta and inferior vena cava are normal in size. PELVIS: Pelvic Organs: The large multi cystic right adnexal mass has been resected between the comparison study 05/13/20 and the current study. The large multi cystic and partially solid left adnexal mass is again noted. No definite interval enlargement.. Bladder: Unremarkable. Pelvic Nodes: No enlarged lymph nodes. Miscellaneous: A previously present midline low pelvic ventral omental herniation is again seen, into the ventral pannus. No sign of incarceration or strangulation of the involved omentum. Bones: Unremarkable. IMPRESSION: A definite acute process is not found. The patient reported prior appendectomy and resection of a large multi cystic mass from the right adnexa. The large multi cystic mass at the left adnexa remains. No definite enlargement of that area of abnormality is seen. No CT evidence of inflammatory process or neoplasm at the right lower quadrant. Prominent hepatomegaly and fatty infiltration, with the liver measuring up to 32 cm craniocaudad. Mild splenomegaly. No ascites or varices are found. MDM Narrative Medical decision making narrative: Patient does have a nitrite positive urine. His urinating frequently but this is not necessarily new for her. Is having some nausea but no vomiting. CT scan shows no acute pathology. She has had her appendix removed. No signs of kidney stone. Plan will be to treat her with antibiotics. First dose given here in the emergency department. I have low suspicion for pyelo. Will discharge patient home with return precautions. She expressed understanding and agreement. Discharge Plan Departure Patient Disposition: Home Clinical Impression: Abdominal pain, UTI (urinary tract infection) Instructions: DI for Urinary Tract Infection (UTI), DI for Abdominal Pain-Adult Activity Restrictions/Additional Instructions: I do recommend that you take the antibiotics as directed. Continue to take the rest of your medications as directed as well. Contact your primary provider for a follow-up. Return to the emergency department for new symptoms. Prescriptions: New cephalexin 500 mg capsule 500 mg PO BID 5 Days Qty: 10 0RF No Action (DME) QUAD CANE Qty: 1 0RF Dose Instruction: As directed Rx Instructions: Use to assist with walking [id number]-[id number] 3.5-10,000-1 mg/mL-unit/mL-% drops,suspension 4 drp EAR-RIGHT BID Qty: 10 0RF ondansetron 4 mg tablet,disintegrating 4 mg PO Q6H PRN (Reason: nausea and vomiting) Qty: 20 1RF (DME) Disabled Parking Permit See Rx Instructions .Route .MEDSUPPLY Qty: 1 0RF Rx Instructions: I find this patient to be medically disabled and qualified for disabled parking as indicated, and signed, on the accompanying application albuterol sulfate [Ventolin HFA] 90 mcg/actuation HFA aerosol inhaler 2 puff INHALATION Q4-6H PRN (Reason: Shortness Of Breath) Qty: 18 3RF ipratropium-albuterol 0.5 mg-3 mg(2.5 mg base)/3 mL solution for nebulization 3 ml inhalation Q6HP PRN (Reason: wheezing/ shortness of breath) Qty: 90 1RF (DME) GRAB BARS FOR SHOWER Qty: 3 0RF Rx Instructions: 3 Grab bars needed for shower to prevent falls multivitamin Tablet 1 tab PO DAILY Breo Ellipta 200-25 mcg/dose blister with device 1 inh INHALATION DAILY Qty: 60 5RF gabapentin 100 mg capsule 100 mg PO BID Qty: 180 2RF Rx Instructions: 1 PO QHS x3 days If tolerated, 1 PO BID x3 days If tolerated, 1 PO TID hydrocodone-acetaminophen 5-325 mg tablet 1 tab PO BID PRN (Reason: pain) Qty: 60 0RF methocarbamol 500 mg tablet 500 mg PO TID PRN (Reason: mm spasm) Qty: 60 3RF Rx Instructions: due for appt with PCP 02/08/23 (DME) nebulizer See Rx Instructions .Route .MEDSUPPLY Qty: 1 0RF Rx Instructions: Nebulizer and equipment #1, 0 refills Albuterol 2.5 mg/3 mL 1 vial 2 times daily as needed # 60, 11 refills propranolol 20 mg tablet 20 mg PO BID Qty: 60 5RF montelukast 10 mg tablet 10 mg PO DAILY Qty: 90 1RF loratadine 10 mg capsule 10 mg PO DAILY Qty: 90 1RF omeprazole 20 mg capsule,delayed release(DR/EC) 20 mg PO DAILY Qty: 90 1RF ondansetron HCl 8 mg tablet 8 mg PO Q12H PRN (Reason: nausea and vomiting) Qty: 20 1RF nystatin 100,000 unit/gram powder 1 applictn TOP TID Qty: 60 3RF Rx Instructions: Apply up to 3 times daily prn to underarms and in the a.m. to leg creases fluticasone propion-salmeterol [Advair Diskus] 250-50 mcg/dose blister with device 1 inh inhalation BID Qty: 60 5RF Referrals: Bandar Rees DO [Primary Care Provider] - Stand Alone Forms: Patient Portal/API
[2023-03-30 14:51] LABS: Appearance Urine UA CLOUDY; Bilirubin Urine UA NEGATIVE (NEGATIVE); Color Urine UA YELLOW; Glucose Urine UA NEGATIVE (Negative); Ketones Urine UA NEGATIVE (NEGATIVE); Leukocyte Esterase Urine UA 2+ (NEGATIVE); Nitrite Urine UA POSITIVE (Negative); Occult Blood Urine UA 3+ (Negative); Protein Urine UA 1+ (Negative); Urobilinogen Urine UA 0.2 E.U./dL (0.2)
[2023-03-30 14:52] LABS: pH Urine UA 6.5 (4.5-8.0)
--- NOTE | 2023-03-30 14:52 | DI.CT.S_ITS ---
PROCEDURE: CT ABDOMEN PELVIS W CON INDICATIONS: Right-sided flank/abdominal pain. The patient reports prior right ovarian resection, no in large multi cystic left ovarian mass, prior appendectomy. TECHNIQUE: After the administration of intravenous contrast, axial sections acquired from the lung bases to the pubic symphysis. Coronal and sagittal reformats were performed. For radiation dose reduction, the following was used: automated exposure control, adjustment of mA and/or kV according to patient size. COMPARISON: [facility], CT, CT ABDOMEN PELVIS W CON, 05/13/2020, 20:48. FINDINGS: Image quality: Excellent. Lung bases: Unremarkable. Heart: No significant findings. ABDOMEN: Liver: Diffuse mildly heterogeneous fatty infiltration, hepatomegaly measuring up to 32 cm craniocaudad.. Gallbladder: Unremarkable. Biliary ducts: Unremarkable. Pancreas: Unremarkable. Spleen: Mildly enlarged at 13 cm craniocaudad.. Adrenal Glands: Unremarkable. Kidneys and Ureters: Unremarkable except for a punctate lower 3rd right renal collecting system calculus, nonobstructive. Stomach and Bowel: Stomach, small bowel loops, and colon are unremarkable. Peritoneum: No abnormal intraperitoneal fluid. No free air. Ventral Wall: No hernias. Abdominal Nodes: No retroperitoneal or mesenteric adenopathy by size criteria. Vessels: Aorta and inferior vena cava are normal in size. PELVIS: Pelvic Organs: The large multi cystic right adnexal mass has been resected between the comparison study 05/13/20 and the current study. The large multi cystic and partially solid left adnexal mass is again noted. No definite interval enlargement.. Bladder: Unremarkable. Pelvic Nodes: No enlarged lymph nodes. Miscellaneous: A previously present midline low pelvic ventral omental herniation is again seen, into the ventral pannus. No sign of incarceration or strangulation of the involved omentum. Bones: Unremarkable. IMPRESSION: A definite acute process is not found. The patient reported prior appendectomy and resection of a large multi cystic mass from the right adnexa. The large multi cystic mass at the left adnexa remains. No definite enlargement of that area of abnormality is seen. No CT evidence of inflammatory process or neoplasm at the right lower quadrant. Prominent hepatomegaly and fatty infiltration, with the liver measuring up to 32 cm craniocaudad. Mild splenomegaly. No ascites or varices are found. Dictated by: Saud Grimm M.D. on 03/30/2023 at 15:39 Approved by: Saud Grimm M.D. on 03/30/2023 at 15:46
[2023-03-30 15:02] LABS: Bacteria Urine Many (>30); Culture Indicated Urine Specimen Cultured; RBC Urine 5-10/HPF (0-5/HPF); Squamous Epithelial Cell Urine 1-5 /HPF (0-5/HPF); WBC Urine 30-100/HPF (0-5/HPF)
[2023-03-30] MEDS: ONDANSETRON 4 MG/2 ML INJ IV (15:24)
[2023-03-30] MEDS: MORPHINE 4 MG/ML INJ IV (15:24)
[2023-03-30 15:27] VITALS: PULSE 84; O2SAT 94
[2023-03-30 15:30] VITALS: PULSE 84; O2SAT 91
[2023-03-30 15:35] VITALS: BP 135/62; PULSE 86; O2SAT 89
[2023-03-30] MEDS: cephALEXin 250 MG CAPSULE 500 MG PO (16:22)
[2023-03-30 16:33] VITALS: BP 135/63; PULSE 89; RESP 12; O2SAT 96
== END 2023-03-30 16:36 | disposition home or self-care (01) ==
PROVIDERS: Emergency Provider Emergency Medicine; PCP Family Medicine
DX: N39.0 Urinary tract infection, site not specified (principal); R10.9 Unspecified abdominal pain
CPT/HCPCS: 36415; 74177; 80053; 81001; 81025; 83690; 85025; 87077; 87086; 87186; 96374; 96375; 99284; J2270; J2405

== ENCOUNTER → 2023-04-25 11:13 | Outpatient (CLI) | payer MEDICARE, MEDICAID, SELFPAY ==
[2022-12-28 16:36] VITALS: BMI 71.8
== END ==
PROVIDERS: PCP Family Medicine; Visit Provider Physician Assistant
DX: R30.0 Dysuria (principal)
CPT/HCPCS: 87077; 87086; 87186

== ENCOUNTER → 2023-05-03 10:43 | Outpatient (CLI) | payer MEDICARE, MEDICAID, SELFPAY ==
[2022-12-28 16:36] VITALS: BMI 71.8
== END ==
PROVIDERS: PCP Family Medicine; Visit Provider Family Medicine
DX: N39.0 Urinary tract infection, site not specified (principal)
CPT/HCPCS: 87086

== ENCOUNTER 2023-05-07 18:39 | Inpatient (IN) | payer MEDICARE, MEDICAID, SELFPAY ==
[2022-12-28 16:36] VITALS: BMI 71.8
[2023-05-07] VITALS (11 sets, daily range): BP systolic 137–169; BP diastolic 61–86; PULSE 78–92; RESP 13–24; TEMP 37.6; O2SAT 92–95; BMI 68.7
--- NOTE | 2023-05-07 18:47 | DI.RAD.S_ITS ---
PROCEDURE: XR CHEST 1V INDICATIONS: Shortness of breath TECHNIQUE: One view of the chest was acquired. COMPARISON: [facility], CR, XR CHEST FOR PICC 1V, 12/16/2019, 15:38. [facility], CR, XR CHEST FOR PICC 1V, 11/19/2019, 2:20. FINDINGS: Surgical changes and devices: None. Lungs and pleura: Lungs are clear. No pleural effusions or pneumothorax. Mediastinum: Mediastinal contours appear normal. Heart size is normal. Bones and chest wall: No suspicious bony lesions. Overlying soft tissues appear unremarkable. IMPRESSION: No acute cardiopulmonary abnormality is seen. Dictated by: Amilcar Chapman M.D. on 05/07/2023 at 19:13 Approved by: Amilcar Chapman M.D. on 05/07/2023 at 19:14
[2023-05-07 19:13] LABS: Hematocrit 31.4 % (36-46); Hemoglobin 9.7 g/dL (12.0-16.0); Mean Corpuscular HGB Conc 30.9 % (30-36); Mean Corpuscular Volume 64.7 fL (80-100); Platelet Count 285 X10^3/uL (150-400); Red Blood Cell Count 4.86 X10^6/uL (4.0-5.2); Red Cell Distribution Width 20.7 % (11.6-14.8); White Blood Cell Count 10.9 X10^3/uL (4.5-11.0)
[2023-05-07 19:19] LABS: Add Manual Diff / Slide Review YES
[2023-05-07 19:20] LABS: INR 1.2 (0.9-1.3); Prothrombin Time 14.3 SECONDS (9.4-12.5)
[2023-05-07 19:23] LABS: Lactate (Lactic Acid) 1.2 mmol/L (0.7-2.1)
[2023-05-07 19:24] LABS: Alanine Aminotransferase 18 IU/L (<35); Albumin 4.3 g/dL (3.5-5.0); Albumin Globulin Ratio 1.2 (1.0-2.8); Alkaline Phosphatase 61 U/L (38-126); Aspartate Aminotransferase 28 IU/L (14-36); BUN Creatinine Ratio 23.4 (6-22); Blood Urea Nitrogen 11 mg/dL (7-17); Calcium 9.8 mg/dL (8.4-10.2); Carbon Dioxide 27 mmol/L (22-32); Chloride 100 mmol/L (98-107); Estimated Glomerular Filt Rate > 60 mL/min (>60); Globulin 3.7 g/dL (1.7-4.1); Glucose 115 mg/dL (70-100); HEMOLYSIS 34 (0-50); Potassium 4.5 mmol/L (3.4-5.1); Sodium 136 mmol/L (137-145)
[2023-05-07 19:33] LABS: Anisocytosis 2+; Microcytosis 2+; Neutrophils Absolute Manual 8720 /uL (3000-5900); Total Cells Counted 100
[2023-05-07 19:34] LABS: Polychromasia 1+
[2023-05-07 19:35] LABS: NT-proBNP (BNP-Adult 18+) 41 pg/mL (<125); Troponin I < 0.012 ng/mL (0.01-0.034)
[2023-05-07 22:16] LABS: Influenza A - CEPHEID Flu A NEGATIVE (NEGATIVE); Influenza B - CEPHEID Flu B NEGATIVE (NEGATIVE); Respiratory Syncytial Virus Negative (Negative)
[2023-05-07] MEDS: ALBUTEROL 2.5 MG/3 ML NEB (ADULT) INH (22:18)
[2023-05-07 22:19] LABS: COVID-19 CEPHEID 4-PLEX PCR Negative (Negative)
--- NOTE | 2023-05-07 22:42 | ED_ITS ---
HPI - URI/Sore Throat General Chief Complaint: Upper Respiratory Symptoms Stated Complaint: TROUBLE BREATHING/SORE THROAT/COUGH Time Seen by Provider: 05/07/23 22:41 Source: patient and family Mode of arrival: Ambulatory History of Present Illness HPI Narrative: Patient 47-year-old female history of appendectomy, morbid obesity BMI 69, was a, chronic pain, fibromyalgia, lymphedema persistent asthma presenting today with shortness of breath. She reports that this came on quite quickly. She had a quite take a deep breath. She overall does not feel good she feels nauseous at times difficulty breathing no significant fever. No prior hospitalizations or intubations. She has not on home oxygen. She reports a normal oxygen is about 96% whenever she goes to the doctor Related Data Home Medications Medication Instructions Recorded Confirmed multivitamin 1 tab PO DAILY 08/21/19 05/08/23 naproxen 500 mg tablet 500 mg PO BID PRN Pain (Scale 05/08/23 05/08/23 Score 4-6) [id number]-[id number] 3.5 4 drp EAR-RIGHT BID PRN Pain 05/08/23 05/08/23 mg-10,000 unit/mL-1 % ear (Scale Score 4-6) drops,susp nystatin 100,000 unit/gram topical 1 applictn topical TID PRN Rash 05/08/23 05/08/23 powder Previous Rx's Medication Instructions Recorded QUAD CANE #1 ea 05/08/18 GRAB BARS FOR SHOWER #3 ea 04/21/19 Disabled Parking Permit #1 ea 05/24/22 albuterol sulfate 90 mcg/actuation 2 puff inhalation Q4-6H PRN 02/26/23 aerosol inhaler (Ventolin HFA) Shortness Of Breath #18 grams loratadine 10 mg capsule 10 mg PO DAILY #90 caps 03/14/23 methocarbamol 500 mg tablet 500 mg PO TID PRN mm spasm #60 tabs 03/14/23 montelukast 10 mg tablet 10 mg PO DAILY #90 tabs 03/14/23 nebulizer #1 ea 03/14/23 omeprazole 20 mg capsule,delayed 20 mg PO DAILY #90 caps 03/14/23 release ondansetron HCl 8 mg tablet 8 mg PO Q12H PRN nausea and 03/14/23 vomiting #20 tabs propranolol 20 mg tablet 20 mg PO BID #60 tabs 03/14/23 ipratropium 0.5 mg-albuterol 3 mg 3 ml inhalation Q6HP PRN wheezing/ 03/20/23 (2.5 mg base)/3 mL nebulization shortness of breath #90 mL soln prochlorperazine maleate 10 mg 10 mg PO TID PRN nausea and 04/05/23 tablet (Compazine) vomiting #30 tabs hydrocodone 5 mg-acetaminophen 325 1 tab PO BID PRN pain #60 tabs 04/19/23 mg tablet Allergies Allergy/AdvReac Type Severity Reaction Status Date / Time shellfish derived Allergy Intermediate Rash Verified 05/03/23 10:52 latex Allergy Rash Verified 05/03/23 10:52 oxycodone [OXYCODONE] AdvReac Intermediate Irritabilit Verified 05/03/23 10:52 y Patient History Medical History Diarrhea Reflux esophagitis Osteoarthritis of knees, bilateral Knee pain, bilateral Lateral meniscus tear Medial meniscus tear Low back pain Asthma Restless legs RBC microcytosis Fibromyalgia Inflamed acrochordon Strain of right biceps muscle Tympanic membrane perforation, nontraumatic UTI (urinary tract infection) Adnexal mass Restrictive lung disease Moderate persistent asthma Wound infection Concentric left ventricular hypertrophy (~05/2017) Kidney stones Wound of right lower extremity Lymphedema Ovarian cyst (03/28/15) Pneumonia (2008) Hypertension Migraines Sleep apnea Hypertriglyceridemia Surgical History History of esophagogastroduodenoscopy (EGD) (~04/2015) History of History of hernia repair History of laparoscopic appendectomy (03/28/15) History of ovarian cystectomy History of placement of ear tubes History of tonsillectomy Family History Father No problems noted. Mother Atrial fibrillation Grandfather No problems noted. Grandmother No problems noted. Grandfather No problems noted. Grandmother No problems noted. Sister No problems noted. Son Dyskeratosis congenita Social History household members: family Smoking Status: Former smoker Tobacco: How many years used: 17 second hand exposure: No alcohol intake: former Smoking Status: Former smoker alcohol intake frequency: other Substance Use Type: does not use Exam Initial Vital Signs Initial Vital Signs: Vital Signs Temperature 99.6 F 05/07/23 18:42 Pulse Rate 90 05/07/23 18:42 Respiratory Rate 24 05/07/23 18:42 Blood Pressure 154/72 H 05/07/23 18:42 Pulse Oximetry 93 05/07/23 18:42 Oxygen Delivery Method Room Air 05/07/23 18:42 GENERAL: Morbid obesity 47-year-old female appears to not feel well BMI 69 HEENT: Head atraumatic,EOMI, pupils reactive, face symmetric, moist mucous membranes CARDIOVASCULAR: Regular rate and rhythm without murmurs, rubs or gallops. RESPIRATORY: Significantly decreased breath sounds bilaterally, mild tachypnea ABDOMEN: Soft, nontender. Normoactive bowel sounds all 4 quadrants. No guarding or rebound. EXTREMITIES: Normal range of motion, no clubbing or edema. Neurovascularly intact NEUROLOGICAL: Alert and oriented x4. SKIN: Warm, dry, no laceration, no petechiae, no rashes or lesions. Course Orders Ordered: ED Orders 05/07/23 21:30 Covid-19 + FLU A/B + RSV - PCR Stat Acetaminophen (Acetaminophen 325 Mg Tablet) 650 mg PO Q6H PRN PRN Reason: Fever/Mild Pain (1-3) Hydrocodone Bitart/Acetaminophen (Hydrocodone/Acet 5/325 Tablet) 1 tab PO BID PRN PRN Reason: pain Last Admin: 05/08/23 05:36 Dose: 1 tab Documented By: MS Al Hydrox/Mg Hydrox/Simethicone (Mag Hydrox/Alum/Simeth 30 Ml Udc) 30 ml PO Q6HR PRN PRN Reason: Dyspepsia Albuterol (Albuterol 2.5 Mg/3 Ml Neb (Adult)) 2.5 mg INH Q4HRWA CHANDA Albuterol (Albuterol 2.5 Mg/3 Ml Neb (Adult)) 2.5 mg INH Q2HR PRN PRN Reason: Shortness Of Breath Albuterol/Ipratropium (Albuterol/Ipratropium 3 Ml Ampul) 3 ml INH QID CHANDA Budesonide (Budesonide 0.5 Mg/2 Ml Neb) 0.5 mg INH RTBID [facility] Enoxaparin Sodium (Enoxaparin 40 Mg/0.4 Ml Syringe) 40 mg SUBCUT DAILY [facility] Gabapentin (Gabapentin 100 Mg Capsule) 100 mg PO BID [facility] Loratadine (Loratadine 10 Mg Tablet) 10 mg PO DAILY [facility] Methylprednisolone (Methylprednisolone 125 Mg/2 Ml Vial) 80 mg IV Q12H [facility] Montelukast Sodium (Montelukast 10 Mg Tablet) 10 mg PO DAILY [facility] Naloxone HCl (Naloxone 0.4 Mg/Ml Vial) 0.2 mg IV Q2MIN PRN PRN Reason: Opiate Reversal N (Prochlorperazine Maleate [Compazine] 10 Mg Tablet) 10 mg PO TID PRN PRN Reason: nausea and vomiting Ondansetron HCl (Ondansetron 4 Mg Odt) 4 mg PO Q8HR PRN PRN Reason: Nausea And Vomiting Pantoprazole Sodium (Pantoprazole Dr 20 Mg Tablet) 20 mg PO DAILY [facility] Propranolol HCl (Propranolol 10 Mg Tablet) 20 mg PO BID [facility] Discontinued Medications Albuterol (Albuterol 2.5 Mg/3 Ml Neb (Adult)) 2.5 mg INH NOW ONE Stop: 05/07/23 21:31 Last Admin: 05/07/23 22:18 Dose: 2.5 mg Documented By: EVER Albuterol (Albuterol 2.5 Mg/3 Ml Neb (Adult)) 10 mg INH NOW ONE Stop: 05/07/23 23:02 Last Admin: 05/07/23 23:50 Dose: 10 mg Documented By: LAILA Methylprednisolone (Methylprednisolone 125 Mg/2 Ml Vial) 125 mg IV NOW ONE Stop: 05/07/23 23:02 Last Admin: 05/07/23 23:08 Dose: 125 mg Documented By: EVER Non-Formulary Medication (Fluticasone Propion-Salmeterol [Advair Diskus]) 1 inhalation INHALATION BID [facility] Vital Signs Vital signs: Vital Signs - 8 hr 05/07/23 22:30 05/07/23 22:30 05/07/23 23:00 Pulse Rate 79 92 H Respiratory Rate 17 22 Blood Pressure 155/67 H Pulse Oximetry 94 Oxygen Delivery Method Room Air Oxygen Flow Rate 05/07/23 23:01 05/07/23 23:01 05/07/23 23:30 Pulse Rate 89 81 Respiratory Rate 17 17 Blood Pressure 162/61 H Pulse Oximetry 95 94 Oxygen Delivery Method Room Air Oxygen Flow Rate 05/07/23 23:31 05/07/23 23:31 05/07/23 23:39 Pulse Rate 90 Respiratory Rate 16 Blood Pressure 169/68 H 154/68 H Pulse Oximetry 94 Oxygen Delivery Method Room Air Oxygen Flow Rate 05/07/23 23:39 05/08/23 00:00 05/08/23 00:01 Pulse Rate 83 82 Respiratory Rate 16 Blood Pressure 173/74 H Pulse Oximetry 93 91 Oxygen Delivery Method Room Air Nasal Cannula Oxygen Flow Rate 2 05/08/23 00:01 05/08/23 00:30 05/08/23 00:31 Pulse Rate 83 92 H 94 H Respiratory Rate 19 18 19 Blood Pressure Pulse Oximetry 92 92 Oxygen Delivery Method Nasal Cannula Nasal Cannula Oxygen Flow Rate 2 2 05/08/23 00:31 05/08/23 01:00 05/08/23 01:22 Pulse Rate 102 H 102 H Respiratory Rate Blood Pressure 172/79 H Pulse Oximetry Oxygen Delivery Method Oxygen Flow Rate 05/08/23 01:22 05/08/23 01:30 05/08/23 01:30 Pulse Rate 101 H Respiratory Rate 13 Blood Pressure 141/64 H 146/65 H Pulse Oximetry 92 Oxygen Delivery Method Nasal Cannula Oxygen Flow Rate 2 05/08/23 02:00 05/08/23 02:00 05/08/23 02:03 Pulse Rate 100 H Respiratory Rate 23 Blood Pressure 149/66 H Pulse Oximetry 91 94 Oxygen Delivery Method Nasal Cannula Nasal Cannula Oxygen Flow Rate 2 3 05/08/23 02:30 05/08/23 02:34 05/08/23 02:34 Pulse Rate 86 93 H Respiratory Rate 17 19 Blood Pressure 147/76 H Pulse Oximetry 92 94 Oxygen Delivery Method Nasal Cannula Nasal Cannula Oxygen Flow Rate 3 3 05/08/23 03:00 05/08/23 03:30 Pulse Rate 95 H 87 Respiratory Rate 21 19 Blood Pressure Pulse Oximetry 92 Oxygen Delivery Method Nasal Cannula Oxygen Flow Rate 3 MDM - URI/Sore Throat Lab Data 05/07/23 19:00 05/07/23 19:00 Labs: Lab Results 05/07/23 05/07/23 Range/Units 19:00 21:30 WBC 10.9 (4.5-11.0) X10^3/uL RBC 4.86 (4.0-5.2) X10^6/uL Hgb 9.7 L (12.0-16.0) g/dL Hct 31.4 L (36-46) % MCV 64.7 L (80-100) fL MCH 20.0 L (26-34) PG MCHC 30.9 (30-36) % RDW 20.7 H (11.6-14.8) % Plt Count 285 (150-400) X10^3/uL Neut % (Auto) Not Reportable Lymph % (Auto) Not Reportable Anderson % (Auto) Not Reportable Eos % (Auto) Not Reportable Baso % (Auto) Not Reportable Lymph # (Auto) Not Reportable Anderson # (Auto) Not Reportable Baso # (Auto) Not Reportable Total Counted 100 Seg Neutrophils % 78.0 H (38-70) % Band Neutrophils % 2.0 L (3-7) % Lymphocytes % (Manual) 16.0 L (25-45) % Monocytes % (Manual) 3.0 (2-11) % Eosinophils % (Manual) 1.0 L (2-4) % Neutrophils # (Manual) 8720 H (0699-5751) /uL RBC Morphology See below Polychromasia 1+ H Anisocytosis 2+ H Microcytosis 2+ H PT 14.3 H (9.4-12.5) SECONDS INR 1.2 (0.9-1.3) Sodium 136 L (137-145) mmol/L Potassium 4.5 (3.4-5.1) mmol/L Chloride 100 (98-107) mmol/L Carbon Dioxide 27 (22-32) mmol/L BUN 11 (7-17) mg/dL Creatinine 0.47 L (0.52-1.04) mg/dL Estimated GFR > 60 (>60) mL/min BUN/Creatinine Ratio 23.4 H (6-22) Glucose 115 H (70-100) mg/dL Lactate 1.2 (0.7-2.1) mmol/L Calcium 9.8 (8.4-10.2) mg/dL Total Bilirubin 1.0 (0.2-1.3) mg/dL AST 28 (14-36) IU/L ALT 18 (<35) IU/L Alkaline Phosphatase 61 (38-126) U/L Troponin I < 0.012 (0.01-0.034) ng/mL NT-Pro-B Natriuret Pep 41 (<125) pg/mL Total Protein 8.0 (6.3-8.2) g/dL Albumin 4.3 (3.5-5.0) g/dL Globulin 3.7 (1.7-4.1) g/dL Albumin/Globulin Ratio 1.2 (1.0-2.8) SARS-CoV-2 (PCR) Negative (Negative) Influenza A (RT-PCR) Flu a negative (NEGATIVE) Influenza B (RT-PCR) Flu b negative (NEGATIVE) RSV (PCR) Negative (Negative) Imaging Data Chest x-ray: Radiologist's Impression: PROCEDURE: XR CHEST 1V INDICATIONS: Shortness of breath TECHNIQUE: One view of the chest was acquired. COMPARISON: [facility], CR, XR CHEST FOR PICC 1V, 12/16/2019, 15:38. [facility], CR, XR CHEST FOR PICC 1V, 11/19/2019, 2:20. FINDINGS: Surgical changes and devices: None. Lungs and pleura: Lungs are clear. No pleural effusions or pneumothorax. Mediastinum: Mediastinal contours appear normal. Heart size is normal. Bones and chest wall: No suspicious bony lesions. Overlying soft tissues appear unremarkable. IMPRESSION: No acute cardiopulmonary abnormality is seen. Dictated by: Amilcar Chapman M.D. on 05/07/2023 at 19:13 ECG Data Interpretation: Normal sinus rhythm rate 89 VT interval 170 QRS 86 QTC [address] changes T-wave inversion noted in lead 3 only similar to previous EKGs in 2019 MDM Narrative Medical decision making narrative: Patient 47-year-old female history of morbid obesity asthma presenting today with increasing cough and shortness breath. She is noted to be quite tight on exam was difficulty breathing. She did improve with nebulizer treatments and steroids. However oxygen level remains low 89-91% which is lower than her normal. She ambulated got very short of breath could not make it to the door not quite hypoxic but not able to get around Blood work reviewed: No leukocytosis anemia stable hemoglobin 9.7 hematocrit 31.4, no electrolyte abnormality or JORDEN troponin negative BNP 41, respiratory panel negative Patient presents today with upper respiratory like symptoms she has a history of asthma she is mildly hypoxic 89-91% both at rest and with exertion. She received multiple albuterol treatments including 10 mg albuterol treatment and steroids. Patient has a history of asthma she has both obstructive and restrictive lung disease according to family. She reports that her normal oxygenation level is 96%. She is morbidly obese which may be contributing to her shortness of breath. She did improve with treatments no obvious pneumonia no fever or leukocytosis. She does have some mild productive sputum. Very low suspicion for pulmonary embolism due to asthma history and improvement with albuterol. EKG does not show any changes and she has a negative troponin low suspicion for coronary artery disease. BNP is negative no history of congestive heart failure. Dr. Cali, updated on symtpoms and test results. Discharge Plan Departure Patient Disposition: Admitted as Observation Clinical Impression: Asthma exacerbation Admit Date/Time: 05/08/23 03:31 Admit Provider: Tawanda Akers
[2023-05-07] MEDS: methylPREDNISolone 125 MG/2 ML VIAL IV (23:08)
[2023-05-07] MEDS: ALBUTEROL 2.5 MG/3 ML NEB (ADULT) 10 MG INH (23:50)
[2023-05-08] VITALS (21 sets, daily range): BP systolic 107–173; BP diastolic 40–79; PULSE 72–102; RESP 13–24; TEMP 35.7–36.9; O2SAT 91–96; BMI 68.7
--- NOTE | 2023-05-08 01:13 | PC.NURSE ---
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 o2Sats fluctuated between 91-93 when resting after ambulating, O2 SATs decreased to 88-89 with ambulation. MD and RN notified.
--- NOTE | 2023-05-08 03:59 | P.HP_ITS ---
History of Present Illness History of Present Illness Date Patient Seen: 05/08/23 Chief complaint: TROUBLE BREATHING/SORE THROAT/COUGH Narrative: 47 y/o with PMH of asthma, since 10 years ago, on singulair, inhaled steroid and albuterol, presented to ED with severe exacerbation, hypoxemic, and failed to improve sufficiently even after multiple bronchodilator nebs and iv steroid. [facility] Medical History Diarrhea Reflux esophagitis Osteoarthritis of knees, bilateral Knee pain, bilateral Lateral meniscus tear Medial meniscus tear Low back pain Asthma Restless legs RBC microcytosis Fibromyalgia Inflamed acrochordon Strain of right biceps muscle Tympanic membrane perforation, nontraumatic UTI (urinary tract infection) Adnexal mass Restrictive lung disease Moderate persistent asthma Wound infection Concentric left ventricular hypertrophy (~05/2017) Kidney stones Wound of right lower extremity Lymphedema Ovarian cyst (03/28/15) Pneumonia (2008) Hypertension Migraines Sleep apnea Hypertriglyceridemia Surgical History History of esophagogastroduodenoscopy (EGD) (~04/2015) History of History of hernia repair History of laparoscopic appendectomy (03/28/15) History of ovarian cystectomy History of placement of ear tubes History of tonsillectomy Family History Father No problems noted. Mother Atrial fibrillation Grandfather No problems noted. Grandmother No problems noted. Grandfather No problems noted. Grandmother No problems noted. Sister No problems noted. Son Dyskeratosis congenita Social History household members: family Smoking Status: Former smoker Tobacco: How many years used: 17 second hand exposure: No alcohol intake: former Meds Home Medications and Allergies Home Medications Medication Instructions Recorded Confirmed Type QUAD CANE #1 ea 05/08/18 05/08/23 Rx GRAB BARS FOR SHOWER #3 ea 04/21/19 05/08/23 Rx multivitamin 1 tab PO DAILY 08/21/19 05/08/23 History Disabled Parking Permit #1 ea 05/24/22 05/08/23 Rx albuterol sulfate 90 mcg/actuation 2 puff inhalation Q4-6H PRN 02/26/23 05/08/23 Rx aerosol inhaler (Ventolin HFA) Shortness Of Breath #18 grams loratadine 10 mg capsule 10 mg PO DAILY #90 caps 03/14/23 05/08/23 Rx methocarbamol 500 mg tablet 500 mg PO TID PRN mm spasm #60 tabs 03/14/23 05/08/23 Rx montelukast 10 mg tablet 10 mg PO DAILY #90 tabs 03/14/23 05/08/23 Rx nebulizer #1 ea 03/14/23 05/08/23 Rx omeprazole 20 mg capsule,delayed 20 mg PO DAILY #90 caps 03/14/23 05/08/23 Rx release ondansetron HCl 8 mg tablet 8 mg PO Q12H PRN nausea and 03/14/23 05/08/23 Rx vomiting #20 tabs propranolol 20 mg tablet 20 mg PO BID #60 tabs 03/14/23 05/08/23 Rx ipratropium 0.5 mg-albuterol 3 mg 3 ml inhalation Q6HP PRN wheezing/ 03/20/23 05/08/23 Rx (2.5 mg base)/3 mL nebulization shortness of breath #90 mL soln prochlorperazine maleate 10 mg 10 mg PO TID PRN nausea and 04/05/23 05/08/23 Rx tablet (Compazine) vomiting #30 tabs hydrocodone 5 mg-acetaminophen 325 1 tab PO BID PRN pain #60 tabs 04/19/23 05/08/23 Rx mg tablet naproxen 500 mg tablet 500 mg PO BID PRN Pain (Scale 05/08/23 05/08/23 History Score 4-6) [id number]-[id number]-[id number] 3.5 4 drp EAR-RIGHT BID PRN Pain 05/08/23 05/08/23 History mg-10,000 unit/mL-1 % ear (Scale Score 4-6) drops,susp nystatin 100,000 unit/gram topical 1 applictn topical TID PRN Rash 05/08/23 05/08/23 History powder Allergies Allergy/AdvReac Type Severity Reaction Status Date / Time shellfish derived Allergy Intermediate Rash Verified 05/03/23 10:52 latex Allergy Rash Verified 05/03/23 10:52 oxycodone [OXYCODONE] AdvReac Intermediate Irritabilit Verified 05/03/23 10:52 y Review of Systems Constitutional Comments: w/o fever or chills Cardiovascular Comments: w/o palpitations or chest pain Respiratory Comments: severe shortness of breath, wheezing Musculoskeletal Comments: chronic muscle aches impaired mobility, walks with a quadricane Exam Vital Signs (past 8 hours): - 05/07/23 21:42 05/07/23 21:43 05/07/23 21:43 Pulse Rate 82 83 Respiratory Rate 17 19 Blood Pressure 137/86 Pulse Oximetry 93 92 Oxygen Delivery Method Room Air Room Air Oxygen Flow Rate 05/07/23 21:50 05/07/23 22:00 05/07/23 22:00 Pulse Rate 78 80 Respiratory Rate 18 13 Blood Pressure 147/65 H Pulse Oximetry 93 92 Oxygen Delivery Method Room Air Room Air Oxygen Flow Rate 05/07/23 22:30 05/07/23 22:30 05/07/23 23:00 Pulse Rate 79 92 H Respiratory Rate 17 22 Blood Pressure 155/67 H Pulse Oximetry 94 Oxygen Delivery Method Room Air Oxygen Flow Rate 05/07/23 23:01 05/07/23 23:01 05/07/23 23:30 Pulse Rate 89 81 Respiratory Rate 17 17 Blood Pressure 162/61 H Pulse Oximetry 95 94 Oxygen Delivery Method Room Air Oxygen Flow Rate 05/07/23 23:31 05/07/23 23:31 05/07/23 23:39 Pulse Rate 90 Respiratory Rate 16 Blood Pressure 169/68 H 154/68 H Pulse Oximetry 94 Oxygen Delivery Method Room Air Oxygen Flow Rate 05/07/23 23:39 05/08/23 00:00 05/08/23 00:01 Pulse Rate 83 82 Respiratory Rate 16 Blood Pressure 173/74 H Pulse Oximetry 93 91 Oxygen Delivery Method Room Air Nasal Cannula Oxygen Flow Rate 2 05/08/23 00:01 05/08/23 00:30 05/08/23 00:31 Pulse Rate 83 92 H 94 H Respiratory Rate 19 18 19 Blood Pressure Pulse Oximetry 92 92 Oxygen Delivery Method Nasal Cannula Nasal Cannula Oxygen Flow Rate 2 2 05/08/23 00:31 05/08/23 01:00 05/08/23 01:22 Pulse Rate 102 H 102 H Respiratory Rate Blood Pressure 172/79 H Pulse Oximetry Oxygen Delivery Method Oxygen Flow Rate 05/08/23 01:22 05/08/23 01:30 05/08/23 01:30 Pulse Rate 101 H Respiratory Rate 13 Blood Pressure 141/64 H 146/65 H Pulse Oximetry 92 Oxygen Delivery Method Nasal Cannula Oxygen Flow Rate 2 05/08/23 02:00 05/08/23 02:00 05/08/23 02:03 Pulse Rate 100 H Respiratory Rate 23 Blood Pressure 149/66 H Pulse Oximetry 91 94 Oxygen Delivery Method Nasal Cannula Nasal Cannula Oxygen Flow Rate 2 3 05/08/23 02:30 05/08/23 02:34 05/08/23 02:34 Pulse Rate 86 93 H Respiratory Rate 17 19 Blood Pressure 147/76 H Pulse Oximetry 92 94 Oxygen Delivery Method Nasal Cannula Nasal Cannula Oxygen Flow Rate 3 3 05/08/23 03:00 05/08/23 03:30 Pulse Rate 95 H 87 Respiratory Rate 21 19 Blood Pressure Pulse Oximetry 92 Oxygen Delivery Method Nasal Cannula Oxygen Flow Rate 3 Oxygen Delivery Method Nasal Cannula Oxygen Flow Rate 3 Const Other: in no distress obese HENUT Other: oral crowding Eyes Other: eomi Neck Other: thick, short Resp Other: tachypneic, wheezy Cardio Other: RRR Extrem Other: b/l lymphedema Psych Other: appropriate mood and affect, lucid Objective Labs 05/07/23 19:00 05/07/23 19:00 Labs: Laboratory Results - last 24 hr 05/07/23 05/07/23 19:00 21:30 WBC 10.9 RBC 4.86 Hgb 9.7 L Hct 31.4 L MCV 64.7 L MCH 20.0 L MCHC 30.9 RDW 20.7 H Plt Count 285 Neut % (Auto) Not Reportable Lymph % (Auto) Not Reportable Harper % (Auto) Not Reportable Eos % (Auto) Not Reportable Baso % (Auto) Not Reportable Lymph # (Auto) Not Reportable Harper # (Auto) Not Reportable Baso # (Auto) Not Reportable Total Counted 100 Seg Neutrophils % 78.0 H Band Neutrophils % 2.0 L Lymphocytes % (Manual) 16.0 L Monocytes % (Manual) 3.0 Eosinophils % (Manual) 1.0 L Neutrophils # (Manual) 8720 H RBC Morphology See below Polychromasia 1+ H Anisocytosis 2+ H Microcytosis 2+ H PT 14.3 H INR 1.2 Sodium 136 L Potassium 4.5 Chloride 100 Carbon Dioxide 27 BUN 11 Creatinine 0.47 L Estimated GFR > 60 BUN/Creatinine Ratio 23.4 H Glucose 115 H Lactate 1.2 Calcium 9.8 Total Bilirubin 1.0 AST 28 ALT 18 Alkaline Phosphatase 61 Troponin I < 0.012 NT-Pro-B Natriuret Pep 41 Total Protein 8.0 Albumin 4.3 Globulin 3.7 Albumin/Globulin Ratio 1.2 SARS-CoV-2 (PCR) Negative Influenza A (RT-PCR) Flu a negative Influenza B (RT-PCR) Flu b negative RSV (PCR) Negative Assessment & Plan Assessment and plan (1) Asthma exacerbation: Status: Acute Plan: Solumedrol, DuoNeb, albuterol (2) Acute hypoxic respiratory failure: Status: Acute Plan: O2, wean when possible (3) Morbid obesity: Status: Acute Plan: denies LUCAS Obesity Hypoventilation in DD (4) Reflux esophagitis: Qualifiers: Esophagitis bleeding: without hemorrhage Qualified Code(s): K21.00 - Gastro-esophageal reflux disease with esophagitis, without bleeding Status: Acute Plan: PPI (5) Fibromyalgia: Status: Acute Plan: Neurontin (6) Hypertension: Qualifiers: Hypertension type: primary hypertension Qualified Code(s): I10 - Essential (primary) hypertension Status: Chronic Plan: Propranolol
[2023-05-08] MEDS: HYDROCODONE/ACET 5/325 TABLET 1 TAB PO ×2 (05:36→16:30)
--- NOTE | 2023-05-08 07:44 | PM.HP.1 ---
History of Present Illness History of Present Illness Date Patient Seen: 05/08/23 Chief complaint: TROUBLE BREATHING/SORE THROAT/COUGH Narrative: From overnight provider: 47 y/o with PMH of asthma, since 10 years ago, on singulair, inhaled steroid and albuterol, presented to ED with severe exacerbation, hypoxemic, and failed to improve sufficiently even after multiple bronchodilator nebs and iv steroid. Patient tachy and on 3L O2. CTA ordered to rule out PE. Returned showing R-sided subsegmental PE's and R middle and upper lobe bronchopneumonia. Spoke with patient about findings and she reports she was previously on warfarin 5 years ago for PE's but took herself off because it became too much of a hassle to get INR checks. Said her mother had PE's before she . Never had testing for thrombophilias. [facility] Medical History Diarrhea Reflux esophagitis Osteoarthritis of knees, bilateral Knee pain, bilateral Lateral meniscus tear Medial meniscus tear Low back pain Asthma Restless legs RBC microcytosis Fibromyalgia Inflamed acrochordon Strain of right biceps muscle Tympanic membrane perforation, nontraumatic UTI (urinary tract infection) Adnexal mass Restrictive lung disease Moderate persistent asthma Wound infection Concentric left ventricular hypertrophy (~05/2017) Kidney stones Wound of right lower extremity Lymphedema Ovarian cyst (03/28/15) Pneumonia (2008) Hypertension Migraines Sleep apnea Hypertriglyceridemia Surgical History History of esophagogastroduodenoscopy (EGD) (~04/2015) History of History of hernia repair History of laparoscopic appendectomy (03/28/15) History of ovarian cystectomy History of placement of ear tubes History of tonsillectomy Family History Father No problems noted. Mother Atrial fibrillation Grandfather No problems noted. Grandmother No problems noted. Grandfather No problems noted. Grandmother No problems noted. Sister No problems noted. Son Dyskeratosis congenita Social History household members: family Smoking Status: Former smoker Tobacco: How many years used: 17 second hand exposure: No alcohol intake: former Meds Home Medications and Allergies Home Medications Medication Instructions Recorded Confirmed Type QUAD CANE #1 ea 05/08/18 05/08/23 Rx GRAB BARS FOR SHOWER #3 ea 04/21/19 05/08/23 Rx multivitamin 1 tab PO DAILY 08/21/19 05/08/23 History Disabled Parking Permit #1 ea 05/24/22 05/08/23 Rx albuterol sulfate 90 mcg/actuation 2 puff inhalation Q4-6H PRN 02/26/23 05/08/23 Rx aerosol inhaler (Ventolin HFA) Shortness Of Breath #18 grams loratadine 10 mg capsule 10 mg PO DAILY #90 caps 03/14/23 05/08/23 Rx methocarbamol 500 mg tablet 500 mg PO TID PRN mm spasm #60 tabs 03/14/23 05/08/23 Rx montelukast 10 mg tablet 10 mg PO DAILY #90 tabs 03/14/23 05/08/23 Rx nebulizer #1 ea 03/14/23 05/08/23 Rx omeprazole 20 mg capsule,delayed 20 mg PO DAILY #90 caps 03/14/23 05/08/23 Rx release ondansetron HCl 8 mg tablet 8 mg PO Q12H PRN nausea and 03/14/23 05/08/23 Rx vomiting #20 tabs propranolol 20 mg tablet 20 mg PO BID #60 tabs 03/14/23 05/08/23 Rx ipratropium 0.5 mg-albuterol 3 mg 3 ml inhalation Q6HP PRN wheezing/ 03/20/23 05/08/23 Rx (2.5 mg base)/3 mL nebulization shortness of breath #90 mL soln prochlorperazine maleate 10 mg 10 mg PO TID PRN nausea and 04/05/23 05/08/23 Rx tablet (Compazine) vomiting #30 tabs hydrocodone 5 mg-acetaminophen 325 1 tab PO BID PRN pain #60 tabs 04/19/23 05/08/23 Rx mg tablet naproxen 500 mg tablet 500 mg PO BID PRN Pain (Scale 05/08/23 05/08/23 History Score 4-6) [id number] 3.5 4 drp EAR-RIGHT BID PRN Pain 05/08/23 05/08/23 History mg-10,000 unit/mL-1 % ear (Scale Score 4-6) drops,susp nystatin 100,000 unit/gram topical 1 applictn topical TID PRN Rash 05/08/23 05/08/23 History powder Allergies Allergy/AdvReac Type Severity Reaction Status Date / Time shellfish derived Allergy Intermediate Rash Verified 05/03/23 10:52 latex Allergy Rash Verified 05/03/23 10:52 oxycodone [OXYCODONE] AdvReac Intermediate Irritabilit Verified 05/03/23 10:52 y Review of Systems Constitutional Comments: w/o fever or chills Cardiovascular Comments: w/o palpitations or chest pain Respiratory Comments: severe shortness of breath, wheezing Musculoskeletal Comments: chronic muscle aches impaired mobility, walks with a quadricane Exam Vital Signs (past 8 hours): - 05/08/23 00:00 05/08/23 00:01 05/08/23 00:01 Temperature Pulse Rate 82 83 Respiratory Rate 16 19 Blood Pressure 173/74 H Pulse Oximetry 91 Oxygen Delivery Method Nasal Cannula Oxygen Flow Rate 2 05/08/23 00:30 05/08/23 00:31 05/08/23 00:31 Temperature Pulse Rate 92 H 94 H Respiratory Rate 18 19 Blood Pressure 172/79 H Pulse Oximetry 92 92 Oxygen Delivery Method Nasal Cannula Nasal Cannula Oxygen Flow Rate 2 2 05/08/23 01:00 05/08/23 01:22 05/08/23 01:22 Temperature Pulse Rate 102 H 102 H Respiratory Rate Blood Pressure 141/64 H Pulse Oximetry Oxygen Delivery Method Oxygen Flow Rate 05/08/23 01:30 05/08/23 01:30 05/08/23 02:00 Temperature Pulse Rate 101 H 100 H Respiratory Rate 13 23 Blood Pressure 146/65 H Pulse Oximetry 92 91 Oxygen Delivery Method Nasal Cannula Nasal Cannula Oxygen Flow Rate 2 2 05/08/23 02:00 05/08/23 02:03 05/08/23 02:30 Temperature Pulse Rate 86 Respiratory Rate 17 Blood Pressure 149/66 H Pulse Oximetry 94 92 Oxygen Delivery Method Nasal Cannula Nasal Cannula Oxygen Flow Rate 3 3 05/08/23 02:34 05/08/23 02:34 05/08/23 03:00 Temperature Pulse Rate 93 H 95 H Respiratory Rate 19 21 Blood Pressure 147/76 H Pulse Oximetry 94 Oxygen Delivery Method Nasal Cannula Oxygen Flow Rate 3 05/08/23 03:30 05/08/23 03:50 05/08/23 04:20 Temperature 98.4 F Pulse Rate 87 91 H Respiratory Rate 19 24 Blood Pressure 138/59 L Pulse Oximetry 92 96 Oxygen Delivery Method Nasal Cannula Nasal Cannula Oxygen Flow Rate 3 3 Oxygen Delivery Method Nasal Cannula Oxygen Flow Rate 3 Const Other: in no distress morbidly obese HENFL Other: oral crowding Eyes Other: eomi Neck Other: thick, short Resp Other: tachypneic, wheezy Cardio Other: RRR Extrem Other: b/l lymphedema Psych Other: appropriate mood and affect, lucid Objective Labs 05/07/23 19:00 05/07/23 19:00 Labs: Laboratory Results - last 24 hr 05/07/23 05/07/23 19:00 21:30 WBC 10.9 RBC 4.86 Hgb 9.7 L Hct 31.4 L MCV 64.7 L MCH 20.0 L MCHC 30.9 RDW 20.7 H Plt Count 285 Neut % (Auto) Not Reportable Lymph % (Auto) Not Reportable Drew % (Auto) Not Reportable Eos % (Auto) Not Reportable Baso % (Auto) Not Reportable Lymph # (Auto) Not Reportable Drew # (Auto) Not Reportable Baso # (Auto) Not Reportable Total Counted 100 Seg Neutrophils % 78.0 H Band Neutrophils % 2.0 L Lymphocytes % (Manual) 16.0 L Monocytes % (Manual) 3.0 Eosinophils % (Manual) 1.0 L Neutrophils # (Manual) 8720 H RBC Morphology See below Polychromasia 1+ H Anisocytosis 2+ H Microcytosis 2+ H PT 14.3 H INR 1.2 Sodium 136 L Potassium 4.5 Chloride 100 Carbon Dioxide 27 BUN 11 Creatinine 0.47 L Estimated GFR > 60 BUN/Creatinine Ratio 23.4 H Glucose 115 H Lactate 1.2 Calcium 9.8 Total Bilirubin 1.0 AST 28 ALT 18 Alkaline Phosphatase 61 Troponin I < 0.012 NT-Pro-B Natriuret Pep 41 Total Protein 8.0 Albumin 4.3 Globulin 3.7 Albumin/Globulin Ratio 1.2 SARS-CoV-2 (PCR) Negative Influenza A (RT-PCR) Flu a negative Influenza B (RT-PCR) Flu b negative RSV (PCR) Negative Assessment & Plan Assessment and plan (1) Acute pulmonary embolism: Status: Acute Plan: CTPA showed R subsegmental PE's, no heart strain patient reports h/o PE 5 years ago patient previously on warfarin, which she hates and will never take again start eliquis 10mg BID, pharmacy reviewed and despite BMI of 68 no adjustment needed ordered Factor V Leiden blood test given her mother also had PE's and (2) Bronchopneumonia: Status: Acute Plan: CT chest showed R pneumonia start rocephin and azithro (3) Asthma exacerbation: Status: Acute Plan: Solumedrol, DuoNeb, albuterol (4) Acute hypoxic respiratory failure: Status: Acute Plan: on 2L O2, wean when possible (5) Morbid obesity: Status: Acute Plan: denies LUCAS Obesity Hypoventilation in DD (6) Reflux esophagitis: Qualifiers: Esophagitis bleeding: without hemorrhage Qualified Code(s): K21.00 - Gastro-esophageal reflux disease with esophagitis, without bleeding Status: Acute Plan: PPI (7) Fibromyalgia: Status: Acute Plan: Neurontin (8) Hypertension: Qualifiers: Hypertension type: primary hypertension Qualified Code(s): I10 - Essential (primary) hypertension Status: Chronic Plan: Propranolol
--- NOTE | 2023-05-08 07:48 | DI.CT.S_ITS ---
PROCEDURE: CT ANGIO CHEST PE PROTOCOL INDICATIONS: r/o PE TECHNIQUE: After the administration of intravenous contrast, 2 mm thick sections acquired from the pulmonary apices to the posterior costophrenic angles. 3-dimensional maximum intensity projection (MIP) coronal and sagittal reformats were then acquired through the thorax. For radiation dose reduction, the following was used: automated exposure control, adjustment of mA and/or kV according to patient size. COMPARISON: [facility], CT, CT ANGIO CHEST PE PROTOCOL, 02/06/2019, 13:56. FINDINGS: Image quality: Diagnostic. Pulmonary arteries: A few filling defects within the segmental to subsegmental pulmonary arteries of the right lung. Lower Neck: No enlarged lymph nodes. Thyroid: No thyroid nodules which require sonographic follow up, per consensus guidelines. Axillae: No enlarged lymph nodes. Chest Wall: Left breast nodularity measuring 1.1 centimeter. Right breast nodularity with biopsy marker measuring 1.4 centimeter. Bones: Unremarkable. Lungs and Pleura: No pneumothorax or pleural effusions. Centrilobular nodules in the right upper lobe and right middle lobe. Bronchial thickening. Heart: Heart size is normal. No pericardial effusion. Marked coronary artery calcifications for age. Thoracic Vessels: No aortic aneurysm. Mediastinum and Laina: No enlarged lymph nodes. Esophagus: No wall thickening. No hiatal hernia. Upper Abdomen: Hepatic steatosis. IMPRESSION: Small volume segmental to subsegmental right-sided pulmonary emboli. No evidence of infarct or heart strain. Centrilobular nodules in the right middle lobe and right upper lobe. Findings probably indicate early bronchopneumonia or less likely aspiration. Marked coronary artery calcifications for age. Consider cardiology referral. Bilateral breast nodules. Recommend referral to a diagnostic breast Center. Case discussed with Dr. Lui at 8:59 a.m. On 05/08/2023. Dictated by: Amilcar Chapman M.D. on 05/08/2023 at 8:23 Approved by: Amilcar Chapman M.D. on 05/08/2023 at 8:59
[2023-05-08] MEDS: LORATADINE 10 MG TABLET PO (08:26)
[2023-05-08] MEDS: PROPRANOLOL 10 MG TABLET 20 MG PO (08:26)
[2023-05-08] MEDS: GABAPENTIN 100 MG CAPSULE PO ×2 (08:27→20:11)
[2023-05-08] MEDS: ENOXAPARIN 40 MG/0.4 ML SYRINGE SUBCUT (08:27)
[2023-05-08] MEDS: methylPREDNISolone 125 MG/2 ML VIAL 80 MG IV ×2 (08:27→20:10)
[2023-05-08] MEDS: MONTELUKAST 10 MG TABLET PO (08:27)
[2023-05-08] MEDS: PANTOPRAZOLE DR 20 MG TABLET PO (08:27)
[2023-05-08] MEDS: ALBUTEROL/IPRATROPIUM 3 ML AMPUL INH ×3 (09:00→17:26)
[2023-05-08] MEDS: BUDESONIDE 0.5 MG/2 ML NEB INH (09:00)
[2023-05-08] MEDS: cefTRIAXone 2,000 MG in SODIUM CHLORIDE 0.9% 100 ML 200 MG IV (09:55)
[2023-05-08] MEDS: AZITHROMYCIN 250 MG TABLET 500 MG PO (09:55)
[2023-05-08] MEDS: ENOXAPARIN 100 MG/ML SYRINGE SUBCUT (16:19)
[2023-05-08] MEDS: ENOXAPARIN 60 MG/0.6 ML SYRINGE SUBCUT (16:19)
--- NOTE | 2023-05-08 17:26 | CM.DANOTE ---
DCP Assessment Note Pt is a 47yo F here following shortness of breath, PMH of asthma, found to be developing pneumonia and have PEs. PCP Bandar Rees Payer Medicare and Medicaid. PANAMA HAT SMEARER reviewed EMR. Per provider, likely here a few days. Per RN, no obvious CM needs identified at this time. Per chart review, lives at home with sister Kiana in [place]. PANAMA HAT SMEARER unable to meet with pt due to triaging needs. CM team will continue to follow. Likely home with family support when medically stable. PEGGY Dumas Discharge Planning/Care Management CM Discharge Assessment Start: 05/08/23 17:23 Freq: Status: Active Protocol: Document 05/08/23 17:23 (Rec: 05/08/23 17:26 [id number]) Discharge Planning Assessment Assigned Forensic Economist PEGGY Mercado DPOA/Assigned Designee Name [place] (dtr) Contact Information [phone] Advance Directives? No Advance Directives on File No History Provided By Medical Record Prior Living Arrangements Apartment/Condo Household Members family Comment per record, uses a cane at baseline Discharge Plan Home Referrals Initiated None needed Whiteboard Updated in Patient Room with No name and ext. # of Forensic Economist Review Status In Process Next Review Type Continued Stay Review
[2023-05-08] MEDS: ACETAMINOPHEN 325 MG TABLET 650 MG PO (20:11)
[2023-05-08] MEDS: APIXABAN 5 MG TABLET 10 MG PO (20:11)
[2023-05-09] VITALS (8 sets, daily range): BP systolic 103–132; BP diastolic 43–58; PULSE 56–84; RESP 16–22; TEMP 36.2–36.7; O2SAT 91–96
[2023-05-09] MEDS: ACETAMINOPHEN 325 MG TABLET 650 MG PO (02:53)
[2023-05-09] MEDS: cefTRIAXone 2,000 MG in SODIUM CHLORIDE 0.9% 100 ML 200 MG IV (08:13)
[2023-05-09] MEDS: methylPREDNISolone 125 MG/2 ML VIAL 80 MG IV ×2 (08:13→19:38)
[2023-05-09] MEDS: APIXABAN 5 MG TABLET 10 MG PO ×2 (08:14→20:27)
[2023-05-09] MEDS: PANTOPRAZOLE DR 20 MG TABLET PO (08:14)
[2023-05-09] MEDS: MONTELUKAST 10 MG TABLET PO (08:14)
[2023-05-09] MEDS: GABAPENTIN 100 MG CAPSULE PO ×2 (08:14→20:27)
[2023-05-09] MEDS: PROPRANOLOL 10 MG TABLET 20 MG PO (08:14)
[2023-05-09] MEDS: LORATADINE 10 MG TABLET PO (08:14)
[2023-05-09] MEDS: AZITHROMYCIN 250 MG TABLET 500 MG PO (08:14)
[2023-05-09] MEDS: ALBUTEROL/IPRATROPIUM 3 ML AMPUL INH ×2 (08:38→19:35)
[2023-05-09] MEDS: BUDESONIDE 0.5 MG/2 ML NEB INH ×2 (08:38→19:35)
[2023-05-09 10:10] LABS: Add Manual Diff / Slide Review NO; Basophils Absolute Auto 100 /uL (0-100); Basophils Percent Auto 0.5 % (0-2); Eosinophils Absolute Auto 0 /uL (0-450); Eosinophils Percent Auto 0.1 % (2-4); Hematocrit 29.5 % (36-46); Hemoglobin 8.9 g/dL (12.0-16.0); Lymphocytes Absolute Auto 1600 /uL (1100-4500); Lymphocytes Percent Auto 9.3 % (25-40); Mean Corpuscular HGB Conc 30.3 % (30-36); Mean Corpuscular Volume 66.2 fL (80-100); Monocytes Absolute Auto 1100 /uL (0-900); Neutrophils Absolute Auto 14700 /uL (1500-7000); Neutrophils Percent Auto 84.1 % (50-75); Platelet Count 456 X10^3/uL (150-400); Red Blood Cell Count 4.45 X10^6/uL (4.0-5.2); Red Cell Distribution Width 20.8 % (11.6-14.8); White Blood Cell Count 17.5 X10^3/uL (4.5-11.0)
[2023-05-09 10:29] LABS: Anisocytosis 2+; Microcytosis 2+
[2023-05-09 10:30] LABS: BUN Creatinine Ratio 32.8 (6-22); Blood Urea Nitrogen 19 mg/dL (7-17); Calcium 9.6 mg/dL (8.4-10.2); Carbon Dioxide 26 mmol/L (22-32); Chloride 101 mmol/L (98-107); Estimated Glomerular Filt Rate > 60 mL/min (>60); Glucose 187 mg/dL (70-100); HEMOLYSIS < 15 (0-50); Potassium 4.6 mmol/L (3.4-5.1); Sodium 137 mmol/L (137-145)
[2023-05-09 10:31] LABS: Platelet Estimate Increased on smear
--- NOTE | 2023-05-09 15:24 | PM.PN.1 ---
Subjective Subjective Interval history: Patient's breathing about the same. Would like something for cough. She is having diffuse pain from her arthritis and requesting more frequent norco which she takes at home. Exam Vital Signs (past 8 hours): - 05/09/23 07:48 05/09/23 08:00 05/09/23 08:40 Temperature 98.0 F Pulse Rate 77 Respiratory Rate 16 Blood Pressure 132/57 L Pulse Oximetry 94 93 Oxygen Delivery Method Nasal Cannula Nasal Cannula Oxygen Flow Rate 2 2 05/09/23 15:20 Temperature 97.6 F Pulse Rate 69 Respiratory Rate 19 Blood Pressure 118/51 L Pulse Oximetry 96 Oxygen Delivery Method Oxygen Flow Rate 2 Oxygen Delivery Method Nasal Cannula Oxygen Flow Rate 2 Const Other: in no distress morbidly obese HENMT Other: oral crowding Eyes Other: eomi Neck Other: thick, short Resp Other: tachypneic, wheezy Cardio Other: RRR Extrem Other: b/l lymphedema Psych Other: appropriate mood and affect, lucid Objective Labs 05/09/23 09:45 05/09/23 09:45 Labs: Laboratory Results - last 24 hr 05/09/23 09:45 WBC 17.5 H D RBC 4.45 Hgb 8.9 L Hct 29.5 L MCV 66.2 L MCH 20.0 L MCHC 30.3 RDW 20.8 H Plt Count 456 H Neut % (Auto) 84.1 H Lymph % (Auto) 9.3 L [place] % (Auto) 6.0 Eos % (Auto) 0.1 L Baso % (Auto) 0.5 Neut # (Auto) 42059 H Lymph # (Auto) 1600 [place] # (Auto) 1100 H Eos # (Auto) 0 Baso # (Auto) 100 Platelet Estimate Increased on smear RBC Morphology See below Anisocytosis 2+ H Microcytosis 2+ H Sodium 137 Potassium 4.6 Chloride 101 Carbon Dioxide 26 BUN 19 H Creatinine 0.58 Estimated GFR > 60 BUN/Creatinine Ratio 32.8 H Glucose 187 H Calcium 9.6 Magnesium 2.0 PFSH Medical History Diarrhea Reflux esophagitis Osteoarthritis of knees, bilateral Knee pain, bilateral Lateral meniscus tear Medial meniscus tear Low back pain Asthma Restless legs RBC microcytosis Fibromyalgia Inflamed acrochordon Strain of right biceps muscle Tympanic membrane perforation, nontraumatic UTI (urinary tract infection) Adnexal mass Restrictive lung disease Moderate persistent asthma Wound infection Concentric left ventricular hypertrophy (~05/2017) Kidney stones Wound of right lower extremity Lymphedema Ovarian cyst (03/28/15) Pneumonia (2009) Hypertension Migraines Sleep apnea Hypertriglyceridemia Surgical History History of esophagogastroduodenoscopy (EGD) (~04/2015) History of History of hernia repair History of laparoscopic appendectomy (03/28/15) History of ovarian cystectomy History of placement of ear tubes History of tonsillectomy Family History Father No problems noted. Mother Atrial fibrillation Grandfather No problems noted. Grandmother No problems noted. Grandfather No problems noted. Grandmother No problems noted. Sister No problems noted. Son Dyskeratosis congenita Social History household members: family Smoking Status: Former smoker Tobacco: How many years used: 17 second hand exposure: No alcohol intake: former Assessment & Plan Assessment and plan (1) Acute pulmonary embolism: Status: Acute Plan: CTPA showed R subsegmental PE's, no heart strain patient reports h/o PE 5 years ago patient previously on warfarin, which she hates and will never take again start eliquis 10mg BID, pharmacy reviewed and despite BMI of 68 no adjustment needed ordered Factor V Leiden blood test given her mother also had PE's will prakash out DOAC's for patient once closer to discharge (2) Bronchopneumonia: Status: Acute Plan: CT chest showed R pneumonia start rocephin and azithro (3) Asthma exacerbation: Status: Acute Plan: Solumedrol, DuoNeb, albuterol (4) Acute hypoxic respiratory failure: Status: Acute Plan: on 2L O2, wean when possible (5) Morbid obesity: Status: Acute Plan: denies LUCAS Obesity Hypoventilation in DD (6) Reflux esophagitis: Qualifiers: Esophagitis bleeding: without hemorrhage Qualified Code(s): K21.00 - Gastro-esophageal reflux disease with esophagitis, without bleeding Status: Acute Plan: PPI (7) Fibromyalgia: Status: Acute Plan: Neurontin norco q4h PRN (8) Hypertension: Qualifiers: Hypertension type: primary hypertension Qualified Code(s): I10 - Essential (primary) hypertension Status: Chronic Plan: Propranolol Plan Dispo: Likely 2 more day to wean O2.
--- NOTE | 2023-05-09 15:33 | CM.DPC ---
DCP Cont. Reviewed EMR and team rounds for status updates. Per Hospitalist, likely 2-more days inpt due to treating pneumonia and PE's, will also try to wean off O2 prior to d/c.
[2023-05-09] MEDS: SODIUM CHLORIDE 0.9% FLUSH 10 ML IV (19:38)
[2023-05-09] MEDS: HYDROCODONE/ACET 5/325 TABLET 1 TAB PO (19:44)
[2023-05-09] MEDS: BENZONATATE 100 MG CAPSULE PO (19:44)
--- NOTE | 2023-05-09 23:55 | PC.NURSE ---
Patient is alert and oriented. Breath sounds coarse throughout with intermittent non-productive cough noted. Stated she also has runny nose and some congestion. At time of assessment she was on oxygen at 2L/min per NC with sat of 95%; on continuous oximetry. Medicated for cough with tessalon. Patient also reported feeling SOB both at rest and with exertion but is able to speak in complete sentences. HRR but has had soft BP; patient informed RN that she does take propranolol scheduled but rather uses it prn for migraines. Denied nausea. BT hypoactive but reported she had BM earlier today. Up to bathroom with cane and SBA; voiding without difficulty and denied dysuria. Is able to move herself in bed. Unable to use calf SCD's as to small for her LE related to chronic lymphedema; foot SCD's are on. Complained of generalized pain due to fibromyalgia and arthritis so was medicated with vicodin earlier; patient stated her pain never falls below 6/10 but around 2330 stated she had no pain. Skin under breasts and in abdominal folds is moist but without redness; smells yeasty. Fall risk score is high and bed alarm is activated.
[2023-05-10] VITALS (9 sets, daily range): BP systolic 108–141; BP diastolic 45–69; PULSE 58–80; RESP 16–19; TEMP 35.9–36.9; O2SAT 93–97
[2023-05-10] MEDS: ALBUTEROL 2.5 MG/3 ML NEB (ADULT) INH (03:26)
[2023-05-10] MEDS: GABAPENTIN 100 MG CAPSULE PO ×2 (08:12→20:51)
[2023-05-10] MEDS: methylPREDNISolone 125 MG/2 ML VIAL 80 MG IV ×2 (08:12→20:53)
[2023-05-10] MEDS: AZITHROMYCIN 250 MG TABLET 500 MG PO (08:12)
[2023-05-10] MEDS: PANTOPRAZOLE DR 20 MG TABLET PO (08:12)
[2023-05-10] MEDS: cefTRIAXone 2,000 MG in SODIUM CHLORIDE 0.9% 100 ML 200 MG IV (08:12)
[2023-05-10] MEDS: MONTELUKAST 10 MG TABLET PO (08:12)
[2023-05-10] MEDS: APIXABAN 5 MG TABLET 10 MG PO ×2 (08:12→20:50)
[2023-05-10] MEDS: LORATADINE 10 MG TABLET PO (08:13)
[2023-05-10] MEDS: BENZONATATE 100 MG CAPSULE PO ×2 (08:13→20:52)
[2023-05-10] MEDS: ALBUTEROL/IPRATROPIUM 3 ML AMPUL INH ×3 (09:30→18:32)
[2023-05-10] MEDS: BUDESONIDE 0.5 MG/2 ML NEB INH ×2 (09:40→18:32)
--- NOTE | 2023-05-10 13:19 | CM.DPC ---
DCP Cont. Reviewed EMR and team rounds for status updates. Pt continues to require 2LO2, plan is to continue to wean off O2 and likely will d/c home tomorrow. Will continue to follow closely for any further evolving d/c needs.
--- NOTE | 2023-05-10 16:15 | P.PN_ITS ---
Subjective Subjective Interval history: Patient nearly weaned off O2. She is very tired today. Priced her eliquis at her pharmacy and she gets it for $0 copay. Exam Vital Signs (past 8 hours): - 05/10/23 08:59 05/10/23 09:40 05/10/23 09:40 Temperature 97.2 F L Pulse Rate 63 58 L 59 L Respiratory Rate 18 18 18 Blood Pressure 108/45 L Pulse Oximetry 94 93 94 Oxygen Delivery Method Room Air Room Air Oxygen Flow Rate 05/10/23 13:25 05/10/23 14:00 Temperature 98 F Pulse Rate 65 67 Respiratory Rate 16 18 Blood Pressure 130/69 Pulse Oximetry 97 94 Oxygen Delivery Method Room Air Oxygen Flow Rate 0 Oxygen Delivery Method Room Air Oxygen Flow Rate 0 Const Other: in no distress morbidly obese HENMT Other: oral crowding Eyes Other: eomi Neck Other: thick, short Resp Other: improving wheezes bilaterally Cardio Other: RRR Extrem Other: b/l lymphedema Psych Other: appropriate mood and affect, lucid Objective Labs 05/09/23 09:45 05/09/23 09:45 PENDING SALE TO [facility] Medical History Diarrhea Reflux esophagitis Osteoarthritis of knees, bilateral Knee pain, bilateral Lateral meniscus tear Medial meniscus tear Low back pain Asthma Restless legs RBC microcytosis Fibromyalgia Inflamed acrochordon Strain of right biceps muscle Tympanic membrane perforation, nontraumatic UTI (urinary tract infection) Adnexal mass Restrictive lung disease Moderate persistent asthma Wound infection Concentric left ventricular hypertrophy (~05/2017) Kidney stones Wound of right lower extremity Lymphedema Ovarian cyst (03/28/15) Pneumonia (2008) Hypertension Migraines Sleep apnea Hypertriglyceridemia Surgical History History of esophagogastroduodenoscopy (EGD) (~04/2015) History of History of hernia repair History of laparoscopic appendectomy (03/28/15) History of ovarian cystectomy History of placement of ear tubes History of tonsillectomy Family History Father No problems noted. Mother Atrial fibrillation Grandfather No problems noted. Grandmother No problems noted. Grandfather No problems noted. Grandmother No problems noted. Sister No problems noted. Son Dyskeratosis congenita Social History household members: family Smoking Status: Former smoker Tobacco: How many years used: 17 second hand exposure: No alcohol intake: former Assessment & Plan Assessment and plan (1) Acute pulmonary embolism: Status: Acute Plan: CTPA showed R subsegmental PE's, no heart strain patient reports h/o PE 5 years ago patient previously on warfarin, which she hates and will never take again start eliquis 10mg BID, pharmacy reviewed and despite BMI of 68 no adjustment needed ordered Factor V Leiden blood test given her mother also had PE's confirmed with patient's pharmacy that eliquis is $0 copay (2) Bronchopneumonia: Status: Acute Plan: CT chest showed R pneumonia start rocephin and azithro x5 and x3 days (3) Asthma exacerbation: Status: Acute Plan: Solumedrol, DuoNeb, albuterol (4) Acute hypoxic respiratory failure: Status: Acute Plan: improving now on 1L while sleeping only (5) Morbid obesity: Status: Acute Plan: denies LUCAS Obesity Hypoventilation in DD (6) Reflux esophagitis: Qualifiers: Esophagitis bleeding: without hemorrhage Qualified Code(s): K21.00 - Gastro-esophageal reflux disease with esophagitis, without bleeding Status: Acute Plan: PPI (7) Fibromyalgia: Status: Acute Plan: Neurontin norco q4h PRN (8) Hypertension: Qualifiers: Hypertension type: primary hypertension Qualified Code(s): I10 - Essential (primary) hypertension Status: Chronic Plan: Propranolol Plan Dispo: Home on 05/11.
[2023-05-10] MEDS: HYDROCODONE/ACET 5/325 TABLET 1 TAB PO (20:52)
[2023-05-11 00:47] VITALS: BP 122/55; PULSE 62; RESP 18; TEMP 35.8; O2SAT 95
[2023-05-11] MEDS: ALBUTEROL 2.5 MG/3 ML NEB (ADULT) INH (03:00)
[2023-05-11 05:19] LABS: Add Manual Diff / Slide Review NO; Basophils Absolute Auto 100 /uL (0-100); Basophils Percent Auto 0.4 % (0-2); Eosinophils Absolute Auto 0 /uL (0-450); Hematocrit 30.9 % (36-46); Hemoglobin 9.4 g/dL (12.0-16.0); Lymphocytes Absolute Auto 1700 /uL (1100-4500); Lymphocytes Percent Auto 12.6 % (25-40); Mean Corpuscular HGB Conc 30.3 % (30-36); Monocytes Absolute Auto 900 /uL (0-900); Monocytes Percent Auto 6.4 % (3-14); Neutrophils Absolute Auto 11000 /uL (1500-7000); Neutrophils Percent Auto 80.6 % (50-75); Platelet Count 369 X10^3/uL (150-400); Red Blood Cell Count 4.68 X10^6/uL (4.0-5.2); Red Cell Distribution Width 20.8 % (11.6-14.8); White Blood Cell Count 13.6 X10^3/uL (4.5-11.0)
[2023-05-11 05:25] LABS: BUN Creatinine Ratio 40.7 (6-22); Blood Urea Nitrogen 22 mg/dL (7-17); Calcium 9.5 mg/dL (8.4-10.2); Carbon Dioxide 27 mmol/L (22-32); Chloride 100 mmol/L (98-107); Estimated Glomerular Filt Rate > 60 mL/min (>60); Glucose 145 mg/dL (70-100); HEMOLYSIS < 15 (0-50); Potassium 4.3 mmol/L (3.4-5.1); Sodium 135 mmol/L (137-145)
[2023-05-11 05:38] LABS: Anisocytosis 2+; Microcytosis 2+
[2023-05-11 05:39] LABS: Polychromasia 1+
[2023-05-11 07:50] VITALS: BP 119/61; PULSE 71; RESP 20; TEMP 36.1; O2SAT 95
[2023-05-11 08:57] VITALS: PULSE 71; RESP 16; O2SAT 96
[2023-05-11] MEDS: BUDESONIDE 0.5 MG/2 ML NEB INH (08:57)
[2023-05-11] MEDS: ALBUTEROL/IPRATROPIUM 3 ML AMPUL INH (08:57)
[2023-05-11] MEDS: methylPREDNISolone 125 MG/2 ML VIAL 80 MG IV (09:22)
[2023-05-11] MEDS: GABAPENTIN 100 MG CAPSULE PO (09:25)
[2023-05-11] MEDS: PANTOPRAZOLE DR 20 MG TABLET PO (09:25)
[2023-05-11] MEDS: APIXABAN 5 MG TABLET 10 MG PO (09:25)
[2023-05-11] MEDS: MONTELUKAST 10 MG TABLET PO (09:25)
[2023-05-11] MEDS: LORATADINE 10 MG TABLET PO (09:25)
[2023-05-11] MEDS: cefTRIAXone 2,000 MG in SODIUM CHLORIDE 0.9% 100 ML 200 MG IV (09:26)
[2023-05-11] MEDS: SODIUM CHLORIDE 0.9% FLUSH 10 ML IV (09:26)
--- NOTE | 2023-05-11 10:21 | CM.DPC ---
DCP Cont. Reviewed EMR and team rounds for status updates. Pt is now off of O2, plan is to d/c home today, her sister will transport her home. No identified d/c needs identified at this time.
--- NOTE | 2023-05-11 11:01 | P.DS_ITS ---
History of Present Illness History of Present Illness Chief complaint: TROUBLE BREATHING/SORE THROAT/COUGH Narrative: From overnight provider: 47 y/o with PMH of asthma, since 10 years ago, on singulair, inhaled steroid and albuterol, presented to ED with severe exacerbation, hypoxemic, and failed to improve sufficiently even after multiple bronchodilator nebs and iv steroid. Patient tachy and on 3L O2. CTA ordered to rule out PE. Returned showing R-sided subsegmental PE's and R middle and upper lobe bronchopneumonia. Spoke with patient about findings and she reports she was previously on warfarin 5 years ago for PE's but took herself off because it became too much of a hassle to get INR checks. Said her mother had PE's before she . Never had testing for thrombophilias. Discharge Providers Provider Date of admission: 05/08/23 03:31 Discharge Date: 05/11/23 Primary care physician: Bandar Rees DO Discharge provider: Floyd Lui DO Summary Hospital Course Discharge Diagnosis: (1) Acute pulmonary embolism, with history of PE's on warfarin Status: Acute Plan: CTPA showed R subsegmental PE's, no heart strain patient reports h/o PE 5 years ago patient previously on warfarin, which she hates and will never take again start eliquis 10mg BID, pharmacy reviewed and despite BMI of 68 no adjustment needed ordered Factor V Leiden blood test given her mother also had PE's confirmed with patient's pharmacy that eliquis is $0 copay (2) Bronchopneumonia: Status: Acute Plan: CT chest showed R pneumonia start rocephin and azithro x5 and x3 days discharged on augmentin (3) Asthma exacerbation: Status: Acute Plan: Solumedrol, DuoNeb, albuterol discharged on po prednisone (4) Acute hypoxic respiratory failure: Status: Acute Plan: weaned from 3L to room air (5) Morbid obesity: Status: Acute Plan: denies LUCAS Obesity Hypoventilation in DD (6) Reflux esophagitis: Qualifiers: Esophagitis bleeding: without hemorrhage Qualified Code(s): K21.00 - Gastro-esophageal reflux disease with esophagitis, without bleeding Status: Acute Plan: PPI (7) Fibromyalgia: Status: Acute Plan: Neurontin norco q4h PRN (8) Hypertension: Qualifiers: Hypertension type: primary hypertension Qualified Code(s): I10 - Essential (primary) hypertension Status: Chronic Plan: Propranolol Hospital Course: Admitted for acute dyspnea especially with exertion but also at rest. Thought to be in asthma exacerbation due to diffuse wheezes so given IV steroids. CTA chest done due to tachycardia and high risk given obesity and hypoxia which was positive for R subsegmental PE's. Started on eliquis which we verified will cost the patient nothing. CT also showed bilateral bronchopneumonia so given IV abx. She improved over 3 days and was weaned from 3L to room air. Factor V leiden test done and pending. Discharged home to f/up with PCP for ongoing eliquis prescriptions. Given 3 more days of po prednisone and augmentin. Exam Vital Signs (past 8 hours): - 05/11/23 07:50 05/11/23 08:57 Temperature 96.9 F L Pulse Rate 71 71 Respiratory Rate 20 16 Blood Pressure 119/61 Pulse Oximetry 95 96 Oxygen Delivery Method Room Air Oxygen Flow Rate 0 Oxygen Delivery Method Room Air Oxygen Flow Rate 0 Const Other: in no distress morbidly obese HENMT Other: oral crowding Eyes Other: eomi Neck Other: thick, short Resp Other: improving wheezes bilaterally Cardio Other: RRR Extrem Other: b/l lymphedema Psych Other: appropriate mood and affect, lucid Objective Labs 05/11/23 04:52 05/11/23 04:52 Labs: Laboratory Results - last 24 hr 05/11/23 04:52 WBC 13.6 H RBC 4.68 Hgb 9.4 L Hct 30.9 L MCV 66.0 L MCH 20.0 L MCHC 30.3 RDW 20.8 H Plt Count 369 Neut % (Auto) 80.6 H Lymph % (Auto) 12.6 L [place]mer[place]da % (Auto) 6.4 Eos % (Auto) 0.0 L Baso % (Auto) 0.4 Neut # (Auto) 92132 H Lymph # (Auto) 1700 [place]mer[place]da # (Auto) 900 Eos # (Auto) 0 Baso # (Auto) 100 RBC Morphology See below Polychromasia 1+ H Anisocytosis 2+ H Microcytosis 2+ H Sodium 135 L Potassium 4.3 Chloride 100 Carbon Dioxide 27 BUN 22 H Creatinine 0.54 Estimated GFR > 60 BUN/Creatinine Ratio 40.7 H Glucose 145 H Calcium 9.5 PFSH Medical History Diarrhea Reflux esophagitis Osteoarthritis of knees, bilateral Knee pain, bilateral Lateral meniscus tear Medial meniscus tear Low back pain Asthma Restless legs RBC microcytosis Fibromyalgia Inflamed acrochordon Strain of right biceps muscle Tympanic membrane perforation, nontraumatic UTI (urinary tract infection) Adnexal mass Restrictive lung disease Moderate persistent asthma Wound infection Concentric left ventricular hypertrophy (~05/2017) Kidney stones Wound of right lower extremity Lymphedema Ovarian cyst (03/28/15) Pneumonia (2008) Hypertension Migraines Sleep apnea Hypertriglyceridemia Surgical History History of esophagogastroduodenoscopy (EGD) (~04/2015) History of History of hernia repair History of laparoscopic appendectomy (03/28/15) History of ovarian cystectomy History of placement of ear tubes History of tonsillectomy Family History Father No problems noted. Mother Atrial fibrillation Grandfather No problems noted. Grandmother No problems noted. Grandfather No problems noted. Grandmother No problems noted. Sister No problems noted. Son Dyskeratosis congenita Social History household members: family Smoking Status: Former smoker Tobacco: How many years used: 17 second hand exposure: No alcohol intake: former Discharge Plan Discharge Plan Patient Disposition: Home Provider Discharge Comment: You were found to have new PE's, asthma exacerbation and pneumonia. Your oxygen requirements improved with steroids, antibiotics and eliquis. You will now be on eliquis indefinitely. Please finish another 2 days of steroids and antibiotics at home. Dr. Lui Discharge orders & Medications Prescriptions: New Eliquis 5 mg tablet See Rx Instructions .ROUTE .COMPLEX Qty: 60 0RF Rx Instructions: take 2 tabs twice daily for 4 days then 1 tab twice daily amoxicillin-pot clavulanate 875-125 mg tablet 1 tab PO BID 2 Days Qty: 4 0RF Rx Instructions: start on 05/12 prednisone 20 mg tablet 40 mg PO DAILY 2 Days Qty: 4 0RF Rx Instructions: start on 05/12 Continued (DME) QUAD CANE Qty: 1 0RF Dose Instruction: As directed Rx Instructions: Use to assist with walking (DME) Disabled Parking Permit See Rx Instructions .Route .MEDSUPPLY Qty: 1 0RF Rx Instructions: I find this patient to be medically disabled and qualified for disabled parking as indicated, and signed, on the accompanying application albuterol sulfate [Ventolin HFA] 90 mcg/actuation HFA aerosol inhaler 2 puff INHALATION Q4-6H PRN (Reason: Shortness Of Breath) Qty: 18 3RF ipratropium-albuterol 0.5 mg-3 mg(2.5 mg base)/3 mL solution for nebulization 3 ml inhalation Q6HP PRN (Reason: wheezing/ shortness of breath) Qty: 90 1RF hydrocodone-acetaminophen 5-325 mg tablet 1 tab PO BID PRN (Reason: pain) Qty: 60 0RF ([facility]) GRAB BARS FOR SHOWER Qty: 3 0RF Rx Instructions: 3 Grab bars needed for shower to prevent falls multivitamin Tablet 1 tab PO DAILY methocarbamol 500 mg tablet 500 mg PO TID PRN (Reason: mm spasm) Qty: 60 3RF Rx Instructions: due for appt with PCP 02/08/23 ([facility]) nebulizer See Rx Instructions .Route .MEDSUPPLY Qty: 1 0RF Rx Instructions: Nebulizer and equipment #1, 0 refills Albuterol 2.5 mg/3 mL 1 vial 2 times daily as needed # 60, 11 refills propranolol 20 mg tablet 20 mg PO BID Qty: 60 5RF Rx Instructions: PT TAKES IT NEEDED montelukast 10 mg tablet 10 mg PO DAILY Qty: 90 1RF loratadine 10 mg capsule 10 mg PO DAILY Qty: 90 1RF omeprazole 20 mg capsule,delayed release(DR/EC) 20 mg PO DAILY Qty: 90 1RF ondansetron HCl 8 mg tablet 8 mg PO Q12H PRN (Reason: nausea and vomiting) Qty: 20 1RF prochlorperazine maleate [Compazine] 10 mg tablet 10 mg PO TID PRN (Reason: nausea and vomiting) Qty: 30 1RF nystatin 100,000 unit/gram powder 1 applictn TOP TID PRN (Reason: Rash) Rx Instructions: Apply up to 3 times daily prn to underarms and in the a.m. to leg creases ccsexiju-qqlrdyfia-UN 3.5-10,000-1 mg/mL-unit/mL-% drops,suspension 4 drp EAR-RIGHT BID PRN (Reason: Pain (Scale Score 4-6)) Discontinued naproxen 500 mg tablet 500 mg PO BID PRN (Reason: Pain (Scale Score 4-6)) Rx Instructions: do not combine with other NSAIDS like ibuprofen or aspirin Follow up/Referrals: Bandar Rees, [Primary Care Provider] - 2 Weeks Visit Report/Discharge Packet Instructions: DI for Asthma -- Adult Stand Alone Forms: Patient Portal/API, Stroke Signs & Symptoms Discharge Data Primary Care Provider: Bandar Rees
--- NOTE | 2023-05-11 13:25 | PC.NURSE ---
Day shift: Discharge instructions gone over with patient. All questions answered, patient stating understanding. Midline IV d/c'ed prior to d/c. All belongings with patient. RN Iwona Singh escorted patient via wheelchair to exit where family will drive her home.
== END 2023-05-11 13:27 | disposition home or self-care (01) | DRG 175 ==
LOC: ED 05-08 03:31 → AC 05-08 06:16
PROVIDERS: Student in an Organized Health Care Education/Training Program; Admitting Provider Internal Medicine; Emergency Provider Emergency Medicine; PCP Family Medicine; Referring Provider Emergency Medicine; Visit Provider Internal Medicine
DX: I26.94 Multiple subsegmental thrombotic pulmonary emboli without acute cor pulmonale (principal); J18.0 Bronchopneumonia, unspecified organism; J96.01 Acute respiratory failure with hypoxia; J45.901 Unspecified asthma with (acute) exacerbation; E66.2 Morbid (severe) obesity with alveolar hypoventilation; Z68.44 Body mass index [BMI] 60.0-69.9, adult; K21.00 Gastro-esophageal reflux disease with esophagitis, without bleeding; M79.7 Fibromyalgia; I10 Essential (primary) hypertension; Z86.711 Personal history of pulmonary embolism; Z71.3 Dietary counseling and surveillance; Z87.891 Personal history of nicotine dependence
CPT/HCPCS: 0241U; 36415; 71045; 71275; 80048; 80053; 81241; 83605; 83735; 83880; 84484; 85007; 85025; 85610; 93005; 93010; 94150; 94640; 94762; 96374; 99284; J0696; J1642; J1650; J2930; J7613; Q9967

== ENCOUNTER → 2023-08-16 11:30 | Outpatient (CLI) | payer MEDICARE, MEDICAID, SELFPAY ==
[2023-05-11 11:17] VITALS: BMI 68.7
== END ==
PROVIDERS: PCP Family Medicine; Visit Provider Urology
DX: N30.00 Acute cystitis without hematuria (principal)
CPT/HCPCS: 87086

== ENCOUNTER 2023-12-01 19:47 | Inpatient (IN) | payer MEDICARE, MEDICAID, SELFPAY ==
[2023-05-11 11:17] VITALS: BMI 68.7
[2023-12-01] VITALS (8 sets, daily range): BP systolic 128–152; BP diastolic 58–70; PULSE 78–89; RESP 18–22; TEMP 36.8–36.9; O2SAT 90–98; BMI 67.3; BMI 64.5
--- NOTE | 2023-12-01 19:56 | DI.RAD.S_ITS ---
PROCEDURE: XR FOOT RT MIN 3V INDICATIONS: pain in right foot TECHNIQUE: 3 views of the foot were acquired. COMPARISON: None. FINDINGS: Bones: No fractures or dislocations. No suspicious bony lesions. Soft tissues: No tibiotalar joint effusion. Achilles tendon appears normal. IMPRESSION: No acute bony abnormality. Approved by: Lalo Flores M.D. on 12/01/2023 at 19:31
--- NOTE | 2023-12-01 20:46 | ED_ITS ---
HPI - URI/Sore Throat General Chief Complaint: Upper Respiratory Symptoms Stated Complaint: rt foot inj/sick/no energy Time Seen by Provider: 12/01/23 20:08 Source: patient Mode of arrival: Wheelchair History of Present Illness HPI Narrative: 48-year-old female with history of morbid obesity, asthma, PE on Eliquis, iron- deficiency anemia, adnexal mass presents by private vehicle from home for 3-4 days of malaise, fatigue, and right foot pain. Patient states that she thinks that she rolled her foot, but isn't sure. Her foot is very painful and she can not stand on it. Patient states that she has no energy to do any of her activities. Has been using her home inhaler at home without relief. Related Data Home Medications Medication Instructions Recorded Confirmed multivitamin 1 tab PO DAILY 08/21/19 11/02/23 mhorqlgf-rdkyqwphi-qvrullkzv 3.5 4 drp EAR-RIGHT BID PRN Pain 05/08/23 11/02/23 mg-10,000 unit/mL-1 % ear (Scale Score 4-6) drops,susp nystatin 100,000 unit/gram topical 1 applictn topical TID PRN Rash 05/08/23 11/02/23 powder Previous Rx's Medication Instructions Recorded QUAD CANE #1 ea 05/08/18 GRAB BARS FOR SHOWER #3 ea 04/21/19 Disabled Parking Permit #1 ea 05/24/22 albuterol sulfate 90 mcg/actuation 2 puff inhalation Q4-6H PRN 02/26/23 aerosol inhaler (Ventolin HFA) Shortness Of Breath #18 grams nebulizer #1 ea 03/14/23 ondansetron HCl 8 mg tablet 8 mg PO Q12H PRN nausea and 03/14/23 vomiting #20 tabs apixaban 5 mg tablet (Eliquis) 5 mg PO BID #180 tabs 05/25/23 propranolol 10 mg tablet 10 mg PO BID #180 tabs 05/25/23 omeprazole 20 mg capsule,delayed 20 mg PO DAILY #90 caps 09/10/23 release prednisone 20 mg tablet 40 mg (2 x 20 mg) PO DAILY #10 tabs 09/12/23 semaglutide 0.25 mg or 0.5 mg (2 0.25 mg (0.368 mL) SUBCUT QWEEK #3 05/15/24 mg/3 mL) subcutaneous pen injector mL (Ozempic) ipratropium 0.5 mg-albuterol 3 mg 3 ml inhalation Q6HP PRN wheezing/ 09/27/23 (2.5 mg base)/3 mL nebulization shortness of breath #90 mL soln methocarbamol 500 mg tablet 500 mg PO TID PRN mm spasm #60 tabs 10/23/23 loratadine 10 mg capsule 10 mg PO DAILY #90 caps 11/12/23 montelukast 10 mg tablet 10 mg PO DAILY #90 tabs 11/12/23 oxycodone-acetaminophen 5 mg-325 2 tab PO TID PRN pain #42 tabs 11/28/23 mg tablet Allergies Allergy/AdvReac Type Severity Reaction Status Date / Time yasmine Allergy Severe Anaphylaxis Verified 11/02/23 13:27 pumpkin Allergy Severe Anaphylaxis Verified 11/02/23 13:27 shellfish derived Allergy Intermediate Rash Verified 11/02/23 13:27 latex Allergy Rash Verified 11/02/23 13:27 oxycodone [OXYCODONE] AdvReac Intermediate Irritabilit Verified 11/02/23 13:27 y Patient History Medical History Acquired iron deficiency anemia due to decreased absorption IBS (irritable bowel syndrome) History of kidney stones Hx of migraine headaches Hx of chronic arthritis Acute cystitis Hepatomegaly Diarrhea Reflux esophagitis Osteoarthritis of knees, bilateral Knee pain, bilateral Lateral meniscus tear Medial meniscus tear Low back pain Asthma Restless legs RBC microcytosis Fibromyalgia Inflamed acrochordon Strain of right biceps muscle Tympanic membrane perforation, nontraumatic UTI (urinary tract infection) Adnexal mass Restrictive lung disease Moderate persistent asthma Wound infection Concentric left ventricular hypertrophy (~05/2017) Kidney stones Wound of right lower extremity Lymphedema Ovarian cyst (03/28/15) Pneumonia (2009) Hypertension Migraines Sleep apnea Hypertriglyceridemia Surgical History History of esophagogastroduodenoscopy (EGD) (~04/2015) History of History of laparoscopic appendectomy (03/28/15) History of ovarian cystectomy History of placement of ear tubes History of tonsillectomy Family History Father Gout Kidney stone Mother Atrial fibrillation Cancer Eczema Urinary tract bacterial infections Kidney stone Grandfather No problems noted. Grandmother No problems noted. Grandfather No problems noted. Grandmother No problems noted. Sister Eczema Son Dyskeratosis congenita Other Hyperlipidemia Hypertension Social History (Updated 08/16/23 @ 11:13 by Monica Saenz RN) marital status: unmarried,single number of children: 2 household members: family Smoking Status: Former smoker Tobacco: How many years used: 17 second hand exposure: No alcohol intake: former caffeine: Yes Smoking Status: Former smoker alcohol intake frequency: other Substance Use Type: does not use Exam Initial Vital Signs Initial Vital Signs: Vital Signs Temperature 98.4 F 12/01/23 19:50 Pulse Rate 89 12/01/23 19:50 Respiratory Rate 22 12/01/23 19:50 Blood Pressure 136/70 12/01/23 19:50 Pulse Oximetry 94 12/01/23 19:50 Oxygen Delivery Method Room Air 12/01/23 19:50 Const: Awake, alert, appears chronically unwell, significantly older than stated age, morbidly obese Cardiac: regular rate, regular rhythm RESP: Diffuse expiratory wheezes bilaterally, unlabored Skin: Warm, Dry, intact, erythema overlying dorsum of R foot Neuro: AO x3, CN II-XII grossly intact, moves all extremities Course Orders Ordered: ED Orders 12/01/23 19:56 XR foot RT min 3V Stat 12/01/23 19:57 Respiratory Panel (Film Array) Stat 12/01/23 20:45 Chest [XR chest 1V] Stat 12/01/23 20:50 CBC Auto Diff [Complete Blood Count AUTO DIFF] Stat CMP [Comprehensive Metabolic Panel] Stat MAG [Magnesium] Stat TSH [Thyroid Stimulating Hormone] Stat Troponin & CK Cardiac Panel Stat Uric Acid Stat Albuterol (Albuterol Hfa Mdi 60 Puff/8 Gm Inhaler) 2 puff INH Q4-6H PRN PRN Reason: Shortness Of Breath Albuterol/Ipratropium (Albuterol/Ipratropium 3 Ml Ampul) 3 ml INH Q6HP PRN PRN Reason: wheezing/ shortness of breath Apixaban (Apixaban 5 Mg Tablet) 5 mg PO BID [facility] Loratadine (Loratadine 10 Mg Tablet) 10 mg PO DAILY [facility] Methocarbamol (Methocarbamol 500 Mg Tablet) 500 mg PO TID PRN PRN Reason: mm spasm Montelukast Sodium (Montelukast 10 Mg Tablet) 10 mg PO DAILY [facility] Non-Formulary Medication (Multivitamin) 1 tab PO DAILY [facility] Non-Formulary Medication (Ondansetron Hcl) 8 mg PO Q12H PRN PRN Reason: nausea and vomiting Non-Formulary Medication (Omeprazole) 20 mg PO DAILY [facility] Nystatin (Nystatin Powder 15gm) 1 applic TOP TID PRN PRN Reason: Rash Oxycodone/Acetaminophen (Oxycodone/Acetaminophen 5/325 Tablet) 2 tab PO TID PRN PRN Reason: pain Propranolol HCl (Propranolol 10 Mg Tablet) 10 mg PO BID [facility] Discontinued Medications Albuterol/Ipratropium (Albuterol/Ipratropium 3 Ml Ampul) 9 ml INH NOW ONE Stop: 12/01/23 20:45 Last Admin: 12/01/23 20:53 Dose: 9 ml Documented By: Ketorolac Tromethamine (Ketorolac 30 Mg/Ml Vial) 15 mg IV NOW ONE Stop: 12/01/23 22:07 Last Admin: 12/01/23 22:18 Dose: 15 mg Documented By: AFIA Methylprednisolone (Methylprednisolone 125 Mg/2 Ml Vial) 125 mg IV NOW ONE Stop: 12/01/23 20:45 Last Admin: 12/01/23 20:54 Dose: 125 mg Documented By: NICK Vital Signs Vital signs: Vital Signs - 8 hr 12/01/23 19:50 12/01/23 20:05 12/01/23 20:30 Temperature 98.4 F Pulse Rate 89 88 78 Respiratory Rate 22 Blood Pressure 136/70 Pulse Oximetry 94 91 91 Oxygen Delivery Method Room Air 12/01/23 21:00 12/01/23 21:30 12/01/23 21:53 Temperature Pulse Rate 78 87 Respiratory Rate Blood Pressure 152/67 H Pulse Oximetry 98 90 L Oxygen Delivery Method 12/01/23 21:53 12/01/23 22:00 Temperature Pulse Rate 86 88 Respiratory Rate Blood Pressure Pulse Oximetry 93 93 Oxygen Delivery Method MDM - URI/Sore Throat Differential Diagnosis Differential diagnosis: Likely upper respiratory infection, croup and otitis media Lab Data 12/01/23 20:50 12/01/23 20:50 Labs: Lab Results 12/01/23 12/01/23 Range/Units 19:57 20:50 WBC 6.3 (4.5-11.0) X10^3/uL RBC 4.93 (4.0-5.2) X10^6/uL Hgb 10.8 L (12.0-16.0) g/dL Hct 34.4 L (36-46) % MCV 69.8 L (80-100) fL MCH 21.9 L (26-34) PG MCHC 31.4 (30-36) % RDW 31.5 H (11.6-14.8) % Plt Count 251 (150-400) X10^3/uL Neut % (Auto) 61.5 (50-75) % Lymph % (Auto) 26.5 (25-40) % [place] % (Auto) 9.6 (3-14) % Eos % (Auto) 1.4 L (2-4) % Baso % (Auto) 1.0 (0-2) % Neut # (Auto) 3900 (0221-4720) /uL Lymph # (Auto) 1700 (7757-2289) /uL [place] # (Auto) 600 (0-900) /uL Eos # (Auto) 100 (0-450) /uL Baso # (Auto) 100 (0-100) /uL RBC Morphology See below Hypochromasia 1+ H Anisocytosis 3+ H Microcytosis 2+ H Sodium 137 (137-145) mmol/L Potassium 3.6 (3.4-5.1) mmol/L Chloride 101 (98-107) mmol/L Carbon Dioxide 28 (22-32) mmol/L BUN 11 (7-17) mg/dL Creatinine 0.60 (0.52-1.04) mg/dL Estimated GFR > 60 (>60) mL/min BUN/Creatinine Ratio 18.3 (6-22) Glucose 147 H (70-100) mg/dL Uric Acid 8.5 H (2.5-6.2) mg/dL Calcium 9.1 (8.4-10.2) mg/dL Magnesium 2.0 (1.6-2.3) mg/dL Total Bilirubin 0.5 (0.2-1.3) mg/dL AST 41 H (14-36) IU/L ALT 31 (<35) IU/L Alkaline Phosphatase 62 (38-126) U/L Total Creatine Kinase 102 (30-135) U/L Troponin I < 0.012 (0.01-0.034) ng/mL Total Protein 7.0 (6.3-8.2) g/dL Albumin 3.8 (3.5-5.0) g/dL Globulin 3.2 (1.7-4.1) g/dL Albumin/Globulin Ratio 1.2 (1.0-2.8) TSH 1.59 (0.47-4.68) uIU/mL Chlamy pneumoniae PCR Not detected (Not Detect) Adenovirus (PCR) Not detected (Not Detect) B.parapertussis DNA PCR Not detected (Not Detecte) Coronavirus OC43 (PCR) Not detected (Not Detect) Coronavirus HKU1 (PCR) Not detected (Not Detect) Coronavirus 229E (PCR) Not detected (Not Detect) SARS-CoV-2 (PCR) Detected H (Not Detecte) Coronavirus NL63 (PCR) Not detected (Not Detect) Human Metapneumovir PCR Not detected (Not Detect) Influenza Type A (PCR) Not detected (Not Detect) Influenza Type B (PCR) Not detected (Not Detect) M. pneumoniae (PCR) Not detected (Not Detect) Parainfluenza 1 (PCR) Not detected (Not Detect) Parainfluenza 2 (PCR) Not detected (Not Detect) Parainfluenza 3 (PCR) Not detected (Not Detect) Parainfluenza 4 (PCR) Not detected (Not Detect) RSV (PCR) Not detected (Not Detect) Entero/Rhino (PCR) Not detected (Not Detect) Imaging Data Chest x-ray: Radiologist's Impression: PROCEDURE: XR CHEST 1V INDICATIONS: URI/COUGH/DYSPNEA TECHNIQUE: One view of the chest was acquired. COMPARISON: [facility], , XR CHEST 1V, 05/07/2023, 19:03. FINDINGS: Surgical changes and devices: None. Lungs and pleura: Lungs are clear. No pleural effusions or pneumothorax. Mediastinum: Cardiomegaly and mild vascular congestion Bones and chest wall: No suspicious bony lesions. Overlying soft tissues appear unremarkable. IMPRESSION: Cardiomegaly and mild vascular congestion accentuated by low lung volumes Approved by: Lalo Flores M.D. on 12/01/2023 at 20:01 MDM Narrative Medical decision making narrative: Chronically unwell appearing patient with above complaints. Noted to have borderline oxygen saturations on room air, extensive wheezing noted on lung exam. Steroids, nebulizers ordered. X-ray imaging of chest or foot shows no acute findings. COVID-19 positive. Foot is warm to touch, uric acid ordered, suspect possible gout. After steroids patient's lung sounds are improved, but there is still wheezing present, and oxygen saturations vary between 89-91% on room air. Patient does not wear oxygen at baseline. We will admit for additional steroids and nebulizers. Discharge Plan Departure Patient Disposition: Home Clinical Impression: Asthma exacerbation, Elevated uric acid in blood, COVID-19
[2023-12-01 20:53] LABS: Adenovirus Not Detected (Not Detect); B. parapertussis Not Detected (Not Detecte); Bordetella pertussis Not Detected (Not Detect); Chlamydophila pneumoniae Not Detected (Not Detect); Coronavirus 229E Not Detected (Not Detect); Coronavirus HKU1 Not Detected (Not Detect); Coronavirus NL 63 Not Detected (Not Detect); Coronavirus OC43 Not Detected (Not Detect); Human Metapneumovirus Not Detected (Not Detect); Human Rhinovirus/Enterovirus Not Detected (Not Detect); Influenza A Not Detected (Not Detect); Influenza B Not Detected (Not Detect); Mycoplasma pneumoniae Not Detected (Not Detect); Parainfluenza Virus 1 Not Detected (Not Detect); Parainfluenza Virus 2 Not Detected (Not Detect); Parainfluenza Virus 3 Not Detected (Not Detect); Parainfluenza Virus 4 Not Detected (Not Detect); Respiratory Syncytial Virus Not Detected (Not Detect); SARS- CoV-2 Detected (Not Detecte)
[2023-12-01] MEDS: ALBUTEROL/IPRATROPIUM 3 ML AMPUL 9 ML INH (20:53)
[2023-12-01] MEDS: methylPREDNISolone 125 MG/2 ML VIAL IV (20:54)
[2023-12-01 21:03] LABS: Add Manual Diff / Slide Review NO; Basophils Absolute Auto 100 /uL (0-100); Eosinophils Absolute Auto 100 /uL (0-450); Eosinophils Percent Auto 1.4 % (2-4); Hematocrit 34.4 % (36-46); Hemoglobin 10.8 g/dL (12.0-16.0); Lymphocytes Absolute Auto 1700 /uL (1100-4500); Lymphocytes Percent Auto 26.5 % (25-40); Mean Corpuscular HGB Conc 31.4 % (30-36); Mean Corpuscular Hemoglobin 21.9 PG (26-34); Mean Corpuscular Volume 69.8 fL (80-100); Monocytes Absolute Auto 600 /uL (0-900); Monocytes Percent Auto 9.6 % (3-14); Neutrophils Absolute Auto 3900 /uL (1500-7000); Neutrophils Percent Auto 61.5 % (50-75); Platelet Count 251 X10^3/uL (150-400); Red Blood Cell Count 4.93 X10^6/uL (4.0-5.2); Red Cell Distribution Width 31.5 % (11.6-14.8); White Blood Cell Count 6.3 X10^3/uL (4.5-11.0)
[2023-12-01 21:13] LABS: Creatine Kinase 102 U/L (30-135)
[2023-12-01 21:15] LABS: Alanine Aminotransferase 31 IU/L (<35); Albumin 3.8 g/dL (3.5-5.0); Albumin Globulin Ratio 1.2 (1.0-2.8); Alkaline Phosphatase 62 U/L (38-126); Aspartate Aminotransferase 41 IU/L (14-36); BUN Creatinine Ratio 18.3 (6-22); Bilirubin Total 0.5 mg/dL (0.2-1.3); Blood Urea Nitrogen 11 mg/dL (7-17); Calcium 9.1 mg/dL (8.4-10.2); Carbon Dioxide 28 mmol/L (22-32); Chloride 101 mmol/L (98-107); Estimated Glomerular Filt Rate > 60 mL/min (>60); Globulin 3.2 g/dL (1.7-4.1); Glucose 147 mg/dL (70-100); HEMOLYSIS < 15 (0-50); Potassium 3.6 mmol/L (3.4-5.1); Sodium 137 mmol/L (137-145)
[2023-12-01 21:26] LABS: Troponin I < 0.012 ng/mL (0.01-0.034)
[2023-12-01 21:31] LABS: Anisocytosis 3+; Hypochromasia 1+; Microcytosis 2+
[2023-12-01 21:45] LABS: Thyroid Stimulating Hormone 1.59 uIU/mL (0.47-4.68)
[2023-12-01 21:48] LABS: Uric Acid 8.5 mg/dL (2.5-6.2)
[2023-12-01] MEDS: KETOROLAC 30 MG/ML VIAL 15 MG IV (22:18)
[2023-12-01 23:42] LABS: Procalcitonin 0.093 ng/mL (<0.5)
[2023-12-02] MEDS: REMDESIVIR 200 MG in SODIUM CHLORIDE 0.9% 250 ML 250 MG IV (00:35)
[2023-12-02] MEDS: OXYCODONE/ACETAMINOPHEN 5/325 TABLET 2 TAB PO ×3 (00:54→18:47)
[2023-12-02] MEDS: methocarbamoL 500 MG TABLET PO ×3 (00:54→18:48)
[2023-12-02] MEDS: MELATONIN 3 MG TABLET 9 MG PO (00:54)
--- NOTE | 2023-12-02 01:54 | PM.HP.1 ---
History of Present Illness History of Present Illness Chief complaint: rt foot inj/sick/no energy Narrative: 48 years old female with history of hypertension, hyperlipidemia, pulmonary emboli on Eliquis, obstructive sleep apnea, fibromyalgia, moderate persistent asthma, osteoarthritis of bilateral knees, GERD, iron deficiency anemia, IBS, restless leg syndrome, presented to the ER with generalized weakness, malaise, body aches, shortness of breath, dry cough, and right foot pain in the last couple of days getting progressively worse. The patient was using her home inhaler without any relief. Denies any fever but substernal chest pain on and off and unable to ambulate due to her pain. Denies any nausea, vomiting, abdominal pain, diarrhea or dysuria. In the ER she was found to be mildly hypoxic with COVID and was decided to be admitted for further management. Laboratory was remarkable for blood sugar of 147, uric acid 8.5, AST 41, troponin 0.0 12, procalcitonin 0.0 93, TSH 159. Chest x-ray shows cardiomegaly with mild vascular congestion, right foot x-ray shows no acute bone abnormalities. She was given albuterol nebulizer, Toradol 15 mg IV, methylprednisolone 125 mg IV. [facility] Medical History Acquired iron deficiency anemia due to decreased absorption IBS (irritable bowel syndrome) History of kidney stones Hx of migraine headaches Hx of chronic arthritis Acute cystitis Hepatomegaly Diarrhea Reflux esophagitis Osteoarthritis of knees, bilateral Knee pain, bilateral Lateral meniscus tear Medial meniscus tear Low back pain Asthma Restless legs RBC microcytosis Fibromyalgia Inflamed acrochordon Strain of right biceps muscle Tympanic membrane perforation, nontraumatic UTI (urinary tract infection) Adnexal mass Restrictive lung disease Moderate persistent asthma Wound infection Concentric left ventricular hypertrophy (~05/2017) Kidney stones Wound of right lower extremity Lymphedema Ovarian cyst (03/28/15) Pneumonia (2009) Hypertension Migraines Sleep apnea Hypertriglyceridemia Surgical History History of esophagogastroduodenoscopy (EGD) (~04/2015) History of History of laparoscopic appendectomy (03/28/15) History of ovarian cystectomy History of placement of ear tubes History of tonsillectomy Family History Father Gout Kidney stone Mother Atrial fibrillation Cancer Eczema Urinary tract bacterial infections Kidney stone Grandfather No problems noted. Grandmother No problems noted. Grandfather No problems noted. Grandmother No problems noted. Sister Eczema Son Dyskeratosis congenita Other Hyperlipidemia Hypertension Social History (Updated 08/16/23 @ 11:13 by Monica Saenz RN) marital status: unmarried,single number of children: 2 household members: family Smoking Status: Former smoker Tobacco: How many years used: 17 second hand exposure: No alcohol intake: former caffeine: Yes Meds Home Medications and Allergies Home Medications Medication Instructions Recorded Confirmed Type QUAD CANE #1 ea 05/08/18 12/02/23 Rx GRAB BARS FOR SHOWER #3 ea 04/21/19 12/02/23 Rx multivitamin 1 tab PO DAILY 08/21/19 12/01/23 History Disabled Parking Permit #1 ea 05/24/22 12/02/23 Rx albuterol sulfate 90 mcg/actuation 2 puff inhalation Q4-6H PRN 02/26/23 12/01/23 Rx aerosol inhaler (Ventolin HFA) Shortness Of Breath #18 grams nebulizer #1 ea 03/14/23 12/02/23 Rx ondansetron HCl 8 mg tablet 8 mg PO Q12H PRN nausea and 03/14/23 11/02/23 Rx vomiting #20 tabs shrvhrjz-noivzotna-lwbaaauge 3.5 4 drp EAR-RIGHT BID PRN Pain 05/08/23 11/02/23 History mg-10,000 unit/mL-1 % ear (Scale Score 4-6) drops,susp nystatin 100,000 unit/gram topical 1 applictn topical TID PRN Rash 05/08/23 11/02/23 History powder apixaban 5 mg tablet (Eliquis) 5 mg PO BID #180 tabs 05/25/23 12/01/23 Rx propranolol 10 mg tablet 10 mg PO BID #180 tabs 05/25/23 11/02/23 Rx omeprazole 20 mg capsule,delayed 20 mg PO DAILY #90 caps 09/10/23 12/01/23 Rx release prednisone 20 mg tablet 40 mg (2 x 20 mg) PO DAILY #10 tabs 09/12/23 12/01/23 Rx semaglutide 0.25 mg or 0.5 mg (2 0.25 mg (0.368 mL) SUBCUT QWEEK #3 09/12/23 11/02/23 Rx mg/3 mL) subcutaneous pen injector mL (Ozempic) ipratropium 0.5 mg-albuterol 3 mg 3 ml inhalation Q6HP PRN wheezing/ 09/27/23 12/01/23 Rx (2.5 mg base)/3 mL nebulization shortness of breath #90 mL soln methocarbamol 500 mg tablet 500 mg PO TID PRN mm spasm #60 tabs 10/23/23 12/01/23 Rx loratadine 10 mg capsule 10 mg PO DAILY #90 caps 11/12/23 12/01/23 Rx montelukast 10 mg tablet 10 mg PO DAILY #90 tabs 11/12/23 12/01/23 Rx oxycodone-acetaminophen 5 mg-325 2 tab PO TID PRN pain #42 tabs 11/28/23 12/01/23 Rx mg tablet Allergies Allergy/AdvReac Type Severity Reaction Status Date / Time yasmine Allergy Severe Anaphylaxis Verified 11/02/23 13:27 pumpkin Allergy Severe Anaphylaxis Verified 11/02/23 13:27 shellfish derived Allergy Intermediate Rash Verified 11/02/23 13:27 latex Allergy Rash Verified 11/02/23 13:27 oxycodone [OXYCODONE] AdvReac Intermediate Irritabilit Verified 11/02/23 13:27 y Review of Systems Review of Systems ROS: Yes All systems reviewed with the patient and are negative except as otherwise documented Constitutional Constitutional: Reports as per HPI and Reports system reviewed and no additional complaints, except as documented Eyes Eyes: Reports as per HPI and Reports system reviewed and no additional complaints, except as documented ENT Ears, Nose, Mouth, and Throat: Yes as per HPI and Yes system reviewed and no additional complaints, except as documented Cardiovascular Cardiovascular: Reports system reviewed and no additional complaints, except as documented Respiratory Respiratory: Reports system reviewed and no additional complaints, except as documented Gastrointestinal Gastrointestinal: Reports system reviewed and no additional complaints, except as documented Genitourinary Genitourinary: Reports system reviewed and no additional complaints, except as documented Musculoskeletal Musculoskeletal: Reports system reviewed and no additional complaints, except as documented, Reports abnormal gait and Reports numbness Neurologic Neurologic: Reports system reviewed and no additional complaints, except as documented, Reports abnormal gait, Reports confusion and Reports numbness Psychiatric Psychiatric: Reports system reviewed and no additional complaints, except as documented and Reports confusion Exam Vital Signs (past 8 hours): - 12/01/23 19:50 12/01/23 20:05 12/01/23 20:30 Temperature 98.4 F Pulse Rate 89 88 78 Respiratory Rate 22 Blood Pressure 136/70 Pulse Oximetry 94 91 91 Oxygen Delivery Method Room Air Oxygen Flow Rate 12/01/23 21:00 12/01/23 21:30 12/01/23 21:53 Temperature Pulse Rate 78 87 Respiratory Rate Blood Pressure 152/67 H Pulse Oximetry 98 90 L Oxygen Delivery Method Oxygen Flow Rate 12/01/23 21:53 12/01/23 22:00 12/01/23 22:44 Temperature 98.2 F Pulse Rate 86 88 88 Respiratory Rate 18 Blood Pressure 128/58 L Pulse Oximetry 93 93 97 Oxygen Delivery Method Oxygen Flow Rate 2 12/01/23 23:41 Temperature Pulse Rate Respiratory Rate Blood Pressure Pulse Oximetry Oxygen Delivery Method Nasal Cannula Oxygen Flow Rate Oxygen Delivery Method Nasal Cannula Oxygen Flow Rate 2 Const General: cooperative, comfortable and well developed Orientation: alert and oriented x3 HENMT Head: normal to inspection, normocephalic and atraumatic Face and sinus: normal facial exam Mouth: oral mucosae normal and moist mucous membranes Throat: posterior oropharynx normal Eyes General: appearance normal, both eyes and all related structures Pupils: PERRL EOM: EOM intact bilaterally Neck Neck: normal visual inspection and full ROM Chest Chest: normal inspection of the chest Resp Effort & Inspection: normal respiratory effort and able to speak in complete sentences Auscultation: clear to auscultation bilaterally Cardio Palpation: normal PMI Rate: regular rate Rhythm: regular rhythm Heart Sounds: S1 normal and S2 normal GI Inspection: normal to inspection Palpation: soft and no hepatosplenomegaly Auscultation: normal bowel sounds Skin General: no rashes or lesions noted Lesions: no lesions Rashes: no rashes Trauma: no lacerations or abrasions Neuro General: patient alert, patient awake, patient oriented x3 and no focal motor deficits Cranial Nerves: CN's II-XI intact bilaterally Cognition: normal cognition Speech: speech normal Gait: normal gait Motor: muscle tone normal throughout Sensory Exam: no sensory deficits noted Extrem General: full ROM and no calf tenderness Psych Appearance: grossly normal Mental Status: mental status grossly normal Speech and Movement: speech and movement normal Objective Labs 12/01/23 20:50 12/01/23 20:50 Labs: Laboratory Results - last 24 hr 12/01/23 12/01/23 19:57 20:50 WBC 6.3 RBC 4.93 Hgb 10.8 L Hct 34.4 L MCV 69.8 L MCH 21.9 L MCHC 31.4 RDW 31.5 H Plt Count 251 Neut % (Auto) 61.5 Lymph % (Auto) 26.5 [place] % (Auto) 9.6 Eos % (Auto) 1.4 L Baso % (Auto) 1.0 Neut # (Auto) 3900 Lymph # (Auto) 1700 [place] # (Auto) 600 Eos # (Auto) 100 Baso # (Auto) 100 RBC Morphology See below Hypochromasia 1+ H Anisocytosis 3+ H Microcytosis 2+ H Sodium 137 Potassium 3.6 Chloride 101 Carbon Dioxide 28 BUN 11 Creatinine 0.60 Estimated GFR > 60 BUN/Creatinine Ratio 18.3 Glucose 147 H Uric Acid 8.5 H Calcium 9.1 Magnesium 2.0 Total Bilirubin 0.5 AST 41 H ALT 31 Alkaline Phosphatase 62 Total Creatine Kinase 102 Troponin I < 0.012 Total Protein 7.0 Albumin 3.8 Globulin 3.2 Albumin/Globulin Ratio 1.2 Procalcitonin 0.093 TSH 1.59 Chlamy pneumoniae PCR Not detected Adenovirus (PCR) Not detected B.parapertussis DNA PCR Not detected Coronavirus OC43 (PCR) Not detected Coronavirus HKU1 (PCR) Not detected Coronavirus 229E (PCR) Not detected SARS-CoV-2 (PCR) Detected H Coronavirus NL63 (PCR) Not detected Human Metapneumovir PCR Not detected Influenza Type A (PCR) Not detected Influenza Type B (PCR) Not detected M. pneumoniae (PCR) Not detected Parainfluenza 1 (PCR) Not detected Parainfluenza 2 (PCR) Not detected Parainfluenza 3 (PCR) Not detected Parainfluenza 4 (PCR) Not detected RSV (PCR) Not detected Entero/Rhino (PCR) Not detected Assessment & Plan Assessment & Plan narrative: Acute respiratory failure with hypoxia secondary to covid-19 infection: Previous COVID infection in 2019. Not vaccinated. -Admit to medical telemetry -Remdesivir per protocol -Hold any antibiotics for now. Procalcitonin is negative. -Dexamethasone 6 mg by mouth daily -Supplemental oxygen as needed -Nebulizer treatment as needed -Air-born and contact isolation -Restart Eliquis for DVT prophylaxis. -supportive management with BiPAP / intubation if condition worsens Right foot pain. X-ray negative for any fracture. Uric acid elevated. Suspects gout. Steroids, pain meds prn and PT evaluation Moderate persistent asthma. Restart Singulair, albuterol and DuoNeb as needed. Hypertension. Restart propranolol. History of bilateral pulmonary emboli diagnosed in July 2023. Continue Eliquis. Super morbidly obese. PT and OT evaluation. Obstructive sleep apnea. Chronic. Stable. CPAP at night per protocol GERD. History of GI bleed. Restart PPI. Fibromyalgia. Restart Neurontin. Time-Based Coding :: [TOTAL MINUTES] spent with patient and on the chart (including review of chart, obtaining history, exam, reviewing outside data, placing orders, documenting exam and treatment plan, and counseling patient) on [DATE]. Quality VTE Deep Vein Thrombosis/Pulmonary Embolism Present on Admission: No MIPS - Admit I confirm the patient?s Advance Care Plan is present, Code status is documented, Surrogate decision maker is in patient?s record [If Yes, STOP here]: Yes MIPS - Meds 'Current medications' to include all prescriptions, [id number] products, herbals, cannabis/cannabidiol products, and vitamin/mineral/dietary (nutritional) supplements. I have utilized all available resources to obtain, update, or review the patient?s current medications. [If Yes, STOP here]: Yes
[2023-12-02 06:28] VITALS: BP 112/45; PULSE 71; RESP 22; TEMP 35.9; O2SAT 100
--- NOTE | 2023-12-02 07:25 | PM.PN.1 ---
Subjective Subjective Interval history: From night doctor: 48 years old female with history of hypertension, hyperlipidemia, pulmonary emboli on Eliquis, obstructive sleep apnea, fibromyalgia, moderate persistent asthma, osteoarthritis of bilateral knees, GERD, iron deficiency anemia, IBS, restless leg syndrome, presented to the ER with generalized weakness, malaise, body aches, shortness of breath, dry cough, and right foot pain in the last couple of days getting progressively worse. The patient was using her home inhaler without any relief. Denies any fever but substernal chest pain on and off and unable to ambulate due to her pain. Denies any nausea, vomiting, abdominal pain, diarrhea or dysuria. In the ER, she was found to be mildly hypoxic with COVID and was decided to be admitted for further management. Laboratory was remarkable for blood sugar of 147, uric acid 8.5, AST 41, troponin 0.0 12, procalcitonin 0.0 93, TSH 159. Chest x-ray shows cardiomegaly with mild vascular congestion, right foot x-ray shows no acute bone abnormalities. She was given albuterol nebulizer, Toradol 15 mg IV, methylprednisolone 125 mg IV. S: She was still short of breath and has a lot of coughing. She was off oxygen. She has been using more inhalers last several days. She denies history of diabetes. Exam Vital Signs (past 8 hours): - 12/01/23 23:41 12/02/23 06:28 Temperature 96.6 F L Pulse Rate 71 Respiratory Rate 22 Blood Pressure 112/45 L Pulse Oximetry 100 Oxygen Delivery Method Nasal Cannula Oxygen Flow Rate 2 Oxygen Delivery Method Nasal Cannula Oxygen Flow Rate 2 Narrative Exam Narrative: NAD, alert and oriented. Fluent speech. Lungs are notable for audible wheezing, and frequent coughing. Heart is regular, no murmur gallop or rub. Abdomen is non-distended. Extremities are free of edema. Objective Imaging Chest x-ray: Radiologist's impression: Cardiomegaly and mild vascular congestion accentuated by low lung volumes Labs 12/01/23 20:50 12/02/23 06:54 Labs: Laboratory Results - last 24 hr 12/01/23 12/01/23 19:57 20:50 WBC 6.3 RBC 4.93 Hgb 10.8 L Hct 34.4 L MCV 69.8 L MCH 21.9 L MCHC 31.4 RDW 31.5 H Plt Count 251 Neut % (Auto) 61.5 Lymph % (Auto) 26.5 [place] % (Auto) 9.6 Eos % (Auto) 1.4 L Baso % (Auto) 1.0 Neut # (Auto) 3900 Lymph # (Auto) 1700 [place] # (Auto) 600 Eos # (Auto) 100 Baso # (Auto) 100 RBC Morphology See below Hypochromasia 1+ H Anisocytosis 3+ H Microcytosis 2+ H Sodium 137 Potassium 3.6 Chloride 101 Carbon Dioxide 28 BUN 11 Creatinine 0.60 Estimated GFR > 60 BUN/Creatinine Ratio 18.3 Glucose 147 H Uric Acid 8.5 H Calcium 9.1 Magnesium 2.0 Total Bilirubin 0.5 AST 41 H ALT 31 Alkaline Phosphatase 62 Total Creatine Kinase 102 Troponin I < 0.012 Total Protein 7.0 Albumin 3.8 Globulin 3.2 Albumin/Globulin Ratio 1.2 Procalcitonin 0.093 TSH 1.59 Chlamy pneumoniae PCR Not detected Adenovirus (PCR) Not detected B.parapertussis DNA PCR Not detected Coronavirus OC43 (PCR) Not detected Coronavirus HKU1 (PCR) Not detected Coronavirus 229E (PCR) Not detected SARS-CoV-2 (PCR) Detected H Coronavirus NL63 (PCR) Not detected Human Metapneumovir PCR Not detected Influenza Type A (PCR) Not detected Influenza Type B (PCR) Not detected M. pneumoniae (PCR) Not detected Parainfluenza 1 (PCR) Not detected Parainfluenza 2 (PCR) Not detected Parainfluenza 3 (PCR) Not detected Parainfluenza 4 (PCR) Not detected RSV (PCR) Not detected Entero/Rhino (PCR) Not detected PFSH Medical History Acquired iron deficiency anemia due to decreased absorption IBS (irritable bowel syndrome) History of kidney stones Hx of migraine headaches Hx of chronic arthritis Acute cystitis Hepatomegaly Diarrhea Reflux esophagitis Osteoarthritis of knees, bilateral Knee pain, bilateral Lateral meniscus tear Medial meniscus tear Low back pain Asthma Restless legs RBC microcytosis Fibromyalgia Inflamed acrochordon Strain of right biceps muscle Tympanic membrane perforation, nontraumatic UTI (urinary tract infection) Adnexal mass Restrictive lung disease Moderate persistent asthma Wound infection Concentric left ventricular hypertrophy (~05/2017) Kidney stones Wound of right lower extremity Lymphedema Ovarian cyst (03/28/15) Pneumonia (2009) Hypertension Migraines Sleep apnea Hypertriglyceridemia Surgical History History of esophagogastroduodenoscopy (EGD) (~04/2015) History of History of laparoscopic appendectomy (03/28/15) History of ovarian cystectomy History of placement of ear tubes History of tonsillectomy Family History Father Gout Kidney stone Mother Atrial fibrillation Cancer Eczema Urinary tract bacterial infections Kidney stone Grandfather No problems noted. Grandmother No problems noted. Grandfather No problems noted. Grandmother No problems noted. Sister Eczema Son Dyskeratosis congenita Other Hyperlipidemia Hypertension Social History marital status: unmarried,single number of children: 2 household members: family Smoking Status: Former smoker Tobacco: How many years used: 17 second hand exposure: No alcohol intake: former caffeine: Yes Assessment & Plan Assessment & Plan narrative: 1. Acute respiratory failure with hypoxia secondary to covid-19 pneumonia, present on admission and active. -Previous COVID infection in 2019. Not vaccinated. -Remdesivir per protocol -Dexamethasone 6 mg by mouth daily -Supplemental oxygen as needed -Restart Eliquis for DVT prophylaxis. 2. Right foot pain, present on admission and active. -X-ray negative for any fracture. Uric acid elevated. Suspects gout. Steroids, pain meds prn and PT evaluation. 3. Moderate persistent asthma. Restart Singulair, albuterol and DuoNeb as needed. 4. Hypertension. Restart propranolol. 5. History of bilateral pulmonary emboli diagnosed in July 2023. Continue Eliquis. 6. Super morbidly obese. PT and OT evaluation. 7. Obstructive sleep apnea. Chronic. Stable. CPAP at night per protocol 8. GERD. History of GI bleed. Restart PPI. 9. Fibromyalgia. Restart Neurontin. PLAN: -continue remdesivir and IV dexamethasone. -monitor breathing, and wean oxygen as able. -continue apixaban -continue other routine medications. CHRISTI: 12/03, home. Time-Based Coding :: 20 min spent with patient and on the chart (including review of chart, obtaining history, exam, reviewing outside data, placing orders, documenting exam and treatment plan, and counseling patient) on 12/01. Quality VTE Deep Vein Thrombosis/Pulmonary Embolism Present on Admission: No
[2023-12-02 07:31] LABS: Alanine Aminotransferase 28 IU/L (<35); Albumin 3.8 g/dL (3.5-5.0); Albumin Globulin Ratio 1.5 (1.0-2.8); Alkaline Phosphatase 55 U/L (38-126); Aspartate Aminotransferase 30 IU/L (14-36); BUN Creatinine Ratio 20.3 (6-22); Bilirubin Total 0.5 mg/dL (0.2-1.3); Blood Urea Nitrogen 14 mg/dL (7-17); Calcium 9.2 mg/dL (8.4-10.2); Carbon Dioxide 28 mmol/L (22-32); Chloride 101 mmol/L (98-107); Estimated Glomerular Filt Rate > 60 mL/min (>60); Globulin 2.6 g/dL (1.7-4.1); Glucose 181 mg/dL (70-100); HEMOLYSIS < 15 (0-50); Magnesium 2.2 mg/dL (1.6-2.3); Sodium 138 mmol/L (137-145); Total Protein 6.4 g/dL (6.3-8.2)
[2023-12-02 08:00] VITALS: BP 106/45; PULSE 76; RESP 19; TEMP 36.7; O2SAT 92
[2023-12-02] MEDS: HYDROMORPHONE 0.5 MG INJ IV ×2 (08:45→11:52)
[2023-12-02] MEDS: BENZONATATE 100 MG CAPSULE PO ×2 (08:46→13:32)
[2023-12-02] MEDS: APIXABAN 5 MG TABLET PO ×2 (08:47→21:37)
[2023-12-02] MEDS: dexAMETHasone 1 MG TABLET 6 MG PO (08:47)
[2023-12-02] MEDS: PANTOPRAZOLE DR 20 MG TABLET PO (08:52)
[2023-12-02] MEDS: MULTIVITAMIN 1 TABLET 1 TAB PO (08:52)
[2023-12-02] MEDS: MONTELUKAST 10 MG TABLET PO (08:52)
[2023-12-02] MEDS: LORATADINE 10 MG TABLET PO (08:52)
--- NOTE | 2023-12-02 09:38 | PT.IIE ---
Surgical History (Last Reviewed 12/02/23 @ 07:25 by Gregor Pinto MD) History of History of esophagogastroduodenoscopy (EGD) (~04/2015) History of laparoscopic appendectomy (03/28/15) History of ovarian cystectomy History of placement of ear tubes History of tonsillectomy Medical History (Last Reviewed 12/02/23 @ 07:25 by Gregor Pinto MD) Acquired iron deficiency anemia due to decreased absorption Acute cystitis Adnexal mass Asthma Concentric left ventricular hypertrophy (~05/2017) Diarrhea Fibromyalgia Hepatomegaly History of kidney stones Hx of chronic arthritis Hx of migraine headaches Hypertension Hypertriglyceridemia IBS (irritable bowel syndrome) Inflamed acrochordon Kidney stones Knee pain, bilateral Lateral meniscus tear Low back pain Lymphedema Medial meniscus tear Migraines Moderate persistent asthma Osteoarthritis of knees, bilateral Ovarian cyst (03/28/15) Pneumonia (2008) RBC microcytosis Reflux esophagitis Restless legs Restrictive lung disease Sleep apnea Strain of right biceps muscle Tympanic membrane perforation, nontraumatic UTI (urinary tract infection) Wound infection Wound of right lower extremity Physical Therapy Inpatient Evaluation/Re-Eval M1 PT/OT-IP Prior Functional Status Start: 12/02/23 08:33 Freq: NEEDED Status: Active Protocol: Document 12/02/23 08:53 MB (Rec: 12/02/23 09:38 MB [id number]) Medical Review Prior Functional Status Medical History Reviewed Yes Diet/Fluid Consistency Regular Communication WNLs Mobility and Gait Mod I with SBQC Activities of Daily Living and IADL's Pt states that her daughter is her caregiver and she comes to assist her with her ADLs. Pt lives with her son and her sister in [facility] in [place], [facility] with 8 steps at a time and pt thinks there is a rail but she doesn't remember , she uses her cane Social History Household Members family Living Arrangements Apartment/[facility] Number of Stairs To Enter/Railing? [facility] Home Environment Standard Height Toilet,Tub/ Shower Home Equipment Grab Bars In Shower Additional Social History Comment Pt usually uses SBQC and she has a walker but does not know if it has 2 or 4 wheels M2 PT-IP Current Condition Start: 12/02/23 08:33 Freq: NEEDED Status: Active Protocol: Document 12/02/23 08:53 MB (Rec: 12/02/23 09:38 MB [id number]) Physical Therapy Current Condition Current Condition Evaluation Date 12/02/23 Treatment Diagnosis Right foot pain, COVID M3 PT-IP Subjective Start: 12/02/23 08:33 Freq: NEEDED Status: Active Protocol: Document 12/02/23 08:53 MB (Rec: 12/02/23 09:38 MB [id number]) Subjective Physical Therapy Visit Type Type Initial Evaluation Visit Start Time 08:53 Visit Stop Time 09:23 Number of SALESPERSON NEW CARS Visits 0 Physical Therapy Visit Comments Patient Comments Pt states that the discoloration around her right toes are dry skin like she has on her hands. She does not think that she injured her foot and the pain is at the base of her toes and ball of her foot. Therapy Pain Assessment Pain When Pain Assessed At Rest Pain Present Pain Present Pain Reported Location Right foot Intensity 6 M4 PT-IP Mobility and Gait Start: 12/02/23 08:33 Freq: NEEDED Status: Active Protocol: Document 12/02/23 08:53 MB (Rec: 12/02/23 09:38 MB [id number]) PT-Bed Mobility Assessment Rolling Level of Assist Standby Assistance Supine to Sit Supine to Sit Standby Assistance,1 Person Assistance,Head of Bed Elevated,Bedrails Sit to Supine Sit to Supine Standby Assistance,1 Person Assistance,Head of Bed Elevated,Bedrails Scooting Scooting to Edge of Bed Standby Assistance Scooting Up and Down in Bed Standby Assistance PT-Transfer Assessment Sit to and From Stand Sit to and from Stand Standby Assistance,1 Person Assistance,Use of Upper Extremities Equipment Transfer Assistive Device Front Wheeled Walker Orthotic/Prosthetic Devices or Brace: No Transfers Transfer Destination Bed,Toilet Transfer Technique Ambulation Transfer Ability Level of Assist Contact Guard Assistance Gait Assessment Gait Gait Assistance Required: Contact Guard Assist Distance (Feet) 20 Able to Maintain Weight Bearing Status Yes During Gait Assistive Devices Assistive Device Front Wheeled Walker Orthotic/Prosthetic Devices or Brace: No Gait Deviations General Gait Pattern Antalgic,Decreased Stride Length,Decreased Feet Clearance,Flexed Trunk,Wide Based Gait Factors Limiting Gait Function Factors Limiting Gait Function Decreased Activity Tolerance, Pain,Poor Balance Comments Gait Comments O2 sats are 94% on RA and HR is 110 BPM with short gait, pt gait trains 15'x1, 20'x1 and 5' x1 in room to BR, sink, and back to bed. Pt reports increased discomfort on the ball of her right foot with WB /gait and gait is slow PT-Balance Assessment Sitting Balance and Reactions Static Sitting Balance Ability Good Dynamic Sitting Balance Ability Good Standing Balance and Reactions Static Standing Balance Ability Good Dynamic Standing Balance Ability Good Device Used RW M5 PT-IP Objective Assessments Start: 12/02/23 08:33 Freq: NEEDED Status: Active Protocol: Document 12/02/23 08:53 MB (Rec: 12/02/23 09:38 MB [id number]) Orientation Orientation/Cognition Level of Alertness Alert Language Function Ability No Deficits Noted Safety Awareness Understands Safety Issues Memory Description No Deficits Noted Comments Poor liquid sugar fortifier of home set-up as far as steps and BR Gross Range of Motion Upper Extremity ROM Assessment Within Functional Limits Lower Extremity ROM Assessment Within Functional Limits Strength Upper Extremity Strength Assessment Within Functional Limits Lower Extremity Strength Assessment Within Functional Limits Comments Strength Comments Increased soft tissue mass all over that creates some functional limits of joint mobility at hips especially M6 PT-IP Treatment Start: 12/02/23 08:33 Freq: NEEDED Status: Active Protocol: Document 12/02/23 08:53 MB (Rec: 12/02/23 09:38 MB [id number]) Physical Therapy Treatment Education Education Provided Safety M7 PT-IP Assessment and Plan Start: 12/02/23 08:33 Freq: NEEDED Status: Active Protocol: Document 12/02/23 08:53 MB (Rec: 12/02/23 09:38 MB [id number]) PT Summary Assessment and Plan Potential Rehabilitation Potential Fair Status of Condition at Evaluation Evolving Summary Impairments Pain,ROM,Strength,Balance,Bed Mobility,Transfers,Gait, Activity Tolerance Progress Towards Goals Progressing Toward Goals Assessment Summary Pt is a 48 y/o female presenting with c/o right foot pain and COVID. PT does not appreciate any bruising on right foot and pt denies injury. Soft tissue changes on right LE may be greater than the left and pt reports history of cellulitis and lymphedema. Recommend up to BR with nsg for mobility and normal hygiene. Will practice steps with PT as appropriate. Goals Bed Mobility Goal Independent Transfer Goal Independent,Cane,Front Wheeled Walker Gait Goal Independent,Cane,Front Wheel Walker Gait Distance 75 Other Goals Pt will ascend and descend 3 steps with rail and cane with no more than superv to allow safe home mobility. Days to Meet Goals 5 Frequency of Treatment Frequency Of Treatment Once a Day Treatment Plan Physical Therapy Treatment Plan Bed Mobility Training,Transfer Training,Gait Training, Therapeutic Exercise,Balance Retraining,Discharge Planning, Hot or Cold Pack,Neuromuscular Re-ed Precautions Other Precautions COVID Weight Bearing Status Weight Bearing Status Weight Bear as Tolerated Recommendations To Nursing Amount of Assist Needed 1 Person Assist Discharge Recommendations PT Discharge Recommendations Home with Assistance Transportation Needs at Discharge Private Vehicle
--- NOTE | 2023-12-02 10:38 | CM.DANOTE ---
Initial DCP Assessment Note Pt is a 48 yo female, resident of [place] , arrives with complaint of feeling ill for days, hx of PE PCP: Bandar Rees Payer: ALBERT/NEHEMIAH Reviewed chart, pt discussed in multidisciplinary rounds this morning. Expected date of discharge 12/03- home. Patient with COVID+ precautions, attempted call into patient's room which was busy. According to chart; patient lives in a condo with her son and sister. Patient's daughter is her caregiver (MELBA?) and provides assist with ADLs. Patient is on disability benefits. Patient uses cane at baseline. PT recommending return home w/assist. No barriers identified at this time to patient's safe discharge home w/family to assist; close outpatient f/u recommended. CM team will plan to follow clinical course closely in case any DC needs or concerns arise. PEGGY Arias Discharge Planning/Care Management CM Discharge Assessment Start: 12/02/23 10:35 Freq: Status: Active Protocol: Document 12/02/23 10:36 PAO (Rec: 12/02/23 10:38 PAO [id number]) Discharge Planning Assessment Assigned [employer] PEGGY Rey DPOA/Assigned Designee Name Park Castillo, daughter Contact Information [phone] Advance Directives? No Advance Directives on File No History Provided By Medical Record Prior Living Arrangements Apartment/Condo Household Members family Type of transporation used prior to Relies on Others admit Independent with ADL's No Is patient alert and oriented? Yes Needs Assistance With Bathing,Meal Prep,Managing Medications,Home Chores / Shopping Comment uses a cane at baseline Barriers to Discharge No Comment None identified at this time. PT=Home w/assist. Discharge Plan Home Transportation Arrangement Family Referrals Initiated None needed
[2023-12-02] MEDS: HYDROMORPHONE 1 MG INJ IV ×4 (13:32→21:43)
[2023-12-02 16:00] VITALS: BP 100/45; PULSE 74; RESP 18; TEMP 36.1; O2SAT 92
[2023-12-02] MEDS: ACETAMINOPHEN 325 MG TABLET 650 MG PO (16:46)
[2023-12-02] MEDS: ALBUTEROL 2.5 MG/3 ML NEB (ADULT) INH (16:57)
[2023-12-02 17:09] VITALS: PULSE 73; RESP 20; O2SAT 92
[2023-12-02 19:45] VITALS: BP 113/52; PULSE 61; RESP 20; TEMP 36.4; O2SAT 97
[2023-12-02] MEDS: REMDESIVIR 100 MG in SODIUM CHLORIDE 0.9% 250 ML 250 MG IV (22:24)
[2023-12-02 23:19] VITALS: BP 113/46; PULSE 60; RESP 18; TEMP 36.6; O2SAT 100
[2023-12-03] VITALS (8 sets, daily range): BP systolic 110–137; BP diastolic 41–55; PULSE 57–68; RESP 14–18; TEMP 36.2–36.9; O2SAT 91–95
[2023-12-03] MEDS: OXYCODONE/ACETAMINOPHEN 5/325 TABLET 2 TAB PO ×3 (02:23→21:16)
[2023-12-03] MEDS: HYDROMORPHONE 1 MG INJ IV ×2 (06:14→14:34)
[2023-12-03 09:01] LABS: Alanine Aminotransferase 20 IU/L (<35); Albumin 3.7 g/dL (3.5-5.0); Albumin Globulin Ratio 1.3 (1.0-2.8); Alkaline Phosphatase 40 U/L (38-126); Aspartate Aminotransferase 22 IU/L (14-36); BUN Creatinine Ratio 24.6 (6-22); Bilirubin Total 0.4 mg/dL (0.2-1.3); Blood Urea Nitrogen 17 mg/dL (7-17); Carbon Dioxide 31 mmol/L (22-32); Chloride 103 mmol/L (98-107); Estimated Glomerular Filt Rate > 60 mL/min (>60); Globulin 2.8 g/dL (1.7-4.1); Glucose 107 mg/dL (70-100); HEMOLYSIS < 15 (0-50); Magnesium 2.3 mg/dL (1.6-2.3); Sodium 141 mmol/L (137-145); Total Protein 6.5 g/dL (6.3-8.2)
[2023-12-03] MEDS: MULTIVITAMIN 1 TABLET 1 TAB PO (09:16)
[2023-12-03] MEDS: APIXABAN 5 MG TABLET PO ×2 (09:16→21:17)
[2023-12-03] MEDS: PANTOPRAZOLE DR 20 MG TABLET PO (09:16)
[2023-12-03] MEDS: dexAMETHasone 1 MG TABLET 6 MG PO (09:16)
[2023-12-03] MEDS: LORATADINE 10 MG TABLET PO (09:16)
[2023-12-03] MEDS: MONTELUKAST 10 MG TABLET PO (09:16)
[2023-12-03] MEDS: BENZONATATE 100 MG CAPSULE PO ×2 (09:17→14:32)
--- NOTE | 2023-12-03 11:03 | PT.IPTN ---
Physical Therapy Treatment Note M2 PT-IP Current Condition Start: 12/02/23 08:33 Freq: NEEDED Status: Active Protocol: Document 12/02/23 08:53 MB (Rec: 12/02/23 09:38 MB [id number]) Physical Therapy Current Condition Current Condition Evaluation Date 12/02/23 Treatment Diagnosis Right foot pain, COVID M3 PT-IP Subjective Start: 12/02/23 08:33 Freq: NEEDED Status: Active Protocol: Document 12/03/23 10:30 MB (Rec: 12/03/23 11:03 MB [id number]) Subjective Physical Therapy Visit Type Type Treatment Note Visit Start Time 10:30 Visit Stop Time 10:55 Number of SHIP WORKER Visits 0 Physical Therapy Visit Comments Patient Comments Pt states that she did not sleep well and that the pain in her right foot is about the same. Therapy Pain Assessment Pain When Pain Assessed At Rest Pain Present Pain Present Pain Reported Location Right foot Intensity 5 M4 PT-IP Mobility and Gait Start: 12/02/23 08:33 Freq: NEEDED Status: Active Protocol: Document 12/03/23 10:30 MB (Rec: 12/03/23 11:03 MB [id number]) PT-Bed Mobility Assessment Rolling Level of Assist Standby Assistance Supine to Sit Supine to Sit Standby Assistance,1 Person Assistance,Head of Bed Elevated,Bedrails Sit to Supine Sit to Supine Standby Assistance,1 Person Assistance,Head of Bed Elevated,Bedrails Scooting Scooting to Edge of Bed Standby Assistance Scooting Up and Down in Bed Standby Assistance PT-Transfer Assessment Sit to and From Stand Sit to and from Stand Standby Assistance,1 Person Assistance,Use of Upper Extremities Equipment Transfer Assistive Device Front Wheeled Walker Orthotic/Prosthetic Devices or Brace: No Transfers Transfer Destination Bed,Toilet Transfer Technique Ambulation Transfer Ability Level of Assist Contact Guard Assistance Gait Assessment Gait Gait Assistance Required: Contact Guard Assist Distance (Feet) 30 Able to Maintain Weight Bearing Status Yes During Gait Assistive Devices Assistive Device Front Wheeled Walker Orthotic/Prosthetic Devices or Brace: No Gait Deviations General Gait Pattern Antalgic,Decreased Stride Length,Decreased Feet Clearance,Flexed Trunk,Wide Based Gait Factors Limiting Gait Function Factors Limiting Gait Function Decreased Activity Tolerance, Pain,Poor Balance Comments Gait Comments Gait is slow and pt has ROMERO. Pt gait trains 20'x2, 25'x1, 5 'x3 with RW and CGA. She requires cues for toileting hygiene and hand washing Stair Climbing Assessment Evaluation Level of Assist On Stairs Contact Guard Assistance,1 Person Assistance Devices Stair Climbing Assistive Devices Small Base Quad Cane,Left Railing,Right Railing Technique/Endurance Stair Climbing Direction Ascend and Descend Stair Climbing Technique Step to Step Number of Steps Climbed 3 Stair Climbing Set # Repetitions (reps) 1 Comments Stair Climbing Comments Increased time and effort and leads with with left foot ascend and right foot descend PT-Balance Assessment Sitting Balance and Reactions Static Sitting Balance Ability Good Dynamic Sitting Balance Ability Good Standing Balance and Reactions Static Standing Balance Ability Good Dynamic Standing Balance Ability Good Device Used RW M5 PT-IP Objective Assessments Start: 12/02/23 08:33 Freq: NEEDED Status: Active Protocol: Document 12/02/23 08:53 MB (Rec: 12/02/23 09:38 MB [id number]) Orientation Orientation/Cognition Level of Alertness Alert Language Function Ability No Deficits Noted Safety Awareness Understands Safety Issues Memory Description No Deficits Noted Comments Poor business reporter of home set-up as far as steps and BR Gross Range of Motion Upper Extremity ROM Assessment Within Functional Limits Lower Extremity ROM Assessment Within Functional Limits Strength Upper Extremity Strength Assessment Within Functional Limits Lower Extremity Strength Assessment Within Functional Limits Comments Strength Comments Increased soft tissue mass all over that creates some functional limits of joint mobility at hips especially M6 PT-IP Treatment Start: 12/02/23 08:33 Freq: NEEDED Status: Active Protocol: Document 12/03/23 10:30 MB (Rec: 12/03/23 11:03 MB [id number]) Physical Therapy Treatment Education Education Provided Safety M7 PT-IP Assessment and Plan Start: 12/02/23 08:33 Freq: NEEDED Status: Active Protocol: Document 12/03/23 10:30 MB (Rec: 12/03/23 11:03 MB [id number]) PT Summary Assessment and Plan Potential Rehabilitation Potential Fair Status of Condition at Evaluation Evolving Summary Impairments Pain,ROM,Strength,Balance,Bed Mobility,Transfers,Gait, Activity Tolerance Progress Towards Goals Progressing Toward Goals Assessment Summary Pt presents with ROMERO and reports increasing right foot pain with increased time up. She cannot gait train far and does ascend and descend 3 steps with rails today and SBQC. Goals Bed Mobility Goal Independent Transfer Goal Independent,Cane,Front Wheeled Walker Gait Goal Independent,Cane,Front Wheel Walker Gait Distance 75 Other Goals Pt will ascend and descend 3 steps with rail and cane with no more than superv to allow safe home mobility. Days to Meet Goals 5 Frequency of Treatment Frequency Of Treatment Once a Day Treatment Plan Physical Therapy Treatment Plan Bed Mobility Training,Transfer Training,Gait Training, Therapeutic Exercise,Balance Retraining,Discharge Planning, Hot or Cold Pack,Neuromuscular Re-ed Precautions Other Precautions COVID Weight Bearing Status Weight Bearing Status Weight Bear as Tolerated Recommendations To Nursing Amount of Assist Needed 1 Person Assist Discharge Recommendations PT Discharge Recommendations Home with Assistance Transportation Needs at Discharge Private Vehicle
--- NOTE | 2023-12-03 11:18 | PM.PN.1 ---
Subjective Subjective Interval history: Summary: She was admitted with a fallen COVID. She was asthma exacerbation. She has a saturations of 94% on room air today. Subjective: She still feels quite winded with moving and does not feel strong enough to return home where she is many stairs. She was improving. Exam Vital Signs (past 8 hours): - 12/03/23 03:24 12/03/23 03:28 12/03/23 06:17 Temperature 97.3 F L Pulse Rate 63 Respiratory Rate 18 Blood Pressure 110/44 L 112/43 L Pulse Oximetry 94 95 Oxygen Delivery Method Oxygen Flow Rate 2 1 12/03/23 07:00 12/03/23 08:00 Temperature 97.4 F L Pulse Rate 61 Respiratory Rate 14 Blood Pressure 137/55 L Pulse Oximetry 93 Oxygen Delivery Method Nasal Cannula Oxygen Flow Rate 1 Oxygen Delivery Method Nasal Cannula Oxygen Flow Rate 1 Narrative Exam Narrative: NAD, alert and oriented. Fluent speech. Lungs are notable for diffuse expiratory wheezing, normal rate and effort. Heart is regular, no murmur gallop or rub. Abdomen is soft, non distended. Extremities are free of edema. Right foot is tender to palpation. Objective Labs 12/01/23 20:50 12/03/23 08:25 Labs: Laboratory Results - last 24 hr 12/03/23 08:25 Sodium 141 Potassium 4.0 Chloride 103 Carbon Dioxide 31 BUN 17 Creatinine 0.69 Estimated GFR > 60 BUN/Creatinine Ratio 24.6 H Glucose 107 H Calcium 9.0 Magnesium 2.3 Total Bilirubin 0.4 AST 22 ALT 20 Alkaline Phosphatase 40 Total Protein 6.5 Albumin 3.7 Globulin 2.8 Albumin/Globulin Ratio 1.3 [facility] Medical History Acquired iron deficiency anemia due to decreased absorption IBS (irritable bowel syndrome) History of kidney stones Hx of migraine headaches Hx of chronic arthritis Acute cystitis Hepatomegaly Diarrhea Reflux esophagitis Osteoarthritis of knees, bilateral Knee pain, bilateral Lateral meniscus tear Medial meniscus tear Low back pain Asthma Restless legs RBC microcytosis Fibromyalgia Inflamed acrochordon Strain of right biceps muscle Tympanic membrane perforation, nontraumatic UTI (urinary tract infection) Adnexal mass Restrictive lung disease Moderate persistent asthma Wound infection Concentric left ventricular hypertrophy (~05/2017) Kidney stones Wound of right lower extremity Lymphedema Ovarian cyst (03/28/15) Pneumonia (2009) Hypertension Migraines Sleep apnea Hypertriglyceridemia Surgical History History of esophagogastroduodenoscopy (EGD) (~04/2015) History of History of laparoscopic appendectomy (03/28/15) History of ovarian cystectomy History of placement of ear tubes History of tonsillectomy Family History Father Gout Kidney stone Mother Atrial fibrillation Cancer Eczema Urinary tract bacterial infections Kidney stone Grandfather No problems noted. Grandmother No problems noted. Grandfather No problems noted. Grandmother No problems noted. Sister Eczema Son Dyskeratosis congenita Other Hyperlipidemia Hypertension Social History marital status: unmarried,single number of children: 2 household members: family Smoking Status: Former smoker Tobacco: How many years used: 17 second hand exposure: No alcohol intake: former caffeine: Yes Assessment & Plan Assessment & Plan narrative: 1. Acute respiratory failure with hypoxia secondary to covid-19 pneumonia, present on admission and active. -Previous COVID infection in 2019. Not vaccinated. -Remdesivir per protocol, 5 days. -Dexamethasone 6 mg by mouth daily -Supplemental oxygen as needed -Restarted Eliquis for DVT prophylaxis. 2. Right foot pain, present on admission and active. -X-ray negative for any fracture. Uric acid elevated. Suspects gout. Steroids, pain meds prn and PT evaluation. 3. Moderate persistent asthma. Restart Singulair, albuterol and DuoNeb as needed. 4. Hypertension. Restart propranolol. 5. History of bilateral pulmonary emboli diagnosed in July 2023. Continue Eliquis. 6. Super morbidly obese. PT and OT evaluation. 7. Obstructive sleep apnea. Chronic. Stable. CPAP at night per protocol 8. GERD. History of GI bleed. Restart PPI. 9. Fibromyalgia. Restart Neurontin. PLAN: -continue remdesivir and IV dexamethasone. -monitor breathing, and wean oxygen as able. -continue apixaban -continue other routine medications. CHRISTI: 12/03, home. Assuming strength and breathing improve. Time-Based Coding Time-Based Coding :: 20 min spent with patient and on the chart (including review of chart, obtaining history, exam, reviewing outside data, placing orders, documenting exam and treatment plan, and counseling patient) on 12/02. Quality VTE Deep Vein Thrombosis/Pulmonary Embolism Present on Admission: No
--- NOTE | 2023-12-03 11:39 | OT.IPNOTE ---
Attempted to see pt for OT eval. Pt requesting to rest and requests that OT return tomorrow. Pt is planned for d/c home with family support tomorrow per pt report.
--- NOTE | 2023-12-03 12:29 | CM.DPC ---
DCP Cont. Reviewed EMR and team rounds for status updates. Per Hospitalist, pt will continue the Remdesivir and Dexamethasone, d/c is anticipated for tomorrow, 12/03. No anticipated home d/c needs at this time.
[2023-12-03] MEDS: ALBUTEROL 2.5 MG/3 ML NEB (ADULT) INH (20:19)
[2023-12-03] MEDS: MELATONIN 3 MG TABLET 9 MG PO (21:16)
[2023-12-03] MEDS: methocarbamoL 500 MG TABLET PO (21:17)
[2023-12-03] MEDS: REMDESIVIR 100 MG in SODIUM CHLORIDE 0.9% 250 ML 250 MG IV (21:20)
[2023-12-04] MEDS: OXYCODONE IR 5 MG TABLET 10 MG PO ×2 (03:09→09:46)
--- NOTE | 2023-12-04 03:56 | PC.NURSE ---
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 Staff attempted multiple IV sticks, including US guided, unable to obtain access. Patient has lymphedema in extremities, and declines IV pokes in the wrist. Notified SAMARA Montoya to leave IV out.
[2023-12-04 07:35] LABS: Alanine Aminotransferase 18 IU/L (<35); Albumin 3.6 g/dL (3.5-5.0); Albumin Globulin Ratio 1.3 (1.0-2.8); Alkaline Phosphatase 39 U/L (38-126); Aspartate Aminotransferase 26 IU/L (14-36); Bilirubin Total 0.3 mg/dL (0.2-1.3); Blood Urea Nitrogen 20 mg/dL (7-17); Calcium 8.9 mg/dL (8.4-10.2); Carbon Dioxide 31 mmol/L (22-32); Chloride 103 mmol/L (98-107); Estimated Glomerular Filt Rate > 60 mL/min (>60); Globulin 2.7 g/dL (1.7-4.1); Glucose 101 mg/dL (70-100); HEMOLYSIS < 15 (0-50); Magnesium 2.3 mg/dL (1.6-2.3); Potassium 4.2 mmol/L (3.4-5.1); Sodium 139 mmol/L (137-145); Total Protein 6.3 g/dL (6.3-8.2)
[2023-12-04 07:55] VITALS: BP 124/49; PULSE 57; RESP 16; TEMP 36.6; O2SAT 96
[2023-12-04 08:03] VITALS: O2SAT 95
[2023-12-04] MEDS: MULTIVITAMIN 1 TABLET 1 TAB PO (09:45)
[2023-12-04] MEDS: PANTOPRAZOLE DR 20 MG TABLET PO (09:45)
[2023-12-04] MEDS: MONTELUKAST 10 MG TABLET PO (09:45)
[2023-12-04] MEDS: APIXABAN 5 MG TABLET PO (09:45)
[2023-12-04] MEDS: LORATADINE 10 MG TABLET PO (09:45)
[2023-12-04] MEDS: dexAMETHasone 4 MG TABLET 6 MG PO (09:46)
[2023-12-04] MEDS: BENZONATATE 100 MG CAPSULE PO (09:46)
--- NOTE | 2023-12-04 11:11 | PM.DS.1 ---
History of Present Illness History of Present Illness Chief complaint: rt foot inj/sick/no energy Narrative: 48 years old female with history of hypertension, hyperlipidemia, pulmonary emboli on Eliquis, obstructive sleep apnea, fibromyalgia, moderate persistent asthma, osteoarthritis of bilateral knees, GERD, iron deficiency anemia, IBS, restless leg syndrome, presented to the ER with generalized weakness, malaise, body aches, shortness of breath, dry cough, and right foot pain in the last couple of days getting progressively worse. The patient was using her home inhaler without any relief. Denies any fever but substernal chest pain on and off and unable to ambulate due to her pain. Denies any nausea, vomiting, abdominal pain, diarrhea or dysuria. In the ER she was found to be mildly hypoxic with COVID and was decided to be admitted for further management. Laboratory was remarkable for blood sugar of 147, uric acid 8.5, AST 41, troponin 0.0 12, procalcitonin 0.0 93, TSH 159. Chest x-ray shows cardiomegaly with mild vascular congestion, right foot x-ray shows no acute bone abnormalities. She was given albuterol nebulizer, Toradol 15 mg IV, methylprednisolone 125 mg IV. Discharge Providers Provider Date of admission: 12/01/23 22:19 Discharge Date: 12/04/23 Primary care physician: Bandar Rees DO Consults: 12/01/23 22:48 Consult to Occupational Therapy Evaluate & Treat Comment: Physician Instructions: Evaluate and treat Consult to Physical Therapy Evaluate & Treat Comment: Physician Instructions: Evaluate and Treat Discharge provider: Gregor Pinto MD Summary Hospital Course Discharge Diagnosis: 1. Acute respiratory failure with hypoxia secondary to covid-19 pneumonia, present on admission and improved. -Previous COVID infection in 2019. Not vaccinated. -Remdesivir per protocol, 5 days. -Dexamethasone 6 mg by mouth daily -Restarted Eliquis for DVT prophylaxis. 2. Right foot pain, present on admission and improved. -X-ray negative for any fracture. Uric acid elevated. Possible gout. 3. Moderate persistent asthma with exacerbation. Present on admission and improving. Restart Singulair, albuterol and DuoNeb as needed. 4. Hypertension. Present on admission and stable. Restart propranolol. 5. History of bilateral pulmonary emboli diagnosed in July 2023. Present on admission and stable. Continue Eliquis. 6. Super morbidly obese. Present on admission and stable. BMI is 64.6. PT and OT evaluation. 7. Obstructive sleep apnea. Present on admission and stable. Chronic. Stable. CPAP at night per protocol 8. GERD. Present on admission and stable. History of GI bleed. Restart PPI. 9. Fibromyalgia. Present on admission and stable. Restart Neurontin. Hospital Course: She was admitted with dyspnea and acute hypoxic respiratory failure in context of having COVID and a asthma exacerbation. She was treated with remdesivir and dexamethasone as well bronchodilators improved over the next 2-1/2 days. She weaned off from oxygen and had no fevers. Her appetite was reasonable. On the day of discharge her strength had improved to the point that she felt that she would be all right discharging home. She will continue steroids at home and refills are sent for her nebulizers and MDI. She did have foot pain with negative x-rays that improved while she was in the hospital. She was able to ambulate adequately with physical therapy. Status at Discharge Cognitive/behavioral status at discharge: oriented Functional status at discharge: independent ambulation Overall status at discharge: patient is back to baseline Time Spent with Patient Time spent: Greater than 30 minutes Exam Vital Signs (past 8 hours): - 12/04/23 07:55 12/04/23 08:03 Temperature 97.9 F Pulse Rate 57 L Respiratory Rate 16 Blood Pressure 124/49 L Pulse Oximetry 96 95 Oxygen Delivery Method Nasal Cannula Oxygen Flow Rate 1 1 Fraction of Inspired Oxygen 21 SaO2/FiO2 Ratio 438 Oxygen Delivery Method Nasal Cannula Oxygen Flow Rate 1 Narrative Exam Narrative: NAD, alert and oriented. Fluent speech. She was able to speak without difficulty. Lungs are clear, normal rate and effort. She does have occasional expiratory wheezes which are scattered but much improved over admission. Heart is regular, no murmur gallop or rub. Abdomen is soft, non distended. Extremities are free of edema. Objective Imaging Multiple studies:: Radiologist's impression: Chest x-ray reveals cardiomegaly and mild vascular congestion. Poor inspiratory effort. Foot x-ray is negative for evidence of fracture. No dislocation. Labs 12/01/23 20:50 12/04/23 06:45 Labs: Laboratory Results - last 24 hr 12/04/23 06:45 Sodium 139 Potassium 4.2 Chloride 103 Carbon Dioxide 31 BUN 20 H Creatinine 0.77 Estimated GFR > 60 BUN/Creatinine Ratio 26.0 H Glucose 101 H Calcium 8.9 Magnesium 2.3 Total Bilirubin 0.3 AST 26 ALT 18 Alkaline Phosphatase 39 Total Protein 6.3 Albumin 3.6 Globulin 2.7 Albumin/Globulin Ratio 1.3 [facility] Medical History Acquired iron deficiency anemia due to decreased absorption IBS (irritable bowel syndrome) History of kidney stones Hx of migraine headaches Hx of chronic arthritis Acute cystitis Hepatomegaly Diarrhea Reflux esophagitis Osteoarthritis of knees, bilateral Knee pain, bilateral Lateral meniscus tear Medial meniscus tear Low back pain Asthma Restless legs RBC microcytosis Fibromyalgia Inflamed acrochordon Strain of right biceps muscle Tympanic membrane perforation, nontraumatic UTI (urinary tract infection) Adnexal mass Restrictive lung disease Moderate persistent asthma Wound infection Concentric left ventricular hypertrophy (~05/2017) Kidney stones Wound of right lower extremity Lymphedema Ovarian cyst (03/28/15) Pneumonia (2008) Hypertension Migraines Sleep apnea Hypertriglyceridemia Surgical History History of esophagogastroduodenoscopy (EGD) (~04/2015) History of History of laparoscopic appendectomy (03/28/15) History of ovarian cystectomy History of placement of ear tubes History of tonsillectomy Family History Father Gout Kidney stone Mother Atrial fibrillation Cancer Eczema Urinary tract bacterial infections Kidney stone Grandfather No problems noted. Grandmother No problems noted. Grandfather No problems noted. Grandmother No problems noted. Sister Eczema Son Dyskeratosis congenita Other Hyperlipidemia Hypertension Social History marital status: unmarried,single number of children: 2 household members: family Smoking Status: Former smoker Tobacco: How many years used: 17 second hand exposure: No alcohol intake: former caffeine: Yes Discharge Assessment & Plan Assessment and Plan Assessment: 1. Acute respiratory failure with hypoxia secondary to covid-19 pneumonia, present on admission and improved. -Previous COVID infection in 2019. Not vaccinated. -Remdesivir per protocol, 5 days. -Dexamethasone 6 mg by mouth daily -Restarted Eliquis for DVT prophylaxis. 2. Right foot pain, present on admission and improved. -X-ray negative for any fracture. Uric acid elevated. Possible gout. 3. Moderate persistent asthma with exacerbation. Present on admission and improving. Restart Singulair, albuterol and DuoNeb as needed. Plan of Treatment: Discharge home, we will continue steroids for an additional 5 days. Albuterol MDI and Duonebulizers are sent to their pharmacy. Discharge Plan Discharge Plan Patient Disposition: Home Discharge orders & Medications Prescriptions: Continued (DME) QUAD CANE Qty: 1 0RF Dose Instruction: As directed Rx Instructions: Use to assist with walking (DME) Disabled Parking Permit See Rx Instructions .Route .MEDSUPPLY Qty: 1 0RF Rx Instructions: I find this patient to be medically disabled and qualified for disabled parking as indicated, and signed, on the accompanying application omeprazole 20 mg capsule,delayed release(DR/EC) 20 mg PO DAILY Qty: 90 1RF methocarbamol 500 mg tablet 500 mg PO TID PRN (Reason: mm spasm) Qty: 60 3RF loratadine 10 mg capsule 10 mg PO DAILY Qty: 90 1RF montelukast 10 mg tablet 10 mg PO DAILY Qty: 90 1RF oxycodone-acetaminophen 5-325 mg tablet 2 tab PO TID PRN (Reason: pain) Qty: 42 0RF (DME) GRAB BARS FOR SHOWER Qty: 3 0RF Rx Instructions: 3 Grab bars needed for shower to prevent falls propranolol 10 mg tablet 10 mg PO BID Qty: 180 3RF Rx Instructions: PT TAKES IT NEEDED Eliquis 5 mg tablet 5 mg PO BID Qty: 180 2RF Rx Instructions: continue taking twice a day 05/25/23 multivitamin Tablet 1 tab PO DAILY (DME) nebulizer See Rx Instructions .Route .MEDSUPPLY Qty: 1 0RF Rx Instructions: Nebulizer and equipment #1, 0 refills Albuterol 2.5 mg/3 mL 1 vial 2 times daily as needed # 60, 11 refills nystatin 100,000 unit/gram powder 1 applictn TOP TID PRN (Reason: Rash) Rx Instructions: Apply up to 3 times daily prn to underarms and in the a.m. to leg creases vdddddja-spkmzjpuk-AG 3.5-10,000-1 mg/mL-unit/mL-% drops,suspension 4 drp EAR-RIGHT BID PRN (Reason: Pain (Scale Score 4-6)) ipratropium-albuterol 0.5 mg-3 mg(2.5 mg base)/3 mL solution for nebulization 3 ml inhalation Q6HP PRN (Reason: wheezing/ shortness of breath) Qty: 90 1RF prednisone 20 mg tablet 40 mg PO DAILY Qty: 20 0RF Rx Instructions: Take for 5 days albuterol sulfate [Ventolin HFA] 90 mcg/actuation HFA aerosol inhaler 2 puff INHALATION Q4-6H PRN (Reason: Shortness Of Breath) Qty: 1 3RF Follow up/Referrals: Bandar Rees, [Primary Care Provider] - Discharge Health Status Multidrug resistant organism: No MDRO Diet/Activity/Treatments Diet: Regular Activity: As tolerated. Skin/Wound/Dressing Care Report to your healthcare provider any signs of infection, such as:: chills, fever Visit Report/Discharge Packet Instructions: DI for Asthma -- Adult, DI for COVID-19 (Suspected or Confirmed ) Stand Alone Forms: Patient Portal/API Discharge Data Primary Care Provider: Bandar Rees Quality VTE Deep Vein Thrombosis/Pulmonary Embolism Present on Admission: No
[2023-12-04 11:30] VITALS: BP 129/53; PULSE 63; RESP 20; TEMP 36.4; O2SAT 92
--- NOTE | 2023-12-04 12:22 | CM.DPC ---
DCP Cont. Reviewed EMR and team rounds for status updates. Pt has improved and has been medically cleared for home d/c. Family will be transporting her back home. No further DCP needs identified at this time.
== END 2023-12-04 13:15 | disposition home or self-care (01) | DRG 177 ==
LOC: ED 21:57 → AC 12-02 07:55
PROVIDERS: Admitting Provider Internal Medicine; Emergency Provider Emergency Medicine; PCP Family Medicine; Visit Provider Internal Medicine
DX: U07.1 COVID-19 (principal); J12.82 Pneumonia due to coronavirus disease 2019; J96.01 Acute respiratory failure with hypoxia; Z68.44 Body mass index [BMI] 60.0-69.9, adult; J45.41 Moderate persistent asthma with (acute) exacerbation; M79.671 Pain in right foot; I10 Essential (primary) hypertension; E66.01 Morbid (severe) obesity due to excess calories; G47.33 Obstructive sleep apnea (adult) (pediatric); K21.9 Gastro-esophageal reflux disease without esophagitis; M79.7 Fibromyalgia; Z28.310 Unvaccinated for COVID-19; Z79.52 Long term (current) use of systemic steroids; Z86.711 Personal history of pulmonary embolism; Z79.01 Long term (current) use of anticoagulants; Z87.891 Personal history of nicotine dependence
CPT/HCPCS: 36415; 71045; 73630; 80053; 82550; 82962; 83735; 84145; 84443; 84484; 84550; 85025; 87633; 94640; 94762; 96374; 96375; 97116; 97161; 97530; 99284; J1170; J1885; J2919; J7613

== ENCOUNTER 2024-03-10 18:37 | Emergency (ER) | payer MEDICARE, MEDICAID, SELFPAY ==
[2023-12-10 11:54] VITALS: BMI 64.5
[2024-03-10 18:50] VITALS: BP 141/73; PULSE 88; RESP 18; TEMP 36.6; O2SAT 95; BMI 64.7
[2024-03-10 19:56] LABS: Appearance Urine UA CLOUDY
[2024-03-10 19:57] LABS: Bacteria Urine Many (>30); Color Urine UA Orange; Culture Indicated Urine Specimen Cultured; Pregnancy Test Urine Negative (Negative); RBC Urine 1-5/HPF (0-5/HPF); Squamous Epithelial Cell Urine 1-5 /HPF (0-5/HPF); Urine Volume 10mL (spun); WBC Urine 30-100/HPF (0-5/HPF)
--- NOTE | 2024-03-10 20:54 | PC.NURSE ---
An attempt was made to place an IV after asking her If I could use the ultrasound. She said yes. Then she said that I needed to use a little butterfly needle. I informed her that butterfly needles were only used for lab draws and that I would select and appropriate needle for the task. The Iv was started and the patient shouted when the needle was first inserted. The patient's family member shouted stop. I asked the family member who she was yelling at and she stated that she was addressing me. I told her that I would send in another nurse to start her IV. The patient's family member aggressively came out and spoke to the charge nurse about the occurrence.
[2024-03-10] MEDS: ONDANSETRON 4 MG ODT SL (20:57)
--- NOTE | 2024-03-10 21:53 | PC.NURSE ---
I apologized to the patient and family and discussed a plan for IV placement in the future. Patient and family were agreeable to the plan of stating a need for specific IV placement in specific body locations, going forward. This plan was put in place to help alleviate pt discomfort and provide clear instructions for future IV placement prior to placing IV.
--- NOTE | 2024-03-10 22:49 | ED_ITS ---
HPI - Abdominal Pain General Chief Complaint: Urogenital-Female Stated Complaint: back px, thinks UTI or kidney stones Time Seen by Provider: 03/10/24 22:49 Source: patient Mode of arrival: Ambulatory History of Present Illness HPI narrative: patient is a 48-year-old female history of hypertension, hyperlipidemia fibromyalgia, comes into the ED from home for evaluation of abdominal pain, flank pain, she states that she has a history of urinary tract infection kidney stones states that she has had a need for stent in the past, she states that she does follow up with Urology here, has not had a kidney stone in a long time, she states that her symptoms started few days ago, also describing some nausea and vomiting. Denies any other symptoms at this time. , no trauma or falls Related Data Home Medications Medication Instructions Recorded Confirmed multivitamin 1 tab PO DAILY 08/21/19 02/01/24 [id number]-[id number]-[id number] 3.5 4 drp EAR-RIGHT BID PRN Pain 05/08/23 02/01/24 mg-10,000 unit/mL-1 % ear (Scale Score 4-6) drops,susp nystatin 100,000 unit/gram topical 1 applictn topical TID PRN Rash 05/08/23 02/01/24 powder Previous Rx's Medication Instructions Recorded QUAD CANE #1 ea 05/08/18 GRAB BARS FOR SHOWER #3 ea 04/21/19 Disabled Parking Permit #1 ea 05/24/22 nebulizer #1 ea 03/14/23 propranolol 10 mg tablet 10 mg PO BID #180 tabs 05/25/23 albuterol sulfate 90 mcg/actuation 2 puff inhalation Q4-6H PRN 12/04/23 aerosol inhaler (Ventolin HFA) Shortness Of Breath #1 unit ipratropium 0.5 mg-albuterol 3 mg 3 ml inhalation Q6HP PRN wheezing/ 12/04/23 (2.5 mg base)/3 mL nebulization shortness of breath #90 mL soln loratadine 10 mg capsule 10 mg PO DAILY #90 caps 01/10/24 methocarbamol 500 mg tablet 500 mg PO TID PRN mm spasm #60 tabs 01/10/24 montelukast 10 mg tablet 10 mg PO DAILY #90 tabs 01/10/24 apixaban 5 mg tablet (Eliquis) 5 mg PO BID #180 tabs 01/29/24 fexofenadine 180 mg tablet 180 mg PO DAILY #30 tabs 02/01/24 (Kristine Allergy) prednisone 20 mg tablet 40 mg (2 x 20 mg) PO DAILY PRN 02/01/24 exacerbation #14 tabs oxycodone-acetaminophen 5 mg-325 2 tab PO TID PRN pain #60 tabs 03/05/24 mg tablet omeprazole 20 mg capsule,delayed 20 mg PO DAILY #90 caps 03/07/24 release sulfamethoxazole 800 1 tab PO BID 14 days #28 tabs 03/11/24 mg-trimethoprim 160 mg tablet (Bactrim DS) Allergies Allergy/AdvReac Type Severity Reaction Status Date / Time yasmine Allergy Severe Anaphylaxis Verified 02/01/24 10:34 pumpkin Allergy Severe Anaphylaxis Verified 02/01/24 10:34 shellfish derived Allergy Intermediate Rash Verified 02/01/24 10:34 latex Allergy Rash Verified 02/01/24 10:34 oxycodone [OXYCODONE] AdvReac Intermediate Irritabilit Verified 02/01/24 10:34 y Review of Systems Review of Systems Narrative: General: Denies fever, chills, weight loss HEENT: Denies headache, eye drainage, eye irritation, head trauma, sore throat, voice change Cardiovascular: Denies any chest pain, palpitations, shortness of breath, tachycardia Respiratory: Denies any shortness of breath, cough, wheeze, stridor GI/: positive abdominal pain, nausea, vomiting, bilateral flank, denies, diarrhea, bright red blood per rectum, melanotic stools, urinary frequency, urinary retention, dysuria, hematuria MSK: Denies any joint pain, muscle pains, swelling Skin: Denies any rashes, lesions, discoloration Neuro: Denies any headache, lightheadedness, dizziness, fainting, weakness Psych: Denies SI/HI Patient History Medical History (Updated 03/11/24 @ 00:49 by Ayaz Peña DO) Right otitis media Acquired iron deficiency anemia due to decreased absorption IBS (irritable bowel syndrome) History of kidney stones Hx of migraine headaches Hx of chronic arthritis Acute cystitis Hepatomegaly Diarrhea Reflux esophagitis Osteoarthritis of knees, bilateral Knee pain, bilateral Lateral meniscus tear Medial meniscus tear Low back pain Asthma Restless legs RBC microcytosis Fibromyalgia Inflamed acrochordon Strain of right biceps muscle Tympanic membrane perforation, nontraumatic UTI (urinary tract infection) Adnexal mass Restrictive lung disease Moderate persistent asthma Wound infection Concentric left ventricular hypertrophy (~05/2017) Kidney stones Wound of right lower extremity Lymphedema Ovarian cyst (03/28/15) Pneumonia (2009) Hypertension Migraines Sleep apnea Hypertriglyceridemia Surgical History History of esophagogastroduodenoscopy (EGD) (~04/2015) History of History of laparoscopic appendectomy (03/28/15) History of ovarian cystectomy History of placement of ear tubes History of tonsillectomy Family History Father Gout Kidney stone Mother Atrial fibrillation Cancer Eczema Urinary tract bacterial infections Kidney stone Grandfather No problems noted. Grandmother No problems noted. Grandfather No problems noted. Grandmother No problems noted. Sister Eczema Son Dyskeratosis congenita Other Hyperlipidemia Hypertension Social History marital status: unmarried,single number of children: 2 household members: family Smoking Status: Former smoker Tobacco: How many years used: 17 second hand exposure: No alcohol intake: former caffeine: Yes Smoking Status: Former smoker alcohol intake frequency: other Substance Use Type: does not use Exam Initial Vital Signs Initial Vital Signs: Vital Signs Temperature 97.9 F 03/10/24 18:50 Pulse Rate 88 03/10/24 18:50 Respiratory Rate 18 03/10/24 18:50 Blood Pressure 141/73 H 03/10/24 18:50 Pulse Oximetry 95 03/10/24 18:50 Oxygen Delivery Method Room Air 03/10/24 18:50 Course Orders Ordered: ED Orders 03/10/24 19:31 Test Urine Stat Urinalysis and Microscopic Stat Urine Culture Stat 03/10/24 22:55 CBC No Diff [Complete Blood Count NO DIFF] Stat CMP [Comprehensive Metabolic Panel] Stat 03/10/24 23:16 CT kidney ureter bladder (KUB) Stat Ondansetron HCl (Ondansetron 4 Mg/2 Ml Inj) 4 mg IV NOW PRN PRN Reason: Nausea And Vomiting Ondansetron HCl (Ondansetron 4 Mg Odt) 4 mg SL NOW PRN PRN Reason: Nausea And Vomiting Last Admin: 03/10/24 20:57 Dose: 4 mg Documented By: EVER Discontinued Medications Ceftriaxone Sodium 1,000 mg/ (Sodium Chloride) 100 mls @ 200 mls/hr IV NOW ONE Stop: 03/10/24 22:57 Metoclopramide HCl (Metoclopramide 10 Mg/2 Ml Inj) 10 mg IV NOW ONE Stop: 03/10/24 22:56 Last Admin: 03/11/24 00:25 Dose: 10 mg Documented By: EVER Morphine Sulfate (Morphine 4 Mg/Ml Inj) 4 mg IV NOW ONE Stop: 03/10/24 22:56 Last Admin: 03/11/24 00:25 Dose: 4 mg Documented By: EVER Vital Signs Vital signs: Vital Signs - 8 hr 03/10/24 18:50 03/10/24 23:35 03/10/24 23:35 Temperature 97.9 F Pulse Rate 88 99 H Respiratory Rate 18 21 Blood Pressure 141/73 H 130/81 Pulse Oximetry 95 92 Oxygen Delivery Method Room Air Room Air MDM - Abdominal Pain Differential Diagnosis Differential diagnosis: Likely calculus of kidney and other ( urinary tract infection, pyelonephritis) Lab Data 03/11/24 00:17 03/11/24 00:17 Labs: Lab Results 03/10/24 03/11/24 Range/Units 19:31 00:17 WBC 8.2 (4.5-11.0) X10^3/uL RBC 5.07 (4.0-5.2) X10^6/uL Hgb 13.6 (12.0-16.0) g/dL Hct 41.0 (36-46) % MCV 80.8 (80-100) fL MCH 26.7 (26-34) PG MCHC 33.1 (30-36) % RDW 18.1 H (11.6-14.8) % Plt Count 244 (150-400) X10^3/uL Sodium 136 L (137-145) mmol/L Potassium 3.8 (3.4-5.1) mmol/L Chloride 102 (98-107) mmol/L Carbon Dioxide 30 (22-32) mmol/L BUN 14 (7-17) mg/dL Creatinine 0.64 (0.52-1.04) mg/dL Estimated GFR > 60 (>60) mL/min BUN/Creatinine Ratio 21.9 (6-22) Glucose 126 H (70-100) mg/dL Calcium 9.4 (8.4-10.2) mg/dL Total Bilirubin 0.5 (0.2-1.3) mg/dL AST 30 (14-36) IU/L ALT 23 (<35) IU/L Alkaline Phosphatase 61 (38-126) U/L Total Protein 7.1 (6.3-8.2) g/dL Albumin 3.9 (3.5-5.0) g/dL Globulin 3.2 (1.7-4.1) g/dL Albumin/Globulin Ratio 1.2 (1.0-2.8) Urine Color [place] Urine Appearance Cloudy Urine pH TNP Ur Specific [place] TNP Urine Protein TNP Urine Glucose (UA) TNP Urine Ketones TNP Urine Occult Blood TNP Urine Nitrate TNP Urine Bilirubin TNP Urine Urobilinogen TNP Ur Leukocyte Esterase TNP Urine RBC 1-5/hpf (0-5/HPF) Urine WBC 30-100/hpf H (0-5/HPF) Ur Squamous Epith Cells 1-5 /hpf (0-5/HPF) Urine Bacteria Many (>30) H (None) Ur Culture Indicated? Specimen cultured Vol Urine Centrifuged 10ml (spun) Urine Test Negative (Negative) Imaging Data CT scan - abdomen/pelvis: Radiologist's Impression: [place] [address] CT Scan Report Signed Patient: Cady Castillo MR#: [id number] : 1975 Acct:[id number] Age/Sex: 48 / F Date of Service: 03/10/24 Loc: ED Accession Number: [id number] Procedure: CT kidney ureter bladder (KUB) Ordering Provider: Ayaz Peña D.O. PROCEDURE: CT KIDNEY URETER BLADDER (KUB) INDICATIONS: flank pain, hx of kidney stones TECHNIQUE: Axial sections were acquired from the lung bases to the pubic symphysis. Coronal and sagittal reformats were performed. For radiation dose reduction, the following was used: automated exposure control, adjustment of mA and/or kV according to patient size. COMPARISON: [facility], CT, CT ABDOMEN PELVIS W CON, 03/30/2023, 15:02. FINDINGS: Image quality: Diagnostic. Lower Chest: No significant findings. URINARY: Right Kidney: 8 mm calculus at the superior pole. 7 mm calculus in the renal pelvis. 11 mm calculus at the inferior pole. Additional smaller nonobstructing calculi. The calculi measure 250-400 Hounsfield units. Right Ureter: Mild periureteral fat stranding without significant hydroureter. Left Kidney: Non-obstructing 4 mm calculus at the inferior pole. No hydronephrosis. Left Ureter: No hydroureter. Bladder: Normal wall thickness. No stones. ABDOMEN: Liver: No contour-deforming solid mass. Liver is enlarged hypoattenuating, consistent with fatty infiltration. Gallbladder: No radiopaque gallstones or wall thickening. Biliary ducts: No biliary dilation. Pancreas: No ductal dilation. Spleen: Size is within normal limits. Adrenal Glands: No adrenal nodules. Stomach and Bowel: A diverticulum is seen at the 2nd portion of the duodenum without acute inflammatory changes. A few scattered diverticula are seen in the colon without signs acute diverticulitis. Small bowel loops and stomach are unremarkable. Peritoneum: No abnormal intraperitoneal fluid. No free air. Ventral Wall: Moderately sized fat containing ventral hernia in the pelvis. Abdominal Nodes: No enlarged retroperitoneal or mesenteric lymph nodes. Vessels: Aorta and inferior vena cava are normal in size. PELVIS: Pelvic Organs: Enlarged cystic and solid mass in the left adnexa is again seen, which appears minimally decreased in size when compared to the CT from 03/30/2023. A stable cystic lesion is seen in the right adnexal region. Pelvic Nodes: Unremarkable. Miscellaneous: No inguinal hernias are seen. Bones: Unremarkable. IMPRESSION: 1. Multiple nonobstructing calculi in the right kidney and renal pelvis. Mild right periureteral fat stranding is seen without significant hydroureter or obstructing calculus. 2. Small non-obstructing left renal calculus. 3. Large multi-cystic mass again seen centered in the left adnexa that is stable to minimally decreased in size when compared to the CT from 03/30/2023. 4. Hepatomegaly and diffuse hepatic steatosis. 5. Moderate fat containing lower abdominal ventral hernia. MDM Narrative Medical decision making narrative: Patient is a 48-year-old female history of kidney stones, hypertension, hyperlipidemia, fibromyalgia urine infection presents for abdominal pain flank pain ongoing persistent for the past few days. patient with urinalysis positive for urinary tract infection, CT scan was performed here showed nephrolithiasis without ureterolithiasis. Stent with significantly improved symptoms after administration medication here, patient was given dose of Rocephin for urinary tract infection / pyelonephritis. CT scan also showing mild perinephric stranding without obstruction, patient with normal creatinine, no leukocytosis, patient will be sent home with antibiotics for pyelonephritis, she instructed to follow up with primary care and Urology in outpatient setting she was given strict return precautions she verbalized understanding of this and agrees to being discharged home with outpatient follow up Discharge Plan Departure Patient Disposition: Home Clinical Impression: Pyelonephritis Activity Restrictions/Additional Instructions: please follow up with Urology and primary care Please read the discharge instructions sheet carefully and bring all papers to all doctor follow-up visits, as it may contain information that your doctor may want to see. Disease processes change and evolve, if your symptoms worsen or if you develop any new symptoms that are concerning to you please return for evaluation. Your evaluation today does not show any evidence of any life- threatening/serious illnesses requiring admission to the hospital or surgery. Please follow-up with your doctor for re-evaluation in approximately 1 day. Seek immediate medical attention for any worrisome symptoms. Prescriptions: New sulfamethoxazole-trimethoprim [Bactrim DS] 800-160 mg tablet 1 tab PO BID 14 Days Qty: 28 0RF No Action (DME) QUAD CANE Qty: 1 0RF Dose Instruction: As directed Rx Instructions: Use to assist with walking (DME) Disabled Parking Permit See Rx Instructions .Route .MEDSUPPLY Qty: 1 0RF Rx Instructions: I find this patient to be medically disabled and qualified for disabled parking as indicated, and signed, on the accompanying application loratadine 10 mg capsule 10 mg PO DAILY Qty: 90 1RF methocarbamol 500 mg tablet 500 mg PO TID PRN (Reason: mm spasm) Qty: 60 3RF montelukast 10 mg tablet 10 mg PO DAILY Qty: 90 1RF Eliquis 5 mg tablet 5 mg PO BID Qty: 180 2RF Rx Instructions: continue taking twice a day 05/25/23 oxycodone-acetaminophen 5-325 mg tablet 2 tab PO TID PRN (Reason: pain) Qty: 60 0RF omeprazole 20 mg capsule,delayed release(DR/EC) 20 mg PO DAILY Qty: 90 1RF (DME) GRAB BARS FOR SHOWER Qty: 3 0RF Rx Instructions: 3 Grab bars needed for shower to prevent falls propranolol 10 mg tablet 10 mg PO BID Qty: 180 3RF Rx Instructions: PT TAKES IT NEEDED multivitamin Tablet 1 tab PO DAILY (DME) nebulizer See Rx Instructions .Route .MEDSUPPLY Qty: 1 0RF Rx Instructions: Nebulizer and equipment #1, 0 refills Albuterol 2.5 mg/3 mL 1 vial 2 times daily as needed # 60, 11 refills fexofenadine [Kristine Allergy] 180 mg tablet 180 mg PO DAILY Qty: 30 1RF prednisone 20 mg tablet 40 mg PO DAILY PRN (Reason: exacerbation) Qty: 14 0RF Rx Instructions: take two tabs once a day for a week as needed for asthma exacerbation nystatin 100,000 unit/gram powder 1 applictn TOP TID PRN (Reason: Rash) Rx Instructions: Apply up to 3 times daily prn to underarms and in the a.m. to leg creases aviupqse-[id number]-QC 3.5-10,000-1 mg/mL-unit/mL-% drops,suspension 4 drp EAR-RIGHT BID PRN (Reason: Pain (Scale Score 4-6)) ipratropium-albuterol 0.5 mg-3 mg(2.5 mg base)/3 mL solution for nebulization 3 ml inhalation Q6HP PRN (Reason: wheezing/ shortness of breath) Qty: 90 1RF albuterol sulfate [Ventolin HFA] 90 mcg/actuation HFA aerosol inhaler 2 puff INHALATION Q4-6H PRN (Reason: Shortness Of Breath) Qty: 1 3RF Referrals: Bandar Rees, [Primary Care Provider] - Stand Alone Forms: Patient Portal/API/Survey
--- NOTE | 2024-03-10 23:03 | PC.NURSE ---
pt refused to stand on the scales to obtain weight. explained to pt why the accurate weight was needed. pt was able to stand from the wc earlier and walk to the commode
--- NOTE | 2024-03-10 23:16 | DI.CT.S_ITS ---
PROCEDURE: CT KIDNEY URETER BLADDER (KUB) INDICATIONS: flank pain, hx of kidney stones TECHNIQUE: Axial sections were acquired from the lung bases to the pubic symphysis. Coronal and sagittal reformats were performed. For radiation dose reduction, the following was used: automated exposure control, adjustment of mA and/or kV according to patient size. COMPARISON: [facility], CT, CT ABDOMEN PELVIS W CON, 03/30/2023, 15:02. FINDINGS: Image quality: Diagnostic. Lower Chest: No significant findings. URINARY: Right Kidney: 8 mm calculus at the superior pole. 7 mm calculus in the renal pelvis. 11 mm calculus at the inferior pole. Additional smaller nonobstructing calculi. The calculi measure 250-400 Hounsfield units. Right Ureter: Mild periureteral fat stranding without significant hydroureter. Left Kidney: Non-obstructing 4 mm calculus at the inferior pole. No hydronephrosis. Left Ureter: No hydroureter. Bladder: Normal wall thickness. No stones. ABDOMEN: Liver: No contour-deforming solid mass. Liver is enlarged hypoattenuating, consistent with fatty infiltration. Gallbladder: No radiopaque gallstones or wall thickening. Biliary ducts: No biliary dilation. Pancreas: No ductal dilation. Spleen: Size is within normal limits. Adrenal Glands: No adrenal nodules. Stomach and Bowel: A diverticulum is seen at the 2nd portion of the duodenum without acute inflammatory changes. A few scattered diverticula are seen in the colon without signs acute diverticulitis. Small bowel loops and stomach are unremarkable. Peritoneum: No abnormal intraperitoneal fluid. No free air. Ventral Wall: Moderately sized fat containing ventral hernia in the pelvis. Abdominal Nodes: No enlarged retroperitoneal or mesenteric lymph nodes. Vessels: Aorta and inferior vena cava are normal in size. PELVIS: Pelvic Organs: Enlarged cystic and solid mass in the left adnexa is again seen, which appears minimally decreased in size when compared to the CT from 03/30/2023. A stable cystic lesion is seen in the right adnexal region. Pelvic Nodes: Unremarkable. Miscellaneous: No inguinal hernias are seen. Bones: Unremarkable. IMPRESSION: 1. Multiple nonobstructing calculi in the right kidney and renal pelvis. Mild right periureteral fat stranding is seen without significant hydroureter or obstructing calculus. 2. Small non-obstructing left renal calculus. 3. Large multi-cystic mass again seen centered in the left adnexa that is stable to minimally decreased in size when compared to the CT from 03/30/2023. 4. Hepatomegaly and diffuse hepatic steatosis. 5. Moderate fat containing lower abdominal ventral hernia. Approved by: Ha Parsons M.D. on 03/11/2024 at 0:15
[2024-03-10 23:35] VITALS: BP 130/81; PULSE 99; RESP 21; O2SAT 92
[2024-03-11] VITALS: PULSE 89; O2SAT 92
[2024-03-11 00:01] VITALS: BP 131/73
[2024-03-11 00:25] LABS: Hemoglobin 13.6 g/dL (12.0-16.0); Mean Corpuscular HGB Conc 33.1 % (30-36); Mean Corpuscular Hemoglobin 26.7 PG (26-34); Mean Corpuscular Volume 80.8 fL (80-100); Platelet Count 244 X10^3/uL (150-400); Red Blood Cell Count 5.07 X10^6/uL (4.0-5.2); Red Cell Distribution Width 18.1 % (11.6-14.8); White Blood Cell Count 8.2 X10^3/uL (4.5-11.0)
[2024-03-11] MEDS: METOCLOPRAMIDE 10 MG/2 ML INJ IV (00:25)
[2024-03-11] MEDS: MORPHINE 4 MG/ML INJ IV (00:25)
[2024-03-11 00:33] VITALS: BP 126/58; PULSE 84; RESP 18; O2SAT 93
[2024-03-11 00:40] LABS: Alanine Aminotransferase 23 IU/L (<35); Albumin 3.9 g/dL (3.5-5.0); Albumin Globulin Ratio 1.2 (1.0-2.8); Alkaline Phosphatase 61 U/L (38-126); Aspartate Aminotransferase 30 IU/L (14-36); BUN Creatinine Ratio 21.9 (6-22); Bilirubin Total 0.5 mg/dL (0.2-1.3); Blood Urea Nitrogen 14 mg/dL (7-17); Calcium 9.4 mg/dL (8.4-10.2); Carbon Dioxide 30 mmol/L (22-32); Chloride 102 mmol/L (98-107); Estimated Glomerular Filt Rate > 60 mL/min (>60); Globulin 3.2 g/dL (1.7-4.1); Glucose 126 mg/dL (70-100); HEMOLYSIS 18 (0-50); Potassium 3.8 mmol/L (3.4-5.1); Sodium 136 mmol/L (137-145); Total Protein 7.1 g/dL (6.3-8.2)
[2024-03-11] MEDS: cefTRIAXone 1,000 MG in SODIUM CHLORIDE 0.9% 100 ML 200 MG IV (00:49)
[2024-03-11 01:00] VITALS: BP 139/63; PULSE 86; RESP 17; O2SAT 97
== END 2024-03-11 01:30 | disposition home or self-care (01) ==
PROVIDERS: Emergency Provider Student in an Organized Health Care Education/Training Program; PCP Family Medicine
DX: N12 Tubulo-interstitial nephritis, not specified as acute or chronic (principal); R11.2 Nausea with vomiting, unspecified; Z79.899 Other long term (current) drug therapy; Z87.442 Personal history of urinary calculi
CPT/HCPCS: 74176; 80053; 81001; 81025; 85027; 87077; 87086; 96365; 96375; 99284; J0696; J2270; J2765

== ENCOUNTER 2024-04-29 16:06 | Emergency (ER) | payer MEDICARE, MEDICAID, SELFPAY ==
[2023-12-10 11:54] VITALS: BMI 64.5
[2024-04-29 16:12] VITALS: BP 136/77; PULSE 89; RESP 22; TEMP 36.7; O2SAT 94; BMI 64.7
--- NOTE | 2024-04-29 16:28 | EKG_ITS ---
[address] [address] Test Date: 2024-04-29 Pat Name: Cady Castillo Department: Room: Gender: Female Client Support Professional: BALDEMAR : 1975 Requested By: Order Number: [id number] Reading MD: Gregor Pinto Measurements Intervals [place] Rate: 83 P: 40 CT: 182 QRS: -17 QRSD: 84 T: 10 QT: 366 QTc: 430 Interpretive Statements Normal sinus rhythm Cannot rule out Anterior infarct , age undetermined Electronically Signed On 05-01-2024 16:10:58 PST by Gregor Pinto
--- NOTE | 2024-04-29 16:39 | DI.RAD.S_ITS ---
PROCEDURE: XR CHEST 1V INDICATIONS: short of breath TECHNIQUE: One view of the chest was acquired. COMPARISON: [facility], , XR CHEST 1V, 12/01/2023, 20:45. [facility], CR, XR CHEST 1V, 05/07/2023, 19:03. FINDINGS: Surgical changes and devices: None. Lungs and pleura: Lungs are clear. No pleural effusions or pneumothorax. Low lung volumes. Mediastinum: Mediastinal contours appear normal. Heart size is normal. Bones and chest wall: No suspicious bony lesions. Overlying soft tissues appear unremarkable. IMPRESSION: No acute cardiopulmonary abnormality is seen. Dictated by: Amilcar Chapman M.D. on 04/29/2024 at 17:25 Approved by: Amilcar Chapman M.D. on 04/29/2024 at 17:26
--- NOTE | 2024-04-29 16:42 | ED_ITS ---
HPI - General Adult General Chief complaint: Hypertension Stated complaint: States very high BP Time Seen by Provider: 04/29/24 16:27 Source: patient Mode of arrival: Ambulatory History of Present Illness HPI narrative: Patient is 48-year-old female history of asthma pulmonary embolisms on Eliquis nephrolithiasis presenting today with variety of symptoms. She was actually had her chiropractor sole practitioner who knows that her blood pressure was elevated she has been little short of breath but really feels like it is asthma flaring. He has been taking prednisone and albuterol it has been helping. No fever or chills. No abdominal pain she feels a little lightheaded at times. No nausea or vomiting. Reports that she is chronic lymphedema. He is also concerned should does she has drainage in her ear on the right side which typically means she has a infection she has hole in her tympanic membrane she says usually she gets ear drop. Blood pressure not elevated in the ED. Related Data Home Medications Medication Instructions Recorded Confirmed multivitamin 1 tab PO DAILY 08/21/19 02/01/24 ogpopkyy-tegzggojt-udduabdzj 3.5 4 drp EAR-RIGHT BID PRN Pain 05/08/23 02/01/24 mg-10,000 unit/mL-1 % ear (Scale Score 4-6) drops,susp nystatin 100,000 unit/gram topical 1 applictn topical TID PRN Rash 05/08/23 02/01/24 powder Previous Rx's Medication Instructions Recorded QUAD CANE #1 ea 05/08/18 GRAB BARS FOR SHOWER #3 ea 04/21/19 Disabled Parking Permit #1 ea 05/24/22 nebulizer #1 ea 03/14/23 propranolol 10 mg tablet 10 mg PO BID #180 tabs 05/25/23 albuterol sulfate 90 mcg/actuation 2 puff inhalation Q4-6H PRN 12/04/23 aerosol inhaler (Ventolin HFA) Shortness Of Breath #1 unit ipratropium 0.5 mg-albuterol 3 mg 3 ml inhalation Q6HP PRN wheezing/ 12/04/23 (2.5 mg base)/3 mL nebulization shortness of breath #90 mL soln loratadine 10 mg capsule 10 mg PO DAILY #90 caps 01/10/24 montelukast 10 mg tablet 10 mg PO DAILY #90 tabs 01/10/24 apixaban 5 mg tablet (Eliquis) 5 mg PO BID #180 tabs 01/29/24 fexofenadine 180 mg tablet 180 mg PO DAILY #30 tabs 02/01/24 (Kristine Allergy) prednisone 20 mg tablet 40 mg (2 x 20 mg) PO DAILY PRN 02/01/24 exacerbation #14 tabs omeprazole 20 mg capsule,delayed 20 mg PO DAILY #90 caps 03/07/24 release methocarbamol 500 mg tablet 500 mg PO TID PRN mm spasm #60 tabs 04/17/24 oxycodone-acetaminophen 5 mg-325 2 tab PO TID PRN pain #60 tabs 04/17/24 mg tablet cephalexin 500 mg capsule 500 mg PO BID 5 days #10 caps 04/29/24 ciprofloxacin 0.3 %-dexamethasone 4 drp EAR-RIGHT BID #7.5 mL 04/29/24 0.1 % ear drops,suspension Allergies Allergy/AdvReac Type Severity Reaction Status Date / Time yasmine Allergy Severe Anaphylaxis Verified 02/01/24 10:34 pumpkin Allergy Severe Anaphylaxis Verified 02/01/24 10:34 shellfish derived Allergy Intermediate Rash Verified 02/01/24 10:34 latex Allergy Rash Verified 02/01/24 10:34 oxycodone [OXYCODONE] AdvReac Intermediate Irritabilit Verified 02/01/24 10:34 y Patient History Medical History (Updated 04/29/24 @ 18:45 by Elizabet Bridges DO) Gout Right otitis media Acquired iron deficiency anemia due to decreased absorption IBS (irritable bowel syndrome) History of kidney stones Hx of migraine headaches Hx of chronic arthritis Acute cystitis Hepatomegaly Diarrhea Reflux esophagitis Osteoarthritis of knees, bilateral Knee pain, bilateral Lateral meniscus tear Medial meniscus tear Low back pain Asthma Restless legs RBC microcytosis Fibromyalgia Inflamed acrochordon Strain of right biceps muscle Tympanic membrane perforation, nontraumatic UTI (urinary tract infection) Adnexal mass Restrictive lung disease Moderate persistent asthma Wound infection Concentric left ventricular hypertrophy (~05/2017) Kidney stones Wound of right lower extremity Lymphedema Ovarian cyst (03/28/15) Pneumonia (2008) Hypertension Migraines Sleep apnea Hypertriglyceridemia Surgical History History of esophagogastroduodenoscopy (EGD) (~04/2015) History of History of laparoscopic appendectomy (03/28/15) History of ovarian cystectomy History of placement of ear tubes History of tonsillectomy Family History Father Gout Kidney stone Mother Atrial fibrillation Cancer Eczema Urinary tract bacterial infections Kidney stone Grandfather No problems noted. Grandmother No problems noted. Grandfather No problems noted. Grandmother No problems noted. Sister Eczema Son Dyskeratosis congenita Other Hyperlipidemia Hypertension Social History marital status: unmarried,single number of children: 2 household members: family Smoking Status: Former smoker Tobacco: How many years used: 17 second hand exposure: No alcohol intake: former caffeine: Yes Smoking Status: Former smoker alcohol intake frequency: other Exam Initial Vital Signs Initial Vital Signs: Vital Signs Temperature 98.0 F 04/29/24 16:12 Pulse Rate 89 04/29/24 16:12 Respiratory Rate 22 04/29/24 16:12 Blood Pressure 136/77 04/29/24 16:12 Pulse Oximetry 94 04/29/24 16:12 Oxygen Delivery Method Room Air 04/29/24 16:12 GENERAL: Alert 48-year-old female BMI 64 HEENT: Head atraumatic,EOMI, pupils reactive, face symmetric, [moist] mucous membranes EAR: Right ear there is some mild drainage no erythema I Do think I ses tympanic membrane whole left ear is within normal limit CARDIOVASCULAR: Regular rate and rhythm without murmurs, rubs or gallops. RESPIRATORY: Decreased breath sounds bilaterally O2 ABDOMEN: Soft, nontender. Normoactive bowel sounds all 4 quadrants. No guarding or rebound. EXTREMITIES: Normal range of motion, no clubbing or edema. Neurovascularly intact NEUROLOGICAL: Alert and oriented x4.Normal gait and speech. Cranial nerves II through XII grossly intact. SKIN: Warm, dry, no laceration, no petechiae, no rashes or lesions. Course Orders Ordered: ED Orders 04/29/24 16:39 Chest [XR chest 1V] Stat 04/29/24 16:53 CBC Auto Diff [Complete Blood Count AUTO DIFF] Stat CMP [Comprehensive Metabolic Panel] Stat HCG Quantitative /Beta subunit Stat 04/29/24 18:17 UA Complete [Urinalysis and Microscopic] Stat Discontinued Medications Albuterol (Albuterol 2.5 Mg/3 Ml Neb (Adult)) 2.5 mg INH NOW ONE Stop: 04/29/24 16:40 Last Admin: 04/29/24 16:46 Dose: 2.5 mg Documented By: Vital Signs Vital signs: Vital Signs - 8 hr 04/29/24 16:12 Temperature 98.0 F Pulse Rate 89 Respiratory Rate 22 Blood Pressure 136/77 Pulse Oximetry 94 Oxygen Delivery Method Room Air Medical Decision Making Lab Data 04/29/24 16:53 04/29/24 16:53 Labs: Lab Results 04/29/24 04/29/24 Range/Units 16:53 18:17 WBC 8.7 (4.5-11.0) X10^3/uL RBC 5.13 (4.0-5.2) X10^6/uL Hgb 14.2 (12.0-16.0) g/dL Hct 43.0 (36-46) % MCV 83.9 (80-100) fL MCH 27.7 (26-34) PG MCHC 33.0 (30-36) % RDW 15.4 H (11.6-14.8) % Plt Count 250 (150-400) X10^3/uL Neut % (Auto) 75.6 H (50-75) % Lymph % (Auto) 17.6 L (25-40) % [place] % (Auto) 5.3 (3-14) % Eos % (Auto) 0.5 L (2-4) % Baso % (Auto) 1.0 (0-2) % Neut # (Auto) 6600 (7888-4666) /uL Lymph # (Auto) 1500 (7483-3256) /uL [place] # (Auto) 500 (0-900) /uL Eos # (Auto) 0 (0-450) /uL Baso # (Auto) 100 (0-100) /uL Sodium 137 (137-145) mmol/L Potassium 4.3 (3.4-5.1) mmol/L Chloride 103 (98-107) mmol/L Carbon Dioxide 27 (22-32) mmol/L BUN 14 (7-17) mg/dL Creatinine 0.58 (0.52-1.04) mg/dL Estimated GFR > 60 (>60) mL/min BUN/Creatinine Ratio 24.1 H (6-22) Glucose 148 H (70-100) mg/dL Calcium 10.0 (8.4-10.2) mg/dL Total Bilirubin 0.6 (0.2-1.3) mg/dL AST 44 H (14-36) IU/L ALT 32 (<35) IU/L Alkaline Phosphatase 65 (38-126) U/L Total Protein 7.5 (6.3-8.2) g/dL Albumin 4.0 (3.5-5.0) g/dL Globulin 3.5 (1.7-4.1) g/dL Albumin/Globulin Ratio 1.1 (1.0-2.8) HCG, Quant < 2.39 mIU/mL Urine Color [place] Urine Appearance Cloudy Urine pH 6.5 (4.5-8.0) Ur Specific [place] 1.010 (1.000-1.035) Urine Protein Trace H (Negative) Urine Glucose (UA) Negative (Negative) g/dL Urine Ketones Trace H (NEGATIVE) Urine Occult Blood 1+ H (Negative) Urine Nitrate Positive H (Negative) Urine Bilirubin Negative (NEGATIVE) Urine Urobilinogen 1.0 (0.2) E.U./dL Ur Leukocyte Esterase 1+ H (NEGATIVE) Point of Care Testing Test Results Negative Urine Dip Bedside Urine Glucose Negative Bedside Urine Bilirubin - Negative Bedside Urine Ketone - Negative Urine Specific [place] 1.010 Bedside Urine Occult Blood + Bedside Urine pH 7.0 Bedside Urine Protein - Negative Bedside Urine Urobilinogen - Negative Bedside Urine Nitrite + Positive Bedside Urine Leukocytes ++ 125 Esterase Point of care testing: Point of Care Testing Test Results Negative Urine Dip Bedside Urine Glucose Negative Bedside Urine Bilirubin - Negative Bedside Urine Ketone - Negative Urine Specific [place] 1.010 Bedside Urine Occult Blood + Bedside Urine pH 7.0 Bedside Urine Protein - Negative Bedside Urine Urobilinogen - Negative Bedside Urine Nitrite + Positive Bedside Urine Leukocytes ++ 125 Esterase ECG Data Attestation: I personally reviewed and interpreted this ECG as follows: Prior ECG tracings: available for review Interpretation: Normal sinus rhythm rate 83 AR interval 182 QRS 84 QTC 430 no S-wave no T-wave no ST depression no T-wave inversions similar to previous EKGs [facility] Narrative Medical decision making narrative: Patient 48-year-old female presenting to vague symptoms. She reports she was not feeling well she has been having an asthma increase she has been on some prednisone taking albuterol nebs at home she says they do help her. She just feels generally weak. She has no leukocytosis blood work is overall reassuring. Offered a viral panel however she declined. X-ray does not show any evidence pneumonia. She has a mild right otitis externa. She did receive an albuterol nebulizer in his feeling a little bit better. At this time she is taking Eliquis I have a low suspicion for PE EKGs overall reassuring she reports no significant chest pain or pressure Discharge Plan Departure Patient Disposition: Home Clinical Impression: Otitis externa, UTI (urinary tract infection) Instructions: Urinary Tract Infection, DI for Otitis Externa Activity Restrictions/Additional Instructions: *You have been diagnosed with UTI *What to do: At this time I do think that you have a bladder infection which might be causing your weakness. Keep treat taking prednisone and using nebs for your asthma *Continue to take medications as directed Keflex 500 mg twice a day for 5 days Ciprodex 4 drops each ear twice a day *Follow up with your primary care provider in 2-3 days or call [phone] *Return to ER if you should have increasing chest pain pressure shortness of breath weakness or any new, worsening or concerning symptoms Prescriptions: New ciprofloxacin-dexamethasone 0.3-0.1 % drops,suspension 4 drp EAR-RIGHT BID Qty: 7.5 0RF cephalexin 500 mg capsule 500 mg PO BID 5 Days Qty: 10 0RF No Action (DME) QUAD CANE Qty: 1 0RF Dose Instruction: As directed Rx Instructions: Use to assist with walking (DME) Disabled Parking Permit See Rx Instructions .Route .MEDSUPPLY Qty: 1 0RF Rx Instructions: I find this patient to be medically disabled and qualified for disabled parking as indicated, and signed, on the accompanying application loratadine 10 mg capsule 10 mg PO DAILY Qty: 90 1RF montelukast 10 mg tablet 10 mg PO DAILY Qty: 90 1RF Eliquis 5 mg tablet 5 mg PO BID Qty: 180 2RF Rx Instructions: continue taking twice a day 05/25/23 omeprazole 20 mg capsule,delayed release(DR/EC) 20 mg PO DAILY Qty: 90 1RF methocarbamol 500 mg tablet 500 mg PO TID PRN (Reason: mm spasm) Qty: 60 3RF oxycodone-acetaminophen 5-325 mg tablet 2 tab PO TID PRN (Reason: pain) Qty: 60 0RF (DME) GRAB BARS FOR SHOWER Qty: 3 0RF Rx Instructions: 3 Grab bars needed for shower to prevent falls propranolol 10 mg tablet 10 mg PO BID Qty: 180 3RF Rx Instructions: PT TAKES IT NEEDED multivitamin Tablet 1 tab PO DAILY (DME) nebulizer See Rx Instructions .Route .MEDSUPPLY Qty: 1 0RF Rx Instructions: Nebulizer and equipment #1, 0 refills Albuterol 2.5 mg/3 mL 1 vial 2 times daily as needed # 60, 11 refills fexofenadine [Kristine Allergy] 180 mg tablet 180 mg PO DAILY Qty: 30 1RF prednisone 20 mg tablet 40 mg PO DAILY PRN (Reason: exacerbation) Qty: 14 0RF Rx Instructions: take two tabs once a day for a week as needed for asthma exacerbation nystatin 100,000 unit/gram powder 1 applictn TOP TID PRN (Reason: Rash) Rx Instructions: Apply up to 3 times daily prn to underarms and in the a.m. to leg creases urujvnim-mjkevyrst-TG 3.5-10,000-1 mg/mL-unit/mL-% drops,suspension 4 drp EAR-RIGHT BID PRN (Reason: Pain (Scale Score 4-6)) ipratropium-albuterol 0.5 mg-3 mg(2.5 mg base)/3 mL solution for nebulization 3 ml inhalation Q6HP PRN (Reason: wheezing/ shortness of breath) Qty: 90 1RF albuterol sulfate [Ventolin HFA] 90 mcg/actuation HFA aerosol inhaler 2 puff INHALATION Q4-6H PRN (Reason: Shortness Of Breath) Qty: 1 3RF Referrals: Bandar Rees DO [Primary Care Provider] - Stand Alone Forms: Patient Portal/API/Survey
[2024-04-29] MEDS: ALBUTEROL 2.5 MG/3 ML NEB (ADULT) INH (16:46)
[2024-04-29 17:01] LABS: Add Manual Diff / Slide Review NO; Basophils Absolute Auto 100 /uL (0-100); Eosinophils Absolute Auto 0 /uL (0-450); Eosinophils Percent Auto 0.5 % (2-4); Hemoglobin 14.2 g/dL (12.0-16.0); Lymphocytes Absolute Auto 1500 /uL (1100-4500); Lymphocytes Percent Auto 17.6 % (25-40); Mean Corpuscular Hemoglobin 27.7 PG (26-34); Mean Corpuscular Volume 83.9 fL (80-100); Monocytes Absolute Auto 500 /uL (0-900); Monocytes Percent Auto 5.3 % (3-14); Neutrophils Absolute Auto 6600 /uL (1500-7000); Neutrophils Percent Auto 75.6 % (50-75); Platelet Count 250 X10^3/uL (150-400); Red Blood Cell Count 5.13 X10^6/uL (4.0-5.2); Red Cell Distribution Width 15.4 % (11.6-14.8); White Blood Cell Count 8.7 X10^3/uL (4.5-11.0)
[2024-04-29 17:19] LABS: Alanine Aminotransferase 32 IU/L (<35); Albumin Globulin Ratio 1.1 (1.0-2.8); Alkaline Phosphatase 65 U/L (38-126); Aspartate Aminotransferase 44 IU/L (14-36); BUN Creatinine Ratio 24.1 (6-22); Bilirubin Total 0.6 mg/dL (0.2-1.3); Blood Urea Nitrogen 14 mg/dL (7-17); Carbon Dioxide 27 mmol/L (22-32); Chloride 103 mmol/L (98-107); Estimated Glomerular Filt Rate > 60 mL/min (>60); Globulin 3.5 g/dL (1.7-4.1); Glucose 148 mg/dL (70-100); HEMOLYSIS < 15 (0-50); Potassium 4.3 mmol/L (3.4-5.1); Sodium 137 mmol/L (137-145); Total Protein 7.5 g/dL (6.3-8.2)
[2024-04-29 18:25] LABS: HCG Quantitative /Beta subunit < 2.39 mIU/mL
[2024-04-29 18:30] LABS: Appearance Urine UA CLOUDY; Bilirubin Urine UA NEGATIVE (NEGATIVE); Color Urine UA ORANGE; Glucose Urine UA NEGATIVE (Negative); Ketones Urine UA TRACE (NEGATIVE); Leukocyte Esterase Urine UA 1+ (NEGATIVE); Nitrite Urine UA POSITIVE (Negative); Occult Blood Urine UA 1+ (Negative); Protein Urine UA TRACE (Negative)
[2024-04-29 18:31] LABS: pH Urine UA 6.5 (4.5-8.0)
[2024-04-29 18:42] LABS: Bacteria Urine Many (>30); Culture Indicated Urine Specimen Cultured; RBC Urine 1-5/HPF (0-5/HPF); Squamous Epithelial Cell Urine 1-5 /HPF (0-5/HPF); Urine Volume 10mL (spun); WBC Urine 30-100/HPF (0-5/HPF)
[2024-04-29] MEDS: cephALEXin 250 MG CAP PREPACK 1 BOTTLE MISC (18:54)
[2024-04-29 19:00] VITALS: BP 125/84; PULSE 85; RESP 15; TEMP 36.9; O2SAT 98
== END 2024-04-29 19:02 | disposition home or self-care (01) ==
PROVIDERS: Emergency Provider Emergency Medicine; PCP Family Medicine
DX: H60.91 Unspecified otitis externa, right ear (principal); N39.0 Urinary tract infection, site not specified; I10 Essential (primary) hypertension; Z87.891 Personal history of nicotine dependence; Z86.711 Personal history of pulmonary embolism; Z79.01 Long term (current) use of anticoagulants
CPT/HCPCS: 36415; 71045; 80053; 81001; 81003; 81025; 84702; 85025; 87077; 87086; 87186; 93005; 99283; 99284; J7613

== ENCOUNTER → 2024-05-28 13:35 | Outpatient (CLI) | payer MEDICARE, MEDICAID, SELFPAY ==
[2023-12-10 11:54] VITALS: BMI 64.5
== END ==
LOC: CAR 13:35
PROVIDERS: PCP Family Medicine; Referring Provider Physician Assistant; Visit Provider Physician Assistant
DX: I49.9 Cardiac arrhythmia, unspecified (principal); R06.02 Shortness of breath
CPT/HCPCS: 93246

== ENCOUNTER 2024-05-30 14:34 | Emergency (ER) | payer MEDICARE, MEDICAID, SELFPAY ==
[2023-12-10 11:54] VITALS: BMI 64.5
[2024-05-30] VITALS (12 sets, daily range): BP systolic 120–176; BP diastolic 55–85; PULSE 64–123; RESP 12–29; TEMP 36.6; O2SAT 90–95; BMI 65.0
--- NOTE | 2024-05-30 14:48 | DI.RAD.S_ITS ---
PROCEDURE: XR CHEST 1V INDICATIONS: Shortness of breath TECHNIQUE: One view of the chest was acquired. COMPARISON: [facility], , XR CHEST 1V, 04/29/2024, 16:53. [facility], CR, XR CHEST 1V, 12/01/2023, 20:45. FINDINGS: Surgical changes and devices: None. Lungs and pleura: Lungs are difficult to accurately assess due to very large body habitus and prominently reduced inspiratory volume. No definite pneumonia or CHF. No pleural effusions or pneumothorax. Mediastinum: Mediastinal contours appear normal. Heart size is normal. Bones and chest wall: No suspicious bony lesions. Overlying soft tissues appear unremarkable. IMPRESSION: Prominently reduced inspiratory volume and large body habitus, accurate assessment is very limited. No definite mass or pneumonia found, heart size likely is within normal limits when reduced inspiration is taken into account. Dictated by: Saud Grimm M.D. on 05/30/2024 at 15:20 Approved by: Saud Grimm M.D. on 05/30/2024 at 15:21
--- NOTE | 2024-05-30 16:43 | EKG_ITS ---
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
[2024-05-30] MEDS: ALBUTEROL/IPRATROPIUM 3 ML AMPUL 6 ML INH (18:02)
[2024-05-30 18:29] LABS: INR 1.4 (0.9-1.3); Prothrombin Time 15.3 SECONDS (9.4-12.5)
[2024-05-30 18:38] LABS: Lactate (Lactic Acid) 1.2 mmol/L (0.7-2.1)
[2024-05-30 18:42] LABS: Add Manual Diff / Slide Review NO; Basophils Absolute Auto 100 /uL (0-100); Basophils Percent Auto 1.4 % (0-2); Eosinophils Absolute Auto 0 /uL (0-450); Eosinophils Percent Auto 0.3 % (2-4); Hematocrit 41.9 % (36-46); Lymphocytes Absolute Auto 1900 /uL (1100-4500); Lymphocytes Percent Auto 18.8 % (25-40); Mean Corpuscular HGB Conc 33.4 % (30-36); Mean Corpuscular Hemoglobin 28.4 PG (26-34); Monocytes Absolute Auto 600 /uL (0-900); Monocytes Percent Auto 5.7 % (3-14); Neutrophils Absolute Auto 7400 /uL (1500-7000); Neutrophils Percent Auto 73.8 % (50-75); Platelet Count 262 X10^3/uL (150-400); Red Blood Cell Count 4.92 X10^6/uL (4.0-5.2); Red Cell Distribution Width 15.6 % (11.6-14.8); White Blood Cell Count 10.1 X10^3/uL (4.5-11.0)
[2024-05-30 18:55] LABS: Alanine Aminotransferase 37 IU/L (<35); Albumin Globulin Ratio 1.6 (1.0-2.8); Alkaline Phosphatase 49 U/L (38-126); Aspartate Aminotransferase 51 IU/L (14-36); Bilirubin Total 0.5 mg/dL (0.2-1.3); Blood Urea Nitrogen 14 mg/dL (7-17); Calcium 9.4 mg/dL (8.4-10.2); Carbon Dioxide 25 mmol/L (22-32); Chloride 105 mmol/L (98-107); Estimated Glomerular Filt Rate > 60 mL/min (>60); Globulin 2.5 g/dL (1.7-4.1); Glucose 108 mg/dL (70-100); HEMOLYSIS 20 (0-50); Potassium 4.6 mmol/L (3.4-5.1); Sodium 138 mmol/L (137-145); Total Protein 6.5 g/dL (6.3-8.2)
[2024-05-30 19:08] LABS: NT-proBNP (BNP-Adult 18+) 203 pg/mL (<125); Troponin I < 0.012 ng/mL (0.01-0.034)
--- NOTE | 2024-05-30 19:58 | ED.SOB ---
HPI - SOB/Dyspnea General Chief Complaint: Shortness of Breath/Dyspnea Stated Complaint: SOB, cough Time Seen by Provider: 05/30/24 18:00 History of Present Illness HPI Narrative: 48-year-old female with history of asthma, history of PE on Eliquis presents by private vehicle for evaluation of shortness of breath. Patient states that for the last 3 weeks she has had cough, congestion, shortness of breath. She has been followed by her primary care doctor who has prescribed her steroids, but she feels like her symptoms have not improved. Has been exposed to flu in the past by her family members. Related Data Home Medications Medication Instructions Recorded Confirmed multivitamin 1 tab PO DAILY 08/21/19 02/01/24 qmfeierp-riurrnmos-mxqdruhwa 3.5 4 drp EAR-RIGHT BID PRN Pain 05/08/23 02/01/24 mg-10,000 unit/mL-1 % ear (Scale Score 4-6) drops,susp nystatin 100,000 unit/gram topical 1 applictn topical TID PRN Rash 05/08/23 02/01/24 powder Previous Rx's Medication Instructions Recorded QUAD CANE #1 ea 05/08/18 GRAB BARS FOR SHOWER #3 ea 04/21/19 Disabled Parking Permit #1 ea 05/24/22 nebulizer #1 ea 03/14/23 propranolol 10 mg tablet 10 mg PO BID #180 tabs 05/25/23 albuterol sulfate 90 mcg/actuation 2 puff inhalation Q4-6H PRN 12/04/23 aerosol inhaler (Ventolin HFA) Shortness Of Breath #1 unit ipratropium 0.5 mg-albuterol 3 mg 3 ml inhalation Q6HP PRN wheezing/ 12/04/23 (2.5 mg base)/3 mL nebulization shortness of breath #90 mL soln loratadine 10 mg capsule 10 mg PO DAILY #90 caps 01/10/24 montelukast 10 mg tablet 10 mg PO DAILY #90 tabs 01/10/24 apixaban 5 mg tablet (Eliquis) 5 mg PO BID #180 tabs 01/29/24 fexofenadine 180 mg tablet 180 mg PO DAILY #30 tabs 02/01/24 (Kristine Allergy) omeprazole 20 mg capsule,delayed 20 mg PO DAILY #90 caps 03/07/24 release methocarbamol 500 mg tablet 500 mg PO TID PRN mm spasm #60 tabs 04/17/24 ciprofloxacin 0.3 %-dexamethasone 4 drp EAR-RIGHT BID #7.5 mL 04/29/24 0.1 % ear drops,suspension oxycodone-acetaminophen 5 mg-325 2 tab PO TID PRN pain #60 tabs 05/12/24 mg tablet prednisone 20 mg tablet 40 mg (2 x 20 mg) PO DAILY PRN 05/13/24 exacerbation #14 tabs albuterol sulfate 90 mcg/actuation 1 inh inhalation QID PRN shortness 05/30/24 aerosol inhaler of breath or wheezing #8.5 grams prednisone 20 mg tablet 40 mg (2 x 20 mg) PO DAILY #10 tabs 05/30/24 Allergies Allergy/AdvReac Type Severity Reaction Status Date / Time yasmine Allergy Severe Anaphylaxis Verified 02/01/24 10:34 pumpkin Allergy Severe Anaphylaxis Verified 02/01/24 10:34 shellfish derived Allergy Intermediate Rash Verified 02/01/24 10:34 latex Allergy Rash Verified 02/01/24 10:34 oxycodone [OXYCODONE] AdvReac Intermediate Irritabilit Verified 02/01/24 10:34 y Patient History Medical History Chronic urinary tract infection Hematuria Gout Right otitis media Acquired iron deficiency anemia due to decreased absorption IBS (irritable bowel syndrome) History of kidney stones Hx of migraine headaches Hx of chronic arthritis Acute cystitis Hepatomegaly Diarrhea Reflux esophagitis Osteoarthritis of knees, bilateral Knee pain, bilateral Lateral meniscus tear Medial meniscus tear Low back pain Asthma Restless legs RBC microcytosis Fibromyalgia Inflamed acrochordon Strain of right biceps muscle Tympanic membrane perforation, nontraumatic UTI (urinary tract infection) Adnexal mass Restrictive lung disease Moderate persistent asthma Wound infection Concentric left ventricular hypertrophy (~05/2017) Kidney stones Wound of right lower extremity Lymphedema Ovarian cyst (03/28/15) Pneumonia (2008) Hypertension Migraines Sleep apnea Hypertriglyceridemia Surgical History History of esophagogastroduodenoscopy (EGD) (~04/2015) History of History of laparoscopic appendectomy (03/28/15) History of ovarian cystectomy History of placement of ear tubes History of tonsillectomy Family History Father Gout Kidney stone Mother Atrial fibrillation Cancer Eczema Urinary tract bacterial infections Kidney stone Grandfather No problems noted. Grandmother No problems noted. Grandfather No problems noted. Grandmother No problems noted. Sister Eczema Son Dyskeratosis congenita Other Hyperlipidemia Hypertension Social History marital status: unmarried,single number of children: 2 household members: family Smoking Status: Former smoker Tobacco: How many years used: 17 second hand exposure: No alcohol intake: former caffeine: Yes Smoking Status: Former smoker alcohol intake frequency: other Exam Initial Vital Signs Initial Vital Signs: Vital Signs Temperature 97.8 F 05/30/24 14:42 Pulse Rate 86 05/30/24 14:42 Respiratory Rate 22 05/30/24 14:42 Blood Pressure 136/61 05/30/24 14:42 Pulse Oximetry 95 05/30/24 14:42 Oxygen Delivery Method Room Air 05/30/24 14:42 Const: Awake, alert, appears chronically unwell, older than stated age, morbidly obese Cardiac: regular rate, regular rhythm RESP: unlabored at rest, labored with exertion, clear bilaterally, no wheezing Skin: Warm, Dry, intact, no rashes Neuro: AO x3, CN II-XII grossly intact, moves all extremities Course Orders Ordered: Discontinued Medications Albuterol/Ipratropium (Albuterol/Ipratropium 3 Ml Ampul) 6 ml INH NOW ONE Stop: 05/30/24 17:58 Last Admin: 05/30/24 18:02 Dose: 6 ml Documented By: BARBRA Vital Signs Vital signs: Vital Signs - 8 hr 05/30/24 14:42 05/30/24 16:42 05/30/24 17:00 Temperature 97.8 F Pulse Rate 86 71 67 Respiratory Rate 22 22 12 Blood Pressure 136/61 Pulse Oximetry 95 95 95 Oxygen Delivery Method Room Air 05/30/24 17:00 05/30/24 17:30 05/30/24 17:30 Temperature Pulse Rate 64 Respiratory Rate 18 Blood Pressure 120/56 L 128/62 Pulse Oximetry Oxygen Delivery Method 05/30/24 18:00 05/30/24 18:00 05/30/24 18:05 Temperature Pulse Rate 67 68 Respiratory Rate 14 16 Blood Pressure 132/64 Pulse Oximetry 93 93 Oxygen Delivery Method Room Air Room Air 05/30/24 18:30 05/30/24 18:30 05/30/24 19:00 Temperature Pulse Rate 74 84 Respiratory Rate 29 H 20 Blood Pressure 143/67 H Pulse Oximetry 94 90 L Oxygen Delivery Method 05/30/24 19:01 05/30/24 19:01 Temperature Pulse Rate 66 Respiratory Rate 23 Blood Pressure 176/72 H Pulse Oximetry 95 Oxygen Delivery Method MDM - SOB/Dyspnea Lab Data 05/30/24 17:55 05/30/24 17:55 Labs: Lab Results 05/30/24 Range/Units 17:55 WBC 10.1 (4.5-11.0) X10^3/uL RBC 4.92 (4.0-5.2) X10^6/uL Hgb 14.0 (12.0-16.0) g/dL Hct 41.9 (36-46) % MCV 85.0 (80-100) fL MCH 28.4 (26-34) PG MCHC 33.4 (30-36) % RDW 15.6 H (11.6-14.8) % Plt Count 262 (150-400) X10^3/uL Neut % (Auto) 73.8 (50-75) % Lymph % (Auto) 18.8 L (25-40) % Avery % (Auto) 5.7 (3-14) % Eos % (Auto) 0.3 L (2-4) % Baso % (Auto) 1.4 (0-2) % Neut # (Auto) 7400 H (5614-2228) /uL Lymph # (Auto) 1900 (6157-6596) /uL Avery # (Auto) 600 (0-900) /uL Eos # (Auto) 0 (0-450) /uL Baso # (Auto) 100 (0-100) /uL PT 15.3 H (9.4-12.5) SECONDS INR 1.4 H (0.9-1.3) Sodium 138 (137-145) mmol/L Potassium 4.6 (3.4-5.1) mmol/L Chloride 105 (98-107) mmol/L Carbon Dioxide 25 (22-32) mmol/L BUN 14 (7-17) mg/dL Creatinine 0.70 (0.52-1.04) mg/dL Estimated GFR > 60 (>60) mL/min BUN/Creatinine Ratio 20.0 (6-22) Glucose 108 H (70-100) mg/dL Lactate 1.2 (0.7-2.1) mmol/L Calcium 9.4 (8.4-10.2) mg/dL Total Bilirubin 0.5 (0.2-1.3) mg/dL AST 51 H (14-36) IU/L ALT 37 H (<35) IU/L Alkaline Phosphatase 49 (38-126) U/L Troponin I < 0.012 (0.01-0.034) ng/mL NT-Pro-B Natriuret Pep 203 H (<125) pg/mL Total Protein 6.5 (6.3-8.2) g/dL Albumin 4.0 (3.5-5.0) g/dL Globulin 2.5 (1.7-4.1) g/dL Albumin/Globulin Ratio 1.6 (1.0-2.8) Imaging Data Chest x-ray: Radiologist's Impression: [address] [address] XRay Report Signed Patient: Cady Castillo MR#: [id number] : 1975 Acct:[id number] Age/Sex: 48 / F Date of Service: 05/30/24 Loc: ED Accession Number: [id number] Procedure: XR chest 1V Ordering Provider: Ayaz Peña D.O. PROCEDURE: XR CHEST 1V INDICATIONS: Shortness of breath TECHNIQUE: One view of the chest was acquired. COMPARISON: [facility], CR, XR CHEST 1V, 04/29/2024, 16:53. [facility], CR, XR CHEST 1V, 12/01/2023, 20:45. FINDINGS: Surgical changes and devices: None. Lungs and pleura: Lungs are difficult to accurately assess due to very large body habitus and prominently reduced inspiratory volume. No definite pneumonia or CHF. No pleural effusions or pneumothorax. Mediastinum: Mediastinal contours appear normal. Heart size is normal. Bones and chest wall: No suspicious bony lesions. Overlying soft tissues appear unremarkable. IMPRESSION: Prominently reduced inspiratory volume and large body habitus, accurate assessment is very limited. No definite mass or pneumonia found, heart size likely is within normal limits when reduced inspiration is taken into account. Dictated by: Saud Grimm M.D. on 05/30/2024 at 15:20 Approved by: Saud Grimm M.D. on 05/30/2024 at 15:21 [facility] Narrative Medical decision making narrative: Patient with chronic pulmonary disease presenting for 3 weeks of worsening symptoms. Patient had already received a nebulizer treatment prior to my exam and on pulmonary exam there is no residual wheezing. Patient O2 stable on room air. Patient on previous pulmonary consult note reports at least some component of obesity hypoventilation syndrome, which I suspect may be contributing to patient's presentation. She is saturating well and conversational on room air. Labs show WBC count 10.1, hemoglobin 14.0, platelet count 262, sodium 138, potassium 4.6, chloride 105, creatinine 0.7, troponin undetectable, BNP 203. Chest x-ray shows no obvious pneumonia, limited due to habitus and low volume inspiration. Patient most likely has component of bronchitis as well since symptoms began with nonspecific upper respiratory symptoms. Patient counseled on lab and imaging findings at bedside. No indication for admission at this time. Patient requested refill of prednisone and albuterol, which was sent to the patient's pharmacy of choice. ED return precautions discussed and PCP follow up advised. Discharge Plan Departure Patient Disposition: Home Clinical Impression: Bronchitis Instructions: DI for Acute Bronchitis Activity Restrictions/Additional Instructions: Your chest x-ray did not show any obvious pneumonia. Your laboratory work does not indicate a bacterial infection. Continue to take your nebulizers and steroids. Continue to follow up with your primary care doctor. Prescriptions: New albuterol sulfate 90 mcg/actuation HFA aerosol inhaler 1 inh inhalation QID PRN (Reason: shortness of breath or wheezing) Qty: 8.5 0RF prednisone 20 mg tablet 40 mg PO DAILY Qty: 10 0RF No Action (DME) QUAD CANE Qty: 1 0RF Dose Instruction: As directed Rx Instructions: Use to assist with walking (DME) Disabled Parking Permit See Rx Instructions .Route .MEDSUPPLY Qty: 1 0RF Rx Instructions: I find this patient to be medically disabled and qualified for disabled parking as indicated, and signed, on the accompanying application loratadine 10 mg capsule 10 mg PO DAILY Qty: 90 1RF montelukast 10 mg tablet 10 mg PO DAILY Qty: 90 1RF Eliquis 5 mg tablet 5 mg PO BID Qty: 180 2RF Rx Instructions: continue taking twice a day 05/25/23 omeprazole 20 mg capsule,delayed release(DR/EC) 20 mg PO DAILY Qty: 90 1RF methocarbamol 500 mg tablet 500 mg PO TID PRN (Reason: mm spasm) Qty: 60 3RF oxycodone-acetaminophen 5-325 mg tablet 2 tab PO TID PRN (Reason: pain) Qty: 60 0RF prednisone 20 mg tablet 40 mg PO DAILY PRN (Reason: exacerbation) Qty: 14 0RF Rx Instructions: take two tabs once a day for a week as needed for asthma exacerbation (DME) GRAB BARS FOR SHOWER Qty: 3 0RF Rx Instructions: 3 Grab bars needed for shower to prevent falls propranolol 10 mg tablet 10 mg PO BID Qty: 180 3RF Rx Instructions: PT TAKES IT NEEDED multivitamin Tablet 1 tab PO DAILY (DME) nebulizer See Rx Instructions .Route .MEDSUPPLY Qty: 1 0RF Rx Instructions: Nebulizer and equipment #1, 0 refills Albuterol 2.5 mg/3 mL 1 vial 2 times daily as needed # 60, 11 refills fexofenadine [Kristine Allergy] 180 mg tablet 180 mg PO DAILY Qty: 30 1RF nystatin 100,000 unit/gram powder 1 applictn TOP TID PRN (Reason: Rash) Rx Instructions: Apply up to 3 times daily prn to underarms and in the a.m. to leg creases cnumqeox-elwmlpooz-EJ 3.5-10,000-1 mg/mL-unit/mL-% drops,suspension 4 drp EAR-RIGHT BID PRN (Reason: Pain (Scale Score 4-6)) ipratropium-albuterol 0.5 mg-3 mg(2.5 mg base)/3 mL solution for nebulization 3 ml inhalation Q6HP PRN (Reason: wheezing/ shortness of breath) Qty: 90 1RF albuterol sulfate [Ventolin HFA] 90 mcg/actuation HFA aerosol inhaler 2 puff INHALATION Q4-6H PRN (Reason: Shortness Of Breath) Qty: 1 3RF ciprofloxacin-dexamethasone 0.3-0.1 % drops,suspension 4 drp EAR-RIGHT BID Qty: 7.5 0RF Referrals: Bandar Rees DO [Primary Care Provider] - Stand Alone Forms: Patient Portal/API/Survey
== END 2024-05-30 20:25 | disposition home or self-care (01) ==
PROVIDERS: Student in an Organized Health Care Education/Training Program; Emergency Provider Emergency Medicine; PCP Family Medicine
DX: J40 Bronchitis, not specified as acute or chronic (principal); J98.4 Other disorders of lung; E66.9 Obesity, unspecified; Z68.44 Body mass index [BMI] 60.0-69.9, adult; Z86.711 Personal history of pulmonary embolism; Z79.01 Long term (current) use of anticoagulants; Z87.891 Personal history of nicotine dependence
CPT/HCPCS: 36415; 71045; 80053; 83605; 83880; 84484; 85025; 85610; 93005; 94640; 99284

== ENCOUNTER → 2024-09-02 12:10 | Outpatient (CLI) | payer MEDICARE, MEDICAID, SELFPAY ==
[2023-12-10 11:54] VITALS: BMI 64.5
[2024-09-02 13:15] LABS: Add Manual Diff / Slide Review NO; Basophils Absolute Auto 100 /uL (0-100); Basophils Percent Auto 1.1 % (0-2); Eosinophils Absolute Auto 100 /uL (0-450); Eosinophils Percent Auto 1.4 % (2-4); Hematocrit 41.2 % (36-46); Lymphocytes Absolute Auto 2100 /uL (1100-4500); Lymphocytes Percent Auto 28.1 % (25-40); Mean Corpuscular HGB Conc 33.9 % (30-36); Mean Corpuscular Hemoglobin 28.3 PG (26-34); Mean Corpuscular Volume 83.4 fL (80-100); Monocytes Absolute Auto 500 /uL (0-900); Monocytes Percent Auto 7.2 % (3-14); Neutrophils Absolute Auto 4700 /uL (1500-7000); Neutrophils Percent Auto 62.2 % (50-75); Platelet Count 221 X10^3/uL (150-400); Red Blood Cell Count 4.94 X10^6/uL (4.0-5.2); Red Cell Distribution Width 14.3 % (11.6-14.8); White Blood Cell Count 7.6 X10^3/uL (4.5-11.0)
[2024-09-02 13:17] LABS: Hemoglobin A1C% w Est Avg Glu 5.6 % (4.0-6.0)
[2024-09-02 13:31] LABS: HEMOLYSIS < 15 (0-50); Iron 346 ug/dL (37-170)
[2024-09-02 13:42] LABS: Bilirubin Urine UA NEGATIVE (NEGATIVE); Color Urine UA YELLOW; Glucose Urine UA NEGATIVE (Negative); Ketones Urine UA NEGATIVE (NEGATIVE); Leukocyte Esterase Urine UA 2+ (NEGATIVE); Nitrite Urine UA POSITIVE (Negative); Occult Blood Urine UA TRACE-INTACT (Negative); Protein Urine UA TRACE (Negative); Specific Gravity Urine UA 1.025 (1.000-1.035); Total Iron Binding Capacity 355 ug/dL (265-497); Transferrin 298 mg/dL (206-381); Urobilinogen Urine UA 0.2 E.U./dL (0.2)
[2024-09-02 13:43] LABS: Alanine Aminotransferase 30 IU/L (<35); Albumin 4.3 g/dL (3.5-5.0); Albumin Globulin Ratio 1.8 (1.0-2.8); Alkaline Phosphatase 58 U/L (38-126); Aspartate Aminotransferase 37 IU/L (14-36); BUN Creatinine Ratio 20.7 (6-22); Bilirubin Total 0.6 mg/dL (0.2-1.3); Blood Urea Nitrogen 12 mg/dL (7-17); Calcium 9.9 mg/dL (8.4-10.2); Carbon Dioxide 22 mmol/L (22-32); Chloride 104 mmol/L (98-107); Estimated Glomerular Filt Rate > 60 mL/min (>60); Globulin 2.4 g/dL (1.7-4.1); Glucose 127 mg/dL (70-99); HEMOLYSIS < 15 (0-50); Potassium 4.5 mmol/L (3.4-5.1); Sodium 138 mmol/L (137-145); Total Protein 6.7 g/dL (6.3-8.2)
[2024-09-02 13:45] LABS: Appearance Urine UA CLOUDY; Percent Iron Saturation 97 % (15-50); pH Urine UA 5.5 (4.5-8.0)
[2024-09-02 13:48] LABS: Urine Volume 10mL (spun)
[2024-09-02 13:49] LABS: RBC Urine 0-1/HPF (0-5/HPF); WBC Urine >100/HPF (0-5/HPF)
[2024-09-02 13:50] LABS: Bacteria Urine Many (>30); Culture Indicated Urine Specimen Cultured; Squamous Epithelial Cell Urine 1-5 /HPF (0-5/HPF)
[2024-09-02 14:22] LABS: Vitamin B12 289 pg/mL (239-931)
== END ==
LOC: LAB 12:12
PROVIDERS: PCP Family Medicine; Referring Provider Registered Nurse; Visit Provider Registered Nurse
DX: N20.0 Calculus of kidney (principal); Z01.810 Encounter for preprocedural cardiovascular examination; N13.8 Other obstructive and reflux uropathy; I48.91 Unspecified atrial fibrillation; D50.8 Other iron deficiency anemias; I26.99 Other pulmonary embolism without acute cor pulmonale; E66.01 Morbid (severe) obesity due to excess calories; I10 Essential (primary) hypertension; J45.50 Severe persistent asthma, uncomplicated
CPT/HCPCS: 80053; 81001; 82607; 83036; 83540; 83550; 85025; 87077; 87086

== ENCOUNTER 2024-10-08 08:45 | Emergency (ER) | payer MEDICARE, MEDICAID, SELFPAY ==
[2023-12-10 11:54] VITALS: BMI 64.5
[2024-10-08 08:56] VITALS: BP 149/76; PULSE 86; RESP 14; TEMP 36.8; O2SAT 95; BMI 64.3
--- NOTE | 2024-10-08 09:01 | DI.RAD.S_ITS ---
PROCEDURE: XR WRIST RT MIN 3V INDICATIONS: Right wrist pain upon moving TECHNIQUE: 3 views of the wrist were acquired. COMPARISON: None. FINDINGS: Bones: No fractures or dislocations. No suspicious bony lesions. Soft tissues: No suspicious soft tissue calcifications. IMPRESSION: No acute bony abnormality. Dictated by: Lia Garcia MD, PhD on 10/08/2024 at 9:19 Approved by: Lia Garcia MD, PhD on 10/08/2024 at 9:19
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
--- NOTE | 2024-10-08 10:30 | PC.NURSE ---
Patient did not fit velcro splint, volar fiberglass splint applied per Dr. Muñiz's request.
== END 2024-10-08 10:32 | disposition home or self-care (01) ==
PROVIDERS: Emergency Provider Emergency Medicine; PCP Family Medicine
DX: S63.501A Unspecified sprain of right wrist, initial encounter (principal); X58.XXXA Exposure to other specified factors, initial encounter
CPT/HCPCS: 29125; 73110; 99282; 99283

== ENCOUNTER → 2025-03-06 15:16 | Outpatient (CLI) | payer MEDICARE, MEDICAID, SELFPAY ==
[2023-12-10 11:54] VITALS: BMI 64.5
[2025-03-06 15:55] LABS: Add Manual Diff / Slide Review NO; Hematocrit 41.3 % (36-46); Hemoglobin 14.1 g/dL (12.0-16.0); Lymphocytes Absolute Auto 2000 /uL (1100-4500); Mean Corpuscular HGB Conc 34.1 % (30-36); Mean Corpuscular Hemoglobin 28.8 PG (26-34); Mean Corpuscular Volume 84.7 fL (80-100); Platelet Count 197 X10^3/uL (150-400)
[2025-03-06 16:19] LABS: Hemoglobin A1C% w Est Avg Glu 6.6 % (4.0-6.0)
[2025-03-06 16:42] LABS: Alanine Aminotransferase 50 IU/L (<35); Albumin 4.3 g/dL (3.5-5.0); Albumin Globulin Ratio 1.5 (1.0-2.8); Alkaline Phosphatase 77 U/L (38-126); Blood Urea Nitrogen 12 mg/dL (7-17); Calcium 9.6 mg/dL (8.4-10.2); Carbon Dioxide 23 mmol/L (22-32); Chloride 103 mmol/L (98-107); Estimated Glomerular Filt Rate > 60 mL/min (>60); Globulin 2.8 g/dL (1.7-4.1); Glucose 174 mg/dL (70-99); HEMOLYSIS < 15 (0-50); Potassium 4.2 mmol/L (3.4-5.1); Sodium 137 mmol/L (137-145); Total Protein 7.1 g/dL (6.3-8.2); Uric Acid 7.6 mg/dL (2.5-6.2)
[2025-03-06 16:43] LABS: HEMOLYSIS < 15 (0-50); Iron 81 ug/dL (37-170)
[2025-03-06 16:54] LABS: Percent Iron Saturation 25 % (15-50); Total Iron Binding Capacity 324 ug/dL (265-497); Transferrin 290 mg/dL (206-381)
[2025-03-06 17:01] LABS: Free T4, Direct Thyroxine 1.44 ng/dL (0.78-2.19)
[2025-03-06 17:15] LABS: Thyroid Stimulating Hormone 2.20 uIU/mL (0.47-4.68)
[2025-03-06 17:34] LABS: Vitamin B12 429 pg/mL (239-931)
== END ==
LOC: LAB 15:20
PROVIDERS: PCP Family Medicine; Referring Provider Family Medicine; Visit Provider Family Medicine
DX: E11.65 Type 2 diabetes mellitus with hyperglycemia (principal); D51.9 Vitamin B12 deficiency anemia, unspecified; M1A.00X0 Idiopathic chronic gout, unspecified site, without tophus (tophi)
CPT/HCPCS: 36415; 80053; 82607; 83036; 83540; 83550; 84439; 84443; 84550; 85025